=== PATIENT | male | born 1955 | race Caucasian/White ===

== ENCOUNTER 2016-09-22 14:53 | Inpatient (IN) ==
[2016-09-22] MEDS ORDERED: methylPREDNISolone 125 MG/2 ML VIAL IVP ONE (14:58)
[2016-09-22] MEDS ORDERED: Ipratropium/Albuterol Neb 3 ML IH ONE ×2 (14:58→15:26)
--- NOTE | 2016-09-22 15:16 | Emergency Department Note ---
START Narrative - START START: Patient seen upon arrival from the ambulance. He has had one month progressive dyspnea is worse today. He is on home oxygen but was able to drive the oxygen was not on them and INR saturation of 80%. He was given DuoNeb and to hospital with some partial improvement. He has had nonproductive cough. No pain. He has a history of COPD and quit smoking within the last 4 days. Moderate dyspnea. Breath sounds are symmetrically diminished throughout. No focal rhonchi or consolidation.
[2016-09-22 15:20] LABS: Basophils % 0.2 %; Eosinophils % 0.1 %; Hemoglobin 14.6 g/dL (12.9-16.9); Immature Granulocytes % 0.5 % (0-4); Immature Platelets 3.4 % (1.1-6.1); Lymphocytes # 0.9 K/mcL (0.6-4.6); Lymphocytes % 5.7 %; Mean Corpuscular HGB Conc 33.2 g/dL (31.6-35.5); Mean Corpuscular Hemoglobin 31.5 pg (28.0-33.3); Mean Corpuscular Volume 94.8 fL (83.0-100.0); Mean Platelet Volume 9.9 fL (9.4-12.4); Monocytes # 1.4 K/mcL (0.0-1.3); Monocytes % 8.9 %; Neutrophils # 13.1 K/mcL (1.6-8.9); Platelet Count 180 K/mcL (140-400); Red Blood Count 4.64 M/mcL (4.19-5.50); Red Cell Distribution Width 12.2 % (11.5-14.5); Segmented Neutrophils % 84.6 %
[2016-09-22] MEDS ORDERED: Ipratropium/Albuterol Neb 3 ML ONE (15:26)
[2016-09-22 15:33] LABS: BUN/Creatinine Ratio 25 (6-26); Blood Urea Nitrogen 21 mg/dL (8-26); Calcium 9.2 mg/dL (8.6-10.8); Carbon Dioxide 36 mEq/L (19-29); Chloride 91 mEq/L (98-109); Glucose 139 mg/dL (70-99); Osmolality,Calculated 297 (280-300); Potassium 4.1 mEq/L (3.5-4.5); Sodium 141 mEq/L (136-145); eGFR For African Americans > 60 (> 60); eGFR For Non-African Americans > 60 (> 60)
--- NOTE | 2016-09-22 15:44 | Emergency Department Note ---
Disposition Clinical Impression: Community acquired pneumonia, Elevated troponin Disposition: Admitted As Inpatient [facility]Primary Care Provider[facility] - Forms: ED Satisfaction Letter SOB HPI - General Chief Complaint: ED Shortness of Breath/Dyspnea Stated Complaint: GER Time Seen by Provider: 09/22/16 14:57 Source: patient Limitations: no limitations Nursing Notes Reviewed: Yes Vital Signs Reviewed: Yes - History of Present Illness Pt present complaint of shortness of breath this been going on for several days. Patient denies fevers and chills denies cough is productive. Patient states she feels this tightness in his chest associated with this. Patient is similar episode a few weeks ago and was seen by myself and was able to be discharged home after therapy. Patient's symptoms worsen over the past few days and is been having use his inhaler more often. Patient denies any sick contact - Related Data Home Medications Medication Instructions Recorded Confirmed Acetaminophen [Tylenol] 650 mg PO Q6HR 07/06/16 07/06/16 Albuterol Neb [Proventil Neb] 2.5 mg IH QID PRN 07/06/16 07/06/16 Aripiprazole [Abilify] 15 mg PO DAILY 07/06/16 07/06/16 Aspirin [Lo-Dose Aspirin EC] 81 mg PO DAILY 07/06/16 07/06/16 Baclofen [Lioresal] 10 mg PO TID 07/06/16 07/06/16 Budesonide/Formoterol 160/4.5 2 puff IH BID 07/06/16 07/06/16 [Symbicort 160/4.5] Dicyclomine [Bentyl] 10 mg PO TID 07/06/16 07/06/16 Docusate [Colace] 200 mg PO HS 07/06/16 07/06/16 Etodolac 400 mg PO BID 07/06/16 07/06/16 Fluticasone Propionate Nasal 100 mcg NS DAILY 07/06/16 07/06/16 [Flonase] Hydroxyzine HCl 50 mg PO BID 07/06/16 07/06/16 Lactobacillus Acidophilus 1 cap PO DAILY 07/06/16 07/06/16 [Acidophilus] Melatonin [Melatin] 9 mg PO HS 07/06/16 07/06/16 Oxybutynin Chloride [Ditropan Xl] 5 mg PO HS 07/06/16 07/06/16 Paroxetine [Paxil] 30 mg PO DAILY 07/06/16 07/06/16 Propranolol [Inderal] 10 mg PO BID 07/06/16 07/06/16 Ranitidine HCl [Acid Drill Press Hand] 150 mg PO BID 07/06/16 07/06/16 Tiotropium [Spiriva] 18 mcg IH DAILY 07/06/16 07/06/16 TraZODone 300 mg PO HS 07/06/16 07/06/16 Previous Rx's Medication Instructions Recorded Albuterol Sulfate [Proair Hfa] 2 puff IH Q4H PRN #1 hfa.aer.ad 07/07/16 Levofloxacin [Levaquin] 500 mg PO DAILY #5 tablet 07/07/16 Nicotine Patch [Nicoderm] 21 mg TD DAILY #30 patch.td24 07/07/16 PredniSONE 10 mg PO DAILY #30 tablet 07/07/16 PredniSONE [Prednisone] 50 mg PO DAILY #5 tablet 09/01/16 Albuterol Sulfate [Albuterol 2 puff IH Q4HR #1 hfa.aer.ad 09/03/16 Inhaler] Allergies Allergy/AdvReac Type Severity Reaction Status Date / Time haloperidol [From Haldol] AdvReac Muscle Pain Verified 09/01/16 04:17 [place] AdvReac Weakness Verified 09/01/16 04:17 All systems ED: reviewed and negative except as stated. Past Medical History - Past Medical History Source: patient Medical history: Reports: COPD Surgical history: Reports: cholecystectomy Psychiatric history: Reports: no psych history - Social History Smoking Status: Current every day smoker Smokeless Tobacco Status: No Alcohol use: Reports: none Drug use: Reports: cocaine, other Physical Exam - General Limitations: no limitations General appearance: alert - Head Head exam: atraumatic, normocephalic, normal inspection - Eye Eye exam: Present: normal appearance, PERRL, EOMI - ENT ENT exam: normal exam, normal oropharynx, mucous membranes moist - Neck Neck exam: Present: normal inspection, full ROM, trachea midline - Chest Chest inspection: Present: normal inspection, symmetric chest wall rise - Respiratory Respiratory exam: Present: respiratory distress, wheezes, other (fiar air movement) - Cardiovascular Cardiovascular exam: Present: normal rhythm, tachycardia, normal heart sounds - Abdominal Exam Abdominal exam: Present: soft, Non-Tender. Absent: tenderness, distention, guarding, rebound, rigidity - Extremities Exam Extremities exam: Present: normal inspection, full ROM. Absent: tenderness, pedal edema - Back Exam Back exam: Present: normal inspection, full ROM. Absent: tenderness - Neurological Exam Neurological exam: Present: alert, oriented X3 - Psychiatric Psychiatric exam: Present: normal affect, normal mood - Skin Skin exam: Present: warm, dry, intact, normal color Course Vital Signs Temperature 99.1 F 09/22/16 14:57 Pulse Rate 135 09/22/16 14:57 Respiratory Rate 24 09/22/16 14:57 Blood Pressure 109/66 09/22/16 14:57 O2 Sat by Pulse Oximetry 93 L 09/22/16 14:57 Temperature 99.1 F 09/22/16 14:57 Pulse Rate 124 09/22/16 17:11 Respiratory Rate 20 09/22/16 17:11 Blood Pressure 118/84 09/22/16 17:11 O2 Sat by Pulse Oximetry 94 L 09/22/16 17:11 Oxygen Delivery Oxygen Delivery Nasal Cannula Shortness of Breath/Dyspnea - Differential Diagnosis Likely: acute exacerbation of chronic obstructive airways disease, congestive heart failure, pneumonia, pulmonary embolism - Lab Data Result diagrams: 09/22/16 15:11 09/22/16 15:11 Lab Results 09/22/16 09/22/16 09/22/16 Range/Units 15:11 15:11 15:11 WBC 15.5 H (4.3-11.1) K/mcL RBC 4.64 (4.19-5.50) M/mcL Hgb 14.6 (12.9-16.9) g/dL Hct 44.0 (37.5-50.1) % MCV 94.8 (83.0-100.0) fL MCH 31.5 (28.0-33.3) pg MCHC 33.2 (31.6-35.5) g/dL RDW 12.2 (11.5-14.5) % Plt Count 180 (140-400) K/mcL MPV 9.9 (9.4-12.4) fL Immature Gran % 0.5 (0-4) % Seg Neutrophils % 84.6 % Lymphocytes % 5.7 % Monocytes % 8.9 % Eosinophils % 0.1 % Basophils % 0.2 % Neutrophils # 13.1 H (1.6-8.9) K/mcL Lymphocytes # 0.9 (0.6-4.6) K/mcL Monocytes # 1.4 H (0.0-1.3) K/mcL Eosinophils # 0.0 (0.0-0.6) K/mcL Basophils # 0.0 (0.0-0.2) K/mcL Immature Plt Fraction 3.4 (1.1-6.1) % Sodium 141 (136-145) mEq/L Potassium 4.1 (3.5-4.5) mEq/L Chloride 91 L (98-109) mEq/L Carbon Dioxide 36 H (19-29) mEq/L BUN 21 (8-26) mg/dL Creatinine 0.83 (0.72-1.25) mg/dL Est GFR ( Amer) > 60 (> 60) Est GFR (Non-Af Amer) > 60 (> 60) BUN/Creatinine Ratio 25 (6-26) Glucose 139 H (70-99) mg/dL Calculated Osmolality 297 (280-300) Lactic Acid (0.5-2.2) mmol/L Calcium 9.2 (8.6-10.8) mg/dL Troponin I 0.08 H* (0-0.03) ng/mL 09/22/16 Range/Units 16:54 WBC (4.3-11.1) K/mcL RBC (4.19-5.50) M/mcL Hgb (12.9-16.9) g/dL Hct (37.5-50.1) % MCV (83.0-100.0) fL MCH (28.0-33.3) pg MCHC (31.6-35.5) g/dL RDW (11.5-14.5) % Plt Count (140-400) K/mcL MPV (9.4-12.4) fL Immature Gran % (0-4) % Seg Neutrophils % % Lymphocytes % % Monocytes % % Eosinophils % % Basophils % % Neutrophils # (1.6-8.9) K/mcL Lymphocytes # (0.6-4.6) K/mcL Monocytes # (0.0-1.3) K/mcL Eosinophils # (0.0-0.6) K/mcL Basophils # (0.0-0.2) K/mcL Immature Plt Fraction (1.1-6.1) % Sodium (136-145) mEq/L Potassium (3.5-4.5) mEq/L Chloride (98-109) mEq/L Carbon Dioxide (19-29) mEq/L BUN (8-26) mg/dL Creatinine (0.72-1.25) mg/dL Est GFR ( Amer) (> 60) Est GFR (Non-Af Amer) (> 60) BUN/Creatinine Ratio (6-26) Glucose (70-99) mg/dL Calculated Osmolality (280-300) Lactic Acid 1.3 (0.5-2.2) mmol/L Calcium (8.6-10.8) mg/dL Troponin I (0-0.03) ng/mL - Radiology Data Radiology results reviewed: Yes I reviewed the patient's radiology results. Chest X-Ray 09/22/16 14:58 IMPRESSION: Left lower lobe pneumonia. D/ / Isai Crandall MD / Isai Crandall MD Interpreting Provider: Isai Crandall MD - EKG Data EKG attestation: Yes I reviewed and interpreted this EKG. EKG shows normal: Reports: sinus rhythm Rate: Reports: tachycardia Rhythm: Reports: NSR Critical Care Time Total Critical Care Time: 30 Attestation: Chest X-Ray 09/22/16 14:58
[2016-09-22] MEDS ORDERED: Levofloxacin 750 MG/150 ML 750 MG/150 ML BAG IVPB ONE (16:25)
[2016-09-22] MEDS ORDERED: Acetaminophen 325 MG TABLET PO PRN (19:28)
[2016-09-22] MEDS ORDERED: Naloxone 0.4 MG/ML INJ IVP PRN (19:28)
--- NOTE | 2016-09-22 19:28 | Internal Med History&Physical ---
Date of Encounter: 09/22/16 Time of Encounter: 19:40 Assessment and Plan (1) Acute on chronic respiratory failure with hypoxemia Current visit: Yes Status: Acute Admit inpatient. High risk for complications. Continue to supplementation. Due to pneumonia and acute COPD exacerbation. Patient will stay in the hospital for at least 2 midnights. (2) Elevated troponin Current visit: Yes Status: Acute Troponin at 0.08. Patient did describe chest pain prior to presentation that resolved spontaneously. Patient not having any chest pain at this time. EKG shows normal sinus rhythm with sinus tachycardia without any acute ST segment changes. We will trend troponins. 2-D echocardiogram in the morning. (3) Pneumonia Current visit: Yes Status: Suspected Community-acquired pneumonia. Likely due to strep pneumococcus. We will send blood and sputum for culture and sensitivity. IV antibiotics. We will also send respiratory infection. Qualifiers: Pneumonia type: due to Pneumococcus Laterality: left Lung location: lower lobe of lung Qualified Code(s): J13 - Pneumonia due to Streptococcus pneumoniae (4) Acute exacerbation of chronic obstructive airways disease Current visit: Yes Status: Acute Treat with IV steroids, O2 supplementation and scheduled bronchodilators. Internal Medicine - H&P: HPI Chief complaint: Shortness of breath, fever, cough and sputum production Admitted From: Emergency Dept History of present illness: Mr. Sosa is a 60 year old male patient with history of COPD, chronic respiratory failure on home oxygen 2 L/m presented to the ER complaining of shortness of breath, fever and chills. Symptoms have been going on for about 2 days. Also has been having cough with productive sputum. He had some mild chest pain prior to presentation. It resolved spontaneously. He also has been having palpitations. Past Med Surg Social Fam HX - Past Medical History Medical history: COPD Psychiatric history: anxiety, bipolar, depression - Past Surgical History Surgical History: cholecystectomy - Social History Smoking Status: Former smoker Smokeless Tobacco Status: No Alcohol use: none Drug use: other - Family History Mother Adopted: No Family Member Ethnicity: Non- Living Status: Hx Family Cardiac Disorders: Yes (sister) Hx Family Respiratory Disorders: Yes (dad emphezema) Hx Family Cancer: Yes (lung CA) Hx Family GI Disorders: No Hx Family Endocrine Disorder: Yes (Diabetes) Hx Family Neuromuscular Disorders: No Hx Family Neurologic Disorders: No Hx Family HEENT Disorders: No Hx Family Autoimmune Disorders: No Father Living Status: Hx Family Cancer: Yes (Lung cancer) Internal Medicine - H&P: Meds Acetaminophen [Tylenol] 650 mg PO Q6HR 07/06/16 [History] Albuterol Neb [Proventil Neb] 2.5 mg IH QID PRN 07/06/16 [History] Aripiprazole [Abilify] 15 mg PO DAILY 07/06/16 [History] Aspirin [Lo-Dose Aspirin EC] 81 mg PO DAILY 07/06/16 [History] Baclofen [Lioresal] 10 mg PO TID 07/06/16 [History] Budesonide/Formoterol 160/4.5 [Symbicort 160/4.5] 2 puff IH BID 07/06/16 [ History] Dicyclomine [Bentyl] 10 mg PO TID 07/06/16 [History] Docusate [Colace] 200 mg PO HS 07/06/16 [History] Etodolac 400 mg PO BID 07/06/16 [History] Hydroxyzine HCl 50 mg PO BID 07/06/16 [History] Lactobacillus Acidophilus [Acidophilus] 1 cap PO DAILY 07/06/16 [History] Melatonin [Melatin] 9 mg PO HS 07/06/16 [History] Oxybutynin Chloride [Ditropan Xl] 5 mg PO HS 07/06/16 [History] Paroxetine [Paxil] 30 mg PO DAILY 07/06/16 [History] Propranolol [Inderal] 10 mg PO BID 07/06/16 [History] Ranitidine HCl [Acid Aquatic Instructor] 150 mg PO BID 07/06/16 [History] Tiotropium [Spiriva] 18 mcg IH DAILY 07/06/16 [History] TraZODone 300 mg PO HS 07/06/16 [History] Albuterol Sulfate [Proair Hfa] 2 puff IH Q4H PRN #1 hfa.aer.ad 07/07/16 [Rx] Benzonatate [Tessalon] 100 mg PO TID 09/22/16 [History] Loratadine [Allergy Relief] 10 mg PO DAILY 09/22/16 [History] Nicotine Polacrilex [Nicotine Lozenge] 4 mg BC Q2H PRN 09/22/16 [History] Sildenafil Citrate [Viagra] 50 mg PO AD PRN 09/22/16 [History] Allergies haloperidol [From Haldol] Adverse Reaction (Verified 09/01/16 04:17) Muscle Pain [place] Adverse Reaction (Verified 09/01/16 04:17) Weakness All Systems PM: A 10-system review of systems was performed and is negative for pertinent findings except as documented above in the HPI. - Constitutional Constitutional: chills, fever(s), no night sweats - EENT Eyes: no change in vision, no discharge, no pain, no photophobia Nose, mouth and throat: no dysphagia, no nasal discharge, no neck pain, no sore throat - Cardiovascular Cardiovascular ROS IM: no chest pain, no diaphoresis, no dyspnea, no lightheadedness, no palpitations, no syncope - Respiratory Respiratory: cough, dyspnea, excessive phlegm production, no wheezing - Gastrointestinal Gastrointestinal: no abdominal pain, no diarrhea, no hematemesis, no hematochezia, no melena, no nausea, no vomiting - Musculoskeletal Musculoskeletal ROS IM: no numbness, no tingling - Integumentary Integumentary IM: no rash, no unusual bruising - Neurological Neurological ROS: no confusion, no convulsions, no focal weakness, no numbness, no tingling, no tremor(s) - Hematologic/Lymphatic Hematologic/Lymphatic: no easy bruising - Constitutional Vitals: Temp Pulse Resp BP Pulse Ox 98.5 F 112 18 98/69 95 09/22/16 18:46 09/22/16 18:46 09/22/16 18:46 09/22/16 18:46 09/22/16 18:46 General appearance: Present: cooperative, mild distress, A&O X 3, answers questions appropriately - Eye Eye exam: Present: EOMI, PERRL, conjuntiva pink, sclera anicteric - Neck Neck exam general surgery: Present: supple, trachea midline. Absent: lymphadenopathy - Respiratory Respiratory exam: Present: decreased breath sounds, prolonged expiratory phase, rhonchi, wheezes. Absent: accessory muscle use, rales Additional comments: Coarse breath sounds in left lower lobe - Cardiovascular Cardiovascular exam: Present: RRR, +S1, +S2, tachycardia. Absent: diastolic murmur, gallop, rubs, systolic murmur - GI/Abdominal GI/Abdominal exam: Present: normal bowel sounds, soft, no peritoneal signs. Absent: distended, tenderness - Extremities Exam Extremities exam: Present: warm, radial pulses palpable and symetrical. Absent : calf tenderness, cyanotic, pedal edema - Neurological Exam Neurological exam: Present: CN II-XII intact, oriented X3, no focal deficits. Absent: pronater drift, facial droop, speech deficit - Skin Skin exam: Present: dry, intact Internal Med - H&P Results - Labs CBC & Chem 7: 09/22/16 15:11 09/22/16 15:11 - EKG Data -: EKG Interpreted by Myself EKG shows normal: sinus rhythm Rate: tachycardia - Impressions Chest x-ray shows left lower lobe pneumonia - Attending Attestation This document has been at least partially created by [employer] voice recognition technology by Dr. Hobson. Errors in grammar, wording or other phrases may exist. If errors are found after the documentation is signed, they will be addressed individually in the addendum section of this document when appropriate.
[2016-09-22] MEDS: Budesonide/Formoterol 160/4.5 MDI IH SCH (20:31)
[2016-09-22] MEDS: Ipratropium/Albuterol Neb 3 ML IH SCH ×2 (20:31→23:07)
[2016-09-22] MEDS: traZODone 50 MG TABLET PO SCH (20:35)
[2016-09-22] MEDS: Melatonin 3 MG TABLET PO SCH (20:36)
[2016-09-22] MEDS: Benzonatate 100 MG CAPSULE PO SCH (20:36)
[2016-09-22] MEDS: 0.9 % Sodium Chloride 1,000 ML IVC SCH (20:36)
[2016-09-22] MEDS: Baclofen 10 MG TABLET PO SCH (20:36)
[2016-09-22 22:13] LABS: Adenovirus Not Detected (Not Detect); Bordetella Pertussis Not Detected (Not Detect); Coronavirus 229E Not Detected (Not Detect); Coronavirus HKU1 Not Detected (Not Detect); Coronavirus NL63 Not Detected (Not Detect); Coronavirus OC43 Not Detected (Not Detect); Human Metapneumovirus Not Detected (Not Detect); Human Rhinovirus/Enterovirus Not Detected (Not Detect); Influenza A Subtype 2009 H1 Not Detected (Not Detect); Influenza A Untypeable Not Detected (Not Detect); Influenza B Not Detected (Not Detect); Parainfluenza Virus 1 Not Detected (Not Detect); Parainfluenza Virus 2 Not Detected (Not Detect); Parainfluenza Virus 3 Not Detected (Not Detect); Parainfluenza Virus 4 Not Detected (Not Detect); Respiratory Syncytial Virus Not Detected (Not Detect)
[2016-09-22 22:14] LABS: Chlamydophila pneumoniae Not Detected (Not Detect); Mycoplasma pneumoniae Not Detected (Not Detect)
[2016-09-23] MEDS: methylPREDNISolone 125 MG/2 ML VIAL IVP SCH ×4 (00:07→23:57)
[2016-09-23] MEDS: Ipratropium/Albuterol Neb 3 ML IH SCH ×5 (04:02→19:42)
[2016-09-23] MEDS: 0.9 % Sodium Chloride 1,000 ML IVC SCH ×2 (05:49→18:22)
[2016-09-23] MEDS: *HR* Heparin 5,000 UNIT/ML VIAL SQ SCH ×2 (05:50→18:16)
[2016-09-23 06:37] LABS: Basophils % 0.1 %; Hematocrit 36.2 % (37.5-50.1); Immature Granulocytes % 0.7 % (0-4); Lymphocytes # 0.7 K/mcL (0.6-4.6); Lymphocytes % 6.8 %; Mean Corpuscular Hemoglobin 31.7 pg (28.0-33.3); Mean Corpuscular Volume 93.3 fL (83.0-100.0); Mean Platelet Volume 10.5 fL (9.4-12.4); Monocytes # 0.2 K/mcL (0.0-1.3); Monocytes % 1.7 %; Neutrophils # 9.3 K/mcL (1.6-8.9); Platelet Count 164 K/mcL (140-400); Red Blood Count 3.88 M/mcL (4.19-5.50); Red Cell Distribution Width 12.3 % (11.5-14.5); Segmented Neutrophils % 90.7 %
[2016-09-23 06:39] LABS: Hemoglobin 12.3 g/dL (12.9-16.9)
[2016-09-23 07:05] LABS: BUN/Creatinine Ratio 35 (6-26); Blood Urea Nitrogen 26 mg/dL (8-26); Calcium 8.8 mg/dL (8.6-10.8); Carbon Dioxide 34 mEq/L (19-29); Chloride 96 mEq/L (98-109); Glucose 159 mg/dL (70-99); Osmolality,Calculated 296 (280-300); Potassium 4.4 mEq/L (3.5-4.5); Sodium 139 mEq/L (136-145); eGFR For African Americans > 60 (> 60); eGFR For Non-African Americans > 60 (> 60)
[2016-09-23] MEDS: Budesonide/Formoterol 160/4.5 MDI IH SCH ×2 (08:19→19:42)
--- NOTE | 2016-09-23 08:51 | Internal Med Progress Note ---
Date of Encounter: 09/23/16 Time of Encounter: 08:49 - Assessment and plan (1) Community acquired pneumonia Current Visit: Yes Status: Acute Assessment and plan: The patient presented with respiratory symptoms, leukocytosis and tachycardia. Chest x-ray reviewed independently, shows left basilar infiltrates. Continue IV Levaquin and IV hydration. Follow blood and sputum cultures. Respiratory viral panel negative. Urine Legionella antigen negative. Supplemental oxygen and supportive care. (2) Severe sepsis Current Visit: Yes Status: Acute Assessment and plan: Secondary to pneumonia. Lactic acid noted to be within normal limits. Patient had a mild elevation in troponin, likely related to severe sepsis and is currently normal. Follow-up echocardiogram. Continue IV antibiotics. (3) Acute exacerbation of chronic obstructive airways disease Current Visit: Yes Status: Acute Assessment and plan: Improving. Tapered on IV steroids as tolerated. Continue bronchodilators and inhaled corticosteroids. Patient is noted to be on home oxygen, continue to wean down FiO2 to baseline as tolerated. (4) Acute on chronic respiratory failure with hypoxemia Current Visit: Yes Status: Acute (5) Depression Current Visit: Yes Status: Chronic Assessment and plan: Resume home medications. Qualifiers: Depression Type: unspecified Qualified Code(s): F32.9 - Major depressive disorder, single episode, unspecified (6) Bipolar disease, chronic Current Visit: Yes Status: Chronic (7) Anxiety Current Visit: Yes Status: Chronic - Subjective Interval history: Feels better but drowsy, as he did not have good sleep last night. Continues to have productive cough but improved shortness of breath. - Constitutional Vitals: Temp Pulse Resp BP Pulse Ox 98.4 F 94 16 108/77 90 L 09/23/16 07:45 09/23/16 07:45 09/23/16 07:45 09/23/16 07:45 09/23/16 07:45 General appearance: Present: A&O X 3, answers questions appropriately - Respiratory Respiratory exam: Present: CTAB. Absent: accessory muscle use, rales, rhonchi, wheezes - Cardiovascular Cardiovascular exam: Present: RRR, +S1, +S2. Absent: diastolic murmur, gallop, rubs, systolic murmur - GI/Abdominal GI/Abdominal exam: Present: normal bowel sounds, soft, no peritoneal signs. Absent: distended, tenderness - Extremities Exam Extremities exam: Present: full ROM, warm, radial pulses palpable and symetrical. Absent: calf tenderness, cyanotic, pedal edema - Neurological Exam Neurological exam: Present: CN II-XII intact, oriented X3, no focal deficits. Absent: pronater drift, facial droop, speech deficit Internal Medicine: Result - Labs CBC & Chem 7: 09/23/16 06:06 09/23/16 06:06 Labs: Short CBC 09/23/16 Range/Units 06:06 WBC 10.3 (4.3-11.1) K/mcL Hgb 12.3 L D (12.9-16.9) g/dL Hct 36.2 L (37.5-50.1) % Plt Count 164 (140-400) K/mcL Neutrophils # 9.3 H (1.6-8.9) K/mcL BMP 09/23/16 06:06 Sodium 139 Potassium 4.4 Chloride 96 L Carbon Dioxide 34 H BUN 26 Creatinine 0.74 Glucose 159 H Calcium 8.8 Cardiac Enzymes 09/22/16 09/23/16 Range/Units 21:13 06:06 Troponin I 0.05 H* 0.03 (0-0.03) ng/mL Consult Discharge Plan - Plan [facility]errals: [facility] [Primary Care Provider] -
[2016-09-23] MEDS: Baclofen 10 MG TABLET PO SCH ×3 (09:57→21:20)
[2016-09-23] MEDS: Loratadine 10 MG TABLET PO SCH (09:58)
[2016-09-23] MEDS: ARIPiprazole 5 MG TABLET PO SCH (09:58)
[2016-09-23] MEDS: Lactobacillus 1 EACH CAP.SPRINK PO SCH (09:58)
[2016-09-23] MEDS: Benzonatate 100 MG CAPSULE PO SCH ×3 (09:58→21:19)
[2016-09-23] MEDS: Aspirin Enteric Coated 81 MG Tablet PO SCH (09:58)
[2016-09-23] MEDS: Famotidine 20 MG TABLET PO SCH (09:58)
[2016-09-23] MEDS: Levofloxacin 750 MG/150 ML 750 MG/150 ML BAG IVPB SCH (09:59)
--- NOTE | 2016-09-23 10:31 | ECHO - Doppler Report ---
Echocardiogram Name: Pa Sosa Date of Study: 09/23/2016 Date: 1955 Ht: 70.0 in Medical Record#: [id number] Age: 60 Wt: 150.0 lb Gender: Male BSA: 1.85 Order #: [id number] Location: [facility] Room #: 2NE23 Reading Physician: Mone Sharma DO Boat Puller: Phillip Moreland RN Ordering Physician: Polina Hobson MD Primary Physician: [facility] Indications: Elevated Troponin Impressions: LVEF 65%. Normal left ventricular size and systolic function. Normal diastolic function of the left ventricle. Normal right ventricular size and function. No significant valvular dysfunction. No pulmonary hypertension. Left Ventricular Wall Motion: Rest Echo Findings All wall segments showed normal motion. Findings: Study Quality * Technically adequate exam. ECG Findings * Normal sinus rhythm. Left Ventricle * Normal LV chamber size, wall thickness and function. * Normal left ventricular diastolic function. * LVEF 65%. Left Atrium * Normal left atrial size. Mitral Valve * Normal mitral valve structure. * No mitral stenosis. * Trace mitral regurgitation. Tricuspid Valve * Trace tricuspid regurgitation. * Normal tricuspid valve structure. * Estimated RA pressure is 3 mmHg. * Estimated RVSP is 34 mmHg. * No pulmonary hypertension. Pulmonic Valve * Pulmonic valve is not well visualized. * No pulmonic stenosis. * No pulmonic regurgitation. Pulmonary Artery * Pulmonary artery not well visualized. Right Ventricle * Normal right ventricular structure and function. Right Atrium * Normal right atrial size. Aortic Valve * No aortic stenosis. * Trace aortic regurgitation. Interatrial Septum * No evidence of PFO by color Doppler. IVC * Normal IVC dimensions and inspiratory collapse. Pericardium * There is no pericardial effusion present. Aorta * Not well visualized. History Hypertension Hypercholesteremia Years 35 Packs 2 Family History of CAD Measurements: BP: 108/ 77 2D Normal Values RVIDd: 2.70 cm <2.7 cm IVSd: .70 cm 0.6 - 1.0 cm LVIDd: 5.00 cm 3.7 - 5.6 cm LVPWd: .70 cm 0.6 - 1.1 cm LVIDs: 3.00 cm 1.5 - 3.6 cm LA: 2.60 cm 2.0 - 4.0cm %FS: 40.00 cm >25 % LVOT Diam: 2.00 cm LA volume: 39 Mitral Valve Peak E:.95 m/sec Peak A:.87 m/sec E/A Ratio:1.1 Peak E' Lat [place]:9.36 cm/s Peak E' Med [place]:13 cm/s E/E' Lat Ratio:10.1 E/E' Med Ratio:7.3 Aortic Valve AI pressure Half-time: 373.00 msec Tricuspid Valve TV Regurg Peak Grad: 31.00mmHg TV Regurg Peak [place]: 2.80m/sec Updated by Mone Sharma on 09/23/2016 10:24:31 AM electronically signed on 09/23/2016 10:25:24 AM with status of Final Wall Motion [place]: 1=Normal, 2=Hypokinesis, 3=Akinesis, 4=Dyskinesis, 5=Aneurysmal, 6=Hyperkinetic, X=Not Visualized (Blank)=Missing
--- NOTE | 2016-09-23 16:57 | Electrocardiograph Report ---
[place] [id number] Test Date: 2016-09-22 Pat Name: Pa Sosa Department: 103 Room: 2NE23 Gender: M Personal Care Aide: : 1955 Requested By: Rebekah Goldsmith Order Number: [id number] Reading MD: Ivan Daniels Measurements Intervals [place] Rate: 124 P: 85 AK: 166 QRS: 82 QRSD: 79 T: 74 QT: 284 QTc: 358 Interpretive Statements SINUS TACHYCARDIA ANTEROSEPTAL MYOCARDIAL INFARCTION, OF INDETERMINATE AGE Electronically Signed On 09-23-2016 16:55:07 EST by Ivan Daniels
[2016-09-23] MEDS: Melatonin 3 MG TABLET PO SCH (21:20)
[2016-09-23] MEDS: traZODone 50 MG TABLET PO SCH (21:22)
[2016-09-24] MEDS: Ipratropium/Albuterol Neb 3 ML IH SCH ×7 (00:12→23:53)
[2016-09-24] MEDS: 0.9 % Sodium Chloride 1,000 ML IVC SCH ×3 (04:58→23:39)
[2016-09-24] MEDS: *HR* Heparin 5,000 UNIT/ML VIAL SQ SCH ×2 (05:00→18:56)
[2016-09-24] MEDS: Budesonide/Formoterol 160/4.5 MDI IH SCH ×2 (07:56→20:32)
[2016-09-24] MEDS: methylPREDNISolone 125 MG/2 ML VIAL IVP SCH ×3 (11:15→23:39)
[2016-09-24] MEDS: ARIPiprazole 5 MG TABLET PO SCH (11:16)
[2016-09-24] MEDS: Lactobacillus 1 EACH CAP.SPRINK PO SCH (11:16)
[2016-09-24] MEDS: Benzonatate 100 MG CAPSULE PO SCH ×3 (11:16→20:44)
[2016-09-24] MEDS: Aspirin Enteric Coated 81 MG Tablet PO SCH (11:17)
[2016-09-24] MEDS: Levofloxacin 750 MG/150 ML 750 MG/150 ML BAG IVPB SCH (11:17)
[2016-09-24] MEDS: Famotidine 20 MG TABLET PO SCH (11:17)
[2016-09-24] MEDS: Loratadine 10 MG TABLET PO SCH (11:17)
[2016-09-24] MEDS: Baclofen 10 MG TABLET PO SCH ×3 (11:17→20:44)
--- NOTE | 2016-09-24 16:42 | Internal Med Progress Note ---
Date of Encounter: 09/24/16 Time of Encounter: 10:00 - Assessment and plan (1) Acute exacerbation of chronic obstructive airways disease Current Visit: Yes Status: Acute Assessment and plan: Improving. Tapered on IV steroids as tolerated. Continue bronchodilators and inhaled corticosteroids. Patient is noted to be on home oxygen, continue to wean down FiO2 to baseline as tolerated. (2) Community acquired pneumonia Current Visit: Yes Status: Acute Assessment and plan: The patient presented with respiratory symptoms, leukocytosis and tachycardia. Chest x-ray reviewed independently, shows left basilar infiltrates. Continue IV Levaquin and IV hydration. Follow blood and sputum cultures. Respiratory viral panel negative. Urine Legionella antigen negative. Supplemental oxygen and supportive care. (3) Severe sepsis Current Visit: Yes Status: Acute Assessment and plan: Secondary to pneumonia. Lactic acid noted to be within normal limits. Patient had a mild elevation in troponin, likely related to severe sepsis and is currently normal. Echocardiogram unremarkable. Continue IV antibiotics. (4) Anxiety Current Visit: Yes Status: Chronic Assessment and plan: Continue home medications (5) Bipolar disease, chronic Current Visit: Yes Status: Chronic Assessment and plan: Continue home medication (6) Depression Current Visit: Yes Status: Chronic Assessment and plan: Resume home medications. Qualifiers: Depression Type: unspecified Qualified Code(s): F32.9 - Major depressive disorder, single episode, unspecified (7) DVT prophylaxis Current Visit: No Status: Acute Assessment and plan: Heparin subcutaneously. - Time Spent With Patient 25 - 35 minutes - Subjective Interval history: Patient is a 60-year-old male admitted for pneumonia. His past medical history is significant for COPD, anxiety, and depression. Patient was seen and examined. No fever, patient complaining of severe cough, nonproductive. Shortness of breath has improved after treatment. Vitals are stable. We will continue antibiotic, steroid, and bronchodilator. - Constitutional Vitals: Temp Pulse Resp BP Pulse Ox 98.2 F 81 18 114/70 95 09/24/16 15:20 09/24/16 15:20 09/24/16 15:20 09/24/16 15:20 09/24/16 15:20 General appearance: Present: A&O X 3, answers questions appropriately - Head Head exam: Present: atraumatic, normocephalic - Eye Eye exam: Present: PERRL, conjuntiva pink, sclera anicteric Pupils: Present: PERRL - Neck Neck exam general surgery: Present: supple, trachea midline. Absent: lymphadenopathy - Respiratory Respiratory exam: Present: CTAB, wheezes (Scattered wheezes bilaterally). Absent: accessory muscle use, rales, rhonchi - Cardiovascular Cardiovascular exam: Present: RRR, +S1, +S2. Absent: diastolic murmur, gallop, rubs, systolic murmur - GI/Abdominal GI/Abdominal exam: Present: normal bowel sounds, soft, no peritoneal signs. Absent: distended, tenderness - Extremities Exam Extremities exam: Present: warm, radial pulses palpable and symetrical. Absent : calf tenderness, cyanotic, pedal edema - Neurological Exam Neurological exam: Present: CN II-XII intact, oriented X3, no focal deficits. Absent: pronater drift, facial droop, speech deficit - Skin Skin exam: Present: dry, intact Internal Medicine: Result - Labs CBC & Chem 7: 09/23/16 06:06 09/23/16 06:06 Consult Discharge Plan - Plan [facility]: [facility] [Primary Care Provider[facility] -
[2016-09-24] MEDS: traZODone 50 MG TABLET PO SCH (20:43)
[2016-09-24] MEDS: Melatonin 3 MG TABLET PO SCH (20:44)
[2016-09-25] MEDS: Ipratropium/Albuterol Neb 3 ML IH SCH ×6 (03:34→23:42)
[2016-09-25 05:22] LABS: Basophils % 0.1 %; Hematocrit 36.1 % (37.5-50.1); Hemoglobin 11.8 g/dL (12.9-16.9); Immature Granulocytes % 0.3 % (0-4); Lymphocytes # 0.6 K/mcL (0.6-4.6); Lymphocytes % 7.5 %; Mean Corpuscular HGB Conc 32.7 g/dL (31.6-35.5); Mean Corpuscular Hemoglobin 31.4 pg (28.0-33.3); Mean Platelet Volume 10.2 fL (9.4-12.4); Monocytes # 0.2 K/mcL (0.0-1.3); Monocytes % 2.2 %; Neutrophils # 7.7 K/mcL (1.6-8.9); Platelet Count 164 K/mcL (140-400); Red Blood Count 3.76 M/mcL (4.19-5.50); Red Cell Distribution Width 12.2 % (11.5-14.5); Segmented Neutrophils % 89.9 %
[2016-09-25 05:41] LABS: BUN/Creatinine Ratio 40 (6-26); Blood Urea Nitrogen 28 mg/dL (8-26); Calcium 8.2 mg/dL (8.6-10.8); Carbon Dioxide 34 mEq/L (19-29); Chloride 102 mEq/L (98-109); Glucose 188 mg/dL (70-99); Osmolality,Calculated 302 (280-300); Potassium 4.5 mEq/L (3.5-4.5); Sodium 141 mEq/L (136-145); eGFR For African Americans > 60 (> 60); eGFR For Non-African Americans > 60 (> 60)
[2016-09-25] MEDS: *HR* Heparin 5,000 UNIT/ML VIAL SQ SCH ×2 (05:46→18:05)
[2016-09-25] MEDS: Budesonide/Formoterol 160/4.5 MDI IH SCH ×2 (07:30→20:38)
[2016-09-25] MEDS: Loratadine 10 MG TABLET PO SCH (08:32)
[2016-09-25] MEDS: Baclofen 10 MG TABLET PO SCH ×3 (08:34→21:33)
[2016-09-25] MEDS: Famotidine 20 MG TABLET PO SCH (08:34)
[2016-09-25] MEDS: ARIPiprazole 5 MG TABLET PO SCH (08:34)
[2016-09-25] MEDS: Benzonatate 100 MG CAPSULE PO SCH ×3 (08:34→21:34)
[2016-09-25] MEDS: Lactobacillus 1 EACH CAP.SPRINK PO SCH (08:34)
[2016-09-25] MEDS: methylPREDNISolone 125 MG/2 ML VIAL IVP SCH ×3 (08:35→23:38)
[2016-09-25] MEDS: Levofloxacin 750 MG/150 ML 750 MG/150 ML BAG IVPB SCH (08:36)
[2016-09-25] MEDS: Aspirin Enteric Coated 81 MG Tablet PO SCH (08:45)
[2016-09-25] MEDS ORDERED: Magnesium Sulfate 1 GM in D5% in Water 100 ML IVPB ONE (15:11)
--- NOTE | 2016-09-25 17:14 | Internal Med Progress Note ---
Date of Encounter: 09/25/16 Time of Encounter: 11:00 - Assessment and plan (1) Acute exacerbation of chronic obstructive airways disease Current Visit: Yes Status: Acute Assessment and plan: Improving. Tapered on IV steroids as tolerated. Continue bronchodilators and inhaled corticosteroids. Patient is noted to be on home oxygen, continue to wean down FiO2 to baseline as tolerated. Give 1 g magnesium IV today. Changes propranolol to metoprolol (2) Community acquired pneumonia Current Visit: Yes Status: Acute Assessment and plan: The patient presented with respiratory symptoms, leukocytosis and tachycardia. Chest x-ray reviewed independently, shows left basilar infiltrates. Continue Levaquin. Follow blood and sputum cultures. Respiratory viral panel negative. Urine Legionella antigen negative. Supplemental oxygen and supportive care. (3) Severe sepsis Current Visit: Yes Status: Acute Assessment and plan: Secondary to pneumonia. Lactic acid noted to be within normal limits. Patient had a mild elevation in troponin, likely related to severe sepsis and is currently normal. Echocardiogram unremarkable. Continue antibiotics. (4) Anxiety Current Visit: Yes Status: Chronic Assessment and plan: Continue home medications (5) Bipolar disease, chronic Current Visit: Yes Status: Chronic Assessment and plan: Continue home medication (6) Depression Current Visit: Yes Status: Chronic Assessment and plan: Resume home medications. Qualifiers: Depression Type: unspecified Qualified Code(s): F32.9 - Major depressive disorder, single episode, unspecified (7) DVT prophylaxis Current Visit: No Status: Acute Assessment and plan: Heparin subcutaneously. - Time Spent With Patient 25 - 35 minutes - Subjective Interval history: Patient is a 60-year-old male admitted for pneumonia. His past medical history is significant for COPD, anxiety, and depression. Patient was seen and examined. Still shortness of breath and desaturation on exertion. Improved cough after cough syrup to use. Vitals are stable. We will continue antibiotic, steroid, and bronchodilator. Given patient magnesium iv 1 g. Changes his propranolol to metoprolol to avoid bronchial side effect. - Constitutional Vitals: Temp Pulse Resp BP Pulse Ox 97.8 F 87 18 126/81 95 09/25/16 15:19 09/25/16 15:19 09/25/16 15:19 09/25/16 15:19 09/25/16 15:19 General appearance: Present: A&O X 3, answers questions appropriately - Head Head exam: Present: atraumatic, normocephalic - Eye Eye exam: Present: PERRL, conjuntiva pink, sclera anicteric Pupils: Present: PERRL - Neck Neck exam general surgery: Present: supple, trachea midline. Absent: lymphadenopathy - Respiratory Respiratory exam: Present: CTAB, wheezes (Scattered wheezes bilaterally). Absent: accessory muscle use, rales, rhonchi - Cardiovascular Cardiovascular exam: Present: RRR, +S1, +S2. Absent: diastolic murmur, gallop, rubs, systolic murmur - GI/Abdominal GI/Abdominal exam: Present: normal bowel sounds, soft, no peritoneal signs. Absent: distended, tenderness - Extremities Exam Extremities exam: Present: warm, radial pulses palpable and symetrical. Absent : calf tenderness, cyanotic, pedal edema - Neurological Exam Neurological exam: Present: CN II-XII intact, oriented X3, no focal deficits. Absent: pronater drift, facial droop, speech deficit - Skin Skin exam: Present: dry, intact Internal Medicine: Result - Labs CBC & Chem 7: 09/25/16 04:30 09/25/16 04:30 Labs: Short CBC 09/25/16 Range/Units 04:30 WBC 8.6 (4.3-11.1) K/mcL Hgb 11.8 L (12.9-16.9) g/dL Hct 36.1 L (37.5-50.1) % Plt Count 164 (140-400) K/mcL Neutrophils # 7.7 (1.6-8.9) K/mcL BMP 09/25/16 04:30 Sodium 141 Potassium 4.5 Chloride 102 Carbon Dioxide 34 H BUN 28 H Creatinine 0.70 L Glucose 188 H Calcium 8.2 L Consult Discharge Plan - Plan [facility]errals: [facility] [Primary Care Provider[facility] - 10/03/16 8:15 am
[2016-09-25] MEDS ORDERED: Furosemide 20 MG/2 ML VIAL IVP ONE (18:13)
[2016-09-25 18:35] LABS: ABG Base Excess 9.3 mEq/L (-2.0 to 3.0); ABG Oxygen Saturation 84 % (95-98); ABG PH 7.27 pH Units (7.32-7.45); ABG PO2 56 mmHg (85-104); ABG TCO2 42.7 mEq/L (20-26); Blood Gas FiO2 40 %
[2016-09-25 18:37] LABS: ABG PCO2 87 mmHg (35-45)
[2016-09-25] MEDS: traZODone 50 MG TABLET PO SCH (21:32)
[2016-09-25] MEDS: Melatonin 3 MG TABLET PO SCH (21:34)
[2016-09-26 01:19] LABS: ABG Base Excess 23.8 mEq/L (-2.0 to 3.0); ABG HCO3 52.1 mEQ/L (21-27); ABG Oxygen Saturation 99 % (95-98); ABG PH 7.45 pH Units (7.32-7.45); ABG PO2 120 mmHg (85-104); ABG TCO2 54.4 mEq/L (20-26); Blood Gas FiO2 40 %
[2016-09-26 01:20] LABS: ABG PCO2 75 mmHg (35-45)
[2016-09-26] MEDS: Ipratropium/Albuterol Neb 3 ML IH SCH ×5 (04:06→20:48)
[2016-09-26] MEDS: *HR* Heparin 5,000 UNIT/ML VIAL SQ SCH ×2 (05:03→17:17)
[2016-09-26 06:50] LABS: Hematocrit 36.4 % (37.5-50.1); Immature Granulocytes % 0.6 % (0-4); Lymphocytes # 0.7 K/mcL (0.6-4.6); Lymphocytes % 9.2 %; Mean Corpuscular Hemoglobin 31.6 pg (28.0-33.3); Mean Corpuscular Volume 95.8 fL (83.0-100.0); Mean Platelet Volume 10.3 fL (9.4-12.4); Monocytes # 0.3 K/mcL (0.0-1.3); Monocytes % 3.2 %; Platelet Count 164 K/mcL (140-400); Red Cell Distribution Width 11.9 % (11.5-14.5)
[2016-09-26 06:58] LABS: BUN/Creatinine Ratio 37 (6-26); Blood Urea Nitrogen 26 mg/dL (8-26); Calcium 8.2 mg/dL (8.6-10.8); Chloride 94 mEq/L (98-109); Glucose 189 mg/dL (70-99); Osmolality,Calculated 302 (280-300); Potassium 4.4 mEq/L (3.5-4.5); Sodium 141 mEq/L (136-145); eGFR For African Americans > 60 (> 60); eGFR For Non-African Americans > 60 (> 60)
[2016-09-26 07:04] LABS: Carbon Dioxide 40 mEq/L (19-29)
[2016-09-26] MEDS: Famotidine 20 MG TABLET PO SCH (07:45)
[2016-09-26] MEDS: Loratadine 10 MG TABLET PO SCH (07:45)
[2016-09-26] MEDS: Lactobacillus 1 EACH CAP.SPRINK PO SCH (07:45)
[2016-09-26] MEDS: Benzonatate 100 MG CAPSULE PO SCH ×3 (07:46→21:46)
[2016-09-26] MEDS: ARIPiprazole 5 MG TABLET PO SCH (07:46)
[2016-09-26] MEDS: Baclofen 10 MG TABLET PO SCH ×3 (07:46→21:48)
[2016-09-26] MEDS: levoFLOXacin 750 MG TABLET PO SCH (07:46)
[2016-09-26] MEDS: Aspirin Enteric Coated 81 MG Tablet PO SCH (07:46)
[2016-09-26] MEDS: methylPREDNISolone 125 MG/2 ML VIAL IVP SCH ×2 (07:47→17:17)
[2016-09-26] MEDS: Budesonide/Formoterol 160/4.5 MDI IH SCH ×2 (08:00→20:49)
[2016-09-26] MEDS ORDERED: Tiotropium 18 MCG inhalation IH SCH (09:00)
--- NOTE | 2016-09-26 15:36 | Internal Med Progress Note ---
Date of Encounter: 09/26/16 Time of Encounter: 10:00 - Assessment and plan (1) Acute exacerbation of chronic obstructive airways disease Current Visit: Yes Status: Acute Assessment and plan: Improving. Tapered on IV steroids as tolerated. Continue bronchodilators and inhaled corticosteroids. Patient is noted to be on home oxygen, continue to wean down FiO2 to baseline as tolerated. Give 1 g magnesium IV today. Changes propranolol to metoprolol. Add mucomyst IH. (2) Community acquired pneumonia Current Visit: Yes Status: Acute Assessment and plan: The patient presented with respiratory symptoms, leukocytosis and tachycardia. Chest x-ray reviewed independently, shows left basilar infiltrates. Continue Levaquin. Follow blood and sputum cultures. Respiratory viral panel negative. Urine Legionella antigen negative. Supplemental oxygen and supportive care. (3) Severe sepsis Current Visit: Yes Status: Acute Assessment and plan: Secondary to pneumonia. Lactic acid noted to be within normal limits. Patient had a mild elevation in troponin, likely related to severe sepsis and is currently normal. Echocardiogram unremarkable. Continue antibiotics. (4) Anxiety Current Visit: Yes Status: Chronic Assessment and plan: Continue home medications (5) Bipolar disease, chronic Current Visit: Yes Status: Chronic Assessment and plan: Continue home medication (6) Depression Current Visit: Yes Status: Chronic Assessment and plan: Resume home medications. Qualifiers: Depression Type: unspecified Qualified Code(s): F32.9 - Major depressive disorder, single episode, unspecified (7) DVT prophylaxis Current Visit: No Status: Acute Assessment and plan: Heparin subcutaneously. - Time Spent With Patient 25 - 35 minutes - Subjective Interval history: Patient is a 60-year-old male admitted for pneumonia. His past medical history is significant for COPD, anxiety, and depression. Patient was seen and examined. Still shortness of breath and desaturation on exertion. Improved cough after cough syrup to use. Vitals are stable. We will continue antibiotic, steroid, and bronchodilator. Given patient magnesium iv 1 g. Changes his propranolol to metoprolol to avoid bronchial side effect. - Constitutional Vitals: Temp Pulse Resp BP Pulse Ox 98.2 F 78 15 131/76 93 L 09/26/16 07:00 09/26/16 11:00 09/26/16 11:00 09/26/16 11:00 09/26/16 11:00 General appearance: Present: A&O X 3, answers questions appropriately - Head Head exam: Present: atraumatic, normocephalic - Eye Eye exam: Present: PERRL, conjuntiva pink, sclera anicteric Pupils: Present: PERRL - Neck Neck exam general surgery: Present: supple, trachea midline. Absent: lymphadenopathy - Respiratory Respiratory exam: Present: CTAB, wheezes (Scattered wheezes bilaterally). Absent: accessory muscle use, rales, rhonchi - Cardiovascular Cardiovascular exam: Present: RRR, +S1, +S2. Absent: diastolic murmur, gallop, rubs, systolic murmur - GI/Abdominal GI/Abdominal exam: Present: normal bowel sounds, soft, no peritoneal signs. Absent: distended, tenderness - Extremities Exam Extremities exam: Present: warm, radial pulses palpable and symetrical. Absent : calf tenderness, cyanotic, pedal edema - Neurological Exam Neurological exam: Present: CN II-XII intact, oriented X3, no focal deficits. Absent: pronater drift, facial droop, speech deficit - Skin Skin exam: Present: dry, intact Internal Medicine: Result - Labs CBC & Chem 7: 09/26/16 05:44 09/26/16 05:44 Labs: Short CBC 09/26/16 Range/Units 05:44 WBC 8.0 (4.3-11.1) K/mcL Hgb 12.0 L (12.9-16.9) g/dL Hct 36.4 L (37.5-50.1) % Plt Count 164 (140-400) K/mcL Neutrophils # 7.0 (1.6-8.9) K/mcL BMP 09/26/16 05:44 Sodium 141 Potassium 4.4 Chloride 94 L Carbon Dioxide 40 H* BUN 26 Creatinine 0.71 L Glucose 189 H Calcium 8.2 L - ABG Interpretation ABG results: ABG ABG pH 7.45 pH Units (7.32-7.45) 09/26/16 01:08 ABG pCO2 75 mmHg (35-45) H* 09/26/16 01:08 ABG pO2 120 mmHg (85-104) H 09/26/16 01:08 ABG O2 Saturation 99 % (95-98) H 09/26/16 01:08 Consult Discharge Plan - Plan [facility]errals: [facility] [Primary Care Provider[facility] - 10/03/16 8:15 am
[2016-09-26] MEDS: Acetylcysteine 10% 2 ML INHSOL IH SCH ×2 (16:00→20:48)
[2016-09-26] MEDS: traZODone 50 MG TABLET PO SCH (21:46)
[2016-09-26] MEDS: Melatonin 3 MG TABLET PO SCH (21:47)
[2016-09-27] MEDS: Ipratropium/Albuterol Neb 3 ML IH SCH ×7 (00:22→23:25)
[2016-09-27] MEDS: Acetylcysteine 10% 2 ML INHSOL IH SCH ×7 (00:23→23:25)
[2016-09-27 05:52] LABS: Basophils % 0.1 %; Hematocrit 36.6 % (37.5-50.1); Hemoglobin 12.3 g/dL (12.9-16.9); Immature Granulocytes % 0.7 % (0-4); Lymphocytes # 0.6 K/mcL (0.6-4.6); Lymphocytes % 6.8 %; Mean Corpuscular HGB Conc 33.6 g/dL (31.6-35.5); Mean Corpuscular Hemoglobin 31.1 pg (28.0-33.3); Mean Corpuscular Volume 92.7 fL (83.0-100.0); Mean Platelet Volume 10.1 fL (9.4-12.4); Monocytes # 0.2 K/mcL (0.0-1.3); Monocytes % 2.4 %; Neutrophils # 7.5 K/mcL (1.6-8.9); Platelet Count 182 K/mcL (140-400); Red Blood Count 3.95 M/mcL (4.19-5.50); Red Cell Distribution Width 11.6 % (11.5-14.5)
[2016-09-27 06:01] LABS: BUN/Creatinine Ratio 38 (6-26); Blood Urea Nitrogen 29 mg/dL (8-26); Carbon Dioxide 36 mEq/L (19-29); Chloride 93 mEq/L (98-109); Glucose 272 mg/dL (70-99); Osmolality,Calculated 301 (280-300); Potassium 4.3 mEq/L (3.5-4.5); Sodium 138 mEq/L (136-145); eGFR For African Americans > 60 (> 60); eGFR For Non-African Americans > 60 (> 60)
[2016-09-27] MEDS: *HR* Heparin 5,000 UNIT/ML VIAL SQ SCH ×2 (06:09→17:26)
[2016-09-27] MEDS: Budesonide/Formoterol 160/4.5 MDI IH SCH ×2 (07:41→20:30)
[2016-09-27] MEDS: Aspirin Enteric Coated 81 MG Tablet PO SCH (10:45)
[2016-09-27] MEDS: methylPREDNISolone 125 MG/2 ML VIAL IVP SCH ×4 (10:45→23:37)
[2016-09-27] MEDS: Loratadine 10 MG TABLET PO SCH (10:46)
[2016-09-27] MEDS: Baclofen 10 MG TABLET PO SCH ×3 (10:46→19:55)
[2016-09-27] MEDS: Lactobacillus 1 EACH CAP.SPRINK PO SCH (10:46)
[2016-09-27] MEDS: ARIPiprazole 5 MG TABLET PO SCH (10:46)
[2016-09-27] MEDS: Benzonatate 100 MG CAPSULE PO SCH ×3 (10:46→19:55)
[2016-09-27] MEDS: Famotidine 20 MG TABLET PO SCH (10:46)
[2016-09-27] MEDS: levoFLOXacin 750 MG TABLET PO SCH (10:46)
--- NOTE | 2016-09-27 16:26 | Internal Med Progress Note ---
Date of Encounter: 09/27/16 Time of Encounter: 11:00 - Assessment and plan (1) Acute exacerbation of chronic obstructive airways disease Current Visit: Yes Status: Acute Assessment and plan: Improving. Tapered on IV steroids as tolerated. Continue bronchodilators and inhaled corticosteroids. Patient is noted to be on home oxygen, continue to wean down FiO2 to baseline as tolerated. Start to taper down steroids from today. (2) Community acquired pneumonia Current Visit: Yes Status: Acute Assessment and plan: The patient presented with respiratory symptoms, leukocytosis and tachycardia. Chest x-ray reviewed independently, shows left basilar infiltrates. Continue Levaquin. Follow blood and sputum cultures. Respiratory viral panel negative. Urine Legionella antigen negative. Supplemental oxygen and supportive care. (3) Severe sepsis Current Visit: Yes Status: Acute Assessment and plan: Secondary to pneumonia. Lactic acid noted to be within normal limits. Patient had a mild elevation in troponin, likely related to severe sepsis and is currently normal. Echocardiogram unremarkable. Continue antibiotics. (4) Anxiety Current Visit: Yes Status: Chronic Assessment and plan: Continue home medications (5) Bipolar disease, chronic Current Visit: Yes Status: Chronic Assessment and plan: Continue home medication (6) Depression Current Visit: Yes Status: Chronic Assessment and plan: Resume home medications. Qualifiers: Depression Type: unspecified Qualified Code(s): F32.9 - Major depressive disorder, single episode, unspecified (7) DVT prophylaxis Current Visit: No Status: Acute Assessment and plan: Heparin subcutaneously. - Time Spent With Patient 25 - 35 minutes - Subjective Interval history: Patient is a 60-year-old male admitted for pneumonia. His past medical history is significant for COPD, anxiety, and depression. Patient was seen and examined. Still shortness of breath and desaturation on exertion, significantly improved compared with yesterday. Improved cough after cough syrup to use. Vitals are stable. We will continue antibiotic, steroid, and bronchodilator. Taper down steroids. - Constitutional Vitals: Temp Pulse Resp BP Pulse Ox 97.4 F L 78 18 126/74 93 L 09/27/16 07:54 09/27/16 07:54 09/27/16 16:06 09/27/16 07:54 09/27/16 16:06 General appearance: Present: A&O X 3, answers questions appropriately - Head Head exam: Present: atraumatic, normocephalic - Eye Eye exam: Present: PERRL, conjuntiva pink, sclera anicteric Pupils: Present: PERRL - Neck Neck exam general surgery: Present: supple, trachea midline. Absent: lymphadenopathy - Respiratory Respiratory exam: Present: CTAB, wheezes (Scattered wheezes on left side). Absent: accessory muscle use, rales, rhonchi - Cardiovascular Cardiovascular exam: Present: RRR, +S1, +S2. Absent: diastolic murmur, gallop, rubs, systolic murmur - GI/Abdominal GI/Abdominal exam: Present: normal bowel sounds, soft, no peritoneal signs. Absent: distended, tenderness - Extremities Exam Extremities exam: Present: warm, radial pulses palpable and symetrical. Absent : calf tenderness, cyanotic, pedal edema - Neurological Exam Neurological exam: Present: CN II-XII intact, oriented X3, no focal deficits. Absent: pronater drift, facial droop, speech deficit - Skin Skin exam: Present: dry, intact Internal Medicine: Result - Labs CBC & Chem 7: 09/27/16 05:15 09/27/16 05:15 Labs: Short CBC 09/27/16 Range/Units 05:15 WBC 8.3 (4.3-11.1) K/mcL Hgb 12.3 L (12.9-16.9) g/dL Hct 36.6 L (37.5-50.1) % Plt Count 182 (140-400) K/mcL Neutrophils # 7.5 (1.6-8.9) K/mcL BMP 09/27/16 05:15 Sodium 138 Potassium 4.3 Chloride 93 L Carbon Dioxide 36 H BUN 29 H Creatinine 0.77 Glucose 272 H Calcium 8.0 L - ABG Interpretation ABG results: ABG ABG pH 7.45 pH Units (7.32-7.45) 09/26/16 01:08 ABG pCO2 75 mmHg (35-45) H* 09/26/16 01:08 ABG pO2 120 mmHg (85-104) H 09/26/16 01:08 ABG O2 Saturation 99 % (95-98) H 09/26/16 01:08 Consult Discharge Plan - Plan [facility]errals: [facility] [Primary Care Provider[facility] - 10/03/16 8:15 am
[2016-09-27] MEDS: traZODone 50 MG TABLET PO SCH (19:55)
[2016-09-27] MEDS: Melatonin 3 MG TABLET PO SCH (19:55)
[2016-09-28] MEDS: Ipratropium/Albuterol Neb 3 ML IH SCH ×5 (04:34→19:58)
[2016-09-28] MEDS: Acetylcysteine 10% 2 ML INHSOL IH SCH ×5 (04:34→19:58)
[2016-09-28] MEDS: *HR* Heparin 5,000 UNIT/ML VIAL SQ SCH ×2 (05:45→17:40)
[2016-09-28 06:58] LABS: BUN/Creatinine Ratio 44 (6-26); Blood Urea Nitrogen 33 mg/dL (8-26); Calcium 7.7 mg/dL (8.6-10.8); Carbon Dioxide 36 mEq/L (19-29); Chloride 97 mEq/L (98-109); Glucose 156 mg/dL (70-99); Osmolality,Calculated 300 (280-300); Potassium 4.1 mEq/L (3.5-4.5); Sodium 140 mEq/L (136-145); eGFR For African Americans > 60 (> 60); eGFR For Non-African Americans > 60 (> 60)
[2016-09-28 07:10] LABS: Basophils % 0.1 %; Hematocrit 36.5 % (37.5-50.1); Hemoglobin 12.3 g/dL (12.9-16.9); Lymphocytes # 1.3 K/mcL (0.6-4.6); Lymphocytes % 14.8 %; Mean Corpuscular HGB Conc 33.7 g/dL (31.6-35.5); Mean Corpuscular Hemoglobin 31.5 pg (28.0-33.3); Mean Corpuscular Volume 93.4 fL (83.0-100.0); Mean Platelet Volume 9.7 fL (9.4-12.4); Monocytes # 0.6 K/mcL (0.0-1.3); Monocytes % 6.5 %; Neutrophils # 6.8 K/mcL (1.6-8.9); Platelet Count 165 K/mcL (140-400); Red Blood Count 3.91 M/mcL (4.19-5.50); Red Cell Distribution Width 11.8 % (11.5-14.5); Segmented Neutrophils % 77.6 %
[2016-09-28] MEDS: Budesonide/Formoterol 160/4.5 MDI IH SCH ×2 (08:03→19:58)
[2016-09-28] MEDS: Baclofen 10 MG TABLET PO SCH ×3 (10:08→20:20)
[2016-09-28] MEDS: Loratadine 10 MG TABLET PO SCH (10:08)
[2016-09-28] MEDS: ARIPiprazole 5 MG TABLET PO SCH (10:08)
[2016-09-28] MEDS: Famotidine 20 MG TABLET PO SCH (10:08)
[2016-09-28] MEDS: Benzonatate 100 MG CAPSULE PO SCH ×3 (10:09→20:21)
[2016-09-28] MEDS: levoFLOXacin 750 MG TABLET PO SCH (10:09)
[2016-09-28] MEDS: methylPREDNISolone 125 MG/2 ML VIAL IVP SCH (10:09)
[2016-09-28] MEDS: Lactobacillus 1 EACH CAP.SPRINK PO SCH (10:09)
[2016-09-28] MEDS: Aspirin Enteric Coated 81 MG Tablet PO SCH (10:09)
--- NOTE | 2016-09-28 15:20 | Internal Med Progress Note ---
Date of Encounter: 09/28/16 Time of Encounter: 12:00 - Assessment and plan (1) Acute exacerbation of chronic obstructive airways disease Current Visit: Yes Status: Acute Assessment and plan: Improving. Tapered on IV steroids as tolerated. Continue bronchodilators and inhaled corticosteroids. Patient is noted to be on home oxygen, continue to wean down FiO2 to baseline as tolerated. Continue to taper down steroids. (2) Community acquired pneumonia Current Visit: Yes Status: Acute Assessment and plan: The patient presented with respiratory symptoms, leukocytosis and tachycardia. Chest x-ray reviewed independently, shows left basilar infiltrates. Continue Levaquin. Follow blood and sputum cultures. Respiratory viral panel negative. Urine Legionella antigen negative. Supplemental oxygen and supportive care. (3) Severe sepsis Current Visit: Yes Status: Acute Assessment and plan: Secondary to pneumonia. Lactic acid noted to be within normal limits. Patient had a mild elevation in troponin, likely related to severe sepsis and is currently normal. Echocardiogram unremarkable. Continue antibiotics. (4) Anxiety Current Visit: Yes Status: Chronic Assessment and plan: Continue home medications (5) Bipolar disease, chronic Current Visit: Yes Status: Chronic Assessment and plan: Continue home medication (6) Depression Current Visit: Yes Status: Chronic Assessment and plan: Resume home medications. Qualifiers: Depression Type: unspecified Qualified Code(s): F32.9 - Major depressive disorder, single episode, unspecified (7) DVT prophylaxis Current Visit: No Status: Acute Assessment and plan: Heparin subcutaneously. - Time Spent With Patient 25 - 35 minutes - Subjective Interval history: Patient is a 60-year-old male admitted for pneumonia. His past medical history is significant for COPD, anxiety, and depression. Patient was seen and examined. SOB has significantly improved. Also significantly improved cough after cough syrup to use. Vitals are stable. We will continue antibiotic, steroid, and bronchodilator. Continue taper down steroids. Most likely discharge home tomorrow. - Constitutional Vitals: Temp Pulse Resp BP Pulse Ox 98.0 F 69 20 124/58 96 09/28/16 07:35 09/28/16 07:35 09/28/16 11:23 09/28/16 07:35 09/28/16 11:23 General appearance: Present: A&O X 3, answers questions appropriately - Head Head exam: Present: atraumatic, normocephalic - Eye Eye exam: Present: PERRL, conjuntiva pink, sclera anicteric Pupils: Present: PERRL - Neck Neck exam general surgery: Present: supple, trachea midline. Absent: lymphadenopathy - Respiratory Respiratory exam: Present: CTAB. Absent: accessory muscle use, rales, rhonchi, wheezes - Cardiovascular Cardiovascular exam: Present: RRR, +S1, +S2. Absent: diastolic murmur, gallop, rubs, systolic murmur - GI/Abdominal GI/Abdominal exam: Present: normal bowel sounds, soft, no peritoneal signs. Absent: distended, tenderness - Extremities Exam Extremities exam: Present: warm, radial pulses palpable and symetrical. Absent : calf tenderness, cyanotic, pedal edema - Neurological Exam Neurological exam: Present: CN II-XII intact, oriented X3, no focal deficits. Absent: pronater drift, facial droop, speech deficit - Skin Skin exam: Present: dry, intact Internal Medicine: Result - Labs CBC & Chem 7: 09/28/16 06:12 09/28/16 06:12 Labs: Short CBC 09/28/16 Range/Units 06:12 WBC 8.7 (4.3-11.1) K/mcL Hgb 12.3 L (12.9-16.9) g/dL Hct 36.5 L (37.5-50.1) % Plt Count 165 (140-400) K/mcL Neutrophils # 6.8 (1.6-8.9) K/mcL BMP 09/28/16 06:12 Sodium 140 Potassium 4.1 Chloride 97 L Carbon Dioxide 36 H BUN 33 H Creatinine 0.75 Glucose 156 H Calcium 7.7 L - ABG Interpretation ABG results: ABG ABG pH 7.45 pH Units (7.32-7.45) 09/26/16 01:08 ABG pCO2 75 mmHg (35-45) H* 09/26/16 01:08 ABG pO2 120 mmHg (85-104) H 09/26/16 01:08 ABG O2 Saturation 99 % (95-98) H 09/26/16 01:08 Consult Discharge Plan - Plan [facility]errals: [facility] [Primary Care Provider[facility] - 10/03/16 8:15 am
[2016-09-28] MEDS: traZODone 50 MG TABLET PO SCH (20:20)
[2016-09-28] MEDS: Melatonin 3 MG TABLET PO SCH (20:21)
[2016-09-29] MEDS: Ipratropium/Albuterol Neb 3 ML IH SCH ×4 (00:16→09:51)
[2016-09-29] MEDS: Acetylcysteine 10% 2 ML INHSOL IH SCH ×4 (00:16→09:52)
[2016-09-29] MEDS: *HR* Heparin 5,000 UNIT/ML VIAL SQ SCH (06:11)
[2016-09-29 07:39] VITALS: BP 124/76
[2016-09-29] MEDS ORDERED: predniSONE 20 MG TABLET PO SCH (09:00)
[2016-09-29] MEDS: Budesonide/Formoterol 160/4.5 MDI IH SCH (09:51)
[2016-09-29] MEDS: levoFLOXacin 750 MG TABLET PO SCH (09:58)
[2016-09-29] MEDS: ARIPiprazole 5 MG TABLET PO SCH (09:58)
[2016-09-29] MEDS: Lactobacillus 1 EACH CAP.SPRINK PO SCH (09:58)
[2016-09-29] MEDS: Baclofen 10 MG TABLET PO SCH (09:58)
[2016-09-29] MEDS: Famotidine 20 MG TABLET PO SCH (09:58)
[2016-09-29] MEDS: Benzonatate 100 MG CAPSULE PO SCH (09:58)
[2016-09-29] MEDS: Aspirin Enteric Coated 81 MG Tablet PO SCH (09:58)
[2016-09-29] MEDS: Loratadine 10 MG TABLET PO SCH (09:59)
--- NOTE | 2016-09-29 10:06 | Discharge Summary ---
Date of Encounter: 09/29/16 Time of Encounter: 09:00 - Discharge Diagnosis (1) Acute exacerbation of chronic obstructive airways disease Priority: Primary Status: Acute (2) Community acquired pneumonia Priority: Primary Status: Acute (3) Severe sepsis Priority: Secondary Status: Acute (4) Anxiety Priority: Secondary Status: Chronic (5) Bipolar disease, chronic Priority: Secondary Status: Chronic (6) Depression Priority: Secondary Status: Chronic Qualifiers: Depression Type: unspecified Qualified Code(s): F32.9 - Major depressive disorder, single episode, unspecified (7) DVT prophylaxis Priority: Secondary Status: Acute - Discharge Medications Prescriptions: GuaiFENesin/Dextromethorphan [Robitussin/Dm] 10 ml PO Q6HR PRN 14 Days PRN Reason: Cough Levofloxacin 750 mg PO DAILY #5 tablet Metoprolol [Lopressor] 25 mg PO BID #60 tablet PredniSONE 40 mg PO DAILY #14 tablet Home Medications: Acetaminophen [Tylenol] 650 mg PO Q6HR 07/06/16 [History] Albuterol Neb [Proventil Neb] 2.5 mg IH QID PRN 07/06/16 [History] Aripiprazole [Abilify] 15 mg PO DAILY 07/06/16 [History] Aspirin [Lo-Dose Aspirin EC] 81 mg PO DAILY 07/06/16 [History] Baclofen [Lioresal] 10 mg PO TID 07/06/16 [History] Budesonide/Formoterol 160/4.5 [Symbicort 160/4.5] 2 puff IH BID 07/06/16 [ History] Dicyclomine [Bentyl] 10 mg PO TID 07/06/16 [History] Docusate [Colace] 200 mg PO HS 07/06/16 [History] Etodolac 400 mg PO BID 07/06/16 [History] Hydroxyzine HCl 50 mg PO BID 07/06/16 [History] Lactobacillus Acidophilus [Acidophilus] 1 cap PO DAILY 07/06/16 [History] Melatonin [Melatin] 9 mg PO HS 07/06/16 [History] Oxybutynin Chloride [Ditropan Xl] 5 mg PO HS 07/06/16 [History] Paroxetine [Paxil] 30 mg PO DAILY 07/06/16 [History] Ranitidine HCl [Acid [employer]] 150 mg PO BID 07/06/16 [History] Tiotropium [Spiriva] 18 mcg IH DAILY 07/06/16 [History] TraZODone 300 mg PO HS 07/06/16 [History] Albuterol Sulfate [Proair Hfa] 2 puff IH Q4H PRN #1 hfa.aer.ad 07/07/16 [Rx] Benzonatate [Tessalon] 100 mg PO TID 09/22/16 [History] Loratadine [Allergy Relief] 10 mg PO DAILY 09/22/16 [History] Nicotine Polacrilex [Nicotine Lozenge] 4 mg BC Q2H PRN 09/22/16 [History] Sildenafil Citrate [Viagra] 50 mg PO AD PRN 09/22/16 [History] GuaiFENesin/Dextromethorphan [Robitussin/Dm] 10 ml PO Q6HR PRN 14 Days 09/29/16 [Rx] Levofloxacin 750 mg PO DAILY #5 tablet 09/29/16 [Rx] Metoprolol [Lopressor] 25 mg PO BID #60 tablet 09/29/16 [Rx] PredniSONE 40 mg PO DAILY #14 tablet 09/29/16 [Rx] Allergies/Adverse Reactions: Allergies haloperidol [From Haldol] Adverse Reaction (Verified 09/01/16 04:17) Muscle Pain [place] Adverse Reaction (Verified 09/01/16 04:17) Weakness - Notes to Outpatient Provider 1. Patient's propranolol was stopped and changed to metoprolol, because of his COPD. Date of admission: 09/22/16 19:28 Primary care physician: PCP [facility] Consults: 09/23/16 19:42 Consult to Behavioral Assistant [CONS] Routine Reason for Consult: drug abuse resources Discharging clinician: Dustin Davies Anticipated date of discharge: 09/29/16 - Patient Status Disposition: Home, Self-Care Condition: Good Functional capacity at discharge: independent ambulation Overall status at discharge: patient is back to baseline - Discharge Instructions Follow Up With: [facility],PCP [Primary Care Provider] - 10/03/16 8:15 am - Diet and Activity Activity: increase activity as tolerated Diet: low fat, low cholesterol, low salt diet Interval History: Mr. Sosa is a 60 year old male patient with history of COPD, chronic respiratory failure on home oxygen 2 L/m presented to the ER complaining of shortness of breath, fever and chills. Symptoms have been going on for about 2 days. Also has been having cough with productive sputum. He had some mild chest pain prior to presentation. It resolved spontaneously. He also has been having palpitations. Hospital course: Mr. Sosa is a 60 year old male admitted for COPD exacerbation and community- acquired pneumonia. He was treated with antibiotics, steroid, and bronchodilator. After treatment, his condition has improved. All medications have changed to by mouth. Will discharge patient home with by mouth medication. Patient had oxygen at home already. I saw and examined the patient today. He is awake alert, oriented 3. In no respiratory distress. Has mild cough. No fever. Vitals are stable. Oxygen saturation 95% on 2 L [place] oxygen, which is about his baseline. Patient is stable to discharge home. Smoking cessation education done. Time spent discussing smoking cessation with patient: 3 to 10 minutes - Time Spent with Patient Total time spent providing and/or coordinating discharge services: 40 minutes Greater than 30 minutes - Constitutional Vitals: Temp Pulse Resp BP Pulse Ox 97.7 F 73 16 124/76 95 09/29/16 07:37 09/29/16 07:37 09/29/16 09:52 09/29/16 07:37 09/29/16 09:52 General appearance: Present: A&O X 3, answers questions appropriately - Head Head exam: Present: atraumatic, normocephalic - Eye Eye exam: Present: PERRL, conjuntiva pink, sclera anicteric Pupils: Present: PERRL - Neck Neck exam general surgery: Present: supple, trachea midline. Absent: lymphadenopathy - Respiratory Respiratory exam: Present: CTAB. Absent: accessory muscle use, rales, rhonchi, wheezes - Cardiovascular Cardiovascular exam: Present: RRR, +S1, +S2. Absent: diastolic murmur, gallop, rubs, systolic murmur - GI/Abdominal GI/Abdominal exam: Present: normal bowel sounds, soft, no peritoneal signs. Absent: distended, tenderness - Extremities Exam Extremities exam: Present: warm, radial pulses palpable and symetrical. Absent : calf tenderness, cyanotic, pedal edema - Neurological Exam Neurological exam: Present: CN II-XII intact, oriented X3, no focal deficits. Absent: pronater drift, facial droop, speech deficit - Skin Skin exam: Present: dry, intact
== END 2016-09-29 13:15 | disposition home or self-care (01) | DRG 720 ==
LOC: 2NENU 14:53 → EMEROO 14:53 → 2NENU 18:05 → SUATTDRO 19:28
PROVIDERS: ADMIT Internal Medicine; ATTEND Internal Medicine

== ENCOUNTER 2016-11-22 16:45 | Observation (INO) ==
[2016-11-22] MEDS ORDERED: Ipratropium/Albuterol Neb 3 ML IH ONE (16:48)
[2016-11-22] MEDS ORDERED: predniSONE 20 MG TABLET PO ONE (16:49)
--- NOTE | 2016-11-22 16:55 | Emergency Department Note ---
Disposition Clinical Impression: Acute exacerbation of chronic obstructive airways disease Disposition: Still a Patient [facility]errals: [facility] [Primary Care Provider[facility] - Forms: ED Satisfaction Letter General Adult HPI - General Chief complaint: ED Shortness of Breath/Dyspnea Stated complaint: SOB Time Seen by Provider: 11/22/16 16:47 Nursing Notes Reviewed: Yes Vital Signs Reviewed: Yes - Related Data Home Medications Medication Instructions Recorded Confirmed Acetaminophen [Tylenol] 650 mg PO Q6HR 07/06/16 09/22/16 Albuterol Neb [Proventil Neb] 2.5 mg IH QID PRN 07/06/16 09/22/16 Aripiprazole [Abilify] 15 mg PO DAILY 07/06/16 09/22/16 Aspirin [Lo-Dose Aspirin EC] 81 mg PO DAILY 07/06/16 09/22/16 Baclofen [Lioresal] 10 mg PO TID 07/06/16 09/22/16 Budesonide/Formoterol 160/4.5 2 puff IH BID 07/06/16 09/22/16 [Symbicort 160/4.5] Dicyclomine [Bentyl] 10 mg PO TID 07/06/16 09/22/16 Docusate [Colace] 200 mg PO HS 07/06/16 09/22/16 Etodolac 400 mg PO BID 07/06/16 09/22/16 Hydroxyzine HCl 50 mg PO BID 07/06/16 09/22/16 Lactobacillus Acidophilus 1 cap PO DAILY 07/06/16 09/22/16 [Acidophilus] Melatonin [Melatin] 9 mg PO HS 07/06/16 09/22/16 Oxybutynin Chloride [Ditropan Xl] 5 mg PO HS 07/06/16 09/22/16 Paroxetine [Paxil] 30 mg PO DAILY 07/06/16 09/22/16 Ranitidine HCl [Acid Division Controller] 150 mg PO BID 07/06/16 09/22/16 Tiotropium [Spiriva] 18 mcg IH DAILY 07/06/16 09/22/16 TraZODone 300 mg PO HS 07/06/16 09/22/16 Benzonatate [Tessalon] 100 mg PO TID 09/22/16 09/22/16 Loratadine [Allergy Relief] 10 mg PO DAILY 09/22/16 09/22/16 Nicotine Polacrilex [Nicotine 4 mg BC Q2H PRN 09/22/16 09/22/16 Lozenge] Sildenafil Citrate [Viagra] 50 mg PO AD PRN 09/22/16 09/22/16 Previous Rx's Medication Instructions Recorded Albuterol Sulfate [Proair Hfa] 2 puff IH Q4H PRN #1 hfa.aer.ad 07/07/16 GuaiFENesin/Dextromethorphan 10 ml PO Q6HR PRN 14 Days 09/29/16 [Robitussin/Dm] Levofloxacin 750 mg PO DAILY #5 tablet 09/29/16 Metoprolol [Lopressor] 25 mg PO BID #60 tablet 09/29/16 PredniSONE 40 mg PO DAILY #14 tablet 09/29/16 Azithromycin [Azithromycin 6-Tab 250 mg PO PER PKG DI #6 tab 11/02/16 Pack] PredniSONE 60 mg PO DAILY #21 tablet 11/02/16 Allergies Allergy/AdvReac Type Severity Reaction Status Date / Time haloperidol [From Haldol] AdvReac Muscle Pain Verified 09/01/16 04:17 [place] AdvReac Weakness Verified 09/01/16 04:17 Past Medical History - Past Medical History Medical history: Reports: COPD Surgical history: Reports: cholecystectomy Psychiatric history: Reports: anxiety, bipolar, depression - Social History Smoking Status: Former smoker Smokeless Tobacco Status: No Alcohol use: Reports: none Drug use: Reports: other Course Vital Signs Temperature 98.9 F 11/22/16 17:05 Pulse Rate 96 11/22/16 17:05 Respiratory Rate 18 11/22/16 17:05 Blood Pressure 122/78 11/22/16 17:05 O2 Sat by Pulse Oximetry 100 11/22/16 17:05 Temperature 98.9 F 11/22/16 17:05 Pulse Rate 96 11/22/16 17:05 Respiratory Rate 16 11/22/16 17:18 Blood Pressure 122/78 11/22/16 17:05 O2 Sat by Pulse Oximetry 98 11/22/16 17:18 Oxygen Delivery Oxygen Delivery Nasal Cannula Medical Decision Making - MDM Narrative Medical decision making narrative: I examined this patient and my medical decision-making was reviewed with the [employer]/PA/Advanced Practice Nurse/Resident Physician. I agree with the documented findings, disposition and treatment plan as described except to the extent set forth below. Patient was seen on arrival with Dr. Velarde in EMS. I agree with his evaluation and management plan, surprise given the patient's stay. Patient comes in today as he is having dyspnea COPD exacerbation. He apparently injects crack cocaine which seems unusual. He not on steroids at home he is on oxygen at 2 L does not have a breathing treatment at this time to treatment by squad said he felt better but he still having wheezing. He has been admitted before. When a chest x-ray EKG and will reassess. He is in agreement this plan. 1700 hrs.: Patient's getting breathing treatments and chest x-ray and doing better. But he says that he feels like he could be suicidal he has had a history of psychiatric illness. He is most likely homeless. He has very poor hygiene. He smells like urine. Return to move him over to the B pod so that he can have a sitter. Order psychiatric labs and then once those are back and he is reassessed can determine if he needs abided by 1-A. 1930 hrs.: Patient's labs are back. We will sign him out to the evening your doctor Dr. Vivar for further management and disposition will need evaluation by 1A. impression #1 is COPD exacerbation. #2 is medical noncompliance. #3. His cocaine abuse. #4 is suicidal ideations. - Lab Data Result diagrams: 11/22/16 17:44 11/22/16 17:44 Lab Results 11/22/16 11/22/16 Range/Units 17:44 17:44 WBC 5.9 (4.3-11.1) K/mcL RBC 4.21 (4.19-5.50) M/mcL Hgb 12.9 (12.9-16.9) g/dL Hct 37.1 L (37.5-50.1) % MCV 88.1 (83.0-100.0) fL MCH 30.6 (28.0-33.3) pg MCHC 34.8 (31.6-35.5) g/dL RDW 13.2 (11.5-14.5) % Plt Count 134 L (140-400) K/mcL MPV 9.7 (9.4-12.4) fL Immature Gran % 0.3 (0-4) % Seg Neutrophils % 60.9 % Lymphocytes % 25.0 % Monocytes % 11.1 % Eosinophils % 2.5 % Basophils % 0.2 % Neutrophils # 3.6 (1.6-8.9) K/mcL Lymphocytes # 1.5 (0.6-4.6) K/mcL Monocytes # 0.7 (0.0-1.3) K/mcL Eosinophils # 0.2 (0.0-0.6) K/mcL Basophils # 0.0 (0.0-0.2) K/mcL Reactive Lymphocytes Present A (Not Present) Platelet Estimate Slight Decrease L (Normal) Sodium 139 (136-145) mEq/L Potassium 2.7 L (3.5-4.5) mEq/L Chloride 94 L (98-109) mEq/L Carbon Dioxide 36 H (19-29) mEq/L BUN 7 L (8-26) mg/dL Creatinine 0.66 L (0.72-1.25) mg/dL Est GFR ( Amer) > 60 (> 60) Est GFR (Non-Af Amer) > 60 (> 60) BUN/Creatinine Ratio 11 (6-26) Glucose 109 H (70-99) mg/dL Calculated Osmolality 287 (280-300) Calcium 8.8 (8.6-10.8) mg/dL Total Bilirubin 1.3 H (0.2-1.2) mg/dL Direct Bilirubin 0.6 H (0.0-0.5) mg/dL Indirect Bilirubin 0.7 (0.0-1.2) mg/dL AST 38 H (5-34) Units/L ALT 40 (0-55) Units/L Alkaline Phosphatase 152 H (38-126) Units/L Serum Total Protein 6.5 (6.0-8.3) g/dL Albumin 3.1 L (3.5-5.0) g/dL Globulin 3.4 (2.4-3.5) g/dL Albumin/Globulin Ratio 0.9 L (1.1-2.2) Salicylates < 5.0 L (15-30) mg/dL Acetaminophen < 1.0 L (10-30) mcg/mL Ethyl Alcohol < 10 (0-10) mg/dL
--- NOTE | 2016-11-22 17:01 | Emergency Department Note ---
Disposition Clinical Impression: Acute exacerbation of chronic obstructive airways disease Disposition: Still a Patient [facility]errals: [facility] [Primary Care Provider[facility] - Forms: ED Satisfaction Letter Time of Disposition: 19:21 SOB HPI - General Chief Complaint: ED Shortness of Breath/Dyspnea Stated Complaint: SOB Time Seen by Provider: 11/22/16 16:47 Source: patient, EMS Mode of arrival: EMS Limitations: no limitations Nursing Notes Reviewed: Yes Vital Signs Reviewed: Yes - History of Present Illness Patient presents to the ED the chief complaint of shortness breath. Patient has a history of oxygen-dependent COPD and is on 2.5 L at all times at home. States that he has been sick over the last few weeks. States that it feels like his COPD is flaring up. He is not on steroids daily. He does readily volunteer that he is an IV drug user and index "crack cocaine" states his last use was yesterday. States that he has some chest discomfort from having trouble breathing, but denies chest pain. No fever or chills. No abdominal pain, nausea or vomiting. No other changes. He received one breathing treatment in route via EMS and states that that was helping him breathe a little easier. No history DVT or PE. No history of malignancy. - Related Data Home Medications Medication Instructions Recorded Confirmed Acetaminophen [Tylenol] 650 mg PO Q6HR 07/06/16 09/22/16 Albuterol Neb [Proventil Neb] 2.5 mg IH QID PRN 07/06/16 09/22/16 Aripiprazole [Abilify] 15 mg PO DAILY 07/06/16 09/22/16 Aspirin [Lo-Dose Aspirin EC] 81 mg PO DAILY 07/06/16 09/22/16 Baclofen [Lioresal] 10 mg PO TID 07/06/16 09/22/16 Budesonide/Formoterol 160/4.5 2 puff IH BID 07/06/16 09/22/16 [Symbicort 160/4.5] Dicyclomine [Bentyl] 10 mg PO TID 07/06/16 09/22/16 Docusate [Colace] 200 mg PO HS 07/06/16 09/22/16 Etodolac 400 mg PO BID 07/06/16 09/22/16 Hydroxyzine HCl 50 mg PO BID 07/06/16 09/22/16 Lactobacillus Acidophilus 1 cap PO DAILY 07/06/16 09/22/16 [Acidophilus] Melatonin [Melatin] 9 mg PO HS 07/06/16 09/22/16 Oxybutynin Chloride [Ditropan Xl] 5 mg PO HS 07/06/16 09/22/16 Paroxetine [Paxil] 30 mg PO DAILY 07/06/16 09/22/16 Ranitidine HCl [Acid [employer] Counselor] 150 mg PO BID 07/06/16 09/22/16 Tiotropium [Spiriva] 18 mcg IH DAILY 07/06/16 09/22/16 TraZODone 300 mg PO HS 07/06/16 09/22/16 Benzonatate [Tessalon] 100 mg PO TID 09/22/16 09/22/16 Loratadine [Allergy Relief] 10 mg PO DAILY 09/22/16 09/22/16 Nicotine Polacrilex [Nicotine 4 mg BC Q2H PRN 09/22/16 09/22/16 Lozenge] Sildenafil Citrate [Viagra] 50 mg PO AD PRN 09/22/16 09/22/16 Previous Rx's Medication Instructions Recorded Albuterol Sulfate [Proair Hfa] 2 puff IH Q4H PRN #1 hfa.aer.ad 07/07/16 GuaiFENesin/Dextromethorphan 10 ml PO Q6HR PRN 14 Days 09/29/16 [Robitussin/Dm] Levofloxacin 750 mg PO DAILY #5 tablet 09/29/16 Metoprolol [Lopressor] 25 mg PO BID #60 tablet 09/29/16 PredniSONE 40 mg PO DAILY #14 tablet 09/29/16 Azithromycin [Azithromycin 6-Tab 250 mg PO PER PKG DI #6 tab 11/02/16 Pack] PredniSONE 60 mg PO DAILY #21 tablet 11/02/16 Allergies Allergy/AdvReac Type Severity Reaction Status Date / Time haloperidol [From Haldol] AdvReac Muscle Pain Verified 09/01/16 04:17 [place] AdvReac Weakness Verified 09/01/16 04:17 All systems ED: reviewed and negative except as stated. Cardiovascular: Reports: chest pain, dyspnea on exertion Respiratory: Reports: cough, dyspnea, wheezes, sputum production Past Medical History - Past Medical History Attestation: Yes The following information was validated with the patient. Source: patient Medical history: Reports: COPD Surgical history: Reports: cholecystectomy Psychiatric history: Reports: anxiety, bipolar, depression - Social History Smoking Status: Former smoker Smokeless Tobacco Status: No Alcohol use: Reports: none Drug use: Reports: other Physical Exam - General Limitations: no limitations General appearance: alert, in distress (Respiratory) - Head Head exam: atraumatic, normocephalic, normal inspection - Eye Eye exam: Present: normal appearance, PERRL, EOMI - ENT ENT exam: normal exam, normal oropharynx, mucous membranes moist - Neck Neck exam: Present: normal inspection, full ROM, trachea midline - Chest Chest inspection: Present: normal inspection, symmetric chest wall rise - Respiratory Respiratory exam: Present: respiratory distress (Mild with dyspnea), wheezes ( Upper lung temple, very poor air entry inferiorly), accessory muscle use. Absent: normal lung sounds bilaterally - Cardiovascular Cardiovascular exam: Present: tachycardia, normal heart sounds - Abdominal Exam Abdominal exam: Present: soft, Non-Tender. Absent: tenderness, distention, guarding, rebound, rigidity - Extremities Exam Extremities exam: Present: normal inspection, full ROM. Absent: tenderness, pedal edema - Neurological Exam Neurological exam: Present: alert, oriented X3 - Psychiatric Psychiatric exam: Present: normal affect, normal mood - Skin Skin exam: Present: warm, dry, intact, normal color Course Course Narrative: 60-year-old male presenting with a COPD exacerbation. steroids reevaluate. Disposition pending. - Reevaluation(s) Reevaluation #1: Recent potassium is 2.7. We will replace. Vision also shortly after arriving stated that he felt like killing himself. We transferred him over to an observed bed for further treatment. Once his exacerbation is under control. We will call [facility] Time: 18:20 Reevaluation #2: Patient responded well to DuoNeb treatments. He has been cleared for 1 and a evaluation after his urinalysis. He will be signed out to the nighttime team for further management and follow-up. Vital Signs Temperature 98.9 F 11/22/16 17:05 Pulse Rate 96 11/22/16 17:05 Respiratory Rate 18 11/22/16 17:05 Blood Pressure 122/78 11/22/16 17:05 O2 Sat by Pulse Oximetry 100 11/22/16 17:05 Temperature 98.9 F 11/22/16 17:05 Pulse Rate 96 11/22/16 17:05 Respiratory Rate 16 11/22/16 17:18 Blood Pressure 122/78 11/22/16 17:05 O2 Sat by Pulse Oximetry 98 11/22/16 17:18 Oxygen Delivery Oxygen Delivery Nasal Cannula Shortness of Breath/Dyspnea - Lab Data Result diagrams: 11/22/16 17:44 11/22/16 17:44 Lab Results 11/22/16 11/22/16 Range/Units 17:44 17:44 WBC 5.9 (4.3-11.1) K/mcL RBC 4.21 (4.19-5.50) M/mcL Hgb 12.9 (12.9-16.9) g/dL Hct 37.1 L (37.5-50.1) % MCV 88.1 (83.0-100.0) fL MCH 30.6 (28.0-33.3) pg MCHC 34.8 (31.6-35.5) g/dL RDW 13.2 (11.5-14.5) % Plt Count 134 L (140-400) K/mcL MPV 9.7 (9.4-12.4) fL Immature Gran % 0.3 (0-4) % Seg Neutrophils % 60.9 % Lymphocytes % 25.0 % Monocytes % 11.1 % Eosinophils % 2.5 % Basophils % 0.2 % Neutrophils # 3.6 (1.6-8.9) K/mcL Lymphocytes # 1.5 (0.6-4.6) K/mcL Monocytes # 0.7 (0.0-1.3) K/mcL Eosinophils # 0.2 (0.0-0.6) K/mcL Basophils # 0.0 (0.0-0.2) K/mcL Reactive Lymphocytes Present A (Not Present) Platelet Estimate Slight Decrease L (Normal) Sodium 139 (136-145) mEq/L Potassium 2.7 L (3.5-4.5) mEq/L Chloride 94 L (98-109) mEq/L Carbon Dioxide 36 H (19-29) mEq/L BUN 7 L (8-26) mg/dL Creatinine 0.66 L (0.72-1.25) mg/dL Est GFR ( Amer) > 60 (> 60) Est GFR (Non-Af Amer) > 60 (> 60) BUN/Creatinine Ratio 11 (6-26) Glucose 109 H (70-99) mg/dL Calculated Osmolality 287 (280-300) Calcium 8.8 (8.6-10.8) mg/dL Total Bilirubin 1.3 H (0.2-1.2) mg/dL Direct Bilirubin 0.6 H (0.0-0.5) mg/dL Indirect Bilirubin 0.7 (0.0-1.2) mg/dL AST 38 H (5-34) Units/L ALT 40 (0-55) Units/L Alkaline Phosphatase 152 H (38-126) Units/L Serum Total Protein 6.5 (6.0-8.3) g/dL Albumin 3.1 L (3.5-5.0) g/dL Globulin 3.4 (2.4-3.5) g/dL Albumin/Globulin Ratio 0.9 L (1.1-2.2) Salicylates < 5.0 L (15-30) mg/dL Acetaminophen < 1.0 L (10-30) mcg/mL Ethyl Alcohol < 10 (0-10) mg/dL S.B.A.R. - S.B.A.R. Situation: Demographics, MOA Background: Presenting Complaint, Relevant PMH, Meds, & Allergies Assessment: Vital Signs, Course and respsone to treatment, Exam Concerns, Patient/Family Expectation, Pertinant Lab Results, Outstanding Labs Recommendation: Recommendation based on pending studies, treatments, or consults S.B.A.R. Report Given to: Dr. Vivar SDesmondBDesmondADonnell Repor Time: 19:21
[2016-11-22 17:51] LABS: Basophils % 0.2 %; Eosinophils # 0.2 K/mcL (0.0-0.6); Eosinophils % 2.5 %; Hematocrit 37.1 % (37.5-50.1); Hemoglobin 12.9 g/dL (12.9-16.9); Immature Granulocytes % 0.3 % (0-4); Lymphocytes # 1.5 K/mcL (0.6-4.6); Mean Corpuscular HGB Conc 34.8 g/dL (31.6-35.5); Mean Corpuscular Hemoglobin 30.6 pg (28.0-33.3); Mean Corpuscular Volume 88.1 fL (83.0-100.0); Mean Platelet Volume 9.7 fL (9.4-12.4); Monocytes # 0.7 K/mcL (0.0-1.3); Monocytes % 11.1 %; Neutrophils # 3.6 K/mcL (1.6-8.9); Platelet Count 134 K/mcL (140-400); Red Blood Count 4.21 M/mcL (4.19-5.50); Red Cell Distribution Width 13.2 % (11.5-14.5); Segmented Neutrophils % 60.9 %
[2016-11-22 18:07] LABS: Alanine Aminotransferase 40 Units/L (0-55); Albumin 3.1 g/dL (3.5-5.0); Albumin/Globulin Ratio 0.9 (1.1-2.2); Alkaline Phosphatase 152 Units/L (38-126); Aspartate Amino Transferase 38 Units/L (5-34); BUN/Creatinine Ratio 11 (6-26); Bilirubin,Direct 0.6 mg/dL (0.0-0.5); Bilirubin,Indirect 0.7 mg/dL (0.0-1.2); Bilirubin,Total 1.3 mg/dL (0.2-1.2); Blood Urea Nitrogen 7 mg/dL (8-26); Calcium 8.8 mg/dL (8.6-10.8); Carbon Dioxide 36 mEq/L (19-29); Chloride 94 mEq/L (98-109); Globulin 3.4 g/dL (2.4-3.5); Glucose 109 mg/dL (70-99); Osmolality,Calculated 287 (280-300); Potassium 2.7 mEq/L (3.5-4.5); Sodium 139 mEq/L (136-145); Total Protein 6.5 g/dL (6.0-8.3); eGFR For African Americans > 60 (> 60); eGFR For Non-African Americans > 60 (> 60)
[2016-11-22 18:09] LABS: Salicylate < 5.0 mg/dL (15-30)
[2016-11-22 18:10] LABS: Acetaminophen < 1.0 mcg/mL (10-30); Ethanol < 10 mg/dL (0-10)
[2016-11-22 18:12] LABS: Platelet Estimate Slight Decrease (Normal); Reactive Lymphocytes Present (Not Present)
[2016-11-22 19:38] LABS: Amphetamine Screen,Urine Negative ng/mL (Cutoff=1000); Barbiturate Screen,Urine Negative ng/mL (Cutoff=200); Benzodiazepines Screen,Urine Negative ng/mL (Cutoff=200); Cannabinoid Screen,Urine Negative ng/mL (Cutoff = 50); Cocaine Screen,Urine Positive ng/mL (Cutoff= 300); Opiate Screen,Urine Negative ng/mL (Cutoff=300); Phencyclidine Screen,Urine Negative ng/mL (Cutoff=25)
--- NOTE | 2016-11-22 22:30 | Emergency Department Note ---
Disposition Clinical Impression: Acute exacerbation of chronic obstructive airways disease Disposition: Home, Self-Care Condition: Good Instructions: Chronic Obstructive Pulmonary Disease (ED) Reasons to Return/Additional Instructions: Fever, chest pain, worsening symptoms. Follow up with her primary care physician in one to 2 days for reevaluation Prescriptions: Levofloxacin [Levaquin] 750 mg PO DAILY #10 tablet Potassium Chloride [K-Tab ER] 20 meq PO DAILY #5 tablet.er PredniSONE 60 mg PO DAILY #21 tablet [facility] Care Provider[facility] - Forms: ED Satisfaction Letter SOB HPI - General Chief Complaint: ED Shortness of Breath/Dyspnea Stated Complaint: SOB/SI Time Seen by Provider: 11/22/16 16:47 Source: patient, EMS Mode of arrival: EMS Limitations: no limitations - Related Data Home Medications Medication Instructions Recorded Confirmed Acetaminophen [Tylenol] 650 mg PO Q6HR PRN 07/06/16 11/22/16 Albuterol Neb [Proventil Neb] 2.5 mg IH QID PRN 07/06/16 11/22/16 Aripiprazole [Abilify] 15 mg PO DAILY 07/06/16 11/22/16 Aspirin [Lo-Dose Aspirin EC] 81 mg PO DAILY 07/06/16 11/22/16 Baclofen [Lioresal] 10 mg PO TID PRN 07/06/16 11/22/16 Budesonide/Formoterol 160/4.5 2 puff IH BID 07/06/16 11/22/16 [Symbicort 160/4.5] Dicyclomine [Bentyl] 10 mg PO TID 07/06/16 11/22/16 Docusate [Colace] 200 mg PO HS 07/06/16 11/22/16 Etodolac 400 mg PO BID PRN 07/06/16 11/22/16 Hydroxyzine HCl 50 mg PO BID 07/06/16 11/22/16 Lactobacillus Acidophilus 1 cap PO DAILY 07/06/16 11/22/16 [Acidophilus] Melatonin [Melatin] 9 mg PO HS 07/06/16 11/22/16 Oxybutynin Chloride [Ditropan Xl] 5 mg PO HS 07/06/16 11/22/16 Paroxetine [Paxil] 30 mg PO DAILY 07/06/16 11/22/16 Ranitidine HCl [Acid Vamp Maker] 150 mg PO BID 07/06/16 11/22/16 Tiotropium [Spiriva] 18 mcg IH DAILY 07/06/16 11/22/16 TraZODone 300 mg PO HS 07/06/16 11/22/16 Loratadine [Allergy Relief] 10 mg PO DAILY 09/22/16 11/22/16 Nicotine Polacrilex [Nicotine 4 mg BC Q2H PRN 09/22/16 11/22/16 Lozenge] Sildenafil Citrate [Viagra] 50 mg PO AD PRN 09/22/16 11/22/16 Propranolol [Inderal] 10 mg PO BID 11/22/16 11/22/16 Previous Rx's Medication Instructions Recorded Albuterol Sulfate [Proair Hfa] 2 puff IH Q4H PRN #1 hfa.aer.ad 07/07/16 Levofloxacin [Levaquin] 750 mg PO DAILY #10 tablet 11/22/16 Potassium Chloride [K-Tab ER] 20 meq PO DAILY #5 tablet.er 11/22/16 PredniSONE 60 mg PO DAILY #21 tablet 11/22/16 Allergies Allergy/AdvReac Type Severity Reaction Status Date / Time haloperidol [From Haldol] AdvReac Muscle Pain Verified 09/01/16 04:17 [place] AdvReac Weakness Verified 09/01/16 04:17 Cardiovascular: Reports: chest pain, dyspnea on exertion Respiratory: Reports: cough, dyspnea, wheezes, sputum production Past Medical History - Past Medical History Medical history: Reports: COPD Surgical history: Reports: cholecystectomy Psychiatric history: Reports: anxiety, bipolar, depression - Social History Smoking Status: Former smoker Smokeless Tobacco Status: No Alcohol use: Reports: none Drug use: Reports: other Physical Exam - General Limitations: no limitations General appearance: alert, in distress (Respiratory) Course Vital Signs Temperature 98.9 F 11/22/16 17:05 Pulse Rate 96 11/22/16 17:05 Respiratory Rate 18 11/22/16 17:05 Blood Pressure 122/78 11/22/16 17:05 O2 Sat by Pulse Oximetry 100 11/22/16 17:05 Temperature 98.9 F 11/22/16 17:05 Pulse Rate 96 11/22/16 17:05 Respiratory Rate 16 11/22/16 17:18 Blood Pressure 122/78 11/22/16 17:05 O2 Sat by Pulse Oximetry 98 11/22/16 17:18 Oxygen Delivery Oxygen Delivery Nasal Cannula Shortness of Breath/Dyspnea - MDM Narrative Medical decision making narrative: Patient is under the care of the [facility]. See follow-up on [facility] evaluation if he needs to be transferred. - Lab Data Result diagrams: 11/22/16 17:44 11/22/16 17:44 Lab Results 11/22/16 11/22/16 11/22/16 Range/Units 17:44 17:44 18:58 WBC 5.9 (4.3-11.1) K/mcL RBC 4.21 (4.19-5.50) M/mcL Hgb 12.9 (12.9-16.9) g/dL Hct 37.1 L (37.5-50.1) % MCV 88.1 (83.0-100.0) fL MCH 30.6 (28.0-33.3) pg MCHC 34.8 (31.6-35.5) g/dL RDW 13.2 (11.5-14.5) % Plt Count 134 L (140-400) K/mcL MPV 9.7 (9.4-12.4) fL Immature Gran % 0.3 (0-4) % Seg Neutrophils % 60.9 % Lymphocytes % 25.0 % Monocytes % 11.1 % Eosinophils % 2.5 % Basophils % 0.2 % Neutrophils # 3.6 (1.6-8.9) K/mcL Lymphocytes # 1.5 (0.6-4.6) K/mcL Monocytes # 0.7 (0.0-1.3) K/mcL Eosinophils # 0.2 (0.0-0.6) K/mcL Basophils # 0.0 (0.0-0.2) K/mcL Reactive Lymphocytes Present A (Not Present) Platelet Estimate Slight Decrease L (Normal) Sodium 139 (136-145) mEq/L Potassium 2.7 L (3.5-4.5) mEq/L Chloride 94 L (98-109) mEq/L Carbon Dioxide 36 H (19-29) mEq/L BUN 7 L (8-26) mg/dL Creatinine 0.66 L (0.72-1.25) mg/dL Est GFR ( Amer) > 60 (> 60) Est GFR (Non-Af Amer) > 60 (> 60) BUN/Creatinine Ratio 11 (6-26) Glucose 109 H (70-99) mg/dL Calculated Osmolality 287 (280-300) Calcium 8.8 (8.6-10.8) mg/dL Total Bilirubin 1.3 H (0.2-1.2) mg/dL Direct Bilirubin 0.6 H (0.0-0.5) mg/dL Indirect Bilirubin 0.7 (0.0-1.2) mg/dL AST 38 H (5-34) Units/L ALT 40 (0-55) Units/L Alkaline Phosphatase 152 H (38-126) Units/L Serum Total Protein 6.5 (6.0-8.3) g/dL Albumin 3.1 L (3.5-5.0) g/dL Globulin 3.4 (2.4-3.5) g/dL Albumin/Globulin Ratio 0.9 L (1.1-2.2) Salicylates < 5.0 L (15-30) mg/dL Urine Opiates Screen Negative (Dexied=595) ng/mL Acetaminophen < 1.0 L (10-30) mcg/mL Ur Barbiturates Screen Negative (Ajmsag=180) ng/mL Ur Phencyclidine Scrn Negative (Cutoff=25) ng/mL Ur Amphetamines Screen Negative (Yqavfs=3766) ng/mL U Benzodiazepines Scrn Negative (Ixabyu=995) ng/mL Urine Cocaine Screen Positive H (Cutoff= 300) ng/mL U Marijuana (THC) Screen Negative (Cutoff = 50) ng/mL Ethyl Alcohol < 10 (0-10) mg/dL
--- NOTE | 2016-11-23 00:29 | Emergency Department Note ---
Disposition Clinical Impression: Acute exacerbation of chronic obstructive airways disease Disposition: Home, Self-Care Condition: Good Instructions: Chronic Obstructive Pulmonary Disease (ED) Reasons to Return/Additional Instructions: Fever, chest pain, worsening symptoms. Follow up with her primary care physician in one to 2 days for reevaluation Prescriptions: Levofloxacin [Levaquin] 750 mg PO DAILY #10 tablet Potassium Chloride [K-Tab ER] 20 meq PO DAILY #5 tablet.er PredniSONE 60 mg PO DAILY #21 tablet [facility] [Primary Care Provider] - Forms: ED Satisfaction Letter General Adult HPI - General Chief complaint: ED Shortness of Breath/Dyspnea Stated complaint: SOB/SI Time Seen by Provider: 11/22/16 16:47 Source: patient, EMS Mode of arrival: EMS Limitations: no limitations - History of Present Illness Pain Scale: 1 - Related Data Home Medications Medication Instructions Recorded Confirmed Acetaminophen [Tylenol] 650 mg PO Q6HR PRN 07/06/16 11/22/16 Albuterol Neb [Proventil Neb] 2.5 mg IH QID PRN 07/06/16 11/22/16 Aripiprazole [Abilify] 15 mg PO DAILY 07/06/16 11/22/16 Aspirin [Lo-Dose Aspirin EC] 81 mg PO DAILY 07/06/16 11/22/16 Baclofen [Lioresal] 10 mg PO TID PRN 07/06/16 11/22/16 Budesonide/Formoterol 160/4.5 2 puff IH BID 07/06/16 11/22/16 [Symbicort 160/4.5] Dicyclomine [Bentyl] 10 mg PO TID 07/06/16 11/22/16 Docusate [Colace] 200 mg PO HS 07/06/16 11/22/16 Etodolac 400 mg PO BID PRN 07/06/16 11/22/16 Hydroxyzine HCl 50 mg PO BID 07/06/16 11/22/16 Lactobacillus Acidophilus 1 cap PO DAILY 07/06/16 11/22/16 [Acidophilus] Melatonin [Melatin] 9 mg PO HS 07/06/16 11/22/16 Oxybutynin Chloride [Ditropan Xl] 5 mg PO HS 07/06/16 11/22/16 Paroxetine [Paxil] 30 mg PO DAILY 07/06/16 11/22/16 Ranitidine HCl [Acid Elevated Work Platform Operator] 150 mg PO BID 07/06/16 11/22/16 Tiotropium [Spiriva] 18 mcg IH DAILY 07/06/16 11/22/16 TraZODone 300 mg PO HS 07/06/16 11/22/16 Loratadine [Allergy Relief] 10 mg PO DAILY 09/22/16 11/22/16 Nicotine Polacrilex [Nicotine 4 mg BC Q2H PRN 09/22/16 11/22/16 Lozenge] Sildenafil Citrate [Viagra] 50 mg PO AD PRN 09/22/16 11/22/16 Propranolol [Inderal] 10 mg PO BID 11/22/16 11/22/16 Previous Rx's Medication Instructions Recorded Albuterol Sulfate [Proair Hfa] 2 puff IH Q4H PRN #1 hfa.aer.ad 07/07/16 Levofloxacin [Levaquin] 750 mg PO DAILY #10 tablet 11/22/16 Potassium Chloride [K-Tab ER] 20 meq PO DAILY #5 tablet.er 11/22/16 PredniSONE 60 mg PO DAILY #21 tablet 11/22/16 Allergies Allergy/AdvReac Type Severity Reaction Status Date / Time haloperidol [From Haldol] AdvReac Muscle Pain Verified 09/01/16 04:17 [place] AdvReac Weakness Verified 09/01/16 04:17 Cardiovascular: Reports: chest pain, dyspnea on exertion Respiratory: Reports: cough, dyspnea, wheezes, sputum production Past Medical History - Past Medical History Medical history: Reports: COPD Surgical history: Reports: cholecystectomy Psychiatric history: Reports: anxiety, bipolar, depression - Social History Smoking Status: Former smoker Smokeless Tobacco Status: No Alcohol use: Reports: none Drug use: Reports: other Physical Exam - General Limitations: no limitations General appearance: alert, in distress (Respiratory) Course - Reevaluation(s) Reevaluation #1: Patient signed out pending transfer to [place]. Paperwork has been sent. [facility] Patient sleeping and cooperative. States he plans to commit suicide by overdosing on heroin and Percocet. He states he is on the same in the past. History of schizoaffective and bipolar. Not currently taking his medications because he has not gone to his appointments. Awaiting call back. Time: 00:28 Reevaluation #2: PA refuses transfer. States that he would need a medical bed for COPD that they do not have any sitters available. Contacting [facility] for assistance. Time: 01:56 Reevaluation #3: [facility] department says psychiatrist will evaluate in the am, but needs a medical admission. Dr mendez accepts. 40meq potassium given - second dose. Time: 02:26 Vital Signs Temperature 98.9 F 11/22/16 17:05 Pulse Rate 96 11/22/16 17:05 Respiratory Rate 18 11/22/16 17:05 Blood Pressure 122/78 11/22/16 17:05 O2 Sat by Pulse Oximetry 100 11/22/16 17:05 Temperature 98.9 F 11/22/16 17:05 Pulse Rate 104 11/22/16 22:48 Respiratory Rate 20 11/22/16 22:48 Blood Pressure 113/67 11/22/16 22:48 O2 Sat by Pulse Oximetry 98 11/22/16 22:48 Oxygen Delivery Oxygen Delivery Nasal Cannula Medical Decision Making - Lab Data Result diagrams: 11/22/16 17:44 11/22/16 17:44 Lab Results 11/22/16 11/22/16 11/22/16 Range/Units 17:44 17:44 18:58 WBC 5.9 (4.3-11.1) K/mcL RBC 4.21 (4.19-5.50) M/mcL Hgb 12.9 (12.9-16.9) g/dL Hct 37.1 L (37.5-50.1) % MCV 88.1 (83.0-100.0) fL MCH 30.6 (28.0-33.3) pg MCHC 34.8 (31.6-35.5) g/dL RDW 13.2 (11.5-14.5) % Plt Count 134 L (140-400) K/mcL MPV 9.7 (9.4-12.4) fL Immature Gran % 0.3 (0-4) % Seg Neutrophils % 60.9 % Lymphocytes % 25.0 % Monocytes % 11.1 % Eosinophils % 2.5 % Basophils % 0.2 % Neutrophils # 3.6 (1.6-8.9) K/mcL Lymphocytes # 1.5 (0.6-4.6) K/mcL Monocytes # 0.7 (0.0-1.3) K/mcL Eosinophils # 0.2 (0.0-0.6) K/mcL Basophils # 0.0 (0.0-0.2) K/mcL Reactive Lymphocytes Present A (Not Present) Platelet Estimate Slight Decrease L (Normal) Sodium 139 (136-145) mEq/L Potassium 2.7 L (3.5-4.5) mEq/L Chloride 94 L (98-109) mEq/L Carbon Dioxide 36 H (19-29) mEq/L BUN 7 L (8-26) mg/dL Creatinine 0.66 L (0.72-1.25) mg/dL Est GFR ( Amer) > 60 (> 60) Est GFR (Non-Af Amer) > 60 (> 60) BUN/Creatinine Ratio 11 (6-26) Glucose 109 H (70-99) mg/dL Calculated Osmolality 287 (280-300) Calcium 8.8 (8.6-10.8) mg/dL Total Bilirubin 1.3 H (0.2-1.2) mg/dL Direct Bilirubin 0.6 H (0.0-0.5) mg/dL Indirect Bilirubin 0.7 (0.0-1.2) mg/dL AST 38 H (5-34) Units/L ALT 40 (0-55) Units/L Alkaline Phosphatase 152 H (38-126) Units/L Serum Total Protein 6.5 (6.0-8.3) g/dL Albumin 3.1 L (3.5-5.0) g/dL Globulin 3.4 (2.4-3.5) g/dL Albumin/Globulin Ratio 0.9 L (1.1-2.2) Salicylates < 5.0 L (15-30) mg/dL Urine Opiates Screen Negative (Aeebtb=941) ng/mL Acetaminophen < 1.0 L (10-30) mcg/mL Ur Barbiturates Screen Negative (Mubmyu=857) ng/mL Ur Phencyclidine Scrn Negative (Cutoff=25) ng/mL Ur Amphetamines Screen Negative (Owajvs=9818) ng/mL U Benzodiazepines Scrn Negative (Szdgqx=630) ng/mL Urine Cocaine Screen Positive H (Cutoff= 300) ng/mL U Marijuana (THC) Screen Negative (Cutoff = 50) ng/mL Ethyl Alcohol < 10 (0-10) mg/dL
[2016-11-23] MEDS ORDERED: Acetaminophen 325 MG TABLET PO PRN (03:25)
[2016-11-23] MEDS ORDERED: Naloxone 0.4 MG/ML INJ IVP PRN (03:25)
[2016-11-23] MEDS ORDERED: Ipratropium/Albuterol Neb 3 ML IH PRN (03:31)
--- NOTE | 2016-11-23 03:41 | Internal Med History&Physical ---
Date of Encounter: 11/23/16 Time of Encounter: 03:00 Assessment and Plan (1) Acute exacerbation of chronic obstructive airways disease Current visit: Yes Status: Acute Patient had increased SOB with a mild nonproductive cough. Chest x-ray shows COPD. Patient has history of COPD, physical exam shows a wheezing bilaterally. consider COPD exacerbation - Continue steroid and bronchodilator - Oxygen supportive treatment. - Continue home medications (2) Cocaine abuse Current visit: Yes Status: Acute (3) Anxiety Current visit: No Status: Chronic continue home medication (4) Depression Current visit: No Status: Chronic Continue home medications Qualifiers: Depression Type: unspecified Qualified Code(s): F32.9 - Major depressive disorder, single episode, unspecified (5) Suicidal ideation Current visit: Yes Status: Acute Pt also said to me that he has idea to kill himself. Psychiatry consult was called by ER doctor. Will see patient in a.m. - Keep suicidal precaution. - Keep a sitter for patient (6) DVT prophylaxis Current visit: No Status: Acute Heparin subcutaneously. Internal Medicine - H&P: HPI Chief complaint: shortness of breath Admitted From: Home Plans for Post Hospital Care: Home History of present illness: Mr. Sosa is a 60 year old male with history of COPD, schizophrenia present to ER for shortness of breath. Patient said he started to have shortness of breath from 3 days ago, symptoms is getting worse. he denies chest pain, nausea , vomiting, diaphoresis. In ER he was treated with by mouth steroids and nebulizer bronchodilator. After treatment, his symptoms has improved. Patient also mentioned a suicide idea to ER doctor. He was admitted for COPD exacerbation and suicidal idea. I discussed the CODE STATUS with patient. he is full code. Past Med Surg Social Fam HX - Past Medical History Medical history: COPD Psychiatric history: anxiety, bipolar, depression - Past Surgical History Surgical History: cholecystectomy - Social History Smoking Status: Former smoker Smokeless Tobacco Status: No Alcohol use: none Drug use: other - Family History Mother Adopted: No Family Member Ethnicity: Non- Living Status: Hx Family Cardiac Disorders: Yes (sister) Hx Family Respiratory Disorders: Yes (dad emphezema) Hx Family Cancer: Yes (lung CA) Hx Family GI Disorders: No Hx Family Endocrine Disorder: Yes (Diabetes) Hx Family Neuromuscular Disorders: No Hx Family Neurologic Disorders: No Hx Family HEENT Disorders: No Hx Family Autoimmune Disorders: No Father Living Status: Hx Family Cancer: Yes (Lung cancer) Internal Medicine - H&P: Meds Acetaminophen [Tylenol] 650 mg PO Q6HR PRN 07/06/16 [History] Albuterol Neb [Proventil Neb] 2.5 mg IH QID PRN 07/06/16 [History] Aripiprazole [Abilify] 15 mg PO DAILY 07/06/16 [History] Aspirin [Lo-Dose Aspirin EC] 81 mg PO DAILY 07/06/16 [History] Baclofen [Lioresal] 10 mg PO TID PRN 07/06/16 [History] Budesonide/Formoterol 160/4.5 [Symbicort 160/4.5] 2 puff IH BID 07/06/16 [ History] Dicyclomine [Bentyl] 10 mg PO TID 07/06/16 [History] Docusate [Colace] 200 mg PO HS 07/06/16 [History] Etodolac 400 mg PO BID PRN 07/06/16 [History] Hydroxyzine HCl 50 mg PO BID 07/06/16 [History] Lactobacillus Acidophilus [Acidophilus] 1 cap PO DAILY 07/06/16 [History] Melatonin [Melatin] 9 mg PO HS 07/06/16 [History] Oxybutynin Chloride [Ditropan Xl] 5 mg PO HS 07/06/16 [History] Paroxetine [Paxil] 30 mg PO DAILY 07/06/16 [History] Ranitidine HCl [Acid Elevator Constructor Supervisor] 150 mg PO BID 07/06/16 [History] Tiotropium [Spiriva] 18 mcg IH DAILY 07/06/16 [History] TraZODone 300 mg PO HS 07/06/16 [History] Albuterol Sulfate [Proair Hfa] 2 puff IH Q4H PRN #1 hfa.aer.ad 07/07/16 [Rx] Loratadine [Allergy Relief] 10 mg PO DAILY 09/22/16 [History] Nicotine Polacrilex [Nicotine Lozenge] 4 mg BC Q2H PRN 09/22/16 [History] Sildenafil Citrate [Viagra] 50 mg PO AD PRN 09/22/16 [History] Levofloxacin [Levaquin] 750 mg PO DAILY #10 tablet 11/22/16 [Rx] Potassium Chloride [K-Tab ER] 20 meq PO DAILY #5 tablet.er 11/22/16 [Rx] PredniSONE 60 mg PO DAILY #21 tablet 11/22/16 [Rx] Propranolol [Inderal] 10 mg PO BID 11/22/16 [History] Allergies haloperidol [From Haldol] Adverse Reaction (Verified 09/01/16 04:17) Muscle Pain [place] Adverse Reaction (Verified 09/01/16 04:17) Weakness All Systems PM: A 10-system review of systems was performed and is negative for pertinent findings except as documented above in the HPI. - Constitutional Vitals: Temp Pulse Resp BP Pulse Ox 98.9 F 104 20 0/0 98 11/22/16 17:05 11/22/16 22:48 11/23/16 02:56 11/23/16 02:56 11/22/16 22:48 General appearance: Present: A&O X 3, pleasant, no acute distress, answers questions appropriately - Head Head exam: Present: atraumatic, normocephalic - Eye Eye exam: Present: PERRL, conjuntiva pink, sclera anicteric Pupils: Present: PERRL - Neck Neck exam general surgery: Present: supple, trachea midline. Absent: lymphadenopathy - Respiratory Respiratory exam: Present: CTAB, wheezes (Diffused wheezes bilaterally). Absent : accessory muscle use, rales, rhonchi - Cardiovascular Cardiovascular exam: Present: RRR, +S1, +S2. Absent: diastolic murmur, gallop, rubs, systolic murmur - GI/Abdominal GI/Abdominal exam: Present: normal bowel sounds, soft, no peritoneal signs. Absent: distended, tenderness - Extremities Exam Extremities exam: Present: warm, radial pulses palpable and symetrical. Absent : calf tenderness, cyanotic, pedal edema - Neurological Exam Neurological exam: Present: CN II-XII intact, oriented X3, no focal deficits. Absent: pronater drift, facial droop, speech deficit - Skin Skin exam: Present: dry, intact Internal Med - H&P Results - Labs CBC & Chem 7: 11/22/16 17:44 11/22/16 17:44
[2016-11-23] MEDS: Ipratropium/Albuterol Neb 3 ML IH SCH ×6 (04:11→23:56)
[2016-11-23] MEDS: *HR* Heparin 5,000 UNIT/ML VIAL SQ SCH ×2 (05:18→18:28)
[2016-11-23 06:06] LABS: Hemoglobin 12.5 g/dL (12.9-16.9); Immature Granulocytes % 0.2 % (0-4); Lymphocytes # 1.1 K/mcL (0.6-4.6); Mean Corpuscular HGB Conc 34.7 g/dL (31.6-35.5); Mean Corpuscular Hemoglobin 30.6 pg (28.0-33.3); Mean Corpuscular Volume 88.2 fL (83.0-100.0); Mean Platelet Volume 10.3 fL (9.4-12.4); Monocytes # 0.4 K/mcL (0.0-1.3); Monocytes % 8.1 %; Platelet Count 154 K/mcL (140-400); Red Blood Count 4.08 M/mcL (4.19-5.50); Red Cell Distribution Width 13.2 % (11.5-14.5); Segmented Neutrophils % 67.7 %
[2016-11-23 06:23] LABS: BUN/Creatinine Ratio 9 (6-26); Blood Urea Nitrogen 7 mg/dL (8-26); Calcium 8.8 mg/dL (8.6-10.8); Carbon Dioxide 33 mEq/L (19-29); Chloride 97 mEq/L (98-109); Glucose 236 mg/dL (70-99); Magnesium 1.8 mg/dL (1.6-2.6); Osmolality,Calculated 290 (280-300); Potassium 3.4 mEq/L (3.5-4.5); Sodium 137 mEq/L (136-145); eGFR For African Americans > 60 (> 60); eGFR For Non-African Americans > 60 (> 60)
[2016-11-23] MEDS: Nicotine 14 MG PATCH.TD24 TD SCH (07:31)
[2016-11-23] MEDS: hydrOXYzine pamoate 25 MG CAPSULE PO SCH ×2 (07:32→21:49)
[2016-11-23] MEDS: ARIPiprazole 10 MG TABLET PO SCH (07:33)
[2016-11-23] MEDS ORDERED: Potassium Chloride Elixir 20 MEQ/15 ML UDC PO ONE (07:34)
[2016-11-23] MEDS: Aspirin Enteric Coated 81 MG Tablet PO SCH (07:34)
[2016-11-23] MEDS: Lactobacillus 1 EACH CAP.SPRINK PO SCH (07:34)
[2016-11-23] MEDS: Loratadine 10 MG TABLET PO SCH (07:35)
[2016-11-23] MEDS: Baclofen 10 MG TABLET PO PRN ×2 (07:52→14:43)
[2016-11-23] MEDS: Budesonide/Formoterol 160/4.5 MDI IH SCH ×2 (08:44→19:52)
[2016-11-23] MEDS ORDERED: predniSONE 20 MG TABLET PO SCH (09:00)
--- NOTE | 2016-11-23 11:18 | Event Note ---
Date of Encounter: 11/23/16 Time of Encounter: 10:45 60 year old male with h/o- bipolar disorder, schizoaffective disorder, depression, COPD, admitted with acute COPD and suicidal ideation. Patient reports he quit using his Psychiatric meds and began using IV Cocaine about 2 months ago, and also ran out of COPD meds recently, did not fill his prescriptions. Admits to suicidal thoughts for the last 3 days; reports he lives alone, has no family anywhere, has been having difficulty caring for himself; Patient seen and examined. Has coarse breath sounds bilaterally with diffuse end -expiratory wheezing, Heart sounds are regular, rate-controlled. Acute exacerbation of COPD- likely due to noncompliance; CXR shows no e/o- PNA. change steroids to IV Solumedrol; continue bronchodilators and supplemental O2; send Influenza Ag and respiratory viral panel; supportive care; Suicidal ideation, depression- likely due to drug use and noncompliance to meds ; continue 1:1 sitter for safety; f/up Psychiatry consult;
--- NOTE | 2016-11-23 13:34 | Consult Note ---
Date of Encounter: 11/23/16 Time of Encounter: 13:00 Assessment & Recommendation (1) Schizoaffective disorder, bipolar type Current visit: Yes Status: Acute Assessment & Recommendation: Currently patient mental status is stable he is not suicidal or psychotic. he would benefit from referral to the [facility] to a dual diagnosis program and substance abuse treatment and to continue with his psychiatric outpatient services. Patient will not need a sitter at this time and he can be discharged from the hospital when medically stable. (2) Cocaine abuse Current visit: Yes Status: Acute History of Present Illness Patient: new to practice Requesting Physician: Fifi Goldsmith MD Reason for consult: Suicidal ideation History of present illness: Mr. Sosa is a 60 year old male admitted to the medical service for evaluation and treatment of COPD excacerbation and noncompliance with medication in addition he also presented suicidal ideation. Patient has a history of psychiatric treatment for schizoaffective disorder and bipolar at the [facility] and in the last 2 months he stopped taking his medication and started using cocaine and did not take his COPD medication and his condition deteriorated and came to the emergency room. Patient stated that he has been sober from using drugs for the past 16 months until he relapsed in the last couple months patient has a previous history of rehabilitation at the [facility] and like to go back the program to get help. Patient is currently on Abilify and Paxil and trazodone. On interview with the patient was cooperative and honest and denied any intent to kill himself or to do any self-harm and he believes his change in mental status was related to using drugs. CC: Fifi Goldsmith MD Past Med Surg Social Fam HX - Past Medical History Medical history: COPD - Past Psychiatric History Psychiatric history: Reports: bipolar, depression, schizophrenia Family psychiatric history: Unknown Family History of Suicide: Unknown - Past Surgical History Surgical History: cholecystectomy - Social History Smoking Status: Former smoker Smokeless Tobacco Status: No Alcohol use: none Drug use: other - Family History Mother Adopted: No Family Member Ethnicity: Non- Living Status: Hx Family Cardiac Disorders: Yes (sister) Hx Family Respiratory Disorders: Yes (dad emphezema) Hx Family Cancer: Yes (lung CA) Hx Family GI Disorders: No Hx Family Endocrine Disorder: Yes (Diabetes) Hx Family Neuromuscular Disorders: No Hx Family Neurologic Disorders: No Hx Family HEENT Disorders: No Hx Family Autoimmune Disorders: No Father Living Status: Hx Family Cancer: Yes (Lung cancer) Medications & Allergies Acetaminophen [Tylenol] 650 mg PO Q6HR PRN 07/06/16 [History] Albuterol Neb [Proventil Neb] 2.5 mg IH QID PRN 07/06/16 [History] Aripiprazole [Abilify] 15 mg PO DAILY 07/06/16 [History] Aspirin [Lo-Dose Aspirin EC] 81 mg PO DAILY 07/06/16 [History] Baclofen [Lioresal] 10 mg PO TID PRN 07/06/16 [History] Budesonide/Formoterol 160/4.5 [Symbicort 160/4.5] 2 puff IH BID 07/06/16 [ History] Dicyclomine [Bentyl] 10 mg PO TID 07/06/16 [History] Docusate [Colace] 200 mg PO HS 07/06/16 [History] Etodolac 400 mg PO BID PRN 07/06/16 [History] Hydroxyzine HCl 50 mg PO BID 07/06/16 [History] Lactobacillus Acidophilus [Acidophilus] 1 cap PO DAILY 07/06/16 [History] Melatonin [Melatin] 9 mg PO HS 07/06/16 [History] Oxybutynin Chloride [Ditropan Xl] 5 mg PO HS 07/06/16 [History] Paroxetine [Paxil] 30 mg PO DAILY 07/06/16 [History] Ranitidine HCl [Acid Digital Associate Media Director] 150 mg PO BID 07/06/16 [History] Tiotropium [Spiriva] 18 mcg IH DAILY 07/06/16 [History] TraZODone 300 mg PO HS 07/06/16 [History] Albuterol Sulfate [Proair Hfa] 2 puff IH Q4H PRN #1 hfa.aer.ad 07/07/16 [Rx] Loratadine [Allergy Relief] 10 mg PO DAILY 09/22/16 [History] Nicotine Polacrilex [Nicotine Lozenge] 4 mg BC Q2H PRN 09/22/16 [History] Sildenafil Citrate [Viagra] 50 mg PO AD PRN 09/22/16 [History] Levofloxacin [Levaquin] 750 mg PO DAILY #10 tablet 11/22/16 [Rx] Potassium Chloride [K-Tab ER] 20 meq PO DAILY #5 tablet.er 11/22/16 [Rx] PredniSONE 60 mg PO DAILY #21 tablet 11/22/16 [Rx] Propranolol [Inderal] 10 mg PO BID 11/22/16 [History] Allergies haloperidol [From Haldol] Adverse Reaction (Verified 09/01/16 04:17) Muscle Pain [place] Adverse Reaction (Verified 09/01/16 04:17) Weakness Mental Status Exam Patient orientation: Yes Person, Yes Time, Yes Place Level of alertness: Alert Patient appearance: Appropriate, Well Groomed, Average Behavior: calm, cooperative Psychomotor activity: Normal Eye contact: Maintains Eye Contact Mood description: Euthymic/stable Affect description: congruent with mood, full range Speech pattern: Normal rate, Normal rhythm, Normal tone Speech volume: Normal Thought process: Linear, Goal Oriented Thought content: No Suicidal ideation, No Homicidal ideation, No Overt delusions Perceptual disturbances: No Auditory hallucinations, No Visual hallucinations Attention span: Capable of Focused Attention Memory description: Grossly Intact Patient reliability: Reliable Historian Intelligence estimate: Average Judgment: Limited Insight: Partial Results - Vital Signs Vital signs: Temp Pulse Resp BP Pulse Ox 98.3 F 105 16 125/77 96 11/23/16 10:48 11/23/16 10:48 11/23/16 11:37 11/23/16 10:48 11/23/16 11:37 - Labs Labs: Laboratory Last Values WBC 4.5 K/mcL (4.3-11.1) 11/23/16 05:47 RBC 4.08 M/mcL (4.19-5.50) L 11/23/16 05:47 Hgb 12.5 g/dL (12.9-16.9) L 11/23/16 05:47 Hct 36.0 % (37.5-50.1) L 11/23/16 05:47 MCV 88.2 fL (83.0-100.0) 11/23/16 05:47 MCH 30.6 pg (28.0-33.3) 11/23/16 05:47 MCHC 34.7 g/dL (31.6-35.5) 11/23/16 05:47 RDW 13.2 % (11.5-14.5) 11/23/16 05:47 Plt Count 154 K/mcL (140-400) 11/23/16 05:47 MPV 10.3 fL (9.4-12.4) 11/23/16 05:47 Immature Gran % 0.2 % (0-4) 11/23/16 05:47 Seg Neutrophils % 67.7 % 11/23/16 05:47 Lymphocytes % 24.0 % 11/23/16 05:47 Monocytes % 8.1 % 11/23/16 05:47 Eosinophils % 0.0 % 11/23/16 05:47 Basophils % 0.0 % 11/23/16 05:47 Neutrophils # 3.0 K/mcL (1.6-8.9) 11/23/16 05:47 Lymphocytes # 1.1 K/mcL (0.6-4.6) 11/23/16 05:47 Monocytes # 0.4 K/mcL (0.0-1.3) 11/23/16 05:47 Eosinophils # 0.0 K/mcL (0.0-0.6) 11/23/16 05:47 Basophils # 0.0 K/mcL (0.0-0.2) 11/23/16 05:47 Reactive Lymphocytes Present (Not Present) A 11/22/16 17:44 Platelet Estimate Slight Decrease (Normal) L 11/22/16 17:44 Sodium 137 mEq/L (136-145) 11/23/16 05:47 Potassium 3.4 mEq/L (3.5-4.5) L 11/23/16 05:47 Chloride 97 mEq/L (98-109) L 11/23/16 05:47 Carbon Dioxide 33 mEq/L (19-29) H 11/23/16 05:47 BUN 7 mg/dL (8-26) L 11/23/16 05:47 Creatinine 0.75 mg/dL (0.72-1.25) 11/23/16 05:47 Est GFR ( Amer) > 60 (> 60) 11/23/16 05:47 Est GFR (Non-Af Amer) > 60 (> 60) 11/23/16 05:47 BUN/Creatinine Ratio 9 (6-26) 11/23/16 05:47 Glucose 236 mg/dL (70-99) H 11/23/16 05:47 Calculated Osmolality 290 (280-300) 11/23/16 05:47 Calcium 8.8 mg/dL (8.6-10.8) 11/23/16 05:47 Magnesium 1.8 mg/dL (1.6-2.6) 11/23/16 05:47 Total Bilirubin 1.3 mg/dL (0.2-1.2) H 11/22/16 17:44 Direct Bilirubin 0.6 mg/dL (0.0-0.5) H 11/22/16 17:44 Indirect Bilirubin 0.7 mg/dL (0.0-1.2) 11/22/16 17:44 AST 38 Units/L (5-34) H 11/22/16 17:44 ALT 40 Units/L (0-55) 11/22/16 17:44 Alkaline Phosphatase 152 Units/L (38-126) H 11/22/16 17:44 Serum Total Protein 6.5 g/dL (6.0-8.3) 11/22/16 17:44 Albumin 3.1 g/dL (3.5-5.0) L 11/22/16 17:44 Globulin 3.4 g/dL (2.4-3.5) 11/22/16 17:44 Albumin/Globulin Ratio 0.9 (1.1-2.2) L 11/22/16 17:44 Salicylates < 5.0 mg/dL (15-30) L 11/22/16 17:44 Urine Opiates Screen Negative ng/mL (Pyltik=007) 11/22/16 18:58 Acetaminophen < 1.0 mcg/mL (10-30) L 11/22/16 17:44 Ur Barbiturates Screen Negative ng/mL (Zglkbi=212) 11/22/16 18:58 Ur Phencyclidine Scrn Negative ng/mL (Cutoff=25) 11/22/16 18:58 Ur Amphetamines Screen Negative ng/mL (Jqbarm=5360) 11/22/16 18:58 U Benzodiazepines Scrn Negative ng/mL (Mbedkg=477) 11/22/16 18:58 Urine Cocaine Screen Positive ng/mL (Cutoff= 300) H 11/22/16 18:58 U Marijuana (THC) Screen Negative ng/mL (Cutoff = 50) 11/22/16 18:58 Ethyl Alcohol < 10 mg/dL (0-10) 11/22/16 17:44 Consult Discharge Plan - Plan [facility]errals: [facility] [Primary Care Provider] -
[2016-11-23] MEDS: MethylPREDNISolone 40 MG/ML VIAL IVP SCH ×2 (14:43→23:54)
--- NOTE | 2016-11-23 19:39 | Orthopedic Consult Note ---
Date of Encounter: 11/23/16 Time of Encounter: 19:37 Assessment and Plan (1) Finger laceration Current Visit: Yes Status: Acute I did discuss the diagnosis with the patient in detail. He has a right small finger laceration which did elevate a small proximally based flap which is gone on to heal in an elevated position causing a lesion with the appearance of a skin tag. Treatment options were discussed including observation versus lesion resection. The patient does desire to be removed and I did indicate that we would schedule this on an outpatient basis once he recovers from his COPD exacerbation. When he is medically stable for discharge I will see him in the office where we would likely perform the procedure under a local anesthetic. He is stable for discharge from the orthopedic standpoint and he will follow up with me upon discharge. No orthopedic restrictions. Qualifiers: Qualified Code(s): S61.219A - Laceration without foreign body of unspecified finger without damage to nail, initial encounter History of Present Illness HPI: Mr. Sosa is a 60 year old male who is currently admitted to the hospitalist due to his COPD exacerbation. In an unrelated note he sustained a laceration to the right small finger on a piece of glass about a month ago. This was noticed today by the hospitalist and I was asked to assist in the evaluation and management of this patient. The patient indicates that about a month ago he did sustain a laceration on the dorsal and ulnar aspect of the right small finger on a piece of broken glass. He did not seek any medical attention and indicates that the laceration resulted in a small proximally based skin flap localized over the dorsal and ulnar aspect of the right small finger proximal interphalangeal joint. This has gone on to form a lesion similar to a skin tag. He denies any drainage, redness, or any feelings of illness. This does not bother him and there is minimal pain. He denies any numbness, tingling, or any other associated signs or symptoms. He denies any modifying factors and indicates that he has not lost any function of the small finger. Past Med Surg Social Fam HX - Past Medical History Medical history: COPD Psychiatric history: bipolar, depression, schizophrenia - Past Surgical History Surgical History: cholecystectomy - Social History Smoking Status: Former smoker Packs per day: 0.25 Smokeless Tobacco Status: No Alcohol use: none Drug use: other - Family History Mother Adopted: No Family Member Ethnicity: Non- Living Status: Hx Family Cardiac Disorders: Yes (sister) Hx Family Respiratory Disorders: Yes (dad emphezema) Hx Family Cancer: Yes (lung CA) Hx Family GI Disorders: No Hx Family Endocrine Disorder: Yes (Diabetes) Hx Family Neuromuscular Disorders: No Hx Family Neurologic Disorders: No Hx Family HEENT Disorders: No Hx Family Autoimmune Disorders: No Father Living Status: Hx Family Cancer: Yes (Lung cancer) Medications and Allergies Acetaminophen [Tylenol] 650 mg PO Q6HR PRN 07/06/16 [History] Albuterol Neb [Proventil Neb] 2.5 mg IH QID PRN 07/06/16 [History] Aripiprazole [Abilify] 15 mg PO DAILY 07/06/16 [History] Aspirin [Lo-Dose Aspirin EC] 81 mg PO DAILY 07/06/16 [History] Baclofen [Lioresal] 10 mg PO TID PRN 07/06/16 [History] Budesonide/Formoterol 160/4.5 [Symbicort 160/4.5] 2 puff IH BID 07/06/16 [ History] Dicyclomine [Bentyl] 10 mg PO TID 07/06/16 [History] Docusate [Colace] 200 mg PO HS 07/06/16 [History] Etodolac 400 mg PO BID PRN 07/06/16 [History] Hydroxyzine HCl 50 mg PO BID 07/06/16 [History] Lactobacillus Acidophilus [Acidophilus] 1 cap PO DAILY 07/06/16 [History] Melatonin [Melatin] 9 mg PO HS 07/06/16 [History] Oxybutynin Chloride [Ditropan Xl] 5 mg PO HS 07/06/16 [History] Paroxetine [Paxil] 30 mg PO DAILY 07/06/16 [History] Ranitidine HCl [Acid Liquefaction And Regasification Helper] 150 mg PO BID 07/06/16 [History] Tiotropium [Spiriva] 18 mcg IH DAILY 07/06/16 [History] TraZODone 300 mg PO HS 07/06/16 [History] Albuterol Sulfate [Proair Hfa] 2 puff IH Q4H PRN #1 hfa.aer.ad 07/07/16 [Rx] Loratadine [Allergy Relief] 10 mg PO DAILY 09/22/16 [History] Nicotine Polacrilex [Nicotine Lozenge] 4 mg BC Q2H PRN 09/22/16 [History] Sildenafil Citrate [Viagra] 50 mg PO AD PRN 09/22/16 [History] Levofloxacin [Levaquin] 750 mg PO DAILY #10 tablet 11/22/16 [Rx] Potassium Chloride [K-Tab ER] 20 meq PO DAILY #5 tablet.er 11/22/16 [Rx] PredniSONE 60 mg PO DAILY #21 tablet 11/22/16 [Rx] Propranolol [Inderal] 10 mg PO BID 11/22/16 [History] Allergies haloperidol [From Haldol] Adverse Reaction (Verified 09/01/16 04:17) Muscle Pain [place] Adverse Reaction (Verified 09/01/16 04:17) Weakness All Systems Reviewed: Constitutional and musculoskeletal systems were reviewed and are negative unless otherwise stated in history of present illness. Physical Exam - Constitutional Vitals: Temp Pulse Resp BP Pulse Ox 98.3 F 112 17 112/62 97 11/23/16 18:27 11/23/16 18:27 11/23/16 18:27 11/23/16 18:27 11/23/16 18:27 CONSTITUTIONAL -Vitals reviewed -The patient is well developed, well nourished, well groomed PSYCHIATRIC -Fully alert and oriented x 3 -Pleasant mood RIGHT UPPER EXTREMITY Inspection shows that there is a small lesion which appears to be a skin tag localized to the dorsal and ulnar aspect of the right small finger which is likely the result of a small proximally based skin flap that was elevated and healed in an elevated fashion. It measures about 2-3 mm in diameter. There is no surrounding redness, drainage, or concern for infection. It is minimally tender. The base from which the flap was elevated is granulating in nicely without concern for infection. He has full active and passive motion of the interphalangeal joints and the fingertip is sensate and well-perfused. The remaining portion of the hand does not show any lesions or tenderness and is neurovascularly intact. Results - Labs Result Diagrams: 11/23/16 05:47 11/23/16 05:47 Labs: Abnormal lab results RBC 4.08 M/mcL (4.19-5.50) L 11/23/16 05:47 Hgb 12.5 g/dL (12.9-16.9) L 11/23/16 05:47 Hct 36.0 % (37.5-50.1) L 11/23/16 05:47 Reactive Lymphocytes Present (Not Present) A 11/22/16 17:44 Platelet Estimate Slight Decrease (Normal) L 11/22/16 17:44 Potassium 3.4 mEq/L (3.5-4.5) L 11/23/16 05:47 Chloride 97 mEq/L (98-109) L 11/23/16 05:47 Carbon Dioxide 33 mEq/L (19-29) H 11/23/16 05:47 BUN 7 mg/dL (8-26) L 11/23/16 05:47 Glucose 236 mg/dL (70-99) H 11/23/16 05:47 Total Bilirubin 1.3 mg/dL (0.2-1.2) H 11/22/16 17:44 Direct Bilirubin 0.6 mg/dL (0.0-0.5) H 11/22/16 17:44 AST 38 Units/L (5-34) H 11/22/16 17:44 Alkaline Phosphatase 152 Units/L (38-126) H 11/22/16 17:44 Albumin 3.1 g/dL (3.5-5.0) L 11/22/16 17:44 Albumin/Globulin Ratio 0.9 (1.1-2.2) L 11/22/16 17:44 Salicylates < 5.0 mg/dL (15-30) L 11/22/16 17:44 Acetaminophen < 1.0 mcg/mL (10-30) L 11/22/16 17:44 Urine Cocaine Screen Positive ng/mL (Cutoff= 300) H 11/22/16 18:58 H & H 11/23/16 Range/Units 05:47 Hgb 12.5 L (12.9-16.9) g/dL Hct 36.0 L (37.5-50.1) % All other labs normal. Consult Discharge Plan - Plan [facility]errals: [facility] [Primary Care Provider] -
[2016-11-23] MEDS: traZODone 50 MG TABLET PO SCH (21:49)
[2016-11-23] MEDS: Melatonin 3 MG TABLET PO SCH (21:49)
[2016-11-23 22:24] LABS: Adenovirus Not Detected (Not Detect); Bordetella Pertussis Not Detected (Not Detect); Chlamydophila pneumoniae Not Detected (Not Detect); Coronavirus 229E Not Detected (Not Detect); Coronavirus HKU1 Not Detected (Not Detect); Coronavirus NL63 Not Detected (Not Detect); Coronavirus OC43 Not Detected (Not Detect); Human Metapneumovirus Not Detected (Not Detect); Human Rhinovirus/Enterovirus Not Detected (Not Detect); Influenza A Subtype 2009 H1 Not Detected (Not Detect); Influenza A Untypeable Not Detected (Not Detect); Influenza B Not Detected (Not Detect); Mycoplasma pneumoniae Not Detected (Not Detect); Parainfluenza Virus 1 Not Detected (Not Detect); Parainfluenza Virus 2 Not Detected (Not Detect); Parainfluenza Virus 3 Not Detected (Not Detect); Parainfluenza Virus 4 Not Detected (Not Detect); Respiratory Syncytial Virus Not Detected (Not Detect)
[2016-11-24] MEDS: Ipratropium/Albuterol Neb 3 ML IH SCH ×6 (04:04→23:29)
[2016-11-24 05:17] LABS: BUN/Creatinine Ratio 17 (6-26); Blood Urea Nitrogen 12 mg/dL (8-26); Calcium 8.7 mg/dL (8.6-10.8); Carbon Dioxide 33 mEq/L (19-29); Chloride 100 mEq/L (98-109); Glucose 190 mg/dL (70-99); Magnesium 1.9 mg/dL (1.6-2.6); Osmolality,Calculated 291 (280-300); Potassium 3.5 mEq/L (3.5-4.5); Sodium 138 mEq/L (136-145); eGFR For African Americans > 60 (> 60); eGFR For Non-African Americans > 60 (> 60)
[2016-11-24] MEDS: *HR* Heparin 5,000 UNIT/ML VIAL SQ SCH ×2 (05:58→17:14)
[2016-11-24] MEDS: hydrOXYzine pamoate 25 MG CAPSULE PO SCH ×2 (09:31→21:08)
[2016-11-24] MEDS: MethylPREDNISolone 40 MG/ML VIAL IVP SCH ×2 (09:31→14:05)
[2016-11-24] MEDS: Nicotine 14 MG PATCH.TD24 TD SCH (09:31)
[2016-11-24] MEDS: ARIPiprazole 10 MG TABLET PO SCH (09:32)
[2016-11-24] MEDS: Loratadine 10 MG TABLET PO SCH (09:32)
[2016-11-24] MEDS: Aspirin Enteric Coated 81 MG Tablet PO SCH (09:32)
[2016-11-24] MEDS: Baclofen 10 MG TABLET PO PRN ×2 (09:32→14:04)
[2016-11-24] MEDS: Lactobacillus 1 EACH CAP.SPRINK PO SCH (09:32)
[2016-11-24] MEDS: Budesonide/Formoterol 160/4.5 MDI IH SCH ×2 (11:02→19:57)
--- NOTE | 2016-11-24 12:29 | Internal Med Progress Note ---
Date of Encounter: 11/24/16 Time of Encounter: 11:55 - Assessment and plan (1) Suicidal ideation Current Visit: Yes Status: Acute Assessment and plan: Patient has been evaluated by psychiatric. No current suicidal or homicidal ideation, one-on-one sitter has been discontinued. Patient is cleared for discharge home when medically stable. [facility]. (2) Finger laceration Current Visit: Yes Status: Chronic Assessment and plan: patient sustained a laceration while dishwashing about 2-3 weeks back and currently has a thick skin flap that has grown into a skin tag, which is slightly tender. Orthopedics evaluation appreciated, patient may need excision of the skin tag as an outpatient when his acute medical issues resolve. Qualifiers: Encounter type: initial encounter Qualified Code(s): S61.219A - Laceration without foreign body of unspecified finger without damage to nail, initial encounter (3) Acute exacerbation of chronic obstructive airways disease Current Visit: Yes Status: Acute Assessment and plan: improving. Taper down IV steroids as tolerated. Continue bronchodilators, inhaled corticosteroids, supplemental oxygen as needed. Wean down FiO2 as tolerated. Supportive care. technical services representative consult for medical noncompliance and cocaine abuse. (4) Tobacco abuse Current Visit: Yes Status: Chronic Assessment and plan: Continue nicotine transdermal patch. (5) Depression Current Visit: Yes Status: Chronic Assessment and plan: Resume home medications. technical services representative consult for medical noncompliance. Qualifiers: Depression Type: unspecified Qualified Code(s): F32.9 - Major depressive disorder, single episode, unspecified (6) Bipolar disease, chronic Current Visit: Yes Status: Chronic (7) Schizoaffective disorder, bipolar type Current Visit: Yes Status: Chronic (8) Cocaine abuse Current Visit: Yes Status: Chronic - Subjective Interval history: Feels better today, breathing better; did not have a good night's sleep as he stayed awake mostly per him; Psychiatry evaluation done and patient is off 1:1 sitter; - Constitutional Vitals: Temp Pulse Resp BP Pulse Ox 98.4 F 76 16 105/61 96 11/24/16 11:21 11/24/16 11:21 11/24/16 11:21 11/24/16 11:21 11/24/16 11:21 General appearance: Present: A&O X 3, answers questions appropriately - Respiratory Respiratory exam: Present: decreased breath sounds (B/L decreased air entry, no wheezing or rhonchi), CTAB. Absent: accessory muscle use, rales, rhonchi, wheezes - Cardiovascular Cardiovascular exam: Present: RRR, +S1, +S2. Absent: diastolic murmur, gallop, rubs, systolic murmur - GI/Abdominal GI/Abdominal exam: Present: normal bowel sounds, soft, no peritoneal signs. Absent: distended, tenderness - Extremities Exam Extremities exam: Present: full ROM, warm, radial pulses palpable and symetrical. Absent: calf tenderness, cyanotic, pedal edema Internal Medicine: Result - Labs CBC & Chem 7: 11/23/16 05:47 11/24/16 04:30 Labs: BMP 11/24/16 04:30 Sodium 138 Potassium 3.5 Chloride 100 Carbon Dioxide 33 H BUN 12 Creatinine 0.71 L Glucose 190 H Calcium 8.7 Consult Discharge Plan - Plan [facility]errals: [facility] [Primary Care Provider] -
[2016-11-24] MEDS: Melatonin 3 MG TABLET PO SCH (21:07)
[2016-11-24] MEDS: traZODone 50 MG TABLET PO SCH (21:08)
[2016-11-25] MEDS: MethylPREDNISolone 40 MG/ML VIAL IVP SCH ×3 (00:13→19:24)
[2016-11-25] MEDS: Ipratropium/Albuterol Neb 3 ML IH SCH ×6 (03:58→23:25)
[2016-11-25] MEDS: *HR* Heparin 5,000 UNIT/ML VIAL SQ SCH ×2 (06:06→17:57)
[2016-11-25] MEDS: Nicotine 14 MG PATCH.TD24 TD SCH (08:25)
[2016-11-25] MEDS: Baclofen 10 MG TABLET PO PRN ×3 (08:26→21:34)
[2016-11-25] MEDS: Loratadine 10 MG TABLET PO SCH (08:26)
[2016-11-25] MEDS: Aspirin Enteric Coated 81 MG Tablet PO SCH (08:26)
[2016-11-25] MEDS: ARIPiprazole 10 MG TABLET PO SCH (08:26)
[2016-11-25] MEDS: hydrOXYzine pamoate 25 MG CAPSULE PO SCH ×2 (08:26→21:33)
[2016-11-25] MEDS: Lactobacillus 1 EACH CAP.SPRINK PO SCH (08:26)
[2016-11-25] MEDS: Budesonide/Formoterol 160/4.5 MDI IH SCH ×2 (11:04→19:17)
--- NOTE | 2016-11-25 11:46 | Internal Med Progress Note ---
Date of Encounter: 11/25/16 Time of Encounter: 11:45 - Assessment and plan (1) Suicidal ideation Current Visit: Yes Status: Resolved Assessment and plan: Patient has been evaluated by psychiatric. No current suicidal or homicidal ideation, one-on-one sitter has been discontinued. Patient is cleared for discharge home when medically stable. He needs [facility]. rn support services consult. (2) Finger laceration Current Visit: Yes Status: Chronic Assessment and plan: patient sustained a laceration on right fifth finger, while dishwashing about 2- 3 weeks back and currently has a thick skin flap that has grown into a skin tag , which is slightly tender. Orthopedics evaluation appreciated, patient may need excision of the skin tag as an outpatient when his acute medical issues resolve. Qualifiers: Encounter type: initial encounter Qualified Code(s): S61.219A - Laceration without foreign body of unspecified finger without damage to nail, initial encounter (3) Acute exacerbation of chronic obstructive airways disease Current Visit: Yes Status: Acute Assessment and plan: Improved initially but noted to be more short of breath today, worse on exertion. We will increase the dose of IV steroids and continue scheduled bronchodilators and supplemental oxygen. Oxygen requirements noted to be at baseline, 2.5 L/m via nasal cannula. Supportive care. (4) Tobacco abuse Current Visit: Yes Status: Chronic (5) Depression Current Visit: Yes Status: Chronic Assessment and plan: Resume home medications. rn support services consult for medical noncompliance. Qualifiers: Depression Type: unspecified Qualified Code(s): F32.9 - Major depressive disorder, single episode, unspecified (6) Bipolar disease, chronic Current Visit: Yes Status: Chronic (7) Schizoaffective disorder, bipolar type Current Visit: Yes Status: Chronic (8) Cocaine abuse Current Visit: Yes Status: Chronic - Subjective Interval history: Reports not feeling good today; has increased dyspnea, worse on speaking or movement; O2 requirements at baseline; no cough, fever; has hand tremors and reports they are at his baseline; no nausea, vomiting; - Constitutional Vitals: Temp Pulse Resp BP Pulse Ox 98.5 F 104 20 124/73 97 11/25/16 11:32 11/25/16 11:32 11/25/16 11:32 11/25/16 11:32 11/25/16 11:32 General appearance: Present: mild distress, A&O X 3, answers questions appropriately - Respiratory Respiratory exam: Present: decreased breath sounds (Bilateral decreased air entry. No wheezing or rhonchi.), CTAB. Absent: accessory muscle use, rales, rhonchi, wheezes - Cardiovascular Cardiovascular exam: Present: RRR, +S1, +S2. Absent: diastolic murmur, gallop, rubs, systolic murmur - GI/Abdominal GI/Abdominal exam: Present: normal bowel sounds, soft, no peritoneal signs. Absent: distended, tenderness - Extremities Exam Extremities exam: Present: full ROM, warm, radial pulses palpable and symetrical. Absent: calf tenderness, cyanotic, pedal edema Internal Medicine: Result - Labs CBC & Chem 7: 11/23/16 05:47 11/24/16 04:30 Consult Discharge Plan - Plan [facility]errals: [facility] [Primary Care Provider] -
--- NOTE | 2016-11-25 17:03 | Electrocardiograph Report ---
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
[2016-11-25] MEDS: traZODone 50 MG TABLET PO SCH (21:32)
[2016-11-25] MEDS: Melatonin 3 MG TABLET PO SCH (21:33)
[2016-11-26] MEDS: Ipratropium/Albuterol Neb 3 ML IH SCH ×6 (03:10→23:28)
[2016-11-26] MEDS: MethylPREDNISolone 40 MG/ML VIAL IVP SCH ×3 (03:20→18:14)
[2016-11-26] MEDS: *HR* Heparin 5,000 UNIT/ML VIAL SQ SCH ×2 (06:14→18:16)
[2016-11-26] MEDS: Budesonide/Formoterol 160/4.5 MDI IH SCH ×2 (07:25→20:06)
[2016-11-26] MEDS: ARIPiprazole 10 MG TABLET PO SCH (08:40)
[2016-11-26] MEDS: Nicotine 14 MG PATCH.TD24 TD SCH (08:41)
[2016-11-26] MEDS: Lactobacillus 1 EACH CAP.SPRINK PO SCH (08:41)
[2016-11-26] MEDS: Loratadine 10 MG TABLET PO SCH (08:41)
[2016-11-26] MEDS: hydrOXYzine pamoate 25 MG CAPSULE PO SCH ×2 (08:41→21:27)
[2016-11-26] MEDS: Aspirin Enteric Coated 81 MG Tablet PO SCH (08:41)
[2016-11-26] MEDS: Baclofen 10 MG TABLET PO PRN (08:44)
--- NOTE | 2016-11-26 14:53 | Internal Med Progress Note ---
Date of Encounter: 11/26/16 Time of Encounter: 14:50 - Assessment and plan (1) Acute exacerbation of chronic obstructive airways disease Current Visit: Yes Status: Acute Assessment and plan: worse on exertion. will slowly taper the dose of IV steroids , continue scheduled bronchodilators and supplemental oxygen. Oxygen requirements noted to be at baseline, 2.5 L/m via nasal cannula. Supportive care. (2) Depression Current Visit: Yes Status: Chronic Assessment and plan: Resume home medications. visitor services specialist consult for medical noncompliance. Qualifiers: Depression Type: unspecified Qualified Code(s): F32.9 - Major depressive disorder, single episode, unspecified (3) Bipolar disease, chronic Current Visit: Yes Status: Chronic (4) Suicidal ideation Current Visit: Yes Status: Resolved Assessment and plan: Patient has been evaluated by psychiatric. No current suicidal or homicidal ideation, one-on-one sitter has been discontinued. Patient is cleared for discharge . He needs outpatient psychiatric follow-up with [facility] for counseling and substance abuse rehabilitation. visitor services specialist consult. (5) Schizoaffective disorder, bipolar type Current Visit: Yes Status: Chronic (6) Finger laceration Current Visit: Yes Status: Chronic Assessment and plan: patient sustained a laceration on right fifth finger, while dishwashing about 2- 3 weeks back and currently has a thick skin flap that has grown into a skin tag , which is slightly tender. Orthopedics evaluation appreciated, patient may need excision of the skin tag as an outpatient when his acute medical issues resolve. Qualifiers: Encounter type: initial encounter Qualified Code(s): S61.219A - Laceration without foreign body of unspecified finger without damage to nail, initial encounter - Subjective Interval history: roger seen at the bedside and says that he is still sob when he walks to the bathroom. steroids was increased yesterday to 60 q8. he denies chest pain, he c/o dry cough, no n/v. saturating 97% on 2 l. - Constitutional Vitals: Temp Pulse Resp BP Pulse Ox 98.2 F 65 16 119/74 97 11/26/16 11:44 11/26/16 11:44 11/26/16 11:44 11/26/16 11:44 11/26/16 11:44 General appearance: Present: A&O X 3, answers questions appropriately Exam: neck- supple chest- b/l decreased breath sounds, no wheezing, no creptns cvs-s1 and, s2, no m/r/g abd- soft , non tender, bs are present ext- no edema Internal Medicine: Result - Labs CBC & Chem 7: 11/23/16 05:47 11/24/16 04:30 Consult Discharge Plan - Plan [facility]errals[facility] [Other] - 12/02/16 2:00 pm [facility] [Primary Care Provider] - 12/03/16 9:15 am (This appointment is with the Blue Team.)
[2016-11-26] MEDS: traZODone 50 MG TABLET PO SCH (21:27)
[2016-11-26] MEDS: Melatonin 3 MG TABLET PO SCH (21:27)
[2016-11-27] MEDS: Ipratropium/Albuterol Neb 3 ML IH SCH ×3 (03:45→11:28)
[2016-11-27] MEDS: *HR* Heparin 5,000 UNIT/ML VIAL SQ SCH (06:23)
[2016-11-27] MEDS: MethylPREDNISolone 40 MG/ML VIAL IVP SCH (06:23)
[2016-11-27 07:42] VITALS: BP 127/81
[2016-11-27] MEDS: Budesonide/Formoterol 160/4.5 MDI IH SCH (07:49)
[2016-11-27] MEDS: ARIPiprazole 10 MG TABLET PO SCH (09:05)
[2016-11-27] MEDS: hydrOXYzine pamoate 25 MG CAPSULE PO SCH (09:06)
[2016-11-27] MEDS: Lactobacillus 1 EACH CAP.SPRINK PO SCH (09:06)
[2016-11-27] MEDS: Aspirin Enteric Coated 81 MG Tablet PO SCH (09:06)
[2016-11-27] MEDS: Loratadine 10 MG TABLET PO SCH (09:06)
[2016-11-27] MEDS: Nicotine 14 MG PATCH.TD24 TD SCH (09:06)
[2016-11-27] MEDS: Baclofen 10 MG TABLET PO PRN (09:14)
--- NOTE | 2016-11-27 09:39 | Discharge Summary ---
Date of Encounter: 11/27/16 Time of Encounter: 09:35 - Discharge Diagnosis (1) Acute exacerbation of chronic obstructive airways disease Priority: Primary Status: Acute (2) Depression Priority: Secondary Status: Chronic Qualifiers: Depression Type: unspecified Qualified Code(s): F32.9 - Major depressive disorder, single episode, unspecified (3) Bipolar disease, chronic Priority: Secondary Status: Chronic (4) Suicidal ideation Priority: Primary Status: Resolved (5) Schizoaffective disorder, bipolar type Priority: Secondary Status: Chronic (6) Finger laceration Priority: Secondary Status: Chronic Qualifiers: Encounter type: initial encounter Qualified Code(s): S61.219A - Laceration without foreign body of unspecified finger without damage to nail, initial encounter - Discharge Medications Prescriptions: predniSONE [PredniSONE] See Taper PO DAILY #21 tablet Home Medications: Acetaminophen [Tylenol] 650 mg PO Q6HR PRN 07/06/16 [History] Albuterol Neb [Proventil Neb] 2.5 mg IH QID PRN 07/06/16 [History] Aripiprazole [Abilify] 15 mg PO DAILY 07/06/16 [History] Aspirin [Lo-Dose Aspirin EC] 81 mg PO DAILY 07/06/16 [History] Baclofen [Lioresal] 10 mg PO TID PRN 07/06/16 [History] Budesonide/Formoterol 160/4.5 [Symbicort 160/4.5] 2 puff IH BID 07/06/16 [ History] Dicyclomine [Bentyl] 10 mg PO TID 07/06/16 [History] Docusate [Colace] 200 mg PO HS 07/06/16 [History] Etodolac 400 mg PO BID PRN 07/06/16 [History] Lactobacillus Acidophilus [Acidophilus] 1 cap PO DAILY 07/06/16 [History] Melatonin [Melatin] 9 mg PO HS 07/06/16 [History] Oxybutynin Chloride [Ditropan Xl] 5 mg PO HS 07/06/16 [History] Paroxetine [Paxil] 30 mg PO DAILY 07/06/16 [History] Ranitidine HCl [Acid Utility Assembler] 150 mg PO BID 07/06/16 [History] Tiotropium [Spiriva] 18 mcg IH DAILY 07/06/16 [History] TraZODone 300 mg PO HS 07/06/16 [History] hydrOXYzine HCl [Hydroxyzine HCl] 50 mg PO BID 07/06/16 [History] Albuterol Sulfate [Proair Hfa] 2 puff IH Q4H PRN #1 hfa.aer.ad 07/07/16 [Rx] Loratadine [Allergy Relief] 10 mg PO DAILY 09/22/16 [History] Nicotine Polacrilex [Nicotine Lozenge] 4 mg BC Q2H PRN 09/22/16 [History] Sildenafil Citrate [Viagra] 50 mg PO AD PRN 09/22/16 [History] Potassium Chloride [K-Tab ER] 20 meq PO DAILY #5 tablet.er 11/22/16 [Rx] Propranolol [Inderal] 10 mg PO BID 11/22/16 [History] predniSONE [PredniSONE] See Taper PO DAILY #21 tablet 11/27/16 [Rx] Allergies/Adverse Reactions: Allergies haloperidol [From Haldol] Adverse Reaction (Verified 09/01/16 04:17) Muscle Pain [place] Adverse Reaction (Verified 09/01/16 04:17) Weakness Date of admission: 11/23/16 02:49 [facility] care physician: [facility] Consults: 11/23/16 03:36 Consult to Psychiatry [CONS] Routine Consulting Provider: [facility] [place] Reason for Consult: Schizophrenia, suisidal idea Call Completed: Yes 11/23/16 11:18 Consult to Orthopedic Surgery [CONS] Routine Consulting Provider: [facility]oped[facility] Reason for Consult: Right hand painful swelling/appendage Call Completed: Yes 11/23/16 11:19 Consult to Occupational Therapy [CONS] Routine Comment: Evaluate, develop and implement POC Reason for Consult: Difficulty in ADLs, weakness Consult to Physical Therapy [CONS] Routine Comment: Evaluate, develop and implement POC Reason for Consult: Difficulty in ADLs, weakness Consult to Closing Supervisor [CONS] Routine Reason for SW Consult: Safe discharge, drug abuse, noncompliance Discharging clinician: Magdalena Boucher Anticipated date of discharge: 11/27/16 - Patient Status Disposition: Home, Self-Care Condition: Fair Functional capacity at discharge: independent ambulation Overall status at discharge: patient is back to baseline - Discharge Instructions Instructions: Prednisone (By mouth) Follow Up With: [facility] [Other] - 12/02/16 2:00 pm [facility] [Primary Care Provider] - 12/03/16 9:15 am (This appointment is with the Blue Team.) - Diet and Activity Activity: resume usual activities as tolerated Diet: advance to your usual diet Interval History: 60 year old male with h/o- bipolar disorder, schizoaffective disorder, depression, COPD, admitted with acute COPD and suicidal ideation. Patient reports he quit using his Psychiatric meds and began using IV Cocaine about 2 months ago, and also ran out of COPD meds recently, did not fill his prescriptions. Admits to suicidal thoughts for the last 3 days; reports he lives alone, has no family anywhere, has been having difficulty caring for himself; In ER he was treated with by mouth steroids and nebulizer bronchodilator. After treatment, his symptoms has improved. Patient also mentioned suicideal ideation to ER doctor. He was admitted for COPD exacerbation and suicidal ideation. Acute exacerbation of COPD- likely due to noncompliance; CXR shows no e/o- PNA. he was treated with IV steroids, bronchodilators and o2 supplement. consulted psych, had a sitter, as per psych ---Currently patient mental status is stable he is not suicidal or psychotic. he would benefit from referral [facility] to a dual diagnosis program and substance abuse treatment and to continue with his psychiatric outpatient services. Patient will not need a sitter at this time and he can be discharged from the hospital when medically stable. patient sustained a laceration while dishwashing about 2-3 weeks back and currently has a thick skin flap that has grown into a skin tag, which is slightly tender, ortho was consulted and recommended OP follow up. he is being dc today in oral steroid taper, he has no SI or HI at [facility] time of dc. Hospital course: Mr. Sosa is a 61 year old male - Time Spent with Patient Total time spent providing and/or coordinating discharge services: - Constitutional Vitals: Temp Pulse Resp BP Pulse Ox 98.3 F 91 18 127/81 97 11/27/16 07:42 11/27/16 07:42 11/27/16 07:49 11/27/16 07:42 11/27/16 07:49 General appearance: Present: A&O X 3, answers questions appropriately Exam: General appearance: Present: A&O X 3, answers questions appropriately - Respiratory Respiratory exam: Present: b/l decreased breath sounds Absent: accessory muscle use, rales, rhonchi, wheezes - Cardiovascular Cardiovascular exam: Present: RRR, +S1, +S2. Absent: diastolic murmur, gallop, rubs, systolic murmur - GI/Abdominal GI/Abdominal exam: Present: normal bowel sounds, soft, no peritoneal signs. Absent: distended, tenderness - Extremities Exam Extremities exam: Present: full ROM, warm, radial pulses palpable and symetrical. Absent: calf tenderness, cyanotic, pedal edema
== END 2016-11-27 12:31 | disposition home or self-care (01) ==
LOC: EMEROO 16:45 → SUATTDRO 11-23 02:49 → 3BNU 11-23 02:49 → INTOOBSV 11-23 02:49 → 3BNU 11-23 02:57
PROVIDERS: ADMIT Internal Medicine; ATTEND Internal Medicine

== ENCOUNTER 2016-12-23 20:00 | Inpatient (IN) ==
--- NOTE | 2016-12-23 20:07 | Emergency Department Note ---
Disposition Clinical Impression: Chest pain Qualifiers: Chest pain type: other chest pain Qualified Code(s): R07.89 - Other chest pain Disposition: Admitted As Inpatient Condition: Fair Referrals: NO,PCP [Non-Partnered Physician] - Forms: ED Satisfaction Letter Time of Disposition: 21:02 Chest Pain HPI - General Chief Complaint: ED Chest Pain Stated Complaint: chest pain Time Seen by Provider: 12/23/16 20:04 Source: patient Mode of arrival: EMS Limitations: no limitations Vital Signs Reviewed: Yes Nursing Notes Reviewed: Yes - History of Present Illness HPI Narrative: 61-year-old male with history of emphysema/COPD arrives [facility] emergency Department as a transfer from the [facility] for chest pain. The patient states he is having associated dyspnea as well. Patient states that his chest pain has been ongoing for the past couple weeks. The patient denies any previous history of [place], hypertension, hyperlipidemia, diabetes. The patient is a former smoker. The patient denies any other complaints at this time. He is resting comfortably in bed. Workup at the [facility] demonstrates no acute findings on EKG, troponin within normal limits, no acute findings on BMP as well as CBC. We will obtain a repeat troponin and d-dimer and likely admit the patient to the hospital for further workup. Pt complaint: chest pain Onset (ago): week(s) (2-3) Duration: intermittent Onset: during rest Pain Location: substernal Severity: mild Severity scale (1-10): 2 Quality: tightness Improves with: nothing Worsens with: nothing Associated symptoms: Reports: dyspnea Treatments prior to arrival chest pain: none - Related Data On Oral Contraceptives: No Home Medications Medication Instructions Recorded Confirmed Acetaminophen [Tylenol] 650 mg PO Q6HR PRN 07/06/16 11/22/16 Albuterol Neb [Proventil Neb] 2.5 mg IH QID PRN 07/06/16 11/22/16 Aripiprazole [Abilify] 15 mg PO DAILY 07/06/16 11/22/16 Aspirin [Lo-Dose Aspirin EC] 81 mg PO DAILY 07/06/16 11/22/16 Baclofen [Lioresal] 10 mg PO TID PRN 07/06/16 11/22/16 Budesonide/Formoterol 160/4.5 2 puff IH BID 07/06/16 11/22/16 [Symbicort 160/4.5] Dicyclomine [Bentyl] 10 mg PO TID 07/06/16 11/22/16 Docusate [Colace] 200 mg PO HS 07/06/16 11/22/16 Etodolac 400 mg PO BID PRN 07/06/16 11/22/16 Lactobacillus Acidophilus 1 cap PO DAILY 07/06/16 11/22/16 [Acidophilus] Melatonin [Melatin] 9 mg PO HS 07/06/16 11/22/16 Oxybutynin Chloride [Ditropan Xl] 5 mg PO HS 07/06/16 11/22/16 Paroxetine [Paxil] 30 mg PO DAILY 07/06/16 11/22/16 Ranitidine HCl [Acid Industrial Education Teacher] 150 mg PO BID 07/06/16 11/22/16 Tiotropium [Spiriva] 18 mcg IH DAILY 07/06/16 11/22/16 TraZODone 300 mg PO HS 07/06/16 11/22/16 hydrOXYzine HCl [Hydroxyzine HCl] 50 mg PO BID 07/06/16 11/22/16 Loratadine [Allergy Relief] 10 mg PO DAILY 09/22/16 11/22/16 Nicotine Polacrilex [Nicotine 4 mg BC Q2H PRN 09/22/16 11/22/16 Lozenge] Sildenafil Citrate [Viagra] 50 mg PO AD PRN 09/22/16 11/22/16 Propranolol [Inderal] 10 mg PO BID 11/22/16 11/22/16 Previous Rx's Medication Instructions Recorded Albuterol Sulfate [Proair Hfa] 2 puff IH Q4H PRN #1 hfa.aer.ad 07/07/16 Potassium Chloride [K-Tab ER] 20 meq PO DAILY #5 tablet.er 11/22/16 predniSONE [PredniSONE] See Taper PO DAILY #21 tablet 11/27/16 Allergies Allergy/AdvReac Type Severity Reaction Status Date / Time haloperidol [From Haldol] AdvReac Muscle Pain Verified 09/01/16 04:17 [place] AdvReac Weakness Verified 09/01/16 04:17 All systems ED: reviewed and negative except as stated. Constitutional: Denies: fever, chills, weakness, weight change Eyes: Denies: eye pain, eye discharge, vision change Cardiovascular: Reports: chest pain, dyspnea on exertion. Denies: palpitations Respiratory: Reports: dyspnea. Denies: wheezes, hemoptysis Gastrointestinal: Denies: abdominal pain, nausea, vomiting, diarrhea, constipation, hematemesis, melena, hematochezia Musculoskeletal: Denies: back pain, neck pain, arthralgia, myalgia Integumentary: Denies: rash, abrasion, lesions Neurological: Denies: headache, weakness, numbness, paresthesias, confusion, abnormal gait, vertigo Chest Pain PMH - Past Medical History Medical history: Reports: COPD Surgical history: Reports: cholecystectomy Psychiatric history: Reports: bipolar, depression, schizophrenia - Social History Smoking Status: Current some day smoker Alcohol use: Reports: none Drug use: Reports: other Physical Exam Physical Exam: General: Patient alert, no acute distress, not lethargic HEENT: Head normal inspection, atraumatic, PERRLA, oropharynx grossly intact and normal, trachea midline, no JVD Chest: Nontraumatic, nontender, normal chest rise CV: RRR with no murmurs, rubs, gallops Respiratory: Lungs clear to auscultation bilaterally, mild expiratory wheeze Abdomen: Normal inspection, Normal bowel sounds 4 quadrants, nontender to palpation : Patient deferred Extremities: Normal inspection, full range of motion, appropriate pulses, capillary refill under 2 seconds Neurological: Patient alert and oriented 3, cranial nerves II through XII grossly intact, GCS 15 Skin: Warm, intact, no rashes noted Course Vital Signs Temperature 97.8 F 12/23/16 20:03 Pulse Rate 107 12/23/16 20:03 Respiratory Rate 18 12/23/16 20:03 Blood Pressure 120/81 12/23/16 20:03 O2 Sat by Pulse Oximetry 97 12/23/16 20:03 Temperature 97.8 F 12/23/16 20:03 Pulse Rate 107 12/23/16 20:03 Respiratory Rate 18 12/23/16 20:03 Blood Pressure 120/81 12/23/16 20:03 O2 Sat by Pulse Oximetry 97 12/23/16 20:03 Oxygen Delivery Oxygen Delivery Room Air Chest Pain - Lab Data Lab results reviewed: Yes I reviewed the patient's lab results. Lab Results 12/23/16 12/23/16 12/23/16 Range/Units 20:34 20:34 20:34 PT 11.9 (9.4-12.1) Seconds INR 1.1 APTT 29.9 (26.0-36.0) Seconds D-Dimer 496 (0-500) ng/mLFEU Troponin I 0.00 (0-0.03) ng/mL B-Natriuretic Peptide < 10 (0-100) pg/mL - Radiology Data Radiology results reviewed: Yes I reviewed the patient's radiology results. - EKG Data EKG attestation: Yes I reviewed and interpreted this EKG. EKG results narrative: Heart rate 10 7 bpm. IN interval 164 ms. QTC 365 ms. Normal axis. Sinus tachycardia. No ST elevation or ST depression noted. Similar to EKG on 2016. No acute changes noted. Attestation Statement - Attestation Attestation: Patient was seen with resident physician. I reviewed the history, physical, assessment and plan, and agree with the findings. I also personally evaluated this patient and had [id number] time with this patient. 61-year-old male who was transferred here from the [facility] with a chief complaint of chest pain. 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 Within the middle to left side of his chest lasts approximately 3-7 minutes per episode and comes randomly through the course of the day. It is associated with exertion. He has not had shortness of breath or diaphoresis with this. He denies other complaints at this time. I personally spoke to the [facility] doctor who states that they did not have telemetry room so he is admitted here for rule out [place]. On examination vital signs are stable except for mild tachycardia. Heart is normal with again mild tachycardia but no murmurs. Lungs are clear. Abdomen is soft and nontender. Extremities unremarkable no swelling. Neurologically patient is intact. Skin is unremarkable. ED course initial EKG shows sinus tachycardia with no acute ischemic changes. Results of labs from the [facility] showed a negative troponin. We will repeat these tests in the emergency department and then contact the hospitalist for admission and final disposition the patient. She remained hemodynamically stable while in the emergency department here. Patient remained chest pain-free he did receive aspirin while at the [facility] which is why this was not repeated will use in our emergency department. I personally spoke with the hospitalist at approximately 9:05 PM arranged for admission to the hospital. Agree with the resident physician assessment and plan.
[2016-12-23 20:48] LABS: INR 1.1; Prothrombin Time 11.9 Seconds (9.4-12.1)
[2016-12-23 20:50] LABS: Activated Partial Thrombo Time 29.9 Seconds (26.0-36.0)
[2016-12-23] MEDS ORDERED: Naloxone 0.4 MG/ML INJ IVP PRN (22:52)
[2016-12-23] MEDS ORDERED: Acetaminophen 325 MG TABLET PO PRN (22:52)
--- NOTE | 2016-12-23 23:07 | Internal Med History&Physical ---
Date of Encounter: 12/24/16 Time of Encounter: 22:30 Assessment and Plan (1) Chest pain Current visit: Yes Status: Acute Assess: Mr. Sosa presents with chief complaint of chest pain that he states has been occurring for the past two weeks. Patient describes pain as pressure in chest that is relieved with rest or laying down and exacerbated with exertion. He also reports he has chills and night sweats but denies fever or recent illness. Mr. Sosa denies history of IL or cardiac disease, hypertension, hyperlipidemia , or diabetes. He was seen at the [facility] for this [facility] and referred to Kristin today (). Patient had an Echocardiogram done on 09/22/14 which shows an LVEF of 65%, normal left ventricular size and systolic function, normal diastolic function of the left ventricle, normal right ventricular size and function, no significant valvular dysfunction, no pulmonary hypertension, and all wall segments showed normal motion. Plan: Continuous cardiac telemetry ordered Trend troponins x2 Supplemental O2 ordered SpO2 monitoring ordered D-dimer ordered Lactic acid ordered CBC ordered stat Nitroglycerin 0.4 SL Q5MIN PRN ordered Monitor patient and vital signs Bed rest with bathroom privileges Cardiac diet ordered Qualifiers: Chest pain type: other chest pain Qualified Code(s): R07.89 - Other chest pain; R07.8 - Other chest pain (2) Acute exacerbation of chronic obstructive airways disease Current visit: No Status: Acute Assess: Patient presents with acute exacerbation of chronic obstr airways disease. Patient reports history of COPD and emphysema along with use of home oxygen at 2.5 L. Plan: Supplemental O2 ordered with titration if SpO2 <92% Continuous SPO2 monitoring Continue patient's medications for COPD and emphysema Monitor patient vital signs Bedrest with bathroom privileges and falls precautions ordered due to SOB (3) IV drug abuse Current visit: Yes Status: Acute Assess: Patient reports history of IV drug abuse. Patient also reports most current injection was yesterday with cocaine. Patient currently has 2 erythematous and edematous lesions from injection on left lower leg. Patient also has injection sites on left and right antecubital fossa as well as 7 pinpoint injection sites on the right lower foot near ankle. Patient reports he is currently working on getting into rehabilitation. Patient also reports he is currently hepatitis C positive and would like to hepatitis B and HIV status. Plan: consult to assess patient's home needs and rehabilitation status Hep B panel ordered HIV testing ordered Will assess injection sites for possible cellulitis/infection and order broad- spectrum antibiotics if needed Urine tox screen ordered CBC ordered stat to assess WBC and possible infection status (4) Falls Current visit: Yes Status: Acute Assess: Patient reports history of dizziness when standing as well as history of falls at home. Patient currently resides by himself and relies on [facility] for assistance when possible. Mr. Sosa denies use of any assistive devices for walking. Plan: SW consult to assess patient's home needs for assistive devices PT consult ordered to assess patient's needs for PT Orthostatic BPs ordered daily Falls precautions and bed rest with bathroom privileges ordered Qualifiers: Encounter type: initial encounter Qualified Code(s): W19.XXXA - Unspecified fall, initial encounter (5) DVT prophylaxis Current visit: No Status: Acute Assess: Patient received DVT prophylaxis to inpatient status as well as bedrest due to SOB and dizziness. Plan: Heparin 5,000 units SQ Q8 ordered Internal Medicine - H&P: HPI Chief complaint: Chest pain Admitted From: Emergency Dept Plans for Post Hospital Care: Home History of present illness: Mr. Sosa is a 61 year old male who presents with chief complaint of chest pain that he states has been occurring for the past two weeks. Patient describes pain as pressure in chest that is relieved with rest or laying down and exacerbated with exertion. He also reports he has chills and night sweats but denies fever or recent illness. Mr. Sosa denies history of IL or cardiac disease, hypertension, hyperlipidemia, or diabetes. He was seen at the [facility] for this CP and referred to Kristin today (12/23/16). Patient reports history of COPD , emphysema, and irritable bowel syndrome. He reports he becomes dizzy when standing and uses 2.5L of O2 at home currently. Mr. Sosa states he has not taken his medications for approximately 2 weeks due to being in rehabilitation. Patient states he is an IV drug user of cocaine and heroin, reporting that he injected cocaine yesterday. Patient has several red and edematous lesions present on left lower leg from injections. Mr. Sosa also has injection blood on the antecubital fossa of the left and right arms, as well as 7 pinpoint injection blood near his right ankle. Patient reports he is hepatitis C positive but is unsure of his hepatitis A and B status. He is also unsure of his HIV status and requests testing. He reports a weight loss of 40 pounds over the past 4 months which he attributes to drug use and reduced appetite. Patient had an Echocardiogram done on 09/22/14 which shows an LVEF of 65%, normal left ventricular size and systolic function, normal diastolic function of the left ventricle, normal right ventricular size and function, no significant valvular dysfunction, no pulmonary hypertension, and all wall segments showed normal motion. Mr. Sosa is to be admitted as inpatient status with continuous cardiac monitoring, trended troponins x2, repeat D-dimer, supplemental O2, and falls precautions. Patient requests to find out Hep B and HIV status. Patient to be monitored closely. Patient also has history of suicidal ideations but denies any current ideations, so will consider sitter and possible psych consult if current mental status changes. Past Med Surg Social Fam HX - Past Medical History Source: patient Medical history: COPD, hepatitis (Hepatitis C), other (Emphysema, IBS) Psychiatric history: anxiety, bipolar, depression, schizophrenia - Past Surgical History Surgical History: cholecystectomy - Social History Smoking Status: Current some day smoker Packs per day: 1/2 PPD Smokeless Tobacco Status: No Alcohol use: none Drug use: cocaine, IVDU, other (Heroin) Occupational status: disabled Current living situation: Home - Independent Activity Level: Independent ambulation Recent Out of Country Travel Within the Last 8 Weeks: No Exposure or Possible Exposure to Illness During Travel: No - Family History Mother Adopted: No Race: Family Member Ethnicity: Non- Living Status: Age at : 83 Cause of : Old age Hx Family Endocrine Disorder: Yes (DM) Hx Family Neuromuscular Disorders: No Hx Family Neurologic Disorders: No Hx Family HEENT Disorders: No Hx Family Autoimmune Disorders: No Hx Family Psychosocial Disorders: Yes (Bipolar disorder) Father History Unknown: Yes Race: Family Member Ethnicity: Non- Living Status: Age at : 62 Cause of : Lung cancer Hx Family Cancer: Yes (Lung cancer) Brother Race: Family Member Ethnicity: Non- Living Status: Still Living Hx Family Respiratory Disorders: Yes (Emphysema) Sister Race: Family Member Ethnicity: Non- Living Status: Still Living Hx Family Psychosocial Disorders: Yes (Unknown) Internal Medicine - H&P: Meds Aspirin [Lo-Dose Aspirin EC] 81 mg PO DAILY 07/06/16 [History] Baclofen [Lioresal] 10 mg PO TID PRN 07/06/16 [History] Dicyclomine [Bentyl] 10 mg PO TID PRN 07/06/16 [History] Docusate [Colace] 200 mg PO HS 07/06/16 [History] Lactobacillus Acidophilus [Acidophilus] 1 cap PO DAILY 07/06/16 [History] Melatonin [Melatin] 9 mg PO HS 07/06/16 [History] Oxybutynin Chloride [Ditropan Xl] 5 mg PO HS 07/06/16 [History] Ranitidine HCl [Acid Records Management Technician] 150 mg PO BID 07/06/16 [History] hydrOXYzine HCl [Hydroxyzine HCl] 50 mg PO BID PRN 07/06/16 [History] Loratadine [Allergy Relief] 10 mg PO DAILY 09/22/16 [History] Propranolol [Inderal] 10 mg PO BID 11/22/16 [History] Aripiprazole [Abilify] 5 mg PO DAILY 12/23/16 [History] Aripiprazole [Abilify] 10 mg PO AD 12/23/16 [History] MethylPREDNISolone [MethylPREDNISolone Dose Pack] 4 mg PO PER PKG DI 12/23/16 [ History] Sulfamethoxazole/Trimeth DS [Bactrim DS] 1 each PO BID 12/23/16 [History] Allergies haloperidol [From Haldol] Adverse Reaction (Verified 09/01/16 04:17) Muscle Pain Proctor Adverse Reaction (Verified 09/01/16 04:17) Weakness All Systems PM: A 10-system review of systems was performed and is negative for pertinent findings except as documented above in the HPI. - Constitutional Constitutional: as per HPI, chills, night sweats, weakness, weight loss ( Reports 40 pound weight loss in 4 months), no fever(s) - EENT Eyes: no change in vision, no discharge, no pain, no photophobia Ears: no ear discharge, no ear pain, no tinnitus Nose, mouth and throat: no dysphagia, no nasal discharge, no neck pain, no sore throat - Breasts Breasts: as per HPI - Cardiovascular Cardiovascular ROS IM: as per HPI, chest pain, dyspnea, dyspnea on exertion, other (Dizziness) - Respiratory Respiratory: as per HPI, dyspnea, dyspnea on exertion, wheezing (On expiration) - Gastrointestinal Gastrointestinal: as per HPI, constipation, diarrhea, no abdominal pain, no hematemesis, no hematochezia, no melena, no nausea, no vomiting Additional comments: Patient reports bowel movements alternate between constipation and diarrhea. Patient denies presence of fecal occult blood. - Genitourinary Genitourinary ROS male: as per HPI, urinary frequency - Musculoskeletal Musculoskeletal ROS IM: as per HPI, muscle weakness, no numbness, no tingling - Integumentary Integumentary IM: as per HPI, other (Track blood on left and right antecubital fossas, red and edematous lesions on left lower leg, and 7 pinpoint needle blood on right foot near ankle) - Neurological Neurological ROS: as per HPI, tremor(s), weakness - Psychiatric Psychiatric: as per HPI, anxiety, change in appetite - Endocrine Endocrine IM: as per HPI, excessive sweating (Patient reports night sweats) - Hematologic/Lymphatic Hematologic/Lymphatic: no easy bruising - Allergic/Immunologic Allergic/Immunologic: as per HPI - Constitutional Vitals: Temp Pulse Resp BP Pulse Ox 98 F 107 20 122/81 97 12/23/16 21:56 12/23/16 20:03 12/23/16 21:56 12/23/16 21:56 12/23/16 20:03 General appearance: Present: cooperative, A&O X 3, no acute distress, loss of weight (Reports weight loss of 40 pounds in 4 months), answers questions appropriately - Head Head exam: Present: atraumatic, normocephalic - Eye Eye exam: Present: PERRL, conjuntiva pink, sclera anicteric Pupils: Present: PERRL - ENT ENT exam: Present: normal exam, normal external ear exam - Neck Neck exam general surgery: Present: supple, trachea midline. Absent: lymphadenopathy - Respiratory Respiratory exam: Present: respiratory distress (Mild respiratory distress noted on examination), wheezes. Absent: accessory muscle use, rales, rhonchi Additional comments: Expiratory wheezes noted in all lobes with auscultation. - Cardiovascular Cardiovascular exam: Present: RRR, +S1, +S2. Absent: diastolic murmur, gallop, rubs, systolic murmur - GI/Abdominal GI/Abdominal exam: Present: normal bowel sounds, soft, no peritoneal signs. Absent: distended, tenderness - Rectal Rectal exam: Present: deferred - Additional comments: exam deferred. - Extremities Exam Extremities exam: Present: warm, radial pulses palpable and symetrical. Absent : calf tenderness, cyanotic, pedal edema - Back Exam Back exam: Present: normal inspection - Neurological Exam Neurological exam: Present: CN II-XII intact, oriented X3, no focal deficits. Absent: pronater drift, facial droop, speech deficit - Psychiatric Psychiatric exam: Present: normal affect, normal mood - Skin Skin exam: Present: dry, intact Internal Med - H&P Results - Labs CBC & Chem 7: 12/23/16 20:34 - Diagnostic Studies Chest x-ray Additional comments: Impressions Chest X-Ray 12/23/16 20:01 IMPRESSION: Stable chest x-ray. No acute disease. D/ / Manjinder Thakkar MD / Manjinder Thakkar MD Interpreting Provider: Manjinder Thakkar MD
[2016-12-23] MEDS ORDERED: Nitroglycerin 0.4 MG TAB.SUBL SL PRN (23:32)
[2016-12-23] MEDS: *HR* Heparin 5,000 UNIT/ML VIAL SQ SCH (23:50)
[2016-12-24 00:08] LABS: Basophils % 0.2 %; Eosinophils # 0.1 K/mcL (0.0-0.6); Eosinophils % 1.1 %; Hemoglobin 12.7 g/dL (12.9-16.9); Immature Granulocytes % 0.3 % (0-4); Lymphocytes # 0.6 K/mcL (0.6-4.6); Lymphocytes % 9.3 %; Mean Corpuscular HGB Conc 33.4 g/dL (31.6-35.5); Mean Corpuscular Hemoglobin 30.6 pg (28.0-33.3); Mean Corpuscular Volume 91.6 fL (83.0-100.0); Mean Platelet Volume 11.3 fL (9.4-12.4); Monocytes # 0.2 K/mcL (0.0-1.3); Monocytes % 2.5 %; Neutrophils # 5.6 K/mcL (1.6-8.9); Platelet Count 142 K/mcL (140-400); Red Blood Count 4.15 M/mcL (4.19-5.50); Red Cell Distribution Width 13.2 % (11.5-14.5); Segmented Neutrophils % 86.6 %
[2016-12-24] MEDS ORDERED: hydrOXYzine pamoate 25 MG CAPSULE PO PRN (00:15)
[2016-12-24] MEDS ORDERED: Baclofen 10 MG TABLET PO PRN (00:15)
[2016-12-24 00:29] LABS: Amphetamine Screen,Urine Negative ng/mL (Cutoff=1000); Barbiturate Screen,Urine Negative ng/mL (Cutoff=200); Benzodiazepines Screen,Urine Negative ng/mL (Cutoff=200); Cannabinoid Screen,Urine Negative ng/mL (Cutoff = 50); Cocaine Screen,Urine Positive ng/mL (Cutoff= 300); Opiate Screen,Urine Negative ng/mL (Cutoff=300); Phencyclidine Screen,Urine Negative ng/mL (Cutoff=25)
[2016-12-24 03:37] LABS: BUN/Creatinine Ratio 25 (6-26); Blood Urea Nitrogen 22 mg/dL (8-26); Carbon Dioxide 32 mEq/L (19-29); Chloride 97 mEq/L (98-109); Potassium 4.4 mEq/L (3.5-4.5); Sodium 136 mEq/L (136-145); eGFR For African Americans > 60 (> 60)
[2016-12-24 03:38] LABS: Alanine Aminotransferase 34 Units/L (0-55); Albumin 3.2 g/dL (3.5-5.0); Alkaline Phosphatase 128 Units/L (38-126); Aspartate Amino Transferase 42 Units/L (5-34); Bilirubin,Total 0.5 mg/dL (0.2-1.2); Calcium 9.4 mg/dL (8.6-10.8); Chol/HDL Ratio 2.4 (0-4.9); Cholesterol 166 mg/dL (< 200); Globulin 3.2 g/dL (2.4-3.5); Glucose 201 mg/dL (70-99); HDL Cholesterol 70 mg/dL (40-59); LDL Cholesterol,Calculated 88 mg/dL (0-99); Magnesium 2.1 mg/dL (1.6-2.6); Osmolality,Calculated 291 (280-300); Phosphorous 2.2 mg/dL (2.3-4.7); Total Protein 6.4 g/dL (6.0-8.3); Triglycerides 39 mg/dL (< 150); eGFR For Non-African Americans > 60 (> 60)
[2016-12-24] MEDS ORDERED: 0.9 % Sodium Chloride 1,000 ML IVC ONE (05:12)
[2016-12-24] MEDS: Famotidine 20 MG TABLET PO SCH ×2 (05:34→16:04)
[2016-12-24] MEDS ORDERED: Regadenoson 0.4 MG/5 ML SYRINGE IVP ONE (06:53)
[2016-12-24] MEDS ORDERED: methylPREDNISolone 4 MG TABLET PO SCH ×2 (08:00→21:00)
[2016-12-24] MEDS: *HR* Heparin 5,000 UNIT/ML VIAL SQ SCH ×2 (10:07→16:04)
[2016-12-24] MEDS: Aspirin Enteric Coated 81 MG Tablet PO SCH (10:09)
[2016-12-24] MEDS: ARIPiprazole 5 MG TABLET PO SCH (10:09)
[2016-12-24] MEDS: methylPREDNISolone 4 MG TABLET PO SCH ×3 (10:09→16:04)
[2016-12-24] MEDS: Sulfamethoxazole/Trimeth DS 1 EACH TABLET PO SCH ×2 (10:10→21:07)
[2016-12-24] MEDS: Loratadine 10 MG TABLET PO SCH (10:10)
[2016-12-24] MEDS: Lactobacillus 1 EACH CAP.SPRINK PO SCH (10:10)
[2016-12-24 11:19] LABS: Bilirubin,Urine Negative (Negative); Blood,Urine Negative (Negative); Clarity,Urine Clear (Clear); Color,Urine Yellow (Yellow); Glucose,Urine (UA) 100 mg/dL (Normal); Ketones,Urine Negative (Negative); Leukocyte Esterase,Urine Negative (Negative); Nitrite,Urine Negative (Negative); Protein,Urine Negative (Neg-Trace); Specific Gravity,Urine 1.025 (1.010-1.025); Urobilinogen,Urine Normal (Normal)
--- NOTE | 2016-12-24 11:46 | Nuclear Medicine Stress Report ---
Regadenoson Nuclear Stress Name: Pa Sosa Date of Study: 12/24/2016 Date: 1955 Ht: 70.0 in Medical Record#: [id number] Age: 61 Wt: 146.0 lb Gender: Male Order #: [id number] Location: [facility] Room: [facility] Supervising Provider: Christina Bunch CNP Reading Physician: Jose Antonio Parkinson DO, ALEX GARCIA FASNC Ordering Physician: Berenice Cuenca CNP Primary Care Physician: [facility] Stress Technologist: Trina Valera SIDE DOOR MAN, CCT Dental Equipment Installer And Servicer: Aleksey Hagan Indications: Chest Pain Impression: Pharmacologic stress ECG is negative for ischemia at level of heart rate achieved. Gated EF = 73%. Small sized, moderate intensity, fixed apical inferior defect c/w artifact. Perfusion imaging was negative for ischemia or infarct. History: History of Smoking Stress Test Summary: Stress Test Type: Pharmacologic Regadenoson 0.4mg/5ml given IV Baseline Information: Initial Heart Rate: 108 Blood Pressure: 104/70 Stress Information: Test Terminated Due to (primary): As per protocol Maximum Blood Pressure: 120/68 Maximum Heart Rate: 127 Percent Maximum Heart Rate Achieved: 80 Double Product: 27182 METS Reached: 10 Symptoms: Shortness of breath, No chest symptoms Nuclear Summary: SPECT myocardial perfusion imaging using Tc99m Sestamibi given intravenously was performed at rest and following cardiac stress testing. The resting images were obtained following initial dose of 9.2 mCi. Following stress an additional dose of 35.5 mCi was given at peak exercise or 30 seconds post regadenoson infusion. Medication Given: Time Medication Dose Units Route Findings: Stress Note * Sinus tachycardia * No baseline arrhythmias were noted. * Pharmacologic stress ECG is negative for ischemia at level of heart rate achieved. * No arrhythmias were noted during stress. * Patient had no chest pain during stress. Hemodynamic responses * Normal hemodynamic responses to pharmacologic stress. Study Quality * Study quality is average. Gated EF % * Gated EF = 73%. Left Ventricle * The left ventricle is not dilated. * LVEDV = 98 mL. NORMALS * Normal wall motion. Inferior Perfusion Rest * The apical inferior segment shows a moderate reduction in perfusion. Inferior Perfusion Stress * The apical inferior segment shows a moderate reduction in perfusion. TID * No evidence of transient ischemic dilatation. TID ratio * TID ratio = 1.16. Lung Uptake * There is no evidence of increase lung uptake. Updated by Jose Antonio Parkinson DO, JOSE, ALEX, RAFY on 12/24/2016 11:34:26 AM electronically signed on 12/24/2016 11:40:18 AM with status of Final
--- NOTE | 2016-12-24 15:16 | Internal Med Progress Note ---
Date of Encounter: 12/24/16 Time of Encounter: 12:00 - Assessment and plan (1) Acute exacerbation of chronic obstructive airways disease Current Visit: No Status: Acute Assessment and plan: Continue Duonebs, Steroids, Symbicort (2) Tobacco abuse Current Visit: No Status: Chronic Assessment and plan: NRT, couselled about cessation (3) Chronic bronchitis with acute exacerbation Current Visit: No Status: Acute Assessment and plan: IV Rocephin, Duonebs (4) Schizoaffective disorder, bipolar type Current Visit: No Status: Chronic Assessment and plan: continue home meds (5) Cocaine abuse Current Visit: No Status: Chronic Assessment and plan: counselled about cessation (6) Chest pain Current Visit: Yes Status: Acute Assessment and plan: Stress test negative, LVEF 65%, Troponin negative Qualifiers: Chest pain type: other chest pain Qualified Code(s): R07.89 - Other chest pain; R07.8 - Other chest pain - Time Spent With Patient less than 15 minutes - Subjective Interval history: Awake and alert. Not in any distress. Denies chest pain. Complains of mild shortness of breath. Stress test is negative. No fever. No other acute events or complaints. - Constitutional Vitals: Temp Pulse Resp BP Pulse Ox 98.0 F 78 16 122/52 93 12/24/16 14:52 12/24/16 14:52 12/24/16 14:52 12/24/16 14:52 12/24/16 14:52 General appearance: Present: cooperative, A&O X 3, no acute distress, loss of weight (Reports weight loss of 40 pounds in 4 months), answers questions appropriately - Head Head exam: Present: atraumatic - Neck Neck exam general surgery: Present: supple - Respiratory Respiratory exam: Present: wheezes (mild b/l). Absent: rhonchi Additional comments: good air entry b/l - Cardiovascular Cardiovascular exam: Present: RRR, +S1, +S2 - GI/Abdominal GI/Abdominal exam: Present: soft. Absent: guarding, tenderness - Extremities Exam Extremities exam: Present: radial pulses palpable and symetrical. Absent: cyanotic, pedal edema - Neurological Exam Neurological exam: Present: alert, oriented X3, no focal deficits Internal Medicine: Result - Labs CBC & Chem 7: 12/23/16 20:34 12/24/16 03:15 Labs: BMP 12/24/16 03:15 Sodium 136 Potassium 4.4 Chloride 97 L Carbon Dioxide 32 H BUN 22 Creatinine 0.87 Glucose 201 H Calcium 9.4 Cardiac Enzymes 12/24/16 Range/Units 03:15 Troponin I 0.00 (0-0.03) ng/mL Liver Function 12/24/16 Range/Units 03:15 Total Bilirubin 0.5 (0.2-1.2) mg/dL AST 42 H (5-34) Units/L ALT 34 (0-55) Units/L Alkaline Phosphatase 128 H (38-126) Units/L Albumin 3.2 L (3.5-5.0) g/dL Urine 12/24/16 Range/Units 11:02 Urine Color Yellow (Yellow) Urine Clarity Clear (Clear) Urine pH 6.0 (5.0-8.0) pH Units Ur Specific [place] 1.025 (1.010-1.025) Urine Protein Negative (Neg-Trace) mg/dL Urine Glucose (UA) 100 H (Normal) mg/dL - ABG Interpretation ABG results: PT/INR, D-dimer PT 11.9 Seconds (9.4-12.1) 12/23/16 20:34 D-Dimer 499 ng/mLFEU (0-500) 12/24/16 03:15 Consult Discharge Plan - Plan [facility]errals: [facility] Care Provider[facility] -
[2016-12-24] MEDS: Nicotine 21 MG PATCH.TD24 TD SCH (15:57)
[2016-12-24] MEDS: Ipratropium/Albuterol Neb 3 ML IH SCH ×3 (16:17→23:31)
[2016-12-24] MEDS: Budesonide/Formoterol 160/4.5 MDI IH SCH (20:01)
[2016-12-24] MEDS ORDERED: Melatonin 3 MG TABLET PO SCH (21:00)
--- NOTE | 2016-12-25 | Electrocardiograph Report ---
[place] [address] Test Date: 2016-12-23 Pat Name: Pa Sosa Department: 105 Room: 3B11 Gender: M Soil Analyst: : 1955 Requested By: Kemal Del Valle Order Number: [id number] Reading MD: Chari Daniels Measurements Intervals [place] Rate: 107 P: 85 TN: 164 QRS: 106 QRSD: 101 T: 64 QT: 303 QTc: 365 Interpretive Statements SINUS TACHYCARDIA POSSIBLE RIGHT ATRIAL ENLARGEMENT [0.25mV P WAVE] Indeterminate QRS axis Electronically Signed On 12-24-2016 23:59:10 EDT by Chari Daniels
[2016-12-25] MEDS: *HR* Heparin 5,000 UNIT/ML VIAL SQ SCH ×2 (00:39→08:47)
[2016-12-25] MEDS: Ipratropium/Albuterol Neb 3 ML IH SCH ×3 (03:55→11:13)
[2016-12-25] MEDS ORDERED: methylPREDNISolone 4 MG TABLET PO SCH (08:00)
[2016-12-25] MEDS: Budesonide/Formoterol 160/4.5 MDI IH SCH (08:14)
[2016-12-25] MEDS: Nicotine 21 MG PATCH.TD24 TD SCH (08:47)
[2016-12-25] MEDS: ARIPiprazole 5 MG TABLET PO SCH (08:47)
[2016-12-25] MEDS: Sulfamethoxazole/Trimeth DS 1 EACH TABLET PO SCH (08:47)
[2016-12-25] MEDS: Lactobacillus 1 EACH CAP.SPRINK PO SCH (08:47)
[2016-12-25] MEDS: Loratadine 10 MG TABLET PO SCH (08:47)
[2016-12-25] MEDS: Famotidine 20 MG TABLET PO SCH (08:47)
[2016-12-25] MEDS: Aspirin Enteric Coated 81 MG Tablet PO SCH (08:48)
--- NOTE | 2016-12-25 10:43 | Discharge Summary ---
Date of Encounter: 12/25/16 Time of Encounter: 09:30 - Discharge Diagnosis (1) Acute exacerbation of chronic obstructive airways disease Priority: Primary Status: Resolved Comments: Acute exacerbation of on COPD, now improved with Duonebs and Steroids (2) Tobacco abuse Priority: Secondary Status: Chronic Comments: counselled about cessation, Nicotine patch (3) Chronic bronchitis with acute exacerbation Priority: Secondary Status: Resolved Comments: Improved, d/c home with PO antibiotics (4) Schizoaffective disorder, bipolar type Priority: Secondary Status: Chronic Comments: continue home meds (5) Cocaine abuse Priority: Secondary Status: Chronic Comments: counselled about cessation (6) Chest pain Priority: Secondary Status: Resolved Comments: stress test negative, normal LVEF, normal cardiac workup Qualifiers: Chest pain type: other chest pain Qualified Code(s): R07.89 - Other chest pain; R07.8 - Other chest pain - Discharge Medications Prescriptions: Amoxicillin/Clavulanate [Augmentin] 875 mg PO BIDWM 7 Days Budesonide/Formoterol 160/4.5 [Symbicort 160/4.5] 1 puff IH BIDR #1 inhaler Nicotine Patch [Nicoderm] 21 mg TD DAILY 30 Days predniSONE [Prednisone] 10 mg PO DAILY 7 Days Home Medications: Aspirin [Lo-Dose Aspirin EC] 81 mg PO DAILY 07/06/16 [History] Baclofen [Lioresal] 10 mg PO TID PRN 07/06/16 [History] Dicyclomine [Bentyl] 10 mg PO TID PRN 07/06/16 [History] Docusate [Colace] 200 mg PO HS 07/06/16 [History] Lactobacillus Acidophilus [Acidophilus] 1 cap PO DAILY 07/06/16 [History] Melatonin [Melatin] 9 mg PO HS 07/06/16 [History] Oxybutynin Chloride [Ditropan Xl] 5 mg PO HS 07/06/16 [History] Ranitidine HCl [Acid Electrical Line Worker] 150 mg PO BID 07/06/16 [History] hydrOXYzine HCl [Hydroxyzine HCl] 50 mg PO BID PRN 07/06/16 [History] Loratadine [Allergy Relief] 10 mg PO DAILY 09/22/16 [History] Propranolol [Inderal] 10 mg PO BID 11/22/16 [History] Aripiprazole [Abilify] 5 mg PO DAILY 12/23/16 [History] Aripiprazole [Abilify] 10 mg PO AD 12/23/16 [History] Amoxicillin/Clavulanate [Augmentin] 875 mg PO BIDWM 7 Days 12/25/16 [Rx] Budesonide/Formoterol 160/4.5 [Symbicort 160/4.5] 1 puff IH BIDR 12/25/16 [ History] Budesonide/Formoterol 160/4.5 [Symbicort 160/4.5] 1 puff IH BIDR #1 inhaler 02/03 [Rx] Ipratropium/Albuterol Neb [Duoneb] 2.5 mg IH Q3-6H PRN 12/25/16 [History] Nicotine Patch [Nicoderm] 21 mg TD DAILY 30 Days 12/25/16 [Rx] predniSONE [Prednisone] 10 mg PO DAILY 7 Days 12/25/16 [Rx] Allergies/Adverse Reactions: Allergies haloperidol [From Haldol] Adverse Reaction (Verified 09/01/16 04:17) Muscle Pain [place] Adverse Reaction (Verified 09/01/16 04:17) Weakness Procedures/tests Complete & Pending: Procedures Performed prior 72 hours Category Date Time Status NM gaudencio perf SPECT multi [NM] Routine Exams 12/24/16 00:24 Taken EV echocardiogram Routine Y 12/24/16 05:14 Completed SP pharm nuclear stress Routine Y 12/24/16 08:15 Completed Date of admission: 12/23/16 21:39 [facility] care [facility] Consults: 12/23/16 22:40 Consult to Skiver Operator [CONS] Routine Reason for SW Consult: Patient is IV drug user, uses oxygen at home as well. Patient reports hx of dizziness/falls so assess for assistive walking device as well. Confirm rehabilitation status and information. 12/23/16 23:00 Consult to Physical Therapy [CONS] Routine Comment: Evaluate, develop and implement POC Reason for Consult: Patient reports history of dizziness/falls and has history of COPD/emphysema. Assess for PT needs. Discharging clinician: Jadiel Teixeira Anticipated date of discharge: 12/25/16 - Patient Status Disposition: Home, Self-Care Condition: Fair Functional capacity at discharge: independent ambulation Overall status at discharge: patient is back to baseline - Discharge Instructions Instructions: Mood Disorders (DC), Chronic Obstructive Pulmonary Disease (DC) Follow Up With: [facility] [Primary Care Provider] - - Diet and Activity Activity: resume usual activities as tolerated, wear oxygen at all times Diet: advance to your usual diet Interval History: Patient presented with chest pain. Stress test was done by cardiology and was negative. LVEF 65%. Troponin negative. Treated for COPD exacerbation and acute bronchitis. Tolerated Duonebs and Soleumedrol well. Continued on 2L NC. Feels better now and wants to return to the SNF at [place]. Counselled extensively about smoking cessation and also about illicit drug use. Patient understood and agreed. No unanswered questions. Will need to continue Symbicort, Duonebs, O2 and steroids at home. Hospital course: Mr. Sosa is a 61 year old male. Patient presented with chest pain. Stress test was done by cardiology and was negative. LVEF 65%. Troponin negative. Treated for COPD exacerbation and acute bronchitis. Tolerated Duonebs and Soleumedrol well. Continued on 2L NC. Feels better now and wants to return to the SNF at [place]. Counselled extensively about smoking cessation and also about illicit drug use. Patient understood and agreed. No complications. Explained about condition and plan of care. No unanswered questions. Will need to continue Symbicort, Duonebs, O2 and steroids at home. Time spent discussing smoking cessation with patient: 3 to 10 minutes - Time Spent with Patient Total time spent providing and/or coordinating discharge services: Less than 30 minutes - Constitutional Vitals: Temp Pulse Resp BP Pulse Ox 97.9 F 88 17 107/69 97 12/25/16 07:20 12/25/16 07:20 12/25/16 08:16 12/25/16 07:20 12/25/16 08:16 General appearance: Present: cooperative, A&O X 3, no acute distress, loss of weight (Reports weight loss of 40 pounds in 4 months), answers questions appropriately - ENT ENT exam: Present: mucous membranes moist - Neck Neck exam general surgery: Present: supple - Respiratory Respiratory exam: Present: CTAB. Absent: rhonchi, wheezes - Cardiovascular Cardiovascular exam: Present: RRR, +S1, +S2 - GI/Abdominal GI/Abdominal exam: Present: soft. Absent: guarding, tenderness - Extremities Exam Extremities exam: Present: radial pulses palpable and symetrical. Absent: cyanotic, pedal edema - Neurological Exam Neurological exam: Present: alert, oriented X3, no focal deficits - VTE Deep Vein Thrombosis/Pulmonary Embolism Present on Admission: Yes
[2016-12-25 11:03] VITALS: BP 109/68
[2016-12-26] MEDS ORDERED: methylPREDNISolone 4 MG TABLET PO SCH (08:00)
[2016-12-27] MEDS ORDERED: methylPREDNISolone 4 MG TABLET PO SCH (08:00)
[2016-12-28] MEDS ORDERED: methylPREDNISolone 4 MG TABLET PO SCH (08:00)
[2016-12-29] MEDS ORDERED: ARIPiprazole 10 MG TABLET PO SCH (09:00)
== END 2016-12-25 14:05 | disposition home or self-care (01) | DRG 192 ==
LOC: EMEROO 20:00 → 3BNU 20:00 → OBSVTOIN 21:39 → 3BNU 22:14
PROVIDERS: ADMIT Internal Medicine; ATTEND Nurse Practitioner Family

== ENCOUNTER 2017-01-21 03:09 | Inpatient (IN) ==
[2017-01-21] MEDS ORDERED: methylPREDNISolone 125 MG/2 ML VIAL IVP ONE (03:12)
[2017-01-21] MEDS ORDERED: Ipratropium/Albuterol Neb 3 ML IH ONE (03:12)
[2017-01-21] MEDS ORDERED: Ipratropium/Albuterol Neb 3 ML ONE (03:15)
--- NOTE | 2017-01-21 03:20 | Emergency Department Note ---
Disposition Clinical Impression: Acute exacerbation of chronic obstructive airways disease, Cocaine abuse, Respiratory insufficiency Fever Qualifiers: Fever type: unspecified Qualified Code(s): R50.9 - Fever, unspecified Disposition: Admitted As Inpatient Condition: Fair [facility]errals: [facility] [Primary Care Provider] - Forms: ED Satisfaction Letter Time of Disposition: 04:40 SOB HPI - General Chief Complaint: ED Shortness of Breath/Dyspnea Stated Complaint: SOB Time Seen by Provider: 01/21/17 03:12 Source: patient, EMS Mode of arrival: EMS Limitations: no limitations Nursing Notes Reviewed: Yes Vital Signs Reviewed: Yes - History of Present Illness Patient presents to the ED the chief complaint of shortness of breath. Patient has a history of home oxygen dependent COPD at 2 L. Called EMS tonight for increasing shortness of breath. When EMS arrived his oxygen saturations were 91%. They administered 1 albuterol nebulized treatment and sats improved to 98%. Patient reports that over the past few days he has had an increase in his cough and has become productive with thick yellow sputum. Denies any known fever. States that he feels very tired, like his COPD is acting up. He has been admitted previously and placed on BiPAP for his COPD but no intubations. He denies any chest pain, abdominal pain, diarrhea or rash. He has had nausea and vomiting which she attributes to the amount of phlegm that he has had. He states his last admission was a few months ago. He also finished a steroid taper last week for a COPD flareup. Patient does report that he has used cocaine several times over the last several days with the most recent about 24 hours ago. He does inject into his right upper extremity. Denies any heroine use or other drug use. - Related Data Home Medications Medication Instructions Recorded Confirmed Aspirin [Lo-Dose Aspirin EC] 81 mg PO DAILY 07/06/16 01/21/17 Baclofen [Lioresal] 10 mg PO TID PRN 07/06/16 01/21/17 Dicyclomine [Bentyl] 10 mg PO TID PRN 07/06/16 01/21/17 Docusate [Colace] 200 mg PO HS 07/06/16 01/21/17 Lactobacillus Acidophilus 1 cap PO DAILY 07/06/16 01/21/17 [Acidophilus] Melatonin [Melatin] 9 mg PO HS 07/06/16 01/21/17 Oxybutynin Chloride [Ditropan Xl] 5 mg PO HS 07/06/16 01/21/17 Ranitidine HCl [Acid Mate Ship] 150 mg PO BID 07/06/16 01/21/17 hydrOXYzine HCl [Hydroxyzine HCl] 50 mg PO BID PRN 07/06/16 01/21/17 Loratadine [Allergy Relief] 10 mg PO DAILY 09/22/16 01/21/17 Propranolol [Inderal] 10 mg PO BID 11/22/16 01/21/17 Aripiprazole [Abilify] 5 mg PO DAILY 12/23/16 01/21/17 Ipratropium/Albuterol Neb [Duoneb] 2.5 mg IH Q3-6H PRN 12/25/16 01/21/17 Previous Rx's Medication Instructions Recorded Budesonide/Formoterol 160/4.5 1 puff IH BIDR #1 inhaler 12/25/16 [Symbicort 160/4.5] Nicotine Patch [Nicoderm] 21 mg TD DAILY 30 Days 12/25/16 Allergies Allergy/AdvReac Type Severity Reaction Status Date / Time haloperidol [From Haldol] AdvReac Muscle Pain Verified 01/21/17 03:41 [place] AdvReac Weakness Verified 01/21/17 03:41 Constitutional: Denies: fever Cardiovascular: Denies: chest pain Respiratory: Reports: cough, dyspnea, wheezes, sputum production Gastrointestinal: Reports: nausea, vomiting. Denies: abdominal pain Musculoskeletal: Denies: back pain Past Medical History - Past Medical History Attestation: Yes The following information was validated with the patient. Source: patient Medical history: Reports: COPD, hepatitis (Hepatitis C), other (Emphysema, IBS) Surgical history: Reports: cholecystectomy Psychiatric history: Reports: anxiety, bipolar, depression, schizophrenia - Social History Smoking Status: Current some day smoker Smokeless Tobacco Status: No Alcohol use: Reports: none Drug use: Reports: cocaine, IV Drug Use, other (Heroin) Physical Exam - General Limitations: no limitations General appearance: alert, cachectic - Head Head exam: atraumatic, normocephalic, normal inspection - Eye Eye exam: Present: normal appearance, PERRL, EOMI - Chest Chest inspection: Present: normal inspection, symmetric chest wall rise - Respiratory Respiratory exam: Present: respiratory distress (Moderate with subcostal retractions), wheezes (Diffuse inspiratory and expiratory wheezing with coarse breath sounds. No obvious rhonchi). Absent: normal lung sounds bilaterally - Cardiovascular Cardiovascular exam: Present: tachycardia. Absent: systolic murmur - Abdominal Exam Abdominal exam: Present: soft, Non-Tender - Neurological Exam Neurological exam: Present: alert, oriented X3 - Skin Skin exam: Present: intact, normal color, diaphoresis Course - Reevaluation(s) Reevaluation #1: Chest x-ray negative for pneumonia. Did show emphysematous change. Patient tolerating BiPAP well. He is sleepy, but he arouses easily and answers questions. States that he is just tired and wants to go to sleep. Work of breathing is significantly decreased, although not normal. We will admit him to the hospitalist service for respiratory insufficiency and COPD exacerbation. Vital Signs Temperature 101 F H 01/21/17 03:10 Pulse Rate 130 01/21/17 03:10 Respiratory Rate 28 01/21/17 03:10 Blood Pressure 115/70 01/21/17 03:10 O2 Sat by Pulse Oximetry 99 01/21/17 03:10 Temperature 101 F H 01/21/17 03:10 Pulse Rate 122 01/21/17 04:22 Respiratory Rate 22 01/21/17 04:22 Blood Pressure 102/68 01/21/17 04:22 O2 Sat by Pulse Oximetry 95 01/21/17 04:22 Oxygen Delivery Oxygen Delivery Bipap Shortness of Breath/Dyspnea - Medical Records Medical records reviewed: Yes I reviewed the patient's medical records. - Lab Data Lab results reviewed: Yes I reviewed the patient's lab results. Result diagrams: 01/21/17 03:20 01/21/17 03:20 Lab Results 01/21/17 01/21/17 01/21/17 Range/Units 03:20 03:20 03:20 WBC 11.6 H (4.3-11.1) K/mcL RBC 4.16 L (4.19-5.50) M/mcL Hgb 12.4 L (12.9-16.9) g/dL Hct 37.0 L (37.5-50.1) % MCV 88.9 (83.0-100.0) fL MCH 29.8 (28.0-33.3) pg MCHC 33.5 (31.6-35.5) g/dL RDW 12.5 (11.5-14.5) % Plt Count 105 L (140-400) K/mcL MPV 10.0 (9.4-12.4) fL Immature Gran % 0.5 (0-4) % Seg Neutrophils % 76.5 % Lymphocytes % 14.2 % Monocytes % 8.3 % Eosinophils % 0.4 % Basophils % 0.1 % Neutrophils # 8.9 (1.6-8.9) K/mcL Lymphocytes # 1.7 (0.6-4.6) K/mcL Monocytes # 1.0 (0.0-1.3) K/mcL Eosinophils # 0.1 (0.0-0.6) K/mcL Basophils # 0.0 (0.0-0.2) K/mcL Reactive Lymphocytes Present A (Not Present) Toxic Granulation Present A (Not Present) Platelet Estimate Decreased L (Normal) Sodium 132 L (136-145) mEq/L Potassium 3.7 (3.5-4.5) mEq/L Chloride 92 L (98-109) mEq/L Carbon Dioxide 35 H (19-29) mEq/L BUN 21 (8-26) mg/dL Creatinine 0.69 L (0.72-1.25) mg/dL Est GFR ( Amer) > 60 (> 60) Est GFR (Non-Af Amer) > 60 (> 60) BUN/Creatinine Ratio 30 H (6-26) Glucose 124 H (70-99) mg/dL Calculated Osmolality 278 L (280-300) Lactic Acid 1.2 (0.5-2.2) mmol/L Calcium 8.7 (8.6-10.8) mg/dL Troponin I (0-0.03) ng/mL 01/21/17 Range/Units 03:20 WBC (4.3-11.1) K/mcL RBC (4.19-5.50) M/mcL Hgb (12.9-16.9) g/dL Hct (37.5-50.1) % MCV (83.0-100.0) fL MCH (28.0-33.3) pg MCHC (31.6-35.5) g/dL RDW (11.5-14.5) % Plt Count (140-400) K/mcL MPV (9.4-12.4) fL Immature Gran % (0-4) % Seg Neutrophils % % Lymphocytes % % Monocytes % % Eosinophils % % Basophils % % Neutrophils # (1.6-8.9) K/mcL Lymphocytes # (0.6-4.6) K/mcL Monocytes # (0.0-1.3) K/mcL Eosinophils # (0.0-0.6) K/mcL Basophils # (0.0-0.2) K/mcL Reactive Lymphocytes (Not Present) Toxic Granulation (Not Present) Platelet Estimate (Normal) Sodium (136-145) mEq/L Potassium (3.5-4.5) mEq/L Chloride (98-109) mEq/L Carbon Dioxide (19-29) mEq/L BUN (8-26) mg/dL Creatinine (0.72-1.25) mg/dL Est GFR ( Amer) (> 60) Est GFR (Non-Af Amer) (> 60) BUN/Creatinine Ratio (6-26) Glucose (70-99) mg/dL Calculated Osmolality (280-300) Lactic Acid (0.5-2.2) mmol/L Calcium (8.6-10.8) mg/dL Troponin I 0.01 (0-0.03) ng/mL - Radiology Data Radiology results reviewed: Yes I reviewed the patient's radiology results. - EKG Data EKG attestation: Yes I reviewed and interpreted this EKG. EKG results narrative: Sinus tach, rate 133, SC interval 140, QRS 90, QTC 356, right axis deviation, similar morphology to previous S.B.A.R. - S.B.A.R. Situation: Demographics, MOA Background: Presenting Complaint, Relevant PMH, Meds, & Allergies Assessment: Vital Signs, Course and respsone to treatment, Exam Concerns, Patient/Family Expectation, Pertinant Lab Results, Outstanding Labs Recommendation: Barrier(s) to disposition, Recommendation based on pending studies, treatments, or consults S.B.A.R. Report Given to: Dr. Riddhi ReneBBell Repor Time: 04:55
--- NOTE | 2017-01-21 03:24 | Emergency Department Note ---
START Narrative - START START: I examined this patient and my medical decision-making was reviewed with the IRON PLASTIC BULLET MAKER/PA/Advanced Practice Nurse/Resident Physician. I agree with the documented findings, disposition and treatment plan as described except to the extent set forth below. ED attending note: Patient seen with emergency medicine resident . Please see a copy of his note for details of the H&P, evaluation, management and disposition of this patient. We independently had [id number] contact with the patient Briefly: [id number] male with history of COPD brought in with hypoxia and shortness breath. Patient has a history of active IV drug abuse using cocaine. Comes in short of breath and hypoxic and tachypnea. With expiratory wheezes prolonged expirations and intercostal retractions. Sats in the low 80s. Improved with supplemental oxygen. We will get BiPAP and given duonebs here. Provided 45 minutes critical care service on this patient. Chest x-ray screening labs are otherwise pending disposition pending
[2017-01-21 03:36] LABS: Basophils % 0.1 %; Eosinophils # 0.1 K/mcL (0.0-0.6); Eosinophils % 0.4 %; Hemoglobin 12.4 g/dL (12.9-16.9); Immature Granulocytes % 0.5 % (0-4); Lymphocytes # 1.7 K/mcL (0.6-4.6); Lymphocytes % 14.2 %; Mean Corpuscular HGB Conc 33.5 g/dL (31.6-35.5); Mean Corpuscular Hemoglobin 29.8 pg (28.0-33.3); Mean Corpuscular Volume 88.9 fL (83.0-100.0); Monocytes % 8.3 %; Neutrophils # 8.9 K/mcL (1.6-8.9); Platelet Count 105 K/mcL (140-400); Red Blood Count 4.16 M/mcL (4.19-5.50); Red Cell Distribution Width 12.5 % (11.5-14.5); Segmented Neutrophils % 76.5 %
[2017-01-21 03:49] LABS: BUN/Creatinine Ratio 30 (6-26); Blood Urea Nitrogen 21 mg/dL (8-26); Calcium 8.7 mg/dL (8.6-10.8); Carbon Dioxide 35 mEq/L (19-29); Chloride 92 mEq/L (98-109); Glucose 124 mg/dL (70-99); Osmolality,Calculated 278 (280-300); Potassium 3.7 mEq/L (3.5-4.5); eGFR For African Americans > 60 (> 60); eGFR For Non-African Americans > 60 (> 60)
[2017-01-21 03:50] LABS: Sodium 132 mEq/L (136-145)
[2017-01-21 04:11] LABS: Platelet Estimate Decreased (Normal); Reactive Lymphocytes Present (Not Present); Toxic Granulation Present (Not Present)
[2017-01-21] MEDS ORDERED: 0.9 % Sodium Chloride 1,000 ML IVC ONE (04:29)
[2017-01-21] MEDS ORDERED: Levofloxacin 750 MG/150 ML 750 MG/150 ML BAG IVPB ONE (04:54)
[2017-01-21] MEDS ORDERED: Naloxone 0.4 MG/ML INJ IVP PRN (07:24)
[2017-01-21] MEDS ORDERED: Ondansetron 4 MG/2 ML VIAL IVP PRN (07:24)
[2017-01-21] MEDS ORDERED: *HR* Morphine 2 MG/ML SYRINGE IVP PRN (07:24)
[2017-01-21] MEDS ORDERED: Acetaminophen 325 MG TABLET PO PRN (07:24)
[2017-01-21] MEDS ORDERED: Baclofen 10 MG TABLET PO PRN (07:26)
[2017-01-21] MEDS: Budesonide/Formoterol 160/4.5 MDI IH SCH ×2 (08:05→21:28)
[2017-01-21 08:06] LABS: INR 1.5; Prothrombin Time 15.8 Seconds (9.4-12.1)
[2017-01-21] MEDS: Ipratropium/Albuterol Neb 3 ML IH SCH ×5 (08:06→23:36)
--- NOTE | 2017-01-21 08:36 | Internal Med History&Physical ---
Date of Encounter: 01/21/17 Time of Encounter: 07:35 Assessment and Plan (1) Acute exacerbation of chronic obstructive airways disease Current visit: No Status: Acute Acute exacerbation of COPD Continue DuoNeb breathing treatment, Solu-Medrol, Symbicort Empiric IV Rocephin Continue 2 L nasal cannula, BiPAP as needed Continuous pulse ox, telemetry (2) Chronic bronchitis with acute exacerbation Current visit: No Status: Acute Acute on chronic bronchitis DuoNeb's breathing treatment, empiric IV Rocephin Sputum culturessputum cultures pending (3) Tobacco abuse Current visit: No Status: Chronic Counseling for cessation, nicotine patch (4) Schizoaffective disorder, bipolar type Current visit: No Status: Chronic Continue home meds - Abilify (5) Cocaine abuse Current visit: No Status: Chronic IV drug use, counseled about cessation (6) Chronic hepatitis C Current visit: Yes Status: Chronic Qualifiers: Hepatic coma status: without hepatic coma Qualified Code(s): B18.2 - Chronic viral hepatitis C (7) DVT prophylaxis Current visit: No Status: Acute Continue heparin subcutaneous Internal Medicine - H&P: HPI Chief complaint: Shortness of breath Admitted From: Emergency Dept History of present illness: Mr. Sosa is a 61 year old male with past medical history of COPD, chronic bronchitis, schizoaffective disorder bipolar type, history of cocaine use and chronic hepatitis C. He presents to the ED with complaints of shortness of breath. On examination patient is awake and alert. Not in any distress. Able to provide HISTORY. Patient was brought to the ED via EMS. Patient states his shortness of breath for about 2 days ago and has gradually been worsening. He complains of fatigue and says he feels tired. States this feels when his COPD is flaring up. Patient also complains of a productive thick yellow colored sputum. Denies fever. Patient states he has tried his breathing treatments at home but has not helped. Symptoms are worse with exertion. No alleviating factors. No other associated symptoms. Patient denies chest pain, denies palpitations denies lightheadedness denies abdominal pain and denies diarrhea or any other problems. Initial oxygen saturation was 91%. He has been given 1 breathing treatment with albuterol, oxygen saturation improved. Patient also does have a history of cocaine use most recently being about 24 hours ago and he does inject and right upper extremity. He has been placed on BiPAP in the past. He continues to smoke. Chest x-ray done in the ED is negative for pneumonia shows emphysematous change. EKG shows sinus tachycardia, with no change compared to previous EKG. Patient is being admitted for COPD exacerbation. Patient has been explained about his condition and plan of care. He understood and agreed. He has been counseled about smoking cessation and has also been advised to abstain from illicit drug use. He understood and agreed. No unanswered questions. CODE STATUS full code. Past Med Surg Social Fam HX - Past Medical History Medical history: COPD, hepatitis, other Psychiatric history: anxiety, bipolar, depression, schizophrenia - Past Surgical History Surgical History: cholecystectomy - Social History Smoking Status: Current some day smoker Smokeless Tobacco Status: No Alcohol use: none Drug use: cocaine, IV Drug Use, other - Family History Mother Adopted: No Family Member Ethnicity: Non- Living Status: Hx Family Cardiac Disorders: Yes Hx Family Respiratory Disorders: Yes (dad emphezema) Hx Family Cancer: Yes (lung [place]) Hx Family GI Disorders: No Hx Family Endocrine Disorder: Yes (DM) Hx Family Neuromuscular Disorders: No Hx Family Neurologic Disorders: No Hx Family HEENT Disorders: No Hx Family Autoimmune Disorders: No Father Family Member Ethnicity: Non- Living Status: Hx Family Cancer: Yes (Lung cancer) Brother Family Member Ethnicity: Non- Living Status: Still Living Hx Family Respiratory Disorders: Yes (Emphysema) Sister Family Member Ethnicity: Non- Living Status: Still Living Internal Medicine - H&P: Meds Aspirin [Lo-Dose Aspirin EC] 81 mg PO DAILY 07/06/16 [History] Baclofen [Lioresal] 10 mg PO TID PRN 07/06/16 [History] Dicyclomine [Bentyl] 10 mg PO TID PRN 07/06/16 [History] Docusate [Colace] 200 mg PO HS 07/06/16 [History] Lactobacillus Acidophilus [Acidophilus] 1 cap PO DAILY 07/06/16 [History] Melatonin [Melatin] 9 mg PO HS 07/06/16 [History] Oxybutynin Chloride [Ditropan Xl] 5 mg PO HS 07/06/16 [History] Ranitidine HCl [Acid Centrifugal Extractor Operator] 150 mg PO BID 07/06/16 [History] hydrOXYzine HCl [Hydroxyzine HCl] 50 mg PO BID PRN 07/06/16 [History] Loratadine [Allergy Relief] 10 mg PO DAILY 09/22/16 [History] Propranolol [Inderal] 10 mg PO BID 11/22/16 [History] Aripiprazole [Abilify] 5 mg PO DAILY 12/23/16 [History] Budesonide/Formoterol 160/4.5 [Symbicort 160/4.5] 1 puff IH BIDR #1 inhaler 02/03 [Rx] Ipratropium/Albuterol Neb [Duoneb] 2.5 mg IH Q3-6H PRN 12/25/16 [History] Nicotine Patch [Nicoderm] 21 mg TD DAILY 30 Days 12/25/16 [Rx] Allergies haloperidol [From Haldol] Adverse Reaction (Verified 01/21/17 03:41) Muscle Pain [place] Adverse Reaction (Verified 01/21/17 03:41) Weakness All Systems PM: A 10-system review of systems was performed and is negative for pertinent findings except as documented above in the HPI. - Constitutional Constitutional: fatigue, weakness - EENT Eyes: no blurry vision - Cardiovascular Cardiovascular ROS IM: dyspnea, dyspnea on exertion, orthopnea, no chest pain, no diaphoresis, no lightheadedness, no palpitations, no syncope - Respiratory Respiratory: cough, dyspnea, dyspnea on exertion, wheezing, chest congestion, excessive phlegm production, no hemoptysis - Gastrointestinal Gastrointestinal: no abdominal pain, no cramping, no diarrhea, no melena, no vomiting - Genitourinary Genitourinary ROS male: no dysuria - Musculoskeletal Musculoskeletal ROS IM: no arthralgias - Neurological Neurological ROS: no abnormal gait, no abnormal speech, no dizziness, no focal weakness, no loss of vision - Constitutional Vitals: Temp Pulse Resp BP Pulse Ox 98.4 F 103 20 111/72 98 01/21/17 07:06 01/21/17 07:06 01/21/17 07:06 01/21/17 07:06 01/21/17 07:06 General appearance: Present: mild distress, A&O X 3, underweight, answers questions appropriately - Head Head exam: Present: atraumatic - Eye Eye exam: Present: EOMI - Neck Neck exam general surgery: Present: supple - Respiratory Respiratory exam: Present: accessory muscle use, wheezes (Mild bilateral). Absent: chest wall tenderness, rales, tachypnea - Cardiovascular Cardiovascular exam: Present: +S1, +S2, tachycardia - GI/Abdominal GI/Abdominal exam: Present: soft. Absent: distended, guarding, tenderness - Extremities Exam Extremities exam: Present: warm, radial pulses palpable and symetrical. Absent : cyanotic, pedal edema - Neurological Exam Neurological exam: Present: alert, oriented X3, no focal deficits Internal Med - H&P Results - Labs CBC & Chem 7: 01/21/17 03:20 01/21/17 03:20
[2017-01-21] MEDS: Loratadine 10 MG TABLET PO SCH (08:56)
[2017-01-21] MEDS: Aspirin Enteric Coated 81 MG Tablet PO SCH (08:56)
[2017-01-21] MEDS: Nicotine 21 MG PATCH.TD24 TD SCH (08:57)
[2017-01-21] MEDS: Famotidine 20 MG TABLET PO SCH ×2 (08:57→22:04)
[2017-01-21] MEDS: Lactobacillus 1 EACH CAP.SPRINK PO SCH (08:57)
[2017-01-21] MEDS: ARIPiprazole 5 MG TABLET PO SCH (08:57)
[2017-01-21] MEDS: methylPREDNISolone 125 MG/2 ML VIAL IVP SCH ×2 (08:57→15:23)
[2017-01-21] MEDS: *HR* Heparin 5,000 UNIT/ML VIAL SQ SCH (16:58)
[2017-01-21] MEDS: Melatonin 3 MG TABLET PO SCH (22:04)
[2017-01-22] MEDS: methylPREDNISolone 125 MG/2 ML VIAL IVP SCH ×3 (01:03→16:24)
[2017-01-22] MEDS: Ipratropium/Albuterol Neb 3 ML IH SCH ×6 (04:08→23:30)
[2017-01-22 05:47] LABS: Basophils % 0.1 %; Hematocrit 32.8 % (37.5-50.1); Hemoglobin 10.9 g/dL (12.9-16.9); Immature Granulocytes % 0.4 % (0-4); Lymphocytes # 0.6 K/mcL (0.6-4.6); Lymphocytes % 5.6 %; Mean Corpuscular HGB Conc 33.2 g/dL (31.6-35.5); Mean Corpuscular Hemoglobin 30.2 pg (28.0-33.3); Mean Corpuscular Volume 90.9 fL (83.0-100.0); Mean Platelet Volume 10.4 fL (9.4-12.4); Monocytes # 0.4 K/mcL (0.0-1.3); Monocytes % 3.4 %; Neutrophils # 9.5 K/mcL (1.6-8.9); Platelet Count 112 K/mcL (140-400); Red Blood Count 3.61 M/mcL (4.19-5.50); Red Cell Distribution Width 12.2 % (11.5-14.5); Segmented Neutrophils % 90.5 %
[2017-01-22] MEDS: *HR* Heparin 5,000 UNIT/ML VIAL SQ SCH ×2 (05:48→16:25)
[2017-01-22 06:00] LABS: BUN/Creatinine Ratio 29 (6-26); Blood Urea Nitrogen 20 mg/dL (8-26); Calcium 8.5 mg/dL (8.6-10.8); Carbon Dioxide 32 mEq/L (19-29); Chloride 96 mEq/L (98-109); Glucose 229 mg/dL (70-99); Osmolality,Calculated 288 (280-300); Potassium 4.2 mEq/L (3.5-4.5); Sodium 134 mEq/L (136-145); eGFR For African Americans > 60 (> 60); eGFR For Non-African Americans > 60 (> 60)
[2017-01-22] MEDS: Budesonide/Formoterol 160/4.5 MDI IH SCH ×2 (07:43→19:44)
[2017-01-22] MEDS: Lactobacillus 1 EACH CAP.SPRINK PO SCH (07:56)
[2017-01-22] MEDS: Famotidine 20 MG TABLET PO SCH ×2 (07:56→16:24)
[2017-01-22] MEDS: Aspirin Enteric Coated 81 MG Tablet PO SCH (07:56)
[2017-01-22] MEDS: Loratadine 10 MG TABLET PO SCH (07:56)
[2017-01-22] MEDS: ARIPiprazole 5 MG TABLET PO SCH (07:56)
[2017-01-22] MEDS: Nicotine 21 MG PATCH.TD24 TD SCH (07:57)
[2017-01-22] MEDS ORDERED: Baclofen 10 MG TABLET PO PRN (08:34)
--- NOTE | 2017-01-22 09:00 | Internal Med Progress Note ---
<Crystal Knox - Last Filed: 01/22/17 11:19> Date of Encounter: 01/22/17 Time of Encounter: 08:30 - Assessment and plan (1) Acute exacerbation of chronic obstructive airways disease Current Visit: No Status: Acute Assessment and plan: - Likely precipitated by bronchitis as patient reports being compliant to COPD medications and last smoking 6 weeks ago. - Clinically stable on BiPAP - Continue steroid, Symbicort and bronchodilators. - Continue supplemental oxygen and BiPAP. - Continue to monitor with pulse oximetry. (2) Tobacco abuse Current Visit: No Status: Chronic (3) Chronic bronchitis with acute exacerbation Current Visit: No Status: Acute Assessment and plan: - Acute on chronic bronchitlis with CXR suggests emphysema but no evidence of pneumonia. - Will obtain sputum culture. - Will switch from IV Rocephin to azithromycin. - Continue bronchodilator. (4) Cocaine abuse Current Visit: No Status: Chronic Assessment and plan: - Patient admits IV cocaine us one day prior to admission. (5) Schizoaffective disorder, bipolar type Current Visit: No Status: Chronic Assessment and plan: - Continue home-dose Abilify. (6) Chronic hepatitis C Current Visit: Yes Status: Chronic Qualifiers: Hepatic coma status: without hepatic coma Qualified Code(s): B18.2 - Chronic viral hepatitis C (7) DVT prophylaxis Current Visit: No Status: Acute Assessment and plan: - SQ heparin. - Subjective Interval history: Patient was seen and examined this morning. Patient is only BiPAP and reports breathing about the same as yesterday. Patient also has productive cough with dark sputum but no blood. Patient recalls having fever yesterday but not today. Patient reports being compliant to his COPD medications and 2L home oxygen. Patient states his last smoking was 6 weeks ago. Patient admits IV cocaine use with last use two days ago. - Constitutional Vitals: Temp Pulse Resp BP Pulse Ox 97.5 F L 97 21 138/82 99 01/22/17 07:18 01/22/17 07:18 01/22/17 07:44 01/22/17 07:18 01/22/17 07:44 General appearance: Present: mild distress, A&O X 3, underweight, answers questions appropriately - Head Head exam: Present: atraumatic, normocephalic - Eye Eye exam: Present: EOMI, PERRL, conjuntiva pink, sclera anicteric - Neck Neck exam general surgery: Present: supple, trachea midline. Absent: lymphadenopathy - Respiratory Respiratory exam: Present: wheezes (with coarse breath sounds). Absent: accessory muscle use, rales, rhonchi - Cardiovascular Cardiovascular exam: Present: +S1, +S2, tachycardia. Absent: diastolic murmur, gallop, rubs, systolic murmur - GI/Abdominal GI/Abdominal exam: Present: normal bowel sounds, soft, no peritoneal signs. Absent: distended, tenderness - Extremities Exam Extremities exam: Present: warm, radial pulses palpable and symetrical. Absent : calf tenderness, cyanotic, pedal edema - Neurological Exam Neurological exam: Present: CN II-XII intact, oriented X3, no focal deficits. Absent: pronater drift, facial droop, speech deficit Additional comments: track blood at bilateral cubital fossa noted. Per patient, those are places he injected cocaine. - Skin Skin exam: Present: dry, intact, warm Internal Medicine: Result - Labs CBC & Chem 7: 01/22/17 04:57 01/22/17 04:57 Labs: Short CBC 01/22/17 Range/Units 04:57 WBC 10.5 (4.3-11.1) K/mcL Hgb 10.9 L D (12.9-16.9) g/dL Hct 32.8 L (37.5-50.1) % Plt Count 112 L (140-400) K/mcL Neutrophils # 9.5 H (1.6-8.9) K/mcL BMP 01/22/17 04:57 Sodium 134 L Potassium 4.2 Chloride 96 L Carbon Dioxide 32 H BUN 20 Creatinine 0.68 L Glucose 229 H Calcium 8.5 L - ABG Interpretation ABG results: PT/INR, D-dimer PT 15.8 Seconds (9.4-12.1) H 01/21/17 07:42 Consult Discharge Plan - Plan [facility] Care Provider[facility] - <Charles Blanco - Last Filed: 01/22/17 17:19> Date of Encounter: 01/22/17 - Assessment and plan (1) Acute on chronic respiratory failure with hypoxemia Current Visit: Yes Status: Acute (2) Acute exacerbation of chronic obstructive airways disease Current Visit: Yes Status: Acute (3) Schizoaffective disorder, bipolar type Current Visit: No Status: Chronic (4) Tobacco abuse Current Visit: No Status: Chronic (5) Cocaine abuse Current Visit: No Status: Chronic (6) Chronic hepatitis C Current Visit: Yes Status: Chronic Qualifiers: Hepatic coma status: without hepatic coma Qualified Code(s): B18.2 - Chronic viral hepatitis C - Constitutional Vitals: Temp Pulse Resp BP Pulse Ox 97.7 F 94 30 108/63 99 01/22/17 11:20 01/22/17 11:20 01/22/17 12:35 01/22/17 11:20 01/22/17 12:35 Internal Medicine: Result - Labs CBC & Chem 7: 01/22/17 04:57 01/22/17 04:57 Labs: Short CBC 01/22/17 Range/Units 04:57 WBC 10.5 (4.3-11.1) K/mcL Hgb 10.9 L D (12.9-16.9) g/dL Hct 32.8 L (37.5-50.1) % Plt Count 112 L (140-400) K/mcL Neutrophils # 9.5 H (1.6-8.9) K/mcL BMP 01/22/17 04:57 Sodium 134 L Potassium 4.2 Chloride 96 L Carbon Dioxide 32 H BUN 20 Creatinine 0.68 L Glucose 229 H Calcium 8.5 L - ABG Interpretation ABG results: PT/INR, D-dimer PT 15.8 Seconds (9.4-12.1) H 01/21/17 07:42 - Attending Attestation I examined this patient and my medical decision-making was reviewed with the Resident Physician on 01/22/17. I agree with the documented findings, disposition and treatment plan as described except to the extent set forth below. Mr. Sosa is currently admitted for acute exac COPD/hypoxic resp failure. He remains high risk due to potential for worsening respiratory status. Mr. Sosa is doing a little better at this time. He is off bipap. No fever or chills. No GI symptoms. Hungry. Exam Mucus membranes moist Heart reg Lungs with scattered rhonchi and some wheeze No edema I/P 1. Hypoxic resp failure 2. COPD exac Further diagnoses and plan as above.
[2017-01-22] MEDS ORDERED: *HR* HYDROcodone/Acet 5/325 mg TABLET PO PRN (10:52)
[2017-01-22] MEDS ORDERED: Nicotine 2 MG GUM BC PRN (10:52)
[2017-01-22] MEDS ORDERED: Azithromycin 500 MG in D5% in Water 250 ML IVPB ONE (11:24)
[2017-01-22] MEDS: hydrOXYzine pamoate 25 MG CAPSULE PO PRN (12:07)
--- NOTE | 2017-01-22 13:19 | Electrocardiograph Report ---
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
[2017-01-22] MEDS ORDERED: *HR* LORazepam 2 MG/ML VIAL IVP PRN ×3 (13:30)
[2017-01-22] MEDS: Melatonin 3 MG TABLET PO SCH (20:47)
[2017-01-23] MEDS: methylPREDNISolone 125 MG/2 ML VIAL IVP SCH ×3 (00:08→16:12)
[2017-01-23] MEDS: Ipratropium/Albuterol Neb 3 ML IH SCH ×6 (03:40→22:48)
[2017-01-23] MEDS: *HR* Heparin 5,000 UNIT/ML VIAL SQ SCH ×2 (05:27→16:59)
[2017-01-23 07:00] LABS: Hematocrit 29.4 % (37.5-50.1); Lymphocytes # 0.5 K/mcL (0.6-4.6); Lymphocytes % 5.5 %; Mean Corpuscular Hemoglobin 30.5 pg (28.0-33.3); Mean Corpuscular Volume 89.6 fL (83.0-100.0); Mean Platelet Volume 10.5 fL (9.4-12.4); Monocytes # 0.3 K/mcL (0.0-1.3); Monocytes % 3.2 %; Platelet Count 123 K/mcL (140-400); Red Blood Count 3.28 M/mcL (4.19-5.50); Red Cell Distribution Width 12.3 % (11.5-14.5); Segmented Neutrophils % 90.3 %
[2017-01-23 07:10] LABS: BUN/Creatinine Ratio 23 (6-26); Blood Urea Nitrogen 16 mg/dL (8-26); Calcium 8.3 mg/dL (8.6-10.8); Carbon Dioxide 34 mEq/L (19-29); Chloride 96 mEq/L (98-109); Glucose 309 mg/dL (70-99); Osmolality,Calculated 291 (280-300); Potassium 3.8 mEq/L (3.5-4.5); Sodium 134 mEq/L (136-145); eGFR For African Americans > 60 (> 60); eGFR For Non-African Americans > 60 (> 60)
[2017-01-23] MEDS: Budesonide/Formoterol 160/4.5 MDI IH SCH ×2 (07:30→20:08)
[2017-01-23] MEDS: ARIPiprazole 10 MG TABLET PO SCH (07:47)
[2017-01-23] MEDS: Lactobacillus 1 EACH CAP.SPRINK PO SCH (07:47)
[2017-01-23] MEDS: Famotidine 20 MG TABLET PO SCH ×2 (07:47→16:12)
[2017-01-23] MEDS: Aspirin Enteric Coated 81 MG Tablet PO SCH (07:47)
[2017-01-23] MEDS: Nicotine 21 MG PATCH.TD24 TD SCH (07:48)
[2017-01-23] MEDS: Loratadine 10 MG TABLET PO SCH (07:48)
--- NOTE | 2017-01-23 09:33 | Internal Med Progress Note ---
<Crystal Knox - Last Filed: 01/23/17 10:54> Date of Encounter: 01/23/17 Time of Encounter: 08:15 - Assessment and plan (1) Acute respiratory failure with hypoxia Current Visit: No Status: Resolved Assessment and plan: - Shortness of breath requiring more than home-dose oxygen on admission. - Likely secondary to AE COPD and/or bronchitis. - Continue steroid, Symbicort and bronchodilator for COPD. - Continue azithromycin for bronchitis. - Continue supplemental oxygen while attempting to wean off from BiPAP. (2) Acute exacerbation of chronic obstructive airways disease Current Visit: Yes Status: Acute Assessment and plan: - Likely precipitated by bronchitis as patient reports being compliant to COPD medications and last smoking 6 weeks ago. - Clinically stable on BiPAP - Continue steroid, Symbicort and bronchodilators. - Continue supplemental oxygen while weaning off from BiPAP. - Continue to monitor with pulse oximetry. (3) Chronic bronchitis with acute exacerbation Current Visit: No Status: Acute Assessment and plan: - Acute on chronic bronchitlis with CXR suggests emphysema but no evidence of pneumonia. - Will obtain sputum culture. - Continue azithromycin. - Continue bronchodilator. (4) Tobacco abuse Current Visit: No Status: Chronic Assessment and plan: - Smoking cessation counseling. - Continue nicotine gum and patch. (5) Cocaine abuse Current Visit: No Status: Chronic Assessment and plan: - Patient admits IV cocaine us one day prior to admission. (6) Schizoaffective disorder, bipolar type Current Visit: No Status: Chronic Assessment and plan: - Continue home-dose Abilify. (7) Chronic hepatitis C Current Visit: Yes Status: Chronic Qualifiers: Hepatic coma status: without hepatic coma Qualified Code(s): B18.2 - Chronic viral hepatitis C (8) DVT prophylaxis Current Visit: No Status: Acute Assessment and plan: - SQ heparin. - Subjective Interval history: No significant event noted overnight. Per nurse, patient was doing well on nasal cannula overnight and requests to be on BiPAP this morning. Patient was seen and examined this morning. Patient reports breathing much better compared to yesterday but still has some congestion. Patient also has some pain when coughing. Patient denies fever, chills, nausea, vomiting. - Constitutional Vitals: Temp Pulse Resp BP Pulse Ox 98.1 F 91 16 120/71 99 01/23/17 08:26 01/23/17 08:26 01/23/17 08:26 01/23/17 08:26 01/23/17 08:26 General appearance: Present: mild distress, A&O X 3, underweight, answers questions appropriately - Head Head exam: Present: atraumatic, normocephalic - Eye Eye exam: Present: EOMI, PERRL, conjuntiva pink, sclera anicteric - Neck Neck exam general surgery: Present: supple, trachea midline. Absent: lymphadenopathy - Respiratory Respiratory exam: Present: wheezes (Diffuse). Absent: accessory muscle use, rales, rhonchi - Cardiovascular Cardiovascular exam: Present: RRR, +S1, +S2. Absent: diastolic murmur, gallop, rubs, systolic murmur - GI/Abdominal GI/Abdominal exam: Present: normal bowel sounds, soft, no peritoneal signs. Absent: distended, tenderness - Extremities Exam Extremities exam: Present: warm, radial pulses palpable and symetrical. Absent : calf tenderness, cyanotic, pedal edema - Neurological Exam Neurological exam: Present: CN II-XII intact, oriented X3, no focal deficits. Absent: pronater drift, facial droop, speech deficit - Skin Skin exam: Present: dry, intact, warm Internal Medicine: Result - Labs CBC & Chem 7: 01/23/17 06:01 01/23/17 06:01 Labs: Short CBC 01/23/17 Range/Units 06:01 WBC 8.8 (4.3-11.1) K/mcL Hgb 10.0 L (12.9-16.9) g/dL Hct 29.4 L (37.5-50.1) % Plt Count 123 L (140-400) K/mcL Neutrophils # 8.0 (1.6-8.9) K/mcL BMP 01/23/17 06:01 Sodium 134 L Potassium 3.8 Chloride 96 L Carbon Dioxide 34 H BUN 16 Creatinine 0.70 L Glucose 309 H Calcium 8.3 L - ABG Interpretation ABG results: PT/INR, D-dimer PT 15.8 Seconds (9.4-12.1) H 01/21/17 07:42 Consult Discharge Plan - Plan [facility]errals: [facility] [Primary Care Provider[facility] - <Charles Blanco - Last Filed: 01/23/17 17:41> Date of Encounter: 01/23/17 - Assessment and plan (1) Acute on chronic respiratory failure with hypoxemia Current Visit: Yes Status: Acute (2) Acute exacerbation of chronic obstructive airways disease Current Visit: Yes Status: Acute (3) Schizoaffective disorder, bipolar type Current Visit: No Status: Chronic (4) Tobacco abuse Current Visit: No Status: Chronic (5) Cocaine abuse Current Visit: No Status: Chronic (6) Chronic hepatitis C Current Visit: Yes Status: Chronic Qualifiers: Hepatic coma status: without hepatic coma Qualified Code(s): B18.2 - Chronic viral hepatitis C - Constitutional Vitals: Temp Pulse Resp BP Pulse Ox 98.0 F 95 26 119/68 98 01/23/17 16:22 01/23/17 16:22 01/23/17 16:22 01/23/17 16:22 01/23/17 16:22 Internal Medicine: Result - Labs CBC & Chem 7: 01/23/17 06:01 01/23/17 06:01 Labs: Short CBC 01/23/17 Range/Units 06:01 WBC 8.8 (4.3-11.1) K/mcL Hgb 10.0 L (12.9-16.9) g/dL Hct 29.4 L (37.5-50.1) % Plt Count 123 L (140-400) K/mcL Neutrophils # 8.0 (1.6-8.9) K/mcL BMP 01/23/17 06:01 Sodium 134 L Potassium 3.8 Chloride 96 L Carbon Dioxide 34 H BUN 16 Creatinine 0.70 L Glucose 309 H Calcium 8.3 L - ABG Interpretation ABG results: PT/INR, D-dimer PT 15.8 Seconds (9.4-12.1) H 01/21/17 07:42 - Attending Attestation I examined this patient and my medical decision-making was reviewed with the Resident Physician on 01/23/17. I agree with the documented findings, disposition and treatment plan as described except to the extent set forth below. Mr. Weston is currently admitted for acute on chronic hypoxic resp failure and COPD. He remains moderate to high risk due to potential for worsening respiratory status. Mr. Sosa is doing OK. Breathing better overall. Wants mucomyst. No cough. No fever or chills. Exam Alert. Comfortable Heart reg End exp wheeze heard I/P 1. Hypoxia 2. COPD Further diagnoses and plan as above.
[2017-01-23] MEDS: hydrOXYzine pamoate 25 MG CAPSULE PO PRN (10:24)
[2017-01-23] MEDS: Azithromycin 250 MG TABLET PO SCH (11:09)
[2017-01-23] MEDS: Acetylcysteine 10% 2 ML INHSOL IH SCH ×2 (15:34→20:09)
[2017-01-23] MEDS: Melatonin 3 MG TABLET PO SCH (20:35)
[2017-01-24] MEDS: Acetylcysteine 10% 2 ML INHSOL IH SCH ×4 (04:55→19:51)
[2017-01-24] MEDS: Ipratropium/Albuterol Neb 3 ML IH SCH ×5 (04:55→19:51)
[2017-01-24 05:10] LABS: Hematocrit 29.4 % (37.5-50.1); Hemoglobin 10.1 g/dL (12.9-16.9); Immature Granulocytes % 0.8 % (0-4); Lymphocytes # 0.8 K/mcL (0.6-4.6); Lymphocytes % 11.8 %; Mean Corpuscular HGB Conc 34.4 g/dL (31.6-35.5); Mean Corpuscular Hemoglobin 30.7 pg (28.0-33.3); Mean Corpuscular Volume 89.4 fL (83.0-100.0); Mean Platelet Volume 10.2 fL (9.4-12.4); Monocytes # 0.4 K/mcL (0.0-1.3); Monocytes % 5.6 %; Neutrophils # 5.4 K/mcL (1.6-8.9); Platelet Count 138 K/mcL (140-400); Red Blood Count 3.29 M/mcL (4.19-5.50); Red Cell Distribution Width 12.3 % (11.5-14.5); Segmented Neutrophils % 81.8 %
[2017-01-24 05:24] LABS: BUN/Creatinine Ratio 21 (6-26); Blood Urea Nitrogen 17 mg/dL (8-26); Calcium 8.5 mg/dL (8.6-10.8); Chloride 95 mEq/L (98-109); Glucose 402 mg/dL (70-99); Osmolality,Calculated 298 (280-300); Potassium 3.8 mEq/L (3.5-4.5); Sodium 135 mEq/L (136-145); eGFR For African Americans > 60 (> 60); eGFR For Non-African Americans > 60 (> 60)
[2017-01-24 05:50] LABS: Carbon Dioxide 37 mEq/L (19-29)
[2017-01-24] MEDS: *HR* Heparin 5,000 UNIT/ML VIAL SQ SCH ×2 (06:13→16:52)
[2017-01-24] MEDS: Budesonide/Formoterol 160/4.5 MDI IH SCH ×2 (07:41→19:51)
[2017-01-24] MEDS: Lactobacillus 1 EACH CAP.SPRINK PO SCH (09:18)
[2017-01-24] MEDS: Loratadine 10 MG TABLET PO SCH (09:18)
[2017-01-24] MEDS: Aspirin Enteric Coated 81 MG Tablet PO SCH (09:18)
[2017-01-24] MEDS: Nicotine 21 MG PATCH.TD24 TD SCH (09:19)
[2017-01-24] MEDS: Famotidine 20 MG TABLET PO SCH ×2 (09:19→16:52)
[2017-01-24] MEDS: predniSONE 20 MG TABLET PO SCH (09:19)
[2017-01-24] MEDS: ARIPiprazole 10 MG TABLET PO SCH (09:19)
--- NOTE | 2017-01-24 10:53 | Internal Med Progress Note ---
<Crystal Knox - Last Filed: 01/24/17 14:53> Date of Encounter: 01/24/17 Time of Encounter: 09:00 - Assessment and plan (1) Acute respiratory failure with hypoxia Current Visit: No Status: Resolved Assessment and plan: - Shortness of breath requiring more than home-dose oxygen on admission. - Likely secondary to AE COPD and/or bronchitis. - Continue steroid, Symbicort and bronchodilator for COPD. - Continue azithromycin for bronchitis. - Continue supplemental oxygen/BiPAP. - Will order BiPAP qualification test. - Possible discharge tomorrow. (2) Acute exacerbation of chronic obstructive airways disease Current Visit: Yes Status: Acute Assessment and plan: - Likely precipitated by bronchitis as patient reports being compliant to COPD medications and last smoking 6 weeks ago. - Clinically stable on BiPAP - Continue steroid, Symbicort and bronchodilators. - Continue supplemental oxygen while weaning off from BiPAP. - Continue to monitor with pulse oximetry. (3) Chronic bronchitis with acute exacerbation Current Visit: No Status: Acute Assessment and plan: - Acute on chronic bronchitlis with CXR suggests emphysema but no evidence of pneumonia. - Will obtain sputum culture. - Continue azithromycin (since 01/22) and plan to finish 5-day course. . - Continue bronchodilator. (4) Tobacco abuse Current Visit: No Status: Chronic Assessment and plan: - Smoking cessation counseling. - Continue nicotine gum and patch. (5) Cocaine abuse Current Visit: No Status: Chronic Assessment and plan: - Patient admits IV cocaine us one day prior to admission. (6) Schizoaffective disorder, bipolar type Current Visit: No Status: Chronic Assessment and plan: - Continue home-dose Abilify. (7) Chronic hepatitis C Current Visit: Yes Status: Chronic Qualifiers: Hepatic coma status: without hepatic coma Qualified Code(s): B18.2 - Chronic viral hepatitis C (8) DVT prophylaxis Current Visit: No Status: Acute Assessment and plan: - SQ heparin. - Subjective Interval history: No significant event noted and patient is able to tolerate nasal cannula most of time overnight. Patient was seen and examined this morning. Patient reports breathing continues to improve compared to yesterday but still has some congestion. Patient also has some pleuritic chest pain. Patient denies fever, chills, nausea, vomiting. - Constitutional Vitals: Temp Pulse Resp BP Pulse Ox 98.5 F 88 22 130/80 95 01/24/17 07:31 01/24/17 07:31 01/24/17 07:41 01/24/17 07:31 01/24/17 07:41 General appearance: Present: mild distress, A&O X 3, underweight, answers questions appropriately - Head Head exam: Present: atraumatic, normocephalic - Eye Eye exam: Present: EOMI, PERRL, conjuntiva pink, sclera anicteric - Neck Neck exam general surgery: Present: supple, trachea midline. Absent: lymphadenopathy - Respiratory Respiratory exam: Present: wheezes (Diffuse). Absent: accessory muscle use, rales, rhonchi - Cardiovascular Cardiovascular exam: Present: RRR, +S1, +S2. Absent: diastolic murmur, gallop, rubs, systolic murmur - GI/Abdominal GI/Abdominal exam: Present: normal bowel sounds, soft, no peritoneal signs. Absent: distended, tenderness - Extremities Exam Extremities exam: Present: warm, radial pulses palpable and symetrical. Absent : calf tenderness, cyanotic, pedal edema - Neurological Exam Neurological exam: Present: CN II-XII intact, oriented X3, no focal deficits. Absent: pronater drift, facial droop, speech deficit - Skin Skin exam: Present: dry, intact, warm Internal Medicine: Result - Labs CBC & Chem 7: 01/24/17 04:27 01/24/17 04:27 Labs: Short CBC 01/24/17 Range/Units 04:27 WBC 6.6 (4.3-11.1) K/mcL Hgb 10.1 L (12.9-16.9) g/dL Hct 29.4 L (37.5-50.1) % Plt Count 138 L (140-400) K/mcL Neutrophils # 5.4 (1.6-8.9) K/mcL BMP 01/24/17 04:27 Sodium 135 L Potassium 3.8 Chloride 95 L Carbon Dioxide 37 H BUN 17 Creatinine 0.82 Glucose 402 H Calcium 8.5 L - ABG Interpretation ABG results: PT/INR, D-dimer PT 15.8 Seconds (9.4-12.1) H 01/21/17 07:42 Consult Discharge Plan - Plan Referrals: [facility] [Primary Care Provider] - <Charles Blanco - Last Filed: 01/24/17 15:18> Date of Encounter: 01/24/17 - Assessment and plan (1) Acute on chronic respiratory failure with hypoxemia Current Visit: Yes Status: Acute (2) Acute exacerbation of chronic obstructive airways disease Current Visit: Yes Status: Acute (3) Schizoaffective disorder, bipolar type Current Visit: No Status: Chronic (4) Tobacco abuse Current Visit: No Status: Chronic (5) Cocaine abuse Current Visit: No Status: Chronic (6) Chronic hepatitis C Current Visit: Yes Status: Chronic Qualifiers: Hepatic coma status: without hepatic coma Qualified Code(s): B18.2 - Chronic viral hepatitis C - Constitutional Vitals: Temp Pulse Resp BP Pulse Ox 98.4 F 79 24 129/81 95 01/24/17 11:48 01/24/17 11:48 01/24/17 11:48 01/24/17 11:48 01/24/17 11:48 Internal Medicine: Result - Labs CBC & Chem 7: 01/24/17 04:27 01/24/17 04:27 Labs: Short CBC 01/24/17 Range/Units 04:27 WBC 6.6 (4.3-11.1) K/mcL Hgb 10.1 L (12.9-16.9) g/dL Hct 29.4 L (37.5-50.1) % Plt Count 138 L (140-400) K/mcL Neutrophils # 5.4 (1.6-8.9) K/mcL BMP 01/24/17 04:27 Sodium 135 L Potassium 3.8 Chloride 95 L Carbon Dioxide 37 H BUN 17 Creatinine 0.82 Glucose 402 H Calcium 8.5 L - ABG Interpretation ABG results: PT/INR, D-dimer PT 15.8 Seconds (9.4-12.1) H 01/21/17 07:42 - Attending Attestation I examined this patient and my medical decision-making was reviewed with the Resident Physician on 01/24/17. I agree with the documented findings, disposition and treatment plan as described except to the extent set forth below. Mr. Sosa is currently admitted for acute hypoxic resp failure and COPD. He remains moderate to high risk due to potential for worsening respiratory status. Mr. Sosa is doing somewhat better but still dyspneic with movement. Mobilizing some sputum but not much. No fever or chills. No GI symptoms. Exam Alert. Comfortable Heart reg Diffuse faint end exp wheeze I/P 1. Hypoxia 2. COPD Increase activity Anticipate d/c tomorrow.
[2017-01-24] MEDS: Azithromycin 250 MG TABLET PO SCH (11:14)
[2017-01-24] MEDS: Melatonin 3 MG TABLET PO SCH (21:58)
[2017-01-25] MEDS: Ipratropium/Albuterol Neb 3 ML IH SCH ×7 (00:10→23:44)
[2017-01-25] MEDS: Acetylcysteine 10% 2 ML INHSOL IH SCH ×4 (04:34→19:39)
[2017-01-25] MEDS: *HR* Heparin 5,000 UNIT/ML VIAL SQ SCH ×2 (06:05→16:28)
[2017-01-25] MEDS: predniSONE 20 MG TABLET PO SCH (06:05)
[2017-01-25] MEDS: Famotidine 20 MG TABLET PO SCH ×2 (06:05→16:28)
[2017-01-25] MEDS: Budesonide/Formoterol 160/4.5 MDI IH SCH ×2 (08:15→19:39)
[2017-01-25] MEDS: Loratadine 10 MG TABLET PO SCH (10:02)
[2017-01-25] MEDS: hydrOXYzine pamoate 25 MG CAPSULE PO SCH ×3 (10:02→22:18)
[2017-01-25] MEDS: Aspirin Enteric Coated 81 MG Tablet PO SCH (10:02)
[2017-01-25] MEDS: ARIPiprazole 10 MG TABLET PO SCH (10:02)
[2017-01-25] MEDS: Lactobacillus 1 EACH CAP.SPRINK PO SCH (10:02)
[2017-01-25] MEDS: Azithromycin 250 MG TABLET PO SCH (10:03)
[2017-01-25] MEDS: Nicotine 21 MG PATCH.TD24 TD SCH (10:03)
--- NOTE | 2017-01-25 10:12 | Internal Med Progress Note ---
<Crystal Knox - Last Filed: 01/25/17 12:25> Date of Encounter: 01/25/17 Time of Encounter: 08:00 - Assessment and plan (1) Acute respiratory failure with hypoxia Current Visit: No Status: Resolved Assessment and plan: - Shortness of breath requiring more than home-dose oxygen on admission. - Likely secondary to AE COPD and/or bronchitis. - Continue steroid, Symbicort and bronchodilator for COPD. - Continue azithromycin for bronchitis. - Continue supplemental oxygen/BiPAP. - Will order BiPAP qualification test again. - Possible discharge tomorrow. (2) Acute exacerbation of chronic obstructive airways disease Current Visit: Yes Status: Acute Assessment and plan: - Likely precipitated by bronchitis as patient reports being compliant to COPD medications and last smoking 6 weeks ago. - Clinically stable on BiPAP - Continue steroid, Symbicort and bronchodilators. - Continue supplemental oxygen/BiPAP. - Continue to monitor with pulse oximetry. (3) Chronic bronchitis with acute exacerbation Current Visit: No Status: Acute Assessment and plan: - Acute on chronic bronchitlis with CXR suggests emphysema but no evidence of pneumonia. - Will obtain sputum culture. - Continue azithromycin (since 01/22) and plan to finish 5-day course. . - Continue bronchodilator. (4) Tobacco abuse Current Visit: No Status: Chronic Assessment and plan: - Smoking cessation counseling. - Continue nicotine gum and patch. (5) Schizoaffective disorder, bipolar type Current Visit: No Status: Chronic Assessment and plan: - Continue home-dose Abilify. - Will resume his home-dose hydroxyzine for his anxiety. (6) Cocaine abuse Current Visit: No Status: Chronic Assessment and plan: - Patient admits IV cocaine us one day prior to admission. (7) Chronic hepatitis C Current Visit: Yes Status: Chronic Qualifiers: Hepatic coma status: without hepatic coma Qualified Code(s): B18.2 - Chronic viral hepatitis C (8) DVT prophylaxis Current Visit: No Status: Acute Assessment and plan: - SQ heparin. - Subjective Interval history: BiPAP qualification test was not completed given patient refused to take off BiPAP. Patient was seen and examined this morning. Patient reports breathing worse compared to yesterday but also states cough improved. Patient also has some pleuritic chest pain. Patient denies fever, chills, nausea, vomiting. - Constitutional Vitals: Temp Pulse Resp BP Pulse Ox 97.9 F 82 16 125/72 99 01/25/17 07:39 01/25/17 07:39 01/25/17 08:15 01/25/17 07:39 01/25/17 08:15 General appearance: Present: mild distress (anxious), A&O X 3, underweight, answers questions appropriately - Head Head exam: Present: atraumatic, normocephalic - Eye Eye exam: Present: EOMI, PERRL, conjuntiva pink, sclera anicteric - Neck Neck exam general surgery: Present: supple, trachea midline. Absent: lymphadenopathy - Respiratory Respiratory exam: Present: wheezes. Absent: accessory muscle use, rales, rhonchi - Cardiovascular Cardiovascular exam: Present: +S1, +S2, tachycardia. Absent: diastolic murmur, gallop, rubs, systolic murmur - GI/Abdominal GI/Abdominal exam: Present: normal bowel sounds, soft, no peritoneal signs. Absent: distended, tenderness - Extremities Exam Extremities exam: Present: warm, radial pulses palpable and symetrical. Absent : calf tenderness, cyanotic, pedal edema - Neurological Exam Neurological exam: Present: CN II-XII intact, oriented X3, no focal deficits. Absent: pronater drift, facial droop, speech deficit - Skin Skin exam: Present: dry, intact, warm Internal Medicine: Result - Labs CBC & Chem 7: 01/24/17 04:27 01/24/17 04:27 - ABG Interpretation ABG results: PT/INR, D-dimer PT 15.8 Seconds (9.4-12.1) H 01/21/17 07:42 Consult Discharge Plan - Plan Referrals: [facility] [Primary Care Provider] - <Charles Blanco - Last Filed: 01/25/17 14:39> Date of Encounter: 01/25/17 - Assessment and plan (1) Acute on chronic respiratory failure with hypoxemia Current Visit: Yes Status: Acute (2) Acute exacerbation of chronic obstructive airways disease Current Visit: Yes Status: Acute (3) Anxiety Current Visit: Yes Status: Chronic Assessment and plan: Increase to home dose of Vistaril. (4) Schizoaffective disorder, bipolar type Current Visit: No Status: Chronic (5) Tobacco abuse Current Visit: No Status: Chronic (6) Cocaine abuse Current Visit: No Status: Chronic (7) Chronic hepatitis C Current Visit: Yes Status: Chronic Qualifiers: Hepatic coma status: without hepatic coma Qualified Code(s): B18.2 - Chronic viral hepatitis C - Constitutional Vitals: Temp Pulse Resp BP Pulse Ox 98.3 F 93 16 119/76 93 01/25/17 11:56 01/25/17 11:56 01/25/17 11:56 01/25/17 11:56 01/25/17 11:56 Internal Medicine: Result - Labs CBC & Chem 7: 01/24/17 04:27 01/24/17 04:27 - ABG Interpretation ABG results: PT/INR, D-dimer PT 15.8 Seconds (9.4-12.1) H 01/21/17 07:42 - Attending Attestation I examined this patient and my medical decision-making was reviewed with the Resident Physician on 01/25/17. I agree with the documented findings, disposition and treatment plan as described except to the extent set forth below. Mr. Sosa is currently admitted for acute exac COPD and hypoxia. He is having a lot of dyspnea and anxiety. He remains high risk due to potential for worsening respiratory status. Mr. Sosa had a bad night. He was very dyspneic and needed bipap put back on. Currently still feels somewhat short of breath. No fever or chills. No GI symptoms. Is not on his usual dose of Vistaril at this time. Exam Alert. Mild resp distress Mucus membranes moist Heart reg Lungs with scant end exp wheeze Abd soft No edema I/P 1. Acute hypoxic resp failure 2. Acute exac COPD 3. Anxiety Further diagnoses and plan as above.
[2017-01-25] MEDS: Melatonin 3 MG TABLET PO SCH (22:18)
[2017-01-26] MEDS: Acetylcysteine 10% 2 ML INHSOL IH SCH ×2 (03:22→07:48)
[2017-01-26] MEDS: Ipratropium/Albuterol Neb 3 ML IH SCH ×6 (03:22→23:28)
[2017-01-26] MEDS: *HR* Heparin 5,000 UNIT/ML VIAL SQ SCH ×2 (05:13→17:59)
[2017-01-26] MEDS: Lactobacillus 1 EACH CAP.SPRINK PO SCH (07:16)
[2017-01-26] MEDS: hydrOXYzine pamoate 25 MG CAPSULE PO SCH ×3 (07:17→21:56)
[2017-01-26] MEDS: Aspirin Enteric Coated 81 MG Tablet PO SCH (07:17)
[2017-01-26] MEDS: ARIPiprazole 10 MG TABLET PO SCH (07:17)
[2017-01-26] MEDS: Famotidine 20 MG TABLET PO SCH ×2 (07:17→17:59)
[2017-01-26] MEDS: Loratadine 10 MG TABLET PO SCH (07:17)
[2017-01-26] MEDS: predniSONE 20 MG TABLET PO SCH (07:17)
[2017-01-26] MEDS: Nicotine 21 MG PATCH.TD24 TD SCH (07:19)
[2017-01-26] MEDS: Budesonide/Formoterol 160/4.5 MDI IH SCH ×2 (07:48→19:38)
--- NOTE | 2017-01-26 08:56 | Discharge Summary ---
<Crystal Knox - Last Filed: 01/26/17 15:46> Date of Encounter: 01/26/17 Time of Encounter: 08:00 - Discharge Diagnosis (1) Acute respiratory failure with hypoxia Priority: Primary Status: Resolved (2) Acute exacerbation of chronic obstructive airways disease Priority: Primary Status: Acute (3) Chronic bronchitis with acute exacerbation Priority: Primary Status: Acute (4) Tobacco abuse Priority: Secondary Status: Chronic (5) Schizoaffective disorder, bipolar type Priority: Secondary Status: Chronic (6) Cocaine abuse Priority: Secondary Status: Chronic (7) Chronic hepatitis C Priority: Secondary Status: Chronic Qualifiers: Hepatic coma status: without hepatic coma Qualified Code(s): B18.2 - Chronic viral hepatitis C (8) DVT prophylaxis Priority: Secondary Status: Acute - Discharge Medications Prescriptions: Azithromycin [Zithromax] 250 mg PO Q24H #2 tablet predniSONE [PredniSONE] See Taper PO DAILY #30 tablet Home Medications: Aspirin [Lo-Dose Aspirin EC] 81 mg PO DAILY 07/06/16 [History] Baclofen [Lioresal] 10 mg PO TID 07/06/16 [History] Dicyclomine [Bentyl] 20 mg PO QID PRN 07/06/16 [History] Docusate [Colace] 200 mg PO BID PRN 07/06/16 [History] Lactobacillus Acidophilus [Acidophilus] 1 cap PO DAILY 07/06/16 [History] Melatonin [Melatin] 9 mg PO HS 07/06/16 [History] Ranitidine HCl [Acid Analysis Analyst] 150 mg PO BID 07/06/16 [History] hydrOXYzine HCl [Hydroxyzine HCl] 100 mg PO TID 07/06/16 [History] Loratadine [Allergy Relief] 10 mg PO DAILY 09/22/16 [History] Propranolol [Inderal] 10 mg PO BID 11/22/16 [History] ARIPiprazole [Abilify] 10 mg PO DAILY 01/21/17 [History] Acetaminophen [Tylenol] 650 mg PO Q6HR PRN 01/21/17 [History] Albuterol Neb [Proventil Neb] 2.5 mg IH QID PRN 01/21/17 [History] Albuterol Sulfate [Albuterol Inhaler] 2 puff IH Q4H PRN 01/21/17 [History] Budesonide/Formoterol 160/4.5 [Symbicort 160/4.5] 2 puff IH BIDR 01/21/17 [ History] Etodolac [Lodine] 400 mg PO BIDWM 01/21/17 [History] Naloxone HCl [Narcan] 4 mg NS AD PRN 01/21/17 [History] Naltrexone HCl [Revia] 50 mg PO HS 01/21/17 [History] Nicotine Patch [Nicoderm] 14 mg TD DAILY 01/21/17 [History] Nicotine Polacrilex [Nicotine Lozenge] 2 mg BC Q4H PRN 01/21/17 [History] Oxybutynin [Ditropan] 5 mg PO TID 01/21/17 [History] Sildenafil Citrate [Viagra] 50 mg PO AD PRN 01/21/17 [History] Tiotropium [Spiriva] 18 mcg IH 0700 01/21/17 [History] Azithromycin [Zithromax] 250 mg PO Q24H #2 tablet 01/26/17 [Rx] predniSONE [PredniSONE] See Taper PO DAILY #30 tablet 01/26/17 [Rx] Allergies/Adverse Reactions: Allergies haloperidol [From Haldol] Adverse Reaction (Verified 01/21/17 03:41) Muscle Pain [place] Adverse Reaction (Verified 01/21/17 03:41) Weakness Date of admission: 01/21/17 07:24 Primary care physician: [facility] Discharging clinician: Crystal Knox Anticipated date of discharge: 01/26/17 - Patient Status Disposition: Home, Self-Care Condition: Fair Functional capacity at discharge: independent ambulation Overall status at discharge: patient is progressing back to baseline - Discharge Instructions Instructions: Chronic Obstructive Pulmonary Disease (DC), Pneumonia (DC) [facility] - (PLEASE FOLLOW UP WITH YOUR PHYSICIAN ) Additional Instructions: Please continue azithromycin 250 mg PO daily for 2 more days to complete our antibiotic course for bronchitis. Please take prednisone taper: 40 mg daily x 3 days, then 30 mg daily x3 days, followed by 20 mg daily x3 days, and finally 10 mg daily x3 days. Please follow up with your primary care provider at [facility] within a week. - Diet and Activity Activity: increase activity as tolerated Diet: low fat, low cholesterol, low salt diet Hospital course: Mr. Sosa is a 61 year old male with PMH of COPD, chronic bronchitis, schizoaffective disorder bipolar type, history of cocaine use and chronic hepatitis C. Patient presented with complaint of worsening dyspnea for 2 days. Patient was noted to have fever 101 and required BiPAP in ED. CXR found extensive emphysematous change without evidence of acute airspace disease or pleural effusion. Patient was admitted for acute on chronic hypoxic respiratory failure likely secondary to AE COPD and bronchitis. Patient was started on antibiotic, steroid, Symbicort, bronchodilators along with supplemental oxygen/ BiPAP. Patient's respiratory status slowly improves throughout his hospital stay as he is able to maintain good O2 sat on 2.5L nasal cannula on 01/26/17. Overnight BiPAP qualification test does not indicate BiPAP need. Repeated CXR on 01/26/17 appeared to be better compared to the one on admission. Will discharge patient home with 2 more days of azithromycin (250 mg PO daily) complete our antibiotic therapy course for bronchitis. Patient will also take prednisone taper: 40 mg daily x 3 days, then 30 mg daily x3 days, followed by 20 mg daily x3 days, and finally 10 mg daily x3 days. Patient is instructed to follow up with his primary care provider at [facility] within a week. Patient verbalized his understanding and agreed with the discharge plan except that he requires help on transportation home, which we will have social work to assist. All questions answered. - Time Spent with Patient Total time spent providing and/or coordinating discharge services: Greater than 30 minutes - Constitutional Vitals: Temp Pulse Resp BP Pulse Ox 98.5 F 111 18 137/86 97 01/26/17 03:57 01/26/17 07:13 01/26/17 07:51 01/26/17 07:13 01/26/17 07:51 General appearance: Present: mild distress (anxious), A&O X 3, underweight, answers questions appropriately - Head Head exam: Present: atraumatic, normocephalic - Eye Eye exam: Present: EOMI, PERRL, conjuntiva pink, sclera anicteric - Neck Neck exam general surgery: Present: supple, trachea midline. Absent: lymphadenopathy - Respiratory Respiratory exam: Present: wheezes (Slightly better compared to the day before.) . Absent: accessory muscle use, rales, rhonchi - Cardiovascular Cardiovascular exam: Present: RRR, +S1, +S2. Absent: diastolic murmur, gallop, rubs, systolic murmur - GI/Abdominal GI/Abdominal exam: Present: normal bowel sounds, soft, no peritoneal signs. Absent: distended, tenderness - Extremities Exam Extremities exam: Present: warm, radial pulses palpable and symetrical. Absent : calf tenderness, cyanotic, pedal edema - Neurological Exam Neurological exam: Present: CN II-XII intact, oriented X3, no focal deficits. Absent: pronater drift, facial droop, speech deficit - Skin Skin exam: Present: dry, intact, warm <FrancisCharles A - Last Filed: 01/26/17 17:30> Date of Encounter: 01/26/17 - Discharge Diagnosis (1) Acute on chronic respiratory failure with hypoxemia Priority: Primary Status: Acute (2) Acute exacerbation of chronic obstructive airways disease Priority: Primary Status: Acute (3) Anxiety Priority: Secondary Status: Chronic (4) Schizoaffective disorder, bipolar type Status: Chronic (5) Tobacco abuse Status: Chronic (6) Cocaine abuse Status: Chronic (7) Chronic hepatitis C Status: Chronic Qualifiers: Hepatic coma status: without hepatic coma Qualified Code(s): B18.2 - Chronic viral hepatitis C Date of admission: 01/21/17 07:24 Primary care physician: [facility] Hospital course: Mr. Sosa is a 61 year old male - Time Spent with Patient Total time spent providing and/or coordinating discharge services: - Constitutional Vitals: Temp Pulse Resp BP Pulse Ox 98.5 F 111 18 137/86 97 01/26/17 03:57 01/26/17 07:13 01/26/17 07:51 01/26/17 07:13 01/26/17 07:51 - Attending Attestation I examined this patient and my medical decision-making was reviewed with the Resident Physician on 01/26/17. I agree with the documented findings, disposition and treatment plan as described except to the extent set forth below. Mr. Sosa is doing somewhat better. He is not as dyspneic. He is afebrile and vitals stable. Exam Alert. Comfortable Mucus membranes dry Heart reg Diffuse wheeze on R Plan D/C today Follow up with PCP Addend: Unable to get oxygen brought to him and case manager specialist not in today. D/C to be held till tomorrow.
[2017-01-26] MEDS: Azithromycin 250 MG TABLET PO SCH (11:16)
[2017-01-26] MEDS: Melatonin 3 MG TABLET PO SCH (21:56)
[2017-01-27] MEDS: Ipratropium/Albuterol Neb 3 ML IH SCH ×4 (03:58→16:01)
[2017-01-27] MEDS: *HR* Heparin 5,000 UNIT/ML VIAL SQ SCH (05:34)
[2017-01-27] MEDS: predniSONE 20 MG TABLET PO SCH (07:40)
[2017-01-27] MEDS: hydrOXYzine pamoate 25 MG CAPSULE PO SCH ×2 (07:40→13:57)
[2017-01-27] MEDS: Loratadine 10 MG TABLET PO SCH (07:40)
[2017-01-27] MEDS: Famotidine 20 MG TABLET PO SCH (07:41)
[2017-01-27] MEDS: Aspirin Enteric Coated 81 MG Tablet PO SCH (07:41)
[2017-01-27] MEDS: Lactobacillus 1 EACH CAP.SPRINK PO SCH (07:41)
[2017-01-27] MEDS: ARIPiprazole 10 MG TABLET PO SCH (07:41)
[2017-01-27] MEDS: Nicotine 21 MG PATCH.TD24 TD SCH (07:41)
[2017-01-27 08:25] VITALS: BP 101/65
[2017-01-27] MEDS: Budesonide/Formoterol 160/4.5 MDI IH SCH (08:34)
--- NOTE | 2017-01-27 15:14 | Internal Med Progress Note ---
Date of Encounter: 01/27/17 Time of Encounter: 10:00 - Assessment and plan (1) Acute on chronic respiratory failure with hypoxemia Current Visit: Yes Status: Acute Assessment and plan: Improved with treatment. Pt ready for discharge today. Arrangements made. (2) Acute exacerbation of chronic obstructive airways disease Current Visit: Yes Status: Acute Assessment and plan: Appears to be improved with treatment. Complete course of steroids and other meds as ordered. (3) Anxiety Current Visit: Yes Status: Chronic Assessment and plan: On Vistaril. (4) Schizoaffective disorder, bipolar type Current Visit: No Status: Chronic Assessment and plan: Continue home meds. (5) Tobacco abuse Current Visit: No Status: Chronic Assessment and plan: - Smoking cessation counseling. - Continue nicotine gum and patch. (6) Cocaine abuse Current Visit: No Status: Chronic Assessment and plan: Cessation counselling (7) Chronic hepatitis C Current Visit: Yes Status: Chronic Assessment and plan: Chronic issues. Qualifiers: Hepatic coma status: without hepatic coma Qualified Code(s): B18.2 - Chronic viral hepatitis C - Subjective Interval history: Mr. Sosa has been admitted for acute exac COPD. He was originally discharged yesterday but he had issues with transportation and getting his oxygen. He is doing better today. - Constitutional Vitals: Temp Pulse Resp BP Pulse Ox 98.5 F 90 18 101/65 98 01/27/17 08:22 01/27/17 08:22 01/27/17 11:46 01/27/17 08:22 01/27/17 11:46 General appearance: Present: mild distress (anxious), A&O X 3, underweight, answers questions appropriately - Head Head exam: Present: normocephalic - Eye Eye exam: Present: EOMI, conjuntiva pink - ENT ENT exam: Present: mucous membranes dry - Respiratory Respiratory exam: Present: decreased breath sounds. Absent: rhonchi, wheezes - Cardiovascular Cardiovascular exam: Present: RRR. Absent: tachycardia - GI/Abdominal GI/Abdominal exam: Present: soft. Absent: tenderness - Extremities Exam Extremities exam: Present: warm. Absent: tenderness - Neurological Exam Neurological exam: Present: alert, oriented X3 - Skin Skin exam: Present: dry, warm. Absent: rash Internal Medicine: Result - Labs CBC & Chem 7: 01/24/17 04:27 01/24/17 04:27 - ABG Interpretation ABG results: PT/INR, D-dimer PT 15.8 Seconds (9.4-12.1) H 01/21/17 07:42 - Impressions Impressions Chest X-Ray 01/26/17 10:43 IMPRESSION: Stable study. D/ / Socorro Rodriguez Cha, MD / Socorro Rodriguez Cha, MD Interpreting Provider: Socorro Rodriguez Cha, MD Consult Discharge Plan - Plan Instructions: Chronic Obstructive Pulmonary Disease (DC), Pneumonia (DC) Additional Instructions: Please continue azithromycin 250 mg PO daily for 2 more days to complete our antibiotic course for bronchitis. Please take prednisone taper: 40 mg daily x 3 days, then 30 mg daily x3 days, followed by 20 mg daily x3 days, and finally 10 mg daily x3 days. Please follow up with your primary care provider at [facility] within a week. [facility]errals: [facility] Care Provider[facility] - (PLEASE FOLLOW UP WITH YOUR PHYSICIAN ) Prescriptions: Azithromycin [Zithromax] 250 mg PO Q24H #2 tablet predniSONE [PredniSONE] See Taper PO DAILY #30 tablet
== END 2017-01-27 16:30 | disposition home or self-care (01) | DRG 140 ==
LOC: EMEROO 03:09 → 2ANU 03:09
PROVIDERS: ADMIT Internal Medicine; ATTEND Internal Medicine

== ENCOUNTER 2017-02-04 21:24 | Inpatient (IN) ==
[2017-02-04] MEDS ORDERED: Ipratropium/Albuterol Neb 3 ML IH ONE (21:33)
[2017-02-04] MEDS ORDERED: methylPREDNISolone 125 MG/2 ML VIAL IVP ONE (21:34)
--- NOTE | 2017-02-04 21:35 | Emergency Department Note ---
Disposition Clinical Impression: Acute exacerbation of chronic obstructive airways disease Disposition: Admitted As Inpatient Condition: Good General Adult HPI - General Chief complaint: ED Shortness of Breath/Dyspnea Stated complaint: GER Time Seen by Provider: 02/04/17 21:25 Source: patient, EMS Limitations: no limitations - History of Present Illness Pain Scale: 0 - Related Data Home Medications Medication Instructions Recorded Confirmed Aspirin [Lo-Dose Aspirin EC] 81 mg PO DAILY 07/06/16 02/04/17 Baclofen [Lioresal] 10 mg PO TID 07/06/16 02/04/17 Dicyclomine [Bentyl] 20 mg PO QID PRN 07/06/16 02/04/17 Docusate [Colace] 200 mg PO BID PRN 07/06/16 02/04/17 Lactobacillus Acidophilus 1 cap PO DAILY 07/06/16 02/04/17 [Acidophilus] Melatonin [Melatin] 9 mg PO HS 07/06/16 02/04/17 Ranitidine HCl [Acid Able Bodied Seaman] 150 mg PO BID 07/06/16 02/04/17 hydrOXYzine HCl [Hydroxyzine HCl] 100 mg PO TID 07/06/16 02/04/17 Loratadine [Allergy Relief] 10 mg PO DAILY 09/22/16 02/04/17 Propranolol [Inderal] 10 mg PO BID 11/22/16 02/04/17 ARIPiprazole [Abilify] 10 mg PO DAILY 01/21/17 02/04/17 Acetaminophen [Tylenol] 650 mg PO Q6HR PRN 01/21/17 02/04/17 Albuterol Neb [Proventil Neb] 2.5 mg IH QID PRN 01/21/17 02/04/17 Albuterol Sulfate [Albuterol 2 puff IH Q4H PRN 01/21/17 02/04/17 Inhaler] Budesonide/Formoterol 160/4.5 2 puff IH BIDR 01/21/17 02/04/17 [Symbicort 160/4.5] Etodolac [Lodine] 400 mg PO BIDWM 01/21/17 02/04/17 Naloxone HCl [Narcan] 4 mg NS AD PRN 01/21/17 02/04/17 Naltrexone HCl [Revia] 50 mg PO HS 01/21/17 02/04/17 Oxybutynin [Ditropan] 5 mg PO TID 01/21/17 02/04/17 Sildenafil Citrate [Viagra] 50 mg PO AD PRN 01/21/17 02/04/17 Tiotropium [Spiriva] 18 mcg IH 0700 01/21/17 02/04/17 Previous Rx's Medication Instructions Recorded Nicotine Patch [Nicoderm] 14 mg TD DAILY #28 patch 02/07/17 levoFLOXacin [Levaquin] 750 mg PO DAILY #5 tab 02/07/17 predniSONE [PredniSONE] See Taper PO DAILY #30 tablet 02/07/17 Allergies Allergy/AdvReac Type Severity Reaction Status Date / Time haloperidol [From Haldol] AdvReac Muscle Pain Verified 01/21/17 03:41 [place] AdvReac Weakness Verified 01/21/17 03:41 Past Medical History - Past Medical History Medical history: Reports: COPD, hepatitis, other Surgical history: Reports: cholecystectomy Psychiatric history: Reports: anxiety, bipolar, depression, schizophrenia - Social History Smoking Status: Current some day smoker Smokeless Tobacco Status: No Alcohol use: Reports: none Drug use: Reports: cocaine, IV Drug Use, other Physical Exam - General Limitations: no limitations General appearance: alert, in no apparent distress Course Vital Signs Temperature 97.7 F 02/04/17 21:24 Pulse Rate 120 02/04/17 21:24 Respiratory Rate 22 02/04/17 21:24 Blood Pressure 106/72 02/04/17 21:24 O2 Sat by Pulse Oximetry 98 02/04/17 21:24 Temperature 97.8 F 02/07/17 11:02 Pulse Rate 90 02/07/17 11:02 Respiratory Rate 18 02/07/17 15:30 Blood Pressure 113/74 02/07/17 15:30 O2 Sat by Pulse Oximetry 97 02/07/17 15:30 Oxygen Delivery Oxygen Delivery Nasal Cannula Medical Decision Making - Lab Data Result diagrams: 02/07/17 04:39 02/07/17 04:39 Lab Results 02/04/17 02/04/17 02/04/17 Range/Units 21:44 21:44 21:44 WBC 7.1 (4.3-11.1) K/mcL RBC 4.01 L (4.19-5.50) M/mcL Hgb 12.2 L (12.9-16.9) g/dL Hct 36.8 L (37.5-50.1) % MCV 91.8 (83.0-100.0) fL MCH 30.4 (28.0-33.3) pg MCHC 33.2 (31.6-35.5) g/dL RDW 13.1 (11.5-14.5) % Plt Count 173 (140-400) K/mcL MPV 9.1 L (9.4-12.4) fL Immature Gran % 0.3 (0-4) % Seg Neutrophils % 52.6 % Lymphocytes % 34.3 % Monocytes % 11.5 % Eosinophils % 1.0 % Basophils % 0.3 % Neutrophils # 3.8 (1.6-8.9) K/mcL Lymphocytes # 2.5 (0.6-4.6) K/mcL Monocytes # 0.8 (0.0-1.3) K/mcL Eosinophils # 0.1 (0.0-0.6) K/mcL Basophils # 0.0 (0.0-0.2) K/mcL Sodium 138 (136-145) mEq/L Potassium 4.2 (3.5-4.5) mEq/L Chloride 99 (98-109) mEq/L Carbon Dioxide 33 H (19-29) mEq/L BUN 15 (8-26) mg/dL Creatinine 0.74 (0.72-1.25) mg/dL Est GFR ( Amer) > 60 (> 60) Est GFR (Non-Af Amer) > 60 (> 60) BUN/Creatinine Ratio 20 (6-26) Glucose 82 (70-99) mg/dL Calculated Osmolality 286 (280-300) Calcium 9.6 (8.6-10.8) mg/dL Total Bilirubin 0.6 (0.2-1.2) mg/dL AST 58 H (5-34) Units/L ALT 151 H (0-55) Units/L Alkaline Phosphatase 159 H (38-126) Units/L Troponin I 0.00 (0-0.03) ng/mL B-Natriuretic Peptide (0-100) pg/mL Serum Total Protein 6.5 (6.0-8.3) g/dL Albumin 3.4 L (3.5-5.0) g/dL Globulin 3.1 (2.4-3.5) g/dL Albumin/Globulin Ratio 1.1 (1.1-2.2) 02/04/17 Range/Units 21:44 WBC (4.3-11.1) K/mcL RBC (4.19-5.50) M/mcL Hgb (12.9-16.9) g/dL Hct (37.5-50.1) % MCV (83.0-100.0) fL MCH (28.0-33.3) pg MCHC (31.6-35.5) g/dL RDW (11.5-14.5) % Plt Count (140-400) K/mcL MPV (9.4-12.4) fL Immature Gran % (0-4) % Seg Neutrophils % % Lymphocytes % % Monocytes % % Eosinophils % % Basophils % % Neutrophils # (1.6-8.9) K/mcL Lymphocytes # (0.6-4.6) K/mcL Monocytes # (0.0-1.3) K/mcL Eosinophils # (0.0-0.6) K/mcL Basophils # (0.0-0.2) K/mcL Sodium (136-145) mEq/L Potassium (3.5-4.5) mEq/L Chloride (98-109) mEq/L Carbon Dioxide (19-29) mEq/L BUN (8-26) mg/dL Creatinine (0.72-1.25) mg/dL Est GFR ( Amer) (> 60) Est GFR (Non-Af Amer) (> 60) BUN/Creatinine Ratio (6-26) Glucose (70-99) mg/dL Calculated Osmolality (280-300) Calcium (8.6-10.8) mg/dL Total Bilirubin (0.2-1.2) mg/dL AST (5-34) Units/L ALT (0-55) Units/L Alkaline Phosphatase (38-126) Units/L Troponin I (0-0.03) ng/mL B-Natriuretic Peptide 49 (0-100) pg/mL Serum Total Protein (6.0-8.3) g/dL Albumin (3.5-5.0) g/dL Globulin (2.4-3.5) g/dL Albumin/Globulin Ratio (1.1-2.2) Attestation Statement - Attestation Attestation: I examined this patient and my medical decision-making was reviewed with the Resident Physician. I agree with the documented findings, disposition and treatment plan as described except to the extent set forth below. [id number] time provided Patient presents by EMS for dyspnea. He has a known history of COPD. Appears mildly dyspneic on exam. Patient seen and evaluated in conjunction with the resident physician Dr. Appiah
--- NOTE | 2017-02-04 21:43 | Emergency Department Note ---
Disposition Clinical Impression: Acute exacerbation of chronic obstructive airways disease Disposition: Admitted As Inpatient Condition: Fair Forms: ED Satisfaction Letter SOB HPI - General Chief Complaint: ED Shortness of Breath/Dyspnea Stated Complaint: GER Time Seen by Provider: 02/04/17 21:25 Source: patient, EMS Limitations: no limitations Nursing Notes Reviewed: Yes Vital Signs Reviewed: Yes - History of Present Illness 61-year-old male presents to the ED complaining of shortness of breath. He has a history of emphysema. He states that earlier tonight he was having hard time breathing. He says this feels like his normal COPD exacerbation and his had in the past. He has been unable to fill his steroids for past exacerbations. He has been admitted many times before for this problem. He states this is exactly like every other time he has a hard time breathing and is a admitted for COPD exacerbation. He has never been intubated for this problem. He has no hemoptysis, history of PE, history of DVT, family history of clotting, recent long car rides. He states only chest tightness but no chest pain. With no radiation. He states no nausea vomiting. No abdominal pain, headache, blurry vision, dysuria, urinary frequency, pain to go down the arms or legs. He states he did have diarrhea for the past 2 days. Is currently taking medications for that at this time. He has no cardiac history. He is on home oxygen at all times via nasal cannula at 4 L. Still smokes. He was given one albuterol treatment by EMS during transport. - Related Data Home Medications Medication Instructions Recorded Confirmed Aspirin [Lo-Dose Aspirin EC] 81 mg PO DAILY 07/06/16 01/21/17 Baclofen [Lioresal] 10 mg PO TID 07/06/16 01/21/17 Dicyclomine [Bentyl] 20 mg PO QID PRN 07/06/16 01/21/17 Docusate [Colace] 200 mg PO BID PRN 07/06/16 01/21/17 Lactobacillus Acidophilus 1 cap PO DAILY 07/06/16 01/21/17 [Acidophilus] Melatonin [Melatin] 9 mg PO HS 07/06/16 01/21/17 Ranitidine HCl [Acid Warehouse Delivery Manager] 150 mg PO BID 07/06/16 01/21/17 hydrOXYzine HCl [Hydroxyzine HCl] 100 mg PO TID 07/06/16 01/21/17 Loratadine [Allergy Relief] 10 mg PO DAILY 09/22/16 01/21/17 Propranolol [Inderal] 10 mg PO BID 11/22/16 01/21/17 ARIPiprazole [Abilify] 10 mg PO DAILY 01/21/17 01/22/17 Acetaminophen [Tylenol] 650 mg PO Q6HR PRN 01/21/17 01/21/17 Albuterol Neb [Proventil Neb] 2.5 mg IH QID PRN 01/21/17 01/21/17 Albuterol Sulfate [Albuterol 2 puff IH Q4H PRN 01/21/17 01/21/17 Inhaler] Budesonide/Formoterol 160/4.5 2 puff IH BIDR 01/21/17 01/21/17 [Symbicort 160/4.5] Etodolac [Lodine] 400 mg PO BIDWM 01/21/17 01/21/17 Naloxone HCl [Narcan] 4 mg NS AD PRN 01/21/17 01/21/17 Naltrexone HCl [Revia] 50 mg PO HS 01/21/17 01/21/17 Nicotine Patch [Nicoderm] 14 mg TD DAILY 01/21/17 01/21/17 Nicotine Polacrilex [Nicotine 2 mg BC Q4H PRN 01/21/17 01/21/17 Lozenge] Oxybutynin [Ditropan] 5 mg PO TID 01/21/17 01/21/17 Sildenafil Citrate [Viagra] 50 mg PO AD PRN 01/21/17 01/21/17 Tiotropium [Spiriva] 18 mcg IH 0700 01/21/17 01/21/17 Previous Rx's Medication Instructions Recorded Azithromycin [Zithromax] 250 mg PO Q24H #2 tablet 01/26/17 predniSONE [PredniSONE] See Taper PO DAILY #30 tablet 01/26/17 Allergies Allergy/AdvReac Type Severity Reaction Status Date / Time haloperidol [From Haldol] AdvReac Muscle Pain Verified 01/21/17 03:41 [place] AdvReac Weakness Verified 01/21/17 03:41 Constitutional: Denies: fever, chills, weakness, weight change Eyes: Reports: as per HPI ENT ED: Denies: ear pain, throat pain, dental pain, hearing loss, epistaxis, congestion, dysphagia Cardiovascular: Reports: chest pain (Chest tightness not a pain.), dyspnea on exertion, orthopnea. Denies: palpitations, edema, syncope Respiratory: Reports: dyspnea, wheezes. Denies: cough, hemoptysis, stridor, sputum production Gastrointestinal: Reports: diarrhea (Being treated at home with medication). Denies: abdominal pain, nausea, vomiting, constipation, hematemesis, melena, hematochezia Genitourinary: Denies: urgency, dysuria, frequency, hematuria Musculoskeletal: Reports: as per HPI Integumentary: Denies: rash, abrasion, lesions Neurological: Denies: headache, weakness, numbness, paresthesias, confusion, abnormal gait, vertigo Psychiatric: Reports: other (History of bipolar.). Denies: anxiety, depression , suicidal thoughts, homicidal thoughts, auditory hallucinations, visual hallucinations Endocrine: Reports: as per HPI Hematological/Lymphatic: Denies: easy bleeding, easy bruising Past Medical History - Past Medical History Medical history: Reports: COPD, hepatitis, other Surgical history: Reports: cholecystectomy Psychiatric history: Reports: anxiety, bipolar, depression, schizophrenia - Social History Smoking Status: Current some day smoker Smokeless Tobacco Status: No Alcohol use: Reports: none Drug use: Reports: cocaine, IV Drug Use, other Physical Exam - General Limitations: no limitations General appearance: alert, in distress (Patient is sitting up in bed with nasal cannula actually working at breathing. He seems to be in distress and unable to breathe.) - Head Head exam: atraumatic, normocephalic, normal inspection - Eye Eye exam: Present: normal appearance, PERRL, EOMI - ENT ENT exam: normal exam, normal oropharynx, mucous membranes moist - Chest Chest inspection: Present: normal inspection, symmetric chest wall rise - Respiratory Respiratory exam: Present: respiratory distress (Patient is having a hard time breathing.), wheezes, accessory muscle use. Absent: stridor - Cardiovascular Cardiovascular exam: Present: regular rate, normal rhythm, normal heart sounds - Abdominal Exam Abdominal exam: Present: soft, Non-Tender, normal bowel sounds. Absent: tenderness, distention, guarding, rebound, rigidity - Skin Skin exam: Present: warm, dry, intact, normal color Course Course Narrative: 61-year-old male presents to the ED with a COPD exacerbation. We will do normal dyspnea workup including chest x-ray, repeat DuoNeb's, Solu-Medrol, BMP, BNP, CBC. There is no signs of PE. Due to patient's smoking history we will do cardiac workup ordering an EKG and troponins. Patient is agreeable to this plan. Plan as of now is to admit the patient. - Reevaluation(s) Reevaluation #1: Reevaluated patient after chest x-ray was done and do another done patient states that he can breathe a lot better at this time and he feels much better. He does not think he is going to need a BiPAP machine at this time. His pressure at this time is 88/74 we will give him a bag of normal saline to help increase his blood pressure. Vital Signs Temperature 97.7 F 02/04/17 21:24 Pulse Rate 120 02/04/17 21:24 Respiratory Rate 22 02/04/17 21:24 Blood Pressure 106/72 02/04/17 21:24 O2 Sat by Pulse Oximetry 98 02/04/17 21:24 Temperature 97.7 F 02/04/17 21:24 Pulse Rate 120 02/04/17 21:24 Respiratory Rate 22 02/04/17 21:46 Blood Pressure 106/72 02/04/17 21:24 O2 Sat by Pulse Oximetry 98 02/04/17 21:53 Oxygen Delivery Oxygen Delivery Nasal Cannula Shortness of Breath/Dyspnea - MDM Narrative Medical decision making narrative: 62-year-old male presents the ED complaining of shortness of breath from COPD exacerbation. Patient states that this is exactly like every other COPD exacerbation. We are going to treat it that way by giving him repeat DuoNeb's and steroids. Solu-Medrol. We will order a chest x-ray and labs to find causes of exacerbation. But this is most likely due to patient not taking his medications as [facility] He is also still a smoker. Patient has no history of PE there are no signs of hemoptysis, long car ride, history of clots or PEs will not do a PE workup at this time. Due to patient smoking will add cardiac workup and this by doing an EKG, BNP, troponins. Patient is agreeable to this plan. Due to patient's work of breathing he most likely will need to be admitted. If DuoNeb do not help his work of breathing will consider putting patient on BiPAP as he states that has worked in past [id number] came back negative for showing any cause of the acute exacerbation. Chest x-ray only showed chronic issues and no pneumonia. After his 2 DuoNeb's he states that he could breathe a little bit better but is not back to baseline. There were no signs that this could be a cardiac issue. Contacted Dr. Armas who agreed to admit the patient. Patient is okay with being admitted at this time. - Differential Diagnosis Likely: acute exacerbation of chronic obstructive airways disease - Medical Records Medical records reviewed: Yes I reviewed the patient's medical records. - Lab Data Lab results reviewed: Yes I reviewed the patient's lab results. Result diagrams: 02/04/17 21:44 Lab Results 02/04/17 Range/Units 21:44 WBC 7.1 (4.3-11.1) K/mcL RBC 4.01 L (4.19-5.50) M/mcL Hgb 12.2 L (12.9-16.9) g/dL Hct 36.8 L (37.5-50.1) % MCV 91.8 (83.0-100.0) fL MCH 30.4 (28.0-33.3) pg MCHC 33.2 (31.6-35.5) g/dL RDW 13.1 (11.5-14.5) % Plt Count 173 (140-400) K/mcL MPV 9.1 L (9.4-12.4) fL Immature Gran % 0.3 (0-4) % Seg Neutrophils % 52.6 % Lymphocytes % 34.3 % Monocytes % 11.5 % Eosinophils % 1.0 % Basophils % 0.3 % Neutrophils # 3.8 (1.6-8.9) K/mcL Lymphocytes # 2.5 (0.6-4.6) K/mcL Monocytes # 0.8 (0.0-1.3) K/mcL Eosinophils # 0.1 (0.0-0.6) K/mcL Basophils # 0.0 (0.0-0.2) K/mcL - Radiology Data Radiology results reviewed: Yes I reviewed the patient's radiology results. - EKG Data EKG attestation: Yes I reviewed and interpreted this EKG. EKG results narrative: EKG done 2219 shows sinus tachycardia. Rate 112, DE interval 145, QRS 85, QTC 371, normal axes. No acute ST changes. No acute T-wave changes. No signs of WPW or Brugada syndrome. Compared with old EKG done 01/21/17 shows no acute changes or any difference. EKG shows normal: Reports: sinus rhythm Rate: Reports: tachycardia Rhythm: Reports: NSR [place]/QRS: Reports: normal When compared to previous EKG there are: no significant changes Interpretation: Reports: no acute changes
[2017-02-04 21:50] LABS: Basophils % 0.3 %; Eosinophils # 0.1 K/mcL (0.0-0.6); Hematocrit 36.8 % (37.5-50.1); Hemoglobin 12.2 g/dL (12.9-16.9); Immature Granulocytes % 0.3 % (0-4); Lymphocytes # 2.5 K/mcL (0.6-4.6); Lymphocytes % 34.3 %; Mean Corpuscular HGB Conc 33.2 g/dL (31.6-35.5); Mean Corpuscular Hemoglobin 30.4 pg (28.0-33.3); Mean Corpuscular Volume 91.8 fL (83.0-100.0); Mean Platelet Volume 9.1 fL (9.4-12.4); Monocytes # 0.8 K/mcL (0.0-1.3); Monocytes % 11.5 %; Neutrophils # 3.8 K/mcL (1.6-8.9); Platelet Count 173 K/mcL (140-400); Red Blood Count 4.01 M/mcL (4.19-5.50); Red Cell Distribution Width 13.1 % (11.5-14.5); Segmented Neutrophils % 52.6 %
[2017-02-04 22:05] LABS: Alanine Aminotransferase 151 Units/L (0-55); Albumin 3.4 g/dL (3.5-5.0); Albumin/Globulin Ratio 1.1 (1.1-2.2); Alkaline Phosphatase 159 Units/L (38-126); Aspartate Amino Transferase 58 Units/L (5-34); BUN/Creatinine Ratio 20 (6-26); Bilirubin,Total 0.6 mg/dL (0.2-1.2); Blood Urea Nitrogen 15 mg/dL (8-26); Calcium 9.6 mg/dL (8.6-10.8); Carbon Dioxide 33 mEq/L (19-29); Chloride 99 mEq/L (98-109); Globulin 3.1 g/dL (2.4-3.5); Glucose 82 mg/dL (70-99); Osmolality,Calculated 286 (280-300); Potassium 4.2 mEq/L (3.5-4.5); Sodium 138 mEq/L (136-145); Total Protein 6.5 g/dL (6.0-8.3); eGFR For African Americans > 60 (> 60); eGFR For Non-African Americans > 60 (> 60)
[2017-02-04] MEDS ORDERED: 0.9 % Sodium Chloride 1,000 ML IVC ONE (22:12)
--- NOTE | 2017-02-04 22:55 | Internal Med History&Physical ---
<LizJosiah - Last Filed: 02/04/17 23:13> Date of Encounter: 02/04/17 Time of Encounter: 22:49 Assessment and Plan (1) Acute respiratory failure with hypoxia Current visit: No Status: Resolved 61-year-old male with known COPD with 2.5 L oxygen baseline. Admitted with tachypnea, dyspnea, requiring increased oxygen demand to 4 L nasal cannula oxygen. Hypoxia likely secondary to COPD exacerbation. (2) Acute exacerbation of chronic obstructive airways disease Current visit: No Status: Acute Patient presents with acute COPD exacerbation, tachypnea, dyspnea, increased oxygen demand, diffuse inspiratory and expiratory wheezes with diminished bronchial vesicular breath sounds. - Chest x-ray does not demonstrate any acute cardiopulmonary process. - Concerning factors include daily tobacco abuse and medical noncompliance. - Review of patient's records demonstrate recurrent COPD exacerbations monthly. Plan: Maintain oxygens nasal cannula as tolerated to maintain oxygen saturations between 89 and 92%. - By mouth Levaquin 750 mg daily - Solu-Medrol 80 mg every 8 hours - Scheduled DuoNeb and Proventil nebulizers - Continue Symbicort inhaler (3) Tobacco abuse Current visit: No Status: Chronic Patient has a chronic history of tobacco abuse with current COPD exacerbation. - Currently smokes 10 cigarettes per day with a history of smoking up to a pack and a half daily. - Smoking cessation discussed. (4) Resting tremor Current visit: No Status: Chronic Patient has a resting tremor, at baseline. Plan: -Continue home dose of propranolol. (5) Bipolar disease, chronic Current visit: No Status: Chronic Known history of bipolar disorder, currently without manic or depressive episode. Plan: - Continue home medications. (6) Cocaine abuse Current visit: No Status: Chronic Patient admits to a history of cocaine abuse at the last dose roughly 4-5 days ago. (7) DVT prophylaxis Current visit: No Status: Acute Subcutaneous Lovenox 40 mg daily. Internal Medicine - H&P: HPI Chief complaint: short of breath Admitted From: Emergency Dept Plans for Post Hospital Care: Home History of present illness: Mr. Sosa is a 61 year old male past medical history of COPD, bipolar, drug abuse, tobacco abuse admitted to the general medical floor with increased shortness of breath and wheezing. Mr. Sosa says over the past 3-4 days he has been very short of breath increased use of his nebulizer machine at home up to 5 times per day, increased albuterol inhaler regularly use of his long- acting inhaler. He has had a diaphoresis, cough with his wheezing and shortness of breath but denies any chest pain, chest pressure or productive sputum. He describes his shortness of breath episode very similar to his previous COPD exacerbations. He continues to smoke 10 cigarettes per day but says he is down from a pack and a half a day. 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 He notes that he is on 2.5 L oxygen at baseline. He denies any alcohol use but said that he last used cocaine 4 or 5 days ago and that it should be out of her system by now. He denies any other substance use or any other concerning symptoms at this time. Past Med Surg Social Fam HX - Past Medical History Medical history: COPD, hepatitis, other Psychiatric history: anxiety, bipolar, depression, schizophrenia - Past Surgical History Surgical History: cholecystectomy - Social History Smoking Status: Current some day smoker Smokeless Tobacco Status: No Alcohol use: none Drug use: cocaine, IV Drug Use, other - Family History Mother Adopted: No Family Member Ethnicity: Non- Living Status: Hx Family Cardiac Disorders: Yes Hx Family Respiratory Disorders: Yes (dad emphezema) Hx Family Cancer: Yes (lung CA) Hx Family GI Disorders: No Hx Family Endocrine Disorder: Yes (DM) Hx Family Neuromuscular Disorders: No Hx Family Neurologic Disorders: No Hx Family HEENT Disorders: No Hx Family Autoimmune Disorders: No Father Family Member Ethnicity: Non- Living Status: Hx Family Cancer: Yes (Lung cancer) Brother Family Member Ethnicity: Non- Living Status: Still Living Hx Family Respiratory Disorders: Yes (Emphysema) Sister Family Member Ethnicity: Non- Living Status: Still Living Internal Medicine - H&P: Meds Aspirin [Lo-Dose Aspirin EC] 81 mg PO DAILY 07/06/16 [History] Baclofen [Lioresal] 10 mg PO TID 07/06/16 [History] Dicyclomine [Bentyl] 20 mg PO QID PRN 07/06/16 [History] Docusate [Colace] 200 mg PO BID PRN 07/06/16 [History] Lactobacillus Acidophilus [Acidophilus] 1 cap PO DAILY 12/17/16 [History] Melatonin [Melatin] 9 mg PO HS 07/06/16 [History] Ranitidine HCl [Acid Military Lawyer] 150 mg PO BID 07/06/16 [History] hydrOXYzine HCl [Hydroxyzine HCl] 100 mg PO TID 07/06/16 [History] Loratadine [Allergy Relief] 10 mg PO DAILY 09/22/16 [History] Propranolol [Inderal] 10 mg PO BID 11/22/16 [History] ARIPiprazole [Abilify] 10 mg PO DAILY 01/21/17 [History] Acetaminophen [Tylenol] 650 mg PO Q6HR PRN 01/21/17 [History] Albuterol Neb [Proventil Neb] 2.5 mg IH QID PRN 01/21/17 [History] Albuterol Sulfate [Albuterol Inhaler] 2 puff IH Q4H PRN 01/21/17 [History] Budesonide/Formoterol 160/4.5 [Symbicort 160/4.5] 2 puff IH BIDR 01/21/17 [ History] Etodolac [Lodine] 400 mg PO BIDWM 01/21/17 [History] Naloxone HCl [Narcan] 4 mg NS AD PRN 01/21/17 [History] Naltrexone HCl [Revia] 50 mg PO HS 01/21/17 [History] Nicotine Patch [Nicoderm] 14 mg TD DAILY 01/21/17 [History] Nicotine Polacrilex [Nicotine Lozenge] 2 mg BC Q4H PRN 01/21/17 [History] Oxybutynin [Ditropan] 5 mg PO TID 01/21/17 [History] Sildenafil Citrate [Viagra] 50 mg PO AD PRN 01/21/17 [History] Tiotropium [Spiriva] 18 mcg IH 0700 01/21/17 [History] predniSONE [PredniSONE] See Taper PO DAILY #30 tablet 01/26/17 [Rx] Allergies haloperidol [From Haldol] Adverse Reaction (Verified 01/21/17 03:41) Muscle Pain [place] Adverse Reaction (Verified 01/21/17 03:41) Weakness All Systems PM: A 10-system review of systems was performed and is negative for pertinent findings except as documented above in the HPI. - Constitutional Constitutional: excessive sweating, no chills, no fever(s), no night sweats - EENT Eyes: no change in vision, no discharge, no pain, no photophobia Ears: no ear discharge, no ear pain, no tinnitus Nose, mouth and throat: no dysphagia, no nasal discharge, no neck pain, no sore throat - Cardiovascular Cardiovascular ROS IM: dyspnea, dyspnea on exertion, no chest pain, no diaphoresis, no lightheadedness, no palpitations, no syncope - Respiratory Respiratory: cough, dyspnea, dyspnea on exertion, wheezing, no excessive phlegm production - Gastrointestinal Gastrointestinal: constipation, no abdominal pain, no diarrhea, no hematemesis, no hematochezia, no melena, no nausea, no vomiting - Musculoskeletal Musculoskeletal ROS IM: no numbness, no tingling - Integumentary Integumentary IM: no rash, no unusual bruising - Neurological Neurological ROS: no confusion, no convulsions, no focal weakness, no numbness, no tingling, no tremor(s) - Hematologic/Lymphatic Hematologic/Lymphatic: no easy bruising - Constitutional Vitals: Temp Pulse Resp BP Pulse Ox 97.7 F 120 20 104/77 98 02/04/17 21:24 02/04/17 21:24 02/04/17 22:45 02/04/17 22:45 02/04/17 21:53 Exam: General: Patient alert, awake, oriented 3, interactive, in no acute distress HEENT: Normocephalic, atraumatic, pupils equal reactive to light, nasal cavity patent and open septum median position, neck supple trachea midline no palpable lymphadenopathy, no thyromegaly. Chest: Symmetric bilateral correlating with respiratory effort, effort nonlabored. Cardiac: Tachycardic, positive S1 and S2. no bruits appreciated bilateral carotids, Radial pulses 2+ bilateral, posterior tibial and dorsal pedal pulses 2 + bilateral. Respiratory: Reduced bronchial vesicular breath sounds with diffuse inspiratory and expiratory wheeze. No rhonchi appreciated. Abdomen: Soft, nontender, positive bowel sounds, no palpable masses appreciated on examination Extremities: Symmetric bilateral, bilateral lower extremities without erythema or edema patient moving all 4 extremities spontaneously. Neurologic: No focal deficits appreciated on examination. Face symmetric, muscle strength symmetric bilateral upper and lower extremities. Internal Med - H&P Results - Labs CBC & Chem 7: 02/04/17 21:44 02/04/17 21:44 <Jadiel Teixeira - Last Filed: 02/05/17 01:21> Date of Encounter: 02/05/17 Internal Medicine - H&P: HPI History of present illness: Mr. Sosa is a 61 year old male All Systems PM: A 10-system review of systems was performed and is negative for pertinent findings except as documented above in the HPI. - Constitutional Vitals: Temp Pulse Resp BP Pulse Ox 97.7 F 117 16 113/57 99 02/04/17 23:20 02/04/17 23:20 02/04/17 23:20 02/04/17 23:20 02/05/17 00:02 Internal Med - H&P Results - Labs CBC & Chem 7: 02/04/17 21:44 02/04/17 21:44 - Attending Attestation I have seen and examined the patient. I have discussed about the patient with Dr Hill. I have reviewed the orders and the note. Patient is a 61 year old male with PMH of advanced COPD, chronic Hep C, schizophrenia, anxiety and depression. He presents to the ED with complaints of shortness of breath. Patient states symptoms started about 2-4 days ago but got worse about 24 hours ago. He states shortness of breath is worse with exertion. It is also present at rest. He also complains of a cough but no sputum production. Patient has been admitted multiple times for similar complaints. He is being admitted this time for COPD exacerbation. He will be on IV steroids and DuoNeb breathing treatment. Patient has been explained about his condition and planned care. He understood and agreed. No unanswered questions. CODE STATUS full code.
[2017-02-04] MEDS ORDERED: Naloxone 0.4 MG/ML INJ IVP PRN (23:05)
[2017-02-04] MEDS ORDERED: Ondansetron ODT 4 MG TAB.RAPDIS SL PRN (23:05)
[2017-02-04] MEDS ORDERED: Acetaminophen 325 MG TABLET PO PRN (23:05)
[2017-02-04] MEDS ORDERED: Albuterol 2.5 MG/3 ML NEBULIZER IH PRN (23:09)
[2017-02-05] MEDS: methylPREDNISolone 125 MG/2 ML VIAL IVP SCH ×3 (00:14→16:00)
[2017-02-05] MEDS ORDERED: NALOXONE HCL 4 MG NS PRN (01:02)
[2017-02-05] MEDS: Ipratropium/Albuterol Neb 3 ML IH SCH ×4 (03:54→21:57)
[2017-02-05] MEDS: *HR* Enoxaparin 40 MG/0.4 ML SYRINGE SQ SCH (05:31)
[2017-02-05] MEDS: Tiotropium 18 MCG inhalation IH SCH (05:33)
[2017-02-05 06:56] LABS: Hematocrit 33.9 % (37.5-50.1); Hemoglobin 10.7 g/dL (12.9-16.9); Mean Corpuscular HGB Conc 31.6 g/dL (31.6-35.5); Mean Corpuscular Hemoglobin 29.6 pg (28.0-33.3); Mean Corpuscular Volume 93.6 fL (83.0-100.0); Mean Platelet Volume 9.2 fL (9.4-12.4); Platelet Count 164 K/mcL (140-400); Red Blood Count 3.62 M/mcL (4.19-5.50)
[2017-02-05 06:59] LABS: Alanine Aminotransferase 126 Units/L (0-55); Albumin 2.8 g/dL (3.5-5.0); Alkaline Phosphatase 153 Units/L (38-126); Aspartate Amino Transferase 43 Units/L (5-34); BUN/Creatinine Ratio 19 (6-26); Bilirubin,Total 0.5 mg/dL (0.2-1.2); Blood Urea Nitrogen 16 mg/dL (8-26); Calcium 8.8 mg/dL (8.6-10.8); Carbon Dioxide 32 mEq/L (19-29); Chloride 99 mEq/L (98-109); Globulin 2.9 g/dL (2.4-3.5); Glucose 255 mg/dL (70-99); Osmolality,Calculated 292 (280-300); Potassium 4.5 mEq/L (3.5-4.5); Sodium 136 mEq/L (136-145); Total Protein 5.7 g/dL (6.0-8.3); eGFR For African Americans > 60 (> 60); eGFR For Non-African Americans > 60 (> 60)
[2017-02-05 08:14] LABS: Lymphocytes # 0.2 K/mcL (0.6-4.6); Monocytes # 0.1 K/mcL (0.0-1.3); Neutrophils # 4.2 K/mcL (1.6-8.9); Platelet Estimate Normal (Normal)
[2017-02-05] MEDS: Aspirin Enteric Coated 81 MG Tablet PO SCH (09:40)
[2017-02-05] MEDS: levoFLOXacin 750 MG TABLET PO SCH (09:40)
[2017-02-05] MEDS: ARIPiprazole 10 MG TABLET PO SCH (09:40)
[2017-02-05] MEDS: Loratadine 10 MG TABLET PO SCH (09:40)
[2017-02-05] MEDS: Lactobacillus 1 EACH CAP.SPRINK PO SCH (09:40)
[2017-02-05] MEDS: Nicotine 14 MG PATCH.TD24 TD SCH (09:40)
[2017-02-05] MEDS: Budesonide/Formoterol 160/4.5 MDI IH SCH ×2 (10:52→21:57)
[2017-02-05] MEDS: hydrOXYzine pamoate 25 MG CAPSULE PO PRN ×2 (11:47→21:46)
--- NOTE | 2017-02-05 18:20 | Internal Med Progress Note ---
Date of Encounter: 02/05/17 Time of Encounter: 10:30 - Assessment and plan (1) Acute respiratory failure with hypoxia Current Visit: Yes Status: Acute Assessment and plan: Patient with increased oxygen demand. Increase supplemental oxygen at home to 4 L at times. Normally wears 2-1/2 L, is currently wearing 3 here. We will attempt to wean and monitor. Continuous pulse ox and telemetry. (2) Acute exacerbation of chronic obstructive airways disease Current Visit: No Status: Acute Assessment and plan: Current exacerbation COPD, emphysema. Normally wears 2-1/2 L of oxygen at home. He is wearing 3 L here. He is admitted with tachypnea, dyspnea, increased oxygen demand for the last week. Treat with antibiotics, steroids, breathing treatments, and subliminal oxygen. Continue telemetry. Continue to monitor patient's condition. (3) Tobacco abuse Current Visit: No Status: Chronic Assessment and plan: We will discuss smoking cessation prior to discharge. (4) Anxiety Current Visit: Yes Status: Chronic Assessment and plan: Chronic. Continue home medications. (5) Resting tremor Current Visit: No Status: Chronic Assessment and plan: Chronic. Patient denies any changes, states is at baseline. Continue home dose of beta adrian. (6) Chronic hepatitis C Current Visit: No Status: Chronic Assessment and plan: Patient states that he is not being treated at this time. ALT and AST are elevated, decreased from admission. Patient has follow-up appointment with KATHARINE with his primary care, Lulú, on February 10. Qualifiers: Hepatic coma status: without hepatic coma Qualified Code(s): B18.2 - Chronic viral hepatitis C (7) Cocaine abuse Current Visit: No Status: Chronic Assessment and plan: Per drug screen. Patient admits that he last used approximate 4-5 days ago. (8) Schizoaffective disorder, bipolar type Current Visit: No Status: Chronic Assessment and plan: Chronic. Continue home medications. (9) DVT prophylaxis Current Visit: No Status: Acute Assessment and plan: Lovenox subcutaneous daily. - Time Spent With Patient less than 15 minutes - Subjective Interval history: Patient was seen and assessed at 10:30 today. He is resting quietly in bed. He is alert and oriented, answers all questions appropriately. He is wheezing in all lung temple both anteriorly and posteriorly. Patient states he knows he is not ready to go home. He has home O2 liters, he is wearing 3 L here. He states that he is not being seen anywhere for his hepatitis. He states that he has an appointment with his primary care physician whose name is Lulú, at the [facility] on February 10. Patient is ambulatory in his room, denies chest pain, does become short of breath with exertion. - Constitutional Vitals: Temp Pulse Resp BP Pulse Ox 98.6 F 66 15 104/63 98 02/05/17 15:42 02/05/17 15:42 02/05/17 15:42 02/05/17 15:42 02/05/17 15:42 General appearance: Present: cooperative, mild distress, A&O X 3, pleasant, answers questions appropriately - Head Head exam: Present: normal inspection - Eye Eye exam: Present: EOMI, normal appearance, conjuntiva pink - ENT ENT exam: Present: mucous membranes moist, normal exam - Respiratory Respiratory exam: Present: wheezes. Absent: chest wall tenderness, decreased breath sounds, CTAB, rales, respiratory distress, rhonchi, stridor, tachypnea - Cardiovascular Cardiovascular exam: Present: RRR, +S1, +S2. Absent: diastolic murmur, systolic murmur - GI/Abdominal GI/Abdominal exam: Present: normal bowel sounds, soft. Absent: distended, hepatomegaly, tenderness - Extremities Exam Extremities exam: Present: normal inspection, warm, radial pulses palpable and symetrical. Absent: pedal edema, tenderness - Neurological Exam Neurological exam: Present: alert, oriented X3, no focal deficits, strengths equal and symetr throughout. Absent: facial droop, speech deficit - Skin Skin exam: Present: dry, intact, warm Internal Medicine: Result - Labs CBC & Chem 7: 02/05/17 05:39 02/05/17 05:39 Labs: Short CBC 02/05/17 Range/Units 05:39 WBC 4.5 (4.3-11.1) K/mcL Hgb 10.7 L D (12.9-16.9) g/dL Hct 33.9 L (37.5-50.1) % Plt Count 164 (140-400) K/mcL Neutrophils # 4.2 (1.6-8.9) K/mcL BMP 02/05/17 05:39 Sodium 136 Potassium 4.5 Chloride 99 Carbon Dioxide 32 H BUN 16 Creatinine 0.83 Glucose 255 H Calcium 8.8 Liver Function 02/05/17 Range/Units 05:39 Total Bilirubin 0.5 (0.2-1.2) mg/dL AST 43 H (5-34) Units/L ALT 126 H (0-55) Units/L Alkaline Phosphatase 153 H (38-126) Units/L Albumin 2.8 L (3.5-5.0) g/dL Consult Discharge Plan - Plan [facility]errals: [facility] [Primary Care Provider] -
[2017-02-05] MEDS: Melatonin 3 MG TABLET PO SCH (21:46)
[2017-02-05] MEDS: Naltrexone Hcl [Revia] 50 MG PO SCH (21:49)
[2017-02-06] MEDS: methylPREDNISolone 125 MG/2 ML VIAL IVP SCH ×2 (00:20→08:35)
[2017-02-06] MEDS: Ipratropium/Albuterol Neb 3 ML IH SCH ×4 (04:16→22:28)
[2017-02-06 06:02] LABS: Hematocrit 28.6 % (37.5-50.1); Hemoglobin 9.8 g/dL (12.9-16.9); Immature Granulocytes % 0.2 % (0-4); Lymphocytes # 0.4 K/mcL (0.6-4.6); Lymphocytes % 7.2 %; Mean Corpuscular HGB Conc 34.3 g/dL (31.6-35.5); Mean Corpuscular Volume 90.5 fL (83.0-100.0); Mean Platelet Volume 9.7 fL (9.4-12.4); Monocytes # 0.2 K/mcL (0.0-1.3); Monocytes % 2.8 %; Neutrophils # 5.5 K/mcL (1.6-8.9); Platelet Count 138 K/mcL (140-400); Red Blood Count 3.16 M/mcL (4.19-5.50); Red Cell Distribution Width 12.7 % (11.5-14.5); Segmented Neutrophils % 89.8 %
[2017-02-06 06:13] LABS: BUN/Creatinine Ratio 26 (6-26); Blood Urea Nitrogen 19 mg/dL (8-26); Calcium 8.7 mg/dL (8.6-10.8); Chloride 95 mEq/L (98-109); Glucose 321 mg/dL (70-99); Osmolality,Calculated 295 (280-300); Sodium 135 mEq/L (136-145); eGFR For African Americans > 60 (> 60); eGFR For Non-African Americans > 60 (> 60)
[2017-02-06 06:16] LABS: Carbon Dioxide 40 mEq/L (19-29)
[2017-02-06] MEDS: *HR* Enoxaparin 40 MG/0.4 ML SYRINGE SQ SCH (06:27)
[2017-02-06] MEDS: Tiotropium 18 MCG inhalation IH SCH (08:09)
[2017-02-06] MEDS: Lactobacillus 1 EACH CAP.SPRINK PO SCH (08:35)
[2017-02-06] MEDS: Nicotine 14 MG PATCH.TD24 TD SCH (08:35)
[2017-02-06] MEDS: ARIPiprazole 10 MG TABLET PO SCH (08:35)
[2017-02-06] MEDS: levoFLOXacin 750 MG TABLET PO SCH (08:35)
[2017-02-06] MEDS: Aspirin Enteric Coated 81 MG Tablet PO SCH (08:35)
[2017-02-06] MEDS: Loratadine 10 MG TABLET PO SCH (08:35)
[2017-02-06] MEDS: hydrOXYzine pamoate 25 MG CAPSULE PO PRN ×2 (08:43→15:24)
[2017-02-06 10:01] LABS: Bilirubin,Urine Negative (Negative); Blood,Urine Negative (Negative); Clarity,Urine Clear (Clear); Color,Urine Yellow (Yellow); Glucose,Urine (UA) >=1000 mg/dL (Normal); Ketones,Urine Negative (Negative); Leukocyte Esterase,Urine Negative (Negative); Nitrite,Urine Negative (Negative); Protein,Urine Negative (Neg-Trace); Specific Gravity,Urine 1.028 (1.010-1.025); Urobilinogen,Urine Normal (Normal)
[2017-02-06] MEDS: Budesonide/Formoterol 160/4.5 MDI IH SCH ×2 (10:58→22:28)
--- NOTE | 2017-02-06 11:52 | Electrocardiograph Report ---
[address] [address] Test Date: 2017-02-04 Pat Name: Pa Sosa Department: 103 Room: 3B46 Gender: M Puller Over: [facility] : 1955 Requested By: Cyril Jenkins Order Number: [id number] Reading MD: Cristo Gabriel MD Measurements Intervals [place] Rate: 112 P: 84 SC: 145 QRS: 61 QRSD: 85 T: 67 QT: 305 QTc: 371 Interpretive Statements SINUS TACHYCARDIA RIGHT ATRIAL ENLARGEMENT INDETERMINATE AXIS Electronically Signed On 02-06-2017 11:51:07 EDT by Cristo Gabriel MD
--- NOTE | 2017-02-06 13:53 | Internal Med Progress Note ---
Date of Encounter: 02/06/17 Time of Encounter: 10:35 - Assessment and plan (1) Acute respiratory failure with hypoxia Current Visit: Yes Status: Acute Assessment and plan: Patient with increased oxygen demand. Increase supplemental oxygen at home to 4 L at times. Normally wears 2-1/2 L, is currently wearing 2 here. We will continue to monitor. Continuous pulse ox and telemetry. (2) Acute exacerbation of chronic obstructive airways disease Current Visit: No Status: Acute Assessment and plan: Current exacerbation COPD, emphysema. Normally wears 2-1/2 L of oxygen at home. He is wearing 3 L here. He is admitted with tachypnea, dyspnea, increased oxygen demand for the last week. Treat with antibiotics, steroids, breathing treatments, and subliminal oxygen. I am going to convert him to by mouth steroids today and begin his taper for home. Continue telemetry. Continue to monitor patient's condition. (3) Tobacco abuse Current Visit: No Status: Chronic Assessment and plan: We will discuss smoking cessation prior to discharge. (4) Anxiety Current Visit: Yes Status: Chronic Assessment and plan: Chronic. Continue home medications. (5) Resting tremor Current Visit: No Status: Chronic Assessment and plan: Chronic. Patient denies any changes, states is at baseline. Continue home dose of beta adrian. (6) Chronic hepatitis C Current Visit: No Status: Chronic Assessment and plan: Patient states that he is not being treated at this time. ALT and AST are elevated, decreased from admission. Patient has follow-up appointment with KATHARINE with his primary care, Lulú, on February 10. Qualifiers: Hepatic coma status: without hepatic coma Qualified Code(s): B18.2 - Chronic viral hepatitis C (7) Cocaine abuse Current Visit: No Status: Chronic Assessment and plan: Per drug screen. Patient admits that he last used approximate 4-5 days ago. (8) Schizoaffective disorder, bipolar type Current Visit: No Status: Chronic Assessment and plan: Chronic. Continue home medications. (9) DVT prophylaxis Current Visit: No Status: Acute Assessment and plan: Lovenox and aspirin have been stopped due to positive occult blood in stool and anemia. Calf pumps have been ordered. Patient is also ambulatory. (10) Anemia Current Visit: Yes Status: Acute Assessment and plan: Patient reports that he has had rectal bleeding and dark tarry stools for months. He has not sought any treatment. Hemoglobin has dropped from 12.2-9.8 in 2 days. Patient is not receiving IV fluids at this time, but did receive 1 L fluid bolus in the emergency department 2 nights ago. His abdomen is soft and nontender without cramping or pain. I did not palpate internal hemorrhoids in order to visualize external hemorrhoids. Patient states that he notices bright red blood mixed with stool and when he wipes. His urine is negative for blood. I have stopped Lovenox and aspirin. Monitor labs in the a.m. Consider surgical consult if further drop in hemoglobin. Qualifiers: Anemia type: unspecified type Qualified Code(s): D64.9 - Anemia, unspecified - Subjective Interval history: Patient was seen and assessed at 10:35 AM. Patient for the most part is ready to go home. He states he does not want to go home and is requesting another day in the hospital. He does have wheezing posteriorly in bilateral bases, but also forces wheezing in his upper airway by exhaling hard. Patient reports dark tarry stools and dark urine for once, he has never been seen for in the past. His stool was positive for blood, urine was negative for blood. His hemoglobin has dropped from 12.2-9.8 on arrival. I did a rectal exam and not find any external or internal hemorrhoids. She denies abdominal pain, nausea, incontinence, vomiting, diarrhea. He says that he does notice bright red blood when he wipes, blood is also mixed in with stool. Will make surgical consult. - Constitutional Vitals: Temp Pulse Resp BP Pulse Ox 98.0 F 86 15 111/68 100 02/06/17 11:06 02/06/17 11:06 02/06/17 11:06 02/06/17 11:06 02/06/17 11:06 General appearance: Present: cooperative, mild distress, A&O X 3, pleasant, no acute distress, answers questions appropriately - Head Head exam: Present: normal inspection - Eye Eye exam: Present: EOMI, normal appearance, conjuntiva pink - ENT ENT exam: Present: mucous membranes moist, normal exam, normal external ear exam - Neck Neck exam general surgery: Absent: lymphadenopathy, tenderness - Respiratory Respiratory exam: Present: wheezes. Absent: chest wall tenderness, decreased breath sounds, prolonged expiratory phase, rales, respiratory distress, rhonchi , stridor, tachypnea - Cardiovascular Cardiovascular exam: Present: RRR, +S1, +S2. Absent: clicks, diastolic murmur, gallop, systolic murmur - GI/Abdominal GI/Abdominal exam: Present: normal bowel sounds. Absent: hepatomegaly, soft, tenderness - Rectal Rectal exam: Present: heme (+) stool, normal inspection, normal rectal tone. Absent: fecal impaction, hemorrhoids, mass - Extremities Exam Extremities exam: Present: warm, radial pulses palpable and symetrical. Absent : pedal edema, tenderness - Neurological Exam Neurological exam: Present: alert, oriented X3, no focal deficits. Absent: facial droop, speech deficit - Skin Skin exam: Present: dry, intact, normal color, warm. Absent: rash Internal Medicine: Result - Labs CBC & Chem 7: 02/06/17 05:25 02/06/17 05:25 Labs: Short CBC 02/06/17 Range/Units 05:25 WBC 6.1 (4.3-11.1) K/mcL Hgb 9.8 L (12.9-16.9) g/dL Hct 28.6 L (37.5-50.1) % Plt Count 138 L (140-400) K/mcL Neutrophils # 5.5 (1.6-8.9) K/mcL BMP 02/06/17 05:25 Sodium 135 L Potassium 4.0 Chloride 95 L Carbon Dioxide 40 H* BUN 19 Creatinine 0.74 Glucose 321 H Calcium 8.7 Urine 02/06/17 Range/Units 09:45 Urine Color Yellow (Yellow) Urine Clarity Clear (Clear) Urine pH 6.0 (5.0-8.0) pH Units Ur Specific [place] 1.028 H (1.010-1.025) Urine Protein Negative (Neg-Trace) mg/dL Urine Glucose (UA) >=1000 H (Normal) mg/dL Consult Discharge Plan - Plan [facility]errals: [facility] [Primary Care Provider] -
[2017-02-06] MEDS: Melatonin 3 MG TABLET PO SCH (20:30)
[2017-02-06] MEDS: Naltrexone Hcl [Revia] 50 MG PO SCH (20:31)
[2017-02-07] MEDS: Ipratropium/Albuterol Neb 3 ML IH SCH ×3 (03:26→15:30)
[2017-02-07 05:03] LABS: Hematocrit 30.8 % (37.5-50.1); Hemoglobin 10.2 g/dL (12.9-16.9); Immature Granulocytes % 0.3 % (0-4); Lymphocytes # 0.8 K/mcL (0.6-4.6); Lymphocytes % 12.5 %; Mean Corpuscular HGB Conc 33.1 g/dL (31.6-35.5); Mean Corpuscular Hemoglobin 30.3 pg (28.0-33.3); Mean Corpuscular Volume 91.4 fL (83.0-100.0); Mean Platelet Volume 9.5 fL (9.4-12.4); Monocytes # 0.5 K/mcL (0.0-1.3); Monocytes % 6.7 %; Neutrophils # 5.4 K/mcL (1.6-8.9); Platelet Count 131 K/mcL (140-400); Red Blood Count 3.37 M/mcL (4.19-5.50); Segmented Neutrophils % 80.5 %
[2017-02-07] MEDS: Tiotropium 18 MCG inhalation IH SCH (05:09)
[2017-02-07 05:16] LABS: BUN/Creatinine Ratio 23 (6-26); Blood Urea Nitrogen 19 mg/dL (8-26); Calcium 8.8 mg/dL (8.6-10.8); Carbon Dioxide 35 mEq/L (19-29); Chloride 97 mEq/L (98-109); Glucose 356 mg/dL (70-99); Osmolality,Calculated 301 (280-300); Potassium 3.8 mEq/L (3.5-4.5); Sodium 137 mEq/L (136-145); eGFR For African Americans > 60 (> 60); eGFR For Non-African Americans > 60 (> 60)
[2017-02-07] MEDS: Lactobacillus 1 EACH CAP.SPRINK PO SCH (08:46)
[2017-02-07] MEDS: levoFLOXacin 750 MG TABLET PO SCH (08:46)
[2017-02-07] MEDS: Nicotine 14 MG PATCH.TD24 TD SCH (08:46)
[2017-02-07] MEDS: ARIPiprazole 10 MG TABLET PO SCH (08:47)
[2017-02-07] MEDS: Loratadine 10 MG TABLET PO SCH (08:47)
[2017-02-07] MEDS: hydrOXYzine pamoate 25 MG CAPSULE PO PRN ×2 (08:51→15:28)
[2017-02-07] MEDS ORDERED: predniSONE 20 MG TABLET PO SCH (09:00)
[2017-02-07] MEDS: Budesonide/Formoterol 160/4.5 MDI IH SCH (09:49)
[2017-02-07 11:03] VITALS: BP 113/74
--- NOTE | 2017-02-07 14:48 | Discharge Summary ---
Date of Encounter: 02/07/17 Time of Encounter: 10:50 - Discharge Diagnosis (1) Acute exacerbation of chronic obstructive airways disease Priority: Primary Status: Acute Comments: Patient was to half liters of oxygen at home. He has been weaned to 2-1/2 L here. He speaks easily in full sentences today. He states that he is feeling better. He does have a productive cough with clear sputum today. His We will continue to treat him with antibiotics, steroids, breathing treatments, supplemental oxygen, and I will give him guaifenesin for home. Patient has a follow-up appoint with primary care on Friday. (2) Acute respiratory failure with hypoxia Priority: Primary Status: Acute Comments: Patient requires supplemental oxygen to maintain sats greater than 92%. He was treated half liters at home. He will go home on same amount. (3) Tobacco abuse Priority: Secondary Status: Chronic Comments: Patient denies need for desire for smoking cessation materials or tools. (4) Anxiety Priority: Secondary Status: Chronic Comments: Chronic. Continue home medications. (5) Resting tremor Priority: Secondary Status: Chronic Comments: Chronic. Continue beta adrian. (6) Chronic hepatitis C Priority: Secondary Status: Chronic Comments: Chronic. Patient does not follow any one for treatment. He is still using recreational drugs. ALT and AST are most likely chronically elevated will need to be reassessed by primary care. He has an appointment in 3 days with primary care. Qualifiers: Hepatic coma status: without hepatic coma Qualified Code(s): B18.2 - Chronic viral hepatitis C (7) Cocaine abuse Priority: Secondary Status: Chronic Comments: Patient admits to cocaine use. States that his roommate uses drugs and he is unable to control himself and refrain. (8) Schizoaffective disorder, bipolar type Priority: Secondary Status: Chronic Comments: Chronic. Continue home medications. (9) DVT prophylaxis Priority: Secondary Status: Acute Comments: Patient was using calf pumps, he is also ambulatory. His pharmacologic prophylaxis was stopped due to anemia. (10) Anemia Priority: Secondary Status: Chronic Comments: Patient has chronic anemia. He reports blood in his stool for months. His hemoglobin has remained steady throughout his visit. He denies any bright red bleeding or dark tarry stool since arrival here. He will follow up with primary care physician/provider on Friday and can be reevaluated at that time. Qualifiers: Anemia type: unspecified type Qualified Code(s): D64.9 - Anemia, unspecified - Discharge Medications Prescriptions: levoFLOXacin [Levaquin] 750 mg PO DAILY #5 tab Nicotine Patch [Nicoderm] 14 mg TD DAILY #28 patch predniSONE [PredniSONE] See Taper PO DAILY #30 tablet Home Medications: Aspirin [Lo-Dose Aspirin EC] 81 mg PO DAILY 07/06/16 [History] Baclofen [Lioresal] 10 mg PO TID 07/06/16 [History] Dicyclomine [Bentyl] 20 mg PO QID PRN 07/06/16 [History] Docusate [Colace] 200 mg PO BID PRN 07/06/16 [History] Lactobacillus Acidophilus [Acidophilus] 1 cap PO DAILY 07/06/16 [History] Melatonin [Melatin] 9 mg PO HS 07/06/16 [History] Ranitidine HCl [Acid Transformer Repairer] 150 mg PO BID 07/06/16 [History] hydrOXYzine HCl [Hydroxyzine HCl] 100 mg PO TID 07/06/16 [History] Loratadine [Allergy Relief] 10 mg PO DAILY 09/22/16 [History] Propranolol [Inderal] 10 mg PO BID 11/22/16 [History] ARIPiprazole [Abilify] 10 mg PO DAILY 01/21/17 [History] Acetaminophen [Tylenol] 650 mg PO Q6HR PRN 01/21/17 [History] Albuterol Neb [Proventil Neb] 2.5 mg IH QID PRN 01/21/17 [History] Albuterol Sulfate [Albuterol Inhaler] 2 puff IH Q4H PRN 01/21/17 [History] Budesonide/Formoterol 160/4.5 [Symbicort 160/4.5] 2 puff IH BIDR 01/21/17 [ History] Etodolac [Lodine] 400 mg PO BIDWM 01/21/17 [History] Naloxone HCl [Narcan] 4 mg NS AD PRN 01/21/17 [History] Naltrexone HCl [Revia] 50 mg PO HS 01/21/17 [History] Oxybutynin [Ditropan] 5 mg PO TID 01/21/17 [History] Sildenafil Citrate [Viagra] 50 mg PO AD PRN 01/21/17 [History] Tiotropium [Spiriva] 18 mcg IH 0700 01/21/17 [History] Nicotine Patch [Nicoderm] 14 mg TD DAILY #28 patch 02/07/17 [Rx] levoFLOXacin [Levaquin] 750 mg PO DAILY #5 tab 02/07/17 [Rx] predniSONE [PredniSONE] See Taper PO DAILY #30 tablet 02/07/17 [Rx] Allergies/Adverse Reactions: Allergies haloperidol [From Haldol] Adverse Reaction (Verified 01/21/17 03:41) Muscle Pain Oso Adverse Reaction (Verified 01/21/17 03:41) Weakness Date of admission: 02/05/17 02:07 [facility] Consults: 02/05/17 11:19 Consult to Employment Consultant [CONS] Routine Reason for Consult: Medication compliance Discharging clinician: Tegan Moore Anticipated date of discharge: 02/07/17 - Patient Status Disposition: Home, Self-Care Condition: Good Functional capacity at discharge: independent ambulation Overall status at discharge: patient is back to baseline - Discharge Instructions Follow Up With: [facility] [Primary Care Provider] - Additional Instructions: Take your new medications as prescribed. It is important that you finish your antibiotic, take it every single day at the same time until it is gone. Steroids must be taken to completion do not stop taking them abruptly. Resume your normal home medications. Avoid recreational drugs. Usual nicotine patches to stop smoking. Do not smoke with a patch on. Only wear one patch per day. Do your breathing treatments as needed. It is important that you make it to your appointment with your primary care physician on Friday, February 10. Return to the emergency department immediately if your condition changes or becomes worse, or if you have any other symptoms or concerns. - Diet and Activity Activity: resume usual activities as tolerated Diet: advance to your usual diet Hospital course: Mr. Sosa is a 61 year old male with prior medical history of hypoxia, COPD, resting tremor, cocaine abuse, chronic hepatitis C. Patient presented to the emergency room with increased shortness of breath and increased oxygen demand as well as increase use of inhalers and nebulizer treatments. He also reports shortness of breath and wheezing. Onset 3-4 days prior to arrival. Patient reports a productive cough with clear sputum. He denies chest pain chest pressure. He does smoke 1/2-1 pack of cigarettes a day. He is not interested in smoking cessation at this time, however I did prescribe him another box of nicotine patches that was a continuation of the home medication. He was treated with antibiotics, IV steroids, supplemental oxygen at 3 L, and breathing treatments. He has improved and states he is ready to go home. His oxygen use is down to 2-1/2 L day which is what he normally wears at home. I will continue a steroid taper and his antibiotics on discharge. Patient admits to using cocaine frequently and is positive for cocaine on his drug screen. He says that his roommate uses cocaine and he cannot help himself. He has chronic hepatitis C that he does not follow for due to continued drug use. He does have an appointment with his primary care provider [facility] on February 10. His AST and ALT are elevated, chronically. He will continue his normal home medications for resting tremor bipolar disease and hypertension at home. He is also chronically anemic and reports that he has had rectal bleeding for months. He says that there is blood in his stool and also when he wipes. He denies abdominal pain, cramping, diarrhea, or abbe melena or bright red bleeding from his rectum. Stool occult blood was positive, I did not appreciate any palpable hemorrhoids. His hemoglobin has remained steady and at his baseline. Hemoglobin actually increased from yesterday. He can follow up outpatient for further workup and for colonoscopy or scope if needed. Patient's vital signs and labs have been stable. Patient will be sent home by ambulance due to need for oxygen and he does not have a way to get home, nor does he have a portable tank. Patient is stable and ready for discharge. Time spent discussing smoking cessation with patient: 3 to 10 minutes - Time Spent with Patient Total time spent providing and/or coordinating discharge services: Less than 30 minutes - Constitutional Vitals: Temp Pulse Resp BP Pulse Ox 97.8 F 90 22 113/74 97 02/07/17 11:02 02/07/17 11:02 02/07/17 11:02 02/07/17 11:02 02/07/17 11:02 General appearance: Present: cooperative, mild distress, A&O X 3, pleasant, no acute distress, answers questions appropriately - Head Head exam: Present: normal inspection - ENT ENT exam: Present: mucous membranes moist, normal exam, normal external ear exam - Neck Neck exam general surgery: Present: normal inspection. Absent: lymphadenopathy - Respiratory Respiratory exam: Present: decreased breath sounds, wheezes. Absent: chest wall tenderness, prolonged expiratory phase, rales, respiratory distress, rhonchi, stridor - Cardiovascular Cardiovascular exam: Present: RRR, +S1, +S2. Absent: diastolic murmur, systolic murmur - GI/Abdominal GI/Abdominal exam: Present: normal bowel sounds, soft. Absent: hepatomegaly, tenderness - Extremities Exam Extremities exam: Present: normal inspection, warm, radial pulses palpable and symetrical. Absent: pedal edema, tenderness - Neurological Exam Neurological exam: Present: alert, oriented X3, no focal deficits, strengths equal and symetr throughout. Absent: facial droop, speech deficit
== END 2017-02-07 16:23 | disposition home or self-care (01) | DRG 189 ==
LOC: 3BNU 21:24 → EMEROO 21:24 → 3BNU 22:47
PROVIDERS: ADMIT Registered Nurse; ATTEND Registered Nurse

== ENCOUNTER 2017-02-21 23:14 | Inpatient (IN) ==
[2017-02-21] MEDS ORDERED: Ipratropium/Albuterol Neb 3 ML IH ONE (23:18)
[2017-02-21] MEDS ORDERED: methylPREDNISolone 125 MG/2 ML VIAL IVP ONE (23:18)
--- NOTE | 2017-02-21 23:19 | Emergency Department Note ---
Disposition Clinical Impression: COPD exacerbation, Abscess Chest pain Qualifiers: Chest pain type: unspecified Qualified Code(s): R07.9 - Chest pain, unspecified Disposition: Admitted As Inpatient Condition: Fair General Adult HPI - General Chief complaint: ED Shortness of Breath/Dyspnea Stated complaint: GER Time Seen by Provider: 02/21/17 23:17 Source: patient Mode of arrival: ambulatory Limitations: no limitations Nursing Notes Reviewed: Yes Vital Signs Reviewed: Yes - History of Present Illness HPI Narrative: Patient here for evaluation shortness of breath is worsened over the last 2 days. Patient has a history of COPD and uses medications at home as prescribed. Worsening dyspnea on exertion. Nonproductive cough. No fever. Patient describes left chest pain that is described as sharp in nature. Patient has abscesses that are consistent with possible IV drug use. Patient states that they are from cocaine as he injects due to the increased euphoria. - Related Data Home Medications Medication Instructions Recorded Confirmed Aspirin [Lo-Dose Aspirin EC] 81 mg PO DAILY 07/06/16 02/22/17 Baclofen [Lioresal] 10 mg PO TID 07/06/16 02/22/17 Dicyclomine [Bentyl] 20 mg PO QID PRN 07/06/16 02/22/17 Docusate [Colace] 200 mg PO BID PRN 07/06/16 02/22/17 Lactobacillus Acidophilus 1 cap PO DAILY 07/06/16 02/22/17 [Acidophilus] Melatonin [Melatin] 9 mg PO HS 07/06/16 02/22/17 Ranitidine HCl [Acid Business Team Leader] 150 mg PO BID 07/06/16 02/22/17 hydrOXYzine HCl [Hydroxyzine HCl] 100 mg PO TID 07/06/16 02/22/17 Loratadine [Allergy Relief] 10 mg PO DAILY 09/22/16 02/22/17 Propranolol [Inderal] 10 mg PO BID 11/22/16 02/22/17 ARIPiprazole [Abilify] 10 mg PO DAILY 01/21/17 02/22/17 Acetaminophen [Tylenol] 650 mg PO Q6HR PRN 01/21/17 02/22/17 Albuterol Neb [Proventil Neb] 2.5 mg IH QID PRN 01/21/17 02/22/17 Albuterol Sulfate [Albuterol 2 puff IH Q4H PRN 01/21/17 02/22/17 Inhaler] Budesonide/Formoterol 160/4.5 2 puff IH BIDR 01/21/17 02/22/17 [Symbicort 160/4.5] Etodolac [Lodine] 400 mg PO BIDWM 01/21/17 02/22/17 Naloxone HCl [Narcan] 4 mg NS AD PRN 01/21/17 02/22/17 Naltrexone HCl [Revia] 50 mg PO HS 01/21/17 02/22/17 Oxybutynin [Ditropan] 5 mg PO TID 01/21/17 02/22/17 Sildenafil Citrate [Viagra] 50 mg PO AD PRN 01/21/17 02/22/17 Tiotropium [Spiriva] 18 mcg IH 0700 01/21/17 02/22/17 Previous Rx's Medication Instructions Recorded Nicotine Patch [Nicoderm] 14 mg TD DAILY #28 patch 02/07/17 predniSONE [PredniSONE] See Taper PO DAILY #30 tablet 02/07/17 Allergies Allergy/AdvReac Type Severity Reaction Status Date / Time haloperidol [From Haldol] AdvReac Muscle Pain Verified 01/21/17 03:41 [place] AdvReac Weakness Verified 01/21/17 03:41 Review of Systems: CONSTITUTIONAL: No weight loss, fever, chills, weakness or fatigue. HEENT: Eyes: No visual changes. Ears, Nose, Throat: No hearing loss, difficulty talking or unable to swallow. SKIN: No rash or itching. CARDIOVASCULAR: No chest pain, chest pressure or chest discomfort. No palpitations or edema. RESPIRATORY: Shortness of breath GASTROINTESTINAL: No anorexia, nausea, vomiting or diarrhea. No abdominal pain or blood. GENITOURINARY: No burning on urination or hematuria. NEUROLOGICAL: No headache, dizziness, syncope, paralysis, ataxia, numbness or tingling in the extremities. No change in bowel or bladder control. MUSCULOSKELETAL: No muscle pain, back pain, joint pain or stiffness. Past Medical History - Past Medical History Medical history: Reports: COPD, hepatitis, other Surgical history: Reports: cholecystectomy Psychiatric history: Reports: anxiety, bipolar, depression, schizophrenia - Social History Smoking Status: Current some day smoker Smokeless Tobacco Status: No Alcohol use: Reports: none Drug use: Reports: cocaine, IV Drug Use, other Physical Exam General appearance: NAD, conversant Eyes: anicteric sclerae, moist conjunctivae; PERRL HENT: Atraumatic; oropharynx clear with moist mucous membranes and no mucosal ulcerations Neck: Normal inspection; Trachea midline; FROM, supple Lungs: Significant wheezing throughout CV: RRR, no MRGs Abdomen: Soft, non-tender; no rebound or gaurding Extremities: Multiple abscesses Skin: Multiple abscesses to the left extremity Psych: Appropriate mood and affect Neuro: alert and oriented to person, place and time Course - Reevaluation(s) Reevaluation #1: Patient breathing improved with breathing treatments however he does continue to have chest pain. Patient will be admitted for further evaluation and management - Consultations Consultation #1: Discussed Dr. Chan. Patient accepted for admission. Vital Signs Temperature 98.5 F 02/21/17 23:16 Pulse Rate 115 02/21/17 23:16 Respiratory Rate 20 02/21/17 23:16 Blood Pressure 133/120 02/21/17 23:16 O2 Sat by Pulse Oximetry 95 02/21/17 23:16 Temperature 97.7 F 02/22/17 02:25 Pulse Rate 121 02/22/17 02:25 Respiratory Rate 23 02/22/17 02:25 Blood Pressure 123/72 02/22/17 02:25 O2 Sat by Pulse Oximetry 96 02/22/17 02:25 Oxygen Delivery Oxygen Delivery Nasal Cannula Medical Decision Making - Lab Data Result diagrams: 02/21/17 23:31 02/21/17 23:31 Lab Results 02/21/17 02/21/17 02/21/17 Range/Units 23:31 23:31 23:31 WBC 6.8 (4.3-11.1) K/mcL RBC 3.88 L (4.19-5.50) M/mcL Hgb 11.9 L (12.9-16.9) g/dL Hct 36.0 L (37.5-50.1) % MCV 92.8 (83.0-100.0) fL MCH 30.7 (28.0-33.3) pg MCHC 33.1 (31.6-35.5) g/dL RDW 13.2 (11.5-14.5) % Plt Count 151 (140-400) K/mcL MPV 9.6 (9.4-12.4) fL Immature Gran % 0.3 (0-4) % Seg Neutrophils % 63.0 % Lymphocytes % 24.8 % Monocytes % 9.1 % Eosinophils % 2.5 % Basophils % 0.3 % Neutrophils # 4.3 (1.6-8.9) K/mcL Lymphocytes # 1.7 (0.6-4.6) K/mcL Monocytes # 0.6 (0.0-1.3) K/mcL Eosinophils # 0.2 (0.0-0.6) K/mcL Basophils # 0.0 (0.0-0.2) K/mcL Sodium 141 (136-145) mEq/L Potassium 3.8 (3.5-4.5) mEq/L Chloride 95 L (98-109) mEq/L Carbon Dioxide 38 H (19-29) mEq/L BUN 23 (8-26) mg/dL Creatinine 0.70 L (0.72-1.25) mg/dL Est GFR ( Amer) > 60 (> 60) Est GFR (Non-Af Amer) > 60 (> 60) BUN/Creatinine Ratio 33 H (6-26) Glucose 107 H (70-99) mg/dL Calculated Osmolality 296 (280-300) Calcium 9.3 (8.6-10.8) mg/dL Troponin I 0.00 (0-0.03) ng/mL B-Natriuretic Peptide (0-100) pg/mL 02/21/17 Range/Units 23:31 WBC (4.3-11.1) K/mcL RBC (4.19-5.50) M/mcL Hgb (12.9-16.9) g/dL Hct (37.5-50.1) % MCV (83.0-100.0) fL MCH (28.0-33.3) pg MCHC (31.6-35.5) g/dL RDW (11.5-14.5) % Plt Count (140-400) K/mcL MPV (9.4-12.4) fL Immature Gran % (0-4) % Seg Neutrophils % % Lymphocytes % % Monocytes % % Eosinophils % % Basophils % % Neutrophils # (1.6-8.9) K/mcL Lymphocytes # (0.6-4.6) K/mcL Monocytes # (0.0-1.3) K/mcL Eosinophils # (0.0-0.6) K/mcL Basophils # (0.0-0.2) K/mcL Sodium (136-145) mEq/L Potassium (3.5-4.5) mEq/L Chloride (98-109) mEq/L Carbon Dioxide (19-29) mEq/L BUN (8-26) mg/dL Creatinine (0.72-1.25) mg/dL Est GFR ( Amer) (> 60) Est GFR (Non-Af Amer) (> 60) BUN/Creatinine Ratio (6-26) Glucose (70-99) mg/dL Calculated Osmolality (280-300) Calcium (8.6-10.8) mg/dL Troponin I (0-0.03) ng/mL B-Natriuretic Peptide 23 (0-100) pg/mL Attestation Statement - Attestation Attestation: I, Abhishek Kendrick MD, personally evaluated this patient and discussed their management with the resident physician. I reviewed the resident's note and agree with the documented findings, medical decision making, and plan of care. 61-year-old male with history of COPD and is on oxygen continuously at home presents to the emergency department with a complaint of increased shortness of breath for the past 2 days. Patient states he is fine at rest but if he gets up and moves around any and all he gets very short of breath despite his oxygen. He also complains of some chest pains for the past 2 days. There has been some increased cough but no sputum production. No fever. On examination patient is a well-developed well-nourished well-appearing male in no acute distress. He is alert and oriented 3. There is no cyanosis or diaphoresis. Chest is nontender to palpation. Breath sounds are decreased bilaterally with bilateral expiratory wheezes. Heart regular with a moderate tachycardia. Abdomen is soft and nontender with normal bowel sounds. Patient has 2 areas of cellulitis with possible abscess to the left arm secondary to IV drug abuse. Patient admits to injecting cocaine on a regular basis. Chest x-ray negative. EKG shows a sinus tachycardia with a heart rate of 111 but otherwise no acute changes. Labs reviewed. The hospitalist, Dr. Chan, was consulted and accepted admission of the patient.
[2017-02-21 23:37] LABS: Basophils % 0.3 %; Eosinophils # 0.2 K/mcL (0.0-0.6); Eosinophils % 2.5 %; Hemoglobin 11.9 g/dL (12.9-16.9); Immature Granulocytes % 0.3 % (0-4); Lymphocytes # 1.7 K/mcL (0.6-4.6); Lymphocytes % 24.8 %; Mean Corpuscular HGB Conc 33.1 g/dL (31.6-35.5); Mean Corpuscular Hemoglobin 30.7 pg (28.0-33.3); Mean Corpuscular Volume 92.8 fL (83.0-100.0); Mean Platelet Volume 9.6 fL (9.4-12.4); Monocytes # 0.6 K/mcL (0.0-1.3); Monocytes % 9.1 %; Neutrophils # 4.3 K/mcL (1.6-8.9); Platelet Count 151 K/mcL (140-400); Red Blood Count 3.88 M/mcL (4.19-5.50); Red Cell Distribution Width 13.2 % (11.5-14.5)
[2017-02-21 23:50] LABS: BUN/Creatinine Ratio 33 (6-26); Blood Urea Nitrogen 23 mg/dL (8-26); Calcium 9.3 mg/dL (8.6-10.8); Carbon Dioxide 38 mEq/L (19-29); Chloride 95 mEq/L (98-109); Glucose 107 mg/dL (70-99); Osmolality,Calculated 296 (280-300); Potassium 3.8 mEq/L (3.5-4.5); Sodium 141 mEq/L (136-145); eGFR For African Americans > 60 (> 60); eGFR For Non-African Americans > 60 (> 60)
--- NOTE | 2017-02-22 02:43 | Internal Med History&Physical ---
Date of Encounter: 02/22/17 Time of Encounter: 02:43 Assessment and Plan (1) Acute exacerbation of chronic obstructive airways disease Current visit: Yes Status: Acute patient with hx of COPD on home oxygen comes in with signs and symptoms concerning for an acute decompensation, we will admit him for IV steroids, scheduled and PRN duonebs as well as supportive oxygen and azithromycin, will continue to insurance counsel on smoking cessation (2) Bipolar disease, chronic Current visit: Yes Status: Chronic will continue his home medications (3) IV drug abuse Current visit: Yes Status: Chronic he admits to using IV cocaine but denies any other drugs, we have counseled him on cessation Internal Medicine - H&P: HPI Chief complaint: Shortness of breath Admitted From: Emergency Dept Plans for Post Hospital Care: Home History of present illness: Mr. Sosa is a 61 year old male with a hx of chronic respiratory failure secondary to COPD on home oxygen who was brought in to the ER of [facility] for worsening shortness of breath. He reports being in his usual state of health until about 2 days prior to presentation when he began to experience dyspnea that was increasingly worsening. This was associated with non productive cough, wheezing, dyspnea on exertion. He denies any production of sputum but admits to feeling congested. He has been using his inhalers and nebulizers several times daily for symptom relief since the onset of his symptoms but unfortunately the symptoms progressively worsened so he showed up in the ER for further management. He also noticed that his oxygen requirement increased and he was unable to move around without it. No fever, chills, nausea or vomiting, no sick contacts. He uses IV cocaine but denies sniffing it or sniffing heroin. He still actively smokes cigarettes. Past Med Surg Social Fam HX - Past Medical History Source: patient, old records reviewed Medical history: COPD, hepatitis, other Psychiatric history: anxiety, bipolar, depression, schizophrenia - Past Surgical History Surgical History: cholecystectomy - Social History Smoking Status: Current some day smoker Smokeless Tobacco Status: No Alcohol use: none Drug use: cocaine, IV Drug Use, other Current living situation: Home - Independent Activity Level: Independent ambulation - Family History Mother Adopted: No Family Member Ethnicity: Non- Living Status: Hx Family Cardiac Disorders: Yes Hx Family Respiratory Disorders: Yes (dad emphezema) Hx Family Cancer: Yes (lung CA) Hx Family GI Disorders: No Hx Family Endocrine Disorder: Yes (DM) Hx Family Neuromuscular Disorders: No Hx Family Neurologic Disorders: No Hx Family HEENT Disorders: No Hx Family Autoimmune Disorders: No Father Family Member Ethnicity: Non- Living Status: Hx Family Cancer: Yes (Lung cancer) Brother Family Member Ethnicity: Non- Living Status: Still Living Hx Family Respiratory Disorders: Yes (Emphysema) Sister Family Member Ethnicity: Non- Living Status: Still Living Internal Medicine - H&P: Meds Aspirin [Lo-Dose Aspirin EC] 81 mg PO DAILY 07/06/16 [History] Baclofen [Lioresal] 10 mg PO TID 07/06/16 [History] Dicyclomine [Bentyl] 20 mg PO QID PRN 07/06/16 [History] Docusate [Colace] 200 mg PO BID PRN 07/06/16 [History] Lactobacillus Acidophilus [Acidophilus] 1 cap PO DAILY 07/06/16 [History] Melatonin [Melatin] 9 mg PO HS 07/06/16 [History] Ranitidine HCl [Acid Substation Operator Chief] 150 mg PO BID 07/06/16 [History] hydrOXYzine HCl [Hydroxyzine HCl] 100 mg PO TID 07/06/16 [History] Loratadine [Allergy Relief] 10 mg PO DAILY 09/22/16 [History] Propranolol [Inderal] 10 mg PO BID 11/22/16 [History] ARIPiprazole [Abilify] 10 mg PO DAILY 01/21/17 [History] Acetaminophen [Tylenol] 650 mg PO Q6HR PRN 01/21/17 [History] Albuterol Neb [Proventil Neb] 2.5 mg IH QID PRN 01/21/17 [History] Albuterol Sulfate [Albuterol Inhaler] 2 puff IH Q4H PRN 01/21/17 [History] Budesonide/Formoterol 160/4.5 [Symbicort 160/4.5] 2 puff IH BIDR 01/21/17 [ History] Etodolac [Lodine] 400 mg PO BIDWM 01/21/17 [History] Naloxone HCl [Narcan] 4 mg NS AD PRN 01/21/17 [History] Naltrexone HCl [Revia] 50 mg PO HS 01/21/17 [History] Oxybutynin [Ditropan] 5 mg PO TID 01/21/17 [History] Sildenafil Citrate [Viagra] 50 mg PO AD PRN 01/21/17 [History] Tiotropium [Spiriva] 18 mcg IH 0700 01/21/17 [History] Nicotine Patch [Nicoderm] 14 mg TD DAILY #28 patch 02/07/17 [Rx] predniSONE [PredniSONE] See Taper PO DAILY #30 tablet 02/07/17 [Rx] Allergies haloperidol [From Haldol] Adverse Reaction (Verified 01/21/17 03:41) Muscle Pain [place] Adverse Reaction (Verified 01/21/17 03:41) Weakness All Systems PM: A 10-system review of systems was performed and is negative for pertinent findings except as documented above in the HPI. - Constitutional Vitals: Temp Pulse Resp BP Pulse Ox 97.7 F 121 23 123/72 96 02/22/17 02:25 02/22/17 02:25 02/22/17 02:25 02/22/17 02:25 02/22/17 02:25 GENERAL: Adult male lying in bed, bearded, Alert, in mild respiratory distress with visible tremors, HEENT: NC/AT, EOMI, PERRLA, anicteric sclera, normal conjunctiva, supple, clear nares, moist mucous membranes, RESP: [place] wheezing with prolonged expiratory phase, no crackles heard, reduced AE CARDIO: Tachycardic heart sounds with no murmurs, no JVD, no ankle edema GI: Soft, full, no tenderness, no organomegaly felt, normal bowel sounds heard MUSCULOSKELETAL: grossly normal movements bilaterally, no deformities noted, NEUROLOGIC: CN 2-12 intact grossly. No gross motor/sensory deficit appreciated, PSYCHIATRY: AAO x 3. SKIN: reddened area on the left antecubital region? track blood Internal Med - H&P Results - Labs CBC & Chem 7: 02/21/17 23:31 02/21/17 23:31 - Diagnostic Studies Chest x-ray Status: image reviewed by me
[2017-02-22] MEDS ORDERED: Naloxone 0.4 MG/ML INJ IVP PRN (02:56)
[2017-02-22] MEDS ORDERED: Acetaminophen 325 MG TABLET PO PRN (02:57)
[2017-02-22] MEDS ORDERED: Albuterol 2.5 MG/3 ML NEBULIZER IH PRN (02:59)
[2017-02-22] MEDS: Melatonin 3 MG TABLET PO SCH ×2 (03:22→20:37)
[2017-02-22] MEDS: Albuterol 2.5 MG/3 ML NEBULIZER IH SCH ×6 (04:11→23:11)
[2017-02-22] MEDS: Ipratropium Neb 0.5 MG NEBULIZER IH SCH ×6 (04:11→23:11)
[2017-02-22] MEDS: Nicotine 14 MG PATCH.TD24 TD SCH (08:50)
[2017-02-22] MEDS: MethylPREDNISolone 40 MG/ML VIAL IVP SCH ×3 (08:50→23:34)
[2017-02-22] MEDS: Loratadine 10 MG TABLET PO SCH (08:51)
[2017-02-22] MEDS: Baclofen 10 MG TABLET PO SCH ×3 (08:51→20:37)
[2017-02-22] MEDS: Azithromycin 250 MG TABLET PO SCH (08:51)
[2017-02-22] MEDS: Aspirin Enteric Coated 81 MG Tablet PO SCH (08:51)
[2017-02-22] MEDS: ARIPiprazole 10 MG TABLET PO SCH (08:51)
[2017-02-22] MEDS: hydrOXYzine pamoate 25 MG CAPSULE PO SCH ×3 (08:51→20:37)
[2017-02-22] MEDS: Lactobacillus 1 EACH CAP.SPRINK PO SCH (08:51)
[2017-02-22] MEDS: Famotidine 20 MG TABLET PO SCH ×2 (08:52→20:37)
[2017-02-22] MEDS ORDERED: *HR* LORazepam 2 MG/ML VIAL IVP ONE (10:52)
--- NOTE | 2017-02-22 11:47 | Event Note ---
Date of Encounter: 02/22/17 Time of Encounter: 10:50 Patient was seen and assessed at 10:50 AM. When I entered the room, the patient was then obvious respiratory distress, grunting, tachypneic, audible wheezing. Respiratory was called and patient was given a breathing treatment which seemed to help. He got a small dose of IV Ativan, as well. He has a long history of COPD and wears home oxygen. We will continue IV steroids, scheduled and when necessary DuoNeb's, oxygen as needed to maintain sats greater than 92%, and Zithromax 500 mg by mouth daily. We will discuss smoking cessation again closer to time of discharge. Pt has a hardened, red area to left AC where he injects cocaine. Onset about 5- 6 days ago. Doppler ordered and pending. Pt has no white count or fever. I assessed pt about an hour after the breathing treatment and Ativan and he was significantly better, was able to walk to bathroom, but was dyspneic on exertion. He denies sore throat, rhinorrhea, or ear pain, reports dry, hacking cough. He denies chest pain or diaphoresis. No n/v/d or abd pain, no headache, no urinary symptoms,and denies pain. Physical exam was unremarkable other than wheezing and left AC. Pt has no anterior or posterior cervical lymphadenopathy, S1S2, RRR, no gallops, clicks, murmurs. Lungs are diminished with wheezing heard in all lung temple. Abd is soft and non-tender, bs present. No peripheral edema, palpable peripheral pulses +2 in nadia upper and lower extremities. Continue current treatment and monitor labs and vital signs.
[2017-02-22] MEDS: *HR* Heparin 5,000 UNIT/ML VIAL SQ SCH (16:25)
[2017-02-23] MEDS: Albuterol 2.5 MG/3 ML NEBULIZER IH SCH ×6 (03:47→23:02)
[2017-02-23] MEDS: Ipratropium Neb 0.5 MG NEBULIZER IH SCH ×6 (03:47→23:02)
[2017-02-23] MEDS ORDERED: *HR* LORazepam 0.5 MG TABLET PO ONE (04:19)
[2017-02-23] MEDS: *HR* Heparin 5,000 UNIT/ML VIAL SQ SCH ×2 (05:36→16:48)
[2017-02-23] MEDS: hydrOXYzine pamoate 25 MG CAPSULE PO SCH ×3 (08:59→22:34)
[2017-02-23] MEDS: MethylPREDNISolone 40 MG/ML VIAL IVP SCH ×3 (08:59→22:34)
[2017-02-23] MEDS: ARIPiprazole 10 MG TABLET PO SCH (08:59)
[2017-02-23] MEDS: Baclofen 10 MG TABLET PO SCH ×3 (09:00→22:35)
[2017-02-23] MEDS: Lactobacillus 1 EACH CAP.SPRINK PO SCH (09:00)
[2017-02-23] MEDS: Azithromycin 250 MG TABLET PO SCH (09:00)
[2017-02-23] MEDS: Famotidine 20 MG TABLET PO SCH ×2 (09:00→22:35)
[2017-02-23] MEDS: Aspirin Enteric Coated 81 MG Tablet PO SCH (09:00)
[2017-02-23] MEDS: Nicotine 14 MG PATCH.TD24 TD SCH (09:01)
[2017-02-23] MEDS: Loratadine 10 MG TABLET PO SCH (09:01)
--- NOTE | 2017-02-23 09:37 | Internal Med Progress Note ---
Date of Encounter: 02/23/17 Time of Encounter: 08:30 - Assessment and plan (1) Acute exacerbation of chronic obstructive airways disease Current Visit: Yes Status: Acute Assessment and plan: Wheezing heard throughout, pt requriring 02 to maintain sats >92%. Pt currently 96% on 3L. Continue scheduled and prn nebulizer treatments Continue IV steroids Maintain 02, titrate as needed to maintain sats >92% Continue Zithromax (2) Tobacco abuse Current Visit: No Status: Chronic Assessment and plan: Chronic. Will discuss smoking cessation prior to discharge. (3) Acute respiratory failure with hypoxia Current Visit: No Status: Acute Assessment and plan: Plan as above. (4) Bipolar disease, chronic Current Visit: Yes Status: Chronic Assessment and plan: Chronic. Pt is on Abilify. (5) IV drug abuse Current Visit: Yes Status: Chronic Assessment and plan: Pt admits to IV drug use. States that he traditionally injects into left AC. He said that about a month ago he had a "real bad abscess" that he "stuck a needle in and drained it myself." He feels that it is a possiblity, when asked, that he may have broken off a needle in his arm. (6) DVT prophylaxis Current Visit: No Status: Acute Assessment and plan: Heparin SQ (7) Superficial venous thrombosis of left arm Current Visit: Yes Status: Acute Assessment and plan: Pt has hardened, red area to L AC. Pt states that it comes and goes for the last 2 weeks. Doppler revealed superficial thrombus to left basilic vein at mid arm. Pt admits to injecting IV drugs into that area. CT shows multiple foci of gas in the AC with adjacent inflammatory stranding. No drainable abscess, punctate radiodense foreign body in distal forearm. Surgical consult in. Upper Extremity CT 02/23/17 09:28 IMPRESSION: 1. Multiple foci of gas in the antecubital fossa with adjacent inflammatory stranding. No drainable abscess. 2. Unable to evaluate for venous thrombosis without IV contrast. 3. Punctate radiodense foreign body along the radial aspect of the distal forearm of unclear etiology. 4. Emphysema. D/ / 02/23/2017 10:45:26 Celine Kelly MD / herbert Interpreting Provider: Celine Kelly MD - Time Spent With Patient less than 15 minutes - Subjective Interval history: Pt was seen and assessed at 0830. He was sleeping and aroused easily. He states that he is feeling some better, but wheezing persists in all lung temple. He denies chest pain, n/v/d, or headache. - Constitutional Vitals: Temp Pulse Resp BP Pulse Ox 98.1 F 90 20 158/74 98 02/23/17 07:26 02/23/17 07:26 02/23/17 07:33 02/23/17 07:26 02/23/17 07:55 General appearance: Present: cooperative, disheveled, mild distress, A&O X 3, pleasant, answers questions appropriately - Head Head exam: Present: normal inspection - Eye Eye exam: Present: normal appearance, conjuntiva pink - ENT ENT exam: Present: mucous membranes moist, normal exam, normal external ear exam - Respiratory Respiratory exam: Present: decreased breath sounds, wheezes. Absent: chest wall tenderness, CTAB, rales, respiratory distress, rhonchi, stridor - Cardiovascular Cardiovascular exam: Present: RRR, +S1, +S2. Absent: diastolic murmur, systolic murmur - GI/Abdominal GI/Abdominal exam: Present: normal bowel sounds, soft. Absent: distended, hepatomegaly, tenderness - Extremities Exam Extremities exam: Present: normal inspection, warm, radial pulses palpable and symetrical. Absent: joint swelling, pedal edema, tenderness - Neurological Exam Neurological exam: Present: alert, oriented X3, no focal deficits. Absent: facial droop, speech deficit - Skin Skin exam: Present: dry, normal color, warm. Absent: diaphoretic, rash Internal Medicine: Result - Labs CBC & Chem 7: 02/23/17 10:33 02/23/17 10:33 Consult Discharge Plan - Plan [facility]errals: [facility]Primary Care Provider[facility] -
[2017-02-23 10:45] LABS: Hematocrit 28.7 % (37.5-50.1); Immature Granulocytes % 0.4 % (0-4); Immature Platelets 3.2 % (1.1-6.1); Lymphocytes # 0.5 K/mcL (0.6-4.6); Lymphocytes % 6.1 %; Mean Corpuscular HGB Conc 33.8 g/dL (31.6-35.5); Mean Corpuscular Hemoglobin 30.5 pg (28.0-33.3); Mean Corpuscular Volume 90.3 fL (83.0-100.0); Mean Platelet Volume 9.7 fL (9.4-12.4); Monocytes # 0.3 K/mcL (0.0-1.3); Monocytes % 3.2 %; Neutrophils # 7.1 K/mcL (1.6-8.9); Platelet Count 144 K/mcL (140-400); Red Blood Count 3.18 M/mcL (4.19-5.50); Segmented Neutrophils % 90.3 %
[2017-02-23 10:47] LABS: Hemoglobin 9.7 g/dL (12.9-16.9)
[2017-02-23 10:57] LABS: BUN/Creatinine Ratio 25 (6-26); Blood Urea Nitrogen 18 mg/dL (8-26); Calcium 8.9 mg/dL (8.6-10.8); Carbon Dioxide 37 mEq/L (19-29); Chloride 94 mEq/L (98-109); Glucose 221 mg/dL (70-99); Osmolality,Calculated 289 (280-300); Potassium 4.2 mEq/L (3.5-4.5); Sodium 135 mEq/L (136-145); eGFR For African Americans > 60 (> 60); eGFR For Non-African Americans > 60 (> 60)
[2017-02-23] MEDS ORDERED: *HR* LORazepam 2 MG/ML VIAL IVP ONE (14:13)
[2017-02-23] MEDS: 0.9 % Sodium Chloride 1,000 ML IVC SCH (15:02)
--- NOTE | 2017-02-23 17:54 | General Surgery Consult Note ---
Date of Encounter: 02/23/17 Time of Encounter: 16:20 History of Present Illness Consult date: 02/23/17 Requesting physician: Tegan Moore History of present illness: 61-year-old male referred to surgical services with complaints of left arm pain , swelling, and radiologic evidence of subcutaneous air antecubital fossa. The patient is extremely poor historian. He describes waxing and waning swelling/mass left arm over the past month. The patient has been admitted, 2016, for exacerbation of his COPD, however the arm complaints, prompted a CT, completed 02/23/2017, of the extremity with the following findings: possible Venous thrombosis left basilic vein, possible abscess due to known IV drug use; no osseous abnormalities; multiple foci subcutaneous gas/air in the left antecubital fossa with adjacent inflammatory stranding. A drainable fluid collection was not described. The patient admits to injecting cocaine into the left antecubital region. The patient 's history of waxing and waning swelling of the arm suggests chronicity of the recently identified abnormality antecubital fossa and possible persistent /chronic venous occlusion/thrombosis of the basilic vein. Past medical history: Chronic respiratory failure/COPD/hypoxia; hepatitis, chronic anxiety, bipolar disorder, depression, schizophrenia, IV drug abuse. Surgical history: Cholecystectomy Allergies: Haldol and lithium Medications: aspirin 81 mg by mouth daily Baclofen 10 mg by mouth 3 times a day Dicyclomine 20 mg by mouth 4 times a day as needed Lactobacillus 1 cap by mouth daily Docusate 200 mg by mouth twice a day as needed for constipation Melatonin 9 mg by mouth daily at bedtime Ranitidine 150 mg by mouth twice a day Hydroxyzine 100 mg by mouth 3 times a day Loratadine 10 mg by mouth daily Propranolol 10 mg by mouth twice a day Aripiprazole 10 10 mg by mouth daily Acetaminophen 650 mg by mouth every 6 hours when necessary Albuterol nebulizer 2.5 mg inhaled 4 times a day as needed or shortness of breath or difficulty breathing Albuterol sulfate 2 puffs inhaled every 4 hours as needed for shortness of breath or difficulty breathing Budesonide/formoterol 160/4.5 2 puffs inhaled twice a day Etodolac 4 mg by mouth twice a day with meals Naloxone HCl 4 mg nasally as directed as needed for overdose Naltrexone 50 mg by mouth daily at bedtime Oxybutynin 5 mg by mouth 3 times a day Sildenafil if the milligrams by mouth as directed as needed Tiotropium 18 g inhaled daily Nicotine patch 14 mg applied topically daily Prednisone - taper pack prescribed 02/07/17 Social history: Patient denies any alcohol use but admits to cocaine and other IV drugs; he continues to use tobacco On physical examination: Thin male who appears much older than his stated age. Afebrile, vital signs stable with pulse 93, respirations 20-24, blood pressure 113/69. SPO2 97% on 3 L/m nasal cannula Lungs: Diffuse wheezing with poor air movement bilaterally Cardiac: Regular rate, no appreciable murmurs Abdomen: Soft, nontender Extremities: Left arm notable for nontender swelling most pronounced proximal to the antecubital fossa but there is swelling on both sides of the antecubital fossa. No obvious subcutaneous air or fluctuance. Laboratories: White count 7.8, hemoglobin 9.7, hematocrit 28.7 Sodium 135, potassium 4.2, chloride 94, bicarbonate 37, BUN 18, creatinine 0.72 Chest x-ray: Bilaterally hyperexpanded lungs without obvious infiltrates, effusions, or atelectasis. Cardiomediastinal silhouette within normal limits CT of the upper extremity - described in the history of present illness Impression: Abscess with subcutaneous air left antecubital fossa. Possible venous thrombosis of the basilic vein Incision and drainage of the left antecubital fossa is to be completed today. Cultures will be obtained at the time of the incision and drainage. Risks of surgery include respiratory failure requiring intubation and prolonged mechanical ventilation; persistent infection, failure to heal, injury to surrounding structures. Past Med Surg Social Fam HX - Past Medical History Medical history: COPD, hepatitis, other Psychiatric history: anxiety, bipolar, depression, schizophrenia - Past Surgical History Surgical History: cholecystectomy - Social History Smoking Status: Current some day smoker Packs per day: 0.5 Smokeless Tobacco Status: No Alcohol use: none Drug use: cocaine, IV Drug Use, other - Family History Mother Adopted: No Family Member Ethnicity: Non- Living Status: Hx Family Cardiac Disorders: Yes Hx Family Respiratory Disorders: Yes (dad emphezema) Hx Family Cancer: Yes (lung CA) Hx Family GI Disorders: No Hx Family Endocrine Disorder: Yes (DM) Hx Family Neuromuscular Disorders: No Hx Family Neurologic Disorders: No Hx Family HEENT Disorders: No Hx Family Autoimmune Disorders: No Father Adopted: [place]: LINDA Family Member Ethnicity: Non- Living Status: Age at : 62 Cause of : LUNG CANCER Hx Family Cardiac Disorders: No Hx Family Respiratory Disorders: Yes Hx Family Cancer: Yes (Lung cancer) Hx Family GI Disorders: No Hx Family Genitourinary Disorders: No Hx Family Endocrine Disorder: No Hx Family Musculoskeletal Disorders: No Hx Family Neuromuscular Disorders: No Hx Family Neurologic Disorders: No Hx Family HEENT Disorders: No Hx Family Autoimmune Disorders: No Hx Family Reproductive Disorders: No Hx Family Psychosocial Disorders: No Hx Family Medical Disorders: No Brother Family Member Ethnicity: Non- Living Status: Still Living Hx Family Respiratory Disorders: Yes (Emphysema) Sister Family Member Ethnicity: Non- Living Status: Still Living Medications and Allergies Aspirin [Lo-Dose Aspirin EC] 81 mg PO DAILY 07/06/16 [History] Baclofen [Lioresal] 10 mg PO TID 07/06/16 [History] Dicyclomine [Bentyl] 20 mg PO QID PRN 07/06/16 [History] Docusate [Colace] 200 mg PO BID PRN 07/06/16 [History] Lactobacillus Acidophilus [Acidophilus] 1 cap PO DAILY 07/06/16 [History] Melatonin [Melatin] 9 mg PO HS 07/06/16 [History] Ranitidine HCl [Acid Scout Executive] 150 mg PO BID 07/06/16 [History] hydrOXYzine HCl [Hydroxyzine HCl] 100 mg PO TID 07/06/16 [History] Loratadine [Allergy Relief] 10 mg PO DAILY 09/22/16 [History] Propranolol [Inderal] 10 mg PO BID 11/22/16 [History] ARIPiprazole [Abilify] 10 mg PO DAILY 01/21/17 [History] Acetaminophen [Tylenol] 650 mg PO Q6HR PRN 01/21/17 [History] Albuterol Neb [Proventil Neb] 2.5 mg IH QID PRN 01/21/17 [History] Albuterol Sulfate [Albuterol Inhaler] 2 puff IH Q4H PRN 01/21/17 [History] Budesonide/Formoterol 160/4.5 [Symbicort 160/4.5] 2 puff IH BIDR 01/21/17 [ History] Etodolac [Lodine] 400 mg PO BIDWM 01/21/17 [History] Naloxone HCl [Narcan] 4 mg NS AD PRN 01/21/17 [History] Naltrexone HCl [Revia] 50 mg PO HS 01/21/17 [History] Oxybutynin [Ditropan] 5 mg PO TID 01/21/17 [History] Sildenafil Citrate [Viagra] 50 mg PO AD PRN 01/21/17 [History] Tiotropium [Spiriva] 18 mcg IH DAILY 01/21/17 [History] Nicotine Patch [Nicoderm] 14 mg TD DAILY #28 patch 02/07/17 [Rx] predniSONE [PredniSONE] See Taper PO DAILY #30 tablet 02/07/17 [Rx] Allergies haloperidol [From Haldol] Adverse Reaction (Verified 01/21/17 03:41) Muscle Pain [place] Adverse Reaction (Verified 01/21/17 03:41) Weakness Review of Systems All systems PM: A 10-system review of systems was performed and is negative for pertinent findings except as documented above in the HPI. General Surgery Exam Initial Vital Signs Temp Pulse Resp BP Pulse Ox 98.5 F 115 20 133/120 95 02/21/17 23:16 02/21/17 23:16 02/21/17 23:16 02/21/17 23:16 02/21/17 23:16 Exam Initial Vital Signs Temp Pulse Resp BP Pulse Ox 98.5 F 115 20 133/120 95 02/21/17 23:16 02/21/17 23:16 02/21/17 23:16 02/21/17 23:16 02/21/17 23:16 Results - Labs 02/23/17 10:33 02/23/17 10:33 Abnormal lab results RBC 3.18 M/mcL (4.19-5.50) L 02/23/17 10:33 Hgb 9.7 g/dL (12.9-16.9) L D 02/23/17 10:33 Hct 28.7 % (37.5-50.1) L 02/23/17 10:33 Lymphocytes # 0.5 K/mcL (0.6-4.6) L 02/23/17 10:33 Sodium 135 mEq/L (136-145) L 02/23/17 10:33 Chloride 94 mEq/L (98-109) L 02/23/17 10:33 Carbon Dioxide 37 mEq/L (19-29) H 02/23/17 10:33 Glucose 221 mg/dL (70-99) H 02/23/17 10:33 Diabetes panel 02/23/17 Range/Units 10:33 Sodium 135 L (136-145) mEq/L Potassium 4.2 (3.5-4.5) mEq/L Chloride 94 L (98-109) mEq/L Carbon Dioxide 37 H (19-29) mEq/L BUN 18 (8-26) mg/dL Creatinine 0.72 (0.72-1.25) mg/dL Glucose 221 H (70-99) mg/dL Calcium 8.9 (8.6-10.8) mg/dL Calcium panel 02/23/17 Range/Units 10:33 Calcium 8.9 (8.6-10.8) mg/dL Pituitary panel 02/23/17 Range/Units 10:33 Sodium 135 L (136-145) mEq/L Potassium 4.2 (3.5-4.5) mEq/L Chloride 94 L (98-109) mEq/L Carbon Dioxide 37 H (19-29) mEq/L BUN 18 (8-26) mg/dL Creatinine 0.72 (0.72-1.25) mg/dL Glucose 221 H (70-99) mg/dL Calcium 8.9 (8.6-10.8) mg/dL Adrenal panel 02/23/17 Range/Units 10:33 Sodium 135 L (136-145) mEq/L Potassium 4.2 (3.5-4.5) mEq/L Chloride 94 L (98-109) mEq/L Carbon Dioxide 37 H (19-29) mEq/L BUN 18 (8-26) mg/dL Creatinine 0.72 (0.72-1.25) mg/dL Glucose 221 H (70-99) mg/dL Calcium 8.9 (8.6-10.8) mg/dL All other labs normal. Consult Discharge Plan - Plan [facility]errals: [facility] [Primary Care Provider] -
[2017-02-23] MEDS ORDERED: Famotidine 20 MG/2 ML VIAL ONE (20:47)
--- NOTE | 2017-02-23 20:55 | Anesthesia Evaluation PreOp ---
Date of Encounter: 02/23/17 Time of Encounter: 20:50 - Past History Planned Operation: Incision and Drainage Antecubital Fossa Cardiac History: HTN, Hyperlipidemia Pulmonary History: Smoker, COPD (on home oxygen) ADJUSTER ARBITRATOR History: Denies Any Significant HX Other Medical History: Other (Bipolar) Alcohol Use: none Drug use: cocaine, IV Drug Use, other Medications and Allergies Aspirin [Lo-Dose Aspirin EC] 81 mg PO DAILY 07/06/16 [History] Baclofen [Lioresal] 10 mg PO TID 07/06/16 [History] Dicyclomine [Bentyl] 20 mg PO QID PRN 07/06/16 [History] Docusate [Colace] 200 mg PO BID PRN 07/06/16 [History] Lactobacillus Acidophilus [Acidophilus] 1 cap PO DAILY 07/06/16 [History] Melatonin [Melatin] 9 mg PO HS 07/06/16 [History] Ranitidine HCl [Acid Turbogenerator Operator] 150 mg PO BID 07/06/16 [History] hydrOXYzine HCl [Hydroxyzine HCl] 100 mg PO TID 07/06/16 [History] Loratadine [Allergy Relief] 10 mg PO DAILY 09/22/16 [History] Propranolol [Inderal] 10 mg PO BID 11/22/16 [History] ARIPiprazole [Abilify] 10 mg PO DAILY 01/21/17 [History] Acetaminophen [Tylenol] 650 mg PO Q6HR PRN 01/21/17 [History] Albuterol Neb [Proventil Neb] 2.5 mg IH QID PRN 01/21/17 [History] Albuterol Sulfate [Albuterol Inhaler] 2 puff IH Q4H PRN 01/21/17 [History] Budesonide/Formoterol 160/4.5 [Symbicort 160/4.5] 2 puff IH BIDR 01/21/17 [ History] Etodolac [Lodine] 400 mg PO BIDWM 01/21/17 [History] Naloxone HCl [Narcan] 4 mg NS AD PRN 01/21/17 [History] Naltrexone HCl [Revia] 50 mg PO HS 01/21/17 [History] Oxybutynin [Ditropan] 5 mg PO TID 01/21/17 [History] Sildenafil Citrate [Viagra] 50 mg PO AD PRN 01/21/17 [History] Tiotropium [Spiriva] 18 mcg IH DAILY 01/21/17 [History] Nicotine Patch [Nicoderm] 14 mg TD DAILY #28 patch 02/07/17 [Rx] predniSONE [PredniSONE] See Taper PO DAILY #30 tablet 02/07/17 [Rx] Allergies haloperidol [From Haldol] Adverse Reaction (Verified 01/21/17 03:41) Muscle Pain [place] Adverse Reaction (Verified 01/21/17 03:41) Weakness - Meds/Allergy Pre-op Review Medications Reviewed: Yes Allergies Reviewed: Yes Beta Blockers on Current Med List: No Anesthesia Results - Labs 02/23/17 10:33 02/23/17 10:33 - Imaging EKG: report reviewed (ST) Additional studies: ECHO EF 60% Anesthesia Exam O2 Sat Weight 69.626 kg O2 Sat by Pulse Oximetry 97 O2 Sat by Pulse Oximetry 97 O2 Sat by Pulse Oximetry 100 O2 Sat by Pulse Oximetry 98 O2 Sat by Pulse Oximetry 94 O2 Sat by Pulse Oximetry 98 O2 Sat by Pulse Oximetry 98 O2 Sat by Pulse Oximetry 99 O2 Sat by Pulse Oximetry 98 O2 Sat by Pulse Oximetry 95 O2 Sat by Pulse Oximetry 96 O2 Sat by Pulse Oximetry 94 Vital Signs Temp Pulse Resp BP Pulse Ox 98.5 F 115 20 133/120 95 02/21/17 23:16 02/21/17 23:16 02/21/17 23:16 02/21/17 23:16 02/21/17 23:16 Height: 5'8 Weight: 153 lbs NPO (# of Hours): MN Pain Scale: 0 - HEENT Pupil (Motor): Pupils equal, EOMI Mallampati: III Teeth: Missing Oral Opening: Greater than 3 - ADJUSTER ARBITRATOR LOC: Oriented ADJUSTER ARBITRATOR Motor: Normal RUE, Normal LUE, Normal RLE, Normal LLE, Normal Face ADJUSTER ARBITRATOR Sensory: Normal: RUE, LUE, RLE, LLE, Face - Cardiac Rhythm: Regular Murmur: None JVD: No Carotid Bruit: No - Pulmonary Breath Sounds: bilateral Clear Respiratory Effort: Symmetrical Anesthesia Assess/Plan ASA Score: 4 (Severe COPD on home oxygen) Modified Soraya Scale for Level of Consciousness: Cooperative, oriented, and tranquil Anesthetic Plan: General Monitoring Plan: Standard Monitors Recovery Plan: PACU (Discussed GA, agrees to proceed)
[2017-02-23] MEDS ORDERED: Dexamethasone 4 MG/ML VIAL ONE (21:01)
[2017-02-23] MEDS ORDERED: *HR* Propofol 200 MG/20 ML VIAL IVP ONE (21:01)
[2017-02-23] MEDS ORDERED: Ondansetron 4 MG/2 ML VIAL ONE (21:01)
[2017-02-23] MEDS ORDERED: *HR* FentaNYL (PF) 100 MCG/2 ML VIAL ONE (21:01)
[2017-02-23] MEDS ORDERED: Lidocaine -MPF 2% 2 ML VIAL ONE (21:01)
[2017-02-23] MEDS ORDERED: Bupivacaine/EPI 1:200k 0.25%PF 30 ML VIAL ONE (21:20)
--- NOTE | 2017-02-23 21:50 | Operative Note ---
Date of procedure: 02/23/17 Pre-op diagnosis: abscess left antecubital fossa Post-op diagnosis: same Procedure: Inicision and drainage abscess left antecubital fossa Anesthesia: other (laryngomask airway) Local Anesthetics: 0.25% Sensorcaine HCL with Epinephrine 1:200,000 SubQ (cc) ( 5 mL) Surgeon: Antonio López Estimated blood loss (cc): 2 IV fluids (cc): 500 Specimen: aerobic and anaerobic cultures Condition: stable Disposition: PACU Procedure in Detail: She was brought to the operating room where he was placed supine upon the operating room table. The patient was appropriately identified as to person, procedure, and laterality. Accuracy of this information was confirmed by the proceeded team. The patient was then anesthetized using laryngomask airway by Dr Ivan Nj. The left arm was prepped and draped in usual sterile fashion. At Dr. Nj's request, 5 mL of 0.25% bupivacaine with 1 200,000 epinephrine was infiltrated locally. Over the point of maximal induration and swelling, a transverse incision was made. As the incision was carried through the skin. Material was encountered. Aerobic and anaerobic cultures were obtained. In the surrounding area some black necrotic tissue was also encountered. It is quite likely that the basilic vein is him but this is likely a chronic situation. As the patient was under light general anesthesia was now possible to complete an arm exploration and excision of this vein. The necrotic tissue was debrided followed by copious irrigation of the wound. This was accomplished with approximately 1 mm of sterile saline using a pulsatile irrigation system (PulsaVac). Half-inch to 4 gauze was applied followed by 4 x 4 gauze followed by Kerlix gauze wrap. The patient was taken to recovery in stable condition. Needle, sponge, and instrument counts were correct at the close of the case.
--- NOTE | 2017-02-23 22:06 | Anesthesia Evaluation Post Op ---
Date of Encounter: 02/23/17 Time of Encounter: 22:10 - Vital Signs Vital Signs: Vital Signs/O2 Sat/Glucose, Most Current Temp Pulse Resp BP Pulse Ox 02/23/17 21:57 84 16 114/78 95 02/23/17 21:47 98.2 F 82 16 117/70 100 02/23/17 19:00 98.7 F 98 18 132/81 97 - Lungs Lungs: Clear Ascult./Percussion - Airway Airway: Non-obstructed - Cardiovascular Regular Rate - Mental Status Mental Status: Alert & Oriented, Answers Appropriately - Pain Pain Scale: 0 - Nausea Vomiting Nausea Vomiting: Not Present - Hydration Hydration: Ice chips - Discharge PostOp Status: Transfer Patient to floor
[2017-02-23] MEDS: Melatonin 3 MG TABLET PO SCH (22:35)
[2017-02-24] MEDS ORDERED: Ipratropium/Albuterol Neb 3 ML IH ONE ×3 (01:33→01:55)
[2017-02-24] MEDS ORDERED: Ipratropium/Albuterol Neb 3 ML ONE (01:54)
[2017-02-24] MEDS ORDERED: methylPREDNISolone 125 MG/2 ML VIAL IVP ONE (01:57)
[2017-02-24 02:09] LABS: ABG Base Excess 8.6 mEq/L (-2.0 to 3.0); ABG HCO3 38.6 mEQ/L (21-27); ABG Oxygen Saturation 89 % (95-98); ABG PH 7.25 pH Units (7.32-7.45); ABG PO2 65 mmHg (85-104); ABG TCO2 41.3 mEq/L (20-26)
[2017-02-24 02:12] LABS: ABG PCO2 88 mmHg (35-45); Blood Gas FiO2 60 %; Blood Gas Liter Flow 10 L/MIN
[2017-02-24] MEDS: 0.9 % Sodium Chloride 1,000 ML IVC SCH ×2 (03:11→15:45)
[2017-02-24] MEDS: Albuterol 2.5 MG/3 ML NEBULIZER IH SCH ×6 (03:55→23:01)
[2017-02-24] MEDS: Ipratropium Neb 0.5 MG NEBULIZER IH SCH ×6 (03:55→23:01)
[2017-02-24 04:10] LABS: Hematocrit 28.7 % (37.5-50.1); Hemoglobin 9.2 g/dL (12.9-16.9); Immature Granulocytes % 0.6 % (0-4); Lymphocytes # 0.4 K/mcL (0.6-4.6); Mean Corpuscular HGB Conc 32.1 g/dL (31.6-35.5); Mean Corpuscular Volume 93.5 fL (83.0-100.0); Mean Platelet Volume 9.8 fL (9.4-12.4); Monocytes # 0.2 K/mcL (0.0-1.3); Monocytes % 2.7 %; Neutrophils # 5.8 K/mcL (1.6-8.9); Platelet Count 127 K/mcL (140-400); Red Blood Count 3.07 M/mcL (4.19-5.50); Red Cell Distribution Width 13.2 % (11.5-14.5); Segmented Neutrophils % 90.7 %
[2017-02-24 04:38] LABS: BUN/Creatinine Ratio 27 (6-26); Blood Urea Nitrogen 22 mg/dL (8-26); Calcium 8.7 mg/dL (8.6-10.8); Carbon Dioxide 34 mEq/L (19-29); Chloride 95 mEq/L (98-109); Glucose 374 mg/dL (70-99); Osmolality,Calculated 297 (280-300); Potassium 4.1 mEq/L (3.5-4.5); Sodium 134 mEq/L (136-145); eGFR For African Americans > 60 (> 60); eGFR For Non-African Americans > 60 (> 60)
[2017-02-24] MEDS: *HR* Heparin 5,000 UNIT/ML VIAL SQ SCH ×2 (05:26→18:09)
[2017-02-24] MEDS ORDERED: Naloxone 0.4 MG/ML INJ IVP PRN (07:17)
[2017-02-24] MEDS ORDERED: Vancomycin 1,000 MG in D5% in Water 250 ML IVPB SCH (07:17)
[2017-02-24] MEDS ORDERED: *HR* LORazepam 2 MG/ML VIAL IVP ONE (07:17)
[2017-02-24] MEDS ORDERED: Acetaminophen 325 MG TABLET PO PRN (07:17)
[2017-02-24] MEDS: MethylPREDNISolone 40 MG/ML VIAL IVP SCH ×2 (09:42→15:43)
[2017-02-24] MEDS: hydrOXYzine pamoate 25 MG CAPSULE PO SCH ×3 (09:44→19:47)
[2017-02-24] MEDS: Nicotine 14 MG PATCH.TD24 TD SCH (09:44)
[2017-02-24] MEDS: ARIPiprazole 10 MG TABLET PO SCH (09:45)
[2017-02-24] MEDS: Azithromycin 250 MG TABLET PO SCH (09:45)
[2017-02-24] MEDS: Lactobacillus 1 EACH CAP.SPRINK PO SCH (09:45)
[2017-02-24] MEDS: Aspirin Enteric Coated 81 MG Tablet PO SCH (09:46)
[2017-02-24] MEDS: Baclofen 10 MG TABLET PO SCH ×3 (09:46→19:46)
[2017-02-24] MEDS: (Naltrexone Hcl [Revia] 50 MG) PO SCH ×2 (09:46→19:47)
[2017-02-24] MEDS: Famotidine 20 MG TABLET PO SCH ×2 (09:46→19:47)
[2017-02-24] MEDS: Loratadine 10 MG TABLET PO SCH (09:46)
--- NOTE | 2017-02-24 14:22 | Internal Med Progress Note ---
Date of Encounter: 02/24/17 Time of Encounter: 13:10 - Assessment and plan (1) Acute exacerbation of chronic obstructive airways disease Current Visit: Yes Status: Acute Assessment and plan: Wheezing heard throughout, pt requriring 02 to maintain sats >92%. Pt currently 96% on 3L. Wheezing worse with forced exhalation. Continue scheduled and prn nebulizer treatments Continue IV steroids Maintain 02, titrate as needed to maintain sats >92% Continue Zithromax (2) Tobacco abuse Current Visit: No Status: Chronic Assessment and plan: Patient states that he would like to quit smoking, continue discussing prior to discharge. (3) Acute respiratory failure with hypoxia Current Visit: No Status: Acute Assessment and plan: Plan as above. (4) Bipolar disease, chronic Current Visit: Yes Status: Chronic Assessment and plan: Chronic. Pt is on Abilify. (5) IV drug abuse Current Visit: Yes Status: Chronic Assessment and plan: Pt admits to IV drug use. States that he traditionally injects into left AC. He said that about a month ago he had a "real bad abscess" that he "stuck a needle in and drained it myself." He feels that it is a possiblity, when asked, that he may have broken off a needle in his arm. (6) Superficial venous thrombosis of left arm Current Visit: Yes Status: Acute Assessment and plan: Pt was taken to surgery last night for CT findings, vein excision per Dr. López. Surgery is following. Dressing changes Cultures obtained during surgery and pending. Vancomycin 1000mg IV q12 hours (7) DVT prophylaxis Current Visit: No Status: Acute Assessment and plan: Heparin SQ (8) Foreign body (FB) in soft tissue Current Visit: Yes Status: Acute Assessment and plan: Plan as above. Continue IV antibiotics. Surgery following. Pt has no leukocytosis or fever. - Time Spent With Patient less than 15 minutes - Subjective Interval history: Pt was seen and assessed at 1310. Pt is alert and awake and states that he feels better. Pt still has wheezing with forced expirations. Pt is in no respiratory distress and speaks in long phrases without becoming dyspneic. He states that he still becomes SOB when he walks to the bathroom. He is still wearing 02 at 3L and maintaining sats. Pt has Kerlix dressing to left forearm surgical site that has some serosanguinous drainage. He rates left arm pain 5 out of 10. He is aware that he will need to stay for further evaluation for the arm. Overnight, patient was a rapid response. He had another episode like he has had since admission where he becomes short of breath, anxious. Continue current treatment - Constitutional Vitals: Temp Pulse Resp BP Pulse Ox 98.2 F 93 17 146/81 97 02/24/17 11:00 02/24/17 11:00 02/24/17 11:00 02/24/17 11:00 02/24/17 11:00 General appearance: Present: cooperative, disheveled, mild distress, A&O X 3, pleasant, answers questions appropriately - Head Head exam: Present: normal inspection - Eye Eye exam: Present: normal appearance, conjuntiva pink - ENT ENT exam: Present: mucous membranes moist, normal exam - Respiratory Respiratory exam: Present: prolonged expiratory phase, wheezes. Absent: chest wall tenderness, decreased breath sounds, CTAB, rales, respiratory distress, rhonchi, stridor, tachypnea - Cardiovascular Cardiovascular exam: Present: RRR, +S1, +S2. Absent: clicks, diastolic murmur, distant heart sounds, gallop, systolic murmur - GI/Abdominal GI/Abdominal exam: Present: normal bowel sounds, soft. Absent: distended, hepatomegaly, tenderness - Extremities Exam Extremities exam: Present: normal capillary refill, warm, radial pulses palpable and symetrical. Absent: pedal edema, tenderness - Neurological Exam Neurological exam: Present: alert, oriented X3, no focal deficits. Absent: facial droop, speech deficit - Skin Skin exam: Present: dry, intact, normal color, warm. Absent: rash, urticaria Internal Medicine: Result - Labs CBC & Chem 7: 02/24/17 03:53 02/24/17 03:53 Labs: Short CBC 02/24/17 Range/Units 03:53 WBC 6.4 (4.3-11.1) K/mcL Hgb 9.2 L (12.9-16.9) g/dL Hct 28.7 L (37.5-50.1) % Plt Count 127 L (140-400) K/mcL Neutrophils # 5.8 (1.6-8.9) K/mcL BMP 02/24/17 03:53 Sodium 134 L Potassium 4.1 Chloride 95 L Carbon Dioxide 34 H BUN 22 Creatinine 0.83 Glucose 374 H Calcium 8.7 - ABG Interpretation ABG results: ABG ABG pH 7.25 pH Units (7.32-7.45) L 02/24/17 02:00 ABG pCO2 88 mmHg (35-45) H* 02/24/17 02:00 ABG pO2 65 mmHg (85-104) L 02/24/17 02:00 ABG O2 Saturation 89 % (95-98) L 02/24/17 02:00 - Impressions Impressions Chest X-Ray 02/24/17 01:58 IMPRESSION: Negative portable chest. D/ / Patrick Martin MD / Patrick Martin MD Interpreting Provider: Patrick Martin MD - VTE Documentation of Mechanical Device: Intermittent pneumatic compression device Consult Discharge Plan - Plan [facility]errals: [facility] [Primary Care Provider] -
--- NOTE | 2017-02-24 15:07 | Venous Imaging Report ---
UE Venous Duplex Patient Name:Pa Sosa Order Number:[id number] Procedure Date:02/22/2017 Date:1955ge:61 yrs Gender:Male Location:[facility] Room #: 3B37 Train Master:Yoana Asher RVT, RDCS Referring MD:Tegan Moore CNP pilot plant supervisor:None Reading MD:Scott Gonzáles MD , FACS Primary Indications:swelling Secondary Indications: Risk Factors Yes/No IV Drug Use Yes Impressions: Recommendations: Test completed on 02/22/2017 at 4:45:47 pm. Critical findings reported to Tegan Moore by phone at 4:45:56 pm on 02/22/2017 by Yoana Asher RVT, RDCS. Findings Venous Duplex Results: Left: There is an acute occlusive thrombus seen in the left basilic anticubital. Upper Extremity Venous Duplex Side Vein Compress Spontaneous Flow Augment Right Jugular Normal Yes Phasic Yes Right Subclavian Normal Yes Phasic Yes Right Axillary Normal Yes Phasic Yes Right Brachial Normal Yes Phasic Yes Right Cephalic Normal Yes Phasic Yes Right Basilic Normal Yes Phasic Yes Right Radial Normal Yes Phasic Yes Right Ulnar Normal Yes Phasic Yes Left Jugular Normal Yes Phasic Yes Left Subclavian Normal Yes Phasic Yes Left Axillary Normal Yes Phasic Yes Left Brachial Normal Yes Phasic Yes Left Cephalic Normal Yes Phasic Yes Left Basilic Anticubital None no Absent no Left Radial Normal Yes Phasic Yes Left Ulnar Normal Yes Phasic Yes Updated by [email or web address] on 02/22/2017 4:48:16 PM Scott Gonzáles MD electronically signed on 02/23/2017 10:15:21 AM with status of Final
--- NOTE | 2017-02-24 15:10 | Electrocardiograph Report ---
[place] [id number] Test Date: 2017-02-21 Pat Name: Pa Sosa Department: 104 Room: 3B37 Gender: M Bat Person: : 1955 Requested By: Sesar Hopson Order Number: [id number] Reading MD: Mone Sharma Measurements Intervals [place] Rate: 111 P: 81 FL: 128 QRS: 71 QRSD: 84 T: 60 QT: 294 QTc: 360 Interpretive Statements SINUS TACHYCARDIA ABNORMAL RHYTHM ECG Electronically Signed On 02-23-2017 12:02:14 EDT by Mone Sharma
[2017-02-24] MEDS: Vancomycin 1,000 MG in D5% in Water 250 ML IVPB SCH (15:44)
--- NOTE | 2017-02-24 19:32 | General Surgery Progress Note ---
Date of Encounter: 02/24/17 Time of Encounter: 19:23 Subjective Narrative: General Surgery - POD #1 on my arrival at bedside - patient was in acute distress, disconnected from both his nasal oxygen and BiPAP. The patient indicates that he was trying to go to the bathroom. With orthodoxy of nasal oxygen and BiPap and subsequent respiratory treatment per Respiratory Therapy, the respiratory distress subsided and the anxiety diminished. The arm wound appeared clean. The dressing had been recently changed and was intact. The dressing was removed, the packing was removed. The wound appeared clean. No purulence detected. A gauze dressing was applied after cleansing with Betadine followed by Kerlix wrap. Coban was applied to the dressing to secure it in place/ Aerobic and anaerobic cultures obtained during I&D obtained. Objective Vital Signs - Last 8 Hours Temp Pulse Resp BP Pulse Ox 02/24/17 18:57 99.2 F 120 24 150/87 94 02/24/17 16:55 24 95 Intake and Output 02/24/17 02/24/17 02/24/17 07:59 15:59 23:59 Intake Total 240 / 240 Output Total 450 / 450 Balance -210 / -210 Intake: Oral 240 / 240 Output: Urine 450 / 450 Other: Meal Dinner Percent of Meal Consumed 100% # Bowel Movements 1 Blood Glucose* 304 - Labs 02/24/17 03:53 02/24/17 03:53 - VTE Documentation of Mechanical Device: Intermittent pneumatic compression device Consult Discharge Plan - Plan Referrals: [facility] [Primary Care Provider] -
[2017-02-24] MEDS: Melatonin 3 MG TABLET PO SCH (19:46)
[2017-02-24] MEDS: *HR* LORazepam 2 MG/ML VIAL IVP PRN (21:51)
[2017-02-25] MEDS: MethylPREDNISolone 40 MG/ML VIAL IVP SCH ×4 (01:00→23:46)
[2017-02-25] MEDS ORDERED: D5% in Water 1,000 ML IVC PRN (01:20)
[2017-02-25] MEDS ORDERED: Dextrose Gel 15 GM PO PRN ×2 (01:20)
[2017-02-25] MEDS ORDERED: *HR* Dextrose 50 % in Water (Syg) 50 ML SYRINGE IVP PRN (01:20)
[2017-02-25] MEDS: Vancomycin 1,000 MG in D5% in Water 250 ML IVPB SCH ×3 (01:30→16:08)
[2017-02-25] MEDS: *HR* LORazepam 2 MG/ML VIAL IVP PRN ×3 (01:36→18:11)
[2017-02-25] MEDS: Insulin LISPRO 300 UNITS/3 ML VIAL SQ SCH ×5 (01:56→23:18)
[2017-02-25] MEDS: Ipratropium Neb 0.5 MG NEBULIZER IH SCH ×5 (03:23→20:33)
[2017-02-25] MEDS: Albuterol 2.5 MG/3 ML NEBULIZER IH SCH ×5 (03:23→20:33)
[2017-02-25 04:20] LABS: Hematocrit 27.6 % (37.5-50.1); Hemoglobin 9.1 g/dL (12.9-16.9); Immature Granulocytes % 1.3 % (0-4); Lymphocytes # 0.3 K/mcL (0.6-4.6); Lymphocytes % 5.1 %; Mean Corpuscular Hemoglobin 30.3 pg (28.0-33.3); Mean Platelet Volume 9.5 fL (9.4-12.4); Monocytes # 0.3 K/mcL (0.0-1.3); Platelet Count 130 K/mcL (140-400); Red Cell Distribution Width 13.2 % (11.5-14.5); Segmented Neutrophils % 89.6 %
[2017-02-25 04:34] LABS: BUN/Creatinine Ratio 29 (6-26); Blood Urea Nitrogen 22 mg/dL (8-26); Calcium 8.7 mg/dL (8.6-10.8); Carbon Dioxide 36 mEq/L (19-29); Chloride 98 mEq/L (98-109); Glucose 299 mg/dL (70-99); Osmolality,Calculated 300 (280-300); Potassium 4.1 mEq/L (3.5-4.5); Sodium 138 mEq/L (136-145); eGFR For African Americans > 60 (> 60); eGFR For Non-African Americans > 60 (> 60)
[2017-02-25] MEDS: *HR* Heparin 5,000 UNIT/ML VIAL SQ SCH ×2 (04:35→18:01)
[2017-02-25] MEDS: 0.9 % Sodium Chloride 1,000 ML IVC SCH ×2 (05:31→20:29)
[2017-02-25] MEDS: Azithromycin 250 MG TABLET PO SCH (08:26)
[2017-02-25] MEDS: hydrOXYzine pamoate 25 MG CAPSULE PO SCH ×3 (08:26→20:24)
[2017-02-25] MEDS: Nicotine 14 MG PATCH.TD24 TD SCH (08:26)
[2017-02-25] MEDS: Famotidine 20 MG TABLET PO SCH ×2 (08:27→20:26)
[2017-02-25] MEDS: Loratadine 10 MG TABLET PO SCH (08:27)
[2017-02-25] MEDS: Aspirin Enteric Coated 81 MG Tablet PO SCH (08:27)
[2017-02-25] MEDS: Baclofen 10 MG TABLET PO SCH ×3 (08:27→20:25)
[2017-02-25] MEDS: Lactobacillus 1 EACH CAP.SPRINK PO SCH (08:27)
[2017-02-25] MEDS: ARIPiprazole 10 MG TABLET PO SCH (08:27)
--- NOTE | 2017-02-25 09:35 | Internal Med Progress Note ---
Addendum entered and electronically signed by Rudy Champagne DO 02/25/17 10:54 : Heriberto Sats 88-92% not >92% Original Note: <Rudy Champagne - Last Filed: 02/25/17 10:09> Date of Encounter: 02/25/17 Time of Encounter: 09:20 - Assessment and plan (1) Acute exacerbation of chronic obstructive airways disease Current Visit: Yes Status: Acute Assessment and plan: Wheezing heard throughout, pt requiring 02 to maintain sats >92%. Pt currently 95% on 3L. Wheezing worse with forced exhalation. Continue scheduled and prn nebulizer treatments Continue IV steroids Maintain 02, titrate as needed to maintain sats >92% Continue Zithromax Respiratory status clearly worsened by anxiety. continue prn ativan to decrease agitation. (2) Acute respiratory failure with hypoxia Current Visit: No Status: Acute Assessment and plan: Continue current regimen. (3) Anxiety Current Visit: Yes Status: Chronic Assessment and plan: Patient's respiratory issues are largely affected by his anxiety. His breathing and oxygenation improve with ativan. consider psych consult to better address his psychiatric issues which are making it difficult to manage his respiratory issues. continue PRN ativan. (4) Bipolar disease, chronic Current Visit: Yes Status: Chronic Assessment and plan: Chronic. continue home Abilify. (5) IV drug abuse Current Visit: Yes Status: Chronic Assessment and plan: Pt admits to IV cocaine use which he routinely injects into left AC. He said that about a month ago he had a "real bad abscess" that he "stuck a needle in and drained it myself." He feels that it is a possibility, when asked, that he may have broken off a needle in his arm. (6) Superficial venous thrombosis of left arm Current Visit: Yes Status: Acute Assessment and plan: POD 2: Pt was taken to surgery 02/[address] findings, vein excision per Dr. López. Surgery is following. Dressing changes Cultures obtained during surgery and pending. Vancomycin 1000mg IV q12 hours (7) Foreign body (FB) in soft tissue Current Visit: Yes Status: Acute Assessment and plan: Continue IV antibiotics. Surgery following. Pt has no leukocytosis or fever. - Subjective Interval history: Patient reports being short of breath upon entering the room. Patient having increased work of breathing. Respiratory distress appears to be anxiety related. Positive wheezes through out on lung exam. Patient's breathing improved s/p 0.5 ativan. Patient reports pain in his L arm s/p surgery. Patient' s bandage has some serrosanguinous drainage on it. - Constitutional Vitals: Temp Pulse Resp BP Pulse Ox 98.1 F 85 18 131/80 95 02/25/17 07:26 02/25/17 07:26 02/25/17 07:26 02/25/17 07:26 02/25/17 07:26 General appearance: Present: cooperative, disheveled, mild distress, A&O X 3, pleasant, answers questions appropriately - Eye Eye exam: Present: PERRL - ENT ENT exam: Present: mucous membranes moist - Respiratory Respiratory exam: Present: accessory muscle use, respiratory distress, wheezes - Cardiovascular Cardiovascular exam: Present: RRR, +S1, +S2. Absent: gallop, rubs, systolic murmur - GI/Abdominal GI/Abdominal exam: Present: normal bowel sounds, soft. Absent: tenderness - Extremities Exam Additional comments: poor hygeine of fingers and toes - Incison Incision: Present: serosanguinous (on bandages on LUE. ) - Neurological Exam Neurological exam: Present: alert, oriented X3. Absent: speech deficit - Psychiatric Psychiatric exam: Present: anxious Internal Medicine: Result - Labs CBC & Chem 7: 02/25/17 04:08 02/25/17 04:08 Labs: Short CBC 02/25/17 Range/Units 04:08 WBC 6.7 (4.3-11.1) K/mcL Hgb 9.1 L (12.9-16.9) g/dL Hct 27.6 L (37.5-50.1) % Plt Count 130 L (140-400) K/mcL Neutrophils # 6.0 (1.6-8.9) K/mcL BMP 02/25/17 04:08 Sodium 138 Potassium 4.1 Chloride 98 Carbon Dioxide 36 H BUN 22 Creatinine 0.76 Glucose 299 H Calcium 8.7 - ABG Interpretation ABG results: ABG ABG pH 7.25 pH Units (7.32-7.45) L 02/24/17 02:00 ABG pCO2 88 mmHg (35-45) H* 02/24/17 02:00 ABG pO2 65 mmHg (85-104) L 02/24/17 02:00 ABG O2 Saturation 89 % (95-98) L 02/24/17 02:00 - VTE Documentation of Mechanical Device: Intermittent pneumatic compression device Consult Discharge Plan - Plan [facility]errals: [facility]Primary Care Provider[facility] - <Charles Blanco - Last Filed: 02/25/17 19:07> Date of Encounter: 02/25/17 - Assessment and plan (1) Acute on chronic respiratory failure with hypoxemia Current Visit: No Status: Acute (2) Acute exacerbation of chronic obstructive airways disease Current Visit: Yes Status: Acute (3) Superficial foreign body of left axilla without major open wound and without infection Current Visit: Yes Status: Acute Qualifiers: Encounter type: subsequent encounter Qualified Code(s): S40.852D - Superficial foreign body of left upper arm, subsequent encounter (4) IV drug abuse Current Visit: Yes Status: Chronic (5) Chronic hepatitis C Current Visit: No Status: Chronic Qualifiers: Hepatic coma status: without hepatic coma Qualified Code(s): B18.2 - Chronic viral hepatitis C (6) Tobacco abuse Current Visit: No Status: Chronic (7) Schizoaffective disorder, bipolar type Current Visit: No Status: Chronic - Constitutional Vitals: Temp Pulse Resp BP Pulse Ox 98.5 F 100 24 161/83 99 02/25/17 14:49 02/25/17 17:24 02/25/17 18:22 02/25/17 14:49 02/25/17 18:22 Internal Medicine: Result - Labs CBC & Chem 7: 02/25/17 04:08 02/25/17 04:08 Labs: Short CBC 02/25/17 Range/Units 04:08 WBC 6.7 (4.3-11.1) K/mcL Hgb 9.1 L (12.9-16.9) g/dL Hct 27.6 L (37.5-50.1) % Plt Count 130 L (140-400) K/mcL Neutrophils # 6.0 (1.6-8.9) K/mcL BMP 02/25/17 04:08 Sodium 138 Potassium 4.1 Chloride 98 Carbon Dioxide 36 H BUN 22 Creatinine 0.76 Glucose 299 H Calcium 8.7 - ABG Interpretation ABG results: ABG ABG pH 7.25 pH Units (7.32-7.45) L 02/24/17 02:00 ABG pCO2 88 mmHg (35-45) H* 02/24/17 02:00 ABG pO2 65 mmHg (85-104) L 02/24/17 02:00 ABG O2 Saturation 89 % (95-98) L 02/24/17 02:00 - Attending Attestation I examined this patient and my medical decision-making was reviewed with the Resident Physician on 02/25/17. I agree with the documented findings, disposition and treatment plan as described except to the extent set forth below. Mr. Sosa is currently admitted for acute exac COPD and arm infection. He remains high risk due to potential for worsening respiratory status. Mr Sosa is taking off oxygen to go to bathroom and desaturates. No fever or chills. Arm is doing OK. Pain tolerable. Exam Alert. Comfortable Mucus membranes dry Heart reg Decreased breath sounds Abd soft I/P 1. Hypoxia 2. COPD exac 3. Arm infection Further diagnoses and plan as above.
--- NOTE | 2017-02-25 16:48 | General Surgery Progress Note ---
Date of Encounter: 02/25/17 Time of Encounter: 16:45 Subjective Narrative: General Surgery: POD #2 Patient continues to complain of pain left arm dressing changed. Wound clean; no purulent drainage on the dressing , no pus in the wound. The surrounding induration and swelling diminished. Gauze dressing re applied. Operative cultures - normal skin floyd, no apparent pathogens isolated. This is consistent with the likelihood that this was an infected needle track from IV drug abuse. Objective Vital Signs - Last 8 Hours Temp Pulse Resp BP Pulse Ox 02/25/17 14:49 98.5 F 100 18 161/83 96 02/25/17 11:36 20 98 02/25/17 11:04 98.3 F 104 20 142/87 98 Intake and Output 02/25/17 02/25/17 02/25/17 07:59 15:59 23:59 Intake Total 1250 / 1250 600 / 600 Output Total 400 / 400 Balance 850 / 850 600 / 600 Intake: IV Fluids 1250 / 1250 0.9 % Sodium Chloride 1, 1000 / 1000 000 ML @ 80 mls/hr IVC . [id number] [facility] Rx#: [id number] Vancocin 1,000 MG In 250 / 250 Dextrose 5% 250 ML @ 167 mls/hr IVPB Q12H [facility] Rx#: [id number] Oral 600 / 600 Output: Urine 400 / 400 Other: Meal Breakfast Percent of Meal Consumed 100% # Voids 3 Weight 73.936 kg Blood Glucose* 233 170 Patient Weight 02/25/17 23:59 Weight 73.936 kg - Labs 02/25/17 04:08 02/25/17 04:08 Diabetes panel 02/25/17 Range/Units 04:08 Sodium 138 (136-145) mEq/L Potassium 4.1 (3.5-4.5) mEq/L Chloride 98 (98-109) mEq/L Carbon Dioxide 36 H (19-29) mEq/L BUN 22 (8-26) mg/dL Creatinine 0.76 (0.72-1.25) mg/dL Glucose 299 H (70-99) mg/dL Calcium 8.7 (8.6-10.8) mg/dL Calcium panel 02/25/17 Range/Units 04:08 Calcium 8.7 (8.6-10.8) mg/dL Pituitary panel 02/25/17 Range/Units 04:08 Sodium 138 (136-145) mEq/L Potassium 4.1 (3.5-4.5) mEq/L Chloride 98 (98-109) mEq/L Carbon Dioxide 36 H (19-29) mEq/L BUN 22 (8-26) mg/dL Creatinine 0.76 (0.72-1.25) mg/dL Glucose 299 H (70-99) mg/dL Calcium 8.7 (8.6-10.8) mg/dL Adrenal panel 02/25/17 Range/Units 04:08 Sodium 138 (136-145) mEq/L Potassium 4.1 (3.5-4.5) mEq/L Chloride 98 (98-109) mEq/L Carbon Dioxide 36 H (19-29) mEq/L BUN 22 (8-26) mg/dL Creatinine 0.76 (0.72-1.25) mg/dL Glucose 299 H (70-99) mg/dL Calcium 8.7 (8.6-10.8) mg/dL - VTE Documentation of Mechanical Device: Intermittent pneumatic compression device Consult Discharge Plan - Plan [facility]errals: [facility] [Primary Care Provider] -
[2017-02-25] MEDS: Melatonin 3 MG TABLET PO SCH (20:25)
[2017-02-25] MEDS: (Naltrexone Hcl [Revia] 50 MG) PO SCH (23:19)
[2017-02-26] MEDS: Albuterol 2.5 MG/3 ML NEBULIZER IH SCH ×7 (00:11→23:58)
[2017-02-26] MEDS: Ipratropium Neb 0.5 MG NEBULIZER IH SCH ×7 (00:12→23:58)
[2017-02-26] MEDS: *HR* LORazepam 2 MG/ML VIAL IVP PRN ×3 (02:10→21:05)
[2017-02-26 05:16] LABS: BUN/Creatinine Ratio 37 (6-26); Blood Urea Nitrogen 29 mg/dL (8-26); Calcium 8.9 mg/dL (8.6-10.8); Carbon Dioxide 38 mEq/L (19-29); Chloride 97 mEq/L (98-109); Glucose 210 mg/dL (70-99); Osmolality,Calculated 300 (280-300); Potassium 4.3 mEq/L (3.5-4.5); Sodium 139 mEq/L (136-145); eGFR For African Americans > 60 (> 60); eGFR For Non-African Americans > 60 (> 60)
[2017-02-26 05:19] LABS: Hematocrit 31.3 % (37.5-50.1); Hemoglobin 10.3 g/dL (12.9-16.9); Mean Corpuscular HGB Conc 32.9 g/dL (31.6-35.5); Mean Corpuscular Hemoglobin 30.6 pg (28.0-33.3); Mean Corpuscular Volume 92.9 fL (83.0-100.0); Mean Platelet Volume 9.8 fL (9.4-12.4); Platelet Count 154 K/mcL (140-400); Red Blood Count 3.37 M/mcL (4.19-5.50); Red Cell Distribution Width 13.1 % (11.5-14.5)
[2017-02-26] MEDS ORDERED: Vancomycin 1,250 MG in D5% in Water 250 ML IVPB SCH (06:00)
[2017-02-26] MEDS: *HR* Heparin 5,000 UNIT/ML VIAL SQ SCH ×2 (06:01→18:11)
--- NOTE | 2017-02-26 09:49 | Internal Med Progress Note ---
<Rudy Champagne - Last Filed: 02/26/17 13:23> Date of Encounter: 02/26/17 Time of Encounter: 09:40 - Assessment and plan (1) Acute exacerbation of chronic obstructive airways disease Current Visit: Yes Status: Acute Assessment and plan: -Wheezing heard throughout, -Pt currently 99% on 4L. - Maintain 02, titrate as needed to maintain sats between 88 and 92% -instructed nursing he does not need to be in the high 90s and that it is detrimental for him to be so high. -Continue scheduled and prn nebulizer treatments -Continue IV steroids -Continue Zithromax -Respiratory status clearly worsened by anxiety. continue prn ativan to decrease agitation. (2) Acute respiratory failure with hypoxia Current Visit: No Status: Acute Assessment and plan: -Continue current regimen. (3) Anxiety Current Visit: Yes Status: Chronic Assessment and plan: -Patient's respiratory issues are largely affected by his anxiety. -His breathing and oxygenation improve with ativan. -consider psych consult to better address his psychiatric issues which are making it difficult to manage his respiratory issues. -continue PRN ativan. (4) Bipolar disease, chronic Current Visit: Yes Status: Chronic Assessment and plan: Chronic. -continue home Abilify. (5) IV drug abuse Current Visit: Yes Status: Chronic Assessment and plan: -Pt admits to IV cocaine use which he routinely injects into left AC. -He said that about a month ago he had a "real bad abscess" that he "stuck a needle in and drained it myself." -He feels that it is a possibility, when asked, that he may have broken off a needle in his arm. -encouraged abstinence, detox/rehab (6) Superficial venous thrombosis of left arm Current Visit: Yes Status: Acute Assessment and plan: POD 3: -Pt was taken to surgery 02/[address] findings, vein excision per Dr. López. -Surgery is following. -continue Dressing changes daily -Cultures obtained during surgery final results are negative. -continue Vancomycin 1000mg IV q12 hours - will d/c on doxycyline (7) Foreign body (FB) in soft tissue Current Visit: Yes Status: Acute Assessment and plan: -Continue IV antibiotics. -Surgery following. -Pt has no leukocytosis or fever. - Subjective Interval history: Patient reports continued SOB. He reports coughing a lot yesterday and feeling lightheaded. He also reports some loose stools but denies melena or blood in stool. Patient is on 3L of O2 at home. Nursing has been keeping his O2 levels in the mid to upper 90s. Instructed them that he should be in the low 90s. Patient has been desatting because he takes off his oxygen to go to the bathroom or when he gets up. There is also a large anxiety portion to his SOB as he is satting fien but still feels SOB, also his SOB complaints improve with ativan. - Constitutional Vitals: Temp Pulse Resp BP Pulse Ox 97.5 F L 94 16 145/95 99 02/26/17 08:19 02/26/17 08:19 02/26/17 08:19 02/26/17 08:19 02/26/17 08:19 General appearance: Present: cooperative, disheveled, mild distress, A&O X 3, pleasant, answers questions appropriately - Eye Eye exam: Present: PERRL - ENT ENT exam: Present: mucous membranes moist - Respiratory Respiratory exam: Present: wheezes (diffuse expiratory wheezes.) - Cardiovascular Cardiovascular exam: Present: RRR, +S1, +S2. Absent: gallop, rubs, systolic murmur - GI/Abdominal GI/Abdominal exam: Present: normal bowel sounds, soft. Absent: tenderness - Extremities Exam Extremities exam: Absent: pedal edema - Incison Incision: Present: clean and dry Comments: Dressing is C/D/I - Neurological Exam Neurological exam: Present: alert, oriented X3. Absent: speech deficit - Psychiatric Psychiatric exam: Present: anxious, normal affect Internal Medicine: Result - Labs CBC & Chem 7: 02/26/17 04:05 02/26/17 04:05 Labs: Short CBC 02/26/17 Range/Units 04:05 WBC 8.3 (4.3-11.1) K/mcL Hgb 10.3 L (12.9-16.9) g/dL Hct 31.3 L (37.5-50.1) % Plt Count 154 (140-400) K/mcL BMP 02/26/17 04:05 Sodium 139 Potassium 4.3 Chloride 97 L Carbon Dioxide 38 H BUN 29 H Creatinine 0.78 Glucose 210 H Calcium 8.9 - ABG Interpretation ABG results: ABG ABG pH 7.25 pH Units (7.32-7.45) L 02/24/17 02:00 ABG pCO2 88 mmHg (35-45) H* 02/24/17 02:00 ABG pO2 65 mmHg (85-104) L 02/24/17 02:00 ABG O2 Saturation 89 % (95-98) L 02/24/17 02:00 - VTE Documentation of Mechanical Device: Intermittent pneumatic compression device Consult Discharge Plan - Plan Referrals: [facility] [Primary Care Provider] - <Charles Blanco - Last Filed: 02/26/17 18:27> Date of Encounter: 02/26/17 - Assessment and plan (1) Acute on chronic respiratory failure with hypoxemia Current Visit: No Status: Acute (2) Acute exacerbation of chronic obstructive airways disease Current Visit: Yes Status: Acute (3) Superficial foreign body of left axilla without major open wound and without infection Current Visit: Yes Status: Acute Qualifiers: Encounter type: subsequent encounter Qualified Code(s): S40.852D - Superficial foreign body of left upper arm, subsequent encounter (4) IV drug abuse Current Visit: Yes Status: Chronic (5) Chronic hepatitis C Current Visit: No Status: Chronic Qualifiers: Hepatic coma status: without hepatic coma Qualified Code(s): B18.2 - Chronic viral hepatitis C (6) Tobacco abuse Current Visit: No Status: Chronic (7) Schizoaffective disorder, bipolar type Current Visit: No Status: Chronic - Constitutional Vitals: Temp Pulse Resp BP Pulse Ox 98.2 F 94 18 133/77 99 02/26/17 16:19 02/26/17 16:19 02/26/17 16:19 02/26/17 16:19 02/26/17 16:19 Internal Medicine: Result - Labs CBC & Chem 7: 02/26/17 04:05 02/26/17 04:05 Labs: Short CBC 02/26/17 Range/Units 04:05 WBC 8.3 (4.3-11.1) K/mcL Hgb 10.3 L (12.9-16.9) g/dL Hct 31.3 L (37.5-50.1) % Plt Count 154 (140-400) K/mcL BMP 02/26/17 04:05 Sodium 139 Potassium 4.3 Chloride 97 L Carbon Dioxide 38 H BUN 29 H Creatinine 0.78 Glucose 210 H Calcium 8.9 - ABG Interpretation ABG results: ABG ABG pH 7.25 pH Units (7.32-7.45) L 02/24/17 02:00 ABG pCO2 88 mmHg (35-45) H* 02/24/17 02:00 ABG pO2 65 mmHg (85-104) L 02/24/17 02:00 ABG O2 Saturation 89 % (95-98) L 02/24/17 02:00 - Attending Attestation I examined this patient and my medical decision-making was reviewed with the Resident Physician on 02/26/17. I agree with the documented findings, disposition and treatment plan as described except to the extent set forth below. Mr. Sosa is currently admitted for acute exac COPD and hypoxia. He remains moderate to high risk due to potential for worsening respiratory status. Mr Sosa is resting comfortably at this time. No fever or chills. Desaturates off oxygen. Abx stopped today. Culture negative. No fever or chills. Exam Alert. Mild resp distress at rest. Mucus membranes moist Heart reg Diffuse end exp wheeze Abd soft No edema I/P 1. Hypoxia 2. COPD Further diagnoses and plan as above.
[2017-02-26] MEDS: Insulin LISPRO 300 UNITS/3 ML VIAL SQ SCH ×4 (10:18→22:17)
[2017-02-26] MEDS: MethylPREDNISolone 40 MG/ML VIAL IVP SCH ×2 (10:19→18:11)
[2017-02-26] MEDS: hydrOXYzine pamoate 25 MG CAPSULE PO SCH ×3 (10:19→21:00)
[2017-02-26] MEDS: Famotidine 20 MG TABLET PO SCH ×2 (10:19→21:10)
[2017-02-26] MEDS: Baclofen 10 MG TABLET PO SCH ×3 (10:19→21:09)
[2017-02-26] MEDS: Aspirin Enteric Coated 81 MG Tablet PO SCH (10:20)
[2017-02-26] MEDS: Azithromycin 250 MG TABLET PO SCH (10:20)
[2017-02-26] MEDS: Lactobacillus 1 EACH CAP.SPRINK PO SCH (10:20)
[2017-02-26] MEDS: ARIPiprazole 10 MG TABLET PO SCH (10:20)
[2017-02-26] MEDS: Loratadine 10 MG TABLET PO SCH (10:21)
[2017-02-26] MEDS: Nicotine 14 MG PATCH.TD24 TD SCH (10:21)
[2017-02-26] MEDS: 0.9 % Sodium Chloride 1,000 ML IVC SCH ×2 (10:25)
--- NOTE | 2017-02-26 15:54 | General Surgery Progress Note ---
Date of Encounter: 02/26/17 Time of Encounter: 15:30 Subjective Narrative: General Surgery - POD # 3 Patient still with respiratory complaints. Becomes anxious and agitated when disconnected from his BiPAP Dressing left arm - soiled and dirty at the edges but the wound is clean and healing well. Dressing removed and replaced wih dry dterile gauze. Prior dressing was wrapped too tightly around the arm - discussed with Nursing Impression: antecubital infection / abscess due to IVDU Cultures demonstrated normal skin floyd - no apparent patholgens isolated. RECOMMENDATION - Consider discontinuation ATB Objective Vital Signs - Last 8 Hours Temp Pulse Resp BP Pulse Ox 02/26/17 13:38 98 02/26/17 11:17 18 99 02/26/17 10:51 98.0 F 97 18 142/87 97 02/26/17 08:19 97.5 F L 94 16 145/95 99 02/26/17 07:54 22 98 Intake and Output 02/25/17 02/26/17 02/26/17 23:59 07:59 15:59 Intake Total 1000 / 1000 1610 / 1610 Output Total 450 / 450 700 / 700 Balance 550 / 550 910 / 910 Intake: IV Fluids 1000 / 1000 1250 / 1250 0.9 % Sodium Chloride 1, 1000 / 1000 1000 / 1000 000 ML @ 80 mls/hr IVC . [id number] [facility] Rx#: [id number] Vancocin 1,250 MG In 250 / 250 Dextrose 5% 250 ML @ 166. 67 mls/hr IVPB Q12H [facility] Rx#:[id number] Oral 360 / 360 Output: Urine 450 / 450 700 / 700 Other: Meal Dinner Lunch Percent of Meal Consumed 50% 100% Stool Size Moderate Stool Consistency soft Stool Color Brown # Bowel Movements 1 Weight 75.07 kg Blood Glucose* 195 264 Patient Weight 02/26/17 23:59 Weight 75.07 kg - Labs 02/26/17 04:05 02/26/17 04:05 Diabetes panel 02/26/17 Range/Units 04:05 Sodium 139 (136-145) mEq/L Potassium 4.3 (3.5-4.5) mEq/L Chloride 97 L (98-109) mEq/L Carbon Dioxide 38 H (19-29) mEq/L BUN 29 H (8-26) mg/dL Creatinine 0.78 (0.72-1.25) mg/dL Glucose 210 H (70-99) mg/dL Calcium 8.9 (8.6-10.8) mg/dL Calcium panel 02/26/17 Range/Units 04:05 Calcium 8.9 (8.6-10.8) mg/dL Pituitary panel 02/26/17 Range/Units 04:05 Sodium 139 (136-145) mEq/L Potassium 4.3 (3.5-4.5) mEq/L Chloride 97 L (98-109) mEq/L Carbon Dioxide 38 H (19-29) mEq/L BUN 29 H (8-26) mg/dL Creatinine 0.78 (0.72-1.25) mg/dL Glucose 210 H (70-99) mg/dL Calcium 8.9 (8.6-10.8) mg/dL Adrenal panel 02/26/17 Range/Units 04:05 Sodium 139 (136-145) mEq/L Potassium 4.3 (3.5-4.5) mEq/L Chloride 97 L (98-109) mEq/L Carbon Dioxide 38 H (19-29) mEq/L BUN 29 H (8-26) mg/dL Creatinine 0.78 (0.72-1.25) mg/dL Glucose 210 H (70-99) mg/dL Calcium 8.9 (8.6-10.8) mg/dL - VTE Documentation of Mechanical Device: Intermittent pneumatic compression device Consult Discharge Plan - Plan Referrals: [facility] [Primary Care Provider] -
[2017-02-26] MEDS ORDERED: Vancomycin 1,750 MG in D5% in Water 500 ML IVPB SCH (18:00)
[2017-02-26] MEDS: Melatonin 3 MG TABLET PO SCH (21:00)
[2017-02-26] MEDS: (Naltrexone Hcl [Revia] 50 MG) PO SCH (21:10)
[2017-02-27] MEDS: 0.9 % Sodium Chloride 1,000 ML IVC SCH ×2 (00:30→13:41)
[2017-02-27] MEDS: MethylPREDNISolone 40 MG/ML VIAL IVP SCH ×3 (00:31→17:59)
[2017-02-27] MEDS: Albuterol 2.5 MG/3 ML NEBULIZER IH SCH ×2 (04:27→08:09)
[2017-02-27] MEDS: Ipratropium Neb 0.5 MG NEBULIZER IH SCH ×2 (04:27→08:09)
[2017-02-27] MEDS: *HR* Heparin 5,000 UNIT/ML VIAL SQ SCH ×2 (05:52→18:14)
[2017-02-27 07:51] LABS: BUN/Creatinine Ratio 32 (6-26); Blood Urea Nitrogen 24 mg/dL (8-26); Calcium 8.4 mg/dL (8.6-10.8); Carbon Dioxide 38 mEq/L (19-29); Chloride 92 mEq/L (98-109); Glucose 236 mg/dL (70-99); Osmolality,Calculated 294 (280-300); Potassium 4.2 mEq/L (3.5-4.5); Sodium 136 mEq/L (136-145); eGFR For African Americans > 60 (> 60); eGFR For Non-African Americans > 60 (> 60)
[2017-02-27] MEDS: Loratadine 10 MG TABLET PO SCH (08:56)
[2017-02-27] MEDS: Baclofen 10 MG TABLET PO SCH ×3 (08:56→20:18)
[2017-02-27] MEDS: Lactobacillus 1 EACH CAP.SPRINK PO SCH (08:56)
[2017-02-27] MEDS: Aspirin Enteric Coated 81 MG Tablet PO SCH (08:57)
[2017-02-27] MEDS: Famotidine 20 MG TABLET PO SCH ×2 (08:58→20:18)
[2017-02-27] MEDS: Nicotine 14 MG PATCH.TD24 TD SCH (08:58)
--- NOTE | 2017-02-27 08:58 | Internal Med Progress Note ---
<HomerjillindaRudy ledezma - Last Filed: 02/27/17 12:32> Date of Encounter: 02/27/17 Time of Encounter: 08:45 - Assessment and plan (1) Acute exacerbation of chronic obstructive airways disease Current Visit: Yes Status: Acute Assessment and plan: -Wheezing heard throughout, but improved today -Pt currently 97% on 4L. - Maintain 02, titrate as needed to maintain sats between 88 and 92% -instructed nursing he does not need to be in the high 90s and that it is detrimental for him to be so high. Nursing reported understanding and stated she will titrate patient down. -Continue scheduled and prn nebulizer treatments -Continue IV steroids -Continue IV Zithromax -Respiratory status clearly worsened by anxiety. continue prn ativan to decrease agitation. (2) Acute respiratory failure with hypoxia Current Visit: No Status: Acute Assessment and plan: -Continue current regimen described above (3) Anxiety Current Visit: Yes Status: Chronic Assessment and plan: -Patient's respiratory issues are largely affected by his anxiety. -His breathing and oxygenation improve with ativan. -continue PRN ativan. (4) Bipolar disease, chronic Current Visit: Yes Status: Chronic Assessment and plan: Chronic. -continue home Abilify. (5) IV drug abuse Current Visit: Yes Status: Chronic Assessment and plan: -Pt admits to IV cocaine use which he routinely injects into left AC. (6) Superficial venous thrombosis of left arm Current Visit: Yes Status: Acute Assessment and plan: POD 4: -Pt was taken to surgery / for CT findings, vein excision per Dr. López. -Surgery is following. -continue Dressing changes daily -Cultures obtained during surgery final results are negative. _ Anaerobic cultures prelim are also negative. -Abx have been d/c'd (7) Foreign body (FB) in soft tissue Current Visit: Yes Status: Acute Assessment and plan: -Surgery following. -Pt has no leukocytosis or fever. - Subjective Interval history: Patient reports some improvement in SOB. Discussed again with nursing about keeping patient on their home O2 dose of 3L as higher O2 sats are actually detrimental. Patient reports being eager for placement to be found for an ECF to allow him to leave the hospital. - Constitutional Vitals: Temp Pulse Resp BP Pulse Ox 98.0 F 77 16 145/88 100 02/27/17 08:37 08/10/17 08:37 02/27/17 08:09 02/27/17 08:37 02/27/17 08:37 General appearance: Present: cooperative, disheveled, mild distress, A&O X 3, pleasant, answers questions appropriately - Eye Eye exam: Present: PERRL - ENT ENT exam: Present: mucous membranes moist - Respiratory Respiratory exam: Present: wheezes - Cardiovascular Cardiovascular exam: Present: RRR, +S1, +S2. Absent: gallop, rubs, systolic murmur - GI/Abdominal GI/Abdominal exam: Present: normal bowel sounds, soft. Absent: tenderness - Extremities Exam Extremities exam: Absent: pedal edema Additional comments: Dressing on arm dry and intact, with some dried serrous drainage - Neurological Exam Neurological exam: Present: alert, oriented X3. Absent: speech deficit - Psychiatric Psychiatric exam: Present: anxious - Skin Skin exam: Present: dry, warm Internal Medicine: Result - Labs CBC & Chem 7: 02/26/17 04:05 02/27/17 06:53 Labs: BMP 02/27/17 06:53 Sodium 136 Potassium 4.2 Chloride 92 L Carbon Dioxide 38 H BUN 24 Creatinine 0.74 Glucose 236 H Calcium 8.4 L - ABG Interpretation ABG results: ABG ABG pH 7.25 pH Units (7.32-7.45) L 02/24/17 02:00 ABG pCO2 88 mmHg (35-45) H* 02/24/17 02:00 ABG pO2 65 mmHg (85-104) L 02/24/17 02:00 ABG O2 Saturation 89 % (95-98) L 02/24/17 02:00 - VTE Documentation of Mechanical Device: Intermittent pneumatic compression device Consult Discharge Plan - Plan [facility]errals: [facility] Care Provider[facility] - <Charles Blanco - Last Filed: 02/27/17 18:04> Date of Encounter: 02/27/17 - Assessment and plan (1) Acute on chronic respiratory failure with hypoxemia Current Visit: No Status: Acute (2) Acute exacerbation of chronic obstructive airways disease Current Visit: Yes Status: Acute (3) Superficial foreign body of left axilla without major open wound and without infection Current Visit: Yes Status: Acute Qualifiers: Encounter type: subsequent encounter Qualified Code(s): S40.852D - Superficial foreign body of left upper arm, subsequent encounter (4) IV drug abuse Current Visit: Yes Status: Chronic (5) Chronic hepatitis C Current Visit: No Status: Chronic Qualifiers: Hepatic coma status: without hepatic coma Qualified Code(s): B18.2 - Chronic viral hepatitis C (6) Tobacco abuse Current Visit: No Status: Chronic (7) Schizoaffective disorder, bipolar type Current Visit: No Status: Chronic - Constitutional Vitals: Temp Pulse Resp BP Pulse Ox 98.2 F 104 16 168/85 97 02/27/17 15:30 02/27/17 15:30 02/27/17 16:12 02/27/17 15:30 02/27/17 16:12 Internal Medicine: Result - Labs CBC & Chem 7: 02/26/17 04:05 02/27/17 06:53 Labs: BMP 02/27/17 06:53 Sodium 136 Potassium 4.2 Chloride 92 L Carbon Dioxide 38 H BUN 24 Creatinine 0.74 Glucose 236 H Calcium 8.4 L - ABG Interpretation ABG results: ABG ABG pH 7.25 pH Units (7.32-7.45) L 02/24/17 02:00 ABG pCO2 88 mmHg (35-45) H* 02/24/17 02:00 ABG pO2 65 mmHg (85-104) L 02/24/17 02:00 ABG O2 Saturation 89 % (95-98) L 02/24/17 02:00 - Attending Attestation I examined this patient and my medical decision-making was reviewed with the Resident Physician on 02/27/17. I agree with the documented findings, disposition and treatment plan as described except to the extent set forth below. Mr. Sosa is currently admitted for acute exac COPD and hypoxia. He remains moderate to high risk due to potential for worsening respiratory symptoms Mr. Sosa overall is a little better. He is still quite dyspneic at baseline and worse with oxygen off. Has been recommended for SNF and trying to place him. No fever or chills. No GI issues. Exam Alert. Mild distress at rest. Mucus membranes dry Heart reg Lungs with end exp wheeze Abd soft No edema I/P 1. Hypoxia 2. Exac COPD D/C planning Further diagnoses and plan as above.
[2017-02-27] MEDS: ARIPiprazole 10 MG TABLET PO SCH (08:59)
[2017-02-27] MEDS: hydrOXYzine pamoate 25 MG CAPSULE PO SCH ×3 (08:59→20:19)
[2017-02-27] MEDS: Azithromycin 250 MG TABLET PO SCH (08:59)
[2017-02-27] MEDS: *HR* LORazepam 2 MG/ML VIAL IVP PRN ×3 (09:00→18:32)
[2017-02-27] MEDS: Insulin LISPRO 300 UNITS/3 ML VIAL SQ SCH ×4 (09:02→20:22)
[2017-02-27] MEDS: Ipratropium/Albuterol Neb 3 ML IH SCH ×4 (11:06→23:32)
[2017-02-27] MEDS: Melatonin 3 MG TABLET PO SCH (20:19)
[2017-02-27] MEDS: (Naltrexone Hcl [Revia] 50 MG) PO SCH (20:22)
[2017-02-28] MEDS: MethylPREDNISolone 40 MG/ML VIAL IVP SCH ×3 (00:21→18:24)
[2017-02-28] MEDS: *HR* LORazepam 2 MG/ML VIAL IVP PRN ×2 (01:22→08:38)
[2017-02-28] MEDS: 0.9 % Sodium Chloride 1,000 ML IVC SCH (03:58)
[2017-02-28] MEDS: Ipratropium/Albuterol Neb 3 ML IH SCH ×6 (04:33→23:26)
[2017-02-28] MEDS: *HR* Heparin 5,000 UNIT/ML VIAL SQ SCH ×2 (05:32→18:25)
[2017-02-28 07:58] LABS: Hematocrit 30.8 % (37.5-50.1); Hemoglobin 10.2 g/dL (12.9-16.9); Immature Platelets 2.4 % (1.1-6.1); Mean Corpuscular HGB Conc 33.1 g/dL (31.6-35.5); Mean Corpuscular Hemoglobin 30.3 pg (28.0-33.3); Mean Corpuscular Volume 91.4 fL (83.0-100.0); Mean Platelet Volume 9.6 fL (9.4-12.4); Red Blood Count 3.37 M/mcL (4.19-5.50); Red Cell Distribution Width 13.2 % (11.5-14.5)
[2017-02-28 08:12] LABS: BUN/Creatinine Ratio 39 (6-26); Calcium 8.4 mg/dL (8.6-10.8); Carbon Dioxide 39 mEq/L (19-29); Chloride 93 mEq/L (98-109); Glucose 277 mg/dL (70-99); Osmolality,Calculated 300 (280-300); Potassium 4.4 mEq/L (3.5-4.5); Sodium 137 mEq/L (136-145); eGFR For African Americans > 60 (> 60); eGFR For Non-African Americans > 60 (> 60)
[2017-02-28 08:19] LABS: Blood Urea Nitrogen 30 mg/dL (8-26)
[2017-02-28] MEDS: Famotidine 20 MG TABLET PO SCH ×2 (08:28→21:31)
[2017-02-28] MEDS: Nicotine 14 MG PATCH.TD24 TD SCH (08:28)
[2017-02-28] MEDS: ARIPiprazole 10 MG TABLET PO SCH (08:28)
[2017-02-28] MEDS: Lactobacillus 1 EACH CAP.SPRINK PO SCH (08:29)
[2017-02-28] MEDS: hydrOXYzine pamoate 25 MG CAPSULE PO SCH ×3 (08:29→21:31)
[2017-02-28] MEDS: Insulin LISPRO 300 UNITS/3 ML VIAL SQ SCH ×4 (08:29→21:32)
[2017-02-28] MEDS: Loratadine 10 MG TABLET PO SCH (08:29)
[2017-02-28] MEDS: Aspirin Enteric Coated 81 MG Tablet PO SCH (08:29)
[2017-02-28] MEDS: Baclofen 10 MG TABLET PO SCH ×3 (08:29→21:31)
--- NOTE | 2017-02-28 09:14 | Internal Med Progress Note ---
<Rudy Champagne - Last Filed: 02/28/17 11:44> Date of Encounter: 02/28/17 Time of Encounter: 08:40 - Assessment and plan (1) Acute exacerbation of chronic obstructive airways disease Current Visit: Yes Status: Acute Assessment and plan: End expiratory heezing heard throughout, but improved today -Pt currently 98% on 2L. - Maintain 02, titrate as needed to maintain sats between 88 and 92% -instructed nursing he does not need to be in the high 90s and that it is detrimental for him to be so high. Jesus has titrated him down to 2L which is lower than his reported home dose of 3L yet patient still satting in the high 90s. -Continue scheduled and prn nebulizer treatments -Continue IV steroids -Continue IV Zithromax -Consider d/c abx switch to PO steroids -Respiratory status clearly worsened by anxiety. continue prn ativan to decrease agitation. (2) Acute respiratory failure with hypoxia Current Visit: No Status: Acute Assessment and plan: Continue current regimen described above (3) Anxiety Current Visit: Yes Status: Chronic Assessment and plan: Patient's respiratory issues are largely affected by his anxiety. His breathing and oxygenation improve with ativan. continue PRN ativan. (4) Bipolar disease, chronic Current Visit: Yes Status: Chronic Assessment and plan: Chronic. continue home Abilify. (5) IV drug abuse Current Visit: Yes Status: Chronic Assessment and plan: -Pt admits to IV cocaine use which he routinely injects into left AC. -causing patient to be difficult to place. (6) Superficial venous thrombosis of left arm Current Visit: Yes Status: Acute Assessment and plan: POD 5: -Pt was taken to surgery 02/[address] findings, vein excision per Dr. López. -Surgery is following. -continue Dressing changes daily -Cultures obtained during surgery final results are negative. _ Anaerobic cultures prelim are also negative. -Abx have been d/c'd (7) Foreign body (FB) in soft tissue Current Visit: Yes Status: Acute Assessment and plan: -Surgery following. -Pt has no leukocytosis or fever. - not complaining of pain. - Subjective Interval history: Patient was out of breath today on exam as the patient was using the bathroom then walked to open the door. Patient has been titrated down to 2 L NC and is still satting at 98-100% despite his continued complaints of SOB and wheezing. Social work is having a hard time placing the patient due to his IVDA and past legal troubles. Patient states he cannot take care of himself at home. - Constitutional Vitals: Temp Pulse Resp BP Pulse Ox 98.0 F 77 16 129/63 99 02/28/17 08:08 02/28/17 08:08 02/28/17 08:36 02/28/17 08:08 02/28/17 08:36 General appearance: Present: cooperative, disheveled, mild distress, A&O X 3, pleasant, answers questions appropriately - Eye Eye exam: Present: PERRL - ENT ENT exam: Present: mucous membranes dry - Respiratory Respiratory exam: Present: wheezes - Cardiovascular Cardiovascular exam: Present: RRR, +S1, +S2. Absent: gallop, rubs, systolic murmur - GI/Abdominal GI/Abdominal exam: Present: normal bowel sounds, soft. Absent: tenderness - Extremities Exam Extremities exam: Absent: pedal edema - Neurological Exam Neurological exam: Present: alert, oriented X3. Absent: speech deficit - Psychiatric Psychiatric exam: Present: anxious Internal Medicine: Result - Labs CBC & Chem 7: 02/28/17 06:40 02/28/17 06:40 Labs: Short CBC 02/28/17 Range/Units 06:40 WBC 7.9 (4.3-11.1) K/mcL Hgb 10.2 L (12.9-16.9) g/dL Hct 30.8 L (37.5-50.1) % Plt Count 153 (140-400) K/mcL BMP 02/28/17 06:40 Sodium 137 Potassium 4.4 Chloride 93 L Carbon Dioxide 39 H BUN 30 H Creatinine 0.77 Glucose 277 H Calcium 8.4 L - ABG Interpretation ABG results: ABG ABG pH 7.25 pH Units (7.32-7.45) L 02/24/17 02:00 ABG pCO2 88 mmHg (35-45) H* 02/24/17 02:00 ABG pO2 65 mmHg (85-104) L 02/24/17 02:00 ABG O2 Saturation 89 % (95-98) L 02/24/17 02:00 - VTE Documentation of Mechanical Device: Intermittent pneumatic compression device Consult Discharge Plan - Plan [facility]errals: [facility] [Primary Care Provider] - <Charles Blanco Nina - Last Filed: 02/28/17 18:44> Date of Encounter: 02/28/17 - Assessment and plan (1) Acute on chronic respiratory failure with hypoxemia Current Visit: No Status: Acute (2) Acute exacerbation of chronic obstructive airways disease Current Visit: Yes Status: Acute (3) Superficial foreign body of left axilla without major open wound and without infection Current Visit: Yes Status: Acute Qualifiers: Encounter type: subsequent encounter Qualified Code(s): S40.852D - Superficial foreign body of left upper arm, subsequent encounter (4) IV drug abuse Current Visit: Yes Status: Chronic (5) Chronic hepatitis C Current Visit: No Status: Chronic Qualifiers: Hepatic coma status: without hepatic coma Qualified Code(s): B18.2 - Chronic viral hepatitis C (6) Tobacco abuse Current Visit: No Status: Chronic (7) Schizoaffective disorder, bipolar type Current Visit: No Status: Chronic - Constitutional Vitals: Temp Pulse Resp BP Pulse Ox 98.0 F 103 16 168/87 99 02/28/17 16:31 02/28/17 16:31 02/28/17 16:54 02/28/17 16:31 02/28/17 16:54 Internal Medicine: Result - Labs CBC & Chem 7: 02/28/17 06:40 02/28/17 06:40 Labs: Short CBC 02/28/17 Range/Units 06:40 WBC 7.9 (4.3-11.1) K/mcL Hgb 10.2 L (12.9-16.9) g/dL Hct 30.8 L (37.5-50.1) % Plt Count 153 (140-400) K/mcL BMP 02/28/17 06:40 Sodium 137 Potassium 4.4 Chloride 93 L Carbon Dioxide 39 H BUN 30 H Creatinine 0.77 Glucose 277 H Calcium 8.4 L - ABG Interpretation ABG results: ABG ABG pH 7.25 pH Units (7.32-7.45) L 02/24/17 02:00 ABG pCO2 88 mmHg (35-45) H* 02/24/17 02:00 ABG pO2 65 mmHg (85-104) L 02/24/17 02:00 ABG O2 Saturation 89 % (95-98) L 02/24/17 02:00 - Attending Attestation I examined this patient and my medical decision-making was reviewed with the Resident Physician on 02/28/17. I agree with the documented findings, disposition and treatment plan as described except to the extent set forth below. Mr. Sosa is currently admitted for acute exac COPD. He remains high risk due to potential for worsening respiratory issues. Mr. Sosa is still quite dyspneic when oxygen off but slightly better overall. No fever or chills. No GI issues. Working on d/c planning. Exam Alert. Comfortable at rest Mucus membranes dry Heart reg Diffuse wheeze noted Abd soft No edema I/P 1. COPD exac 2. Hypoxia Further diagnoses and plan as above.
[2017-02-28] MEDS: Melatonin 3 MG TABLET PO SCH (21:31)
[2017-02-28] MEDS: (Naltrexone Hcl [Revia] 50 MG) PO SCH (21:32)
[2017-03-01] MEDS: Ipratropium/Albuterol Neb 3 ML IH SCH ×5 (03:58→20:21)
[2017-03-01 05:59] LABS: Hematocrit 31.7 % (37.5-50.1); Hemoglobin 10.3 g/dL (12.9-16.9); Mean Corpuscular HGB Conc 32.5 g/dL (31.6-35.5); Mean Corpuscular Volume 92.4 fL (83.0-100.0); Mean Platelet Volume 9.5 fL (9.4-12.4); Platelet Count 141 K/mcL (140-400); Red Blood Count 3.43 M/mcL (4.19-5.50); Red Cell Distribution Width 13.4 % (11.5-14.5)
[2017-03-01] MEDS: *HR* Heparin 5,000 UNIT/ML VIAL SQ SCH ×2 (06:16→17:07)
[2017-03-01 06:17] LABS: BUN/Creatinine Ratio 36 (6-26); Blood Urea Nitrogen 29 mg/dL (8-26); Calcium 8.4 mg/dL (8.6-10.8); Chloride 93 mEq/L (98-109); Glucose 266 mg/dL (70-99); Osmolality,Calculated 305 (280-300); Potassium 4.4 mEq/L (3.5-4.5); Sodium 140 mEq/L (136-145); eGFR For African Americans > 60 (> 60); eGFR For Non-African Americans > 60 (> 60)
[2017-03-01 06:20] LABS: Carbon Dioxide 41 mEq/L (19-29)
[2017-03-01] MEDS: Lactobacillus 1 EACH CAP.SPRINK PO SCH (08:19)
[2017-03-01] MEDS: Famotidine 20 MG TABLET PO SCH ×2 (08:19→21:48)
[2017-03-01] MEDS: ARIPiprazole 10 MG TABLET PO SCH (08:19)
[2017-03-01] MEDS: Loratadine 10 MG TABLET PO SCH (08:19)
[2017-03-01] MEDS: Aspirin Enteric Coated 81 MG Tablet PO SCH (08:20)
[2017-03-01] MEDS: predniSONE 20 MG TABLET PO SCH ×2 (08:20→17:06)
[2017-03-01] MEDS: hydrOXYzine pamoate 25 MG CAPSULE PO SCH ×3 (08:20→21:47)
[2017-03-01] MEDS: Nicotine 14 MG PATCH.TD24 TD SCH (08:21)
[2017-03-01] MEDS: Baclofen 10 MG TABLET PO SCH ×3 (08:21→21:48)
[2017-03-01] MEDS: Insulin LISPRO 300 UNITS/3 ML VIAL SQ SCH ×4 (08:22→21:47)
[2017-03-01] MEDS: *HR* LORazepam 2 MG/ML VIAL IM PRN ×3 (08:52→21:58)
--- NOTE | 2017-03-01 11:52 | General Surgery Progress Note ---
Date of Encounter: 03/01/17 Time of Encounter: 12:10 Subjective Narrative: General Surgery - POD #5 THIS NOTE WAS PLACED ON THE WRONG PATIENT YESTERDAY Narrative: General Surgery - POD #5 patient resting comfortably in bed. C/o that dressing was wet, "so I removed it" The wound is clean; it had been redressed by Nursing, after patient removed the dressing. The current dressing was removed and replaced with dry gauze dressing followed by Kerlix wrap. The patient's behavior and non compliance with efforts to care for him is problematic and poses significant risk of infection as well as other complications. Objective Vital Signs - Last 8 Hours Temp Pulse Resp BP Pulse Ox 03/01/17 08:11 98.7 F 85 18 134/80 99 03/01/17 07:47 16 99 03/01/17 04:18 97.9 F 93 19 152/88 96 03/01/17 03:58 18 96 Intake and Output 02/28/17 03/01/17 03/01/17 23:59 07:59 15:59 Intake Total 360 / 360 Output Total 300 / 300 Balance 60 / 60 Intake: Oral 360 / 360 Output: Urine 300 / 300 Other: Meal Dinner Percent of Meal Consumed 100% Blood Glucose* 276 239 - Labs 03/01/17 04:47 03/01/17 04:47 Diabetes panel 03/01/17 Range/Units 04:47 Sodium 140 (136-145) mEq/L Potassium 4.4 (3.5-4.5) mEq/L Chloride 93 L (98-109) mEq/L Carbon Dioxide 41 H* (19-29) mEq/L BUN 29 H (8-26) mg/dL Creatinine 0.80 (0.72-1.25) mg/dL Glucose 266 H (70-99) mg/dL Calcium 8.4 L (8.6-10.8) mg/dL Calcium panel 03/01/17 Range/Units 04:47 Calcium 8.4 L (8.6-10.8) mg/dL Pituitary panel 03/01/17 Range/Units 04:47 Sodium 140 (136-145) mEq/L Potassium 4.4 (3.5-4.5) mEq/L Chloride 93 L (98-109) mEq/L Carbon Dioxide 41 H* (19-29) mEq/L BUN 29 H (8-26) mg/dL Creatinine 0.80 (0.72-1.25) mg/dL Glucose 266 H (70-99) mg/dL Calcium 8.4 L (8.6-10.8) mg/dL Adrenal panel 03/01/17 Range/Units 04:47 Sodium 140 (136-145) mEq/L Potassium 4.4 (3.5-4.5) mEq/L Chloride 93 L (98-109) mEq/L Carbon Dioxide 41 H* (19-29) mEq/L BUN 29 H (8-26) mg/dL Creatinine 0.80 (0.72-1.25) mg/dL Glucose 266 H (70-99) mg/dL Calcium 8.4 L (8.6-10.8) mg/dL - VTE Documentation of Mechanical Device: Intermittent pneumatic compression device Consult Discharge Plan - Plan [facility]errals: [facility] [Primary Care Provider] -
--- NOTE | 2017-03-01 13:00 | Internal Med Progress Note ---
<Hakeem Dow - Last Filed: 03/01/17 16:14> Date of Encounter: 03/01/17 Time of Encounter: 12:57 - Assessment and plan (1) Acute exacerbation of chronic obstructive airways disease Current Visit: Yes Status: Acute Assessment and plan: End expiratory wheezing heard throughout Pt currently 95% on 2L. Maintain 02, titrate as needed to maintain sats between 88 and 92% Discussed with nursing he does not need to be in the high 90s and that it is detrimental for him to be so high. His CO2 continues to rise on BMP (41). Continue scheduled and prn nebulizer treatments Continue PO prednisone. No longer on antibiotics. Respiratory status clearly worsened by anxiety. Continue prn ativan to decrease agitation. (2) Acute respiratory failure with hypoxia Current Visit: No Status: Acute Assessment and plan: Continue current regimen described above (3) Anxiety Current Visit: Yes Status: Chronic Assessment and plan: Patient's respiratory issues are largely affected by his anxiety. His breathing and oxygenation improve with ativan. continue PRN ativan. (4) Bipolar disease, chronic Current Visit: Yes Status: Chronic Assessment and plan: Chronic. continue home Abilify. (5) IV drug abuse Current Visit: Yes Status: Chronic Assessment and plan: Pt admits to IV cocaine use which he routinely injects into left AC. Causing difficulty for placement upon d/c (6) Superficial venous thrombosis of left arm Current Visit: Yes Status: Acute Assessment and plan: POD 6: Pt was taken to surgery / for CT findings, vein excision per Dr. López. Surgery is following. Continue Dressing changes daily Cultures obtained during surgery final results are negative. Final anaerobic cultures negative (7) Foreign body (FB) in soft tissue Current Visit: Yes Status: Acute Assessment and plan: Surgery following. Pt has no leukocytosis or fever. Not complaining of pain. - Subjective Interval history: Patient seen and examined. Reports continued dyspnea on exertion, some intermittent nausea, and feeling tired, but he states this is nothing new for him. Denies chest pain, abdominal pain, diarrhea, dysuria, or leg pain/edema. - Constitutional Vitals: Temp Pulse Resp BP Pulse Ox 98.2 F 73 16 133/85 95 03/01/17 12:11 03/01/17 12:11 03/01/17 12:11 03/01/17 12:11 03/01/17 12:11 General appearance: Present: cooperative, disheveled, mild distress, A&O X 3, pleasant, answers questions appropriately - Head Head exam: Present: atraumatic, normocephalic - Eye Eye exam: Present: sclera anicteric - ENT ENT exam: Present: mucous membranes moist - Respiratory Respiratory exam: Present: CTAB, wheezes. Absent: rales, respiratory distress, rhonchi - Cardiovascular Cardiovascular exam: Present: RRR, +S1, +S2. Absent: diastolic murmur, systolic murmur - GI/Abdominal GI/Abdominal exam: Present: normal bowel sounds, soft. Absent: distended, rigid , tenderness - Extremities Exam Extremities exam: Present: pedal edema, warm. Absent: tenderness - Neurological Exam Neurological exam: Present: alert, CN II-XII intact, no focal deficits Internal Medicine: Result - Labs CBC & Chem 7: 03/01/17 04:47 03/01/17 04:47 Labs: Short CBC 03/01/17 Range/Units 04:47 WBC 9.0 (4.3-11.1) K/mcL Hgb 10.3 L (12.9-16.9) g/dL Hct 31.7 L (37.5-50.1) % Plt Count 141 (140-400) K/mcL BMP 03/01/17 04:47 Sodium 140 Potassium 4.4 Chloride 93 L Carbon Dioxide 41 H* BUN 29 H Creatinine 0.80 Glucose 266 H Calcium 8.4 L - ABG Interpretation ABG results: ABG ABG pH 7.25 pH Units (7.32-7.45) L 02/24/17 02:00 ABG pCO2 88 mmHg (35-45) H* 02/24/17 02:00 ABG pO2 65 mmHg (85-104) L 02/24/17 02:00 ABG O2 Saturation 89 % (95-98) L 02/24/17 02:00 - VTE Documentation of Mechanical Device: Intermittent pneumatic compression device Consult Discharge Plan - Plan Referrals: [facility] [Primary Care Provider] - <Charles Blanco - Last Filed: 03/01/17 20:54> Date of Encounter: 03/01/17 - Assessment and plan (1) Acute on chronic respiratory failure with hypoxemia Current Visit: No Status: Acute (2) Acute exacerbation of chronic obstructive airways disease Current Visit: Yes Status: Acute (3) Superficial foreign body of left axilla without major open wound and without infection Current Visit: Yes Status: Acute Qualifiers: Encounter type: subsequent encounter Qualified Code(s): S40.852D - Superficial foreign body of left upper arm, subsequent encounter (4) IV drug abuse Current Visit: Yes Status: Chronic (5) Chronic hepatitis C Current Visit: No Status: Chronic Qualifiers: Hepatic coma status: without hepatic coma Qualified Code(s): B18.2 - Chronic viral hepatitis C (6) Tobacco abuse Current Visit: No Status: Chronic (7) Schizoaffective disorder, bipolar type Current Visit: No Status: Chronic - Constitutional Vitals: Temp Pulse Resp BP Pulse Ox 98.5 F 96 18 149/79 99 03/01/17 18:43 03/01/17 18:43 03/01/17 20:21 03/01/17 18:43 03/01/17 20:21 Internal Medicine: Result - Labs CBC & Chem 7: 03/01/17 04:47 03/01/17 04:47 Labs: Short CBC 03/01/17 Range/Units 04:47 WBC 9.0 (4.3-11.1) K/mcL Hgb 10.3 L (12.9-16.9) g/dL Hct 31.7 L (37.5-50.1) % Plt Count 141 (140-400) K/mcL BMP 03/01/17 04:47 Sodium 140 Potassium 4.4 Chloride 93 L Carbon Dioxide 41 H* BUN 29 H Creatinine 0.80 Glucose 266 H Calcium 8.4 L - ABG Interpretation ABG results: ABG ABG pH 7.25 pH Units (7.32-7.45) L 02/24/17 02:00 ABG pCO2 88 mmHg (35-45) H* 02/24/17 02:00 ABG pO2 65 mmHg (85-104) L 02/24/17 02:00 ABG O2 Saturation 89 % (95-98) L 02/24/17 02:00 - Attending Attestation I examined this patient and my medical decision-making was reviewed with the Resident Physician on 03/01/17. I agree with the documented findings, disposition and treatment plan as described except to the extent set forth below. Mr. Sosa is currently admitted for acute exac COPD. He remains moderate risk due to potential for worsening respiratory status. Mr. Sosa is currently resting comfortably. He still gets hypoxic at times with movement. No fever or chills. No pain at this time. Waiting for SNF placement. Exam alert. Comfortable Mucus membranes moist Heart reg Lungs diminished. Abd soft I/P 1. Hypoxia 2. Exac COPD Further diagnoses and plan as above.
[2017-03-01] MEDS: Melatonin 3 MG TABLET PO SCH (21:48)
[2017-03-01] MEDS: (Naltrexone Hcl [Revia] 50 MG) PO SCH (21:48)
[2017-03-02] MEDS: Ipratropium/Albuterol Neb 3 ML IH SCH ×7 (00:53→23:17)
[2017-03-02] MEDS: *HR* Heparin 5,000 UNIT/ML VIAL SQ SCH ×2 (05:59→19:33)
[2017-03-02] MEDS: *HR* LORazepam 2 MG/ML VIAL IM PRN (06:05)
[2017-03-02] MEDS: Insulin LISPRO 300 UNITS/3 ML VIAL SQ SCH ×4 (09:21→20:49)
[2017-03-02] MEDS: Famotidine 20 MG TABLET PO SCH ×2 (09:21→20:49)
[2017-03-02] MEDS: hydrOXYzine pamoate 25 MG CAPSULE PO SCH ×3 (09:21→20:48)
[2017-03-02] MEDS: Lactobacillus 1 EACH CAP.SPRINK PO SCH (09:21)
[2017-03-02] MEDS: Baclofen 10 MG TABLET PO SCH ×3 (09:22→20:48)
[2017-03-02] MEDS: Aspirin Enteric Coated 81 MG Tablet PO SCH (09:22)
[2017-03-02] MEDS: Nicotine 14 MG PATCH.TD24 TD SCH (09:22)
[2017-03-02] MEDS: predniSONE 20 MG TABLET PO SCH (09:22)
[2017-03-02] MEDS: ARIPiprazole 10 MG TABLET PO SCH (09:22)
[2017-03-02] MEDS: Loratadine 10 MG TABLET PO SCH (09:22)
--- NOTE | 2017-03-02 11:34 | General Surgery Progress Note ---
Date of Encounter: 03/02/17 Time of Encounter: 11:31 Subjective Narrative: General Surgery - Patient resting comfortably in his hospital bed; he is on oxygen and BiPAP. The dressing on the left arm was removed - the dressing is wet; Nursing reports copious drainage. The wound is otherwise, clean. No purulence. The dressing was replaced - sterile 4 x 4 gauze covered with ABD, wrapped with Kerlix. Coban used to hold the dressing in place. Objective Vital Signs - Last 8 Hours Temp Pulse Resp BP Pulse Ox 03/02/17 08:14 20 100 03/02/17 08:04 98 F 78 16 141/89 100 03/02/17 06:05 19 136/76 96 03/02/17 04:15 14 96 Intake and Output 03/01/17 03/02/17 03/02/17 23:59 07:59 15:59 Other: Weight 77.383 kg Blood Glucose* 192 177 Patient Weight 03/02/17 23:59 Weight 77.383 kg - Labs 03/01/17 04:47 03/01/17 04:47 - VTE Documentation of Mechanical Device: Intermittent pneumatic compression device Consult Discharge Plan - Plan Referrals: [facility] [Primary Care Provider] -
--- NOTE | 2017-03-02 13:33 | Internal Med Progress Note ---
Date of Encounter: 03/02/17 Time of Encounter: 11:20 - Assessment and plan (1) Acute on chronic respiratory failure with hypoxemia Current Visit: Yes Status: Acute Assessment and plan: Overall seems to be desaturating less. Continues oxygen and bipap. (2) Acute exacerbation of chronic obstructive airways disease Current Visit: Yes Status: Acute Assessment and plan: Maintain oxygen saturation 88-92%. Taper steroids as able. (3) Superficial foreign body of left axilla without major open wound and without infection Current Visit: Yes Status: Acute Assessment and plan: Per surgery. Local wound care. Qualifiers: Encounter type: subsequent encounter Qualified Code(s): S40.852D - Superficial foreign body of left upper arm, subsequent encounter (4) IV drug abuse Current Visit: Yes Status: Chronic Assessment and plan: Pt admits to IV cocaine use which he routinely injects into left AC. Causing difficulty for placement upon d/c (5) Chronic hepatitis C Current Visit: No Status: Chronic Assessment and plan: Chronic issue Qualifiers: Hepatic coma status: without hepatic coma Qualified Code(s): B18.2 - Chronic viral hepatitis C (6) Tobacco abuse Current Visit: No Status: Chronic Assessment and plan: Patient states that he would like to quit smoking, continue discussing prior to discharge. (7) Schizoaffective disorder, bipolar type Current Visit: No Status: Chronic Assessment and plan: Chronic issue. - Subjective Interval history: Mr. Stewart is currently admitted for acute exac COPD and upper extremity wound s /p I&D. He remains moderate to high risk due to potential for worsening respiratory status. Mr Stewart is resting in bed. He has bipap on at this time. No fever or chills. Appears to desaturate less when moves. Some drainage from arm - managed by surgery. No new issues at this time. - Constitutional Vitals: Temp Pulse Resp BP Pulse Ox 97.9 F 88 16 155/82 100 03/02/17 11:32 03/02/17 11:32 03/02/17 11:33 03/02/17 11:32 03/02/17 11:33 General appearance: Present: cooperative, A&O X 3, pleasant, answers questions appropriately - Head Head exam: Present: normocephalic - Eye Eye exam: Present: conjuntiva pink - ENT ENT exam: Present: mucous membranes dry - Respiratory Respiratory exam: Present: decreased breath sounds, wheezes. Absent: rales, rhonchi - Cardiovascular Cardiovascular exam: Present: RRR. Absent: tachycardia - GI/Abdominal GI/Abdominal exam: Present: soft. Absent: tenderness - Extremities Exam Extremities exam: Present: pedal edema, warm. Absent: tenderness - Neurological Exam Neurological exam: Present: alert, oriented X3 - Skin Additional comments: Many ecchymoses. Dressing on L forearm Internal Medicine: Result - Labs CBC & Chem 7: 03/01/17 04:47 03/01/17 04:47 - ABG Interpretation ABG results: ABG ABG pH 7.25 pH Units (7.32-7.45) L 02/24/17 02:00 ABG pCO2 88 mmHg (35-45) H* 02/24/17 02:00 ABG pO2 65 mmHg (85-104) L 02/24/17 02:00 ABG O2 Saturation 89 % (95-98) L 02/24/17 02:00 - VTE Documentation of Mechanical Device: Intermittent pneumatic compression device Consult Discharge Plan - Plan [facility]errals: [facility] [Primary Care Provider] -
[2017-03-02] MEDS ORDERED: *HR* LORazepam 2 MG/ML VIAL IM PRN (14:54)
[2017-03-02] MEDS: Melatonin 3 MG TABLET PO SCH (20:48)
[2017-03-02] MEDS: Insulin DETEMIR 100 UNIT/ML X5UNITS SQ SCH (20:49)
[2017-03-02] MEDS: (Naltrexone Hcl [Revia] 50 MG) PO SCH (20:50)
[2017-03-03] MEDS: *HR* LORazepam 1 MG TABLET PO PRN ×4 (02:55→22:11)
[2017-03-03] MEDS: Ipratropium/Albuterol Neb 3 ML IH SCH ×5 (04:10→20:19)
[2017-03-03] MEDS: *HR* Heparin 5,000 UNIT/ML VIAL SQ SCH ×2 (05:15→17:22)
[2017-03-03] MEDS: Insulin LISPRO 300 UNITS/3 ML VIAL SQ SCH ×4 (08:58→21:59)
[2017-03-03] MEDS: predniSONE 20 MG TABLET PO SCH ×2 (09:06→15:45)
[2017-03-03] MEDS: hydrOXYzine pamoate 25 MG CAPSULE PO SCH ×3 (09:07→21:58)
[2017-03-03] MEDS: Lactobacillus 1 EACH CAP.SPRINK PO SCH (09:08)
[2017-03-03] MEDS: Loratadine 10 MG TABLET PO SCH (09:08)
[2017-03-03] MEDS: Famotidine 20 MG TABLET PO SCH ×2 (09:08→21:59)
[2017-03-03] MEDS: Aspirin Enteric Coated 81 MG Tablet PO SCH (09:08)
[2017-03-03] MEDS: ARIPiprazole 10 MG TABLET PO SCH (09:08)
[2017-03-03] MEDS: Baclofen 10 MG TABLET PO SCH ×3 (09:09→22:00)
[2017-03-03] MEDS: Nicotine 14 MG PATCH.TD24 TD SCH (09:09)
--- NOTE | 2017-03-03 10:05 | Discharge Summary ---
Date of Encounter: 03/03/17 Time of Encounter: 09:00 - Discharge Diagnosis (1) Acute exacerbation of chronic obstructive airways disease Priority: Primary Status: Acute (2) Acute respiratory failure with hypoxia Priority: Primary Status: Acute (3) Anxiety Priority: Secondary Status: Chronic (4) Bipolar disease, chronic Priority: Secondary Status: Chronic (5) IV drug abuse Priority: Secondary Status: Chronic (6) Superficial venous thrombosis of left arm Priority: Secondary Status: Acute (7) Foreign body (FB) in soft tissue Priority: Secondary Status: Acute - Discharge Medications Home Medications: Aspirin [Lo-Dose Aspirin EC] 81 mg PO DAILY 07/06/16 [History] Baclofen [Lioresal] 10 mg PO TID 07/06/16 [History] Dicyclomine [Bentyl] 20 mg PO QID PRN 07/06/16 [History] Docusate [Colace] 200 mg PO BID PRN 07/06/16 [History] Lactobacillus Acidophilus [Acidophilus] 1 cap PO DAILY 07/06/16 [History] Melatonin [Melatin] 9 mg PO HS 07/06/16 [History] Ranitidine HCl [Acid Computer Customer Support Specialist] 150 mg PO BID 07/06/16 [History] hydrOXYzine HCl [Hydroxyzine HCl] 100 mg PO TID 07/06/16 [History] Loratadine [Allergy Relief] 10 mg PO DAILY 09/22/16 [History] Propranolol [Inderal] 10 mg PO BID 11/22/16 [History] ARIPiprazole [Abilify] 10 mg PO DAILY 01/21/17 [History] Acetaminophen [Tylenol] 650 mg PO Q6HR PRN 01/21/17 [History] Albuterol Neb [Proventil Neb] 2.5 mg IH QID PRN 01/21/17 [History] Albuterol Sulfate [Albuterol Inhaler] 2 puff IH Q4H PRN 01/21/17 [History] Budesonide/Formoterol 160/4.5 [Symbicort 160/4.5] 2 puff IH BIDR 01/21/17 [ History] Etodolac [Lodine] 400 mg PO BIDWM 01/21/17 [History] Naloxone HCl [Narcan] 4 mg NS AD PRN 01/21/17 [History] Naltrexone HCl [Revia] 50 mg PO HS 01/21/17 [History] Oxybutynin [Ditropan] 5 mg PO TID 01/21/17 [History] Sildenafil Citrate [Viagra] 50 mg PO AD PRN 01/21/17 [History] Tiotropium [Spiriva] 18 mcg IH DAILY 01/21/17 [History] Nicotine Patch [Nicoderm] 14 mg TD DAILY #28 patch 02/07/17 [Rx] predniSONE [PredniSONE] See Taper PO DAILY #30 tablet 02/07/17 [Rx] Allergies/Adverse Reactions: Allergies haloperidol [From Haldol] Adverse Reaction (Verified 01/21/17 03:41) Muscle Pain [place] Adverse Reaction (Verified 01/21/17 03:41) Weakness Procedures/tests Complete & Pending: CXR: "FINDINGS: The lungs are clear. The costophrenic angles are sharp. The cardiomediastinal silhouette is within normal limits. There is no discernible pneumothorax. XR/XR chest 1V IMPRESSION: Negative portable chest." CT LUE: "FINDINGS: Bones: No acute osseous abnormality of the left upper extremity and other visualized osseous structures of the left hemithorax. No suspicious osseous lesion to suggest osteomyelitis. Soft Tissue: In the left antecubital fossa, multiple foci of gas are identified (series 9, images 139 through 154) with adjacent inflammatory stranding. A drainable fluid collection is not appreciated. Evaluation for venous thrombosis is limited given the lack of IV contrast. A punctate radiodense foreign body is seen along the radial aspect of the distal forearm, measuring 2 mm (series 5, image 236). Mild subcutaneous edema of the left upper extremity is seen. Joint: No significant degenerative changes of the left shoulder or left elbow. Other: Emphysematous changes are identified in the left hemithorax. No focal consolidations. CT/CT UE LT wo con IMPRESSION: 1. Multiple foci of gas in the antecubital fossa with adjacent inflammatory stranding. No drainable abscess. 2. Unable to evaluate for venous thrombosis without IV contrast. 3. Punctate radiodense foreign body along the radial aspect of the distal forearm of unclear etiology. 4. Emphysema." Date of admission: 02/24/17 15:27 [facility]: [facility] Consults: 02/24/17 19:29 Consult to Vascular Surgery [CONS] Routine Consulting Provider: Vascular Surgery Krist[facility] Reason for Consult: Basilic vein SVT Time Notified: 19:30 Call Completed: Yes 02/24/17 19:30 Consult to Pulmonology [CONS] Routine Consulting Provider: Pulm [facility] [place] Reason for Consult: COPD, bronchitis, respiratory failure/hypoxia. Call Completed: No 02/25/17 12:09 Consult to Apprentice Stylist [CONS] Routine Reason for SW Consult: discharge planning 02/25/17 15:06 Consult to Occupational Therapy [CONS] Routine Comment: Evaluate, develop and implement POC Reason for Consult: Evaluation Consult to Physical Therapy [CONS] Routine Comment: Evaluate, develop and implement POC Reason for Consult: Evaluation Discharging clinician: Rudy Champagne Anticipated date of discharge: 03/03/17 - Patient Status Condition: Fair - Discharge Instructions Follow Up With: [facility] [Primary Care Provider] - Interval History: Patient reports improvement in his breathing. Patient reports some soreness of LUE. Patient denies N,V, F, chills, pain. Hospital course: Mr. Sosa is a 61 year old male - Time Spent with Patient Total time spent providing and/or coordinating discharge services: - Constitutional Vitals: Temp Pulse Resp BP Pulse Ox 98.1 F 87 16 124/82 100 03/03/17 07:52 03/03/17 07:52 03/03/17 07:52 03/03/17 07:52 03/03/17 07:52 General appearance: Present: cooperative, A&O X 3, pleasant, answers questions appropriately - Eye Eye exam: Present: PERRL - ENT ENT exam: Present: mucous membranes moist - Respiratory Respiratory exam: Present: decreased breath sounds, CTAB. Absent: rales, rhonchi, wheezes - Cardiovascular Cardiovascular exam: Present: RRR, +S1, +S2 - GI/Abdominal GI/Abdominal exam: Present: normal bowel sounds, soft. Absent: tenderness - Extremities Exam Additional comments: LUE antecubital area wrapped. - Neurological Exam Neurological exam: Present: alert, oriented X3 - Psychiatric Psychiatric exam: Present: normal affect, normal mood - Skin Skin exam: Present: dry, warm - VTE Documentation of Mechanical Device: Intermittent pneumatic compression device
[2017-03-03] MEDS ORDERED: Aminoglycoside Consult 1 EACH MC ONE (13:15)
--- NOTE | 2017-03-03 15:31 | Internal Med Progress Note ---
<Rudy Champagne - Last Filed: 03/03/17 15:28> Date of Encounter: 03/03/17 Time of Encounter: 09:00 - Assessment and plan (1) Acute exacerbation of chronic obstructive airways disease Current Visit: Yes Status: Acute Assessment and plan: -Maintain oxygen saturation 88-92%. Taper steroids as able. (2) Acute respiratory failure with hypoxia Current Visit: No Status: Acute Assessment and plan: -Continue current regimen described above (3) Anxiety Current Visit: Yes Status: Chronic Assessment and plan: -Patient's respiratory issues are largely affected by his anxiety. -His breathing and oxygenation improve with ativan. -continue PRN ativan. (4) Bipolar disease, chronic Current Visit: Yes Status: Chronic Assessment and plan: Stable -continue home Abilify. (5) IV drug abuse Current Visit: Yes Status: Chronic Assessment and plan: -Pt admits to IV cocaine use which he routinely injects into left AC. -Causing difficulty for placement upon d/c (6) Superficial venous thrombosis of left arm Current Visit: Yes Status: Acute Assessment and plan: POD 8: Pt was taken to surgery 02/[address] findings, vein excision per Dr. López. Surgery is following. Continue Dressing changes daily Cultures obtained during surgery final results are negative. Final anaerobic cultures negative (7) Foreign body (FB) in soft tissue Current Visit: Yes Status: Acute Assessment and plan: -Surgery following. -Pt has no leukocytosis or fever. -Not complaining of pain. - Subjective Interval history: Patient reports feeling better today. He is eager to move on to ECF. Patient still awaiting placement. - Constitutional Vitals: Temp Pulse Resp BP Pulse Ox 98.2 F 96 16 119/77 98 03/03/17 12:17 03/03/17 12:17 03/03/17 12:17 03/03/17 12:17 03/03/17 12:17 General appearance: Present: cooperative, A&O X 3, pleasant, answers questions appropriately - Eye Eye exam: Present: PERRL - ENT ENT exam: Present: mucous membranes moist - Respiratory Respiratory exam: Present: decreased breath sounds, CTAB. Absent: rales, rhonchi, wheezes - Cardiovascular Cardiovascular exam: Present: RRR, +S1, +S2. Absent: gallop, rubs, systolic murmur - GI/Abdominal GI/Abdominal exam: Present: normal bowel sounds, soft. Absent: tenderness - Extremities Exam Additional comments: LUE antecubital area wrapped. Dressings C/D/I - Neurological Exam Neurological exam: Present: alert, oriented X3. Absent: speech deficit - Psychiatric Psychiatric exam: Present: normal affect, normal mood Internal Medicine: Result - Labs CBC & Chem 7: 03/01/17 04:47 03/01/17 04:47 - ABG Interpretation ABG results: ABG ABG pH 7.25 pH Units (7.32-7.45) L 02/24/17 02:00 ABG pCO2 88 mmHg (35-45) H* 02/24/17 02:00 ABG pO2 65 mmHg (85-104) L 02/24/17 02:00 ABG O2 Saturation 89 % (95-98) L 02/24/17 02:00 - VTE Documentation of Mechanical Device: Intermittent pneumatic compression device Consult Discharge Plan - Plan Referrals: [facility] [Primary Care Provider] - <Charles Blanco - Last Filed: 03/03/17 19:29> Date of Encounter: 03/03/17 - Assessment and plan (1) Acute on chronic respiratory failure with hypoxemia Current Visit: Yes Status: Acute (2) Acute exacerbation of chronic obstructive airways disease Current Visit: Yes Status: Acute (3) Superficial foreign body of left axilla without major open wound and without infection Current Visit: Yes Status: Acute Qualifiers: Encounter type: subsequent encounter Qualified Code(s): S40.852D - Superficial foreign body of left upper arm, subsequent encounter (4) IV drug abuse Current Visit: Yes Status: Chronic (5) Chronic hepatitis C Current Visit: No Status: Chronic Qualifiers: Hepatic coma status: without hepatic coma Qualified Code(s): B18.2 - Chronic viral hepatitis C (6) Tobacco abuse Current Visit: No Status: Chronic (7) Schizoaffective disorder, bipolar type Current Visit: No Status: Chronic - Constitutional Vitals: Temp Pulse Resp BP Pulse Ox 97.7 F 105 20 155/75 95 03/03/17 19:11 03/03/17 19:11 03/03/17 19:11 03/03/17 19:11 03/03/17 19:11 Internal Medicine: Result - Labs CBC & Chem 7: 03/01/17 04:47 03/01/17 04:47 - ABG Interpretation ABG results: ABG ABG pH 7.25 pH Units (7.32-7.45) L 02/24/17 02:00 ABG pCO2 88 mmHg (35-45) H* 02/24/17 02:00 ABG pO2 65 mmHg (85-104) L 02/24/17 02:00 ABG O2 Saturation 89 % (95-98) L 02/24/17 02:00 - Attending Attestation I examined this patient and my medical decision-making was reviewed with the Resident Physician on 03/03/17. I agree with the documented findings, disposition and treatment plan as described except to the extent set forth below. Mr. Sosa is currently admitted for acute exac COPD. He remains moderate risk due to potential for worsening respiratory status. Mr. Sosa is resting comfortablly. No new issues. Still awaiting discharge placement. No fever or chills. Exam Alert. Comfortable Heart reg Some wheeze noted No edema I/P 1. Resp failure 2. COPD Further diagnoses and plan as above.
[2017-03-03] MEDS: Melatonin 3 MG TABLET PO SCH (21:59)
[2017-03-03] MEDS: Insulin DETEMIR 100 UNIT/ML X5UNITS SQ SCH (22:00)
[2017-03-03] MEDS: (Naltrexone Hcl [Revia] 50 MG) PO SCH (22:00)
[2017-03-04] MEDS: Ipratropium/Albuterol Neb 3 ML IH SCH ×7 (00:13→22:50)
[2017-03-04] MEDS: *HR* Heparin 5,000 UNIT/ML VIAL SQ SCH ×2 (05:05→18:38)
--- NOTE | 2017-03-04 08:48 | Discharge Summary ---
<Rudy Champagne - Last Filed: 03/04/17 09:11> Date of Encounter: 03/04/17 Time of Encounter: 08:46 - Discharge Diagnosis (1) Acute exacerbation of chronic obstructive airways disease Priority: Primary Status: Acute Comments: Acute on chronic hypoxic, hypercapnic respiratory failure secondary to acute COPD exacerbation due to acute viral bronchitis. (2) Acute respiratory failure with hypoxia Priority: Primary Status: Acute (3) Anxiety Priority: Secondary Status: Chronic (4) Bipolar disease, chronic Priority: Secondary Status: Chronic (5) IV drug abuse Priority: Secondary Status: Chronic (6) Superficial venous thrombosis of left arm Priority: Secondary Status: Acute (7) Foreign body (FB) in soft tissue Priority: Secondary Status: Acute - Discharge Medications Prescriptions: predniSONE [PredniSONE] 10 mg PO DAILY 18 Days Home Medications: Aspirin [Lo-Dose Aspirin EC] 81 mg PO DAILY 07/06/16 [History] Baclofen [Lioresal] 10 mg PO TID 07/06/16 [History] Dicyclomine [Bentyl] 20 mg PO QID PRN 07/06/16 [History] Docusate [Colace] 200 mg PO BID PRN 07/06/16 [History] Lactobacillus Acidophilus [Acidophilus] 1 cap PO DAILY 07/06/16 [History] Melatonin [Melatin] 9 mg PO HS 07/06/16 [History] hydrOXYzine HCl [Hydroxyzine HCl] 100 mg PO TID 07/06/16 [History] Loratadine [Allergy Relief] 10 mg PO DAILY 09/22/16 [History] Propranolol [Inderal] 10 mg PO BID 11/22/16 [History] ARIPiprazole [Abilify] 10 mg PO DAILY 01/21/17 [History] Acetaminophen [Tylenol] 650 mg PO Q6HR PRN 01/21/17 [History] Naltrexone HCl [Revia] 50 mg PO HS 01/21/17 [History] Oxybutynin [Ditropan] 5 mg PO TID 01/21/17 [History] Nicotine Patch [Nicoderm] 14 mg TD DAILY #28 patch 02/07/17 [Rx] Dextrose 50 % in Water (Syg) [Dextrose 50% (Syg)] 25 ml IVP AD PRN 03/04/17 [Rx] Dextrose Gel [Gluctose] 15 gm PO ONCE PRN 03/04/17 [Rx] Dextrose Gel [Gluctose] 30 gm PO ONCE PRN 03/04/17 [Rx] Famotidine [Pepcid] 20 mg PO BID tab 03/04/17 [Rx] Glucagon, Human Recombinant [Glucagen] 1 mg IM ONCE PRN vial 03/04/17 [Rx] GuaiFENesin/Dextromethorphan [Robitussin/Dm] 5 ml PO Q6HR PRN 03/04/17 [Rx] Heparin 5,000 unit SQ Q12HCO vial 03/04/17 [Rx] Insulin DETEMIR [Levemir] 5 unit SQ HS 03/04/17 [Rx] Insulin LISPRO [HumaLOG] 0 units SQ HS vial 03/04/17 [Rx] Insulin LISPRO [HumaLOG] 0 units SQ TIDAC vial 03/04/17 [Rx] Ipratropium/Albuterol Neb [Duoneb] 3 ml IH [id number] inh 03/04/17 [Rx] LORazepam [Ativan] 1 mg PO Q4HR PRN tab 03/04/17 [Rx] Naloxone [Narcan] 0.4 mg IVP Q2MIN PRN 03/04/17 [Rx] predniSONE [PredniSONE] 10 mg PO DAILY 18 Days 03/04/17 [Rx] Allergies/Adverse Reactions: Allergies haloperidol [From Haldol] Adverse Reaction (Verified 01/21/17 03:41) Muscle Pain [place] Adverse Reaction (Verified 01/21/17 03:41) Weakness Procedures/tests Complete & Pending: CXR: "FINDINGS: The lungs are clear. The costophrenic angles are sharp. The cardiomediastinal silhouette is within normal limits. There is no discernible pneumothorax. XR/XR chest 1V IMPRESSION: Negative portable chest." CT LUE: "FINDINGS: Bones: No acute osseous abnormality of the left upper extremity and other visualized osseous structures of the left hemithorax. No suspicious osseous lesion to suggest osteomyelitis. Soft Tissue: In the left antecubital fossa, multiple foci of gas are identified (series 9, images 139 through 154) with adjacent inflammatory stranding. A drainable fluid collection is not appreciated. Evaluation for venous thrombosis is limited given the lack of IV contrast. A punctate radiodense foreign body is seen along the radial aspect of the distal forearm, measuring 2 mm (series 5, image 236). Mild subcutaneous edema of the left upper extremity is seen. Joint: No significant degenerative changes of the left shoulder or left elbow. Other: Emphysematous changes are identified in the left hemithorax. No focal consolidations. CT/CT UE LT wo con IMPRESSION: 1. Multiple foci of gas in the antecubital fossa with adjacent inflammatory stranding. No drainable abscess. 2. Unable to evaluate for venous thrombosis without IV contrast. 3. Punctate radiodense foreign body along the radial aspect of the distal forearm of unclear etiology. 4. Emphysema." Date of admission: 02/24/17 15:27 Primary care physician: PCP [facility] Consults: 02/24/17 19:29 Consult to Vascular Surgery [CONS] Routine Consulting Provider: Vascular Surgery Kristin Reason for Consult: Basilic vein SVT Time Notified: 19:30 Call Completed: Yes 02/24/17 19:30 Consult to Pulmonology [CONS] Routine Consulting Provider: Pulm [facility] [place] Reason for Consult: COPD, bronchitis, respiratory failure/hypoxia. Call Completed: No 02/25/17 12:09 Consult to Tool Marker [CONS] Routine Reason for SW Consult: discharge planning 02/25/17 15:06 Consult to Occupational Therapy [CONS] Routine Comment: Evaluate, develop and implement POC Reason for Consult: Evaluation Consult to Physical Therapy [CONS] Routine Comment: Evaluate, develop and implement POC Reason for Consult: Evaluation Discharging clinician: Rudy Champagne Anticipated date of discharge: 03/04/17 - Patient Status Disposition: Transfer SNF Condition: Fair Overall status at discharge: patient is progressing back to baseline - Discharge Instructions [facility] With: [facility] Care Provider[facility] - Additional Instructions: Please folow up with your primary care physician within 1 week of discharge. Continue oxygen therapy taper of prednisone. - Diet and Activity Activity: as per physical therapy, wear oxygen at all times Diet: regular diet Interval History: Patient is resting comfortably in bed. Patient has improved breathing. Patient eager to leave the hospital. Hospital course: Mr. Sosa is a 61 year old male c PMHx of hepatitis, anxiety, bipolar, depression, and schizophrenia, and Chronic respiratory failure secondary to COPD , on 3L home O2 presented to the hospital with worsening SOB and [place], Non productive cough. Patient also has a history of injecting cocaine. Patient was worked up for COPD exacerbation and started on duonebs, IV steroids, and IV azithromycin. Surgery was consulted for a hardened red area in the L antecubital fossa. A doppler study showed venous thrombus and CT showed piece of broken needle as well as the venous thrombus. Patient had had an abscess in the area and attempted to drain it himself and broke off a piece of the needle in his own arm. Surgery removed the needle bit and the venous thrombus. Patient was started on IV vancomcin until wound cultures came back negative and it was stopped. Patient's breathing improved through out his stay and he was able to be transitioned off Abx and to oral steroids. Patient felt he could not manage at home and social work spent a long amount of time seekign placement for patient, but due to hx of IVDA and past fellony conviction placement was difficult to find. Patient was medically clear to discaharge [facility] - Time Spent with Patient Total time spent providing and/or coordinating discharge services: Greater than 30 minutes (40minutes) - Constitutional Vitals: Temp Pulse Resp BP Pulse Ox 97.5 F L 82 20 122/78 99 03/04/17 08:15 03/04/17 08:15 03/04/17 08:15 03/04/17 08:15 03/04/17 08:15 General appearance: Present: cooperative, A&O X 3, pleasant, answers questions appropriately - Eye Eye exam: Present: PERRL - ENT ENT exam: Present: mucous membranes moist - Respiratory Respiratory exam: Present: decreased breath sounds, CTAB. Absent: rales, rhonchi, wheezes - Cardiovascular Cardiovascular exam: Present: RRR, +S1, +S2. Absent: diastolic murmur, gallop, rubs - GI/Abdominal GI/Abdominal exam: Present: normal bowel sounds, soft. Absent: tenderness - Extremities Exam Additional comments: antecubital area of LUE wrapped. Dressign C/D/I - Neurological Exam Neurological exam: Present: alert, oriented X3. Absent: speech deficit - Psychiatric Psychiatric exam: Present: normal affect, normal mood - Skin Skin exam: Present: dry, warm - VTE Documentation of Mechanical Device: Intermittent pneumatic compression device <Jay Borjas H - Last Filed: 03/04/17 09:19> Date of Encounter: 03/04/17 Date of admission: 02/24/17 15:27 Primary care physician: [facility] Consults: 02/24/17 19:29 Consult to Vascular Surgery [CONS] Routine Consulting Provider: Vascular Surgery [place] Reason for Consult: Basilic vein SVT Time Notified: 19:30 Call Completed: Yes 02/24/17 19:30 Consult to Pulmonology [CONS] Routine Consulting Provider: Pulm [facility] [place] Reason for Consult: COPD, bronchitis, respiratory failure/hypoxia. Call Completed: No 02/25/17 12:09 Consult to Tool Marker [CONS] Routine Reason for SW Consult: discharge planning 02/25/17 15:06 Consult to Occupational Therapy [CONS] Routine Comment: Evaluate, develop and implement POC Reason for Consult: Evaluation Consult to Physical Therapy [CONS] Routine Comment: Evaluate, develop and implement POC Reason for Consult: Evaluation Hospital course: Mr. Sosa is a 61 year old male - Time Spent with Patient Total time spent providing and/or coordinating discharge services: - Constitutional Vitals: Temp Pulse Resp BP Pulse Ox 97.5 F L 82 20 122/78 99 03/04/17 08:15 03/04/17 08:15 03/04/17 08:15 03/04/17 08:15 03/04/17 08:15 - Attending Attestation History of hepatitis B Continue prednisone taper. Stable to be discharged I examined this patient and my medical decision-making was reviewed with the Resident Physician. I agree with the documented findings, disposition and treatment plan as described except to the extent set forth below.
--- NOTE | 2017-03-04 09:16 | Physician Discharge Referral ---
<Rudy Champagne - Last Filed: 03/04/17 09:15> [facility] Referral Info Provider in Charge after Transfer: PCP Institutional Level of Care: Skilled - Diagnosis (1) Acute exacerbation of chronic obstructive airways disease Status: Acute (2) Acute respiratory failure with hypoxia Status: Acute (3) Anxiety Status: Chronic (4) Bipolar disease, chronic Status: Chronic (5) IV drug abuse Status: Chronic (6) Superficial venous thrombosis of left arm Status: Acute (7) Foreign body (FB) in soft tissue Status: Acute - Transfer Medications Prescriptions: predniSONE [PredniSONE] 10 mg PO DAILY 18 Days Home Medications: Aspirin [Lo-Dose Aspirin EC] 81 mg PO DAILY 07/06/16 [History] Baclofen [Lioresal] 10 mg PO TID 07/06/16 [History] Dicyclomine [Bentyl] 20 mg PO QID PRN 07/06/16 [History] Docusate [Colace] 200 mg PO BID PRN 07/06/16 [History] Lactobacillus Acidophilus [Acidophilus] 1 cap PO DAILY 07/06/16 [History] Melatonin [Melatin] 9 mg PO HS 07/06/16 [History] hydrOXYzine HCl [Hydroxyzine HCl] 100 mg PO TID 07/06/16 [History] Loratadine [Allergy Relief] 10 mg PO DAILY 09/22/16 [History] Propranolol [Inderal] 10 mg PO BID 11/22/16 [History] ARIPiprazole [Abilify] 10 mg PO DAILY 01/21/17 [History] Acetaminophen [Tylenol] 650 mg PO Q6HR PRN 01/21/17 [History] Naltrexone HCl [Revia] 50 mg PO HS 01/21/17 [History] Oxybutynin [Ditropan] 5 mg PO TID 01/21/17 [History] Nicotine Patch [Nicoderm] 14 mg TD DAILY #28 patch 02/07/17 [Rx] Dextrose 50 % in Water (Syg) [Dextrose 50% (Syg)] 25 ml IVP AD PRN 03/04/17 [Rx] Dextrose Gel [Gluctose] 15 gm PO ONCE PRN 03/04/17 [Rx] Dextrose Gel [Gluctose] 30 gm PO ONCE PRN 03/04/17 [Rx] Famotidine [Pepcid] 20 mg PO BID tab 03/04/17 [Rx] Glucagon, Human Recombinant [Glucagen] 1 mg IM ONCE PRN vial 03/04/17 [Rx] GuaiFENesin/Dextromethorphan [Robitussin/Dm] 5 ml PO Q6HR PRN 03/04/17 [Rx] Heparin 5,000 unit SQ Q12HCO vial 03/04/17 [Rx] Insulin DETEMIR [Levemir] 5 unit SQ HS 03/04/17 [Rx] Insulin LISPRO [HumaLOG] 0 units SQ HS vial 03/04/17 [Rx] Insulin LISPRO [HumaLOG] 0 units SQ TIDAC vial 03/04/17 [Rx] Ipratropium/Albuterol Neb [Duoneb] 3 ml IH [id number] inh 03/04/17 [Rx] LORazepam [Ativan] 1 mg PO Q4HR PRN tab 03/04/17 [Rx] Naloxone [Narcan] 0.4 mg IVP Q2MIN PRN 03/04/17 [Rx] predniSONE [PredniSONE] 10 mg PO DAILY 18 Days 03/04/17 [Rx] Allergies/Adverse Reactions: Allergies haloperidol [From Haldol] Adverse Reaction (Verified 01/21/17 03:41) Muscle Pain [place] Adverse Reaction (Verified 01/21/17 03:41) Weakness - Respiratory Orders Oxygen / L per min (2 1/2 Lt) Smoking Cessation: Smoking cessation has been advised. For more information, call the [employer] Quit Line at 9-713-WQST-NOW. - Advance Directives Code Status: Full Code - Treatments List/Other: Please folow up with your primary care physician within 1 week of discharge. Continue oxygen therapy taper of prednisone. - Diet Orders Regular CERTIFICATION: I certify that the transfer of the above named patient to an Extended Care Facility is necessary for the continuing treatment of the diagnosis listed. The above information is true and accurate reflection of patient's current condition. Confidential - Redisclosure prohibited without a patient's written consent. <Jay Borjas H - Last Filed: 03/04/17 09:20> - Respiratory Orders Smoking Cessation: Smoking cessation has been advised. For more information, call the [place] [employer] Quit Line at 1-967-FPAL-NOW. CERTIFICATION: I certify that the transfer of the above named patient to an Extended Care Facility is necessary for the continuing treatment of the diagnosis listed. The above information is true and accurate reflection of patient's current condition. Confidential - Redisclosure prohibited without a patient's written consent. I examined this patient and my medical decision-making was reviewed with the Resident Physician. I agree with the documented findings, disposition and treatment plan as described except to the extent set forth below.
[2017-03-04] MEDS: Nicotine 14 MG PATCH.TD24 TD SCH (09:28)
[2017-03-04] MEDS: Insulin LISPRO 300 UNITS/3 ML VIAL SQ SCH ×4 (09:28→20:56)
[2017-03-04] MEDS: Loratadine 10 MG TABLET PO SCH (09:29)
[2017-03-04] MEDS: Famotidine 20 MG TABLET PO SCH ×2 (09:29→20:36)
[2017-03-04] MEDS: hydrOXYzine pamoate 25 MG CAPSULE PO SCH ×3 (09:29→20:35)
[2017-03-04] MEDS: Baclofen 10 MG TABLET PO SCH ×3 (09:29→20:36)
[2017-03-04] MEDS: Aspirin Enteric Coated 81 MG Tablet PO SCH (09:29)
[2017-03-04] MEDS: Lactobacillus 1 EACH CAP.SPRINK PO SCH (09:29)
[2017-03-04] MEDS: predniSONE 20 MG TABLET PO SCH ×2 (09:29→15:18)
[2017-03-04] MEDS: ARIPiprazole 10 MG TABLET PO SCH (09:29)
[2017-03-04] MEDS: *HR* LORazepam 1 MG TABLET PO PRN ×2 (09:44→15:18)
--- NOTE | 2017-03-04 15:38 | General Surgery Progress Note ---
Date of Encounter: 03/04/17 Time of Encounter: 15:00 Subjective Narrative: General Surgery Afeb- HR 94, RR 18, BP 115/71 abscess / I&D left antecubital clean with minimal serous drainage. No purulence. Dressing changed - replaced with dry gauze 4 x 4 gauze and Kerlix. Status stable. Awaiting transfer to [facility] Objective Vital Signs - Last 8 Hours Temp Pulse Resp BP Pulse Ox 03/04/17 11:20 18 100 03/04/17 10:37 97.6 F 94 18 115/71 100 03/04/17 09:20 100 03/04/17 08:15 97.5 F L 82 20 122/78 99 03/04/17 07:40 18 99 Intake and Output 03/03/17 03/04/17 03/04/17 23:59 07:59 15:59 Intake Total 720 / 720 Output Total 1150 / 1150 450 / 450 Balance -1150 / -1150 270 / 270 Intake: Oral 720 / 720 Output: Urine 1150 / 1150 450 / 450 Other: Meal Lunch Percent of Meal Consumed 100% Stool Size Large Stool Consistency loose Stool Color Brown # Voids 2 Weight 73.936 kg Blood Glucose* 271 204 Patient Weight 03/04/17 23:59 Weight 73.936 kg - Labs 03/01/17 04:47 03/01/17 04:47 - VTE Documentation of Mechanical Device: Intermittent pneumatic compression device Consult Discharge Plan - Plan Additional Instructions: Please folow up with your primary care physician within 1 week of discharge. Continue oxygen therapy taper of prednisone. [facility] Provider[facility] - Prescriptions: predniSONE [PredniSONE] 10 mg PO DAILY 18 Days
[2017-03-04] MEDS: Melatonin 3 MG TABLET PO SCH (20:36)
[2017-03-04] MEDS: Insulin DETEMIR 100 UNIT/ML X5UNITS SQ SCH (20:37)
[2017-03-04] MEDS: (Naltrexone Hcl [Revia] 50 MG) PO SCH (20:57)
[2017-03-05] MEDS: Ipratropium/Albuterol Neb 3 ML IH SCH ×6 (04:11→23:28)
[2017-03-05] MEDS: *HR* Heparin 5,000 UNIT/ML VIAL SQ SCH ×2 (05:54→18:06)
--- NOTE | 2017-03-05 07:47 | Anesthesia Evaluation PreOp ---
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) Other Medical History: Denies Any Significant HX Anesthesia History: No Prior Anesthetic Complications, Past Anesthesia Alcohol Use: none Drug use: cocaine, IV Drug Use, other Medications and Allergies Aspirin [Lo-Dose Aspirin EC] 81 mg PO DAILY 07/06/16 [History] Baclofen [Lioresal] 10 mg PO TID 07/06/16 [History] Dicyclomine [Bentyl] 20 mg PO QID PRN 07/06/16 [History] Docusate [Colace] 200 mg PO BID PRN 07/06/16 [History] Lactobacillus Acidophilus [Acidophilus] 1 cap PO DAILY 07/06/16 [History] Melatonin [Melatin] 9 mg PO HS 07/06/16 [History] hydrOXYzine HCl [Hydroxyzine HCl] 100 mg PO TID 07/06/16 [History] Loratadine [Allergy Relief] 10 mg PO DAILY 09/22/16 [History] Propranolol [Inderal] 10 mg PO BID 11/22/16 [History] ARIPiprazole [Abilify] 10 mg PO DAILY 01/21/17 [History] Acetaminophen [Tylenol] 650 mg PO Q6HR PRN 01/21/17 [History] Naltrexone HCl [Revia] 50 mg PO HS 01/21/17 [History] Oxybutynin [Ditropan] 5 mg PO TID 01/21/17 [History] Nicotine Patch [Nicoderm] 14 mg TD DAILY #28 patch 02/07/17 [Rx] Dextrose 50 % in Water (Syg) [Dextrose 50% (Syg)] 25 ml IVP AD PRN 03/04/17 [Rx] Dextrose Gel [Gluctose] 15 gm PO ONCE PRN 03/04/17 [Rx] Dextrose Gel [Gluctose] 30 gm PO ONCE PRN 03/04/17 [Rx] Famotidine [Pepcid] 20 mg PO BID tab 03/04/17 [Rx] Glucagon, Human Recombinant [Glucagen] 1 mg IM ONCE PRN vial 03/04/17 [Rx] GuaiFENesin/Dextromethorphan [Robitussin/Dm] 5 ml PO Q6HR PRN 03/04/17 [Rx] Heparin 5,000 unit SQ Q12HCO vial 03/04/17 [Rx] Insulin DETEMIR [Levemir] 5 unit SQ HS 03/04/17 [Rx] Insulin LISPRO [HumaLOG] 0 units SQ HS vial 03/04/17 [Rx] Insulin LISPRO [HumaLOG] 0 units SQ TIDAC vial 03/04/17 [Rx] Ipratropium/Albuterol Neb [Duoneb] 3 ml IH [id number] inh 03/04/17 [Rx] LORazepam [Ativan] 1 mg PO Q4HR PRN tab 03/04/17 [Rx] Naloxone [Narcan] 0.4 mg IVP Q2MIN PRN 03/04/17 [Rx] predniSONE [PredniSONE] 10 mg PO DAILY 18 Days 03/04/17 [Rx] Allergies haloperidol [From Haldol] Adverse Reaction (Verified 01/21/17 03:41) Muscle Pain [place] Adverse Reaction (Verified 01/21/17 03:41) Weakness - Meds/Allergy Pre-op Review Medications Reviewed: Yes Allergies Reviewed: Yes Beta Blockers on Current Med List: Yes If Beta Blockers taken, Date/Time (Last Dose taken): 20:36 03/04/2017 Anesthesia Results - Labs 03/01/17 04:47 03/01/17 04:47 - Imaging EKG: report reviewed (ST) Anesthesia Exam O2 Sat O2 Sat by Pulse Oximetry 100 O2 Sat by Pulse Oximetry 96 O2 Sat by Pulse Oximetry 97 O2 Sat by Pulse Oximetry 98 O2 Sat by Pulse Oximetry 99 O2 Sat by Pulse Oximetry 100 O2 Sat by Pulse Oximetry 100 O2 Sat by Pulse Oximetry 100 O2 Sat by Pulse Oximetry 99 Vital Signs Temp Pulse Resp BP Pulse Ox 98.5 F 115 20 133/120 95 02/21/17 23:16 02/21/17 23:16 02/21/17 23:16 02/21/17 23:16 02/21/17 23:16 Vital Signs/O2 Sat, Most Current Temp Pulse Resp BP Pulse Ox 97.9 F 76 18 113/72 100 03/05/17 07:03 03/05/17 07:03 03/05/17 07:03 03/05/17 07:03 08/16/17 07:03 Height: 5'8'' Weight: 163# NPO (# of Hours): > 8 hrs Pain Scale: 0 Pain Scale Used: Numeric (1 - 10) - HEENT Pupil (Motor): Pupils equal, EOMI Mallampati: III Teeth: Missing Oral Opening: Greater than 3 - KILN LOADER LOC: Oriented KILN LOADER Motor: Normal RUE, Normal LUE, Normal RLE, Normal LLE, Normal Face KILN LOADER Sensory: Normal: RUE, LUE, RLE, LLE, Face - Cardiac Rhythm: Regular Murmur: None JVD: No Carotid Bruit: No - Pulmonary Breath Sounds: bilateral Clear Respiratory Effort: Symmetrical Anesthesia Assess/Plan ASA Score: 3 Modified Anselmo Scale for Level of Consciousness: Cooperative, oriented, and tranquil Anesthetic Plan: MAC Autologous Blood: Yes Monitoring Plan: Standard Monitors Recovery Plan: Other
[2017-03-05] MEDS ORDERED: Lidocaine -MPF 2% 2 ML VIAL ONE (08:50)
[2017-03-05] MEDS ORDERED: Propofol 500 MG/50 ML INFUS..BTL ONE (08:50)
[2017-03-05] MEDS ORDERED: Lidocaine/EPI 1:200k 1% PF 10 ML VIAL ONE (09:08)
--- NOTE | 2017-03-05 09:30 | Anesthesia Evaluation Post Op ---
Date of Encounter: 03/05/17 Time of Encounter: 09:27 - Vital Signs Vital Signs: vss - Lungs Lungs: Wheezes - Airway Airway: Non-obstructed - Cardiovascular Baseline Rhythm - Mental Status Mental Status: Asleep with brisk response to light stimulation - Pain Pain Scale used: Elsi (Faces) - Nausea Vomiting Nausea Vomiting: Not Present - Discharge PostOp Status: Transfer Patient to floor
--- NOTE | 2017-03-05 09:43 | Operative Note ---
Date of procedure: 03/05/17 Pre-op diagnosis: abscess left upper arm, s/p I&D Post-op diagnosis: same Procedure: delayed closure wound left upper arm Complications: none apparent Anesthesia: IV sedation Local Anesthetics: 1% Lidocaine HCL with Epinephrine 1:200,000 SubQ (cc) (3 mL) Surgeon: Antonio López Estimated blood loss (cc): 1 IV fluids (cc): 400 Condition: stable Disposition: floor Procedure in Detail: The patient was brought to the operating room where he was placed supine upon the operating room table. Left arm was placed at right angles to the long axis of the body. The patient was appropriately identified as to person, procedure and laterality. The accuracy of this information was confirmed by the procedure team. The patient was then sedated under the supervision Dr Yinka Valentin. The left arm was prepped and draped in usual sterile fashion. The wound for which the patient was presenting for treatment was an abscess related to previous IV drug use that had undergone incision and drainage. Delayed primary closure was Plans to facilitate the patient's departure from the hospital as well as healing of the abscess cavity. Several milliliters of 1% lidocaine with 1 100, 000 epinephrine was infiltrated locally. The skin edges were then approximated with interrupted 4-0 Ethilon. The central portion of the wound was left partially open to facilitate any additional drainage. Fluffy gauze followed by Kerlix was applied, secured with Coban. The patient was taken to recovery in stable condition. Needle, sponge, and instrument counts were correct at the close of the case.
[2017-03-05] MEDS ORDERED: Naloxone 0.4 MG/ML INJ IVP PRN (09:44)
[2017-03-05] MEDS ORDERED: Dextrose Gel 15 GM PO PRN ×2 (09:44)
[2017-03-05] MEDS ORDERED: *HR* Dextrose 50 % in Water (Syg) 50 ML SYRINGE IVP PRN (09:44)
[2017-03-05] MEDS ORDERED: D5% in Water 1,000 ML IVC PRN (09:44)
[2017-03-05] MEDS ORDERED: Acetaminophen 325 MG TABLET PO PRN (09:44)
--- NOTE | 2017-03-05 10:04 | Internal Med Progress Note ---
<CarterbrisaRudy - Last Filed: 03/05/17 10:02> Date of Encounter: 03/05/17 Time of Encounter: 09:50 - Assessment and plan (1) Acute exacerbation of chronic obstructive airways disease Current Visit: Yes Status: Acute Assessment and plan: likely secondary to acute viral bronchitis Maintain oxygen saturation 88-92%. Taper steroids as able. abx course completed (2) Acute respiratory failure with hypoxia Current Visit: No Status: Acute Assessment and plan: Secondary to COPD exacerbation. Continue current regimen described above (3) Anxiety Current Visit: Yes Status: Chronic Assessment and plan: Patient's respiratory issues are largely affected by his anxiety. His breathing and oxygenation improve with ativan. continue PRN ativan. (4) Bipolar disease, chronic Current Visit: Yes Status: Chronic Assessment and plan: chronic, Stable continue home Abilify. (5) IV drug abuse Current Visit: Yes Status: Chronic Assessment and plan: Pt admits to IV cocaine use which he routinely injects into left AC. Causing difficulty for placement upon d/c Pt has been counseled multiple times about cessation. (6) Superficial venous thrombosis of left arm Current Visit: Yes Status: Acute Assessment and plan: POD 9 original surgery: Pt was taken back to surgery today for delayed wound closure. Patient tolerated the procedure well. POD 0 Pt was taken to surgery 02/[address] findings, vein excision per Dr. López. Surgery is following. Continue Dressing changes daily Cultures obtained during surgery final results are negative. Final anaerobic cultures negative (7) Foreign body (FB) in soft tissue Current Visit: Yes Status: Acute Assessment and plan: -Pt had delayed closure of wound site completed today. Patient feeling well s/p surgery Surgery following. -Pt has no leukocytosis or fever. -Not complaining of pain. - Subjective Interval history: Patient back from surgery. Patient had delayed closure of his abscess performed today. Patient resting comfortably in bed. No current complaints. He is eager to move on to [facility]. Patient still awaiting placement. - Constitutional Vitals: Temp Pulse Resp BP Pulse Ox 97.6 F 73 18 104/67 100 03/05/17 09:51 03/05/17 09:51 03/05/17 09:51 03/05/17 09:51 03/05/17 09:51 General appearance: Present: cooperative, A&O X 3, pleasant, answers questions appropriately - Eye Eye exam: Present: PERRL - ENT ENT exam: Present: mucous membranes moist - Respiratory Respiratory exam: Present: decreased breath sounds, CTAB. Absent: rales, rhonchi, wheezes - Cardiovascular Cardiovascular exam: Present: RRR, +S1, +S2. Absent: diastolic murmur, gallop, rubs - GI/Abdominal GI/Abdominal exam: Present: normal bowel sounds, soft. Absent: tenderness - Extremities Exam Additional comments: L antecubital region wrapped. Dressing C/D/I - Neurological Exam Neurological exam: Present: alert, oriented X3. Absent: speech deficit - Psychiatric Psychiatric exam: Present: normal affect, normal mood - Skin Skin exam: Present: dry, warm Internal Medicine: Result - Labs CBC & Chem 7: 03/01/17 04:47 03/01/17 04:47 - ABG Interpretation ABG results: ABG ABG pH 7.25 pH Units (7.32-7.45) L 02/24/17 02:00 ABG pCO2 88 mmHg (35-45) H* 02/24/17 02:00 ABG pO2 65 mmHg (85-104) L 02/24/17 02:00 ABG O2 Saturation 89 % (95-98) L 02/24/17 02:00 - VTE Documentation of Mechanical Device: Intermittent pneumatic compression device Consult Discharge Plan - Plan Additional Instructions: Please folow up with your primary care physician within 1 week of discharge. Continue oxygen therapy taper of prednisone. [facility]: [facility] Provider[facility] - Prescriptions: predniSONE [PredniSONE] 10 mg PO DAILY 18 Days <Jay Borjas - Last Filed: 03/05/17 14:25> Date of Encounter: 03/05/17 - Constitutional Vitals: Temp Pulse Resp BP Pulse Ox 97.9 F 78 17 107/67 99 03/05/17 11:42 03/05/17 11:42 03/05/17 11:42 03/05/17 11:42 03/05/17 11:42 Internal Medicine: Result - Labs CBC & Chem 7: 03/01/17 04:47 03/01/17 04:47 - ABG Interpretation ABG results: ABG ABG pH 7.25 pH Units (7.32-7.45) L 02/24/17 02:00 ABG pCO2 88 mmHg (35-45) H* 02/24/17 02:00 ABG pO2 65 mmHg (85-104) L 02/24/17 02:00 ABG O2 Saturation 89 % (95-98) L 02/24/17 02:00 - Attending Attestation Dr. Talavera from the [facility] requested an updated physical therapy evaluation in order to accept the patient to a rehabilitation unit at the [facility]. We will try to arrange his placement as physical therapy is a still recommending ECF I examined this patient and my medical decision-making was reviewed with the Resident Physician. I agree with the documented findings, disposition and treatment plan as described except to the extent set forth below.
[2017-03-05] MEDS: Famotidine 20 MG TABLET PO SCH ×2 (12:17→20:38)
[2017-03-05] MEDS: predniSONE 20 MG TABLET PO SCH ×2 (12:18→18:07)
[2017-03-05] MEDS: Baclofen 10 MG TABLET PO SCH ×3 (12:18→20:38)
[2017-03-05] MEDS: hydrOXYzine pamoate 25 MG CAPSULE PO SCH ×3 (12:18→20:38)
[2017-03-05] MEDS: Insulin LISPRO 300 UNITS/3 ML VIAL SQ SCH ×2 (12:20→18:05)
[2017-03-05] MEDS: *HR* LORazepam 1 MG TABLET PO PRN ×2 (13:25→20:40)
[2017-03-05] MEDS ORDERED: hydrOXYzine pamoate 25 MG CAPSULE PO SCH (15:00)
[2017-03-05] MEDS ORDERED: Baclofen 10 MG TABLET PO SCH (15:00)
[2017-03-05] MEDS ORDERED: predniSONE 20 MG TABLET PO SCH (17:00)
[2017-03-05] MEDS ORDERED: Insulin DETEMIR 100 UNIT/ML X5UNITS SQ SCH (21:00)
[2017-03-05] MEDS ORDERED: Melatonin 3 MG TABLET PO SCH (21:00)
[2017-03-05] MEDS ORDERED: (Naltrexone Hcl [Revia] 50 MG) PO SCH (21:00)
[2017-03-05] MEDS ORDERED: Insulin LISPRO 300 UNITS/3 ML VIAL SQ SCH (21:00)
[2017-03-05] MEDS ORDERED: Famotidine 20 MG TABLET PO SCH (21:00)
[2017-03-06] MEDS: Ipratropium/Albuterol Neb 3 ML IH SCH ×4 (04:19→16:29)
[2017-03-06] MEDS: *HR* Heparin 5,000 UNIT/ML VIAL SQ SCH (05:53)
[2017-03-06] MEDS: hydrOXYzine pamoate 25 MG CAPSULE PO SCH ×2 (08:56→16:10)
[2017-03-06] MEDS: Famotidine 20 MG TABLET PO SCH (08:57)
[2017-03-06] MEDS: predniSONE 20 MG TABLET PO SCH (08:57)
[2017-03-06] MEDS: Baclofen 10 MG TABLET PO SCH ×2 (08:57→16:11)
[2017-03-06] MEDS: *HR* LORazepam 1 MG TABLET PO PRN (08:57)
[2017-03-06] MEDS: Insulin LISPRO 300 UNITS/3 ML VIAL SQ SCH ×2 (08:58→13:07)
[2017-03-06] MEDS ORDERED: Lactobacillus 1 EACH CAP.SPRINK PO SCH ×2 (09:00→10:56)
[2017-03-06] MEDS ORDERED: ARIPiprazole 10 MG TABLET PO SCH ×2 (09:00→10:54)
[2017-03-06] MEDS ORDERED: Aspirin Enteric Coated 81 MG Tablet PO SCH ×2 (09:00→10:54)
[2017-03-06] MEDS ORDERED: Nicotine 14 MG PATCH.TD24 TD SCH ×2 (09:00→10:48)
[2017-03-06] MEDS ORDERED: Loratadine 10 MG TABLET PO SCH ×2 (09:00→10:55)
--- NOTE | 2017-03-06 10:22 | Internal Med Progress Note ---
<CarterbrisaRudy - Last Filed: 03/06/17 10:20> Date of Encounter: 03/06/17 Time of Encounter: 09:05 - Assessment and plan (1) Acute exacerbation of chronic obstructive airways disease Current Visit: Yes Status: Acute Assessment and plan: -likely secondary to acute viral bronchitis -Maintain oxygen saturation 88-92%. -Taper steroids as able. -abx course completed - PT still recommending SNF/ECF for patient - Still attempting to transfer to [facility] (2) Acute respiratory failure with hypoxia Current Visit: No Status: Acute Assessment and plan: -Secondary to COPD exacerbation. -Continue current regimen described above (3) Anxiety Current Visit: Yes Status: Chronic Assessment and plan: -Patient's respiratory issues are largely affected by his anxiety. -His breathing and oxygenation improve with ativan. -continue PRN ativan. (4) Bipolar disease, chronic Current Visit: Yes Status: Chronic Assessment and plan: -chronic, Stable -continue home meds. (5) IV drug abuse Current Visit: Yes Status: Chronic Assessment and plan: -Pt admits to IV cocaine use which he routinely injects into left AC. -Pt has been counseled multiple times about cessation. (6) Superficial venous thrombosis of left arm Current Visit: Yes Status: Acute Assessment and plan: Pt was taken back to surgery 03/05 for delayed wound closure. Patient tolerated the procedure well. POD 1 Dressing C/D/I POD 10 original surgery: Pt was taken to surgery 02/[address] findings, vein excision per Dr. López. Surgery is following. Continue Dressing changes daily Cultures obtained during surgery final results are negative. Final anaerobic cultures negative Yesterday's surgery is not a barrier to discharge (7) Foreign body (FB) in soft tissue Current Visit: Yes Status: Acute Assessment and plan: Pt had delayed closure of wound site completed yesterday. Surgery following. - Subjective Interval history: Patientis POD 1 s/p delayed closure of his abscess. Patient resting comfortably in bed. No current complaints. He is eager to move on to ECF. Patient still awaiting placement. - Constitutional Vitals: Temp Pulse Resp BP Pulse Ox 97.9 F 84 18 111/68 99 03/06/17 07:38 03/06/17 07:38 03/06/17 08:17 03/06/17 07:38 03/06/17 08:17 General appearance: Present: cooperative, A&O X 3, pleasant, answers questions appropriately - Eye Eye exam: Present: PERRL - ENT ENT exam: Present: mucous membranes moist - Respiratory Respiratory exam: Present: decreased breath sounds, CTAB. Absent: rales, rhonchi, wheezes - Cardiovascular Cardiovascular exam: Present: RRR, +S1, +S2. Absent: diastolic murmur, gallop, rubs - GI/Abdominal GI/Abdominal exam: Present: normal bowel sounds, soft. Absent: tenderness - Extremities Exam Additional comments: L antecubital area wrapped. Dressing c/d/i. - Neurological Exam Neurological exam: Present: alert, oriented X3. Absent: speech deficit - Psychiatric Psychiatric exam: Present: normal affect, normal mood - Skin Skin exam: Present: dry, warm Internal Medicine: Result - Labs CBC & Chem 7: 03/01/17 04:47 03/01/17 04:47 - ABG Interpretation ABG results: ABG ABG pH 7.25 pH Units (7.32-7.45) L 02/24/17 02:00 ABG pCO2 88 mmHg (35-45) H* 02/24/17 02:00 ABG pO2 65 mmHg (85-104) L 02/24/17 02:00 ABG O2 Saturation 89 % (95-98) L 02/24/17 02:00 - VTE Documentation of Mechanical Device: Intermittent pneumatic compression device Consult Discharge Plan - Plan Additional Instructions: Please folow up with your primary care physician within 1 week of discharge. Continue oxygen therapy taper of prednisone. [facility]errals: [facility] [Primary Care Provider[facility] - Prescriptions: predniSONE [PredniSONE] 10 mg PO DAILY 18 Days <Jay Borjas H - Last Filed: 03/06/17 13:57> Date of Encounter: 03/06/17 - Constitutional Vitals: Temp Pulse Resp BP Pulse Ox 98.2 F 92 18 107/67 100 03/06/17 11:53 03/06/17 11:53 03/06/17 11:53 03/06/17 11:53 03/06/17 11:53 Internal Medicine: Result - Labs CBC & Chem 7: 03/01/17 04:47 03/01/17 04:47 - ABG Interpretation ABG results: ABG ABG pH 7.25 pH Units (7.32-7.45) L 02/24/17 02:00 ABG pCO2 88 mmHg (35-45) H* 02/24/17 02:00 ABG pO2 65 mmHg (85-104) L 02/24/17 02:00 ABG O2 Saturation 89 % (95-98) L 02/24/17 02:00 - Attending Attestation awaiting placement I examined this patient and my medical decision-making was reviewed with the Resident Physician. I agree with the documented findings, disposition and treatment plan as described except to the extent set forth below.
--- NOTE | 2017-03-06 12:58 | General Surgery Progress Note ---
Date of Encounter: 03/06/17 Time of Encounter: 12:40 Subjective Narrative: General Surgery - s/p delayed primary closure I&D site left arm Dressing removed. The wound is clean, no erythema or purulence. Minimal edema. Wound redressed with 4 x 4 gauze and Kerlix. Objective Vital Signs - Last 8 Hours Temp Pulse Resp BP Pulse Ox 03/06/17 11:53 98.2 F 92 18 107/67 100 03/06/17 11:30 18 97 03/06/17 08:17 18 99 03/06/17 07:55 100 03/06/17 07:38 97.9 F 84 16 111/68 100 Intake and Output 03/05/17 03/06/17 03/06/17 23:59 07:59 15:59 Intake Total 240 / 240 240 / 240 Output Total 370 / 370 Balance 240 / 240 -130 / -130 Intake: Oral 240 / 240 240 / 240 Output: Urine 370 / 370 Other: Meal Dinner Breakfast Percent of Meal Consumed 100% 100% Weight 74.162 kg Blood Glucose* 135 272 112 Patient Weight 03/06/17 23:59 Weight 74.162 kg - Labs 03/01/17 04:47 03/01/17 04:47 - VTE Documentation of Mechanical Device: Intermittent pneumatic compression device Consult Discharge Plan - Plan Additional Instructions: Please folow up with your primary care physician within 1 week of discharge. Continue oxygen therapy taper of prednisone. [facility]errals: [facility] [Primary Care Provider] - Prescriptions: predniSONE [PredniSONE] 10 mg PO DAILY 18 Days
[2017-03-06 15:54] VITALS: BP 121/88
== END 2017-03-06 16:33 | DRG 579 ==
LOC: EMEROO 23:14 → 3BNU 23:14 → SUATTDRO 02-24 15:27
PROVIDERS: ADMIT Internal Medicine; ATTEND Internal Medicine

== ENCOUNTER 2017-07-05 22:49 | Inpatient (IN) ==
[2017-07-05] MEDS ORDERED: Ipratropium/Albuterol Neb 3 ML IH ONE (22:50)
[2017-07-05] MEDS ORDERED: methylPREDNISolone 125 MG/2 ML VIAL IVP ONE (22:50)
[2017-07-05 23:37] LABS: Basophils % 0.4 %; Eosinophils # 0.2 K/mcL (0.0-0.6); Eosinophils % 2.1 %; Hematocrit 41.9 % (37.5-50.1); Hemoglobin 13.6 g/dL (12.9-16.9); Immature Granulocytes % 0.3 % (0-4); Immature Platelets 3.1 % (1.1-6.1); Lymphocytes # 1.7 K/mcL (0.6-4.6); Lymphocytes % 21.5 %; Mean Corpuscular HGB Conc 32.5 g/dL (31.6-35.5); Mean Corpuscular Hemoglobin 29.1 pg (28.0-33.3); Mean Corpuscular Volume 89.5 fL (83.0-100.0); Mean Platelet Volume 9.5 fL (9.4-12.4); Monocytes # 0.6 K/mcL (0.0-1.3); Monocytes % 8.2 %; Neutrophils # 5.2 K/mcL (1.6-8.9); Platelet Count 185 K/mcL (140-400); Red Blood Count 4.68 M/mcL (4.19-5.50); Red Cell Distribution Width 12.9 % (11.5-14.5); Segmented Neutrophils % 67.5 %
[2017-07-06 00:11] LABS: BUN/Creatinine Ratio 18 (6-26); Blood Urea Nitrogen 14 mg/dL (8-26); Calcium 10.3 mg/dL (8.6-10.8); Carbon Dioxide 31 mEq/L (19-29); Chloride 98 mEq/L (98-109); Glucose 105 mg/dL (70-99); Osmolality,Calculated 289 (280-300); Sodium 139 mEq/L (136-145); eGFR For African Americans > 60 (> 60); eGFR For Non-African Americans > 60 (> 60)
--- NOTE | 2017-07-06 00:38 | Emergency Department Note ---
Disposition Clinical Impression: COPD exacerbation Disposition: Admitted As Inpatient Condition: Good [facility] Care Provider[facility] - SOB HPI - General Chief Complaint: ED Shortness of Breath/Dyspnea Stated Complaint: GER worse x 2 days Time Seen by Provider: 07/05/17 22:50 Source: EMS Mode of arrival: ambulatory Limitations: no limitations Nursing Notes Reviewed: Yes Vital Signs Reviewed: Yes - History of Present Illness Patient with COPD on 3 L nasal cannula at home. Increasing use of albuterol shortness of breath over the last 2 days. Patient has cough and congestion but has not been able to get anything up. Patient has not had fevers. Patient tried using nebulizer prior to arrival with unsuccessful results. Patient had significant improvement with DuoNeb by squad. Patient was initially placed on BiPAP secondary to increased rate of breathing as well as pursed lipped breathing. P - Related Data Home Medications Medication Instructions Recorded Confirmed Aspirin [Lo-Dose Aspirin EC] 81 mg PO DAILY 07/06/16 02/22/17 Baclofen [Lioresal] 10 mg PO TID 07/06/16 02/22/17 Dicyclomine [Bentyl] 20 mg PO QID PRN 07/06/16 02/22/17 Docusate [Colace] 200 mg PO BID PRN 07/06/16 02/22/17 Lactobacillus Acidophilus 1 cap PO DAILY 07/06/16 02/22/17 [Acidophilus] Melatonin [Melatin] 9 mg PO HS 07/06/16 02/22/17 hydrOXYzine HCl [Hydroxyzine HCl] 100 mg PO TID 07/06/16 02/22/17 Loratadine [Allergy Relief] 10 mg PO DAILY 09/22/16 02/22/17 Propranolol [Inderal] 10 mg PO BID 11/22/16 02/22/17 ARIPiprazole [Abilify] 10 mg PO DAILY 01/21/17 02/22/17 Acetaminophen [Tylenol] 650 mg PO Q6HR PRN 01/21/17 02/22/17 Naltrexone HCl [Revia] 50 mg PO HS 01/21/17 02/22/17 Oxybutynin [Ditropan] 5 mg PO TID 01/21/17 02/22/17 Previous Rx's Medication Instructions Recorded Nicotine Patch [Nicoderm] 14 mg TD DAILY #28 patch 02/07/17 Dextrose 50 % in Water (Syg) 25 ml IVP AD PRN 03/04/17 [Dextrose 50% (Syg)] Dextrose Gel [Gluctose] 15 gm PO ONCE PRN 03/04/17 Dextrose Gel [Gluctose] 30 gm PO ONCE PRN 03/04/17 Famotidine [Pepcid] 20 mg PO BID tab 03/04/17 Glucagon, Human Recombinant 1 mg IM ONCE PRN vial 03/04/17 [Glucagen] GuaiFENesin/Dextromethorphan 5 ml PO Q6HR PRN 03/04/17 [Robitussin/Dm] Heparin 5,000 unit SQ Q12HCO vial 03/04/17 Insulin DETEMIR [Levemir] 5 unit SQ HS 03/04/17 Insulin LISPRO [HumaLOG] 0 units SQ HS vial 03/04/17 Insulin LISPRO [HumaLOG] 0 units SQ TIDAC vial 03/04/17 Ipratropium/Albuterol Neb [Duoneb] 3 ml IH [id number] inh 03/04/17 LORazepam [Ativan] 1 mg PO Q4HR PRN tab 03/04/17 Naloxone [Narcan] 0.4 mg IVP Q2MIN PRN 03/04/17 predniSONE [PredniSONE] 10 mg PO DAILY 18 Days tab 03/04/17 Allergies Allergy/AdvReac Type Severity Reaction Status Date / Time haloperidol [From Haldol] AdvReac Muscle Pain Verified 07/05/17 22:56 [place] AdvReac Weakness Verified 07/05/17 22:56 Review of Systems: Constitutional: No fever Vision: No blurred vision ENT: No rhinorrhea Respiratory: Shortness of breath and cough that is nonproductive Allergic: No allergies : No blood in urine GI: No blood in stool Hematologic: No bruising Dermatologic: No skin rash Musculoskeletal: No pain in the extremities Neuro: No numbness of the extremities Past Medical History - Past Medical History Medical history: Reports: COPD, hepatitis, other Surgical history: Reports: cholecystectomy Psychiatric history: Reports: anxiety, bipolar, depression, schizophrenia - Social History Smoking Status: Former smoker Smokeless Tobacco Status: No Alcohol use: Reports: none Drug use: Reports: cocaine, IV Drug Use, other Physical Exam General: Acute respiratory distress Head: Normocephalic Atraumatic Eyes: PERRL, EOMI ENT: Airway patent, no stridor Neck: supple, no meningismus Chest: Decreased lung sounds bilaterally with associated wheezing and no rhonchi. Persed lip breathing and increased respiratory rate Cardiac: Regular rate and rhythm, no murmurs, rubs or gallops Abdomen: soft, nontender, nondistended; no guarding, rebound, or tenderness to percussion Musculoskeletal: Calves symmetric, nontender, no palpable cord Skin: No rash, normal skin tone Neuro: Alert and Oriented to person, place, and time; No focal deficit, CN 2-12 symmetric and intact - General General appearance: alert Course - Reevaluation(s) Reevaluation #1: Patient tolerated BiPAP extremely well. Patient had significant improvement after approximately 15 minutes. Patient will undergo further observation through admission. - Consultations Consultation #1: Discussed with hospitalist, patient accepted for admission. Vital Signs Temperature 99.2 F 07/05/17 22:53 Pulse Rate 136 07/05/17 22:53 Respiratory Rate 24 07/05/17 22:53 Blood Pressure 124/96 07/05/17 22:53 O2 Sat by Pulse Oximetry 97 07/05/17 22:53 Temperature 99.2 F 07/05/17 22:53 Pulse Rate 114 07/06/17 00:32 Respiratory Rate 20 07/06/17 00:32 Blood Pressure 127/77 07/06/17 00:32 O2 Sat by Pulse Oximetry 97 07/06/17 00:32 Oxygen Delivery Oxygen Delivery Nasal Cannula Shortness of Breath/Dyspnea - Lab Data Result diagrams: 07/05/17 23:11 07/05/17 23:11 Lab Results 07/05/17 07/05/17 07/05/17 Range/Units 23:11 23:11 23:11 WBC 7.7 (4.3-11.1) K/mcL RBC 4.68 (4.19-5.50) M/mcL Hgb 13.6 (12.9-16.9) g/dL Hct 41.9 (37.5-50.1) % MCV 89.5 (83.0-100.0) fL MCH 29.1 (28.0-33.3) pg MCHC 32.5 (31.6-35.5) g/dL RDW 12.9 (11.5-14.5) % Plt Count 185 (140-400) K/mcL MPV 9.5 (9.4-12.4) fL Immature Gran % 0.3 (0-4) % Seg Neutrophils % 67.5 % Lymphocytes % 21.5 % Monocytes % 8.2 % Eosinophils % 2.1 % Basophils % 0.4 % Neutrophils # 5.2 (1.6-8.9) K/mcL Lymphocytes # 1.7 (0.6-4.6) K/mcL Monocytes # 0.6 (0.0-1.3) K/mcL Eosinophils # 0.2 (0.0-0.6) K/mcL Basophils # 0.0 (0.0-0.2) K/mcL Immature Plt Fraction 3.1 (1.1-6.1) % Sodium 139 (136-145) mEq/L Potassium 4.0 (3.5-4.5) mEq/L Chloride 98 (98-109) mEq/L Carbon Dioxide 31 H (19-29) mEq/L BUN 14 (8-26) mg/dL Creatinine 0.77 (0.72-1.25) mg/dL Est GFR ( Amer) > 60 (> 60) Est GFR (Non-Af Amer) > 60 (> 60) BUN/Creatinine Ratio 18 (6-26) Glucose 105 H (70-99) mg/dL Calculated Osmolality 289 (280-300) Calcium 10.3 (8.6-10.8) mg/dL Troponin I 0.01 (0-0.03) ng/mL B-Natriuretic Peptide (0-100) pg/mL 07/05/ Range/Units 23:11 WBC (4.3-11.1) K/mcL RBC (4.19-5.50) M/mcL Hgb (12.9-16.9) g/dL Hct (37.5-50.1) % MCV (83.0-100.0) fL MCH (28.0-33.3) pg MCHC (31.6-35.5) g/dL RDW (11.5-14.5) % Plt Count (140-400) K/mcL MPV (9.4-12.4) fL Immature Gran % (0-4) % Seg Neutrophils % % Lymphocytes % % Monocytes % % Eosinophils % % Basophils % % Neutrophils # (1.6-8.9) K/mcL Lymphocytes # (0.6-4.6) K/mcL Monocytes # (0.0-1.3) K/mcL Eosinophils # (0.0-0.6) K/mcL Basophils # (0.0-0.2) K/mcL Immature Plt Fraction (1.1-6.1) % Sodium (136-145) mEq/L Potassium (3.5-4.5) mEq/L Chloride (98-109) mEq/L Carbon Dioxide (19-29) mEq/L BUN (8-26) mg/dL Creatinine (0.72-1.25) mg/dL Est GFR ( Amer) (> 60) Est GFR (Non-Af Amer) (> 60) BUN/Creatinine Ratio (6-26) Glucose (70-99) mg/dL Calculated Osmolality (280-300) Calcium (8.6-10.8) mg/dL Troponin I (0-0.03) ng/mL B-Natriuretic Peptide < 10 (0-100) pg/mL
[2017-07-06] MEDS ORDERED: Acetaminophen 325 MG TABLET PO PRN (00:46)
[2017-07-06] MEDS ORDERED: Ipratropium/Albuterol Neb 3 ML IH PRN (00:49)
[2017-07-06] MEDS ORDERED: Naloxone 0.4 MG/ML INJ IVP PRN (00:55)
--- NOTE | 2017-07-06 01:01 | Internal Med History&Physical ---
Date of Encounter: 07/06/17 Time of Encounter: 00:58 Assessment and Plan (1) COPD exacerbation Current visit: Yes Status: Acute duonebs, IV azithro, IV steroids pulse ox close monitoring tobacco cessation (2) Chronic hepatitis C Current visit: No Status: Chronic Qualifiers: Hepatic coma status: without hepatic coma Qualified Code(s): B18.2 - Chronic viral hepatitis C (3) Tobacco abuse Current visit: No Status: Chronic patch therapy Internal Medicine - H&P: HPI Chief complaint: SOB History of present illness: Mr. Sosa is a 61 year old male who presents with COPD exacerbation. He smokes 1 PPD, uses 2 L NC at baseline. He reports worsening a couple of days hx of SOB, CALDERÓN, gets winded walking from bedroom to door. Failed home nebulizer therapy with progressive worsening. No improving factors. Denies fever/chills. Reports cough that is productive of white/clear sputum. Denies muscle aches or sore throat EKG reviewed by self with rate 133 sinus tachy XR/XR chest 1V portable IMPRESSION: Stable chest without focal airspace disease and chronic changes as described. Past Med Surg Social Fam HX - Past Medical History Medical history: COPD, hepatitis, other Psychiatric history: anxiety, bipolar, depression, schizophrenia - Past Surgical History Surgical History: cholecystectomy - Social History Smoking Status: Former smoker Smokeless Tobacco Status: No Alcohol use: none Drug use: cocaine, IV Drug Use, other - Family History Mother Adopted: No Family Member Ethnicity: Non- Living Status: Hx Family Cardiac Disorders: Yes Hx Family Respiratory Disorders: Yes (dad emphezema) Hx Family Cancer: Yes (lung CA) Hx Family GI Disorders: No Hx Family Endocrine Disorder: Yes (DM) Hx Family Neuromuscular Disorders: No Hx Family Neurologic Disorders: No Hx Family HEENT Disorders: No Hx Family Autoimmune Disorders: No Father Adopted: No Family Member Ethnicity: Non- Living Status: Hx Family Cardiac Disorders: No Hx Family Respiratory Disorders: Yes Hx Family Cancer: Yes (Lung cancer) Hx Family GI Disorders: No Hx Family Endocrine Disorder: No Hx Family Neuromuscular Disorders: No Hx Family Neurologic Disorders: No Hx Family HEENT Disorders: No Hx Family Autoimmune Disorders: No Brother Family Member Ethnicity: Non- Living Status: Still Living Hx Family Respiratory Disorders: Yes (Emphysema) Sister Family Member Ethnicity: Non- Living Status: Still Living Internal Medicine - H&P: Meds Aspirin [Lo-Dose Aspirin EC] 81 mg PO DAILY 07/06/16 [History] Baclofen [Lioresal] 10 mg PO TID 07/06/16 [History] Dicyclomine [Bentyl] 20 mg PO QID PRN 07/06/16 [History] Docusate [Colace] 200 mg PO BID PRN 07/06/16 [History] Lactobacillus Acidophilus [Acidophilus] 1 cap PO DAILY 07/06/16 [History] Melatonin [Melatin] 9 mg PO HS 07/06/16 [History] hydrOXYzine HCl [Hydroxyzine HCl] 100 mg PO TID 07/06/16 [History] Loratadine [Allergy Relief] 10 mg PO DAILY 09/22/16 [History] Propranolol [Inderal] 10 mg PO BID 11/22/16 [History] ARIPiprazole [Abilify] 10 mg PO DAILY 01/21/17 [History] Acetaminophen [Tylenol] 650 mg PO Q6HR PRN 01/21/17 [History] Naltrexone HCl [Revia] 50 mg PO HS 01/21/17 [History] Oxybutynin [Ditropan] 5 mg PO TID 01/21/17 [History] Nicotine Patch [Nicoderm] 14 mg TD DAILY #28 patch 02/07/17 [Rx] Dextrose 50 % in Water (Syg) [Dextrose 50% (Syg)] 25 ml IVP AD PRN 03/04/17 [Rx] Dextrose Gel [Gluctose] 15 gm PO ONCE PRN 03/04/17 [Rx] Dextrose Gel [Gluctose] 30 gm PO ONCE PRN 03/04/17 [Rx] Famotidine [Pepcid] 20 mg PO BID tab 03/04/17 [Rx] Glucagon, Human Recombinant [Glucagen] 1 mg IM ONCE PRN vial 03/04/17 [Rx] GuaiFENesin/Dextromethorphan [Robitussin/Dm] 5 ml PO Q6HR PRN 03/04/17 [Rx] Heparin 5,000 unit SQ Q12HCO vial 03/04/17 [Rx] Insulin DETEMIR [Levemir] 5 unit SQ HS 03/04/17 [Rx] Insulin LISPRO [HumaLOG] 0 units SQ HS vial 03/04/17 [Rx] Insulin LISPRO [HumaLOG] 0 units SQ TIDAC vial 03/04/17 [Rx] Ipratropium/Albuterol Neb [Duoneb] 3 ml IH [id number] inh 03/04/17 [Rx] LORazepam [Ativan] 1 mg PO Q4HR PRN tab 03/04/17 [Rx] Naloxone [Narcan] 0.4 mg IVP Q2MIN PRN 03/04/17 [Rx] predniSONE [PredniSONE] 10 mg PO DAILY 18 Days tab 03/04/17 [Rx] 3 Allergy/AdvReac Type Severity Reaction Status Date / Time haloperidol [From Haldol] AdvReac Muscle Pain Verified 07/05/17 22:56 [place] AdvReac Weakness Verified 07/05/17 22:56 All Systems PM: A 10-system review of systems was performed and is negative for pertinent findings except as documented above in the HPI. Review of systems: ROS 14 point review of systems reviewed as best as possible given presentation. Pertinent positive or negative as per HPI or otherwise reviewed as negative - Constitutional Vitals: Temp Pulse Resp BP Pulse Ox 99.2 F 114 20 127/77 97 07/05/17 22:53 07/06/17 00:32 07/06/17 00:44 07/06/17 00:44 07/06/17 00:32 Exam: General - AAO x 3 Psych - Appropriate affect/speech. No agitation Eyes - ADAM. Eye lids intact. No scleral icterus Heart - Sinus. RRR. S1 and S2 present. No added HS/murmurs appreciated. No elevated JVD appreciated. Lung - Decrease air entry b/l, No crackles, Scant wheezes appreciated GI - Soft, non-tender. No hepatosplenomegaly/ascites. BS+ - No CVA/suprapubic tenderness or palpable bladder distension Skin - Intact. No rash/petechiae/ecchymosis. Warm extremities MSK - Joints with normal ROM. No joint swellings Internal Med - H&P Results - Labs CBC & Chem 7: 07/05/17 23:11 07/05/17 23:11
[2017-07-06] MEDS: Azithromycin 500 MG in D5% in Water 250 ML IVPB SCH (01:55)
[2017-07-06] MEDS: MethylPREDNISolone 40 MG/ML VIAL IVP SCH ×4 (06:29→23:57)
[2017-07-06] MEDS: *HR* Enoxaparin 40 MG/0.4 ML SYRINGE SQ SCH (06:30)
[2017-07-06] MEDS: Baclofen 10 MG TABLET PO SCH ×3 (08:39→23:55)
[2017-07-06] MEDS: ARIPiprazole 10 MG TABLET PO SCH (08:39)
[2017-07-06] MEDS: Aspirin Enteric Coated 81 MG Tablet PO SCH (08:40)
[2017-07-06] MEDS: Famotidine 20 MG TABLET PO SCH ×2 (08:40→17:43)
[2017-07-06] MEDS: Nicotine 21 MG PATCH.TD24 TD SCH (08:40)
[2017-07-06] MEDS ORDERED: Ipratropium/Albuterol Neb 3 ML IH SCH (09:00)
[2017-07-06] MEDS: Ipratropium/Albuterol Neb 3 ML IH SCH ×3 (10:28→22:01)
[2017-07-06] MEDS: Ondansetron 4 MG/2 ML VIAL IVP PRN (13:54)
--- NOTE | 2017-07-06 14:35 | Event Note ---
Date of Encounter: 07/06/17 Time of Encounter: 12:55 Patient is a 61y/o male admitted for acute respiratory distress secondary to COPD exacerbation Pt seen and examined at bedside. Currently on bipap support and states he feels short of breath without the bipap support noted to be tachycardic but denies any chest pain or discomfort awaiting verification of home medications continue systemic steroids, bronchodilator support, bipap support, abx ABG as needed Labs and vitals reviewed
[2017-07-06] MEDS ORDERED: Ondansetron ODT 4 MG TAB.RAPDIS SL PRN (16:44)
[2017-07-06] MEDS: OLANZapine 10 MG TAB.RAPDIS PO SCH (20:28)
[2017-07-06] MEDS ORDERED: NON-FORMULARY MEDICATION 1 EACH EACH (Ranitidine Hcl [Acid Reducer] 150 MG) PO SCH (21:00)
[2017-07-07] MEDS: Azithromycin 500 MG in D5% in Water 250 ML IVPB SCH
[2017-07-07] MEDS: Ipratropium/Albuterol Neb 3 ML IH SCH ×4 (04:04→22:51)
[2017-07-07] MEDS: MethylPREDNISolone 40 MG/ML VIAL IVP SCH ×3 (05:37→20:44)
[2017-07-07] MEDS: *HR* Enoxaparin 40 MG/0.4 ML SYRINGE SQ SCH (05:38)
[2017-07-07 06:59] LABS: Immature Granulocytes % 0.8 % (0-4); Mean Corpuscular HGB Conc 32.5 g/dL (31.6-35.5); Mean Corpuscular Hemoglobin 28.8 pg (28.0-33.3); Mean Corpuscular Volume 88.5 fL (83.0-100.0); Mean Platelet Volume 10.2 fL (9.4-12.4); Monocytes # 0.5 K/mcL (0.0-1.3); Monocytes % 5.8 %; Neutrophils # 6.9 K/mcL (1.6-8.9); Platelet Count 162 K/mcL (140-400); Red Blood Count 4.52 M/mcL (4.19-5.50); Red Cell Distribution Width 12.5 % (11.5-14.5); Segmented Neutrophils % 81.4 %
[2017-07-07 07:05] LABS: BUN/Creatinine Ratio 40 (6-26); Blood Urea Nitrogen 28 mg/dL (8-26); Calcium 9.6 mg/dL (8.6-10.8); Carbon Dioxide 37 mEq/L (19-29); Chloride 98 mEq/L (98-109); Glucose 145 mg/dL (70-99); Magnesium 2.2 mg/dL (1.6-2.6); Osmolality,Calculated 296 (280-300); Phosphorous 2.9 mg/dL (2.3-4.7); Potassium 4.8 mEq/L (3.5-4.5); Sodium 139 mEq/L (136-145); eGFR For African Americans > 60 (> 60); eGFR For Non-African Americans > 60 (> 60)
[2017-07-07] MEDS: OLANZapine 5 MG TAB.RAPDIS PO SCH (08:07)
[2017-07-07] MEDS: Ondansetron 4 MG/2 ML VIAL IVP PRN ×2 (08:07→15:07)
[2017-07-07] MEDS: Baclofen 10 MG TABLET PO SCH ×3 (08:09→20:45)
[2017-07-07] MEDS: Aspirin Enteric Coated 81 MG Tablet PO SCH (08:09)
[2017-07-07] MEDS: Famotidine 20 MG TABLET PO SCH ×2 (08:09→15:04)
[2017-07-07] MEDS: ARIPiprazole 10 MG TABLET PO SCH (08:10)
[2017-07-07] MEDS: Nicotine 21 MG PATCH.TD24 TD SCH (08:10)
[2017-07-07] MEDS ORDERED: Nicotine 21 MG PATCH.TD24 TD PRN (10:19)
[2017-07-07] MEDS ORDERED: Benzonatate 100 MG CAPSULE PO PRN (10:22)
--- NOTE | 2017-07-07 10:25 | Internal Med Progress Note ---
Date of Encounter: 07/07/17 Time of Encounter: 10:21 - Assessment and plan (1) Acute respiratory failure with hypoxia Current Visit: No Status: Acute Assessment and plan: Secondary to COPD exacerbation continue systemic steroids (Solumedrol 40mg IV q8h) Bronchodilator support O2 supplementation monitor O2 sat, goal O2 sat: 88-92% bipap as needed during the day bipap at bedtime continue Azithromycin (2) Acute exacerbation of chronic obstructive airways disease Current Visit: No Status: Acute Assessment and plan: as listed above (3) Tobacco abuse Current Visit: No Status: Chronic Assessment and plan: smoking cessation counseling provided nicotine supplementation therapy provided (4) Anxiety Current Visit: No Status: Chronic Assessment and plan: continue home meds (5) Bipolar disease, chronic Current Visit: No Status: Chronic Assessment and plan: continue home meds (6) DVT prophylaxis Current Visit: No Status: Acute Assessment and plan: Lovenox SQ - Subjective Interval history: Patient seen and examined at bedside. Resting in bed and saturating well on 3.5L NC (on 2.5L at home), reports of improvement in his breathing compared to previous day however still noted to have significant expiratory wheezing diffusely with poor inspiratory effort. - Constitutional Vitals: Temp Pulse Resp BP Pulse Ox 98.2 F 94 18 117/89 96 07/07/17 07:31 07/07/17 07:31 07/07/17 10:19 07/07/17 07:31 07/07/17 10:19 General appearance: Present: cooperative, A&O X 3, no acute distress, answers questions appropriately - Head Head exam: Present: atraumatic, normocephalic - Eye Eye exam: Present: conjuntiva pink, sclera anicteric - Respiratory Respiratory exam: Absent: accessory muscle use, tachypnea (diffuse expiratory wheezing bilaterally with poor inspiratory effort ) - Cardiovascular Cardiovascular exam: Present: RRR, +S1, +S2 - GI/Abdominal GI/Abdominal exam: Present: normal bowel sounds, soft, no peritoneal signs. Absent: distended, tenderness - Extremities Exam Extremities exam: Present: warm, radial pulses palpable and symmetrical. Absent : calf tenderness, pedal edema - Neurological Exam Neurological exam: Present: alert, oriented X3 Internal Medicine: Result - Labs CBC & Chem 7: 07/07/17 06:07 07/07/17 06:07 Labs: Short CBC 07/07/17 Range/Units 06:07 WBC 8.5 (4.3-11.1) K/mcL Hgb 13.0 (12.9-16.9) g/dL Hct 40.0 (37.5-50.1) % Plt Count 162 (140-400) K/mcL Neutrophils # 6.9 (1.6-8.9) K/mcL BMP 07/07/17 06:07 Sodium 139 Potassium 4.8 H Chloride 98 Carbon Dioxide 37 H BUN 28 H D Creatinine 0.70 L Glucose 145 H Calcium 9.6 Consult Discharge Plan - Plan [facility]errals: [facility] [Primary Care Provider] -
--- NOTE | 2017-07-07 10:41 | Electrocardiograph Report ---
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
[2017-07-07] MEDS: hydrOXYzine pamoate 25 MG CAPSULE PO PRN ×2 (10:51→20:52)
[2017-07-07] MEDS: OLANZapine 10 MG TAB.RAPDIS PO SCH (20:45)
[2017-07-08] MEDS: Azithromycin 500 MG in D5% in Water 250 ML IVPB SCH (00:13)
[2017-07-08 03:42] LABS: Basophils % 0.1 %; Hemoglobin 13.8 g/dL (12.9-16.9); Immature Granulocytes % 0.6 % (0-4); Lymphocytes % 10.4 %; Mean Corpuscular HGB Conc 32.1 g/dL (31.6-35.5); Mean Corpuscular Hemoglobin 28.6 pg (28.0-33.3); Mean Platelet Volume 9.9 fL (9.4-12.4); Monocytes # 0.5 K/mcL (0.0-1.3); Neutrophils # 8.1 K/mcL (1.6-8.9); Platelet Count 165 K/mcL (140-400); Red Blood Count 4.83 M/mcL (4.19-5.50); Red Cell Distribution Width 12.3 % (11.5-14.5); Segmented Neutrophils % 83.9 %
[2017-07-08 04:00] LABS: BUN/Creatinine Ratio 45 (6-26); Blood Urea Nitrogen 35 mg/dL (8-26); Calcium 9.4 mg/dL (8.6-10.8); Carbon Dioxide 35 mEq/L (19-29); Chloride 97 mEq/L (98-109); Glucose 144 mg/dL (70-99); Magnesium 2.2 mg/dL (1.6-2.6); Osmolality,Calculated 299 (280-300); Phosphorous 2.8 mg/dL (2.3-4.7); Potassium 4.6 mEq/L (3.5-4.5); Sodium 139 mEq/L (136-145); eGFR For African Americans > 60 (> 60); eGFR For Non-African Americans > 60 (> 60)
[2017-07-08] MEDS: Ipratropium/Albuterol Neb 3 ML IH SCH ×4 (04:25→22:29)
[2017-07-08] MEDS: MethylPREDNISolone 40 MG/ML VIAL IVP SCH (06:16)
[2017-07-08] MEDS: *HR* Enoxaparin 40 MG/0.4 ML SYRINGE SQ SCH (06:17)
[2017-07-08] MEDS: OLANZapine 5 MG TAB.RAPDIS PO SCH (07:50)
[2017-07-08] MEDS: Baclofen 10 MG TABLET PO SCH ×3 (07:50→22:36)
[2017-07-08] MEDS: ARIPiprazole 10 MG TABLET PO SCH (07:50)
[2017-07-08] MEDS: Aspirin Enteric Coated 81 MG Tablet PO SCH (07:50)
[2017-07-08] MEDS: Famotidine 20 MG TABLET PO SCH ×2 (07:50→14:48)
[2017-07-08] MEDS: hydrOXYzine pamoate 25 MG CAPSULE PO PRN ×2 (07:52→22:36)
[2017-07-08] MEDS: Sennosides/Docusate Sodium TABLET PO SCH ×2 (10:22→22:36)
--- NOTE | 2017-07-08 10:42 | Internal Med Progress Note ---
Date of Encounter: 07/08/17 Time of Encounter: 10:15 - Assessment and plan (1) Acute respiratory failure with hypoxia Current Visit: No Status: Acute Assessment and plan: Secondary to COPD exacerbation continue systemic steroids (Solumedrol 40mg IV q12h) Bronchodilator support O2 supplementation monitor O2 sat, goal O2 sat: 88-92% bipap as needed during the day bipap at bedtime continue Azithromycin (2) Acute exacerbation of chronic obstructive airways disease Current Visit: No Status: Acute Assessment and plan: as listed above (3) Tobacco abuse Current Visit: No Status: Chronic Assessment and plan: smoking cessation counseling provided nicotine supplementation therapy provided (4) Anxiety Current Visit: No Status: Chronic Assessment and plan: continue home meds (5) Bipolar disease, chronic Current Visit: No Status: Chronic Assessment and plan: continue home meds (6) DVT prophylaxis Current Visit: No Status: Acute Assessment and plan: Lovenox SQ - Subjective Interval history: Patient seen and examined at bedside. Resting in bed and reports of feeling better compared to previous day. Noted to be noncompliant with bipap support over night. Currently saturating well on 2.5L of NC. Continues to have expiratory wheezing bilaterally however improved inspiratory effort. Will d/c IV steroids after tonight's dose and start PO Prednisone in am. - Constitutional Vitals: Temp Pulse Resp BP Pulse Ox 98.2 F 89 14 117/85 95 07/08/17 07:10 07/08/17 07:10 07/08/17 07:10 07/08/17 07:10 07/08/17 08:07 General appearance: Present: cooperative, A&O X 3, no acute distress, answers questions appropriately - Head Head exam: Present: atraumatic, normocephalic - Eye Eye exam: Present: conjuntiva pink, sclera anicteric - Respiratory Respiratory exam: Present: wheezes (bilateral expiratory wheezing, equal air entry bilaterally). Absent: accessory muscle use, rales, respiratory distress - Cardiovascular Cardiovascular exam: Present: RRR, +S1, +S2. Absent: diastolic murmur, gallop, rubs, systolic murmur - GI/Abdominal GI/Abdominal exam: Present: normal bowel sounds, soft, no peritoneal signs. Absent: distended, tenderness - Extremities Exam Extremities exam: Present: warm, radial pulses palpable and symmetrical. Absent : calf tenderness, cyanotic, pedal edema - Neurological Exam Neurological exam: Present: alert, oriented X3 Internal Medicine: Result - Labs CBC & Chem 7: 07/08/17 03:03 07/08/17 03:03 Labs: Short CBC 07/08/17 Range/Units 03:03 WBC 9.7 (4.3-11.1) K/mcL Hgb 13.8 (12.9-16.9) g/dL Hct 43.0 (37.5-50.1) % Plt Count 165 (140-400) K/mcL Neutrophils # 8.1 (1.6-8.9) K/mcL BMP 07/08/17 03:03 Sodium 139 Potassium 4.6 H Chloride 97 L Carbon Dioxide 35 H BUN 35 H Creatinine 0.77 Glucose 144 H Calcium 9.4 Consult Discharge Plan - Plan Referrals: [facility] [Primary Care Provider] -
[2017-07-08] MEDS: Nicotine 21 MG PATCH.TD24 TD SCH (15:09)
[2017-07-08] MEDS ORDERED: MethylPREDNISolone 40 MG/ML VIAL IVP SCH (18:00)
[2017-07-08] MEDS: OLANZapine 10 MG TAB.RAPDIS PO SCH (22:35)
[2017-07-08] MEDS: Azithromycin 250 MG TABLET PO SCH (22:36)
[2017-07-09 04:17] LABS: Basophils % 0.1 %; Hematocrit 39.6 % (37.5-50.1); Hemoglobin 12.9 g/dL (12.9-16.9); Immature Granulocytes % 0.5 % (0-4); Lymphocytes # 1.6 K/mcL (0.6-4.6); Lymphocytes % 18.9 %; Mean Corpuscular HGB Conc 32.6 g/dL (31.6-35.5); Mean Corpuscular Hemoglobin 28.9 pg (28.0-33.3); Mean Corpuscular Volume 88.6 fL (83.0-100.0); Mean Platelet Volume 9.3 fL (9.4-12.4); Monocytes # 0.6 K/mcL (0.0-1.3); Monocytes % 7.5 %; Platelet Count 144 K/mcL (140-400); Red Blood Count 4.47 M/mcL (4.19-5.50); Red Cell Distribution Width 12.4 % (11.5-14.5)
[2017-07-09 04:38] LABS: BUN/Creatinine Ratio 49 (6-26); Blood Urea Nitrogen 30 mg/dL (8-23); Calcium 8.8 mg/dL (8.6-10.3); Carbon Dioxide 37 mEq/L (23-29); Chloride 101 mEq/L (98-107); Glucose 126 mg/dL (70-105); Magnesium 2.1 mg/dL (1.6-2.6); Osmolality,Calculated 294 (280-300); Phosphorous 3.4 mg/dL (2.7-4.5); Potassium 4.1 mEq/L (3.5-5.1); Sodium 138 mEq/L (136-145); eGFR For African Americans > 60 (> 60); eGFR For Non-African Americans > 60 (> 60)
[2017-07-09] MEDS: Ipratropium/Albuterol Neb 3 ML IH SCH ×4 (04:56→23:40)
[2017-07-09] MEDS: *HR* Enoxaparin 40 MG/0.4 ML SYRINGE SQ SCH (06:21)
[2017-07-09] MEDS: Nicotine 21 MG PATCH.TD24 TD SCH (07:53)
[2017-07-09] MEDS: Aspirin Enteric Coated 81 MG Tablet PO SCH (07:54)
[2017-07-09] MEDS: Sennosides/Docusate Sodium TABLET PO SCH ×2 (07:54→21:22)
[2017-07-09] MEDS: Baclofen 10 MG TABLET PO SCH (07:54)
[2017-07-09] MEDS: OLANZapine 5 MG TAB.RAPDIS PO SCH (07:54)
[2017-07-09] MEDS: ARIPiprazole 10 MG TABLET PO SCH (07:54)
[2017-07-09] MEDS ORDERED: predniSONE 20 MG TABLET PO SCH (09:00)
--- NOTE | 2017-07-09 09:25 | Internal Med Progress Note ---
Date of Encounter: 07/09/17 Time of Encounter: 09:10 - Assessment and plan (1) Acute respiratory failure with hypoxia Current Visit: No Status: Acute Assessment and plan: Secondary to COPD exacerbation continue systemic steroids (Solumedrol 40mg IV q12h) Bronchodilator support O2 supplementation monitor O2 sat, goal O2 sat: 88-92% bipap at bedtime, pt continues to refuse continue Azithromycin (2) Acute exacerbation of chronic obstructive airways disease Current Visit: No Status: Acute Assessment and plan: as listed above (3) Tobacco abuse Current Visit: No Status: Chronic Assessment and plan: smoking cessation counseling provided nicotine supplementation therapy provided (4) Anxiety Current Visit: No Status: Chronic Assessment and plan: continue home meds (5) Bipolar disease, chronic Current Visit: No Status: Chronic Assessment and plan: continue home meds (6) DVT prophylaxis Current Visit: No Status: Acute Assessment and plan: Lovenox SQ - Subjective Interval history: Patient seen and examined at bedside. Sitting in bed, eating breakfast, reports of feeling better compared to previous day however continues to refuse bipap support which is reflective with his worsening hypercapnia. Continues to have b/ l expiratory wheezing. Will continue another day of IV steroids. Pt will likely need a slow steroid taper upon discharge. tentative d/c in am if continues to improve clinically - Constitutional Vitals: Temp Pulse Resp BP Pulse Ox 97.6 F 70 20 115/82 99 07/09/17 06:52 07/09/17 06:52 07/09/17 06:52 07/09/17 06:52 07/09/17 07:45 General appearance: Present: cooperative, A&O X 3, no acute distress, answers questions appropriately - Head Head exam: Present: atraumatic, normocephalic - Eye Eye exam: Present: conjuntiva pink, sclera anicteric - Respiratory Respiratory exam: Present: wheezes (b/l expiratory wheezing). Absent: accessory muscle use, respiratory distress - Cardiovascular Cardiovascular exam: Present: RRR, +S1, +S2. Absent: diastolic murmur, gallop, rubs, systolic murmur - GI/Abdominal GI/Abdominal exam: Present: normal bowel sounds, soft, no peritoneal signs. Absent: distended, tenderness - Extremities Exam Extremities exam: Present: warm, radial pulses palpable and symmetrical. Absent : calf tenderness, pedal edema - Neurological Exam Neurological exam: Present: alert, oriented X3 - Psychiatric Psychiatric exam: Present: normal affect, normal mood Internal Medicine: Result - Labs CBC & Chem 7: 07/09/17 04:03 07/09/17 04:03 Labs: Short CBC 07/09/17 Range/Units 04:03 WBC 8.2 (4.3-11.1) K/mcL Hgb 12.9 (12.9-16.9) g/dL Hct 39.6 (37.5-50.1) % Plt Count 144 (140-400) K/mcL Neutrophils # 6.0 (1.6-8.9) K/mcL BMP 07/09/17 04:03 Sodium 138 Potassium 4.1 Chloride 101 Carbon Dioxide 37 H BUN 30 H Creatinine 0.61 L Glucose 126 H Calcium 8.8 Consult Discharge Plan - Plan [facility]errals: [facility] [Primary Care Provider] -
--- NOTE | 2017-07-09 12:23 | Electrocardiograph Report ---
[place] [id number] Test Date: 2017-07-08 Pat Name: Pa Sosa Department: 111 Room: 2N0 Gender: M Area Supervisor: ANA : 1955 Requested By: Marge Harden Order Number: [id number] Reading MD: Jose Antonio Parkinson DO Measurements Intervals [place] Rate: 77 P: 83 PA: 168 QRS: 38 QRSD: 98 T: 70 QT: 330 QTc: 361 Interpretive Statements SINUS RHYTHM WITH SINUS ARRHYTHMIA INDETERMINATE AXIS Electronically Signed On 07-09-2017 12:21:20 EST by Jose Antonio Parkinson DO
[2017-07-09] MEDS ORDERED: MethylPREDNISolone 40 MG/ML VIAL IVP SCH (18:00)
[2017-07-09] MEDS: OLANZapine 10 MG TAB.RAPDIS PO SCH (21:22)
[2017-07-09] MEDS: Azithromycin 250 MG TABLET PO SCH (21:23)
[2017-07-10 03:38] LABS: Basophils % 0.1 %; Hematocrit 38.8 % (37.5-50.1); Hemoglobin 12.7 g/dL (12.9-16.9); Immature Granulocytes % 0.3 % (0-4); Lymphocytes # 1.3 K/mcL (0.6-4.6); Lymphocytes % 18.1 %; Mean Corpuscular HGB Conc 32.7 g/dL (31.6-35.5); Mean Corpuscular Hemoglobin 28.8 pg (28.0-33.3); Monocytes # 0.7 K/mcL (0.0-1.3); Neutrophils # 5.3 K/mcL (1.6-8.9); Platelet Count 152 K/mcL (140-400); Red Blood Count 4.41 M/mcL (4.19-5.50); Red Cell Distribution Width 12.3 % (11.5-14.5); Segmented Neutrophils % 72.5 %
[2017-07-10 04:10] LABS: BUN/Creatinine Ratio 42 (6-26); Blood Urea Nitrogen 23 mg/dL (8-23); Calcium 8.5 mg/dL (8.6-10.3); Carbon Dioxide 36 mEq/L (23-29); Chloride 99 mEq/L (98-107); Glucose 160 mg/dL (70-105); Magnesium 2.1 mg/dL (1.6-2.6); Osmolality,Calculated 297 (280-300); Phosphorous 3.2 mg/dL (2.7-4.5); Potassium 3.8 mEq/L (3.5-5.1); Sodium 140 mEq/L (136-145); eGFR For African Americans > 60 (> 60); eGFR For Non-African Americans > 60 (> 60)
[2017-07-10] MEDS: Ipratropium/Albuterol Neb 3 ML IH SCH ×4 (05:00→22:51)
[2017-07-10] MEDS: *HR* Enoxaparin 40 MG/0.4 ML SYRINGE SQ SCH (05:47)
[2017-07-10] MEDS ORDERED: predniSONE 20 MG TABLET PO SCH (09:00)
[2017-07-10] MEDS: OLANZapine 5 MG TAB.RAPDIS PO SCH (10:11)
[2017-07-10] MEDS: Aspirin Enteric Coated 81 MG Tablet PO SCH (10:11)
[2017-07-10] MEDS: Sennosides/Docusate Sodium TABLET PO SCH ×2 (10:12→21:06)
[2017-07-10] MEDS: Nicotine 21 MG PATCH.TD24 TD SCH (10:12)
[2017-07-10] MEDS: hydrOXYzine pamoate 25 MG CAPSULE PO PRN ×2 (10:15→22:05)
--- NOTE | 2017-07-10 10:49 | Internal Med Progress Note ---
Date of Encounter: 07/10/17 Time of Encounter: 10:46 - Assessment and plan (1) Acute respiratory failure with hypoxia Current Visit: No Status: Acute Assessment and plan: Secondary to COPD exacerbation continue systemic steroids (Solumedrol 40mg IV q12h) Bronchodilator support O2 supplementation monitor O2 sat, goal O2 sat: 88-92% bipap at bedtime and as needed continue Azithromycin (2) Acute exacerbation of chronic obstructive airways disease Current Visit: No Status: Acute Assessment and plan: as listed above (3) Tobacco abuse Current Visit: No Status: Chronic Assessment and plan: smoking cessation counseling provided nicotine supplementation therapy provided (4) Anxiety Current Visit: No Status: Chronic Assessment and plan: continue home meds (5) Bipolar disease, chronic Current Visit: No Status: Chronic Assessment and plan: continue home meds (6) DVT prophylaxis Current Visit: No Status: Acute Assessment and plan: Lovenox SQ - Subjective Interval history: Patient seen and examined at bedside. Noted to be extremely anxious and states he is having difficulty breathing. As per nursing report, pt desaturated to 70s after he returned from the bathroom while being on oxygen. Pt states he feels comfortable while resting but even with the minimal walk to the bathroom and back is making him severely short of breath. Pt noted to have worsening hypercapnia, and this time is agreeing to bipap support - Constitutional Vitals: Temp Pulse Resp BP Pulse Ox 97.8 F 92 18 130/88 98 07/10/17 07:35 07/10/17 07:35 07/10/17 07:35 07/10/17 07:35 07/10/17 10:08 General appearance: Present: cooperative, A&O X 3, no acute distress, answers questions appropriately - Head Head exam: Present: atraumatic, normocephalic - Eye Eye exam: Present: conjuntiva pink, sclera anicteric - Respiratory Respiratory exam: Present: wheezes (bilateral expiratory wheezing). Absent: respiratory distress - Cardiovascular Cardiovascular exam: Present: RRR, +S1, +S2 - GI/Abdominal GI/Abdominal exam: Present: normal bowel sounds, soft, no peritoneal signs. Absent: distended, tenderness - Extremities Exam Extremities exam: Present: warm, radial pulses palpable and symmetrical. Absent : calf tenderness, pedal edema - Neurological Exam Neurological exam: Present: alert, oriented X3 Internal Medicine: Result - Labs CBC & Chem 7: 07/10/17 02:57 07/10/17 02:57 Labs: Short CBC 07/10/17 Range/Units 02:57 WBC 7.3 (4.3-11.1) K/mcL Hgb 12.7 L (12.9-16.9) g/dL Hct 38.8 (37.5-50.1) % Plt Count 152 (140-400) K/mcL Neutrophils # 5.3 (1.6-8.9) K/mcL BMP 07/10/17 02:57 Sodium 140 Potassium 3.8 Chloride 99 Carbon Dioxide 36 H BUN 23 Creatinine 0.55 L Glucose 160 H Calcium 8.5 L Consult Discharge Plan - Plan Referrals: KVNG,PCP [Primary Care Provider] - 07/23/17 8:45 am
[2017-07-10] MEDS ORDERED: *HR* LORazepam 2 MG/ML VIAL IVP ONE (11:58)
[2017-07-10] MEDS: MethylPREDNISolone 40 MG/ML VIAL IVP SCH (18:42)
[2017-07-10] MEDS: OLANZapine 10 MG TAB.RAPDIS PO SCH (21:07)
[2017-07-10] MEDS: Azithromycin 250 MG TABLET PO SCH (21:07)
[2017-07-11] MEDS: Ipratropium/Albuterol Neb 3 ML IH SCH ×2 (03:54→10:19)
[2017-07-11 04:00] LABS: Hematocrit 37.6 % (37.5-50.1); Hemoglobin 12.6 g/dL (12.9-16.9); Immature Granulocytes % 0.9 % (0-4); Immature Platelets 3.4 % (1.1-6.1); Lymphocytes # 1.1 K/mcL (0.6-4.6); Mean Corpuscular HGB Conc 33.5 g/dL (31.6-35.5); Mean Corpuscular Hemoglobin 29.2 pg (28.0-33.3); Mean Corpuscular Volume 87.2 fL (83.0-100.0); Monocytes # 0.6 K/mcL (0.0-1.3); Monocytes % 8.4 %; Neutrophils # 4.9 K/mcL (1.6-8.9); Platelet Count 144 K/mcL (140-400); Red Blood Count 4.31 M/mcL (4.19-5.50); Red Cell Distribution Width 12.2 % (11.5-14.5); Segmented Neutrophils % 74.7 %
[2017-07-11 04:16] LABS: BUN/Creatinine Ratio 38 (6-26); Blood Urea Nitrogen 22 mg/dL (8-23); Calcium 8.5 mg/dL (8.6-10.3); Carbon Dioxide 35 mEq/L (23-29); Chloride 99 mEq/L (98-107); Glucose 203 mg/dL (70-105); Magnesium 2.1 mg/dL (1.6-2.6); Osmolality,Calculated 291 (280-300); Potassium 3.7 mEq/L (3.5-5.1); Sodium 136 mEq/L (136-145); eGFR For African Americans > 60 (> 60); eGFR For Non-African Americans > 60 (> 60)
[2017-07-11] MEDS: OLANZapine 5 MG TAB.RAPDIS PO SCH (07:38)
[2017-07-11] MEDS: Aspirin Enteric Coated 81 MG Tablet PO SCH (07:38)
[2017-07-11] MEDS: Sennosides/Docusate Sodium TABLET PO SCH (07:38)
[2017-07-11] MEDS: Nicotine 21 MG PATCH.TD24 TD SCH (07:38)
[2017-07-11] MEDS: hydrOXYzine pamoate 25 MG CAPSULE PO PRN (07:40)
[2017-07-11] MEDS: *HR* Enoxaparin 40 MG/0.4 ML SYRINGE SQ SCH (08:34)
[2017-07-11] MEDS: MethylPREDNISolone 40 MG/ML VIAL IVP SCH (08:35)
[2017-07-11 11:23] VITALS: BP 145/90
--- NOTE | 2017-07-11 12:27 | Discharge Summary ---
Date of Encounter: 07/11/17 Time of Encounter: 11:45 - Discharge Diagnosis (1) Acute respiratory failure with hypoxia Priority: Primary Status: Acute (2) Acute exacerbation of chronic obstructive airways disease Priority: Primary Status: Acute (3) Tobacco abuse Priority: Secondary Status: Chronic (4) Anxiety Priority: Secondary Status: Chronic (5) Bipolar disease, chronic Priority: Secondary Status: Chronic (6) DVT prophylaxis Priority: Secondary Status: Acute - Discharge Medications Prescriptions: predniSONE [PredniSONE] 60 mg PO DAILY #3 tablet Home Medications: Acetaminophen [Non-Aspirin] 975 mg PO BID PRN 07/07/17 [History] Albuterol Sulfate [Ventolin Hfa] 2 puff IH Q6H PRN 07/07/17 [History] Bisacodyl [Woman's Laxative] 5 - 10 mg PO DAILY PRN 07/07/17 [History] Budesonide/Formoterol 160/4.5 [Symbicort 160/4.5] 2 puff IH BID 07/07/17 [ History] Carbamide Peroxide [Ear Drops] 4 drop BOTH EARS DAILY 07/07/17 [History] Docusate [Colace] 100 mg PO BID 07/07/17 [History] Ipratropium/Albuterol Neb [Duoneb] 3 ml IH Q6H PRN 07/07/17 [History] Naloxone HCl [Narcan] 4 mg NS ONCE PRN 07/07/17 [History] Naltrexone HCl [Revia] 50 mg PO HS 07/07/17 [History] Nicotine Patch [Nicoderm] 21 mg TD DAILY 07/07/17 [History] Nicotine Polacrilex [Nicotine Lozenge] 2 mg BC Q4H 07/07/17 [History] OLANZapine [Zyprexa] 5 mg PO DAILY 07/07/17 [History] Omeprazole [PriLOSEC] 20 mg PO DAILY 07/07/17 [History] Ondansetron HCl [Zofran] 4 mg PO TID PRN 07/07/17 [History] Polyethylene Glycol 3350 [MiraLAX] 17 gm PO DAILY 07/07/17 [History] Sildenafil Citrate [Viagra] 50 mg PO ONCE PRN 07/07/17 [History] hydrOXYzine HCl [Hydroxyzine HCl] 50 mg PO TID 07/07/17 [History] OLANZapine [Zyprexa] 10 mg PO HS 07/08/17 [History] Azithromycin [Zithromax] 500 mg PO Q24H tablet 07/11/17 [Rx] predniSONE [PredniSONE] 60 mg PO DAILY #3 tablet 07/11/17 [Rx] Allergies/Adverse Reactions: 3 Allergy/AdvReac Type Severity Reaction Status Date / Time haloperidol [From Haldol] AdvReac Muscle Pain Verified 07/05/17 22:56 [place] AdvReac Weakness Verified 07/05/17 22:56 Date of admission: 07/06/17 00:51 Primary care physician: PCP MS Discharging clinician: Marge Harden Anticipated date of discharge: 07/11/17 - Patient Status Disposition: Home, Self-Care Condition: Good Functional capacity at discharge: independent ambulation Overall status at discharge: patient is back to baseline - Discharge Instructions Follow Up With: Luc Desai MD [Partnered Physician] - (office will call patient at home with appointment date and time) MS,PCP [Primary Care Provider] - 07/23/17 8:45 am Forms: ED Satisfaction Letter Additional Instructions: Please follow-up with your primary care physician within 5 days after your discharge from the hospital. Please follow-up with pulmonology within 1-2 weeks after your discharge from the hospital. Please continue oral steroid taper as prescribed. Please continue oral antibiotics as prescribed. Your prescriptions have been called into [facility], and will receive them before your discharge. Resume all other home medications as prescribed by your primary care physician - Diet and Activity Activity: increase activity as tolerated, wear oxygen at all times, wear oxygen at night Diet: low fat, low cholesterol, low salt diet Hospital course: Mr. Sosa is a 61 year old male with past medical history of COPD on long-term oxygen therapy, bipolar disorder, anxiety, depression, schizophrenia who was admitted for acute respiratory distress secondary to COPD exacerbation. Patient reported of being an every day smoker and still smoking 1 pack per day. He was started on IV steroids, bronchodilator support, antibiotics, BiPAP support to which he responded appropriately. He was slowly tapered down to oral steroids, however did not improve due to which he required longer duration of IV steroid therapy. At this time he is back to his baseline home oxygenation , ambulating well without any dyspnea. He will be discharged to home on a long steroid taper. He is to follow-up with primary care physician and pulmonology after discharge. Patient is medically stable and will be discharged home today. Extensive smoking cessation counseling was provided throughout the course of the hospitalization. - Time Spent with Patient Total time spent providing and/or coordinating discharge services: Greater than 30 minutes - Constitutional Vitals: Temp Pulse Resp BP Pulse Ox 98.2 F 95 14 145/90 94 07/11/17 11:17 07/11/17 11:17 07/11/17 11:17 07/11/17 11:07/11/17 11:17 General appearance: Present: cooperative, A&O X 3, no acute distress, answers questions appropriately - Head Head exam: Present: atraumatic, normocephalic - Eye Eye exam: Present: conjuntiva pink, sclera anicteric - Respiratory Respiratory exam: Absent: respiratory distress Additional comments: Equal air entry bilaterally - Cardiovascular Cardiovascular exam: Present: RRR, +S1, +S2. Absent: diastolic murmur, gallop, rubs, systolic murmur - GI/Abdominal GI/Abdominal exam: Present: normal bowel sounds, soft, no peritoneal signs. Absent: distended, tenderness - Extremities Exam Extremities exam: Present: warm, radial pulses palpable and symmetrical. Absent : calf tenderness, pedal edema - Neurological Exam Neurological exam: Present: alert, oriented X3
[2017-07-11] MEDS ORDERED: FLUARIX QUAD 2017-18 36MOS UP/PF 0.5 ML SYRINGE IM ONE (12:38)
== END 2017-07-11 15:17 | disposition home or self-care (01) | DRG 140 ==
LOC: 2NENU 22:49 → EMEROO 22:49 → 2NENU 07-06 00:47 → SUATTDRO 07-06 00:51
PROVIDERS: ADMIT Internal Medicine Hematology & Oncology; ATTEND Internal Medicine

== ENCOUNTER 2017-07-20 16:45 | Inpatient (IN) ==
[2017-07-20] MEDS ORDERED: Ipratropium/Albuterol Neb 3 ML IH ONE (16:47)
[2017-07-20] MEDS ORDERED: 0.9 % Sodium Chloride 1,000 ML IVC ONE (16:47)
[2017-07-20] MEDS ORDERED: methylPREDNISolone 125 MG/2 ML VIAL IVP ONE (16:47)
[2017-07-20] MEDS ORDERED: Albuterol 2.5 MG/3 ML NEBULIZER IH ONE (16:47)
--- NOTE | 2017-07-20 16:51 | Emergency Department Note ---
Disposition Clinical Impression: COPD exacerbation, Respiratory distress, acute Disposition: Admitted As Inpatient Condition: Fair General Adult HPI - General Chief complaint: ED Shortness of Breath/Dyspnea Stated complaint: hayes Time Seen by Provider: 07/20/17 16:47 - Related Data Home Medications Medication Instructions Recorded Confirmed Acetaminophen [Non-Aspirin] 975 mg PO BID PRN 07/07/17 07/08/17 Albuterol Sulfate [Ventolin Hfa] 2 puff IH Q6H PRN 07/07/17 07/07/17 Bisacodyl [Woman's Laxative] 5 - 10 mg PO DAILY PRN 07/07/17 07/07/17 Budesonide/Formoterol 160/4.5 2 puff IH BID 07/07/17 07/07/17 [Symbicort 160/4.5] Carbamide Peroxide [Ear Drops] 4 drop BOTH EARS DAILY 07/07/17 07/07/17 Docusate [Colace] 100 mg PO BID 07/07/17 07/07/17 Ipratropium/Albuterol Neb [Duoneb] 3 ml IH Q6H PRN 07/07/17 07/07/17 Naloxone HCl [Narcan] 4 mg NS ONCE PRN 07/07/17 07/07/17 Naltrexone HCl [Revia] 50 mg PO HS 07/07/17 07/07/17 Nicotine Patch [Nicoderm] 21 mg TD DAILY 07/07/17 07/07/17 Nicotine Polacrilex [Nicotine 2 mg BC Q4H 07/07/17 07/07/17 Lozenge] OLANZapine [Zyprexa] 5 mg PO DAILY 07/07/17 07/07/17 Omeprazole [PriLOSEC] 20 mg PO DAILY 07/07/17 07/07/17 Ondansetron HCl [Zofran] 4 mg PO TID PRN 07/07/17 07/07/17 Polyethylene Glycol 3350 [MiraLAX] 17 gm PO DAILY 07/07/17 07/07/17 Sildenafil Citrate [Viagra] 50 mg PO ONCE PRN 07/07/17 07/07/17 hydrOXYzine HCl [Hydroxyzine HCl] 50 mg PO TID 07/07/17 07/07/17 OLANZapine [Zyprexa] 10 mg PO HS 07/08/17 07/08/17 Previous Rx's Medication Instructions Recorded Azithromycin [Zithromax] 500 mg PO Q24H tablet 07/11/17 predniSONE [PredniSONE] 60 mg PO DAILY #3 tablet 07/11/17 Allergies Allergy/AdvReac Type Severity Reaction Status Date / Time haloperidol [From Haldol] AdvReac Muscle Pain Verified 07/05/17 22:56 Eugenio Saenz AdvReac Weakness Verified 07/05/17 22:56 Past Medical History - Past Medical History Medical history: Reports: COPD, hepatitis, other Surgical history: Reports: cholecystectomy Psychiatric history: Reports: anxiety, bipolar, depression, schizophrenia - Social History Smoking Status: Current every day smoker Smokeless Tobacco Status: No Alcohol use: Reports: none Drug use: Reports: cocaine, IV Drug Use, other Course Vital Signs Temperature 99.1 F 07/20/17 16:57 Pulse Rate 129 07/20/17 16:57 Respiratory Rate 24 07/20/17 16:57 Blood Pressure 112/87 07/20/17 16:57 O2 Sat by Pulse Oximetry 100 07/20/17 16:57 Temperature 98.5 F 07/20/17 19:51 Pulse Rate 120 07/20/17 19:51 Respiratory Rate 26 07/20/17 21:58 Blood Pressure 160/72 07/20/17 20:20 O2 Sat by Pulse Oximetry 94 07/20/17 21:58 Oxygen Delivery Oxygen Delivery Nasal Cannula Medical Decision Making - Lab Data Result diagrams: 07/20/17 17:06 07/20/17 17:06 Lab Results 07/20/17 07/20/17 07/20/17 Range/Units 17:06 17:06 17:06 WBC 12.1 H (4.3-11.1) K/mcL RBC 4.53 (4.19-5.50) M/mcL Hgb 13.1 (12.9-16.9) g/dL Hct 41.5 (37.5-50.1) % MCV 91.6 (83.0-100.0) fL MCH 28.9 (28.0-33.3) pg MCHC 31.6 (31.6-35.5) g/dL RDW 13.3 (11.5-14.5) % Plt Count 169 (140-400) K/mcL MPV 9.3 L (9.4-12.4) fL Immature Gran % 0.6 (0-4) % Seg Neutrophils % 69.5 % Lymphocytes % 20.4 % Monocytes % 8.4 % Eosinophils % 1.0 % Basophils % 0.1 % Neutrophils # 8.4 (1.6-8.9) K/mcL Lymphocytes # 2.5 (0.6-4.6) K/mcL Monocytes # 1.0 (0.0-1.3) K/mcL Eosinophils # 0.1 (0.0-0.6) K/mcL Basophils # 0.0 (0.0-0.2) K/mcL VBG pH (7.32-7.42) pH Units VBG pCO2 (41-51) mmHg VBG pO2 (25-50) mmHg VBG HCO3 (21-27) mEq/L Sodium 137 (136-145) mEq/L Potassium 4.1 (3.5-5.1) mEq/L Chloride 93 L (98-107) mEq/L Carbon Dioxide 43 H* (23-29) mEq/L BUN 28 H (8-23) mg/dL Creatinine 0.65 L (0.70-1.30) mg/dL Est GFR ( Amer) > 60 (> 60) Est GFR (Non-Af Amer) > 60 (> 60) BUN/Creatinine Ratio 43 H (6-26) Glucose 107 H (70-105) mg/dL Calculated Osmolality 290 (280-300) Lactic Acid 0.9 (0.5-2.2) mmol/L Calcium 9.2 (8.6-10.3) mg/dL Troponin I (< 0.04) ng/mL B-Natriuretic Peptide (Less than 100) pg/mL 07/20/17 07/20/17 07/20/17 Range/Units 17:06 17:06 18:22 WBC (4.3-11.1) K/mcL RBC (4.19-5.50) M/mcL Hgb (12.9-16.9) g/dL Hct (37.5-50.1) % MCV (83.0-100.0) fL MCH (28.0-33.3) pg MCHC (31.6-35.5) g/dL RDW (11.5-14.5) % Plt Count (140-400) K/mcL MPV (9.4-12.4) fL Immature Gran % (0-4) % Seg Neutrophils % % Lymphocytes % % Monocytes % % Eosinophils % % Basophils % % Neutrophils # (1.6-8.9) K/mcL Lymphocytes # (0.6-4.6) K/mcL Monocytes # (0.0-1.3) K/mcL Eosinophils # (0.0-0.6) K/mcL Basophils # (0.0-0.2) K/mcL VBG pH 7.29 L (7.32-7.42) pH Units VBG pCO2 90 H* (41-51) mmHg VBG pO2 44 (25-50) mmHg VBG HCO3 43 H (21-27) mEq/L Sodium (136-145) mEq/L Potassium (3.5-5.1) mEq/L Chloride (98-107) mEq/L Carbon Dioxide (23-29) mEq/L BUN (8-23) mg/dL Creatinine (0.70-1.30) mg/dL Est GFR ( Amer) (> 60) Est GFR (Non-Af Amer) (> 60) BUN/Creatinine Ratio (6-26) Glucose (70-105) mg/dL Calculated Osmolality (280-300) Lactic Acid (0.5-2.2) mmol/L Calcium (8.6-10.3) mg/dL Troponin I < 0.03 (< 0.04) ng/mL B-Natriuretic Peptide 31 (Less than 100) pg/mL Critical Care Time Critical Care Time: Yes Total Critical Care Time: 30 Attestation: The high probability of a clinically significant, sudden or life threatening deterioration of the [] system(s) required my full and direct attention, intervention and personal management. The aggregate critical care time was [] minutes. This time is in addition to time spent performing reported procedures but includes the following: [] Data Review and interpretation [] Patient assessment and monitoring of vital signs [] Documentation [] Medication orders and management Attestation Statement - Attestation Attestation: I examined this patient and my medical decision-making was reviewed with the Resident Physician. I agree with the documented findings, disposition and treatment plan as described except to the extent set forth below. Face to face time provided Arrives by EMS from home after he ran out of his oxygen. He is visibly tachypneic and dyspneic. He has a history of oxygen dependent COPD. Labored breathing necessitated BiPAP therapy upon arrival
[2017-07-20 17:24] LABS: Basophils % 0.1 %; Eosinophils # 0.1 K/mcL (0.0-0.6); Hematocrit 41.5 % (37.5-50.1); Hemoglobin 13.1 g/dL (12.9-16.9); Immature Granulocytes % 0.6 % (0-4); Lymphocytes # 2.5 K/mcL (0.6-4.6); Lymphocytes % 20.4 %; Mean Corpuscular HGB Conc 31.6 g/dL (31.6-35.5); Mean Corpuscular Hemoglobin 28.9 pg (28.0-33.3); Mean Corpuscular Volume 91.6 fL (83.0-100.0); Mean Platelet Volume 9.3 fL (9.4-12.4); Monocytes % 8.4 %; Neutrophils # 8.4 K/mcL (1.6-8.9); Platelet Count 169 K/mcL (140-400); Red Blood Count 4.53 M/mcL (4.19-5.50); Red Cell Distribution Width 13.3 % (11.5-14.5); Segmented Neutrophils % 69.5 %
[2017-07-20 17:43] LABS: BUN/Creatinine Ratio 43 (6-26); Blood Urea Nitrogen 28 mg/dL (8-23); Calcium 9.2 mg/dL (8.6-10.3); Carbon Dioxide 43 mEq/L (23-29); Chloride 93 mEq/L (98-107); Glucose 107 mg/dL (70-105); Osmolality,Calculated 290 (280-300); Potassium 4.1 mEq/L (3.5-5.1); Sodium 137 mEq/L (136-145); eGFR For African Americans > 60 (> 60); eGFR For Non-African Americans > 60 (> 60)
--- NOTE | 2017-07-20 17:45 | Emergency Department Note ---
Disposition Clinical Impression: COPD exacerbation, Respiratory distress, acute Disposition: Admitted As Inpatient Condition: Fair Time of Disposition: 18:11 SOB HPI - General Chief Complaint: ED Shortness of Breath/Dyspnea Stated Complaint: hayes Time Seen by Provider: 07/20/17 16:47 Source: patient, EMS Limitations: no limitations Nursing Notes Reviewed: Yes Vital Signs Reviewed: Yes - History of Present Illness 61-year-old male complains of difficulty breathing and shortness of breath the past 4 days. Patient states he has a history of COPD. He states that his breathing has been getting worse over the past 4 days but today's been on tolerable. Patient denies any fevers or chest pain. Patient denies any change in sputum - Related Data Home Medications Medication Instructions Recorded Confirmed Acetaminophen [Non-Aspirin] 975 mg PO BID PRN 07/07/17 07/08/17 Albuterol Sulfate [Ventolin Hfa] 2 puff IH Q6H PRN 07/07/17 07/07/17 Bisacodyl [Woman's Laxative] 5 - 10 mg PO DAILY PRN 07/07/17 07/07/17 Budesonide/Formoterol 160/4.5 2 puff IH BID 07/07/17 07/07/17 [Symbicort 160/4.5] Carbamide Peroxide [Ear Drops] 4 drop BOTH EARS DAILY 07/07/17 07/07/17 Docusate [Colace] 100 mg PO BID 07/07/17 07/07/17 Ipratropium/Albuterol Neb [Duoneb] 3 ml IH Q6H PRN 07/07/17 07/07/17 Naloxone HCl [Narcan] 4 mg NS ONCE PRN 07/07/17 07/07/17 Naltrexone HCl [Revia] 50 mg PO HS 07/07/17 07/07/17 Nicotine Patch [Nicoderm] 21 mg TD DAILY 07/07/17 07/07/17 Nicotine Polacrilex [Nicotine 2 mg BC Q4H 07/07/17 07/07/17 Lozenge] OLANZapine [Zyprexa] 5 mg PO DAILY 07/07/17 07/07/17 Omeprazole [PriLOSEC] 20 mg PO DAILY 07/07/17 07/07/17 Ondansetron HCl [Zofran] 4 mg PO TID PRN 07/07/17 07/07/17 Polyethylene Glycol 3350 [MiraLAX] 17 gm PO DAILY 07/07/17 07/07/17 Sildenafil Citrate [Viagra] 50 mg PO ONCE PRN 07/07/17 07/07/17 hydrOXYzine HCl [Hydroxyzine HCl] 50 mg PO TID 07/07/17 07/07/17 OLANZapine [Zyprexa] 10 mg PO HS 07/08/17 07/08/17 Previous Rx's Medication Instructions Recorded Azithromycin [Zithromax] 500 mg PO Q24H tablet 07/11/17 predniSONE [PredniSONE] 60 mg PO DAILY #3 tablet 07/11/17 Allergies Allergy/AdvReac Type Severity Reaction Status Date / Time haloperidol [From Haldol] AdvReac Muscle Pain Verified 07/05/17 22:56 [place] AdvReac Weakness Verified 07/05/17 22:56 All systems ED: reviewed and negative except as stated. Review of Systems: As Per HPI Constitutional: Denies: fever, weakness Eyes: Denies: vision change ENT ED: Reports: congestion Cardiovascular: Denies: chest pain Respiratory: Reports: cough, dyspnea. Denies: wheezes Gastrointestinal: Denies: abdominal pain, nausea, vomiting, diarrhea Past Medical History - Past Medical History Attestation: Yes The following information was validated with the patient. Source: patient, nursing notes reviewed Medical history: Reports: COPD, hepatitis, other Surgical history: Reports: cholecystectomy Psychiatric history: Reports: anxiety, bipolar, depression, schizophrenia - Social History Smoking Status: Current every day smoker Smokeless Tobacco Status: No Alcohol use: Reports: none Drug use: Reports: cocaine, IV Drug Use, other Physical Exam Vital Signs Temperature 99.1 F 07/20/17 16:57 Pulse Rate 129 07/20/17 16:57 Respiratory Rate 24 07/20/17 16:57 Blood Pressure 112/87 07/20/17 16:57 O2 Sat by Pulse Oximetry 100 07/20/17 16:57 Temperature 99.1 F 07/20/17 16:57 Pulse Rate 129 07/20/17 16:57 Respiratory Rate 21 07/20/17 17:19 Blood Pressure 112/87 07/20/17 17:19 O2 Sat by Pulse Oximetry 99 07/20/17 17:19 Oxygen Delivery Oxygen Delivery Non Rebreather Mask 61-year-old male who is alert and oriented 3 and in acute distress secondary to difficulty in breathing. Patient is moving very little air on auscultation. Bilateral lung sounds in the lower lung areas are unobtainable. Patient appears very anxious. Patient's tachycardic, afebrile, tachypneic O2 sats 15 L via nonrebreather - General Limitations: no limitations General appearance: alert, in no apparent distress - Head Head exam: atraumatic, normocephalic, normal inspection - Eye Eye exam: Present: normal appearance, PERRL, EOMI - ENT ENT exam: normal exam, normal oropharynx, mucous membranes moist - Neck Neck exam: Present: normal inspection, full ROM, trachea midline - Chest Chest inspection: Present: normal inspection, symmetric chest wall rise - Respiratory Respiratory exam: Present: respiratory distress, accessory muscle use, prolonged expiratory phase. Absent: wheezes - Cardiovascular Cardiovascular exam: Present: tachycardia - Abdominal Exam Abdominal exam: Present: soft, Non-Tender. Absent: tenderness, distention, guarding, rebound, rigidity - Extremities Exam Extremities exam: Present: normal inspection, full ROM. Absent: tenderness, pedal edema - Back Exam Back exam: Present: normal inspection, full ROM. Absent: tenderness, CVA tenderness (R), CVA tenderness (L) Course Vital Signs Temperature 99.1 F 07/20/17 16:57 Pulse Rate 129 07/20/17 16:57 Respiratory Rate 24 07/20/17 16:57 Blood Pressure 112/87 07/20/17 16:57 O2 Sat by Pulse Oximetry 100 07/20/17 16:57 Temperature 98.5 F 07/20/17 19:51 Pulse Rate 120 07/20/17 19:51 Respiratory Rate 26 07/20/17 21:58 Blood Pressure 160/72 07/20/17 20:20 O2 Sat by Pulse Oximetry 94 07/20/17 21:58 Oxygen Delivery Oxygen Delivery Nasal Cannula Shortness of Breath/Dyspnea - [facility] Narrative Medical decision making narrative: COPD exacerbation, patient is a chest pain. Appropriate labs were ordered to check for any end organ complications. Patient placed on BiPAP. Chest x-ray shows stable read per radiology. Patient has no elevation of troponin. Patient is placed on DuoNeb therapy and albuterol. Patient still required BiPAP to help with his breathing. He is currently breathing a lot better and is calm down. Patient's lung sounds are clear but still requires positive pressure ventilation to assist his breathing. Patient will be admitted for COPD exacerbation. Patient understands and agrees to decision for admission Dr. Maya the hospitalist as except the patient for admission at 1750 hrs - Lab Data Lab results reviewed: Yes I reviewed the patient's lab results. Lab results narrative: Short CBC 07/20/17 Range/Units 17:06 WBC 12.1 H (4.3-11.1) K/mcL Hgb 13.1 (12.9-16.9) g/dL Hct 41.5 (37.5-50.1) % Plt Count 169 (140-400) K/mcL Neutrophils # 8.4 (1.6-8.9) K/mcL BMP 07/20/17 Range/Units 17:06 Sodium 137 (136-145) mEq/L Potassium 4.1 (3.5-5.1) mEq/L Chloride 93 L (98-107) mEq/L Carbon Dioxide 43 H* (23-29) mEq/L BUN 28 H (8-23) mg/dL Creatinine 0.65 L (0.70-1.30) mg/dL Glucose 107 H (70-105) mg/dL Calcium 9.2 (8.6-10.3) mg/dL Cardiac Enzymes 07/20/17 Range/Units 17:06 Troponin I < 0.03 (< 0.04) ng/mL Result diagrams: 07/20/17 17:06 07/20/17 17:06 Lab Results 07/20/17 07/20/17 07/20/17 Range/Units 17:06 17:06 17:06 WBC 12.1 H (4.3-11.1) K/mcL RBC 4.53 (4.19-5.50) M/mcL Hgb 13.1 (12.9-16.9) g/dL Hct 41.5 (37.5-50.1) % MCV 91.6 (83.0-100.0) fL MCH 28.9 (28.0-33.3) pg MCHC 31.6 (31.6-35.5) g/dL RDW 13.3 (11.5-14.5) % Plt Count 169 (140-400) K/mcL MPV 9.3 L (9.4-12.4) fL Immature Gran % 0.6 (0-4) % Seg Neutrophils % 69.5 % Lymphocytes % 20.4 % Monocytes % 8.4 % Eosinophils % 1.0 % Basophils % 0.1 % Neutrophils # 8.4 (1.6-8.9) K/mcL Lymphocytes # 2.5 (0.6-4.6) K/mcL Monocytes # 1.0 (0.0-1.3) K/mcL Eosinophils # 0.1 (0.0-0.6) K/mcL Basophils # 0.0 (0.0-0.2) K/mcL VBG pH (7.32-7.42) pH Units VBG pCO2 (41-51) mmHg VBG pO2 (25-50) mmHg VBG HCO3 (21-27) mEq/L Sodium 137 (136-145) mEq/L Potassium 4.1 (3.5-5.1) mEq/L Chloride 93 L (98-107) mEq/L Carbon Dioxide 43 H* (23-29) mEq/L BUN 28 H (8-23) mg/dL Creatinine 0.65 L (0.70-1.30) mg/dL Est GFR ( Amer) > 60 (> 60) Est GFR (Non-Af Amer) > 60 (> 60) BUN/Creatinine Ratio 43 H (6-26) Glucose 107 H (70-105) mg/dL Calculated Osmolality 290 (280-300) Lactic Acid 0.9 (0.5-2.2) mmol/L Calcium 9.2 (8.6-10.3) mg/dL Troponin I (< 0.04) ng/mL B-Natriuretic Peptide (Less than 100) pg/mL 07/20/17 07/20/17 07/20/17 Range/Units 17:06 17:06 18:22 WBC (4.3-11.1) K/mcL RBC (4.19-5.50) M/mcL Hgb (12.9-16.9) g/dL Hct (37.5-50.1) % MCV (83.0-100.0) fL MCH (28.0-33.3) pg MCHC (31.6-35.5) g/dL RDW (11.5-14.5) % Plt Count (140-400) K/mcL MPV (9.4-12.4) fL Immature Gran % (0-4) % Seg Neutrophils % % Lymphocytes % % Monocytes % % Eosinophils % % Basophils % % Neutrophils # (1.6-8.9) K/mcL Lymphocytes # (0.6-4.6) K/mcL Monocytes # (0.0-1.3) K/mcL Eosinophils # (0.0-0.6) K/mcL Basophils # (0.0-0.2) K/mcL VBG pH 7.29 L (7.32-7.42) pH Units VBG pCO2 90 H* (41-51) mmHg VBG pO2 44 (25-50) mmHg VBG HCO3 43 H (21-27) mEq/L Sodium (136-145) mEq/L Potassium (3.5-5.1) mEq/L Chloride (98-107) mEq/L Carbon Dioxide (23-29) mEq/L BUN (8-23) mg/dL Creatinine (0.70-1.30) mg/dL Est GFR ( Amer) (> 60) Est GFR (Non-Af Amer) (> 60) BUN/Creatinine Ratio (6-26) Glucose (70-105) mg/dL Calculated Osmolality (280-300) Lactic Acid (0.5-2.2) mmol/L Calcium (8.6-10.3) mg/dL Troponin I < 0.03 (< 0.04) ng/mL B-Natriuretic Peptide 31 (Less than 100) pg/mL - Radiology Data Radiology results reviewed: Yes I reviewed the patient's radiology results. Chest X-Ray 07/20/17 16:48 IMPRESSION: Stable portable study. D/ / Socorro Rodriguez Cha, MD / Socorro Rodriguez Cha, MD Interpreting Provider: Socorro Rodriguez Cha, MD - EKG Data EKG attestation: Yes I reviewed and interpreted this EKG. EKG results narrative: EKG taken 07/20/2017 at 1718 shows a sinus tachycardia at a rate of 1 21 bpm with no acute ST elevations or depressions leads, no cures were not QT prolongation.
[2017-07-20 18:25] LABS: VBG HCO3 43 mEq/L (21-27); VBG PCO2 90 mmHg (41-51); VBG PH 7.29 pH Units (7.32-7.42); VBG PO2 44 mmHg (25-50)
[2017-07-20] MEDS ORDERED: Levofloxacin 750 MG/150 ML 750 MG/150 ML BAG IVPB ONE (18:28)
[2017-07-20] MEDS ORDERED: Naloxone 0.4 MG/ML INJ IVP PRN (18:40)
[2017-07-20] MEDS ORDERED: Acetaminophen 325 MG TABLET PO PRN (18:40)
[2017-07-20] MEDS ORDERED: Mag Hydrox/Al Hydrox/Simeth 30 ML UDC PO PRN (18:40)
[2017-07-20] MEDS: 0.9 % Sodium Chloride 1,000 ML IVC SCH (20:13)
[2017-07-20] MEDS: *HR* Morphine 2 MG/ML SYRINGE IVP PRN (21:43)
[2017-07-20] MEDS: Ipratropium/Albuterol Neb 3 ML IH SCH (21:54)
[2017-07-20] MEDS ORDERED: *HR* LORazepam 2 MG/ML VIAL IVP ONE (22:56)
[2017-07-20] MEDS: MethylPREDNISolone 40 MG/ML VIAL IVP SCH (23:18)
[2017-07-21] MEDS: 0.9 % Sodium Chloride 1,000 ML IVC SCH (03:06)
[2017-07-21] MEDS: Ipratropium/Albuterol Neb 3 ML IH SCH ×4 (04:00→22:42)
[2017-07-21] MEDS: MethylPREDNISolone 40 MG/ML VIAL IVP SCH ×3 (05:27→17:39)
[2017-07-21 07:39] LABS: Hematocrit 36.2 % (37.5-50.1); Immature Granulocytes % 0.5 % (0-4); Lymphocytes # 0.3 K/mcL (0.6-4.6); Lymphocytes % 5.1 %; Mean Corpuscular HGB Conc 31.8 g/dL (31.6-35.5); Mean Corpuscular Volume 91.2 fL (83.0-100.0); Mean Platelet Volume 9.7 fL (9.4-12.4); Monocytes # 0.1 K/mcL (0.0-1.3); Monocytes % 1.1 %; Neutrophils # 5.9 K/mcL (1.6-8.9); Platelet Count 125 K/mcL (140-400); Red Blood Count 3.97 M/mcL (4.19-5.50); Red Cell Distribution Width 13.2 % (11.5-14.5); Segmented Neutrophils % 93.3 %
[2017-07-21] MEDS: Nicotine 21 MG PATCH.TD24 TD SCH (07:59)
[2017-07-21 08:03] LABS: Hemoglobin 11.5 g/dL (12.9-16.9)
[2017-07-21] MEDS: *HR* Morphine 2 MG/ML SYRINGE IVP PRN ×2 (10:33→15:50)
[2017-07-21] MEDS: Budesonide/Formoterol 160/4.5 MDI IH SCH ×2 (10:53→22:42)
--- NOTE | 2017-07-21 11:30 | Internal Med History&Physical ---
Date of Encounter: 07/20/17 (The patient was seen on 07/20) Time of Encounter: 20:00 Assessment and Plan (1) COPD exacerbation Current visit: Yes Status: Acute ASSESSMENT: - SOB due to * COPD exacerbation caused by URTI, allergen exposure, medication nonocompliance * R/O Pneumonia - no infiltrate on CXR PLAN: - Aerosols q 4 hr and PRN SOB - Solu-medrol 40 mg IV q 6 hr - O2 to keep SpO2 higher than 92% (SpO higher than 95% if CAD) - CBCD, BMP in AM - Sputum Gram stain, C+S - Tylenol 650 mg PO q 4-6 hr PRN pain/fever - Heparin 5000 U SQ BID - Home meds - check the list and restart - ABs (2) DVT prophylaxis Current visit: No Status: Acute Internal Medicine - H&P: HPI Chief complaint: Shortness of breath Admitted From: Home History of present illness: Mr. Sosa is a 61 year old male complains of difficulty breathing and shortness of breath the past 4 days. Patient states he has a history of COPD. He states that his breathing has been getting worse over the past 4 days but today's been on tolerable. Patient denies any fevers or chest pain. Patient denies any change in sputum. He was admitted for further evaluation and management of COPD exacerbation. The patient initially did not respond to nasal cannula and as a result he was started on BiPAP in the ER. Past Med Surg Social Fam HX - Past Medical History Medical history: COPD, hepatitis, other Psychiatric history: anxiety, bipolar, depression, schizophrenia - Past Surgical History Surgical History: cholecystectomy - Social History Smoking Status: Current every day smoker Packs per day: 1 Smokeless Tobacco Status: No Alcohol use: none Drug use: cocaine, IV Drug Use, other - Family History Mother Adopted: No Family Member Ethnicity: Non- Living Status: Hx Family Cardiac Disorders: Yes Hx Family Respiratory Disorders: Yes (dad emphezema) Hx Family Cancer: Yes (lung CA) Hx Family GI Disorders: No Hx Family Endocrine Disorder: Yes (DM) Hx Family Neuromuscular Disorders: No Hx Family Neurologic Disorders: No Hx Family HEENT Disorders: No Hx Family Autoimmune Disorders: No Father Adopted: No Family Member Ethnicity: Non- Living Status: Hx Family Cardiac Disorders: No Hx Family Respiratory Disorders: Yes Hx Family Cancer: Yes (Lung cancer) Hx Family GI Disorders: No Hx Family Endocrine Disorder: No Hx Family Neuromuscular Disorders: No Hx Family Neurologic Disorders: No Hx Family HEENT Disorders: No Hx Family Autoimmune Disorders: No Brother Family Member Ethnicity: Non- Living Status: Still Living Hx Family Respiratory Disorders: Yes (Emphysema) Sister Family Member Ethnicity: Non- Living Status: Still Living Internal Medicine - H&P: Meds Acetaminophen [Non-Aspirin] 975 mg PO BID PRN 07/07/17 [History] Albuterol Sulfate [Ventolin Hfa] 2 puff IH Q6H PRN 07/07/17 [History] Bisacodyl [Woman's Laxative] 5 - 10 mg PO DAILY PRN 07/07/17 [History] Budesonide/Formoterol 160/4.5 [Symbicort 160/4.5] 2 puff IH BID 07/07/17 [ History] Carbamide Peroxide [Ear Drops] 4 drop BOTH EARS DAILY 07/07/17 [History] Docusate [Colace] 100 mg PO BID 07/07/17 [History] Ipratropium/Albuterol Neb [Duoneb] 3 ml IH Q6H PRN 07/07/17 [History] Naloxone HCl [Narcan] 4 mg NS ONCE PRN 07/07/17 [History] Naltrexone HCl [Revia] 50 mg PO HS 07/07/17 [History] Nicotine Patch [Nicoderm] 21 mg TD DAILY 07/07/17 [History] Nicotine Polacrilex [Nicotine Lozenge] 2 mg BC Q4H 07/07/17 [History] OLANZapine [Zyprexa] 5 mg PO DAILY 07/07/17 [History] Omeprazole [PriLOSEC] 20 mg PO DAILY 07/07/17 [History] Ondansetron HCl [Zofran] 4 mg PO TID PRN 07/07/17 [History] Polyethylene Glycol 3350 [MiraLAX] 17 gm PO DAILY 07/07/17 [History] Sildenafil Citrate [Viagra] 50 mg PO ONCE PRN 07/07/17 [History] hydrOXYzine HCl [Hydroxyzine HCl] 50 mg PO TID 07/07/17 [History] OLANZapine [Zyprexa] 10 mg PO HS 12/19/17 [History] Azithromycin [Zithromax] 500 mg PO Q24H tablet 07/11/17 [Rx] predniSONE [PredniSONE] 60 mg PO DAILY #3 tablet 07/11/17 [Rx] 3 Allergy/AdvReac Type Severity Reaction Status Date / Time haloperidol [From Haldol] AdvReac Muscle Pain Verified 07/05/17 22:56 [place] AdvReac Weakness Verified 07/05/17 22:56 All Systems PM: A 10-system review of systems was performed and is negative for pertinent findings except as documented above in the HPI. - Constitutional Constitutional: no chills, no fever(s), no night sweats - Cardiovascular Cardiovascular ROS IM: chest pain, dyspnea, no diaphoresis, no lightheadedness, no palpitations, no syncope - Respiratory Respiratory: cough, dyspnea, wheezing, no excessive phlegm production - Gastrointestinal Gastrointestinal: no abdominal pain, no diarrhea, no hematemesis, no hematochezia, no melena, no nausea, no vomiting - Neurological Neurological ROS: no confusion, no convulsions, no focal weakness, no numbness, no tingling, no tremor(s) - Constitutional Vitals: Temp Pulse Resp BP Pulse Ox 97.7 F 116 20 144/96 100 07/21/17 07:40 07/21/17 10:29 07/21/17 07:53 07/21/17 07:53 07/21/17 10:29 General appearance: Present: mild distress, A&O X 3 - Head Head exam: Present: atraumatic, normocephalic - Neck Neck exam general surgery: Present: supple, trachea midline. Absent: lymphadenopathy - Respiratory Respiratory exam: Present: decreased breath sounds, rhonchi, wheezes. Absent: accessory muscle use, rales - Cardiovascular Cardiovascular exam: Present: RRR, +S1, +S2. Absent: diastolic murmur, gallop, rubs, systolic murmur - GI/Abdominal GI/Abdominal exam: Present: normal bowel sounds, soft, no peritoneal signs. Absent: distended, tenderness - Extremities Exam Extremities exam: Present: warm, radial pulses palpable and symmetrical. Absent : calf tenderness, cyanotic, pedal edema - Neurological Exam Neurological exam: Present: CN II-XII intact, oriented X3, no focal deficits. Absent: pronater drift, facial droop, speech deficit Internal Med - H&P Results - Labs CBC & Chem 7: 07/21/17 06:32 07/20/17 17:06 Labs: Short CBC 07/21/17 Range/Units 06:32 WBC 6.3 (4.3-11.1) K/mcL Hgb 11.5 L D (12.9-16.9) g/dL Hct 36.2 L (37.5-50.1) % Plt Count 125 L (140-400) K/mcL Neutrophils # 5.9 (1.6-8.9) K/mcL
--- NOTE | 2017-07-21 12:23 | Internal Med Progress Note ---
Date of Encounter: 07/21/17 Time of Encounter: 09:00 - Assessment and plan (1) Acute exacerbation of chronic obstructive airways disease Current Visit: Yes Status: Acute Assessment and plan: Acute exacerbation of COPD with probable acute on chronic bronchitis Continue DuoNeb breathing treatment, Symbicort, IV Levaquin, IV Solu-Medrol, O2 via NC Chest x-ray - stable, no acute process Troponin < 0.03 BNP - 31 CO2 - 43 EKG - sinus tachycardia with no acute ST-T changes Cultures - pending Cardiac telemetry, pulse ox, BiPAP as needed, labs in a.m., monitor closely (2) Tobacco abuse Current Visit: Yes Status: Chronic Assessment and plan: Counseled about cessation, nicotine patch (3) Schizoaffective disorder, bipolar type Current Visit: Yes Status: Chronic Assessment and plan: Chronic, stable Continue home dose of Zyprexa (4) Cocaine abuse Current Visit: Yes Status: Chronic Assessment and plan: History of cocaine abuse, unclear when patient last used cocaine (5) Chronic hepatitis C Current Visit: Yes Status: Chronic Qualifiers: Hepatic coma status: without hepatic coma Qualified Code(s): B18.2 - Chronic viral hepatitis C (6) DVT prophylaxis Current Visit: Yes Status: Acute Assessment and plan: Heparin subcutaneous - Time Spent With Patient 25 - 35 minutes - Subjective Interval history: Patient examined this morning. Patient is awake and alert. Not in any distress. Denies chest pain. Complains of mild shortness of breath and mild cough. Feels better this morning. No fever. Hemodynamically stable. Admitted for acute exacerbation of COPD. Continues to have mild wheezing. Symptoms are slowly improving. - Constitutional Vitals: Temp Pulse Resp BP Pulse Ox 98.7 F 102 16 115/69 100 07/21/17 11:38 07/21/17 11:43 07/21/17 11:43 07/21/17 11:43 07/21/17 11:43 General appearance: Present: cooperative, A&O X 3, pleasant, no acute distress, underweight, answers questions appropriately Exam: Chronically ill-appearing. - Head Head exam: Present: atraumatic - Eye Eye exam: Present: EOMI - ENT ENT exam: Present: mucous membranes dry - Respiratory Respiratory exam: Present: wheezes (Mild bilateral). Absent: accessory muscle use, chest wall tenderness, rales, respiratory distress, rhonchi, tachypnea - Cardiovascular Cardiovascular exam: Present: RRR, +S1, +S2 - GI/Abdominal GI/Abdominal exam: Present: soft. Absent: distended, firm, guarding, tenderness - Extremities Exam Extremities exam: Present: radial pulses palpable and symmetrical. Absent: calf tenderness, cyanotic, pedal edema - Neurological Exam Neurological exam: Present: alert, oriented X3, no focal deficits. Absent: facial droop, speech deficit Internal Medicine: Result - Labs CBC & Chem 7: 07/21/17 06:32 07/20/17 17:06 Labs: Short CBC 07/21/17 Range/Units 06:32 WBC 6.3 (4.3-11.1) K/mcL Hgb 11.5 L D (12.9-16.9) g/dL Hct 36.2 L (37.5-50.1) % Plt Count 125 L (140-400) K/mcL Neutrophils # 5.9 (1.6-8.9) K/mcL Consult Discharge Plan - Plan [facility]errals: [facility] [Primary Care Provider] -
[2017-07-21] MEDS: *HR* Heparin 5,000 UNIT/ML VIAL SQ SCH (17:39)
[2017-07-21] MEDS ORDERED: Levofloxacin 500 MG/100 ML 500 MG/100 ML BAG IVPB SCH (18:00)
[2017-07-21] MEDS ORDERED: OLANZapine 10 MG TAB.RAPDIS PO SCH (21:00)
[2017-07-22] MEDS: MethylPREDNISolone 40 MG/ML VIAL IVP SCH ×3 (00:34→12:07)
[2017-07-22] MEDS: *HR* Heparin 5,000 UNIT/ML VIAL SQ SCH (04:16)
[2017-07-22] MEDS: Ipratropium/Albuterol Neb 3 ML IH SCH ×3 (04:44→15:52)
[2017-07-22 05:57] LABS: BUN/Creatinine Ratio 38 (6-26); Blood Urea Nitrogen 25 mg/dL (8-23); Calcium 8.3 mg/dL (8.6-10.3); Carbon Dioxide 39 mEq/L (23-29); Chloride 96 mEq/L (98-107); Glucose 252 mg/dL (70-105); Osmolality,Calculated 293 (280-300); Potassium 4.2 mEq/L (3.5-5.1); Sodium 135 mEq/L (136-145); eGFR For African Americans > 60 (> 60); eGFR For Non-African Americans > 60 (> 60)
[2017-07-22 06:08] LABS: Hematocrit 34.6 % (37.5-50.1); Hemoglobin 10.9 g/dL (12.9-16.9); Immature Granulocytes % 0.4 % (0-4); Lymphocytes # 0.3 K/mcL (0.6-4.6); Lymphocytes % 4.1 %; Mean Corpuscular HGB Conc 31.5 g/dL (31.6-35.5); Mean Corpuscular Hemoglobin 28.8 pg (28.0-33.3); Mean Corpuscular Volume 91.3 fL (83.0-100.0); Mean Platelet Volume 9.6 fL (9.4-12.4); Monocytes # 0.2 K/mcL (0.0-1.3); Monocytes % 2.4 %; Neutrophils # 7.7 K/mcL (1.6-8.9); Platelet Count 116 K/mcL (140-400); Red Blood Count 3.79 M/mcL (4.19-5.50); Red Cell Distribution Width 12.9 % (11.5-14.5); Segmented Neutrophils % 93.1 %
[2017-07-22] MEDS ORDERED: OLANZapine 5 MG TAB.RAPDIS PO SCH (09:00)
[2017-07-22] MEDS: Nicotine 21 MG PATCH.TD24 TD SCH (09:06)
[2017-07-22] MEDS ORDERED: hydrOXYzine pamoate 25 MG CAPSULE PO ONE (09:30)
[2017-07-22] MEDS: Budesonide/Formoterol 160/4.5 MDI IH SCH (11:06)
[2017-07-22 15:44] VITALS: BP 142/80
--- NOTE | 2017-07-22 16:18 | Discharge Summary ---
Date of Encounter: 07/22/17 Time of Encounter: 10:00 - Discharge Medications Prescriptions: Ipratropium/Albuterol Neb [Duoneb] 3 ml IH Q6H PRN #30 inhsol PRN Reason: Shortness Of Breath Home Medications: Acetaminophen [Non-Aspirin] 975 mg PO BID 07/07/17 [History] Albuterol Sulfate [Ventolin Hfa] 2 puff IH Q6H PRN 07/07/17 [History] Bisacodyl [Woman's Laxative] 10 mg PO DAILY PRN 07/07/17 [History] Budesonide/Formoterol 160/4.5 [Symbicort 160/4.5] 2 puff IH BID 07/07/17 [ History] Docusate [Colace] 100 mg PO BID 07/07/17 [History] Naloxone HCl [Narcan] 4 mg NS ONCE PRN 07/07/17 [History] Naltrexone HCl [Revia] 50 mg PO HS 07/07/17 [History] Nicotine Patch [Nicoderm] 21 mg TD DAILY 07/07/17 [History] Nicotine Polacrilex [Nicotine Lozenge] 2 mg BC Q4H PRN 07/07/17 [History] OLANZapine [Zyprexa] 5 mg PO DAILY 07/07/17 [History] Omeprazole [PriLOSEC] 20 mg PO DAILY 07/07/17 [History] Ondansetron HCl [Zofran] 4 mg PO TID PRN 07/07/17 [History] Polyethylene Glycol 3350 [MiraLAX] 17 gm PO BID PRN 07/07/17 [History] Sildenafil Citrate [Viagra] 50 mg PO AD PRN 07/07/17 [History] OLANZapine [Zyprexa] 10 mg PO HS 07/08/17 [History] Ipratropium/Albuterol Neb [Duoneb] 3 ml IH Q6H PRN #30 inhsol 07/22/17 [Rx] Allergies/Adverse Reactions: 3 Allergy/AdvReac Type Severity Reaction Status Date / Time haloperidol [From Haldol] AdvReac Muscle Pain Verified 07/05/17 22:56 [place] AdvReac Weakness Verified 07/05/17 22:56 Date of admission: 07/20/17 19:06 [facility] care physician: [facility] Consults: 07/20/17 19:12 Consult to Nurse Navigator [CONS] Routine Comment: 07/20/17 19:50 Consult to Concierge [CONS] Routine Reason for SW Consult: home health & o2 services at home - Patient Status Disposition: Home, Self-Care Condition: Fair - Discharge Instructions Follow Up With: [facility] [Primary Care Provider] - (patient is to go to [facility], no PCP appointment needed) Hospital course: Patient is a 61 year old male with past medical history significant for anxiety , bipolar, depression, schizophrenia and COPD who presented to the ER on due to shortness of breath. Patient reports his symptoms began after he ran out of oxygen. Patient came to the ER due to his symptoms of shortness of breath. During patients hospital stay, his symptoms resolved after being placed back on his baseline supplemental oxygen. community mental health social worker was consulted and [facility] contacted to ensure patient has adequate oxygen on discharge. Oxygen has been delivered and patient will be discharge to follow up with primary care provider at the [place]. - Time Spent with Patient Total time spent providing and/or coordinating discharge services: Less than 30 minutes - Constitutional Vitals: Temp Pulse Resp BP Pulse Ox 97.8 F 111 18 142/80 93 07/22/17 15:43 07/22/17 15:43 07/22/17 15:52 07/22/17 15:43 07/22/17 15:52 General appearance: Present: cooperative, A&O X 3, pleasant, no acute distress, underweight, answers questions appropriately - Respiratory Respiratory exam: Present: CTAB. Absent: accessory muscle use, rales, rhonchi, wheezes - Cardiovascular Cardiovascular exam: Present: RRR, +S1, +S2. Absent: diastolic murmur, gallop, rubs, systolic murmur
--- NOTE | 2017-07-22 16:27 | Electrocardiograph Report ---
[address] [address] Test Date: 2017-07-20 Pat Name: Pa Sosa Department: 103 Room: 2N12 Gender: M Yarn Dyer: EKP : 1955 Requested By: Eddie Gonzalez Order Number: [id number] Reading MD: Ivan Daniels Measurements Intervals [place] Rate: 121 P: 89 MD: 136 QRS: 102 QRSD: 71 T: 79 QT: 267 QTc: 339 Interpretive Statements SINUS TACHYCARDIA BASELINE ARTIFACT Electronically Signed On 07-22-2017 16:25:37 EST by Ivan Daniels
[2017-07-28 08:57] LABS: ABG Base Excess 13 mEq/L (-2 to 3); ABG HCO3 41 mEq/L (21-27); ABG Oxygen Saturation 98 % (95-98); ABG PCO2 75 mmHg (35-45); ABG PH 7.35 pH Units (7.32-7.45); ABG PO2 113 mmHg (85-104); ABG TCO2 44 mEq/L (20-26)
== END 2017-07-22 19:11 | disposition home or self-care (01) | DRG 140 ==
LOC: EMEROO 16:45 → 2NNU 16:45 → SUATTDRO 19:06 → 2NNU 19:18
PROVIDERS: ADMIT Internal Medicine Nephrology; ATTEND Hospitalist

== ENCOUNTER 2017-07-23 17:11 | Inpatient (IN) ==
[2017-07-23 17:39] LABS: Basophils % 0.1 %; Eosinophils % 0.1 %; Hematocrit 41.1 % (37.5-50.1); Immature Granulocytes % 0.6 % (0-4); Lymphocytes # 0.5 K/mcL (0.6-4.6); Mean Corpuscular HGB Conc 31.4 g/dL (31.6-35.5); Mean Corpuscular Hemoglobin 28.9 pg (28.0-33.3); Mean Corpuscular Volume 91.9 fL (83.0-100.0); Mean Platelet Volume 9.5 fL (9.4-12.4); Monocytes # 0.5 K/mcL (0.0-1.3); Monocytes % 4.1 %; Neutrophils # 11.7 K/mcL (1.6-8.9); Platelet Count 127 K/mcL (140-400); Red Blood Count 4.47 M/mcL (4.19-5.50); Red Cell Distribution Width 13.2 % (11.5-14.5); Segmented Neutrophils % 91.1 %
[2017-07-23 17:54] LABS: BUN/Creatinine Ratio 37 (6-26); Blood Urea Nitrogen 25 mg/dL (8-23); Calcium 8.8 mg/dL (8.6-10.3); Carbon Dioxide 44 mEq/L (23-29); Chloride 95 mEq/L (98-107); Glucose 133 mg/dL (70-105); Hemoglobin 12.9 g/dL (12.9-16.9); Osmolality,Calculated 296 (280-300); Sodium 140 mEq/L (136-145); eGFR For African Americans > 60 (> 60); eGFR For Non-African Americans > 60 (> 60)
[2017-07-23] MEDS ORDERED: *HR* LORazepam 2 MG/ML VIAL IVP ONE (17:56)
[2017-07-23] MEDS ORDERED: Aspirin 81 MG TAB.CHEW PO ONE (18:30)
[2017-07-23] MEDS ORDERED: Levofloxacin 750 MG/150 ML 750 MG/150 ML BAG IVPB ONE (18:43)
--- NOTE | 2017-07-23 18:45 | Emergency Department Note ---
Disposition Clinical Impression: COPD exacerbation, Elevated troponin Respiratory failure Qualifiers: Chronicity: acute Respiratory failure complication: unspecified whether with hypoxia or hypercapnia Qualified Code(s): J96.00 - Acute respiratory failure, unspecified whether with hypoxia or hypercapnia Disposition: Admitted As Inpatient Condition: Good SOB HPI - General Chief Complaint: ED Shortness of Breath/Dyspnea Stated Complaint: GER Time Seen by Provider: 07/23/17 17:14 Source: EMS Mode of arrival: EMS Limitations: physical limitation Nursing Notes Reviewed: Yes Vital Signs Reviewed: Yes - History of Present Illness 61-year-old male history of COPD on 3 L nasal cannula continuously presents to the ER due to cough and shortness of breath. Patient reports he was just discharged yesterday but left AGAINST MEDICAL ADVICE from this facility for COPD exacerbation. Reports continued shortness of breath. Was seen at the [place] urgent care where he was noted to be hypoxic. Patient was given a DuoNeb treatment as well as Solu-Medrol and placed on CPAP. Presents complaining of increased shortness of breath. Reports this will better after DuoNeb treatment. No chest pain. No cardiac history. No other complaints. Pt Subjective Complaint: shortness of breath, cough Onset (ago): day(s) Context: recent illness Severity: severe Consistency/Duration: constant Improves with: nothing Worsens with: nothing Known history of: COPD Associated symptoms: Reports: cough. Denies: fever, sputum production Treatment prior to arrival: oxygen, bronchodilator Cough present: Yes Cough Description: Involuntary Cough Frequency: Intermittent Sputum production: No Sputum Amount: None - Related Data Home oxygen amount: 3 liters Home Medications Medication Instructions Recorded Confirmed Albuterol Sulfate [Ventolin Hfa] 2 puff IH Q6H PRN 07/07/17 07/23/17 Bisacodyl [Woman's Laxative] 10 mg PO DAILY PRN 07/07/17 07/23/17 Budesonide/Formoterol 160/4.5 2 puff IH BID 07/07/17 07/23/17 [Symbicort 160/4.5] Docusate [Colace] 100 mg PO BID 07/07/17 07/23/17 Naloxone HCl [Narcan] 4 mg NS ONCE PRN 07/07/17 07/23/17 Nicotine Patch [Nicoderm] 21 mg TD DAILY 07/07/17 07/23/17 Nicotine Polacrilex [Nicotine 2 mg BC Q4H PRN 07/07/17 07/23/17 Lozenge] Omeprazole [PriLOSEC] 20 mg PO DAILY 07/07/17 07/23/17 Ondansetron HCl [Zofran] 4 mg PO TID PRN 07/07/17 07/23/17 Polyethylene Glycol 3350 [MiraLAX] 17 gm PO BID PRN 07/07/17 07/23/17 Sildenafil Citrate [Viagra] 50 mg PO AD PRN 07/07/17 07/23/17 Previous Rx's Medication Instructions Recorded Ipratropium/Albuterol Neb [Duoneb] 3 ml IH Q6H PRN #30 inhsol 07/22/17 Allergies Allergy/AdvReac Type Severity Reaction Status Date / Time haloperidol [From Haldol] AdvReac Muscle Pain Verified 07/23/17 17:12 [place] AdvReac Weakness Verified 07/23/17 17:12 All systems ED: reviewed and negative except as stated. Constitutional: Denies: fever Cardiovascular: Denies: chest pain Respiratory: Reports: cough, dyspnea Gastrointestinal: Denies: abdominal pain, nausea, vomiting, diarrhea Past Medical History - Past Medical History Attestation: Yes The following information was validated with the patient. Source: patient Medical history: Reports: COPD, hepatitis, other Surgical history: Reports: cholecystectomy Psychiatric history: Reports: anxiety, bipolar, depression, schizophrenia - Social History Smoking Status: Current every day smoker Smokeless Tobacco Status: No Alcohol use: Reports: none Drug use: Reports: cocaine, IV Drug Use, other Physical Exam - General Limitations: physical limitation General appearance: alert, anxious - Head Head exam: atraumatic, normocephalic - Eye Eye exam: Present: normal appearance - ENT ENT exam: normal exam - Neck Neck exam: Present: normal inspection, full ROM - Chest Chest inspection: Present: normal inspection, symmetric chest wall rise - Respiratory Respiratory exam: Present: respiratory distress, accessory muscle use, prolonged expiratory phase - Cardiovascular Cardiovascular exam: Present: normal rhythm, tachycardia, normal heart sounds - Abdominal Exam Abdominal exam: Present: soft, Non-Tender. Absent: tenderness - Extremities Exam Extremities exam: Present: normal inspection, full ROM - Expanded Upper Extremity Exam Shoulder exam: Present: normal inspection, full ROM Arm exam: Present: normal inspection, full ROM Elbow exam: Present: normal inspection, full ROM Forearm/Wrist exam: Present: normal inspection, full ROM Hand exam: Present: normal inspection, full ROM - Expanded Lower Extremity Exam Hip/Pelvis exam: Present: normal inspection, full ROM Upper leg exam: Present: normal inspection, full ROM Knee exam: Present: normal inspection, full ROM Lower leg exam: Present: normal inspection, full ROM Ankle exam: Present: normal inspection, full ROM Foot/toe exam: Present: normal inspection, full ROM - Neurological Exam Neurological exam: Present: alert, other - Psychiatric Psychiatric exam: Present: anxious - Skin Skin exam: Present: warm, dry, intact Course Course Narrative: Patient seen and examined. Currently on CPAP. We will obtain an EKG, chest x- ray as well as labs including troponin. He was given IV Solu-Medrol and 1 DuoNeb prior to arrival. Patient will require admission for COPD exacerbation. Vital Signs Temperature 100.3 F H 07/23/17 17:16 Pulse Rate 125 07/23/17 17:16 Respiratory Rate 22 07/23/17 17:16 Blood Pressure 124/90 07/23/17 17:16 O2 Sat by Pulse Oximetry 99 07/23/17 17:16 Temperature 98.1 F 07/25/17 11:11 Pulse Rate 97 07/25/17 11:11 Respiratory Rate 16 07/25/17 11:11 Blood Pressure 126/78 07/25/17 11:11 O2 Sat by Pulse Oximetry 97 07/25/17 11:11 Oxygen Delivery Oxygen Delivery Nasal Cannula Shortness of Breath/Dyspnea - [facility] Narrative Medical decision making narrative: 61-year-old male presents to the ER due to COPD exacerbation. Left AGAINST MEDICAL ADVICE yesterday for same. Was noted to be hypoxic upon presentation to the [place] urgent care. Placed on CPAP and sent for evaluation. Upon arrival patient has been able to be weaned to 3 L nasal cannula. He does appear anxious and was given Ativan as well as Solu-Medrol prior to arrival. His EKG demonstrates no ischemic findings. Chest x-ray with no abnormality. He does have an elevated troponin. Patient admitted to the hospital service for COPD exacerbation. - Lab Data Lab results reviewed: Yes I reviewed the patient's lab results. Result diagrams: 07/24/17 05:29 07/24/17 05:29 Lab Results 01/10/0507/23/17 07/23/17 Range/Units 17:28 17:28 17:28 WBC 12.8 H D (4.3-11.1) K/mcL RBC 4.47 (4.19-5.50) M/mcL Hgb 12.9 D (12.9-16.9) g/dL Hct 41.1 (37.5-50.1) % MCV 91.9 (83.0-100.0) fL MCH 28.9 (28.0-33.3) pg MCHC 31.4 L (31.6-35.5) g/dL RDW 13.2 (11.5-14.5) % Plt Count 127 L (140-400) K/mcL MPV 9.5 (9.4-12.4) fL Immature Gran % 0.6 (0-4) % Seg Neutrophils % 91.1 % Lymphocytes % 4.0 % Monocytes % 4.1 % Eosinophils % 0.1 % Basophils % 0.1 % Neutrophils # 11.7 H (1.6-8.9) K/mcL Lymphocytes # 0.5 L (0.6-4.6) K/mcL Monocytes # 0.5 (0.0-1.3) K/mcL Eosinophils # 0.0 (0.0-0.6) K/mcL Basophils # 0.0 (0.0-0.2) K/mcL Sodium 140 (136-145) mEq/L Potassium 4.0 (3.5-5.1) mEq/L Chloride 95 L (98-107) mEq/L Carbon Dioxide 44 H* (23-29) mEq/L BUN 25 H (8-23) mg/dL Creatinine 0.67 L (0.70-1.30) mg/dL Est GFR ( Amer) > 60 (> 60) Est GFR (Non-Af Amer) > 60 (> 60) BUN/Creatinine Ratio 37 H (6-26) Glucose 133 H (70-105) mg/dL Calculated Osmolality 296 (280-300) Calcium 8.8 (8.6-10.3) mg/dL Troponin I 0.04 H* (< 0.04) ng/mL B-Natriuretic Peptide (Less than 100) pg/mL 07/23/17 07/23/17 Range/Units 17:28 23:05 WBC (4.3-11.1) K/mcL RBC (4.19-5.50) M/mcL Hgb (12.9-16.9) g/dL Hct (37.5-50.1) % MCV (83.0-100.0) fL MCH (28.0-33.3) pg MCHC (31.6-35.5) g/dL RDW (11.5-14.5) % Plt Count (140-400) K/mcL MPV (9.4-12.4) fL Immature Gran % (0-4) % Seg Neutrophils % % Lymphocytes % % Monocytes % % Eosinophils % % Basophils % % Neutrophils # (1.6-8.9) K/mcL Lymphocytes # (0.6-4.6) K/mcL Monocytes # (0.0-1.3) K/mcL Eosinophils # (0.0-0.6) K/mcL Basophils # (0.0-0.2) K/mcL Sodium (136-145) mEq/L Potassium (3.5-5.1) mEq/L Chloride (98-107) mEq/L Carbon Dioxide (23-29) mEq/L BUN (8-23) mg/dL Creatinine (0.70-1.30) mg/dL Est GFR ( Amer) (> 60) Est GFR (Non-Af Amer) (> 60) BUN/Creatinine Ratio (6-26) Glucose (70-105) mg/dL Calculated Osmolality (280-300) Calcium (8.6-10.3) mg/dL Troponin I 0.03 (< 0.04) ng/mL B-Natriuretic Peptide 103 H (Less than 100) pg/mL - Radiology Data Radiology results reviewed: Yes I reviewed the patient's radiology results. Chest X-Ray 07/23/17 17:14 IMPRESSION: No acute process. D/ / Kelechi Dudley MD / Kelechi Dudley MD Interpreting Provider: Kelechi Dudley MD - EKG Data EKG attestation: Yes I reviewed and interpreted this EKG. EKG results narrative: EKG demonstrates sinus tachycardia with a rate of 127. Normal axis. Normal intervals. Poor R-wave progression. No gross ST elevations or depressions. No acute ischemic findings. No significant changes from previous EKG dated . Antonio - Antonio Situation: Demographics, MOA Background: Presenting Complaint, Relevant PMH, Meds, & Allergies Assessment: Vital Signs, Course and respsone to treatment, Exam Concerns, Patient/Family Expectation, Pertinant Lab Results Recommendation: Barrier(s) to disposition, Recommendation based on pending studies, treatments, or consults Antonio Report Given to: Dr. Eric Alvarez Repor Time: 19:09 Attestation Statement - Attestation Attestation: I examined this patient and my medical decision-making was reviewed with the Resident Physician, Dr. Lozano. I agree with the documented findings, disposition and treatment plan as described except to the extent set forth below. Pt is a 61 yo wm, who just left this facility AMA for AECOPD, who is sent from the [facility] for SOB with hypoxia. Pt c/o grad worsening SOB since leaving AMA. Pt denies any CP/press, no diaphoresis, no N/V, no post-tussive emesis. No other associated sxs. Pt received solumedrol and duoneb x 1 [employer]ALITY [employer]VIEW [employer], and currently on CPAP. Pt sent with DNR-CC only papers, but questioned about this on arrival and pt states he wants to be full code. I agree with the PE findings as documented. Pt given aerosols, and labs/CXR obtained. Labs show elev trop. Pt remains CP free with no acute EKG changes. CXR wnl. Pt has been weaned to 3 lpm NC O2. Will admit for AECOPD and elev trop.
[2017-07-23] MEDS ORDERED: Naloxone 0.4 MG/ML INJ IVP PRN (21:02)
[2017-07-23] MEDS ORDERED: Ondansetron ODT 4 MG TAB.RAPDIS SL PRN (21:07)
--- NOTE | 2017-07-23 21:13 | Internal Med History&Physical ---
<Jeff Ayers - Last Filed: 07/23/17 21:56> Date of Encounter: 07/23/17 Time of Encounter: 20:30 Assessment and Plan (1) COPD exacerbation Current visit: Yes Status: Acute Continue q4h duonebs, solumedrol 40mg q6, O2 titration. CXR negative for pleural effusion or pneumonia. (2) Elevated troponin Current visit: No Status: Acute Initial trop .04 in setting of COPD exacerbation, increased pCO2, hypoxia, without ischemic changes on ECG. Will trend q6. (3) Chronic hepatitis C Current visit: No Status: Chronic PT/INR am labs. CMP. Pt reports [facility]. No hepatomegaly, jaundice, or dark urine. Qualifiers: Hepatic coma status: without hepatic coma Qualified Code(s): B18.2 - Chronic viral hepatitis C (4) Schizoaffective disorder, bipolar type Current visit: No Status: Chronic Continue home med Olanzapine. (5) DVT prophylaxis Current visit: No Status: Acute Heparin 5000U SQ q12 Internal Medicine - H&P: HPI Chief complaint: Veronika Admitted From: Emergency Dept Plans for Post Hospital Care: Home History of present illness: Mr. Sosa is a 61 year old male, [place] patient, PMH chronic hep C, schizophrenia, COPD on 3L nasal cannula O2, everyday 1ppd smoker, who presents after recent admission for COPD exacerbation+leaving AMA on 07/21/17. Patient denies fever, productive cough, chest pain, n/v/d, recent travel, or leg pain. At the time of encounter, Mr. Sosa is comfortable, though breathing rate increased, saturating at 96%. Past Med Surg Social Fam HX - Past Medical History Medical history: COPD, hepatitis, other Psychiatric history: anxiety, bipolar, depression, schizophrenia - Past Surgical History Surgical History: cholecystectomy - Social History Smoking Status: Current every day smoker Smokeless Tobacco Status: No Alcohol use: none Drug use: cocaine, IV Drug Use, other - Family History Mother Adopted: No Family Member Ethnicity: Non- Living Status: Hx Family Cardiac Disorders: Yes Hx Family Respiratory Disorders: Yes (dad emphezema) Hx Family Cancer: Yes (lung CA) Hx Family GI Disorders: No Hx Family Endocrine Disorder: Yes (DM) Hx Family Neuromuscular Disorders: No Hx Family Neurologic Disorders: No Hx Family HEENT Disorders: No Hx Family Autoimmune Disorders: No Father Adopted: No Family Member Ethnicity: Non- Living Status: Hx Family Cardiac Disorders: No Hx Family Respiratory Disorders: Yes Hx Family Cancer: Yes (Lung cancer) Hx Family GI Disorders: No Hx Family Endocrine Disorder: No Hx Family Neuromuscular Disorders: No Hx Family Neurologic Disorders: No Hx Family HEENT Disorders: No Hx Family Autoimmune Disorders: No Brother Family Member Ethnicity: Non- Living Status: Still Living Hx Family Respiratory Disorders: Yes (Emphysema) Sister Family Member Ethnicity: Non- Living Status: Still Living Internal Medicine - H&P: Meds Albuterol Sulfate [Ventolin Hfa] 2 puff IH Q6H PRN 07/07/17 [History] Bisacodyl [Woman's Laxative] 10 mg PO DAILY PRN 07/07/17 [History] Budesonide/Formoterol 160/4.5 [Symbicort 160/4.5] 2 puff IH BID 07/07/17 [ History] Docusate [Colace] 100 mg PO BID 07/07/17 [History] Naloxone HCl [Narcan] 4 mg NS ONCE PRN 07/07/17 [History] Nicotine Patch [Nicoderm] 21 mg TD DAILY 07/07/17 [History] Nicotine Polacrilex [Nicotine Lozenge] 2 mg BC Q4H PRN 07/07/17 [History] Omeprazole [PriLOSEC] 20 mg PO DAILY 07/07/17 [History] Ondansetron HCl [Zofran] 4 mg PO TID PRN 07/07/17 [History] Polyethylene Glycol 3350 [MiraLAX] 17 gm PO BID PRN 07/07/17 [History] Sildenafil Citrate [Viagra] 50 mg PO AD PRN 07/07/17 [History] Ipratropium/Albuterol Neb [Duoneb] 3 ml IH Q6H PRN #30 inhsol 07/22/17 [Rx] 3 Allergy/AdvReac Type Severity Reaction Status Date / Time haloperidol [From Haldol] AdvReac Muscle Pain Verified 07/23/17 17:12 [place] AdvReac Weakness Verified 07/23/17 17:12 All Systems PM: A 10-system review of systems was performed and is negative for pertinent findings except as documented above in the HPI. - Constitutional Vitals: Temp Pulse Resp BP Pulse Ox 100.3 F H 94 22 128/82 93 07/23/17 17:16 07/23/17 18:38 07/23/17 18:38 07/23/17 18:38 07/23/17 18:38 General appearance: Present: A&O X 3, no acute distress - Head Head exam: Present: atraumatic - Respiratory Respiratory exam: Present: decreased breath sounds (bilaterally, normal chest excursion), tachypnea - Cardiovascular Cardiovascular exam: Present: RRR, +S1, +S2. Absent: JVD, systolic murmur - GI/Abdominal Additional comments: no RUQ tenderness, no hepatomegaly, no petechiae - Extremities Exam Extremities exam: Present: normal capillary refill. Absent: calf tenderness - Neurological Exam Neurological exam: Present: no focal deficits - Psychiatric Psychiatric exam: Present: normal affect. Absent: agitated, depressed - Skin Skin exam: Present: normal color. Absent: cyanosis Internal Med - H&P Results - Labs CBC & Chem 7: 07/23/17 17:28 07/23/17 17:28 - EKG Data EKG comments: 07/23/17 21:32 Sinus tachy, no ischemic changes - Diagnostic Studies Chest x-ray Status: image reviewed by me Additional comments: no effusion, no consolidations suggesting pneumonia <Dustin Davies - Last Filed: 07/24/17 07:06> Date of Encounter: 07/24/17 Internal Medicine - H&P: HPI History of present illness: Mr. Sosa is a 61 year old male [employer] PM: A 10-system review of systems was performed and is negative for pertinent findings except as documented above in the HPI. - Constitutional Vitals: Temp Pulse Resp BP Pulse Ox 98.0 F 110 18 147/73 96 07/24/17 04:15 07/24/17 04:15 07/24/17 04:15 07/24/17 04:15 07/24/17 04:15 Internal Med - H&P Results - Labs CBC & Chem 7: 07/24/17 05:29 07/24/17 05:29 Labs: Short CBC 07/24/17 Range/Units 05:29 WBC 6.9 (4.3-11.1) K/mcL Hgb 11.3 L D (12.9-16.9) g/dL Hct 35.9 L (37.5-50.1) % Plt Count 107 L (140-400) K/mcL Neutrophils # 6.5 (1.6-8.9) K/mcL BMP 07/24/17 05:29 Sodium 135 L Potassium 4.2 Chloride 92 L Carbon Dioxide 42 H* BUN 21 Creatinine 0.51 L Glucose 274 H Calcium 8.5 L Cardiac Enzymes 07/24/17 Range/Units 05:29 Troponin I < 0.03 (< 0.04) ng/mL Liver Function 07/24/17 Range/Units 05:29 Total Bilirubin 0.6 (0.3-1.0) mg/dL AST 21 (13-39) Units/L ALT 36 (7-52) Units/L Alkaline Phosphatase 101 (34-104) Units/L Albumin 3.4 L (3.5-5.7) g/dL - Attending Attestation I have seen and examined patient independently. I have discussed with resident physician Dr Ayers regarding the management plan. Agree with the documentation.
[2017-07-23] MEDS: *HR* LORazepam 2 MG/ML VIAL IVP PRN (23:01)
[2017-07-23] MEDS: Budesonide/Formoterol 160/4.5 MDI IH SCH (23:07)
[2017-07-23] MEDS: Nicotine 21 MG PATCH.TD24 TD SCH (23:33)
[2017-07-23] MEDS: *HR* Heparin 5,000 UNIT/ML VIAL SQ SCH (23:36)
[2017-07-24] MEDS: *HR* LORazepam 2 MG/ML VIAL IVP PRN ×4 (01:10→17:27)
[2017-07-24] MEDS: MethylPREDNISolone 40 MG/ML VIAL IVP SCH ×4 (01:10→20:33)
[2017-07-24 06:20] LABS: INR 1.1; Prothrombin Time 11.4 Seconds (9.4-12.1)
[2017-07-24] MEDS: *HR* Heparin 5,000 UNIT/ML VIAL SQ SCH ×2 (06:21→17:26)
[2017-07-24 06:34] LABS: Hematocrit 35.9 % (37.5-50.1); Immature Granulocytes % 0.7 % (0-4); Lymphocytes # 0.3 K/mcL (0.6-4.6); Lymphocytes % 3.9 %; Mean Corpuscular HGB Conc 31.5 g/dL (31.6-35.5); Mean Corpuscular Hemoglobin 28.9 pg (28.0-33.3); Mean Corpuscular Volume 91.8 fL (83.0-100.0); Mean Platelet Volume 9.9 fL (9.4-12.4); Monocytes # 0.1 K/mcL (0.0-1.3); Monocytes % 1.9 %; Neutrophils # 6.5 K/mcL (1.6-8.9); Platelet Count 107 K/mcL (140-400); Red Blood Count 3.91 M/mcL (4.19-5.50); Segmented Neutrophils % 93.5 %
[2017-07-24 06:35] LABS: Hemoglobin 11.3 g/dL (12.9-16.9)
[2017-07-24 06:44] LABS: Alanine Aminotransferase 36 Units/L (7-52); Albumin 3.4 g/dL (3.5-5.7); Alkaline Phosphatase 101 Units/L (34-104); Aspartate Amino Transferase 21 Units/L (13-39); BUN/Creatinine Ratio 41 (6-26); Bilirubin,Total 0.6 mg/dL (0.3-1.0); Blood Urea Nitrogen 21 mg/dL (8-23); Calcium 8.5 mg/dL (8.6-10.3); Carbon Dioxide 42 mEq/L (23-29); Chloride 92 mEq/L (98-107); Globulin 1.7 g/dL (2.4-3.5); Glucose 274 mg/dL (70-105); Osmolality,Calculated 293 (280-300); Potassium 4.2 mEq/L (3.5-5.1); Sodium 135 mEq/L (136-145); Total Protein 5.1 g/dL (6.4-8.9); eGFR For African Americans > 60 (> 60); eGFR For Non-African Americans > 60 (> 60)
[2017-07-24] MEDS: Nicotine 21 MG PATCH.TD24 TD SCH (09:28)
[2017-07-24] MEDS: Budesonide/Formoterol 160/4.5 MDI IH SCH ×2 (10:22→20:04)
[2017-07-24] MEDS: Ipratropium/Albuterol Neb 3 ML IH PRN ×2 (10:22→20:07)
--- NOTE | 2017-07-24 18:14 | Internal Med Progress Note ---
Date of Encounter: 07/24/17 Time of Encounter: 18:12 - Assessment and plan (1) Acute exacerbation of chronic obstructive airways disease Current Visit: No Status: Acute Assessment and plan: Patient is known to have a COPD. Admitted with a worsening shortness of breath/increased cough/change in color of sputum. Presently using accessory muscles of respiration. He has a polyphonic rhonchi. Maintaining his oxygen saturation above 92. Plan: Intravenous levofloxacin 750 mg every 24 hours. Because her prednisone 40 mg every 8 hours. Inhale bronchodilators every 4 hours. (2) Tobacco abuse Current Visit: No Status: Chronic Assessment and plan: I spent 50 minutes with the patient regarding cessation of the tobacco. (3) Resting tremor Current Visit: No Status: Chronic Assessment and plan: Symptoms under control (4) Elevated troponin Current Visit: No Status: Acute Assessment and plan: Likely secondary to demand ischemia (5) Chronic hepatitis C Current Visit: No Status: Chronic Qualifiers: Hepatic coma status: without hepatic coma Qualified Code(s): B18.2 - Chronic viral hepatitis C (6) DVT prophylaxis Current Visit: No Status: Acute Assessment and plan: Heparin - Subjective Interval history: Patient seen and examined. Chart reviewed. Patient is comfortably in bed. Patient does have a shortness of breath. - Constitutional Vitals: Temp Pulse Resp BP Pulse Ox 98.5 F 108 16 124/74 95 07/24/17 16:30 07/24/17 16:30 07/24/17 16:30 07/24/17 16:30 07/24/17 16:30 General appearance: Present: A&O X 3, no acute distress - Head Head exam: Present: atraumatic, normocephalic - Eye Eye exam: Present: PERRL, conjuntiva pink, sclera anicteric Pupils: Present: PERRL - Neck Neck exam general surgery: Present: supple, trachea midline. Absent: lymphadenopathy - Respiratory Respiratory exam: Present: CTAB. Absent: accessory muscle use, rales, rhonchi, wheezes - Cardiovascular Cardiovascular exam: Present: RRR, +S1, +S2. Absent: diastolic murmur, gallop, rubs, systolic murmur - GI/Abdominal GI/Abdominal exam: Present: normal bowel sounds, soft, no peritoneal signs. Absent: distended, tenderness - Extremities Exam Extremities exam: Present: warm, radial pulses palpable and symmetrical. Absent : calf tenderness, cyanotic, pedal edema - Neurological Exam Neurological exam: Present: CN II-XII intact, oriented X3, no focal deficits. Absent: pronater drift, facial droop, speech deficit - Skin Skin exam: Present: dry, intact Internal Medicine: Result - Labs CBC & Chem 7: 07/24/17 05:29 07/24/17 05:29 Labs: Short CBC 07/24/17 Range/Units 05:29 WBC 6.9 (4.3-11.1) K/mcL Hgb 11.3 L D (12.9-16.9) g/dL Hct 35.9 L (37.5-50.1) % Plt Count 107 L (140-400) K/mcL Neutrophils # 6.5 (1.6-8.9) K/mcL BMP 07/24/17 05:29 Sodium 135 L Potassium 4.2 Chloride 92 L Carbon Dioxide 42 H* BUN 21 Creatinine 0.51 L Glucose 274 H Calcium 8.5 L Cardiac Enzymes 07/24/17 Range/Units 05:29 Troponin I < 0.03 (< 0.04) ng/mL Liver Function 07/24/17 Range/Units 05:29 Total Bilirubin 0.6 (0.3-1.0) mg/dL AST 21 (13-39) Units/L ALT 36 (7-52) Units/L Alkaline Phosphatase 101 (34-104) Units/L Albumin 3.4 L (3.5-5.7) g/dL - ABG Interpretation ABG results: PT/INR, D-dimer PT 11.4 Seconds (9.4-12.1) 07/24/17 05:29 Consult Discharge Plan - Plan [facility]errals: [facility] [Primary Care Provider] -
[2017-07-24] MEDS: Levofloxacin 750 MG/150 ML 750 MG/150 ML BAG IVPB SCH (20:33)
[2017-07-25] MEDS: MethylPREDNISolone 40 MG/ML VIAL IVP SCH ×4 (04:49→23:51)
[2017-07-25] MEDS: *HR* LORazepam 2 MG/ML VIAL IVP PRN ×3 (04:55→16:45)
[2017-07-25] MEDS: *HR* Heparin 5,000 UNIT/ML VIAL SQ SCH ×2 (06:54→17:24)
[2017-07-25] MEDS: Ipratropium/Albuterol Neb 3 ML IH PRN ×2 (07:40→22:41)
[2017-07-25] MEDS: Budesonide/Formoterol 160/4.5 MDI IH SCH ×2 (07:40→22:39)
[2017-07-25] MEDS: Nicotine 21 MG PATCH.TD24 TD SCH (08:48)
[2017-07-25] MEDS: Levofloxacin 750 MG/150 ML 750 MG/150 ML BAG IVPB SCH (08:49)
[2017-07-25] MEDS ORDERED: Levofloxacin 750 MG/150 ML 750 MG/150 ML BAG IVPB SCH (09:00)
--- NOTE | 2017-07-25 18:29 | Electrocardiograph Report ---
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
--- NOTE | 2017-07-25 18:31 | Electrocardiograph Report ---
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
--- NOTE | 2017-07-25 18:42 | Internal Med Progress Note ---
Date of Encounter: 07/27/17 Time of Encounter: 18:42 - Assessment and plan (1) Acute exacerbation of chronic obstructive airways disease Current Visit: No Status: Acute Assessment and plan: Patient is known to have a COPD. Admitted with a worsening shortness of breath/increased cough/change in color of sputum. Presently using accessory muscles of respiration. He has a polyphonic rhonchi. Maintaining his oxygen saturation above 92. Plan: Intravenous levofloxacin 750 mg every 24 hours. Because her prednisone 40 mg every 8 hours. Inhale bronchodilators every 4 hours. 07/25/2017 Patient still has occasional bilateral polyphonic wheezes. Patient still using accessory muscles of respiration. Unable to get out of the bed and walk couple of steps. Plan: Continue antibiotics/steroids/bronchodilators (2) Tobacco abuse Current Visit: No Status: Chronic Assessment and plan: I spent 50 minutes with the patient regarding cessation of the tobacco. (3) Resting tremor Current Visit: No Status: Chronic Assessment and plan: Symptoms under control (4) Elevated troponin Current Visit: Yes Status: Acute Assessment and plan: Likely secondary to demand ischemia (5) Chronic hepatitis C Current Visit: No Status: Chronic Qualifiers: Hepatic coma status: without hepatic coma Qualified Code(s): B18.2 - Chronic viral hepatitis C (6) DVT prophylaxis Current Visit: No Status: Acute Assessment and plan: Heparin - Subjective Interval history: Patient seen and examined. Chart reviewed. Patient is comfortably in bed. Patient does have a shortness of breath. 07/25/2017 I examined this patient along with the patient's registered nurse. Patient is comfortably lying in bed. Patient is complaining of occasionally shortness of breath. Patient denies chest pain, nausea, vomiting, abdominal pain, dizziness and diarrhea. - Constitutional Vitals: Temp Pulse Resp BP Pulse Ox 98.1 F 112 20 134/64 94 07/25/17 15:57 07/25/17 15:57 07/25/17 15:57 07/25/17 15:57 07/25/17 15:57 General appearance: Present: A&O X 3, no acute distress - Head Head exam: Present: atraumatic, normocephalic - Eye Eye exam: Present: PERRL, conjuntiva pink, sclera anicteric Pupils: Present: PERRL - Neck Neck exam general surgery: Present: supple, trachea midline. Absent: lymphadenopathy - Respiratory Respiratory exam: Present: CTAB. Absent: accessory muscle use, rales, rhonchi, wheezes - Cardiovascular Cardiovascular exam: Present: RRR, +S1, +S2. Absent: diastolic murmur, gallop, rubs, systolic murmur - GI/Abdominal GI/Abdominal exam: Present: normal bowel sounds, soft, no peritoneal signs. Absent: distended, tenderness - Extremities Exam Extremities exam: Present: warm, radial pulses palpable and symmetrical. Absent : calf tenderness, cyanotic, pedal edema - Neurological Exam Neurological exam: Present: CN II-XII intact, oriented X3, no focal deficits. Absent: pronater drift, facial droop, speech deficit - Skin Skin exam: Present: dry, intact Internal Medicine: Result - Labs CBC & Chem 7: 07/24/17 05:29 07/24/17 05:29 - ABG Interpretation ABG results: PT/INR, D-dimer PT 11.4 Seconds (9.4-12.1) 07/24/17 05:29 Consult Discharge Plan - Plan [facility]errals: [facility] [Primary Care Provider] -
[2017-07-26] MEDS: *HR* Heparin 5,000 UNIT/ML VIAL SQ SCH ×2 (05:26→17:50)
[2017-07-26] MEDS: *HR* LORazepam 2 MG/ML VIAL IVP PRN ×3 (05:26→17:50)
[2017-07-26] MEDS: Budesonide/Formoterol 160/4.5 MDI IH SCH ×2 (11:25→21:52)
[2017-07-26] MEDS: Ipratropium/Albuterol Neb 3 ML IH PRN ×2 (11:25→21:52)
[2017-07-26] MEDS: Nicotine 21 MG PATCH.TD24 TD SCH (12:41)
[2017-07-26] MEDS: MethylPREDNISolone 40 MG/ML VIAL IVP SCH ×2 (12:42→17:50)
[2017-07-26] MEDS: levoFLOXacin 750 MG TABLET PO SCH (12:42)
--- NOTE | 2017-07-26 18:30 | Internal Med Progress Note ---
Date of Encounter: 07/27/17 Time of Encounter: 18:29 - Assessment and plan (1) Acute exacerbation of chronic obstructive airways disease Current Visit: No Status: Acute Assessment and plan: Patient is known to have a COPD. Admitted with a worsening shortness of breath/increased cough/change in color of sputum. Presently using accessory muscles of respiration. He has a polyphonic rhonchi. Maintaining his oxygen saturation above 92. Plan: Intravenous levofloxacin 750 mg every 24 hours. Because her prednisone 40 mg every 8 hours. Inhale bronchodilators every 4 hours. 07/25/2017 Patient still has occasional bilateral polyphonic wheezes. Patient still using accessory muscles of respiration. Unable to get out of the bed and walk couple of steps. Plan: Continue antibiotics/steroids/bronchodilators 07/26/2017 Patient still has bilateral polyphonic wheezes but the frequency is better as compared to yesterday. Patient is no more using accessory muscles of respiration. Patient unable to get out of the bed. Plan: Continue antibiotics ( Levofloxacin : Day3)/steroids/bronchodilators (2) Tobacco abuse Current Visit: No Status: Chronic Assessment and plan: I spent 50 minutes with the patient regarding cessation of the tobacco. (3) Resting tremor Current Visit: No Status: Chronic Assessment and plan: Symptoms under control (4) Elevated troponin Current Visit: Yes Status: Acute Assessment and plan: Likely secondary to demand ischemia (5) Chronic hepatitis C Current Visit: No Status: Chronic Qualifiers: Hepatic coma status: without hepatic coma Qualified Code(s): B18.2 - Chronic viral hepatitis C (6) DVT prophylaxis Current Visit: No Status: Acute Assessment and plan: Heparin - Subjective Interval history: Patient seen and examined. Chart reviewed. Patient is comfortably in bed. Patient does have a shortness of breath. 07/26/2017 Patient seen and examined. Chart reviewed. Patient is lying in a bed comfortably. Patient complains occasionally shortness of breath/wheezing. Patient denies chest pain, nausea, vomiting, abdominal pain, - Constitutional Vitals: Temp Pulse Resp BP Pulse Ox 98.4 F 102 16 124/79 97 07/26/17 11:57 07/26/17 11:57 07/26/17 11:57 07/26/17 11:57 07/26/17 11:57 General appearance: Present: A&O X 3, no acute distress - Head Head exam: Present: atraumatic, normocephalic - Eye Eye exam: Present: PERRL, conjuntiva pink, sclera anicteric Pupils: Present: PERRL - Neck Neck exam general surgery: Present: supple, trachea midline. Absent: lymphadenopathy - Respiratory Respiratory exam: Present: CTAB. Absent: accessory muscle use, rales, rhonchi, wheezes - Cardiovascular Cardiovascular exam: Present: RRR, +S1, +S2. Absent: diastolic murmur, gallop, rubs, systolic murmur - GI/Abdominal GI/Abdominal exam: Present: normal bowel sounds, soft, no peritoneal signs. Absent: distended, tenderness - Extremities Exam Extremities exam: Present: warm, radial pulses palpable and symmetrical. Absent : calf tenderness, cyanotic, pedal edema - Neurological Exam Neurological exam: Present: CN II-XII intact, oriented X3, no focal deficits. Absent: pronater drift, facial droop, speech deficit - Skin Skin exam: Present: dry, intact Internal Medicine: Result - Labs CBC & Chem 7: 07/24/17 05:29 07/24/17 05:29 - ABG Interpretation ABG results: PT/INR, D-dimer PT 11.4 Seconds (9.4-12.1) 07/24/17 05:29 Consult Discharge Plan - Plan Referrals: [facility] [Primary Care Provider] -
[2017-07-27] MEDS: MethylPREDNISolone 40 MG/ML VIAL IVP SCH ×5 (00:26→23:38)
[2017-07-27] MEDS: *HR* LORazepam 2 MG/ML VIAL IVP PRN ×4 (00:26→19:22)
[2017-07-27] MEDS: *HR* Heparin 5,000 UNIT/ML VIAL SQ SCH ×2 (05:46→19:00)
[2017-07-27] MEDS: Nicotine 21 MG PATCH.TD24 TD SCH (08:25)
[2017-07-27] MEDS: levoFLOXacin 750 MG TABLET PO SCH (08:25)
[2017-07-27] MEDS: Budesonide/Formoterol 160/4.5 MDI IH SCH ×2 (10:09→19:58)
--- NOTE | 2017-07-27 18:43 | Internal Med Progress Note ---
Date of Encounter: 07/27/17 Time of Encounter: 18:41 - Assessment and plan (1) Acute exacerbation of chronic obstructive airways disease Current Visit: No Status: Acute Assessment and plan: Patient is known to have a COPD. Admitted with a worsening shortness of breath/increased cough/change in color of sputum. Presently using accessory muscles of respiration. He has a polyphonic rhonchi. Maintaining his oxygen saturation above 92. Plan: Intravenous levofloxacin 750 mg every 24 hours. Because her prednisone 40 mg every 8 hours. Inhale bronchodilators every 4 hours. 07/25/2017 Patient still has occasional bilateral polyphonic wheezes. Patient still using accessory muscles of respiration. Unable to get out of the bed and walk couple of steps. Plan: Continue antibiotics/steroids/bronchodilators 07/26/2017 Patient still has bilateral polyphonic wheezes but the frequency is better as compared to yesterday. Patient is no more using accessory muscles of respiration. Patient unable to get out of the bed. Plan: Continue antibiotics ( Levofloxacin : Day3)/steroids/bronchodilators 07/27/2017. Patient's breathing much improved along with the wheezing. Patient is able to walk a few steps in the room. Patient is requesting that he would like to go home tomorrow. Plan: Continue antibiotics(Levofloxacin :Day4)/steroids/bronchodilators (2) Tobacco abuse Current Visit: No Status: Chronic Assessment and plan: I spent 50 minutes with the patient regarding cessation of the tobacco. (3) Resting tremor Current Visit: No Status: Chronic Assessment and plan: Symptoms under control (4) Elevated troponin Current Visit: Yes Status: Acute Assessment and plan: Likely secondary to demand ischemia (5) Chronic hepatitis C Current Visit: No Status: Chronic Qualifiers: Hepatic coma status: without hepatic coma Qualified Code(s): B18.2 - Chronic viral hepatitis C (6) DVT prophylaxis Current Visit: No Status: Acute Assessment and plan: Heparin - Subjective Interval history: Patient seen and examined. Chart reviewed. Patient is comfortably in bed. Patient does have a shortness of breath. 07/26/2017 Patient seen and examined. Chart reviewed. Patient is lying in a bed comfortably. Patient complains occasionally shortness of breath/wheezing. Patient denies chest pain, nausea, vomiting, abdominal pain, 07/27/2017. Today I examined this patient along with the patient's registered nurse. Patient unable to sit at the bedside. Patient still has occasional spells of shortness of breath. Patient denies any chest pain. - Constitutional Vitals: Temp Pulse Resp BP Pulse Ox 97.7 F 100 20 135/81 92 07/27/17 16:00 07/27/17 16:00 07/27/17 16:00 07/27/17 16:00 07/27/17 16:00 General appearance: Present: A&O X 3, no acute distress - Head Head exam: Present: atraumatic, normocephalic - Eye Eye exam: Present: PERRL, conjuntiva pink, sclera anicteric Pupils: Present: PERRL - Neck Neck exam general surgery: Present: supple, trachea midline. Absent: lymphadenopathy - Respiratory Respiratory exam: Present: CTAB. Absent: accessory muscle use, rales, rhonchi, wheezes - Cardiovascular Cardiovascular exam: Present: RRR, +S1, +S2. Absent: diastolic murmur, gallop, rubs, systolic murmur - GI/Abdominal GI/Abdominal exam: Present: normal bowel sounds, soft, no peritoneal signs. Absent: distended, tenderness - Extremities Exam Extremities exam: Present: warm, radial pulses palpable and symmetrical. Absent : calf tenderness, cyanotic, pedal edema - Neurological Exam Neurological exam: Present: CN II-XII intact, oriented X3, no focal deficits. Absent: pronater drift, facial droop, speech deficit - Skin Skin exam: Present: dry, intact Internal Medicine: Result - Labs CBC & Chem 7: 07/24/17 05:29 07/24/17 05:29 - ABG Interpretation ABG results: PT/INR, D-dimer PT 11.4 Seconds (9.4-12.1) 07/24/17 05:29 Consult Discharge Plan - Plan Referrals: [facility] [Primary Care Provider] -
[2017-07-27] MEDS: Ipratropium/Albuterol Neb 3 ML IH PRN (19:58)
[2017-07-28] MEDS: *HR* LORazepam 2 MG/ML VIAL IVP PRN ×3 (05:01→18:17)
[2017-07-28] MEDS: *HR* Heparin 5,000 UNIT/ML VIAL SQ SCH ×2 (05:02→18:31)
[2017-07-28 05:15] LABS: Hematocrit 34.7 % (37.5-50.1); Hemoglobin 11.3 g/dL (12.9-16.9); Immature Granulocytes % 1.1 % (0-4); Immature Platelets 2.7 % (1.1-6.1); Lymphocytes # 0.2 K/mcL (0.6-4.6); Lymphocytes % 3.2 %; Mean Corpuscular HGB Conc 32.6 g/dL (31.6-35.5); Mean Corpuscular Hemoglobin 29.1 pg (28.0-33.3); Mean Corpuscular Volume 89.4 fL (83.0-100.0); Mean Platelet Volume 10.4 fL (9.4-12.4); Monocytes # 0.2 K/mcL (0.0-1.3); Monocytes % 2.6 %; Neutrophils # 6.1 K/mcL (1.6-8.9); Red Blood Count 3.88 M/mcL (4.19-5.50); Red Cell Distribution Width 12.7 % (11.5-14.5); Segmented Neutrophils % 93.1 %
[2017-07-28 05:17] LABS: Platelet Count 90 K/mcL (140-400)
[2017-07-28 05:52] LABS: Alanine Aminotransferase 27 Units/L (7-52); Albumin 3.3 g/dL (3.5-5.7); Albumin/Globulin Ratio 2.1 (1.1-2.2); Alkaline Phosphatase 111 Units/L (34-104); Aspartate Amino Transferase 11 Units/L (13-39); BUN/Creatinine Ratio 50 (6-26); Bilirubin,Total 0.7 mg/dL (0.3-1.0); Blood Urea Nitrogen 31 mg/dL (8-23); Calcium 8.5 mg/dL (8.6-10.3); Carbon Dioxide 40 mEq/L (23-29); Chloride 93 mEq/L (98-107); Globulin 1.6 g/dL (2.4-3.5); Glucose 350 mg/dL (70-105); Osmolality,Calculated 301 (280-300); Potassium 4.1 mEq/L (3.5-5.1); Sodium 135 mEq/L (136-145); Total Protein 4.9 g/dL (6.4-8.9); eGFR For African Americans > 60 (> 60); eGFR For Non-African Americans > 60 (> 60)
--- NOTE | 2017-07-28 09:32 | Electrocardiograph Report ---
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
[2017-07-28] MEDS: MethylPREDNISolone 40 MG/ML VIAL IVP SCH ×2 (10:31→18:30)
[2017-07-28] MEDS: levoFLOXacin 750 MG TABLET PO SCH (10:31)
[2017-07-28] MEDS: Nicotine 21 MG PATCH.TD24 TD SCH (10:32)
[2017-07-28] MEDS: Budesonide/Formoterol 160/4.5 MDI IH SCH ×2 (10:50→20:38)
[2017-07-28] MEDS: Ipratropium/Albuterol Neb 3 ML IH PRN ×2 (10:52→20:38)
[2017-07-28 11:44] VITALS: BP 131/77
--- NOTE | 2017-07-28 15:55 | Discharge Summary ---
Date of Encounter: 07/28/17 Time of Encounter: 15:52 - Discharge Diagnosis (1) Acute exacerbation of chronic obstructive airways disease Priority: Primary Status: Acute (2) Tobacco abuse Priority: Secondary Status: Chronic (3) Resting tremor Priority: Secondary Status: Chronic (4) Elevated troponin Priority: Secondary Status: Acute (5) Chronic hepatitis C Priority: Secondary Status: Chronic Qualifiers: Hepatic coma status: without hepatic coma Qualified Code(s): B18.2 - Chronic viral hepatitis C (6) DVT prophylaxis Priority: Secondary Status: Acute - Discharge Medications Prescriptions: levoFLOXacin [Levaquin] 750 mg PO DAILY #3 tablet predniSONE [Prednisone] 50 mg PO DAILY #3 tablet Home Medications: Albuterol Sulfate [Ventolin Hfa] 2 puff IH Q6H PRN 07/07/17 [History] Bisacodyl [Woman's Laxative] 10 mg PO DAILY PRN 07/07/17 [History] Budesonide/Formoterol 160/4.5 [Symbicort 160/4.5] 2 puff IH BID 07/07/17 [ History] Docusate [Colace] 100 mg PO BID 07/07/17 [History] Naloxone HCl [Narcan] 4 mg NS ONCE PRN 07/07/17 [History] Nicotine Patch [Nicoderm] 21 mg TD DAILY 07/07/17 [History] Nicotine Polacrilex [Nicotine Lozenge] 2 mg BC Q4H PRN 07/07/17 [History] Omeprazole [PriLOSEC] 20 mg PO DAILY 07/07/17 [History] Ondansetron HCl [Zofran] 4 mg PO TID PRN 07/07/17 [History] Polyethylene Glycol 3350 [MiraLAX] 17 gm PO BID PRN 07/07/17 [History] Sildenafil Citrate [Viagra] 50 mg PO AD PRN 07/07/17 [History] Ipratropium/Albuterol Neb [Duoneb] 3 ml IH Q6H PRN #30 inhsol 07/22/17 [Rx] levoFLOXacin [Levaquin] 750 mg PO DAILY #3 tablet 07/28/17 [Rx] predniSONE [Prednisone] 50 mg PO DAILY #3 tablet 07/28/17 [Rx] Allergies/Adverse Reactions: 3 Allergy/AdvReac Type Severity Reaction Status Date / Time haloperidol [From Haldol] AdvReac Muscle Pain Verified 07/23/17 17:12 [place] AdvReac Weakness Verified 07/23/17 17:12 Procedures/tests Complete & Pending: Procedures Performed prior 72 hours Category Date Time Status EKG [ECG 12 lead ECG] [ECG] Stat Y 07/27/17 08:32 Completed Date of admission: 07/24/17 03:02 [facility] Discharging clinician: Daniel Dowling - Patient Status Disposition: Home, Self-Care Condition: Good Functional capacity at discharge: uses cane/walker Overall status at discharge: patient is progressing back to baseline - Discharge Instructions Follow Up With: [facility] [Primary Care Provider] - - Diet and Activity Activity: as per physical therapy Diet: low fat, low cholesterol, low salt diet Interval History: Mr. Sosa is a 61 year old male, [facility], PMH chronic hep C, schizophrenia, COPD on 3L nasal cannula O2, everyday 1ppd smoker, who presents after recent admission for COPD exacerbation+leaving [facility] on 07/21/17. Patient denies fever, productive cough, chest pain, n/v/d, recent travel, or leg pain. At the time of encounter, Mr. Sosa is comfortable, though breathing rate increased, saturating at 96%. Hospital course: Patient was hospitalized. Patient was started on antibiotics/steroids/ bronchodilators. Patient responded well to this treatment. Patient responded was not as quick as what expected. But in a delayed response patient came back to baseline. Patient is keen to go home today. I requested patient to stay overnight as the weather was pretty bad. But patient insisted to go home. Plan: Patient will go home on levofloxacin 750 mg once a day for 3 days. Patient will go home on prednisone 50 mg per day for 3 days. Patient does have inhaled bronchodilatation at home. Patient will follow up with the [facility]. All questions answered. At the time of discharge patient does not have any questions, concerns, updates or recommendation. - Time Spent with Patient Total time spent providing and/or coordinating discharge services: - Constitutional Vitals: Temp Pulse Resp BP Pulse Ox 98.8 F 107 16 131/77 97 07/28/17 11:40 07/28/17 11:40 07/28/17 11:40 07/28/17 11:40 07/28/17 11:40 General appearance: Present: A&O X 3, no acute distress - Head Head exam: Present: atraumatic, normocephalic - Eye Eye exam: Present: PERRL, conjuntiva pink, sclera anicteric Pupils: Present: PERRL - Neck Neck exam general surgery: Present: supple, trachea midline. Absent: lymphadenopathy - Respiratory Respiratory exam: Present: CTAB. Absent: accessory muscle use, rales, rhonchi, wheezes - Cardiovascular Cardiovascular exam: Present: RRR, +S1, +S2. Absent: diastolic murmur, gallop, rubs, systolic murmur - GI/Abdominal GI/Abdominal exam: Present: normal bowel sounds, soft, no peritoneal signs. Absent: distended, tenderness - Extremities Exam Extremities exam: Present: warm, radial pulses palpable and symmetrical. Absent : calf tenderness, cyanotic, pedal edema - Neurological Exam Neurological exam: Present: CN II-XII intact, oriented X3, no focal deficits. Absent: pronater drift, facial droop, speech deficit - Skin Skin exam: Present: dry, intact
== END 2017-07-28 22:15 | disposition home or self-care (01) | DRG 191 ==
LOC: 2ANU 17:11 → EMEROO 17:11 → 2ANU 21:36
PROVIDERS: ADMIT Internal Medicine; ATTEND Internal Medicine

== ENCOUNTER 2017-08-16 12:11 | Inpatient (IN) ==
[2017-08-16] MEDS ORDERED: Ipratropium/Albuterol Neb 3 ML IH ONE (12:14)
[2017-08-16] MEDS ORDERED: methylPREDNISolone 125 MG/2 ML VIAL IVP ONE (12:14)
--- NOTE | 2017-08-16 12:16 | Emergency Department Note ---
Disposition Clinical Impression: Acute exacerbation of chronic obstructive airways disease Disposition: Home, Self-Care Condition: Fair General Adult HPI - General Chief complaint: ED Shortness of Breath/Dyspnea Stated complaint: Difficulty Breathing Time Seen by Provider: 08/16/17 12:13 - Related Data Home Medications Medication Instructions Recorded Confirmed Albuterol Sulfate [Ventolin Hfa] 2 puff IH Q6H PRN 07/07/17 08/05/17 Bisacodyl [Woman's Laxative] 10 mg PO DAILY PRN 07/07/17 08/05/17 Budesonide/Formoterol 160/4.5 2 puff IH BID 07/07/17 08/05/17 [Symbicort 160/4.5] Docusate [Colace] 100 mg PO BID 07/07/17 08/05/17 Naloxone HCl [Narcan] 4 mg NS ONCE PRN 07/07/17 08/05/17 Nicotine Patch [Nicoderm] 21 mg TD DAILY 07/07/17 08/05/17 Nicotine Polacrilex [Nicotine 2 mg BC Q4H PRN 07/07/17 08/05/17 Lozenge] Omeprazole [PriLOSEC] 20 mg PO DAILY 07/07/17 08/05/17 Ondansetron HCl [Zofran] 4 mg PO TID PRN 07/07/17 08/05/17 Polyethylene Glycol 3350 [MiraLAX] 17 gm PO BID PRN 07/07/17 08/05/17 Sildenafil Citrate [Viagra] 50 mg PO AD PRN 07/07/17 08/05/17 Previous Rx's Medication Instructions Recorded Ipratropium/Albuterol Neb [Duoneb] 3 ml IH Q6H PRN #30 inhsol 07/22/17 levoFLOXacin [Levaquin] 750 mg PO DAILY #4 tablet 08/12/17 predniSONE [PredniSONE] 40 mg PO DAILY #4 tablet 08/12/17 Allergies Allergy/AdvReac Type Severity Reaction Status Date / Time haloperidol [From Haldol] AdvReac Muscle Pain Verified 08/05/17 05:57 [place] AdvReac Weakness Verified 08/05/17 05:57 Past Medical History - Past Medical History Medical history: Reports: COPD, hepatitis, other Surgical history: Reports: cholecystectomy Psychiatric history: Reports: anxiety, bipolar, depression, schizophrenia - Social History Smoking Status: Current every day smoker Smokeless Tobacco Status: No Alcohol use: Reports: none Drug use: Reports: other Course Vital Signs Temperature 97.4 F L 08/16/17 12:13 Pulse Rate 146 08/16/17 12:13 Respiratory Rate 28 08/16/17 12:13 Blood Pressure 111/82 08/16/17 12:13 O2 Sat by Pulse Oximetry 98 08/16/17 12:13 Temperature 98.4 F 08/16/17 14:46 Pulse Rate 119 08/16/17 14:46 Respiratory Rate 16 08/16/17 15:33 Blood Pressure 109/53 08/16/17 14:46 O2 Sat by Pulse Oximetry 98 08/16/17 15:33 Oxygen Delivery Oxygen Delivery Bipap Medical Decision Making - Lab Data Result diagrams: 08/16/17 12:21 08/16/17 12:21 Lab Results 08/16/17 08/16/17 08/16/17 Range/Units 12:21 12:21 12:21 WBC 11.3 H D (4.3-11.1) K/mcL RBC 4.38 (4.19-5.50) M/mcL Hgb 12.7 L D (12.9-16.9) g/dL Hct 40.5 (37.5-50.1) % MCV 92.5 (83.0-100.0) fL MCH 29.0 (28.0-33.3) pg MCHC 31.4 L (31.6-35.5) g/dL RDW 14.7 H (11.5-14.5) % Plt Count 197 D (140-400) K/mcL MPV 9.5 (9.4-12.4) fL Immature Gran % 2.9 (0-4) % Seg Neutrophils % 55.4 % Lymphocytes % 30.9 % Monocytes % 9.3 % Eosinophils % 1.0 % Basophils % 0.5 % Neutrophils # 6.3 (1.6-8.9) K/mcL Lymphocytes # 3.5 (0.6-4.6) K/mcL Monocytes # 1.1 (0.0-1.3) K/mcL Eosinophils # 0.1 (0.0-0.6) K/mcL Basophils # 0.1 (0.0-0.2) K/mcL Nucleated RBCs/100 WBC 0.2 H (0) /100 WBC VBG pH (7.32-7.42) pH Units VBG pCO2 (41-51) mmHg VBG pO2 (25-50) mmHg VBG HCO3 (21-27) mEq/L Sodium 138 (136-145) mEq/L Potassium 3.9 (3.5-5.1) mEq/L Chloride 91 L (98-107) mEq/L Carbon Dioxide 41 H* (23-29) mEq/L BUN 16 (8-23) mg/dL Creatinine 0.63 L (0.70-1.30) mg/dL Est GFR ( Amer) > 60 (> 60) Est GFR (Non-Af Amer) > 60 (> 60) BUN/Creatinine Ratio 25 (6-26) Glucose 109 H (70-105) mg/dL Calculated Osmolality 288 (280-300) Lactic Acid 2.1 (0.5-2.2) mmol/L Calcium 9.2 (8.6-10.3) mg/dL Troponin I (< 0.04) ng/mL B-Natriuretic Peptide (Less than 100) pg/mL 08/16/17 08/16/17 08/16/17 Range/Units 12:21 12:21 12:38 WBC (4.3-11.1) K/mcL RBC (4.19-5.50) M/mcL Hgb (12.9-16.9) g/dL Hct (37.5-50.1) % MCV (83.0-100.0) fL MCH (28.0-33.3) pg MCHC (31.6-35.5) g/dL RDW (11.5-14.5) % Plt Count (140-400) K/mcL MPV (9.4-12.4) fL Immature Gran % (0-4) % Seg Neutrophils % % Lymphocytes % % Monocytes % % Eosinophils % % Basophils % % Neutrophils # (1.6-8.9) K/mcL Lymphocytes # (0.6-4.6) K/mcL Monocytes # (0.0-1.3) K/mcL Eosinophils # (0.0-0.6) K/mcL Basophils # (0.0-0.2) K/mcL Nucleated RBCs/100 WBC (0) /100 WBC VBG pH 7.37 (7.32-7.42) pH Units VBG pCO2 74 H* (41-51) mmHg VBG pO2 116 H (25-50) mmHg VBG HCO3 43 H (21-27) mEq/L Sodium (136-145) mEq/L Potassium (3.5-5.1) mEq/L Chloride (98-107) mEq/L Carbon Dioxide (23-29) mEq/L BUN (8-23) mg/dL Creatinine (0.70-1.30) mg/dL Est GFR ( Amer) (> 60) Est GFR (Non-Af Amer) (> 60) BUN/Creatinine Ratio (6-26) Glucose (70-105) mg/dL Calculated Osmolality (280-300) Lactic Acid (0.5-2.2) mmol/L Calcium (8.6-10.3) mg/dL Troponin I < 0.03 (< 0.04) ng/mL B-Natriuretic Peptide 42 (Less than 100) pg/mL Critical Care Time Critical Care Time: Yes Total Critical Care Time: 30 Attestation: The high probability of a clinically significant, sudden or life threatening deterioration of the [] system(s) required my full and direct attention, intervention and personal management. The aggregate critical care time was [] minutes. This time is in addition to time spent performing reported procedures but includes the following: [] Data Review and interpretation [] Patient assessment and monitoring of vital signs [] Documentation [] Medication orders and management Attestation Statement - Attestation Attestation: I examined this patient and my medical decision-making was reviewed with the Resident Physician. I agree with the documented findings, disposition and treatment plan as described except to the extent set forth below. [id number] time provided Patient arrives by a lives complaining of dyspnea. BiPAP started prehospital. He has a known history of COPD and recent history of admission for pneumonia. The patient has increased work of breathing with accessory muscle use and tripod posture on exam
[2017-08-16 12:29] LABS: Basophils # 0.1 K/mcL (0.0-0.2); Basophils % 0.5 %; Eosinophils # 0.1 K/mcL (0.0-0.6); Hematocrit 40.5 % (37.5-50.1); Immature Granulocytes % 2.9 % (0-4); Lymphocytes # 3.5 K/mcL (0.6-4.6); Lymphocytes % 30.9 %; Mean Corpuscular HGB Conc 31.4 g/dL (31.6-35.5); Mean Corpuscular Volume 92.5 fL (83.0-100.0); Mean Platelet Volume 9.5 fL (9.4-12.4); Monocytes # 1.1 K/mcL (0.0-1.3); Monocytes % 9.3 %; Nucleated Red Blood Cells 0.2 /100 WBC (0); Platelet Count 197 K/mcL (140-400); Red Blood Count 4.38 M/mcL (4.19-5.50); Red Cell Distribution Width 14.7 % (11.5-14.5); Segmented Neutrophils % 55.4 %
[2017-08-16 12:31] LABS: Hemoglobin 12.7 g/dL (12.9-16.9); Neutrophils # 6.3 K/mcL (1.6-8.9)
[2017-08-16 12:40] LABS: VBG HCO3 43 mEq/L (21-27); VBG PCO2 74 mmHg (41-51); VBG PH 7.37 pH Units (7.32-7.42); VBG PO2 116 mmHg (25-50)
[2017-08-16 12:55] LABS: BUN/Creatinine Ratio 25 (6-26); Blood Urea Nitrogen 16 mg/dL (8-23); Calcium 9.2 mg/dL (8.6-10.3); Carbon Dioxide 41 mEq/L (23-29); Chloride 91 mEq/L (98-107); Glucose 109 mg/dL (70-105); Osmolality,Calculated 288 (280-300); Potassium 3.9 mEq/L (3.5-5.1); Sodium 138 mEq/L (136-145); eGFR For African Americans > 60 (> 60); eGFR For Non-African Americans > 60 (> 60)
--- NOTE | 2017-08-16 13:10 | Emergency Department Note ---
Disposition Clinical Impression: Acute exacerbation of chronic obstructive airways disease Disposition: Home, Self-Care Condition: Fair Time of Disposition: 14:11 SOB HPI - General Chief Complaint: ED Shortness of Breath/Dyspnea Stated Complaint: Difficulty Breathing Time Seen by Provider: 08/16/17 12:13 Source: EMS Limitations: no limitations Nursing Notes Reviewed: Yes Vital Signs Reviewed: Yes - History of Present Illness 61-year-old male presents to the emergency department with shortness of breath. Patient does have history of COPD does see used 2.5 L oxygen at all times. He is already intubated for his COPD. He says he was admitted to the hospital approximately 2 weeks ago for pneumonia as sent home and was doing well. He does have albuterol treatments at home. Patient is a past drug abuser has been clean for 7 months. Patient says that the only pain he is having is in his lungs still feels a burning sensation in his lungs. He said no fevers or chills. She has had this onset of shortness of breath. Patient otherwise is having no complaints. He is not complaining of any headaches, blurry vision, neck pain, back pain, chest pain, abdominal pain, pain with urination, changes in bowel movements, pain or tingling going down the arms or legs or generalized weakness or changes in weight. Pt Subjective Complaint: shortness of breath - Related Data Home Medications Medication Instructions Recorded Confirmed Albuterol Sulfate [Ventolin Hfa] 2 puff IH Q6H PRN 07/07/17 08/05/17 Bisacodyl [Woman's Laxative] 10 mg PO DAILY PRN 07/07/17 08/05/17 Budesonide/Formoterol 160/4.5 2 puff IH BID 07/07/17 08/05/17 [Symbicort 160/4.5] Docusate [Colace] 100 mg PO BID 07/07/17 08/05/17 Naloxone HCl [Narcan] 4 mg NS ONCE PRN 07/07/17 08/05/17 Nicotine Patch [Nicoderm] 21 mg TD DAILY 07/07/17 08/05/17 Nicotine Polacrilex [Nicotine 2 mg BC Q4H PRN 07/07/17 08/05/17 Lozenge] Omeprazole [PriLOSEC] 20 mg PO DAILY 07/07/17 08/05/17 Ondansetron HCl [Zofran] 4 mg PO TID PRN 07/07/17 08/05/17 Polyethylene Glycol 3350 [MiraLAX] 17 gm PO BID PRN 07/07/17 08/05/17 Sildenafil Citrate [Viagra] 50 mg PO AD PRN 07/07/17 08/05/17 Previous Rx's Medication Instructions Recorded Ipratropium/Albuterol Neb [Duoneb] 3 ml IH Q6H PRN #30 inhsol 07/22/17 levoFLOXacin [Levaquin] 750 mg PO DAILY #4 tablet 08/12/17 predniSONE [PredniSONE] 40 mg PO DAILY #4 tablet 08/12/17 Allergies Allergy/AdvReac Type Severity Reaction Status Date / Time haloperidol [From Haldol] AdvReac Muscle Pain Verified 08/05/17 05:57 [place] AdvReac Weakness Verified 08/05/17 05:57 Review of Systems: 10 point review of systems done and negative unless otherwise stated in history of present illness. All systems ED: reviewed and negative except as stated. Review of Systems: As Per HPI Past Medical History - Past Medical History Attestation: Yes The following information was validated with the patient. Medical history: Reports: COPD, hepatitis, other Surgical history: Reports: cholecystectomy Psychiatric history: Reports: anxiety, bipolar, depression, schizophrenia - Social History Smoking Status: Current every day smoker Smokeless Tobacco Status: No Alcohol use: Reports: none Drug use: Reports: other Physical Exam - General Limitations: no limitations General appearance: alert, anxious, in distress - Head Head exam: atraumatic, normocephalic, normal inspection - Eye Eye exam: Present: normal appearance, PERRL, EOMI - ENT ENT exam: normal exam, normal oropharynx, mucous membranes moist - Neck Neck exam: Present: normal inspection, full ROM, trachea midline - Chest Chest inspection: Present: normal inspection, symmetric chest wall rise - Respiratory Respiratory exam: Present: normal lung sounds bilaterally, respiratory distress , wheezes (Bilaterally), accessory muscle use - Cardiovascular Cardiovascular exam: Present: regular rate, normal rhythm, normal heart sounds - Abdominal Exam Abdominal exam: Present: soft, Non-Tender. Absent: tenderness, distention, guarding, rebound, rigidity - Extremities Exam Extremities exam: Present: normal inspection, full ROM. Absent: tenderness, pedal edema - Expanded Lower Extremity Exam Neurovascular/Tendon exam: Present: normal capillary refill. Absent: pulse deficit, motor deficit, sensory deficit, tendon deficit - Back Exam Back exam: Present: normal inspection, full ROM. Absent: tenderness, CVA tenderness (R), CVA tenderness (L) - Neurological Exam Neurological exam: Present: alert, oriented X3 - Skin Skin exam: Present: warm, dry, intact, normal color Course Course Narrative: C4-year-old male presented to the emergency department complaining of shortness of breath. He does have COPD history. He came in via EMS on CPAP. He had been given himself one nebulizer treatment at home. He did not get been given steroids or any other treatments upon his arrival. We will give patient Solu- Medrol as well as triple DuoNeb treatment. Will get chest x-ray and basic labs including CBC, CMP, lactic acid, VBG. Will place patient on our BiPAP. Patient most likely will be admitted for COPD exacerbation. Vital Signs Temperature 97.4 F L 08/16/17 12:13 Pulse Rate 146 08/16/17 12:13 Respiratory Rate 28 08/16/17 12:13 Blood Pressure 111/82 08/16/17 12:13 O2 Sat by Pulse Oximetry 98 08/16/17 12:13 Temperature 97.4 F L 08/16/17 12:13 Pulse Rate 114 08/16/17 13:28 Respiratory Rate 20 08/16/17 13:28 Blood Pressure 105/63 08/16/17 13:28 O2 Sat by Pulse Oximetry 100 08/16/17 13:28 Oxygen Delivery Oxygen Delivery Bipap Shortness of Breath/Dyspnea - [facility] Narrative Medical decision making narrative: 61-year-old male presented to the emergency department complaining of shortness of breath. Patient has history of COPD. He came in on CPAP from EMS. We placed immediately on BiPAP. He felt much better he is currently on FiO2 of 30% . Patient did well on BiPAP we did give Solu-Medrol as well as triple DuoNeb treatment after this he felt much better. Lung volumes are much better and he was able take a deep breath. On first exam patient was very tight in the lungs. Patient is still a smoker. He is currently always on 2-1/2 L at home is not readily intubated for COPD. Patient was hypercapnic which is normal for him. Chest x-ray had no acute findings such as pneumonia. We did not start antibiotics at this time. Patient is going to be admitted to the hospitalist floor for further evaluation and continued BiPAP. Patient is admitted in stable condition. Patient is accepted to Dr. Joseph who agreed to accept the patient to their service. Chest X-Ray 08/16/17 12:14 IMPRESSION: No significant change in left lower lung airspace disease, which again could be compatible with aspiration. D/ / Francis Perez MD / Francis Perez MD Interpreting Provider: Francis Perez MD - Medical Records Medical records reviewed: Yes I reviewed the patient's medical records. - Lab Data Lab results reviewed: Yes I reviewed the patient's lab results. Result diagrams: 08/16/17 12:21 08/16/17 12:21 Lab Results 08/16/17 08/16/17 08/16/17 Range/Units 12:21 12:21 12:21 WBC 11.3 H D (4.3-11.1) K/mcL RBC 4.38 (4.19-5.50) M/mcL Hgb 12.7 L D (12.9-16.9) g/dL Hct 40.5 (37.5-50.1) % MCV 92.5 (83.0-100.0) fL MCH 29.0 (28.0-33.3) pg MCHC 31.4 L (31.6-35.5) g/dL RDW 14.7 H (11.5-14.5) % Plt Count 197 D (140-400) K/mcL MPV 9.5 (9.4-12.4) fL Immature Gran % 2.9 (0-4) % Seg Neutrophils % 55.4 % Lymphocytes % 30.9 % Monocytes % 9.3 % Eosinophils % 1.0 % Basophils % 0.5 % Neutrophils # 6.3 (1.6-8.9) K/mcL Lymphocytes # 3.5 (0.6-4.6) K/mcL Monocytes # 1.1 (0.0-1.3) K/mcL Eosinophils # 0.1 (0.0-0.6) K/mcL Basophils # 0.1 (0.0-0.2) K/mcL Nucleated RBCs/100 WBC 0.2 H (0) /100 WBC VBG pH (7.32-7.42) pH Units VBG pCO2 (41-51) mmHg VBG pO2 (25-50) mmHg VBG HCO3 (21-27) mEq/L Sodium 138 (136-145) mEq/L Potassium 3.9 (3.5-5.1) mEq/L Chloride 91 L (98-107) mEq/L Carbon Dioxide 41 H* (23-29) mEq/L BUN 16 (8-23) mg/dL Creatinine 0.63 L (0.70-1.30) mg/dL Est GFR ( Amer) > 60 (> 60) Est GFR (Non-Af Amer) > 60 (> 60) BUN/Creatinine Ratio 25 (6-26) Glucose 109 H (70-105) mg/dL Calculated Osmolality 288 (280-300) Lactic Acid 2.1 (0.5-2.2) mmol/L Calcium 9.2 (8.6-10.3) mg/dL Troponin I (< 0.04) ng/mL B-Natriuretic Peptide (Less than 100) pg/mL 08/16/17 08/16/17 08/16/17 Range/Units 12:21 12:21 12:38 WBC (4.3-11.1) K/mcL RBC (4.19-5.50) M/mcL Hgb (12.9-16.9) g/dL Hct (37.5-50.1) % MCV (83.0-100.0) fL MCH (28.0-33.3) pg MCHC (31.6-35.5) g/dL RDW (11.5-14.5) % Plt Count (140-400) K/mcL MPV (9.4-12.4) fL Immature Gran % (0-4) % Seg Neutrophils % % Lymphocytes % % Monocytes % % Eosinophils % % Basophils % % Neutrophils # (1.6-8.9) K/mcL Lymphocytes # (0.6-4.6) K/mcL Monocytes # (0.0-1.3) K/mcL Eosinophils # (0.0-0.6) K/mcL Basophils # (0.0-0.2) K/mcL Nucleated RBCs/100 WBC (0) /100 WBC VBG pH 7.37 (7.32-7.42) pH Units VBG pCO2 74 H* (41-51) mmHg VBG pO2 116 H (25-50) mmHg VBG HCO3 43 H (21-27) mEq/L Sodium (136-145) mEq/L Potassium (3.5-5.1) mEq/L Chloride (98-107) mEq/L Carbon Dioxide (23-29) mEq/L BUN (8-23) mg/dL Creatinine (0.70-1.30) mg/dL Est GFR ( Amer) (> 60) Est GFR (Non-Af Amer) (> 60) BUN/Creatinine Ratio (6-26) Glucose (70-105) mg/dL Calculated Osmolality (280-300) Lactic Acid (0.5-2.2) mmol/L Calcium (8.6-10.3) mg/dL Troponin I < 0.03 (< 0.04) ng/mL B-Natriuretic Peptide 42 (Less than 100) pg/mL - Radiology Data Radiology results reviewed: Yes I reviewed the patient's radiology results. - EKG Data EKG attestation: Yes I reviewed and interpreted this EKG. EKG results narrative: EKG done at 1216 review myself and the attending shows sinus tachycardia at a rate of 145. On arrival 139, QRS 93, QTC 328 with a normal axis. There is no acute ST changes no acute T-wave changes no signs of any other ischemia. No signs of any heart history hypertrophy no signs of heart block. No signs of WPW /Brugada syndrome. No acute changes when compared with old EKG done 08/05/17.
[2017-08-16] MEDS ORDERED: Acetaminophen 325 MG TABLET PO PRN (14:12)
[2017-08-16] MEDS ORDERED: Dextrose Gel 15 GM/37.5 ML TUBE PO PRN ×2 (14:15)
[2017-08-16] MEDS ORDERED: D5% in Water 1,000 ML IVC PRN (14:15)
[2017-08-16] MEDS ORDERED: *HR* Dextrose 50 % in Water (Syg) 50 ML SYRINGE IVP PRN (14:15)
[2017-08-16] MEDS ORDERED: Naloxone 0.4 MG/ML INJ IVP PRN (14:15)
[2017-08-16] MEDS ORDERED: Ondansetron 4 MG/2 ML VIAL IVP PRN (14:15)
[2017-08-16] MEDS ORDERED: *HR* OxyCODONE Immed Rel 5 MG TABLET PO PRN (14:15)
--- NOTE | 2017-08-16 14:23 | Internal Med History&Physical ---
Date of Encounter: 08/16/17 Time of Encounter: 14:20 Assessment and Plan (1) Acute exacerbation of chronic obstructive airways disease Current visit: No Status: Acute Acute on chronic hypoxic respiratory failure secondary to acute COPD exacerbation due to possible aspiration pneumonia History chronic CO2 retention Continue Zosyn due to recent hospitalization for which he was treated for healthcare associated pneumonia Solu-Medrol, DuoNeb's, BiPAP, ordered ABG Oxygen therapy Omeprazole for Prophylaxis and subcutaneous heparin for DVT prophylaxis. The patient will be admitted as inpatient, expected to stay more than 2 midnights. Full code. Time spent on this admission 40 minutes (2) Tobacco abuse Current visit: No Status: Chronic Smoking cessation counseling given for 5 minutes, nicotine patch (3) Bipolar disease, chronic Current visit: No Status: Chronic (4) Schizoaffective disorder, bipolar type Current visit: No Status: Chronic (5) IV drug abuse Current visit: No Status: Chronic Remote history of IV drug abuse (6) Acute and chronic respiratory failure with hypoxia Current visit: No Status: Acute Internal Medicine - H&P: HPI Chief complaint: Shortness of breath Admitted From: Emergency Dept History of present illness: Mr. Sosa is a 61 year old male with a past medical history of chronic respiratory failure with COPD oxygen dependent using 2.5 L at home, prior history of IV drug abuse, convicted felon, diabetes type 2 insulin-dependent, bipolar disorder, schizophrenia, tobacco abuse who was discharged from the hospital on 2017 and was treated for healthcare associated pneumonia, prior note mentions chronic note rots and possible MRSA but there is no evidence of MRSA colonization or positive cultures in the past. The patient was hypoxic, saturating in the low 80s, heart rate was 146 blood pressure dropped to 98.81 white blood cell count was 11.3 venous pH was 7.32. CO2 from the basic metabolic panel was 41. Chest x-ray shows no change in chronic left lower lobe opacity, thought to be from aspiration. Patient is in respiratory distress currently on BiPAP. He was transferred by EMS on CPAP. Was given Solu -Medrol emergency room. Says that his lungs feel like burning. Denies any chest pain, no fevers, no abdominal pain. He completed his doses of Levaquin but says that she was given only 3 or 4 days of oral steroids. Past Med Surg Social Fam HX - Past Medical History Medical history: COPD (Oxygen dependent at 2.5 L continuously, chronic respiratory failure), GERD, hepatitis (B), other (Tobacco use, bipolar disorder , depression, schizophrenia, diabetes type 2 insulin-dependent/not taking insulin currently, history of IV drug abuse in the past) Psychiatric history: anxiety, bipolar, depression, schizophrenia - Past Surgical History Surgical History: cholecystectomy - Social History Smoking Status: Current every day smoker Packs per day: Half a pack per day Smokeless Tobacco Status: No Alcohol use: none Drug use: cocaine, IV Drug Use, other Additional social history: Convicted felon - Family History Mother Adopted: No Family Member Ethnicity: Non- Living Status: Hx Family Cardiac Disorders: Yes Hx Family Respiratory Disorders: Yes (dad emphezema) Hx Family Cancer: Yes (lung CA) Hx Family GI Disorders: No Hx Family Endocrine Disorder: Yes (DM) Hx Family Neuromuscular Disorders: No Hx Family Neurologic Disorders: No Hx Family HEENT Disorders: No Hx Family Autoimmune Disorders: No Father Adopted: No Family Member Ethnicity: Non- Living Status: Hx Family Cardiac Disorders: No Hx Family Respiratory Disorders: Yes Hx Family Cancer: Yes Hx Family GI Disorders: No Hx Family Endocrine Disorder: No Hx Family Neuromuscular Disorders: No Hx Family Neurologic Disorders: No Hx Family HEENT Disorders: No Hx Family Autoimmune Disorders: No Brother Family Member Ethnicity: Non- Living Status: Still Living Hx Family Respiratory Disorders: Yes (Emphysema) Sister Family Member Ethnicity: Non- Living Status: Still Living - Additional Family History Additional family history: Mother with diabetes, lung cancer and COPD. Father with lung cancer. Brother with emphysema Internal Medicine - H&P: Meds Albuterol Sulfate [Ventolin Hfa] 2 puff IH Q6H PRN 07/07/17 [History] Bisacodyl [Woman's Laxative] 10 mg PO DAILY PRN 07/07/17 [History] Budesonide/Formoterol 160/4.5 [Symbicort 160/4.5] 2 puff IH BID 07/07/17 [ History] Docusate [Colace] 100 mg PO BID 07/07/17 [History] Naloxone HCl [Narcan] 4 mg NS ONCE PRN 07/07/17 [History] Nicotine Patch [Nicoderm] 21 mg TD DAILY 07/07/17 [History] Nicotine Polacrilex [Nicotine Lozenge] 2 mg BC Q4H PRN 07/07/17 [History] Omeprazole [PriLOSEC] 20 mg PO DAILY 07/07/17 [History] Ondansetron HCl [Zofran] 4 mg PO TID PRN 07/07/17 [History] Polyethylene Glycol 3350 [MiraLAX] 17 gm PO BID PRN 07/07/17 [History] Sildenafil Citrate [Viagra] 50 mg PO AD PRN 07/07/17 [History] Ipratropium/Albuterol Neb [Duoneb] 3 ml IH Q6H PRN #30 inhsol 07/22/17 [Rx] levoFLOXacin [Levaquin] 750 mg PO DAILY #4 tablet 08/12/17 [Rx] predniSONE [PredniSONE] 40 mg PO DAILY #4 tablet 08/12/17 [Rx] 3 Allergy/AdvReac Type Severity Reaction Status Date / Time haloperidol [From Haldol] AdvReac Muscle Pain Verified 08/05/17 05:57 Mcneal AdvReac Weakness Verified 08/05/17 05:57 All Systems PM: A 10-system review of systems was performed and is negative for pertinent findings except as documented above in the HPI. Review of systems: Shortness of breath, other systems out of the 10 review were negative - Constitutional Vitals: Temp Pulse Resp BP Pulse Ox 97.4 F L 114 20 105/63 100 08/16/17 12:13 08/16/17 13:28 08/16/17 13:28 08/16/17 13:28 08/16/17 13:28 General appearance: Present: A&O X 3 (BiPAP) - Head Head exam: Present: atraumatic, normocephalic - Eye Eye exam: Present: PERRL, conjuntiva pink, sclera anicteric Pupils: Present: PERRL - Neck Neck exam general surgery: Present: supple, trachea midline. Absent: lymphadenopathy - Respiratory Respiratory exam: Present: CTAB, wheezes (Diffuse wheezing). Absent: accessory muscle use, rales, rhonchi - Cardiovascular Cardiovascular exam: Present: RRR, +S1, +S2. Absent: diastolic murmur, gallop, rubs, systolic murmur - GI/Abdominal GI/Abdominal exam: Present: normal bowel sounds, soft, no peritoneal signs. Absent: distended, tenderness - Extremities Exam Extremities exam: Present: warm, radial pulses palpable and symmetrical. Absent : calf tenderness, cyanotic, pedal edema - Neurological Exam Neurological exam: Present: CN II-XII intact, oriented X3, no focal deficits. Absent: pronater drift, facial droop, speech deficit - Skin Skin exam: Present: dry, intact Internal Med - H&P Results - Labs CBC & Chem 7: 08/16/17 12:21 08/16/17 12:21
[2017-08-16] MEDS: Ipratropium/Albuterol Neb 3 ML IH SCH ×2 (15:32→22:19)
[2017-08-16] MEDS: MethylPREDNISolone 40 MG/ML VIAL IVP SCH (17:49)
[2017-08-16] MEDS: Nicotine 21 MG PATCH.TD24 TD SCH (17:49)
[2017-08-16] MEDS: *HR* LORazepam 2 MG/ML VIAL IVP PRN (17:50)
[2017-08-16] MEDS: Insulin LISPRO 300 UNITS/3 ML VIAL SQ SCH ×2 (17:50→21:41)
[2017-08-16] MEDS: Piperacillin/Tazobactam 3.375 GM/200 ML BAG IVPB SCH (17:51)
[2017-08-16] MEDS: 0.9 % Sodium Chloride 1,000 ML IVC SCH (17:52)
[2017-08-16] MEDS: *HR* Heparin 5,000 UNIT/ML VIAL SQ SCH (21:42)
[2017-08-17] MEDS: MethylPREDNISolone 40 MG/ML VIAL IVP SCH ×3 (00:07→16:57)
[2017-08-17] MEDS: *HR* LORazepam 2 MG/ML VIAL IVP PRN ×4 (00:07→19:39)
[2017-08-17] MEDS: Piperacillin/Tazobactam 3.375 GM/200 ML BAG IVPB SCH ×3 (00:07→16:57)
[2017-08-17] MEDS: Ipratropium/Albuterol Neb 3 ML IH SCH ×4 (04:22→22:26)
[2017-08-17 04:26] LABS: Hematocrit 32.3 % (37.5-50.1); Mean Corpuscular HGB Conc 32.5 g/dL (31.6-35.5); Mean Corpuscular Hemoglobin 29.7 pg (28.0-33.3); Mean Corpuscular Volume 91.2 fL (83.0-100.0); Platelet Count 147 K/mcL (140-400); Red Blood Count 3.54 M/mcL (4.19-5.50); Red Cell Distribution Width 14.2 % (11.5-14.5)
[2017-08-17 04:28] LABS: Hemoglobin A1C 6.1 %
[2017-08-17 04:31] LABS: Hemoglobin 10.5 g/dL (12.9-16.9)
[2017-08-17 05:28] LABS: BUN/Creatinine Ratio 35 (6-26); Blood Urea Nitrogen 19 mg/dL (8-23); Calcium 8.5 mg/dL (8.6-10.3); Carbon Dioxide 37 mEq/L (23-29); Chloride 96 mEq/L (98-107); Glucose 218 mg/dL (70-105); Osmolality,Calculated 291 (280-300); Potassium 4.1 mEq/L (3.5-5.1); Sodium 136 mEq/L (136-145); eGFR For African Americans > 60 (> 60); eGFR For Non-African Americans > 60 (> 60)
[2017-08-17] MEDS: *HR* Heparin 5,000 UNIT/ML VIAL SQ SCH ×3 (06:09→19:38)
[2017-08-17] MEDS: 0.9 % Sodium Chloride 1,000 ML IVC SCH (09:12)
[2017-08-17] MEDS: Nicotine 21 MG PATCH.TD24 TD SCH (09:13)
[2017-08-17] MEDS: Insulin LISPRO 300 UNITS/3 ML VIAL SQ SCH ×4 (09:14→19:44)
--- NOTE | 2017-08-17 09:39 | Internal Med Progress Note ---
Date of Encounter: 08/17/17 Time of Encounter: 09:38 - Subjective Interval history: History of present illness: 61 year old man with a past medical history of chronic respiratory failure with COPD oxygen dependent using 2.5 L at home He was discharged from the hospital earlier this month after being treated for healthcare associated pneumonia. He was hypoxic, saturating in the low 80s, heart rate was 146 blood pressure dropped to 98.81 white blood cell count was 11.3 venous pH was 7.32. CO2 from the basic metabolic panel was 41. Chest x-ray shows no change in chronic left lower lobe opacity, thought to be from aspiration. Patient is in respiratory distress currently on BiPaP and was given Solu-Medrol emergency room. Denies any chest pain, no fevers, no abdominal pain. He had been on oral levaquin and prednisone. His other comorbid conditions include IV drug abuse, convicted felon, diabetes type 2 insulin-dependent, bipolar disorder, schizophrenia and tobacco abuse. Assessment and Plan (1) Acute exacerbation of chronic obstructive airways disease Acute on chronic hypoxic respiratory failure secondary to acute COPD exacerbation due to possible aspiration pneumonia History chronic CO2 retention Continue Zosyn due to recent hospitalization for which he was treated for healthcare associated pneumonia Also continue Solu- Medrol, DuoNeb's and BiPAP (2) Tobacco abuse Smoking cessation counseling given for 5 minutes, nicotine patch (3) Bipolar disease, chronic Continue home medications (4) Schizoaffective disorder, bipolar type Continue home medications (5) IV drug abuse Remote history of IV drug abuse esfor HIV, Hepatic B&C if not e previously - Constitutional Vitals: Temp Pulse Resp BP Pulse Ox 97.9 F 96 16 116/83 97 08/17/17 07:45 08/17/17 07:45 08/17/17 07:45 08/17/17 07:45 08/17/17 07:45 General appearance: Present: mild distress, A&O X 3 (BiPAP) - Head Head exam: Present: atraumatic, normocephalic - Eye Eye exam: Present: PERRL, conjuntiva pink, sclera anicteric Pupils: Present: PERRL - Neck Neck exam general surgery: Present: supple, trachea midline. Absent: lymphadenopathy - Respiratory Respiratory exam: Present: rales, wheezes. Absent: accessory muscle use, rhonchi - Cardiovascular Cardiovascular exam: Present: +S1, +S2, tachycardia. Absent: diastolic murmur, gallop, rubs, systolic murmur - GI/Abdominal GI/Abdominal exam: Present: normal bowel sounds, soft, no peritoneal signs. Absent: distended, tenderness - Extremities Exam Extremities exam: Present: warm, radial pulses palpable and symmetrical. Absent : calf tenderness, cyanotic, pedal edema - Neurological Exam Neurological exam: Present: CN II-XII intact, oriented X3, no focal deficits. Absent: pronater drift, facial droop, speech deficit - Skin Skin exam: Present: dry, intact Internal Medicine: Result - Labs CBC & Chem 7: 08/17/17 03:50 08/17/17 03:50 Labs: Short CBC 08/17/17 Range/Units 03:50 WBC 6.1 (4.3-11.1) K/mcL Hgb 10.5 L D (12.9-16.9) g/dL Hct 32.3 L (37.5-50.1) % Plt Count 147 (140-400) K/mcL BMP 08/17/17 03:50 Sodium 136 Potassium 4.1 Chloride 96 L Carbon Dioxide 37 H BUN 19 Creatinine 0.54 L Glucose 218 H Calcium 8.5 L Consult Discharge Plan - Plan [facility]errals: [facility] [Primary Care Provider[facility] -
[2017-08-17] MEDS: Budesonide/Formoterol 160/4.5 MDI IH SCH (22:26)
[2017-08-18] MEDS: Piperacillin/Tazobactam 3.375 GM/200 ML BAG IVPB SCH ×2 (00:31→08:01)
[2017-08-18] MEDS: MethylPREDNISolone 40 MG/ML VIAL IVP SCH ×3 (00:31→15:12)
[2017-08-18] MEDS: *HR* Heparin 5,000 UNIT/ML VIAL SQ SCH ×3 (05:17→21:29)
[2017-08-18] MEDS: Ipratropium/Albuterol Neb 3 ML IH SCH ×4 (05:36→23:32)
[2017-08-18 07:18] LABS: Basophils % 0.1 %; Hematocrit 31.4 % (37.5-50.1); Hemoglobin 10.3 g/dL (12.9-16.9); Lymphocytes # 0.4 K/mcL (0.6-4.6); Lymphocytes % 5.1 %; Mean Corpuscular HGB Conc 32.8 g/dL (31.6-35.5); Mean Corpuscular Hemoglobin 29.6 pg (28.0-33.3); Mean Corpuscular Volume 90.2 fL (83.0-100.0); Mean Platelet Volume 9.4 fL (9.4-12.4); Monocytes # 0.3 K/mcL (0.0-1.3); Platelet Count 120 K/mcL (140-400); Red Blood Count 3.48 M/mcL (4.19-5.50); Segmented Neutrophils % 89.8 %
[2017-08-18] MEDS: Nicotine 21 MG PATCH.TD24 TD SCH (07:59)
[2017-08-18] MEDS: Finasteride 5 MG TABLET PO SCH (08:00)
[2017-08-18] MEDS: Insulin LISPRO 300 UNITS/3 ML VIAL SQ SCH ×4 (08:01→21:29)
[2017-08-18] MEDS: *HR* LORazepam 2 MG/ML VIAL IVP PRN ×2 (08:23→15:12)
[2017-08-18 09:40] LABS: BUN/Creatinine Ratio 44 (6-26); Blood Urea Nitrogen 24 mg/dL (8-23); Calcium 8.4 mg/dL (8.6-10.3); Carbon Dioxide 35 mEq/L (23-29); Chloride 96 mEq/L (98-107); Glucose 248 mg/dL (70-105); Osmolality,Calculated 288 (280-300); Potassium 4.1 mEq/L (3.5-5.1); Sodium 133 mEq/L (136-145); eGFR For African Americans > 60 (> 60); eGFR For Non-African Americans > 60 (> 60)
[2017-08-18] MEDS: Budesonide/Formoterol 160/4.5 MDI IH SCH ×2 (09:41→23:32)
--- NOTE | 2017-08-18 17:45 | Internal Med Progress Note ---
Date of Encounter: 08/18/17 Time of Encounter: 17:45 - Subjective Interval history: History of present illness: 61 year old man with a past medical history of chronic respiratory failure with COPD oxygen dependent using 2.5 L at home He was discharged from the hospital earlier this month after being treated for healthcare associated pneumonia. He was hypoxic, saturating in the low 80s, heart rate was 146 blood pressure dropped to 98.81 white blood cell count was 11.3 venous pH was 7.32. CO2 from the basic metabolic panel was 41. Chest x-ray shows no change in chronic left lower lobe opacity, thought to be from aspiration. Patient is in respiratory distress currently on BiPaP and was given [facility] emergency room. Denies any chest pain, no fevers, no abdominal pain. He had been on oral levaquin and prednisone. His other comorbid conditions include IV drug abuse, convicted felon, diabetes type 2 insulin-dependent, bipolar disorder, schizophrenia and tobacco abuse. Interval history: 08/18/2017: Breathing beetter today and less wheezing. Still very sob with minimal exertion. Physical Exam: General appearance: Present: mild distress, A&O X 3 (BiPAP) - Head Head exam: Present: atraumatic, normocephalic - Eye Eye exam: Present: PERRL, conjuntiva pink, sclera anicteric Pupils: Present: PERRL - Neck Neck exam general surgery: Present: supple, trachea midline. Absent: lymphadenopathy - Respiratory Respiratory exam: Present: rales, wheezes. Absent: accessory muscle use, rhonchi - Cardiovascular Cardiovascular exam: Present: +S1, +S2, tachycardia. Absent: diastolic murmur, gallop, rubs, systolic murmur - GI/Abdominal GI/Abdominal exam: Present: normal bowel sounds, soft, no peritoneal signs. Absent: distended, tenderness - Extremities Exam Extremities exam: Present: warm, radial pulses palpable and symmetrical. Absent : calf tenderness, cyanotic, pedal edema - Neurological Exam Neurological exam: Present: CN II-XII intact, oriented X3, no focal deficits. Absent: pronater drift, facial droop, speech deficit - Skin Skin exam: Present: dry, intact Assessment and Plan (1) Acute exacerbation of chronic obstructive airways disease Acute on chronic hypoxic respiratory failure secondary to acute COPD exacerbation due to possible aspiration pneumonia History chronic CO2 retention Continue Zosyn due to recent hospitalization for which he was treated for healthcare associated pneumonia Also continue Solu- Medrol, DuoNeb's and BiPAP (2) Tobacco abuse Smoking cessation counseling given for 5 minutes, nicotine patch (3) Bipolar disease, chronic Continue home medications (4) Schizoaffective disorder, bipolar type Continue home medications (5) IV drug abuse Remote history of IV drug abuse esfor HIV, Hepatic B&C if not e previously - Constitutional Vitals: Temp Pulse Resp BP Pulse Ox 98.4 F 105 16 106/71 92 08/18/17 10:00 08/18/17 10:00 08/18/17 15:44 08/18/17 10:00 08/18/17 15:44 General appearance: Present: mild distress, A&O X 3 (BiPAP) Internal Medicine: Result - Labs CBC & Chem 7: 08/18/17 07:05 08/18/17 07:05 Labs: Short CBC 08/18/17 Range/Units 07:05 WBC 7.8 (4.3-11.1) K/mcL Hgb 10.3 L (12.9-16.9) g/dL Hct 31.4 L (37.5-50.1) % Plt Count 120 L (140-400) K/mcL Neutrophils # 7.0 (1.6-8.9) K/mcL BMP 08/18/17 07:05 Sodium 133 L Potassium 4.1 Chloride 96 L Carbon Dioxide 35 H BUN 24 H Creatinine 0.55 L Glucose 248 H Calcium 8.4 L Consult Discharge Plan - Plan [facility]errals: [facility] [Primary Care Provider] -
[2017-08-19] MEDS: *HR* LORazepam 2 MG/ML VIAL IVP PRN ×4 (00:36→19:53)
[2017-08-19] MEDS: MethylPREDNISolone 40 MG/ML VIAL IVP SCH ×4 (00:37→23:28)
[2017-08-19] MEDS: Ipratropium/Albuterol Neb 3 ML IH SCH ×4 (04:16→21:30)
[2017-08-19 05:02] LABS: Basophils % 0.2 %; Hematocrit 32.9 % (37.5-50.1); Hemoglobin 10.9 g/dL (12.9-16.9); Immature Granulocytes % 1.1 % (0-4); Lymphocytes # 0.3 K/mcL (0.6-4.6); Mean Corpuscular HGB Conc 33.1 g/dL (31.6-35.5); Mean Corpuscular Hemoglobin 29.6 pg (28.0-33.3); Mean Corpuscular Volume 89.4 fL (83.0-100.0); Mean Platelet Volume 10.5 fL (9.4-12.4); Monocytes # 0.4 K/mcL (0.0-1.3); Monocytes % 5.5 %; Neutrophils # 5.8 K/mcL (1.6-8.9); Platelet Count 128 K/mcL (140-400); Red Blood Count 3.68 M/mcL (4.19-5.50); Segmented Neutrophils % 88.2 %
[2017-08-19 05:13] LABS: BUN/Creatinine Ratio 38 (6-26); Blood Urea Nitrogen 21 mg/dL (8-23); Calcium 8.7 mg/dL (8.6-10.3); Carbon Dioxide 37 mEq/L (23-29); Chloride 94 mEq/L (98-107); Glucose 220 mg/dL (70-105); Osmolality,Calculated 288 (280-300); Sodium 134 mEq/L (136-145); eGFR For African Americans > 60 (> 60); eGFR For Non-African Americans > 60 (> 60)
[2017-08-19] MEDS: *HR* Heparin 5,000 UNIT/ML VIAL SQ SCH ×3 (05:45→23:28)
[2017-08-19] MEDS: Insulin LISPRO 300 UNITS/3 ML VIAL SQ SCH ×4 (07:57→23:29)
[2017-08-19] MEDS: Finasteride 5 MG TABLET PO SCH (09:54)
[2017-08-19] MEDS: Nicotine 21 MG PATCH.TD24 TD SCH (09:54)
--- NOTE | 2017-08-19 09:57 | Internal Med Progress Note ---
<Jarad Wolf - Last Filed: 08/19/17 09:54> Date of Encounter: 08/19/17 Time of Encounter: 09:54 - Assessment and plan (1) Acute exacerbation of chronic obstructive airways disease Current Visit: Yes Status: Acute Assessment and plan: acute on chronic hypoxic respiratory failure 2/2 acute COPD exacerbation vs aspiration PNA. Patient has a known hx of chronic CO2 retention. recently treated for HCAP. Due to IVDU, and recent hospitalizations patient is at high risk for HAP. - continue zosyn day 2 - started vancomycin day 1 - continue respiratory support - goal O2 88-92% - morning labs - IS multiple times an hour (2) Tobacco abuse Current Visit: Yes Status: Chronic Assessment and plan: Current 1/2 pack/day smoker. Patient states today that he is ready to quit. Recommended to patient to follow up with PCP as soon as he's discharged. He states he has patches and gum at home, will not need tob replacement products on D/C (3) Bipolar disease, chronic Current Visit: Yes Status: Chronic Assessment and plan: currently stable, continue home meds. (4) IV drug abuse Current Visit: Yes Status: Chronic Assessment and plan: Recent hx. recommended cessation. HIV negative 12/24/16. Hep B positive 12/24/16. - Hep panel ordered (5) DVT prophylaxis Current Visit: Yes Status: Acute Assessment and plan: heparin sq - Subjective Interval history: Mr Sosa is a 61 yo M w/ pmh of COPD 2.5 L O2 dependent, 1/2 pack day currrent smoker, IVDU, T2DM, bipolar disorder, schizophrenia presented to [place] ED for respiratory failure 2/2 COPD exacerbation Today he reports no SOB with respiratory treatment support, but SOB with minimal exertion. He continues to report felling like he's not improving. He denies CP, fevers, chills, diaphoresis, n/v. - Constitutional Vitals: Temp Pulse Resp BP Pulse Ox 98.4 F 95 14 116/79 100 08/19/17 07:31 08/19/17 07:31 08/19/17 07:31 08/19/17 07:31 08/19/17 08:10 General appearance: Present: cooperative, disheveled, mild distress, A&O X 3 ( BiPAP), pleasant, answers questions appropriately - Respiratory Respiratory exam: Present: decreased breath sounds, prolonged expiratory phase, wheezes. Absent: accessory muscle use, chest wall tenderness, respiratory distress - Cardiovascular Cardiovascular exam: Present: RRR. Absent: diastolic murmur, gallop, rubs, systolic murmur - GI/Abdominal GI/Abdominal exam: Present: normal bowel sounds, soft, no peritoneal signs. Absent: distended, tenderness - Extremities Exam Extremities exam: Present: warm, radial pulses palpable and symmetrical. Absent : calf tenderness, cyanotic, pedal edema - Psychiatric Psychiatric exam: Present: normal affect, normal mood Internal Medicine: Result - Labs CBC & Chem 7: 08/19/17 04:13 08/19/17 04:13 Labs: Short CBC 08/19/17 Range/Units 04:13 WBC 6.6 (4.3-11.1) K/mcL Hgb 10.9 L (12.9-16.9) g/dL Hct 32.9 L (37.5-50.1) % Plt Count 128 L (140-400) K/mcL Neutrophils # 5.8 (1.6-8.9) K/mcL BMP 08/19/17 04:13 Sodium 134 L Potassium 4.0 Chloride 94 L Carbon Dioxide 37 H BUN 21 Creatinine 0.56 L Glucose 220 H Calcium 8.7 Consult Discharge Plan - Plan [facility]errals: [facility] [Primary Care Provider] - <Daniel Dowling - Last Filed: 08/19/17 17:45> Date of Encounter: 08/19/17 - Constitutional Vitals: Temp Pulse Resp BP Pulse Ox 97.8 F 94 14 121/81 92 08/19/17 15:58 08/19/17 15:58 08/19/17 15:58 08/19/17 15:58 08/19/17 15:58 Internal Medicine: Result - Labs CBC & Chem 7: 08/19/17 04:13 08/19/17 04:13 Labs: Short CBC 08/19/17 Range/Units 04:13 WBC 6.6 (4.3-11.1) K/mcL Hgb 10.9 L (12.9-16.9) g/dL Hct 32.9 L (37.5-50.1) % Plt Count 128 L (140-400) K/mcL Neutrophils # 5.8 (1.6-8.9) K/mcL BMP 08/19/17 04:13 Sodium 134 L Potassium 4.0 Chloride 94 L Carbon Dioxide 37 H BUN 21 Creatinine 0.56 L Glucose 220 H Calcium 8.7 Liver Function 08/19/17 Range/Units 10:19 Total Bilirubin 0.8 (0.3-1.0) mg/dL Direct Bilirubin 0.2 (0.0-0.2) mg/dL AST 14 (13-39) Units/L ALT 27 (7-52) Units/L Alkaline Phosphatase 121 H (34-104) Units/L Albumin 3.7 (3.5-5.7) g/dL - Attending Attestation I examined this patient and my medical decision-making was reviewed with the Resident Physician. I agree with the documented findings, disposition and treatment plan as described except to the extent set forth below. 61/male Admitted with COPD exacerbation. Presently on antibiotics/steroids/bronchodilator. This patient has terminal COPD. Possible evaluation by pulmonary to see whether he needs any further treatment to optimize his symptoms
[2017-08-19] MEDS: Budesonide/Formoterol 160/4.5 MDI IH SCH ×2 (10:47→21:30)
[2017-08-19 10:49] LABS: Albumin 3.7 g/dL (3.5-5.7); Albumin/Globulin Ratio 2.1 (1.1-2.2); Bilirubin,Direct 0.2 mg/dL (0.0-0.2); Bilirubin,Indirect 0.6 mg/dL (0.0-1.2); Bilirubin,Total 0.8 mg/dL (0.3-1.0); Globulin 1.8 g/dL (2.4-3.5); Total Protein 5.5 g/dL (6.4-8.9)
[2017-08-19] MEDS ORDERED: Vancomycin 1,000 MG in D5% in Water 250 ML IVPB SCH (11:00)
[2017-08-19] MEDS: Vancomycin 1,000 MG in D5% in Water 250 ML IVPB SCH ×2 (11:32→23:28)
--- NOTE | 2017-08-19 17:05 | Electrocardiograph Report ---
[place] [id number] Test Date: 2017-08-16 Pat Name: Pa Sosa Department: [id number] Room: 2NE26 Gender: M [employer] Inspector: : [id number] Requested By: John Appiah Order Number: [id number] Reading MD: Ivan Daniels Measurements Intervals Percival Rate: 145 P: 83 CT: 139 QRS: 63 QRSD: 93 T: 66 QT: 245 QTc: 328 Interpretive Statements SINUS TACHYCARDIA WITH OCCASIONAL SUPRAVENTRICULAR PREMATURE COMPLEXES, POSSIBLE ATRIAL FLUTTER SEPTAL MYOCARDIAL INFARCTION, PROBABLY OLD BASELINE ARTIFACT LIMITS INTERPRETATION Electronically Signed On 08-19-2017 17:04:03 EST by Ivan Daniels
[2017-08-20] MEDS: *HR* LORazepam 2 MG/ML VIAL IVP PRN ×4 (03:48→22:33)
[2017-08-20] MEDS: Ipratropium/Albuterol Neb 3 ML IH SCH ×4 (05:05→21:57)
[2017-08-20 05:34] LABS: Hematocrit 28.7 % (37.5-50.1); Hemoglobin 9.6 g/dL (12.9-16.9); Mean Corpuscular HGB Conc 33.4 g/dL (31.6-35.5); Mean Corpuscular Hemoglobin 29.8 pg (28.0-33.3); Mean Corpuscular Volume 89.1 fL (83.0-100.0); Mean Platelet Volume 10.2 fL (9.4-12.4); Platelet Count 119 K/mcL (140-400); Red Blood Count 3.22 M/mcL (4.19-5.50); Red Cell Distribution Width 13.6 % (11.5-14.5)
[2017-08-20 06:09] LABS: BUN/Creatinine Ratio 32 (6-26); Blood Urea Nitrogen 19 mg/dL (8-23); Calcium 8.3 mg/dL (8.6-10.3); Carbon Dioxide 35 mEq/L (23-29); Chloride 96 mEq/L (98-107); Glucose 312 mg/dL (70-105); Osmolality,Calculated 292 (280-300); Potassium 3.7 mEq/L (3.5-5.1); Sodium 134 mEq/L (136-145); eGFR For African Americans > 60 (> 60); eGFR For Non-African Americans > 60 (> 60)
[2017-08-20] MEDS: *HR* Heparin 5,000 UNIT/ML VIAL SQ SCH ×3 (06:52→22:33)
[2017-08-20] MEDS: Finasteride 5 MG TABLET PO SCH (09:58)
[2017-08-20] MEDS: MethylPREDNISolone 40 MG/ML VIAL IVP SCH ×3 (10:00→23:07)
[2017-08-20] MEDS: Nicotine 21 MG PATCH.TD24 TD SCH (10:01)
[2017-08-20] MEDS: Insulin LISPRO 300 UNITS/3 ML VIAL SQ SCH ×4 (10:02→22:35)
[2017-08-20] MEDS: Budesonide/Formoterol 160/4.5 MDI IH SCH ×2 (10:48→21:57)
[2017-08-20] MEDS: Vancomycin 1,000 MG in D5% in Water 250 ML IVPB SCH ×2 (12:35→22:39)
--- NOTE | 2017-08-20 17:57 | Internal Med Progress Note ---
Date of Encounter: 08/20/17 Time of Encounter: 17:55 - Assessment and plan (1) Acute exacerbation of chronic obstructive airways disease Current Visit: Yes Status: Acute Assessment and plan: acute on chronic hypoxic respiratory failure 2/2 acute COPD exacerbation vs aspiration PNA. Patient has a known hx of chronic CO2 retention. recently treated for HCAP. Due to IVDU, and recent hospitalizations patient is at high risk for HAP. - continue zosyn day 2 - started vancomycin day 1 - continue respiratory support - goal O2 88-92% - morning labs - IS multiple times an hour 08/20/2017 Patient is known to have a chronic hypoxic failure with occasional hypercapnic episode. He had a multiple admissions in last 4 months. Patient has terminal COPD. Noted that compared to yesterday his polyphonic rhonchi/wheezes getting better. Patient is still using accessory muscles of respiration. Plan: Will continue present treatment for now. We will get opinion from pulmonology tomorrow. (2) Bipolar disease, chronic Current Visit: Yes Status: Chronic Assessment and plan: currently stable, continue home meds. (3) IV drug abuse Current Visit: Yes Status: Chronic Assessment and plan: Recent hx. recommended cessation. HIV negative 12/24/16. Hep B positive 12/24/16. - Hep panel ordered (4) Tobacco abuse Current Visit: Yes Status: Chronic Assessment and plan: Current 1/2 pack/day smoker. Patient states today that he is ready to quit. Recommended to patient to follow up with PCP as soon as he's discharged. He states he has patches and gum at home, will not need tob replacement products on D/C (5) DVT prophylaxis Current Visit: Yes Status: Acute Assessment and plan: heparin sq Medical decision making: This patient has a severe risk of worsening in spite of being on appropriate medication due to the underlying chronic comorbid conditions. - Subjective Interval history: Patient seen and examined. Chart reviewed. Patient is comfortably lying in the bed. Patient is using accessory muscles of respiration. Patient's oxygen demand is a little bit more than his home oxygen demand. - Constitutional Vitals: Temp Pulse Resp BP Pulse Ox 98.6 F 110 18 119/81 97 08/20/17 16:00 08/20/17 16:00 08/20/17 16:00 08/20/17 16:00 08/20/17 16:00 General appearance: Present: cooperative, disheveled, mild distress, A&O X 3 ( BiPAP), pleasant, answers questions appropriately - Head Head exam: Present: atraumatic, normocephalic - Eye Eye exam: Present: PERRL, conjuntiva pink, sclera anicteric Pupils: Present: PERRL - Neck Neck exam general surgery: Present: supple, trachea midline. Absent: lymphadenopathy - Respiratory Respiratory exam: Present: CTAB. Absent: accessory muscle use, rales, rhonchi, wheezes - Cardiovascular Cardiovascular exam: Present: RRR, +S1, +S2. Absent: diastolic murmur, gallop, rubs, systolic murmur - GI/Abdominal GI/Abdominal exam: Present: normal bowel sounds, soft, no peritoneal signs. Absent: distended, tenderness - Extremities Exam Extremities exam: Present: warm, radial pulses palpable and symmetrical. Absent : calf tenderness, cyanotic, pedal edema - Neurological Exam Neurological exam: Present: CN II-XII intact, oriented X3, no focal deficits. Absent: pronater drift, facial droop, speech deficit - Skin Skin exam: Present: dry, intact Internal Medicine: Result - Labs CBC & Chem 7: 08/20/17 04:35 08/20/17 04:35 Labs: Short CBC 08/20/17 Range/Units 04:35 WBC 5.6 (4.3-11.1) K/mcL Hgb 9.6 L (12.9-16.9) g/dL Hct 28.7 L (37.5-50.1) % Plt Count 119 L (140-400) K/mcL [facility] 08/20/17 04:35 Sodium 134 L Potassium 3.7 Chloride 96 L Carbon Dioxide 35 H BUN 19 Creatinine 0.59 L Glucose 312 H Calcium 8.3 L Consult Discharge Plan - Plan [facility]errals: [facility] [Primary Care Provider] -
[2017-08-21] MEDS: Ipratropium/Albuterol Neb 3 ML IH SCH ×4 (04:35→22:48)
[2017-08-21 04:47] LABS: Basophils % 0.2 %; Hematocrit 28.4 % (37.5-50.1); Hemoglobin 9.5 g/dL (12.9-16.9); Immature Granulocytes % 1.8 % (0-4); Lymphocytes # 0.3 K/mcL (0.6-4.6); Lymphocytes % 4.9 %; Mean Corpuscular HGB Conc 33.5 g/dL (31.6-35.5); Mean Corpuscular Hemoglobin 29.5 pg (28.0-33.3); Mean Corpuscular Volume 88.2 fL (83.0-100.0); Mean Platelet Volume 10.6 fL (9.4-12.4); Monocytes # 0.3 K/mcL (0.0-1.3); Monocytes % 4.6 %; Neutrophils # 4.9 K/mcL (1.6-8.9); Platelet Count 116 K/mcL (140-400); Red Blood Count 3.22 M/mcL (4.19-5.50); Red Cell Distribution Width 13.3 % (11.5-14.5); Segmented Neutrophils % 88.5 %
[2017-08-21 05:10] LABS: Alanine Aminotransferase 24 Units/L (7-52); Albumin/Globulin Ratio 1.9 (1.1-2.2); Alkaline Phosphatase 123 Units/L (34-104); Aspartate Amino Transferase 9 Units/L (13-39); BUN/Creatinine Ratio 27 (6-26); Bilirubin,Total 0.7 mg/dL (0.3-1.0); Blood Urea Nitrogen 15 mg/dL (8-23); Calcium 8.1 mg/dL (8.6-10.3); Carbon Dioxide 37 mEq/L (23-29); Chloride 93 mEq/L (98-107); Globulin 1.6 g/dL (2.4-3.5); Glucose 360 mg/dL (70-105); Osmolality,Calculated 291 (280-300); Potassium 3.7 mEq/L (3.5-5.1); Sodium 133 mEq/L (136-145); Total Protein 4.6 g/dL (6.4-8.9); eGFR For African Americans > 60 (> 60); eGFR For Non-African Americans > 60 (> 60)
[2017-08-21] MEDS: *HR* Heparin 5,000 UNIT/ML VIAL SQ SCH ×3 (06:47→21:50)
[2017-08-21] MEDS: *HR* LORazepam 2 MG/ML VIAL IVP PRN ×3 (06:47→20:04)
[2017-08-21] MEDS: Nicotine 21 MG PATCH.TD24 TD SCH (08:56)
[2017-08-21] MEDS: MethylPREDNISolone 40 MG/ML VIAL IVP SCH ×2 (08:56→17:09)
[2017-08-21] MEDS: Finasteride 5 MG TABLET PO SCH (08:56)
[2017-08-21] MEDS: Insulin LISPRO 300 UNITS/3 ML VIAL SQ SCH ×4 (08:57→21:54)
[2017-08-21] MEDS: Budesonide/Formoterol 160/4.5 MDI IH SCH ×2 (10:50→22:48)
[2017-08-21] MEDS ORDERED: Vancomycin 1,500 MG in D5% in Water 250 ML IVPB SCH (11:00)
--- NOTE | 2017-08-21 12:45 | Pulmonology Consult Note ---
Date of Encounter: 08/21/17 Time of Encounter: 12:40 Assessment and Plan (1) Acute exacerbation of chronic obstructive airways disease Current Visit: Yes Status: Acute Patient has recurrent COPD exacerbation doubt all these are true COPD exacerbations he has lot of anxiety issues any increase in shortness of breadth worsens the anxiety , also he has diastolic dysfunction any of the acute diastolic heart failure episodes would have been mis classified as COPD . Will need 12 days steroid taper send him him on symbiocrt BID, Duoneb nebulizer , probably MWF Azithromycin overall poor prognosis with recurrent COPD exacerbation will need outpatient follow up in 6-8 weeks (2) Tobacco abuse Current Visit: Yes Status: Chronic Counseled about the progression of his disease if he continues to smoke , patient is not contemplating in stopping smoking . (3) Anxiety Current Visit: No Status: Chronic Patient should have good psychiatry follow up for good outpatient regimen (4) Acute on chronic respiratory failure with hypoxemia Current Visit: No Status: Acute Secondary to COPD exacerbation to Keep sats above 88% to continue diuresis as tolerated History of Present Illness Consult date: 08/21/17 Requesting physician: Daniel Dowling Reason for consult: COPD Chief complaint: Shortness of Breadth History of present illness: 61 year old male with past medical history significant for Severe COPD O2 dependent comes with recurrent COPD exacerbations most of the exacerbations looks like anxiety related , patient had a ECHO last year showed HFPEF with diastolic dysfunction and dilated LA , patient says his cough and sputum production is lot better , denies any hemoptysis , denies any chest pain or tightness pulmonary was consulted for evaluation of recurrent COPD exacerbations. Past Med Surg Social Fam HX - Past Medical History Medical history: COPD, hepatitis, other Psychiatric history: anxiety, bipolar, depression, schizophrenia - Past Surgical History Surgical History: cholecystectomy - Social History Smoking Status: Current every day smoker Packs per day: Half a pack per day Smokeless Tobacco Status: No Alcohol use: none Drug use: other - Family History Mother Adopted: No Family Member Ethnicity: Non- Living Status: Hx Family Cardiac Disorders: Yes Hx Family Respiratory Disorders: Yes (dad emphezema) Hx Family Cancer: Yes (lung CA) Hx Family GI Disorders: No Hx Family Endocrine Disorder: Yes (DM) Hx Family Neuromuscular Disorders: No Hx Family Neurologic Disorders: No Hx Family HEENT Disorders: No Hx Family Autoimmune Disorders: No Father Adopted: No Family Member Ethnicity: Non- Living Status: Hx Family Cardiac Disorders: No Hx Family Respiratory Disorders: Yes Hx Family Cancer: Yes Hx Family GI Disorders: No Hx Family Endocrine Disorder: No Hx Family Neuromuscular Disorders: No Hx Family Neurologic Disorders: No Hx Family HEENT Disorders: No Hx Family Autoimmune Disorders: No Brother Family Member Ethnicity: Non- Living Status: Still Living Hx Family Respiratory Disorders: Yes (Emphysema) Sister Family Member Ethnicity: Non- Living Status: Still Living Medications and Allergies Albuterol Sulfate [Ventolin Hfa] 2 puff IH Q6H PRN 07/07/17 [History] Bisacodyl [Woman's Laxative] 10 mg PO DAILY PRN 07/07/17 [History] Budesonide/Formoterol 160/4.5 [Symbicort 160/4.5] 2 puff IH BID 07/07/17 [ History] Docusate [Colace] 100 mg PO BID 07/07/17 [History] Naloxone HCl [Narcan] 4 mg NS ONCE PRN 07/07/17 [History] Nicotine Patch [Nicoderm] 21 mg TD DAILY 07/07/17 [History] Nicotine Polacrilex [Nicotine Lozenge] 2 mg BC Q4H PRN 07/07/17 [History] Omeprazole [PriLOSEC] 20 mg PO DAILY 07/07/17 [History] Ondansetron HCl [Zofran] 4 mg PO TID PRN 07/07/17 [History] Polyethylene Glycol 3350 [MiraLAX] 17 gm PO BID PRN 07/07/17 [History] Sildenafil Citrate [Viagra] 50 mg PO AD PRN 07/07/17 [History] Ipratropium/Albuterol Neb [Duoneb] 3 ml IH Q6H PRN #30 inhsol 07/22/17 [Rx] 3 Allergy/AdvReac Type Severity Reaction Status Date / Time haloperidol [From Haldol] AdvReac Muscle Pain Verified 08/05/17 05:57 [place] AdvReac Weakness Verified 08/05/17 05:57 All Systems: All other review of systems found to be negative Physical Examination Vital Signs: Vital Signs, Last 4 Hours Resp Pulse Ox 08/21/17 10:50 20 95 Auscultation: bilateral: wheezes Results - Laboratory Findings CBC and BMP: 08/21/17 03:38 08/21/17 03:38 Abnormal lab findings: Abnormal lab results RBC 3.22 M/mcL (4.19-5.50) L 08/21/17 03:38 Hgb 9.5 g/dL (12.9-16.9) L 08/21/17 03:38 Hct 28.4 % (37.5-50.1) L 08/21/17 03:38 Plt Count 116 K/mcL (140-400) L 08/21/17 03:38 Lymphocytes # 0.3 K/mcL (0.6-4.6) L 08/21/17 03:38 Nucleated RBCs/100 WBC 0.2 /100 WBC (0) H 08/16/17 12:21 VBG pCO2 74 mmHg (41-51) H* 08/16/17 12:38 VBG pO2 116 mmHg (25-50) H 08/16/17 12:38 VBG HCO3 43 mEq/L (21-27) H 08/16/17 12:38 Sodium 133 mEq/L (136-145) L 08/21/17 03:38 Chloride 93 mEq/L (98-107) L 08/21/17 03:38 Carbon Dioxide 37 mEq/L (23-29) H 08/21/17 03:38 Creatinine 0.56 mg/dL (0.70-1.30) L 08/21/17 03:38 BUN/Creatinine Ratio 27 (6-26) H 08/21/17 03:38 Glucose 360 mg/dL (70-105) H 08/21/17 03:38 POC Glucose 397 (58-89) H 08/20/17 19:57 Hemoglobin A1c 6.1 % (-5.6) H 08/17/17 03:50 Calcium 8.1 mg/dL (8.6-10.3) L 08/21/17 03:38 AST 9 Units/L (13-39) L 08/21/17 03:38 Alkaline Phosphatase 123 Units/L (34-104) H 08/21/17 03:38 Serum Total Protein 4.6 g/dL (6.4-8.9) L 08/21/17 03:38 Albumin 3.0 g/dL (3.5-5.7) L 08/21/17 03:38 Globulin 1.6 g/dL (2.4-3.5) L 08/21/17 03:38 Vancomycin Trough 7.3 mcg/mL (10-20) L 08/20/17 22:02 - Clinical Findings Intake & Output: Intake & Output 08/20/17 08/21/17 08/21/17 23:59 07:59 15:59 Intake Total 1300 / 1300 1100 / 1100 Balance 1300 / 1300 1100 / 1100 Weight 72.9 kg Consult Discharge Plan - Plan [facility]: [facility] [Primary Care Provider] -
[2017-08-21] MEDS: Vancomycin 1,500 MG in D5% in Water 250 ML IVPB SCH (13:38)
--- NOTE | 2017-08-21 15:53 | Internal Med Progress Note ---
Date of Encounter: 08/21/17 Time of Encounter: 15:51 - Assessment and plan (1) Acute exacerbation of chronic obstructive airways disease Current Visit: Yes Status: Acute Assessment and plan: acute on chronic hypoxic respiratory failure 2/2 acute COPD exacerbation vs aspiration PNA. Patient has a known hx of chronic CO2 retention. recently treated for HCAP. Due to IVDU, and recent hospitalizations patient is at high risk for HAP. - continue zosyn day 2 - started vancomycin day 1 - continue respiratory support - goal O2 88-92% - morning labs - IS multiple times an hour 08/20/2017 Patient is known to have a chronic hypoxic failure with occasional hypercapnic episode. He had a multiple admissions in last 4 months. Patient has terminal COPD. Noted that compared to yesterday his polyphonic rhonchi/wheezes getting better. Patient is still using accessory muscles of respiration. Plan: Will continue present treatment for now. We will get opinion from pulmonology tomorrow. 08/21/2017 Patient is seen by pulmonology. Agree with the management which is ongoing now. Pulmonology prefers to have patient has outpatient follow-up. We will follow the pulmonary recommendations Home in next 1-2 days. (2) Bipolar disease, chronic Current Visit: Yes Status: Chronic Assessment and plan: currently stable, continue home meds. (3) IV drug abuse Current Visit: Yes Status: Chronic Assessment and plan: Recent hx. recommended cessation. HIV negative 12/24/16. Hep B positive 12/24/16. - Hep panel ordered (4) Tobacco abuse Current Visit: Yes Status: Chronic Assessment and plan: Current 1/2 pack/day smoker. Patient states today that he is ready to quit. Recommended to patient to follow up with PCP as soon as he's discharged. He states he has patches and gum at home, will not need tob replacement products on D/C (5) DVT prophylaxis Current Visit: Yes Status: Acute Assessment and plan: heparin sq Medical decision making: This patient has a severe risk of worsening in spite of being on appropriate medication due to the underlying chronic comorbid conditions. - Subjective Interval history: Patient seen and examined. Chart reviewed. Patient is comfortably lying in the bed. Patient is using accessory muscles of respiration. Patient's oxygen demand is a little bit more than his home oxygen demand. 08/21/2017 Patient seen and examined. Chart reviewed. Patient is comfortably lying in bed. Patient claims that he feels little better as compared to yesterday. Patient is not using any accessory muscles of respiration. - Constitutional Vitals: Temp Pulse Resp BP Pulse Ox 98.4 F 104 15 142/86 98 08/21/17 14:58 08/21/17 14:58 08/21/17 14:58 08/21/17 14:58 08/21/17 14:58 General appearance: Present: cooperative, disheveled, mild distress, A&O X 3 ( BiPAP), pleasant, answers questions appropriately - Head Head exam: Present: atraumatic, normocephalic - Eye Eye exam: Present: PERRL, conjuntiva pink, sclera anicteric Pupils: Present: PERRL - Neck Neck exam general surgery: Present: supple, trachea midline. Absent: lymphadenopathy - Respiratory Respiratory exam: Present: CTAB. Absent: accessory muscle use, rales, rhonchi, wheezes - Cardiovascular Cardiovascular exam: Present: RRR, +S1, +S2. Absent: diastolic murmur, gallop, rubs, systolic murmur - GI/Abdominal GI/Abdominal exam: Present: normal bowel sounds, soft, no peritoneal signs. Absent: distended, tenderness - Extremities Exam Extremities exam: Present: warm, radial pulses palpable and symmetrical. Absent : calf tenderness, cyanotic, pedal edema - Neurological Exam Neurological exam: Present: CN II-XII intact, oriented X3, no focal deficits. Absent: pronater drift, facial droop, speech deficit - Skin Skin exam: Present: dry, intact Internal Medicine: Result - Labs CBC & Chem 7: 08/21/17 03:38 08/21/17 03:38 Labs: Short CBC 08/21/17 Range/Units 03:38 WBC 5.5 (4.3-11.1) K/mcL Hgb 9.5 L (12.9-16.9) g/dL Hct 28.4 L (37.5-50.1) % Plt Count 116 L (140-400) K/mcL Neutrophils # 4.9 (1.6-8.9) K/mcL BMP 08/21/17 03:38 Sodium 133 L Potassium 3.7 Chloride 93 L Carbon Dioxide 37 H BUN 15 Creatinine 0.56 L Glucose 360 H Calcium 8.1 L Liver Function 08/21/17 Range/Units 03:38 Total Bilirubin 0.7 (0.3-1.0) mg/dL AST 9 L (13-39) Units/L ALT 24 (7-52) Units/L Alkaline Phosphatase 123 H (34-104) Units/L Albumin 3.0 L (3.5-5.7) g/dL Consult Discharge Plan - Plan [facility]errals: [facility] [Primary Care Provider] -
[2017-08-22] MEDS: MethylPREDNISolone 40 MG/ML VIAL IVP SCH ×2 (01:30→09:56)
[2017-08-22] MEDS: Vancomycin 1,500 MG in D5% in Water 250 ML IVPB SCH ×2 (01:35→13:23)
[2017-08-22] MEDS: Ipratropium/Albuterol Neb 3 ML IH SCH ×2 (04:11→11:07)
[2017-08-22] MEDS: *HR* LORazepam 2 MG/ML VIAL IVP PRN ×2 (04:35→10:42)
[2017-08-22] MEDS: *HR* Heparin 5,000 UNIT/ML VIAL SQ SCH (06:16)
[2017-08-22] MEDS: Insulin LISPRO 300 UNITS/3 ML VIAL SQ SCH ×2 (07:59→11:57)
[2017-08-22 09:53] LABS: Basophils % 0.3 %; Hematocrit 30.8 % (37.5-50.1); Hemoglobin 10.6 g/dL (12.9-16.9); Immature Granulocytes % 3.2 % (0-4); Lymphocytes # 0.3 K/mcL (0.6-4.6); Lymphocytes % 3.9 %; Mean Corpuscular HGB Conc 34.4 g/dL (31.6-35.5); Mean Corpuscular Hemoglobin 30.2 pg (28.0-33.3); Mean Corpuscular Volume 87.7 fL (83.0-100.0); Monocytes # 0.3 K/mcL (0.0-1.3); Monocytes % 4.6 %; Neutrophils # 6.5 K/mcL (1.6-8.9); Nucleated Red Blood Cells 0.3 /100 WBC (0); Platelet Count 147 K/mcL (140-400); Red Blood Count 3.51 M/mcL (4.19-5.50); Red Cell Distribution Width 13.8 % (11.5-14.5)
[2017-08-22] MEDS: Nicotine 21 MG PATCH.TD24 TD SCH (09:57)
[2017-08-22] MEDS: Finasteride 5 MG TABLET PO SCH (09:57)
[2017-08-22 10:49] VITALS: BP 131/91
[2017-08-22] MEDS: Budesonide/Formoterol 160/4.5 MDI IH SCH (11:07)
--- NOTE | 2017-08-22 11:15 | Discharge Summary ---
Date of Encounter: 08/22/17 Time of Encounter: 11:09 - Discharge Diagnosis (1) Acute exacerbation of chronic obstructive airways disease Priority: Primary Status: Acute (2) Bipolar disease, chronic Priority: Secondary Status: Chronic (3) IV drug abuse Priority: Secondary Status: Chronic (4) Tobacco abuse Priority: Secondary Status: Chronic (5) DVT prophylaxis Priority: Secondary Status: Acute - Discharge Medications Home Medications: Albuterol Sulfate [Ventolin Hfa] 2 puff IH Q6H PRN 07/07/17 [History] Bisacodyl [Woman's Laxative] 10 mg PO DAILY PRN 07/07/17 [History] Budesonide/Formoterol 160/4.5 [Symbicort 160/4.5] 2 puff IH BID 07/07/17 [ History] Docusate [Colace] 100 mg PO BID 07/07/17 [History] Naloxone HCl [Narcan] 4 mg NS ONCE PRN 07/07/17 [History] Nicotine Patch [Nicoderm] 21 mg TD DAILY 07/07/17 [History] Nicotine Polacrilex [Nicotine Lozenge] 2 mg BC Q4H PRN 07/07/17 [History] Omeprazole [PriLOSEC] 20 mg PO DAILY 07/07/17 [History] Ondansetron HCl [Zofran] 4 mg PO TID PRN 07/07/17 [History] Polyethylene Glycol 3350 [MiraLAX] 17 gm PO BID PRN 07/07/17 [History] Sildenafil Citrate [Viagra] 50 mg PO AD PRN 07/07/17 [History] Ipratropium/Albuterol Neb [Duoneb] 3 ml IH Q6H PRN #30 inhsol 07/22/17 [Rx] Amoxicillin/Clavulanate [Augmentin] 500 mg PO BIDWM #10 tablet 08/22/17 [Rx] LORazepam [Ativan] 1 mg PO HS 3 Days #4 tablet 08/22/17 [Rx] predniSONE [PredniSONE] 40 mg PO DAILY #5 tablet 08/22/17 [Rx] Allergies/Adverse Reactions: 3 Allergy/AdvReac Type Severity Reaction Status Date / Time haloperidol [From Haldol] AdvReac Muscle Pain Verified 08/05/17 05:57 [place] AdvReac Weakness Verified 08/05/17 05:57 Date of admission: 08/16/17 14:06 [facility] care physician: [facility] Consults: 08/16/17 14:16 Consult to Nurse Navigator [CONS] Routine Comment: 08/16/17 14:17 Consult to Metal Casket Assembler [CONS] Routine Reason for SW Consult: placement Discharging clinician: Daniel Dowling - Patient Status Disposition: Home, Self-Care Condition: Fair Functional capacity at discharge: uses cane/walker Overall status at discharge: patient is progressing back to baseline - Discharge Instructions Follow Up With: [facility] [[facility] Care Provider[facility] - Shanelle Jasso MD [Partnered Physician] - - Diet and Activity Activity: increase activity as tolerated Diet: low fat, low cholesterol, low salt diet Interval History: Mr. Sosa is a 61 year old male with a past medical history of chronic respiratory failure with COPD oxygen dependent using 2.5 L at home, prior history of IV drug abuse, convicted felon, diabetes type 2 insulin-dependent, bipolar disorder, schizophrenia, tobacco abuse who was discharged from the hospital on 2017 and was treated for healthcare associated pneumonia, prior note mentions chronic note rots and possible MRSA but there is no evidence of MRSA colonization or positive cultures in the past. The patient was hypoxic, saturating in the low 80s, heart rate was 146 blood pressure dropped to 98.81 white blood cell count was 11.3 venous pH was 7.32. CO2 from the basic metabolic panel was 41. Chest x-ray shows no change in chronic left lower lobe opacity, thought to be from aspiration. Patient is in respiratory distress currently on BiPAP. He was transferred by EMS on CPAP. Was given Solu -Medrol emergency room. Says that his lungs feel like burning. Denies any chest pain, no fevers, no abdominal pain. He completed his doses of Levaquin but says that she was given only 3 or 4 days of oral steroids. Hospital course: Mr. Sosa is a 61 year old male was hospitalized. He was started on IV antibiotics along with intravenous Solu-Medrol and inhaled bronchodilators. Patient started feeling a little better with this treatment. This is a more than 10th admission in less than 2 months with the same diagnosis of COPD exacerbation. I called pulmonology for a review. Pulmonology recommended to follow-up as an outpatient after the initial episode is resolved so that further workup can be done. Patient is keen to go home today. Plan: Patient will go home on antibiotics/steroids/bronchodilator. Patient is ran out of his Ativan and I will prescribe only 5 Ativan. Recommended patient to go to primary care for further evaluation. I will make an appointment with pulmonology so that patient can have a follow- up and plan discussion at length. All questions answered the time of discharge. - Time Spent with Patient Total time spent providing and/or coordinating discharge services: - Constitutional Vitals: Temp Pulse Resp BP Pulse Ox 98.1 F 107 20 131/91 97 08/22/17 10:45 08/22/17 10:45 08/22/17 10:45 08/22/17 10:45 08/22/17 10:45 General appearance: Present: cooperative, disheveled, mild distress, A&O X 3 ( BiPAP), pleasant, answers questions appropriately - Head Head exam: Present: atraumatic, normocephalic - Eye Eye exam: Present: PERRL, conjuntiva pink, sclera anicteric Pupils: Present: PERRL - Neck Neck exam general surgery: Present: supple, trachea midline. Absent: lymphadenopathy - Respiratory Respiratory exam: Present: CTAB. Absent: accessory muscle use, rales, rhonchi, wheezes - Cardiovascular Cardiovascular exam: Present: RRR, +S1, +S2. Absent: diastolic murmur, gallop, rubs, systolic murmur - GI/Abdominal GI/Abdominal exam: Present: normal bowel sounds, soft, no peritoneal signs. Absent: distended, tenderness - Extremities Exam Extremities exam: Present: warm, radial pulses palpable and symmetrical. Absent : calf tenderness, cyanotic, pedal edema - Neurological Exam Neurological exam: Present: CN II-XII intact, oriented X3, no focal deficits. Absent: pronater drift, facial droop, speech deficit - Skin Skin exam: Present: dry, intact
--- NOTE | 2017-08-22 11:39 | Physician Discharge Referral ---
Home Health/Hosp Referral Info Transfer to: Home Health - Diagnosis (1) Acute exacerbation of chronic obstructive airways disease Priority: Primary Status: Acute (2) Bipolar disease, chronic Priority: Secondary Status: Chronic (3) IV drug abuse Priority: Secondary Status: Chronic (4) Tobacco abuse Priority: Secondary Status: Chronic (5) DVT prophylaxis Priority: Secondary Status: Acute - Respiratory Orders Smoking Cessation: Smoking cessation has been advised. For more information, call the [place] Tobacco Quit Line at 3-493-QWTE-NOW. - Services Needed Following services are medically necessary services: Nursing, Home Health Aide - Transfer Medications Prescriptions: Amoxicillin/Clavulanate [Augmentin] 500 mg PO BIDWM #10 tablet LORazepam [Ativan] 1 mg PO HS 3 Days #4 tablet predniSONE [PredniSONE] 40 mg PO DAILY #5 tablet Home Medications: Albuterol Sulfate [Ventolin Hfa] 2 puff IH Q6H PRN 07/07/17 [History] Bisacodyl [Woman's Laxative] 10 mg PO DAILY PRN 07/07/17 [History] Budesonide/Formoterol 160/4.5 [Symbicort 160/4.5] 2 puff IH BID 07/07/17 [ History] Docusate [Colace] 100 mg PO BID 07/07/17 [History] Naloxone HCl [Narcan] 4 mg NS ONCE PRN 07/07/17 [History] Nicotine Patch [Nicoderm] 21 mg TD DAILY 07/07/17 [History] Nicotine Polacrilex [Nicotine Lozenge] 2 mg BC Q4H PRN 07/07/17 [History] Omeprazole [PriLOSEC] 20 mg PO DAILY 07/07/17 [History] Ondansetron HCl [Zofran] 4 mg PO TID PRN 07/07/17 [History] Polyethylene Glycol 3350 [MiraLAX] 17 gm PO BID PRN 07/07/17 [History] Sildenafil Citrate [Viagra] 50 mg PO AD PRN 07/07/17 [History] Ipratropium/Albuterol Neb [Duoneb] 3 ml IH Q6H PRN #30 inhsol 07/22/17 [Rx] Amoxicillin/Clavulanate [Augmentin] 500 mg PO BIDWM #10 tablet 08/22/17 [Rx] LORazepam [Ativan] 1 mg PO HS 3 Days #4 tablet 08/22/17 [Rx] predniSONE [PredniSONE] 40 mg PO DAILY #5 tablet 08/22/17 [Rx] Allergies/Adverse Reactions: 3 Allergy/AdvReac Type Severity Reaction Status Date / Time haloperidol [From Haldol] AdvReac Muscle Pain Verified 08/05/17 05:57 [place] AdvReac Weakness Verified 08/05/17 05:57 Certification: Further, I certify that my clinical findings support that this patient is homebound (i.e. absences from home require considerable and taxing effort and are for medical reasons or mandaeism services or infrequently or short duration when for other reasons) because: Homebound Reason: Patient requires assistance of a person or device to safely leave home Attestation: My signature below is to certify that this patient is under my care and that I, or nurse practitioner, or a physician's portfolio assistant working with me, has a face-to -face encounter with this patient.
[2017-08-22 11:43] LABS: Alanine Aminotransferase 28 Units/L (7-52); Albumin 3.6 g/dL (3.5-5.7); Albumin/Globulin Ratio 1.9 (1.1-2.2); Alkaline Phosphatase 133 Units/L (34-104); Aspartate Amino Transferase 12 Units/L (13-39); BUN/Creatinine Ratio 40 (6-26); Bilirubin,Total 0.8 mg/dL (0.3-1.0); Blood Urea Nitrogen 23 mg/dL (8-23); Calcium 8.8 mg/dL (8.6-10.3); Carbon Dioxide 38 mEq/L (23-29); Chloride 93 mEq/L (98-107); Globulin 1.9 g/dL (2.4-3.5); Glucose 258 mg/dL (70-105); Osmolality,Calculated 293 (280-300); Potassium 3.8 mEq/L (3.5-5.1); Sodium 135 mEq/L (136-145); Total Protein 5.5 g/dL (6.4-8.9); eGFR For African Americans > 60 (> 60); eGFR For Non-African Americans > 60 (> 60)
[2017-08-22] MEDS ORDERED: Aminoglycoside Consult 1 EACH MC ONE (15:44)
== END 2017-08-22 15:45 | disposition home or self-care (01) | DRG 190 ==
LOC: EMEROO 12:11 → 2NENU 14:06 → SUATTDRO 14:06 → 2NENU 14:27
PROVIDERS: ADMIT Internal Medicine; ATTEND Internal Medicine

== ENCOUNTER 2017-08-23 08:13 | Observation (INO) ==
[2017-08-23] MEDS ORDERED: methylPREDNISolone 125 MG/2 ML VIAL IVP ONE (08:14)
[2017-08-23] MEDS ORDERED: Ipratropium/Albuterol Neb 3 ML IH ONE (08:14)
--- NOTE | 2017-08-23 08:15 | Emergency Department Note ---
Disposition Clinical Impression: Acute exacerbation of chronic obstructive airways disease Disposition: Admitted As Inpatient Condition: Fair General Adult HPI - General Chief complaint: ED Shortness of Breath/Dyspnea Stated complaint: GER Time Seen by Provider: 08/23/17 08:14 - Related Data Home Medications Medication Instructions Recorded Confirmed Albuterol Sulfate [Ventolin Hfa] 2 puff IH Q6H PRN 07/07/17 08/23/17 Bisacodyl [Woman's Laxative] 10 mg PO DAILY PRN 07/07/17 08/23/17 Budesonide/Formoterol 160/4.5 2 puff IH BID 07/07/17 08/23/17 [Symbicort 160/4.5] Docusate [Colace] 100 mg PO BID 07/07/17 08/23/17 Omeprazole [PriLOSEC] 20 mg PO DAILY 07/07/17 08/23/17 Ondansetron HCl [Zofran] 4 mg PO TID PRN 07/07/17 08/23/17 Polyethylene Glycol 3350 [MiraLAX] 17 gm PO BID PRN 07/07/17 08/23/17 Sildenafil Citrate [Viagra] 50 mg PO AD PRN 07/07/17 08/23/17 Aspirin Enteric Coated [Aspirin EC] 81 mg PO DAILY 08/23/17 08/23/17 Oxygen 2.5 l .ROUTE AD 08/23/17 08/23/17 Previous Rx's Medication Instructions Recorded Ipratropium/Albuterol Neb [Duoneb] 3 ml IH Q6H PRN #30 inhsol 07/22/17 Amoxicillin/Clavulanate [Augmentin] 500 mg PO BIDWM #10 tablet 08/22/17 LORazepam [Ativan] 1 mg PO HS 3 Days #4 tablet 08/22/17 predniSONE [PredniSONE] 40 mg PO DAILY #5 tablet 08/22/17 Allergies Allergy/AdvReac Type Severity Reaction Status Date / Time haloperidol [From Haldol] AdvReac Muscle Pain Verified 08/05/17 05:57 [place] AdvReac Weakness Verified 08/05/17 05:57 Past Medical History - Past Medical History Medical history: Reports: COPD, hepatitis, other Surgical history: Reports: cholecystectomy Psychiatric history: Reports: anxiety, bipolar, depression, schizophrenia - Social History Smoking Status: Current every day smoker Smokeless Tobacco Status: No Alcohol use: Reports: none Drug use: Reports: other Course Vital Signs Temperature 98.7 F 08/23/17 08:15 Pulse Rate 145 08/23/17 08:15 Respiratory Rate 26 08/23/17 08:15 Blood Pressure 151/96 08/23/17 08:15 O2 Sat by Pulse Oximetry 100 08/23/17 08:15 Temperature 98.7 F 08/23/17 08:15 Pulse Rate 145 08/23/17 08:15 Respiratory Rate 18 08/23/17 09:45 Blood Pressure 122/83 08/23/17 09:45 O2 Sat by Pulse Oximetry 98 08/23/17 10:26 Oxygen Delivery Oxygen Delivery B[place] Medical Decision Making - Lab Data Result diagrams: 08/23/17 08:28 08/23/17 08:28 Lab Results 08/23/17 08/23/17 08/23/17 Range/Units 08:28 08:28 08:28 WBC 14.2 H D (4.3-11.1) K/mcL RBC 3.91 L (4.19-5.50) M/mcL Hgb 11.5 L (12.9-16.9) g/dL Hct 35.4 L (37.5-50.1) % MCV 90.5 (83.0-100.0) fL MCH 29.4 (28.0-33.3) pg MCHC 32.5 (31.6-35.5) g/dL RDW 14.3 (11.5-14.5) % Plt Count 174 (140-400) K/mcL MPV 9.2 L (9.4-12.4) fL Immature Gran % 4.2 H (0-4) % Seg Neutrophils % 87.4 % Lymphocytes % 2.3 % Monocytes % 5.9 % Eosinophils % 0.0 % Basophils % 0.2 % Neutrophils # 12.4 H (1.6-8.9) K/mcL Lymphocytes # 0.3 L (0.6-4.6) K/mcL Monocytes # 0.8 (0.0-1.3) K/mcL Eosinophils # 0.0 (0.0-0.6) K/mcL Basophils # 0.0 (0.0-0.2) K/mcL Nucleated RBCs/100 WBC 0.2 H (0) /100 WBC Immature Plt Fraction 3.3 (1.1-6.1) % ABG pH (7.32-7.45) pH Units ABG pCO2 (35-45) mmHg ABG pO2 (85-104) mmHg ABG HCO3 (21-27) mEq/L ABG Total CO2 (20-26) mEq/L ABG O2 Saturation (95-98) % ABG Base Excess (-2 to 3) mEq/L Sodium 135 L (136-145) mEq/L Potassium 3.7 (3.5-5.1) mEq/L Chloride 93 L (98-107) mEq/L Carbon Dioxide 39 H (23-29) mEq/L BUN 22 (8-23) mg/dL Creatinine 0.53 L (0.70-1.30) mg/dL Est GFR ( Amer) > 60 (> 60) Est GFR (Non-Af Amer) > 60 (> 60) BUN/Creatinine Ratio 42 H (6-26) Glucose 219 H (70-105) mg/dL Calculated Osmolality 290 (280-300) Lactic Acid 2.1 (0.5-2.2) mmol/L Calcium 9.0 (8.6-10.3) mg/dL Troponin I (< 0.04) ng/mL B-Natriuretic Peptide (Less than 100) pg/mL 08/23/17 08/23/17 08/23/17 Range/Units 08:28 08:28 08:42 WBC (4.3-11.1) K/mcL RBC (4.19-5.50) M/mcL Hgb (12.9-16.9) g/dL Hct (37.5-50.1) % MCV (83.0-100.0) fL MCH (28.0-33.3) pg MCHC (31.6-35.5) g/dL RDW (11.5-14.5) % Plt Count (140-400) K/mcL MPV (9.4-12.4) fL Immature Gran % (0-4) % Seg Neutrophils % % Lymphocytes % % Monocytes % % Eosinophils % % Basophils % % Neutrophils # (1.6-8.9) K/mcL Lymphocytes # (0.6-4.6) K/mcL Monocytes # (0.0-1.3) K/mcL Eosinophils # (0.0-0.6) K/mcL Basophils # (0.0-0.2) K/mcL Nucleated RBCs/100 WBC (0) /100 WBC Immature Plt Fraction (1.1-6.1) % ABG pH 7.38 (7.32-7.45) pH Units ABG pCO2 67 H (35-45) mmHg ABG pO2 265 H (85-104) mmHg ABG HCO3 39 H (21-27) mEq/L ABG Total CO2 41 H (20-26) mEq/L ABG O2 Saturation 100 H (95-98) % ABG Base Excess 12 H (-2 to 3) mEq/L Sodium (136-145) mEq/L Potassium (3.5-5.1) mEq/L Chloride (98-107) mEq/L Carbon Dioxide (23-29) mEq/L BUN (8-23) mg/dL Creatinine (0.70-1.30) mg/dL Est GFR ( Amer) (> 60) Est GFR (Non-Af Amer) (> 60) BUN/Creatinine Ratio (6-26) Glucose (70-105) mg/dL Calculated Osmolality (280-300) Lactic Acid (0.5-2.2) mmol/L Calcium (8.6-10.3) mg/dL Troponin I 0.03 (< 0.04) ng/mL B-Natriuretic Peptide 131 H (Less than 100) pg/mL Critical Care Time Critical Care Time: Yes Total Critical Care Time: 30 Attestation: The high probability of a clinically significant, sudden or life threatening deterioration of the [] system(s) required my full and direct attention, intervention and personal management. The aggregate critical care time was [] minutes. This time is in addition to time spent performing reported procedures but includes the following: [] Data Review and interpretation [] Patient assessment and monitoring of vital signs [] Documentation [] Medication orders and management Attestation Statement - Attestation Attestation: I examined this patient and my medical decision-making was reviewed with the Resident Physician. I agree with the documented findings, disposition and treatment plan as described except to the extent set forth below. [id number] time provided Patient arrives with increased work of breathing. EMS applied BiPAP prehospital. Patient required BiPAP therapy in the emergency department due to tachypnea, dyspnea, accessory muscle use. He has a known history of long- standing COPD.
[2017-08-23 08:40] LABS: Basophils % 0.2 %; Hematocrit 35.4 % (37.5-50.1); Hemoglobin 11.5 g/dL (12.9-16.9); Immature Granulocytes % 4.2 % (0-4); Immature Platelets 3.3 % (1.1-6.1); Lymphocytes # 0.3 K/mcL (0.6-4.6); Lymphocytes % 2.3 %; Mean Corpuscular HGB Conc 32.5 g/dL (31.6-35.5); Mean Corpuscular Hemoglobin 29.4 pg (28.0-33.3); Mean Corpuscular Volume 90.5 fL (83.0-100.0); Mean Platelet Volume 9.2 fL (9.4-12.4); Monocytes # 0.8 K/mcL (0.0-1.3); Monocytes % 5.9 %; Neutrophils # 12.4 K/mcL (1.6-8.9); Nucleated Red Blood Cells 0.2 /100 WBC (0); Platelet Count 174 K/mcL (140-400); Red Blood Count 3.91 M/mcL (4.19-5.50); Red Cell Distribution Width 14.3 % (11.5-14.5); Segmented Neutrophils % 87.4 %
[2017-08-23 08:51] LABS: ABG Base Excess 12 mEq/L (-2 to 3); ABG HCO3 39 mEq/L (21-27); ABG Oxygen Saturation 100 % (95-98); ABG PCO2 67 mmHg (35-45); ABG PH 7.38 pH Units (7.32-7.45); ABG PO2 265 mmHg (85-104); ABG TCO2 41 mEq/L (20-26)
[2017-08-23 08:59] LABS: BUN/Creatinine Ratio 42 (6-26); Blood Urea Nitrogen 22 mg/dL (8-23); Carbon Dioxide 39 mEq/L (23-29); Chloride 93 mEq/L (98-107); Glucose 219 mg/dL (70-105); Osmolality,Calculated 290 (280-300); Potassium 3.7 mEq/L (3.5-5.1); Sodium 135 mEq/L (136-145); eGFR For African Americans > 60 (> 60); eGFR For Non-African Americans > 60 (> 60)
--- NOTE | 2017-08-23 10:42 | Emergency Department Note ---
Disposition Clinical Impression: Acute exacerbation of chronic obstructive airways disease Disposition: Admitted As Inpatient Condition: Fair [facility]: [facility] [Primary Care Provider[facility] - Time of Disposition: 11:07 General Adult HPI - General Chief complaint: ED Shortness of Breath/Dyspnea Stated complaint: GER Time Seen by Provider: 08/23/17 08:14 Source: patient, EMS Limitations: no limitations Nursing Notes Reviewed: Yes Vital Signs Reviewed: Yes - History of Present Illness HPI Narrative: 61-year-old male recently discharged from hospital for COPD exacerbation presents with shortness of breath brought in by EMS patient was on home oxygen, and struggling to breathe this morning, he called EMS and received CPAP in route to the hospital. Patient's complaint of shortness breath denies chest pain, reports productive cough and wheezes, he is also recently diagnosed with pneumonia. Patient states that he has been feeling worse lately. Pt Subjective Complaint: Short of Breath Onset (ago): hour(s) Location: chest Pain Scale: 0 Improves with: nothing Worsens with: nothing Associated symptoms: Reports: shortness of breath. Denies: confusion, nausea/ vomiting - Related Data Home Medications Medication Instructions Recorded Confirmed Albuterol Sulfate [Ventolin Hfa] 2 puff IH Q6H PRN 07/07/17 08/23/17 Bisacodyl [Woman's Laxative] 10 mg PO DAILY PRN 07/07/17 08/23/17 Budesonide/Formoterol 160/4.5 2 puff IH BID 07/07/17 08/23/17 [Symbicort 160/4.5] Docusate [Colace] 100 mg PO BID 07/07/17 08/23/17 Omeprazole [PriLOSEC] 20 mg PO DAILY 07/07/17 08/23/17 Ondansetron HCl [Zofran] 4 mg PO TID PRN 07/07/17 08/23/17 Polyethylene Glycol 3350 [MiraLAX] 17 gm PO BID PRN 07/07/17 08/23/17 Sildenafil Citrate [Viagra] 50 mg PO AD PRN 07/07/17 08/23/17 Aspirin Enteric Coated [Aspirin EC] 81 mg PO DAILY 08/23/17 08/23/17 Oxygen 2.5 l .ROUTE AD 08/23/17 08/23/17 Previous Rx's Medication Instructions Recorded Ipratropium/Albuterol Neb [Duoneb] 3 ml IH Q6H PRN #30 inhsol 07/22/17 Amoxicillin/Clavulanate [Augmentin] 500 mg PO BIDWM #10 tablet 08/22/17 LORazepam [Ativan] 1 mg PO HS 3 Days #4 tablet 08/22/17 predniSONE [PredniSONE] 40 mg PO DAILY #5 tablet 08/22/17 Allergies Allergy/AdvReac Type Severity Reaction Status Date / Time haloperidol [From Haldol] AdvReac Muscle Pain Verified 08/05/17 05:57 [place] AdvReac Weakness Verified 08/05/17 05:57 All systems ED: reviewed and negative except as stated. Review of Systems: As Per HPI Constitutional: Denies: fever, chills Eyes: Denies: eye pain ENT ED: Denies: ear pain Cardiovascular: Denies: chest pain, palpitations Respiratory: Reports: as per HPI, cough, wheezes. Denies: dyspnea Gastrointestinal: Denies: abdominal pain, nausea, hematemesis Genitourinary: Denies: urgency, dysuria Musculoskeletal: Denies: back pain Integumentary: Denies: rash Neurological: Denies: headache Past Medical History - Past Medical History Attestation: Yes The following information was validated with the patient. Source: patient Medical history: Reports: COPD, hepatitis, other Surgical history: Reports: cholecystectomy Psychiatric history: Reports: anxiety, bipolar, depression, schizophrenia - Social History Smoking Status: Current every day smoker Smokeless Tobacco Status: No Alcohol use: Reports: none Drug use: Reports: other Physical Exam Constitutional: Patient with moderate respiratory distress, appears short of breath O2 95% on CPAP epicardia Neck: normal inspection, neck is supple, no JVD Resp: normal chest inspection, diffuse inspiratory wheezes, prolonged expiratory phase. CV: Tachycardic no murmurs/gallops/rubs, S1 and S2 heard Extremity: +2 bilateral radial and posterial tibial pulses, no pedal edema GI: normal inspection, Soft, NTND, no peritoneal signs, no palpable abdominal aortic aneurysm Back: normal inspection, no tenderness to palpation Skin: No rashes, skin warm, dry, intact - General Limitations: no limitations General appearance: alert, in distress Course Course Narrative: 61-year-old male appears to be in acute respiratory distress, COPD exacerbation BiPAP ordered, 2 nebs, patient did get slightly Medrol in route by squad, plan is for workup for pneumonia and COPD exacerbation and possible admission. - Reevaluation(s) Reevaluation #1: [id number] no evidence of infiltrate, he does have an elevated white blood cell count likely secondary to respiratory distress as well as steroid use, no evidence of pneumonia on the on his chest x-ray will be admitted for COPD exacerbation the hospitalist service Time: 11:07 Vital Signs Temperature 98.7 F 08/23/17 08:15 Pulse Rate 145 08/23/17 08:15 Respiratory Rate 26 08/23/17 08:15 Blood Pressure 151/96 08/23/17 08:15 O2 Sat by Pulse Oximetry 100 08/23/17 08:15 Temperature 98.7 F 08/23/17 08:15 Pulse Rate 145 08/23/17 08:15 Respiratory Rate 18 08/23/17 09:45 Blood Pressure 122/83 08/23/17 09:45 O2 Sat by Pulse Oximetry 100 08/23/17 08:36 Oxygen Delivery Oxygen Delivery Nasal Cannula Medical Decision Making - Medical Records Medical records reviewed: Yes I reviewed the patient's medical records. - Lab Data Lab results reviewed: Yes I reviewed the patient's lab results. Result diagrams: 08/23/17 08:28 08/23/17 08:28 Lab Results 08/23/17 08/23/17 08/23/17 Range/Units 08:28 08:28 08:28 WBC 14.2 H D (4.3-11.1) K/mcL RBC 3.91 L (4.19-5.50) M/mcL Hgb 11.5 L (12.9-16.9) g/dL Hct 35.4 L (37.5-50.1) % MCV 90.5 (83.0-100.0) fL MCH 29.4 (28.0-33.3) pg MCHC 32.5 (31.6-35.5) g/dL RDW 14.3 (11.5-14.5) % Plt Count 174 (140-400) K/mcL MPV 9.2 L (9.4-12.4) fL Immature Gran % 4.2 H (0-4) % Seg Neutrophils % 87.4 % Lymphocytes % 2.3 % Monocytes % 5.9 % Eosinophils % 0.0 % Basophils % 0.2 % Neutrophils # 12.4 H (1.6-8.9) K/mcL Lymphocytes # 0.3 L (0.6-4.6) K/mcL Monocytes # 0.8 (0.0-1.3) K/mcL Eosinophils # 0.0 (0.0-0.6) K/mcL Basophils # 0.0 (0.0-0.2) K/mcL Nucleated RBCs/100 WBC 0.2 H (0) /100 WBC Immature Plt Fraction 3.3 (1.1-6.1) % ABG pH (7.32-7.45) pH Units ABG pCO2 (35-45) mmHg ABG pO2 (85-104) mmHg ABG HCO3 (21-27) mEq/L ABG Total CO2 (20-26) mEq/L ABG O2 Saturation (95-98) % ABG Base Excess (-2 to 3) mEq/L Sodium 135 L (136-145) mEq/L Potassium 3.7 (3.5-5.1) mEq/L Chloride 93 L (98-107) mEq/L Carbon Dioxide 39 H (23-29) mEq/L BUN 22 (8-23) mg/dL Creatinine 0.53 L (0.70-1.30) mg/dL Est GFR ( Amer) > 60 (> 60) Est GFR (Non-Af Amer) > 60 (> 60) BUN/Creatinine Ratio 42 H (6-26) Glucose 219 H (70-105) mg/dL Calculated Osmolality 290 (280-300) Lactic Acid 2.1 (0.5-2.2) mmol/L Calcium 9.0 (8.6-10.3) mg/dL Troponin I (< 0.04) ng/mL 08/23/17 08/23/17 Range/Units 08:28 08:42 WBC (4.3-11.1) K/mcL RBC (4.19-5.50) M/mcL Hgb (12.9-16.9) g/dL Hct (37.5-50.1) % MCV (83.0-100.0) fL MCH (28.0-33.3) pg MCHC (31.6-35.5) g/dL RDW (11.5-14.5) % Plt Count (140-400) K/mcL MPV (9.4-12.4) fL Immature Gran % (0-4) % Seg Neutrophils % % Lymphocytes % % Monocytes % % Eosinophils % % Basophils % % Neutrophils # (1.6-8.9) K/mcL Lymphocytes # (0.6-4.6) K/mcL Monocytes # (0.0-1.3) K/mcL Eosinophils # (0.0-0.6) K/mcL Basophils # (0.0-0.2) K/mcL Nucleated RBCs/100 WBC (0) /100 WBC Immature Plt Fraction (1.1-6.1) % ABG pH 7.38 (7.32-7.45) pH Units ABG pCO2 67 H (35-45) mmHg ABG pO2 265 H (85-104) mmHg ABG HCO3 39 H (21-27) mEq/L ABG Total CO2 41 H (20-26) mEq/L ABG O2 Saturation 100 H (95-98) % ABG Base Excess 12 H (-2 to 3) mEq/L Sodium (136-145) mEq/L Potassium (3.5-5.1) mEq/L Chloride (98-107) mEq/L Carbon Dioxide (23-29) mEq/L BUN (8-23) mg/dL Creatinine (0.70-1.30) mg/dL Est GFR ( Amer) (> 60) Est GFR (Non-Af Amer) (> 60) BUN/Creatinine Ratio (6-26) Glucose (70-105) mg/dL Calculated Osmolality (280-300) Lactic Acid (0.5-2.2) mmol/L Calcium (8.6-10.3) mg/dL Troponin I 0.03 (< 0.04) ng/mL - Radiology Data Radiology results reviewed: Yes I reviewed the patient's radiology results. Chest X-Ray 08/23/17 08:14 IMPRESSION: No evidence of acute cardiopulmonary disease. Possible 8 mm right basilar pulmonary nodule, not markedly changed from prior. Continued follow-up may be obtained as warranted. D/ / Jon Thakkar MD / Jon Thakkar MD Interpreting Provider: Jon Thakkar MD - EKG Data EKG #1 EKG attestation: Yes I reviewed and interpreted this EKG. EKG shows normal: sinus rhythm Rate: tachycardia (1 41 bpm NM 140 QRS 80 QTc 334 no acute ischemic changes left axis, no ST segment depressions or elevations. Unchanged from previous EKG sinus tachycardia) [place]/QRS: normal
--- NOTE | 2017-08-23 14:17 | Internal Med History&Physical ---
Date of Encounter: 08/23/17 Time of Encounter: 11:00 Assessment and Plan (1) Acute exacerbation of chronic obstructive airways disease Current visit: Yes Status: Acute -Patient with no wheezing on exam and currently at baseline O2 requirements. -Will continue DuoNeb and monitor overnight. (2) Chronic respiratory failure with hypercapnia Current visit: Yes Status: Acute -Will continue supplemental oxygen (3) IV drug abuse Current visit: No Status: Chronic -We will be careful with pain narcotics and also benzodiazepines (4) Tobacco abuse Current visit: No Status: Chronic -Discussed with patient about smoking cessation Internal Medicine - H&P: HPI Chief complaint: Shortness of breath Admitted From: Home Plans for Post Hospital Care: Home History of present illness: Patient is a 61-year-old male with past medical history significant for IV drug abuse/tobacco abuse and COPD with chronic respiratory failure (O2 dependent) who presents to the ER due to shortness of breath. Patient was recently admitted to [facility] on 08/16/17 and just discharged on 08/22/17 for COPD exacerbation. Patient reports that symptoms have not improved so decided to return to the ER. In the ER, patient with slightly elevated PCO2 on blood gases but patient most likely a chronic CO2 retainer due to COPD/emphysema; pH within normal limits. Chest x-ray showed no acute findings. Patient will be admitted to medical surgical floor for COPD exacerbation. Past Med Surg Social Fam HX - Past Medical History Medical history: COPD, hepatitis, other Psychiatric history: anxiety, bipolar, depression, schizophrenia - Past Surgical History Surgical History: cholecystectomy - Social History Smoking Status: Current every day smoker Packs per day: 1 Smokeless Tobacco Status: No Alcohol use: none Drug use: other - Family History Mother Adopted: No Family Member Ethnicity: Non- Living Status: Hx Family Cardiac Disorders: Yes Hx Family Respiratory Disorders: Yes (dad emphezema) Hx Family Cancer: Yes (lung CA) Hx Family GI Disorders: No Hx Family Endocrine Disorder: Yes (DM) Hx Family Neuromuscular Disorders: No Hx Family Neurologic Disorders: No Hx Family HEENT Disorders: No Hx Family Autoimmune Disorders: No Father Adopted: No Family Member Ethnicity: Non- Living Status: Hx Family Cardiac Disorders: No Hx Family Respiratory Disorders: Yes Hx Family Cancer: Yes Hx Family GI Disorders: No Hx Family Endocrine Disorder: No Hx Family Neuromuscular Disorders: No Hx Family Neurologic Disorders: No Hx Family HEENT Disorders: No Hx Family Autoimmune Disorders: No Brother Family Member Ethnicity: Non- Living Status: Still Living Hx Family Respiratory Disorders: Yes (Emphysema) Sister Family Member Ethnicity: Non- Living Status: Still Living Internal Medicine - H&P: Meds Albuterol Sulfate [Ventolin Hfa] 2 puff IH Q6H PRN 07/07/17 [History] Bisacodyl [Woman's Laxative] 10 mg PO DAILY PRN 07/07/17 [History] Budesonide/Formoterol 160/4.5 [Symbicort 160/4.5] 2 puff IH BID 07/07/17 [ History] Docusate [Colace] 100 mg PO BID 07/07/17 [History] Omeprazole [PriLOSEC] 20 mg PO DAILY 07/07/17 [History] Ondansetron HCl [Zofran] 4 mg PO TID PRN 07/07/17 [History] Polyethylene Glycol 3350 [MiraLAX] 17 gm PO BID PRN 07/07/17 [History] Sildenafil Citrate [Viagra] 50 mg PO AD PRN 07/07/17 [History] Ipratropium/Albuterol Neb [Duoneb] 3 ml IH Q6H PRN #30 inhsol 07/22/17 [Rx] Amoxicillin/Clavulanate [Augmentin] 500 mg PO BIDWM #10 tablet 08/22/17 [Rx] LORazepam [Ativan] 1 mg PO HS 3 Days #4 tablet 08/22/17 [Rx] predniSONE [PredniSONE] 40 mg PO DAILY #5 tablet 08/22/17 [Rx] Aspirin Enteric Coated [Aspirin EC] 81 mg PO DAILY 08/23/17 [History] Oxygen 2.5 l .ROUTE AD 08/23/17 [History] 3 Allergy/AdvReac Type Severity Reaction Status Date / Time haloperidol [From Haldol] AdvReac Muscle Pain Verified 08/05/17 05:57 [place] AdvReac Weakness Verified 08/05/17 05:57 All Systems PM: A 10-system review of systems was performed and is negative for pertinent findings except as documented above in the HPI. - Constitutional Vitals: Temp Pulse Resp BP Pulse Ox 98.7 F 145 18 122/83 98 08/23/17 08:15 08/23/17 08:15 08/23/17 09:45 08/23/17 09:45 08/23/17 10:26 General appearance: Present: A&O X 3, no acute distress - Eye Eye exam: Present: normal appearance - Respiratory Respiratory exam: Present: CTAB. Absent: accessory muscle use, rales, rhonchi, wheezes - Cardiovascular Cardiovascular exam: Present: RRR, +S1, +S2. Absent: diastolic murmur, gallop, rubs, systolic murmur - GI/Abdominal GI/Abdominal exam: Present: normal bowel sounds, soft, no peritoneal signs. Absent: distended, tenderness - Extremities Exam Extremities exam: Absent: pedal edema - Neurological Exam Neurological exam: Present: oriented X3 - Psychiatric Psychiatric exam: Present: normal mood Internal Med - H&P Results - Labs CBC & Chem 7: 08/23/17 08:28 08/23/17 08:28
[2017-08-23] MEDS ORDERED: Naloxone 0.4 MG/ML INJ IVP PRN (14:33)
[2017-08-23] MEDS ORDERED: NON-FORMULARY MEDICATION 1 EACH EACH (Sildenafil Citrate [Viagra] 50 MG) PO PRN (14:39)
[2017-08-23] MEDS ORDERED: Ondansetron ODT 4 MG TAB.RAPDIS PO PRN (14:39)
[2017-08-23] MEDS: Ipratropium/Albuterol Neb 3 ML IH SCH ×3 (15:46→23:46)
[2017-08-23] MEDS: Budesonide/Formoterol 160/4.5 MDI IH SCH (20:01)
[2017-08-23] MEDS: *HR* LORazepam 1 MG TABLET PO SCH (21:17)
[2017-08-23] MEDS: *HR* Heparin 5,000 UNIT/ML VIAL SQ SCH (21:19)
[2017-08-24] MEDS: Ipratropium/Albuterol Neb 3 ML IH SCH ×6 (03:41→23:05)
[2017-08-24] MEDS: *HR* Heparin 5,000 UNIT/ML VIAL SQ SCH ×3 (05:38→21:42)
[2017-08-24 05:46] LABS: BUN/Creatinine Ratio 46 (6-26); Blood Urea Nitrogen 23 mg/dL (8-23); Calcium 8.3 mg/dL (8.6-10.3); Carbon Dioxide 40 mEq/L (23-29); Chloride 92 mEq/L (98-107); Glucose 286 mg/dL (70-105); Osmolality,Calculated 296 (280-300); Potassium 3.7 mEq/L (3.5-5.1); Sodium 136 mEq/L (136-145); eGFR For African Americans > 60 (> 60); eGFR For Non-African Americans > 60 (> 60)
[2017-08-24] MEDS: Budesonide/Formoterol 160/4.5 MDI IH SCH ×2 (07:38→19:50)
[2017-08-24] MEDS: Aspirin Enteric Coated 81 MG Tablet PO SCH (07:46)
[2017-08-24] MEDS: predniSONE 20 MG TABLET PO SCH (07:46)
[2017-08-24 07:49] LABS: Basophils % 0.1 %; Hematocrit 28.7 % (37.5-50.1); Hemoglobin 9.6 g/dL (12.9-16.9); Immature Granulocytes % 2.7 % (0-4); Immature Platelets 2.6 % (1.1-6.1); Lymphocytes # 0.7 K/mcL (0.6-4.6); Mean Corpuscular HGB Conc 33.4 g/dL (31.6-35.5); Mean Corpuscular Hemoglobin 29.9 pg (28.0-33.3); Mean Corpuscular Volume 89.4 fL (83.0-100.0); Monocytes # 0.5 K/mcL (0.0-1.3); Monocytes % 6.2 %; Neutrophils # 7.3 K/mcL (1.6-8.9); Platelet Count 130 K/mcL (140-400); Red Blood Count 3.21 M/mcL (4.19-5.50); Red Cell Distribution Width 14.4 % (11.5-14.5)
[2017-08-24 09:07] LABS: Hemoglobin A1C 6.4 %
--- NOTE | 2017-08-24 12:52 | Internal Med Progress Note ---
Date of Encounter: 08/24/17 Time of Encounter: 12:50 - Assessment and plan (1) Acute and chronic respiratory failure with hypoxia Current Visit: No Status: Acute Assessment and plan: From COPD exacerbation. Likely etiology is viral or other trigger, less likely bacterial. Continue Solu-Medrol, supplemental O2, Duo Nebs. (2) Acute exacerbation of chronic obstructive airways disease Current Visit: Yes Status: Acute (3) SIRS (systemic inflammatory response syndrome) Current Visit: Yes Status: Acute Assessment and plan: Leukocytosis and Tachycardia. Patient identifiable source of infection. Suspect these are from respiratory distress of COPD exacerbation. He does not complain of sputum production. No known sick contacts. Will monitor and if develops signs of infection will treat empiricallly. Obtain sputum culture, procalcitonin, urinary antigens. (4) IV drug abuse Current Visit: No Status: Chronic (5) Schizoaffective disorder, bipolar type Current Visit: No Status: Chronic Assessment and plan: Not on any home medications for this. (6) Pre-diabetes Current Visit: Yes Status: Acute Assessment and plan: Glucose >200s, A1C resulted in 6.4%. This may be a new diagnosis to patient as I do not see this in record. I will talk with patient later today about this diagnosis if it is new to him. Patient will need glycemic control here with levemir, ADA, and glucose checks AC and HS with sliding scale. will likely worsen with Solu medrol and close follow-up as outpatient. - Subjective Interval history: Patient stating he is still having difficult time with breathing. Admits to nausea but states this is improving. He denies chest pain, fevers/chills, diarrhea. - Constitutional Vitals: Temp Pulse Resp BP Pulse Ox 97.7 F 106 16 130/81 100 08/24/17 10:24 08/24/17 10:24 08/24/17 11:14 08/24/17 10:24 08/24/17 11:14 General appearance: Present: A&O X 3, no acute distress - Head Head exam: Present: atraumatic, normocephalic - Eye Eye exam: Present: PERRL, conjuntiva pink, sclera anicteric Pupils: Present: PERRL - Respiratory Respiratory exam: Present: decreased breath sounds, respiratory distress, wheezes - Cardiovascular Cardiovascular exam: Present: RRR, +S1, +S2. Absent: diastolic murmur, gallop, rubs, systolic murmur - Extremities Exam Extremities exam: Present: warm, radial pulses palpable and symmetrical. Absent : calf tenderness, cyanotic, pedal edema - Skin Skin exam: Present: dry, intact Internal Medicine: Result - Labs CBC & Chem 7: 08/24/17 06:24 08/24/17 04:39 Labs: Short CBC 08/24/17 Range/Units 06:24 WBC 8.8 (4.3-11.1) K/mcL Hgb 9.6 L D (12.9-16.9) g/dL Hct 28.7 L (37.5-50.1) % Plt Count 130 L (140-400) K/mcL Neutrophils # 7.3 (1.6-8.9) K/mcL BMP 08/24/17 04:39 Sodium 136 Potassium 3.7 Chloride 92 L Carbon Dioxide 40 H* BUN 23 Creatinine 0.50 L Glucose 286 H Calcium 8.3 L Cardiac Enzymes 08/23/17 Range/Units 15:33 Troponin I 0.03 (< 0.04) ng/mL - ABG Interpretation ABG results: ABG ABG pH 7.38 pH Units (7.32-7.45) 08/23/17 08:42 ABG pCO2 67 mmHg (35-45) H 08/23/17 08:42 ABG pO2 265 mmHg (85-104) H 08/23/17 08:42 ABG O2 Saturation 100 % (95-98) H 08/23/17 08:42 Consult Discharge Plan - Plan [facility]errals: [facility] [Primary Care Provider[facility] -
[2017-08-24] MEDS ORDERED: Insulin DETEMIR 100 UNIT/ML X5UNITS SQ ONE (13:02)
[2017-08-24 15:05] LABS: Adenovirus F 40/41 PCR Not detected (Not detect); Astrovirus PCR Not detected (Not detect); C.difficile Toxin A/B by PCR Not detected (Not detect); Campylobacter by PCR Not detected (Not detect); Cryptosporidium by PCR Not detected (Not detect); Cyclospora cayetanensis PCR Not detected (Not detect); E. coli O157 by PCR Not detected (Not detect); Entamoeba histolytica PCR Not detected (Not detect); Enteroaggregative E.coli(EAEC) Not detected (Not detect); Enteropathogenic E.coli(EPEC) Not detected (Not detect); Enterotoxigenic E.coli (ETEC) Not detected (Not detect); Giardia lamblia PCR Not detected (Not detect); Norovirus GI/GII PCR Not detected (Not detect); Plesiomonas shigelloides PCR Not detected (Not detect); Rotavirus A PCR Not detected (Not detect); Salmonella PCR Not detected (Not detect); Sapovirus PCR Not detected (Not detect); Shig/EnteroinvasiveE coli EIEC Not detected (Not detect); Shigalike tox-prod E coli STEC Not detected (Not detect); Vibrio PCR Not detected (Not detect); Vibrio cholerae PCR Not detected (Not detect); Yersinia enterocolitica PCR Not detected (Not detect)
[2017-08-24] MEDS: Insulin LISPRO 300 UNITS/3 ML VIAL SQ SCH (16:29)
[2017-08-24] MEDS ORDERED: Insulin LISPRO 300 UNITS/3 ML VIAL SQ SCH (21:00)
[2017-08-24] MEDS: *HR* LORazepam 1 MG TABLET PO SCH (21:42)
[2017-08-25 03:27] LABS: Basophils % 0.1 %; Hematocrit 28.8 % (37.5-50.1); Hemoglobin 9.6 g/dL (12.9-16.9); Immature Granulocytes % 2.4 % (0-4); Lymphocytes # 1.1 K/mcL (0.6-4.6); Lymphocytes % 14.9 %; Mean Corpuscular HGB Conc 33.3 g/dL (31.6-35.5); Mean Corpuscular Hemoglobin 30.3 pg (28.0-33.3); Mean Corpuscular Volume 90.9 fL (83.0-100.0); Mean Platelet Volume 10.3 fL (9.4-12.4); Monocytes # 0.4 K/mcL (0.0-1.3); Monocytes % 5.9 %; Neutrophils # 5.5 K/mcL (1.6-8.9); Platelet Count 114 K/mcL (140-400); Red Blood Count 3.17 M/mcL (4.19-5.50); Red Cell Distribution Width 14.4 % (11.5-14.5); Segmented Neutrophils % 76.7 %
[2017-08-25] MEDS: Ipratropium/Albuterol Neb 3 ML IH SCH ×2 (03:39→07:33)
[2017-08-25 03:45] LABS: BUN/Creatinine Ratio 42 (6-26); Blood Urea Nitrogen 19 mg/dL (8-23); Calcium 8.2 mg/dL (8.6-10.3); Carbon Dioxide 40 mEq/L (23-29); Chloride 90 mEq/L (98-107); Glucose 282 mg/dL (70-105); Osmolality,Calculated 290 (280-300); Potassium 3.3 mEq/L (3.5-5.1); Sodium 134 mEq/L (136-145); eGFR For African Americans > 60 (> 60); eGFR For Non-African Americans > 60 (> 60)
[2017-08-25] MEDS: *HR* Heparin 5,000 UNIT/ML VIAL SQ SCH ×3 (06:01→21:15)
[2017-08-25] MEDS: Budesonide/Formoterol 160/4.5 MDI IH SCH ×2 (07:33→21:31)
--- NOTE | 2017-08-25 07:48 | Internal Med Progress Note ---
Date of Encounter: 08/25/17 Time of Encounter: 07:45 - Assessment and plan (1) Acute and chronic respiratory failure with hypoxia Current Visit: No Status: Acute Assessment and plan: From COPD exacerbation. Likely etiology is viral or other trigger, less likely bacterial. Continue Solu-Medrol, supplemental O2, Duo Nebs. Has diminished breath sounds but based on patient's history this may be his baseline. Will monitor today and if clinically improves, possibly DC home tomorrow. (2) Acute exacerbation of chronic obstructive airways disease Current Visit: Yes Status: Acute Assessment and plan: Unknown trigger based on negative CXR and viral panel. Continue to treat with Prednisone, Duo Nebs as needed. (3) SIRS (systemic inflammatory response syndrome) Current Visit: Yes Status: Acute Assessment and plan: Leukocytosis and Tachycardia. Patient identifiable source of infection. Suspect these are from respiratory distress of COPD exacerbation. He does not complain of sputum production. No known sick contacts. Will monitor and if develops signs of infection will treat empiricallly. Obtain sputum culture, procalcitonin, urinary antigens. - WBC improved without antibiotic or antiviral therapy. [place]key leukocytosis was from respiratory distress. Hemodynamically stable. - Tachycardia persists, may be from Duo Nebs. Will switch to xopenex (4) IV drug abuse Current Visit: No Status: Chronic Assessment and plan: No signs of acute withdrawal (5) Schizoaffective disorder, bipolar type Current Visit: No Status: Chronic Assessment and plan: Not on any home medications for this. (6) Pre-diabetes Current Visit: Yes Status: Acute Assessment and plan: Glucose >200s, A1C resulted in 6.4%. Patient was unaware of this diagnosis. I had discussion with him about this new diagnosis. Patient will need glycemic control here with levemir, ADA, and glucose checks AC and HS with sliding scale. will likely worsen with Solu medrol and close follow-up as outpatient. - Subjective Interval history: Breathing and nausea improved. He denies chest pain, fevers/chills, diarrhea. - Constitutional Vitals: Temp Pulse Resp BP Pulse Ox 98.0 F 90 17 131/78 100 08/25/17 07:04 08/25/17 07:04 08/25/17 07:04 08/25/17 07:04 08/25/17 07:04 General appearance: Present: A&O X 3, no acute distress - Head Head exam: Present: atraumatic, normocephalic - Eye Eye exam: Present: PERRL, conjuntiva pink, sclera anicteric Pupils: Present: PERRL - Neck Neck exam general surgery: Present: supple, trachea midline. Absent: lymphadenopathy - Respiratory Respiratory exam: Present: decreased breath sounds (Poor air exchange at bases) , wheezes. Absent: accessory muscle use, rales, rhonchi - Cardiovascular Cardiovascular exam: Present: RRR, +S1, +S2. Absent: diastolic murmur, gallop, rubs, systolic murmur - GI/Abdominal GI/Abdominal exam: Present: normal bowel sounds, soft, no peritoneal signs. Absent: distended, tenderness - Extremities Exam Extremities exam: Present: warm, radial pulses palpable and symmetrical. Absent : calf tenderness, cyanotic, pedal edema - Neurological Exam Neurological exam: Present: CN II-XII intact, oriented X3, no focal deficits. Absent: pronater drift, facial droop, speech deficit - Skin Skin exam: Present: dry, intact Internal Medicine: Result - Labs CBC & Chem 7: 08/25/17 03:11 08/25/17 03:11 Labs: Short CBC 08/24/17 08/25/17 Range/Units 06:24 03:11 WBC 8.8 7.1 (4.3-11.1) K/mcL Hgb 9.6 L D 9.6 L (12.9-16.9) g/dL Hct 28.7 L 28.8 L (37.5-50.1) % Plt Count 130 L 114 L (140-400) K/mcL Neutrophils # 7.3 5.5 (1.6-8.9) K/mcL BMP 08/25/17 03:11 Sodium 134 L Potassium 3.3 L Chloride 90 L Carbon Dioxide 40 H* BUN 19 Creatinine 0.45 L Glucose 282 H Calcium 8.2 L - ABG Interpretation ABG results: ABG ABG pH 7.38 pH Units (7.32-7.45) 08/23/17 08:42 ABG pCO2 67 mmHg (35-45) H 08/23/17 08:42 ABG pO2 265 mmHg (85-104) H 08/23/17 08:42 ABG O2 Saturation 100 % (95-98) H 08/23/17 08:42 Consult Discharge Plan - Plan [facility]errals: [facility] Care Provider[facility] -
[2017-08-25] MEDS ORDERED: Insulin DETEMIR 100 UNIT/ML X5UNITS SQ ONE (07:54)
[2017-08-25] MEDS ORDERED: Dextrose Gel 15 GM/37.5 ML TUBE PO PRN ×2 (08:01)
[2017-08-25] MEDS ORDERED: *HR* Dextrose 50 % in Water (Syg) 50 ML SYRINGE IVP PRN (08:01)
[2017-08-25] MEDS ORDERED: D5% in Water 1,000 ML IVC PRN (08:01)
[2017-08-25] MEDS: Aspirin Enteric Coated 81 MG Tablet PO SCH (08:35)
[2017-08-25] MEDS: predniSONE 20 MG TABLET PO SCH (08:35)
[2017-08-25] MEDS: Insulin LISPRO 300 UNITS/3 ML VIAL SQ SCH ×4 (08:36→16:48)
[2017-08-25 10:05] LABS: Adenovirus Not Detected (Not Detect); Bordetella Pertussis Not Detected (Not Detect); Chlamydophila pneumoniae Not Detected (Not Detect); Coronavirus 229E Not Detected (Not Detect); Coronavirus HKU1 Not Detected (Not Detect); Coronavirus NL63 Not Detected (Not Detect); Coronavirus OC43 Not Detected (Not Detect); Human Metapneumovirus Not Detected (Not Detect); Human Rhinovirus/Enterovirus Not Detected (Not Detect); Influenza A Subtype 2009 H1 Not Detected (Not Detect); Influenza A Untypeable Not Detected (Not Detect); Influenza B Not Detected (Not Detect); Mycoplasma pneumoniae Not Detected (Not Detect); Parainfluenza Virus 1 Not Detected (Not Detect); Parainfluenza Virus 2 Not Detected (Not Detect); Parainfluenza Virus 3 Not Detected (Not Detect); Parainfluenza Virus 4 Not Detected (Not Detect); Respiratory Syncytial Virus Not Detected (Not Detect)
[2017-08-25] MEDS: Levalbuterol Neb 1.25 MG/3 ML IH SCH ×4 (10:46→21:30)
[2017-08-25] MEDS: Ipratropium Neb 0.5 MG NEBULIZER IH SCH ×2 (15:39→21:30)
[2017-08-25] MEDS ORDERED: Insulin LISPRO 300 UNITS/3 ML VIAL SQ SCH (21:00)
[2017-08-25] MEDS: *HR* LORazepam 1 MG TABLET PO SCH (21:14)
[2017-08-26] MEDS: Levalbuterol Neb 1.25 MG/3 ML IH SCH ×3 (03:37→15:45)
[2017-08-26] MEDS: Ipratropium Neb 0.5 MG NEBULIZER IH SCH ×3 (03:37→15:45)
[2017-08-26 03:58] LABS: Basophils % 0.2 %; Eosinophils % 0.2 %; Hematocrit 30.6 % (37.5-50.1); Immature Granulocytes % 3.2 % (0-4); Lymphocytes # 1.1 K/mcL (0.6-4.6); Lymphocytes % 13.1 %; Mean Corpuscular HGB Conc 32.7 g/dL (31.6-35.5); Mean Corpuscular Hemoglobin 29.8 pg (28.0-33.3); Mean Corpuscular Volume 91.1 fL (83.0-100.0); Mean Platelet Volume 10.4 fL (9.4-12.4); Monocytes # 0.5 K/mcL (0.0-1.3); Monocytes % 5.5 %; Neutrophils # 6.4 K/mcL (1.6-8.9); Platelet Count 121 K/mcL (140-400); Red Blood Count 3.36 M/mcL (4.19-5.50); Red Cell Distribution Width 14.4 % (11.5-14.5); Segmented Neutrophils % 77.8 %
[2017-08-26 04:15] LABS: BUN/Creatinine Ratio 38 (6-26); Blood Urea Nitrogen 20 mg/dL (8-23); Calcium 8.2 mg/dL (8.6-10.3); Carbon Dioxide 41 mEq/L (23-29); Chloride 91 mEq/L (98-107); Glucose 270 mg/dL (70-105); Osmolality,Calculated 290 (280-300); Sodium 134 mEq/L (136-145); eGFR For African Americans > 60 (> 60); eGFR For Non-African Americans > 60 (> 60)
[2017-08-26] MEDS: *HR* Heparin 5,000 UNIT/ML VIAL SQ SCH (05:36)
[2017-08-26] MEDS: predniSONE 20 MG TABLET PO SCH (09:32)
[2017-08-26] MEDS: Aspirin Enteric Coated 81 MG Tablet PO SCH (09:33)
[2017-08-26] MEDS: Insulin LISPRO 300 UNITS/3 ML VIAL SQ SCH ×2 (09:33→12:10)
[2017-08-26 10:53] VITALS: BP 147/75
[2017-08-26] MEDS: Budesonide/Formoterol 160/4.5 MDI IH SCH (10:57)
--- NOTE | 2017-08-26 12:59 | Discharge Summary ---
Date of Encounter: 08/26/17 Time of Encounter: 12:56 - Discharge Diagnosis (1) DVT prophylaxis Priority: Secondary Status: Acute (2) Bipolar disease, chronic Priority: Secondary Status: Chronic (3) Pre-diabetes Priority: Secondary Status: Chronic (4) SIRS (systemic inflammatory response syndrome) Priority: Secondary Status: Resolved (5) Acute and chronic respiratory failure with hypoxia Priority: Primary Status: Resolved (6) Acute exacerbation of chronic obstructive airways disease Priority: Primary Status: Acute - Discharge Medications Prescriptions: predniSONE [PredniSONE] 40 mg PO DAILY #3 tablet Home Medications: Albuterol Sulfate [Ventolin Hfa] 2 puff IH Q6H PRN 07/07/17 [History] Bisacodyl [Woman's Laxative] 10 mg PO DAILY PRN 07/07/17 [History] Budesonide/Formoterol 160/4.5 [Symbicort 160/4.5] 2 puff IH BID 07/07/17 [ History] Docusate [Colace] 100 mg PO BID 07/07/17 [History] Omeprazole [PriLOSEC] 20 mg PO DAILY 07/07/17 [History] Ondansetron HCl [Zofran] 4 mg PO TID PRN 07/07/17 [History] Polyethylene Glycol 3350 [MiraLAX] 17 gm PO BID PRN 07/07/17 [History] Sildenafil Citrate [Viagra] 50 mg PO AD PRN 07/07/17 [History] Ipratropium/Albuterol Neb [Duoneb] 3 ml IH Q6H PRN #30 inhsol 07/22/17 [Rx] LORazepam [Ativan] 1 mg PO HS 3 Days #4 tablet 08/22/17 [Rx] predniSONE [PredniSONE] 40 mg PO DAILY #5 tablet 08/22/17 [Rx] Aspirin Enteric Coated [Aspirin EC] 81 mg PO DAILY 08/23/17 [History] Oxygen 2.5 l .ROUTE AD 08/23/17 [History] predniSONE [PredniSONE] 40 mg PO DAILY #3 tablet 08/26/17 [Rx] Allergies/Adverse Reactions: 3 Allergy/AdvReac Type Severity Reaction Status Date / Time haloperidol [From Haldol] AdvReac Muscle Pain Verified 08/05/17 05:57 [place] AdvReac Weakness Verified 08/05/17 05:57 Date of admission: 08/23/17 09:16 Primary care physician: PCP DC Consults: 08/25/17 09:45 Consult to Surgical Instrument Maker [CONS] Routine Reason for Consult: needs trans to tx medical Discharging clinician: Marge Harden Anticipated date of discharge: 08/26/17 - Patient Status Disposition: Home, Self-Care Condition: Good Functional capacity at discharge: independent ambulation Overall status at discharge: patient is back to baseline - Discharge Instructions [facility] With: [facility]Primary Care Provider[facility] - Forms: ED Satisfaction Letter Additional Instructions: Please follow up with your primary care physician and pulmonology within one week after your discharge from the hospital Continue oral prednisone as prescribed. Resume home medications as prescribed by your primary care physician. - Diet and Activity Activity: resume usual activities as tolerated, wear oxygen at all times, wear oxygen at night Diet: low salt diet Hospital course: Mr. Sosa is a 61 year old male with PMH Of IV drug abuse/tobacco abuse, COPD on LTOT admitted for acute respiratory distress secondary to COPD exacerbation. Pt was started on systemic steroids and bronchodilator support. He responded appropriately to therapy and currently back to baseline respiratory status. He continued to refuse bipap support. He is medically stable and will be discharged with PO steroids. He is to follow up with PCP and pulmonology after discharge. - Time Spent with Patient Total time spent providing and/or coordinating discharge services: Less than 30 minutes - Constitutional Vitals: Temp Pulse Resp BP Pulse Ox 98.2 F 109 18 147/75 98 08/26/17 10:47 08/26/17 10:47 08/26/17 11:00 08/26/17 10:47 08/26/17 11:00 General appearance: Present: A&O X 3, no acute distress - Head Head exam: Present: atraumatic, normocephalic - Eye Eye exam: Present: conjuntiva pink, sclera anicteric - Respiratory Respiratory exam: Absent: rales (equal air entry bilaterally ), respiratory distress, wheezes - Cardiovascular Cardiovascular exam: Present: RRR, +S1, +S2. Absent: diastolic murmur, gallop, rubs, systolic murmur - GI/Abdominal GI/Abdominal exam: Present: normal bowel sounds, soft, no peritoneal signs. Absent: distended, tenderness - Extremities Exam Extremities exam: Present: warm, radial pulses palpable and symmetrical. Absent : calf tenderness, pedal edema - Neurological Exam Neurological exam: Present: alert, oriented X3 - Psychiatric Psychiatric exam: Present: normal affect, normal mood
--- NOTE | 2017-08-26 13:57 | Physician Discharge Referral ---
Home Health/Hosp Referral Info Transfer to: Home Health Provider in Charge Post Discharge: PCP - Diagnosis (1) DVT prophylaxis Priority: Secondary Status: Acute (2) Bipolar disease, chronic Priority: Secondary Status: Chronic (3) Pre-diabetes Priority: Secondary Status: Chronic (4) SIRS (systemic inflammatory response syndrome) Priority: Primary Status: Resolved (5) Acute and chronic respiratory failure with hypoxia Priority: Primary Status: Resolved (6) Acute exacerbation of chronic obstructive airways disease Priority: Primary Status: Acute - Respiratory Orders Smoking Cessation: Smoking cessation has been advised. For more information, call the [place] Tobacco Quit Line at 0-045-UJFLNOW. - Services Needed Following services are medically necessary services: Nursing, Home Health Aide, Physical Therapy, Occupational Therapy - Transfer Medications Prescriptions: predniSONE [PredniSONE] 40 mg PO DAILY #3 tablet Home Medications: Albuterol Sulfate [Ventolin Hfa] 2 puff IH Q6H PRN 07/07/17 [History] Bisacodyl [Woman's Laxative] 10 mg PO DAILY PRN 07/07/17 [History] Budesonide/Formoterol 160/4.5 [Symbicort 160/4.5] 2 puff IH BID 07/07/17 [ History] Docusate [Colace] 100 mg PO BID 07/07/17 [History] Omeprazole [PriLOSEC] 20 mg PO DAILY 07/07/17 [History] Ondansetron HCl [Zofran] 4 mg PO TID PRN 07/07/17 [History] Polyethylene Glycol 3350 [MiraLAX] 17 gm PO BID PRN 07/07/17 [History] Sildenafil Citrate [Viagra] 50 mg PO AD PRN 07/07/17 [History] Ipratropium/Albuterol Neb [Duoneb] 3 ml IH Q6H PRN #30 inhsol 07/22/17 [Rx] LORazepam [Ativan] 1 mg PO HS 3 Days #4 tablet 08/22/17 [Rx] predniSONE [PredniSONE] 40 mg PO DAILY #5 tablet 08/22/17 [Rx] Aspirin Enteric Coated [Aspirin EC] 81 mg PO DAILY 08/23/17 [History] Oxygen 2.5 l .ROUTE AD 08/23/17 [History] predniSONE [PredniSONE] 40 mg PO DAILY #3 tablet 08/26/17 [Rx] Allergies/Adverse Reactions: 3 Allergy/AdvReac Type Severity Reaction Status Date / Time haloperidol [From Haldol] AdvReac Muscle Pain Verified 08/05/17 05:57 [place] AdvReac Weakness Verified 08/05/17 05:57 Certification: Further, I certify that my clinical findings support that this patient is homebound (i.e. absences from home require considerable and taxing effort and are for medical reasons or buddhism services or infrequently or short duration when for other reasons) because: Homebound Reason: Patient requires assistance of a person or device to safely leave home Attestation: My signature below is to certify that this patient is under my care and that I, or nurse practitioner, or a physician's or assistant working with me, has a face-to -face encounter with this patient.
--- NOTE | 2017-08-26 19:22 | Electrocardiograph Report ---
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
[2017-08-27 08:12] LABS: Mycoplasma pneumoniae IgG 0.12 U/L (<=0.09)
== END 2017-08-26 17:24 | disposition home health service (06) ==
LOC: EMEROO 08:13 → 2ANU 08:13
PROVIDERS: ADMIT Internal Medicine; ATTEND Internal Medicine

== ENCOUNTER 2017-11-21 17:57 | Inpatient (IN) ==
[2017-11-21] MEDS ORDERED: Ipratropium/Albuterol Neb 3 ML IH ONE (18:01)
[2017-11-21 18:30] LABS: Basophils % 0.2 %; Eosinophils # 0.1 K/mcL (0.0-0.6); Eosinophils % 0.7 %; Hematocrit 35.7 % (37.5-50.1); Hemoglobin 11.6 g/dL (12.9-16.9); Immature Granulocytes % 0.5 % (0-4); Lymphocytes # 1.6 K/mcL (0.6-4.6); Lymphocytes % 18.8 %; Mean Corpuscular HGB Conc 32.5 g/dL (31.6-35.5); Mean Corpuscular Hemoglobin 30.1 pg (28.0-33.3); Mean Corpuscular Volume 92.7 fL (83.0-100.0); Mean Platelet Volume 10.7 fL (9.4-12.4); Monocytes # 0.8 K/mcL (0.0-1.3); Monocytes % 9.5 %; Nucleated Red Blood Cells 0.8 /100 WBC (0); Platelet Count 159 K/mcL (140-400); Red Blood Count 3.85 M/mcL (4.19-5.50); Red Cell Distribution Width 12.7 % (11.5-14.5); Segmented Neutrophils % 70.3 %
[2017-11-21 18:41] LABS: Neutrophils # 6.1 K/mcL (1.6-8.9)
[2017-11-21 18:55] LABS: BUN/Creatinine Ratio 27 (6-26); Blood Urea Nitrogen 14 mg/dL (8-23); Calcium 9.5 mg/dL (8.6-10.3); Carbon Dioxide 34 mEq/L (23-29); Chloride 97 mEq/L (98-107); Glucose 109 mg/dL (70-105); Osmolality,Calculated 287 (280-300); Potassium 3.8 mEq/L (3.5-5.1); Sodium 138 mEq/L (136-145); Troponin I < 0.03 ng/mL (< 0.04); eGFR For African Americans > 60 (> 60); eGFR For Non-African Americans > 60 (> 60)
[2017-11-21 20:14] LABS: INR 1.1; Prothrombin Time 11.8 Seconds (9.4-12.1)
[2017-11-21 20:17] LABS: Activated Partial Thrombo Time 26.4 Seconds (26.0-36.0)
[2017-11-21] MEDS ORDERED: Albuterol 2.5 MG/3 ML NEBULIZER IH ONE (20:29)
--- NOTE | 2017-11-21 21:10 | Emergency Department Note ---
Disposition Clinical Impression: Acute exacerbation of chronic obstructive airways disease, Hypoxia, Shortness of breath Disposition: Admitted As Inpatient Condition: Fair Time of Disposition: 21:29 General Adult HPI - General Chief complaint: ED Shortness of Breath/Dyspnea Stated complaint: [place] Time Seen by Provider: 11/21/17 17:58 Source: EMS Mode of arrival: ambulatory Limitations: no limitations Nursing Notes Reviewed: Yes Vital Signs Reviewed: Yes - History of Present Illness HPI Narrative: Patient presents emergency room with complaint of shortness of breath. Patient was just discharged from pulmonary rehabilitation over the [facility]. He went home and smoke today and acutely went into COPD exacerbation again. He denies any chest pain headache vision changes nausea vomiting or diarrhea. 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 Pain Scale: 0 Consistency: constant Improves with: rest Worsens with: movement Associated symptoms: Reports: cough, shortness of breath Treatments Prior to Arrival: none - Related Data Home Medications Medication Instructions Recorded Confirmed Albuterol Sulfate [Ventolin Hfa] 2 puff IH Q6H PRN 07/07/17 08/23/17 Bisacodyl [Woman's Laxative] 10 mg PO DAILY PRN 07/07/17 08/23/17 Budesonide/Formoterol 160/4.5 2 puff IH BID 07/07/17 08/23/17 [Symbicort 160/4.5] Docusate [Colace] 100 mg PO BID 07/07/17 08/23/17 Omeprazole [PriLOSEC] 20 mg PO DAILY 07/07/17 08/23/17 Ondansetron HCl [Zofran] 4 mg PO TID PRN 07/07/17 08/23/17 Polyethylene Glycol 3350 [MiraLAX] 17 gm PO BID PRN 07/07/17 08/23/17 Sildenafil Citrate [Viagra] 50 mg PO AD PRN 07/07/17 08/23/17 Aspirin Enteric Coated [Aspirin EC] 81 mg PO DAILY 08/23/17 08/23/17 Oxygen 2.5 l .ROUTE AD 08/23/17 08/23/17 Previous Rx's Medication Instructions Recorded Ipratropium/Albuterol Neb [Duoneb] 3 ml IH Q6H PRN #30 inhsol 07/22/17 LORazepam [Ativan] 1 mg PO HS 3 Days #4 tablet 08/22/17 predniSONE [PredniSONE] 40 mg PO DAILY #5 tablet 08/22/17 predniSONE [PredniSONE] 40 mg PO DAILY #3 tablet 08/26/17 Allergies Allergy/AdvReac Type Severity Reaction Status Date / Time haloperidol [From Haldol] AdvReac Muscle Pain Verified 11/21/17 18:09 [place] AdvReac Weakness Verified 11/21/17 18:09 All systems ED: reviewed and negative except as stated. Review of Systems: As Per HPI Constitutional: Denies: fever, chills Cardiovascular: Denies: chest pain, palpitations, dyspnea on exertion Respiratory: Reports: cough, dyspnea, wheezes, sputum production. Denies: hemoptysis, stridor Gastrointestinal: Denies: abdominal pain, nausea, vomiting, diarrhea Genitourinary: Denies: dysuria, frequency Musculoskeletal: Denies: back pain, neck pain Past Medical History - Past Medical History Attestation: Yes The following information was validated with the patient. Source: patient Medical history: Reports: COPD, diabetes, hepatitis, other Surgical history: Reports: cholecystectomy Psychiatric history: Reports: anxiety, bipolar, depression, schizophrenia - Social History Smoking Status: Current every day smoker Smokeless Tobacco Status: No Alcohol use: Reports: none Drug use: Reports: other Physical Exam - General Limitations: no limitations General appearance: in distress - Neck Neck exam: Present: normal inspection, full ROM, trachea midline. Absent: tenderness, meningismus, lymphadenopathy - Chest Chest inspection: Present: normal inspection, symmetric chest wall rise. Absent : tenderness - Respiratory Respiratory exam: Present: respiratory distress, wheezes, accessory muscle use. Absent: stridor - Cardiovascular Cardiovascular exam: Present: normal rhythm, tachycardia, normal heart sounds - Abdominal Exam Abdominal exam: Present: soft, Non-Tender. Absent: tenderness, distention, guarding, rebound, rigidity - Extremities Exam Extremities exam: Present: normal inspection, full ROM, normal capillary refill. Absent: tenderness - Back Exam Back exam: Present: normal inspection, full ROM. Absent: tenderness - Neurological Exam Neurological exam: Present: alert, oriented X3, CN II-XII intact, normal gait - Skin Skin exam: Present: warm, dry, intact, normal color Course Course Narrative: Patient seen and examined the time of arrival. See history of present illness. 61-year-old male presents emergency room for evaluation of increased work of breathing shortness of breath and what he describes possible COPD exacerbation. Patient denies any productive cough. He has had a persistent cough but no productive sputum at this time. He does disclose that he went home and smoke today despite not smoking for over 2 months. He feels that this exacerbated his symptoms are again. Denies any chest pain fevers chills nausea vomiting or diarrhea. Denies any headache or vision change. Patient is otherwise stable but he does have diffuse wheezing on examination. His lungs are wheezing bilaterally. Patient does have some significant increased work of breathing. Chest x-ray EKG labs including CBC chemistry troponin and BNP will be ordered at this time. Patient has what appears to be a clinical COPD exacerbation. Symptom control. Patient treatments and steroids. Patient was provided with steroids and transfer by EMS with no repeat doses required at this time. Triple DuoNeb will be given here and then reevaluation to be established. Patient is otherwise stable requiring further management and evaluation.. - Reevaluation(s) Reevaluation #1: Patient responded to breathing treatments is resting comfortable in the bed. His heart rate is elevated most likely secondary to the medications. Chest x- ray does not show any signs of pneumonia labs are unremarkable troponin is negative. Patient is still symptomatic and hypoxic intermittently. Repeat doses of albuterol will be given here and admission will be completed. Patient does not require any antibiotics. He is offered to be transferred [facility]. Cholecystitis facility this time. Patient is clinically stable. He will require further evaluation and management and close observation. We will continue monitor here until admission process is completed. Hospitalist Dr. Goldsmith and I reviewed the presentation symptoms. Patient is otherwise in no distress. No other recommendations this time. Patient will be admitted for further management of COPD exacerbation. Time: 21:27 Vital Signs Temperature 98.8 F 11/21/17 18:00 Pulse Rate 121 11/21/17 18:00 Respiratory Rate 34 11/21/17 18:00 Blood Pressure 139/97 11/21/17 18:00 O2 Sat by Pulse Oximetry 97 11/21/17 18:00 Temperature 98.8 F 11/21/17 18:00 Pulse Rate 75 11/21/17 20:00 Respiratory Rate 18 11/21/17 20:00 Blood Pressure 119/80 11/21/17 20:00 O2 Sat by Pulse Oximetry 98 11/21/17 20:00 Oxygen Delivery Oxygen Delivery Nasal Cannula Medical Decision Making - MDM Narrative Medical decision making narrative: COPD exacerbation, increased work of breathing, hypoxia - Medical Records Medical records reviewed: Yes I reviewed the patient's medical records. - Lab Data Lab results reviewed: Yes I reviewed the patient's lab results. Result diagrams: 11/21/17 18:18 11/21/17 18:18 Lab Results 11/21/17 11/21/17 11/21/17 Range/Units 18:18 18:18 18:18 WBC 8.7 (4.3-11.1) K/mcL RBC 3.85 L (4.19-5.50) M/mcL Hgb 11.6 L (12.9-16.9) g/dL Hct 35.7 L (37.5-50.1) % MCV 92.7 (83.0-100.0) fL MCH 30.1 (28.0-33.3) pg MCHC 32.5 (31.6-35.5) g/dL RDW 12.7 (11.5-14.5) % Plt Count 159 (140-400) K/mcL MPV 10.7 (9.4-12.4) fL Immature Gran % 0.5 (0-4) % Seg Neutrophils % 70.3 % Lymphocytes % 18.8 % Monocytes % 9.5 % Eosinophils % 0.7 % Basophils % 0.2 % Neutrophils # 6.1 (1.6-8.9) K/mcL Lymphocytes # 1.6 (0.6-4.6) K/mcL Monocytes # 0.8 (0.0-1.3) K/mcL Eosinophils # 0.1 (0.0-0.6) K/mcL Basophils # 0.0 (0.0-0.2) K/mcL Nucleated RBCs/100 WBC 0.8 H (0) /100 WBC PT TNP INR TNP APTT TNP Heparin Anti-Xa, Unfract TNP Sodium 138 (136-145) mEq/L Potassium 3.8 (3.5-5.1) mEq/L Chloride 97 L (98-107) mEq/L Carbon Dioxide 34 H (23-29) mEq/L BUN 14 (8-23) mg/dL Creatinine 0.52 L (0.70-1.30) mg/dL Est GFR ( Amer) > 60 (> 60) Est GFR (Non-Af Amer) > 60 (> 60) BUN/Creatinine Ratio 27 H (6-26) Glucose 109 H (70-105) mg/dL Calculated Osmolality 287 (280-300) Lactic Acid (0.5-2.2) mmol/L Calcium 9.5 (8.6-10.3) mg/dL Troponin I < 0.03 (< 0.04) ng/mL B-Natriuretic Peptide (Less than 100) pg/mL 11/21/17 11/21/17 11/21/17 Range/Units 18:18 18:18 19:59 WBC (4.3-11.1) K/mcL RBC (4.19-5.50) M/mcL Hgb (12.9-16.9) g/dL Hct (37.5-50.1) % MCV (83.0-100.0) fL MCH (28.0-33.3) pg MCHC (31.6-35.5) g/dL RDW (11.5-14.5) % Plt Count (140-400) K/mcL MPV (9.4-12.4) fL Immature Gran % (0-4) % Seg Neutrophils % % Lymphocytes % % Monocytes % % Eosinophils % % Basophils % % Neutrophils # (1.6-8.9) K/mcL Lymphocytes # (0.6-4.6) K/mcL Monocytes # (0.0-1.3) K/mcL Eosinophils # (0.0-0.6) K/mcL Basophils # (0.0-0.2) K/mcL Nucleated RBCs/100 WBC (0) /100 WBC PT INR APTT Heparin Anti-Xa, Unfract Sodium (136-145) mEq/L Potassium (3.5-5.1) mEq/L Chloride (98-107) mEq/L Carbon Dioxide (23-29) mEq/L BUN (8-23) mg/dL Creatinine (0.70-1.30) mg/dL Est GFR ( Amer) (> 60) Est GFR (Non-Af Amer) (> 60) BUN/Creatinine Ratio (6-26) Glucose (70-105) mg/dL Calculated Osmolality (280-300) Lactic Acid 0.8 0.6 (0.5-2.2) mmol/L Calcium (8.6-10.3) mg/dL Troponin I (< 0.04) ng/mL B-Natriuretic Peptide 48 (Less than 100) pg/mL 11/21/17 Range/Units 19:59 WBC (4.3-11.1) K/mcL RBC (4.19-5.50) M/mcL Hgb (12.9-16.9) g/dL Hct (37.5-50.1) % MCV (83.0-100.0) fL MCH (28.0-33.3) pg MCHC (31.6-35.5) g/dL RDW (11.5-14.5) % Plt Count (140-400) K/mcL MPV (9.4-12.4) fL Immature Gran % (0-4) % Seg Neutrophils % % Lymphocytes % % Monocytes % % Eosinophils % % Basophils % % Neutrophils # (1.6-8.9) K/mcL Lymphocytes # (0.6-4.6) K/mcL Monocytes # (0.0-1.3) K/mcL Eosinophils # (0.0-0.6) K/mcL Basophils # (0.0-0.2) K/mcL Nucleated RBCs/100 WBC (0) /100 WBC PT 11.8 INR 1.1 APTT 26.4 Heparin Anti-Xa, Unfract Sodium (136-145) mEq/L Potassium (3.5-5.1) mEq/L Chloride (98-107) mEq/L Carbon Dioxide (23-29) mEq/L BUN (8-23) mg/dL Creatinine (0.70-1.30) mg/dL Est GFR ( Amer) (> 60) Est GFR (Non-Af Amer) (> 60) BUN/Creatinine Ratio (6-26) Glucose (70-105) mg/dL Calculated Osmolality (280-300) Lactic Acid (0.5-2.2) mmol/L Calcium (8.6-10.3) mg/dL Troponin I (< 0.04) ng/mL B-Natriuretic Peptide (Less than 100) pg/mL - Radiology Data Radiology results reviewed: Yes I reviewed the patient's radiology results. Chest x-ray is unremarkable for infection at this time. No other pathology. - EKG Data EKG #1 EKG attestation: Yes I reviewed and interpreted this EKG. EKG results narrative: EKG shows sinus rhythm. Tachycardia noted. No acute signs of ST segment elevation or abnormality. Ventricular rate of 119. [place] interval 165. QRS duration of 82. QTC of 363. No signs of ST segment elevation. Previous septal wall myocardial infarction is noted. Compared to EKG from previous that shows same presentation. This EKG is reviewed from 08/23/17. The WPW or Brugada syndrome.
[2017-11-22] MEDS ORDERED: Acetaminophen 325 MG TABLET PO PRN (01:43)
[2017-11-22] MEDS ORDERED: Naloxone 0.4 MG/ML INJ IVP PRN (01:43)
[2017-11-22] MEDS ORDERED: D5% in Water 1,000 ML IVC PRN (01:45)
[2017-11-22] MEDS ORDERED: *HR* Dextrose 50 % in Water (Syg) 50 ML SYRINGE IVP PRN (01:45)
[2017-11-22] MEDS ORDERED: Dextrose Gel 15 GM/37.5 ML TUBE PO PRN ×2 (01:45)
[2017-11-22] MEDS ORDERED: Ipratropium/Albuterol Neb 3 ML ONE (02:26)
[2017-11-22] MEDS: Ipratropium/Albuterol Neb 3 ML IH PRN ×3 (02:29→13:45)
--- NOTE | 2017-11-22 03:50 | Internal Med History&Physical ---
Date of Encounter: 11/22/17 Time of Encounter: 02:45 Internal Medicine - H&P: HPI Chief complaint: Shortness of breath Admitted From: Emergency Dept Plans for Post Hospital Care: Home History of present illness: Mr. Sosa is a 61 year old male with h/o- advanced COPD, who was recently discharged from Pulmonary rehab at [place], presents with complaints of shortness of breath. Patient reports that he underwent pulmonary rehabilitation for 2-1/2 months and then he went home and smoked, subsequently developed severe shortness of breath, chest tightness and wheezing along with dry cough, similar to his previous COPD exacerbations. No fever, chills, chest pain, leg swelling. Past Med Surg Social Fam HX - Past Medical History Source: patient Medical history: COPD, diabetes, hepatitis, other Psychiatric history: anxiety, bipolar, depression, schizophrenia - Past Surgical History Surgical History: cholecystectomy - Social History Smoking Status: Current every day smoker Packs per day: 1 Smokeless Tobacco Status: No Alcohol use: none Drug use: none Occupational status: disabled Current living situation: Home - Independent Activity Level: Independent ambulation Recent Out of Country Travel Within the Last 8 Weeks: No Exposure or Possible Exposure to Illness During Travel: No - Family History Mother Adopted: No Family Member Ethnicity: Non- Living Status: Hx Family Cardiac Disorders: Yes Hx Family Respiratory Disorders: Yes (dad emphezema) Hx Family Cancer: Yes (lung CA) Hx Family GI Disorders: No Hx Family Endocrine Disorder: Yes (DM) Hx Family Neuromuscular Disorders: No Hx Family Neurologic Disorders: No Hx Family HEENT Disorders: No Hx Family Autoimmune Disorders: No Father Adopted: No Family Member Ethnicity: Non- Living Status: Hx Family Cardiac Disorders: No Hx Family Respiratory Disorders: Yes Hx Family Cancer: Yes (Lung CA) Hx Family GI Disorders: No Hx Family Endocrine Disorder: No Hx Family Neuromuscular Disorders: No Hx Family Neurologic Disorders: No Hx Family HEENT Disorders: No Hx Family Autoimmune Disorders: No Brother Family Member Ethnicity: Non- Living Status: Still Living Hx Family Respiratory Disorders: Yes (Emphysema) Sister Family Member Ethnicity: Non- Living Status: Still Living Internal Medicine - H&P: Meds Albuterol Sulfate [Ventolin Hfa] 2 puff IH Q6H PRN 07/07/17 [History] Bisacodyl [Woman's Laxative] 10 mg PO DAILY PRN 07/07/17 [History] Budesonide/Formoterol 160/4.5 [Symbicort 160/4.5] 2 puff IH BID 07/07/17 [ History] Docusate [Colace] 100 mg PO BID 07/07/17 [History] Omeprazole [PriLOSEC] 20 mg PO DAILY 07/07/17 [History] Ondansetron HCl [Zofran] 4 mg PO TID PRN 07/07/17 [History] Polyethylene Glycol 3350 [MiraLAX] 17 gm PO BID PRN 07/07/17 [History] Sildenafil Citrate [Viagra] 50 mg PO AD PRN 07/07/17 [History] Ipratropium/Albuterol Neb [Duoneb] 3 ml IH Q6H PRN #30 inhsol 07/22/17 [Rx] LORazepam [Ativan] 1 mg PO HS 3 Days #4 tablet 08/22/17 [Rx] predniSONE [PredniSONE] 40 mg PO DAILY #5 tablet 08/22/17 [Rx] Aspirin Enteric Coated [Aspirin EC] 81 mg PO DAILY 08/23/17 [History] Oxygen 2.5 l .ROUTE AD 08/23/17 [History] predniSONE [PredniSONE] 40 mg PO DAILY #3 tablet 08/26/17 [Rx] 3 Allergy/AdvReac Type Severity Reaction Status Date / Time haloperidol [From Haldol] AdvReac Muscle Pain Verified 11/21/17 18:09 [place] AdvReac Weakness Verified 11/21/17 18:09 All Systems PM: A 10-system review of systems was performed and is negative for pertinent findings except as documented above in the HPI. - Constitutional Constitutional: no chills, no fever(s), no night sweats - EENT Eyes: no change in vision, no discharge, no pain, no photophobia Ears: no ear discharge, no ear pain, no tinnitus Nose, mouth and throat: no dysphagia, no nasal discharge, no neck pain, no sore throat - Cardiovascular Cardiovascular ROS IM: no chest pain, no diaphoresis, no dyspnea, no lightheadedness, no palpitations, no syncope - Respiratory Respiratory: cough, dyspnea, dyspnea on exertion, wheezing, chest congestion - Gastrointestinal Gastrointestinal: no abdominal pain, no diarrhea, no hematemesis, no hematochezia, no melena, no nausea, no vomiting - Musculoskeletal Musculoskeletal ROS IM: no numbness, no tingling - Integumentary Integumentary IM: no rash, no unusual bruising - Neurological Neurological ROS: no confusion, no convulsions, no focal weakness, no numbness, no tingling, no tremor(s) - Hematologic/Lymphatic Hematologic/Lymphatic: no easy bruising - Constitutional Vitals: Temp Pulse Resp BP Pulse Ox 98.1 F 92 18 120/75 99 11/22/17 03:44 11/22/17 03:44 11/22/17 03:44 11/22/17 03:44 11/22/17 03:44 General appearance: Present: mild distress (tripoding and requesting for breathing treatment, but able to answer questions), A&O X 3, answers questions appropriately - Respiratory Respiratory exam: Present: decreased breath sounds (on the right), CTAB, wheezes (slight wheezing at left base). Absent: accessory muscle use, rales, rhonchi - Cardiovascular Cardiovascular exam: Present: RRR, +S1, +S2. Absent: diastolic murmur, gallop, rubs, systolic murmur - GI/Abdominal GI/Abdominal exam: Present: normal bowel sounds, soft, no peritoneal signs. Absent: distended, tenderness - Extremities Exam Extremities exam: Present: warm, radial pulses palpable and symmetrical. Absent : calf tenderness, cyanotic, pedal edema - Neurological Exam Neurological exam: Present: CN II-XII intact, oriented X3, no focal deficits. Absent: pronater drift, facial droop, speech deficit - Skin Skin exam: Present: dry, intact Internal Med - H&P Results - Labs CBC & Chem 7: 11/22/17 04:04 11/22/17 04:04 - Assessment and plan (1) Acute exacerbation of chronic obstructive airways disease Current Visit: Yes Status: Acute Assessment and plan: Due to resuming smoking. Continue breathing treatments, IV steroids, supplemental oxygen with when necessary BiPAP support. Patient reports being on 2 L/m supplemental oxygen at home; wean down FiO2 as tolerated; CODE STATUS discussed with patient, he confirmed DNR comfort care. (2) Diabetes mellitus Current Visit: Yes Status: Chronic Assessment and plan: At risk for steroid-induced hyperglycemia. Accu-Chek blood glucose monitoring with sliding scale insulin. Diabetic diet. Qualifiers: Diabetes mellitus type: type 2 Diabetes mellitus detention insulin use: without emt intermediate use Diabetes mellitus complication status: with hyperglycemia Qualified Code(s): E11.65 - Type 2 diabetes mellitus with hyperglycemia (3) Constipation Current Visit: Yes Status: Chronic Qualifiers: Constipation type: slow transit constipation Qualified Code(s): K59.01 - Slow transit constipation (4) Schizoaffective disorder, bipolar type Current Visit: Yes Status: Chronic (5) Tobacco abuse Current Visit: Yes Status: Chronic Assessment and plan: Nicotine transdermal patch. - Time Spent With Patient Total time spent is greater than 50% in coordination of care (as documented) at patient's floor/unit and/or counseling patient:
[2017-11-22] MEDS: *HR* LORazepam 1 MG TABLET PO SCH ×2 (04:05→20:22)
[2017-11-22] MEDS: Levalbuterol Neb 1.25 MG/3 ML IH SCH ×4 (04:35→21:09)
[2017-11-22] MEDS: Ipratropium Neb 0.5 MG NEBULIZER IH SCH ×4 (04:35→21:09)
[2017-11-22 04:55] LABS: Hematocrit 33.9 % (37.5-50.1); Hemoglobin 10.9 g/dL (12.9-16.9); Immature Granulocytes % 0.8 % (0-4); Immature Platelets 2.6 % (1.1-6.1); Lymphocytes # 0.7 K/mcL (0.6-4.6); Lymphocytes % 11.3 %; Mean Corpuscular HGB Conc 32.2 g/dL (31.6-35.5); Mean Corpuscular Volume 93.4 fL (83.0-100.0); Mean Platelet Volume 10.2 fL (9.4-12.4); Monocytes # 0.2 K/mcL (0.0-1.3); Platelet Count 180 K/mcL (140-400); Red Blood Count 3.63 M/mcL (4.19-5.50); Red Cell Distribution Width 12.3 % (11.5-14.5); Segmented Neutrophils % 83.9 %
[2017-11-22 05:14] LABS: BUN/Creatinine Ratio 36 (6-26); Blood Urea Nitrogen 17 mg/dL (8-23); Calcium 9.4 mg/dL (8.6-10.3); Carbon Dioxide 37 mEq/L (23-29); Chloride 97 mEq/L (98-107); Glucose 139 mg/dL (70-105); Osmolality,Calculated 290 (280-300); Potassium 4.4 mEq/L (3.5-5.1); Sodium 138 mEq/L (136-145); eGFR For African Americans > 60 (> 60); eGFR For Non-African Americans > 60 (> 60)
[2017-11-22] MEDS: *HR* Heparin 5,000 UNIT/ML VIAL SQ SCH ×3 (07:28→20:22)
[2017-11-22] MEDS: Insulin LISPRO 300 UNITS/3 ML VIAL SQ SCH ×4 (07:30→20:23)
[2017-11-22] MEDS: Nicotine 21 MG PATCH.TD24 TD SCH (07:35)
[2017-11-22] MEDS: MethylPREDNISolone 40 MG/ML VIAL IVP SCH ×2 (07:35→15:32)
[2017-11-22] MEDS: Aspirin Enteric Coated 81 MG Tablet PO SCH (07:36)
[2017-11-22] MEDS: Budesonide/Formoterol 160/4.5 MDI IH SCH ×2 (09:45→21:08)
--- NOTE | 2017-11-22 10:45 | Internal Med Progress Note ---
Date of Encounter: 11/22/17 Time of Encounter: 09:15 - Assessment and plan (1) Acute exacerbation of chronic obstructive airways disease Current Visit: Yes Status: Acute Assessment and plan: Not improving cont high dose IV steroids since he still has resp distress and wheezing Cont Duoneb IRIS started him on empirical abx Levaquin as prophylactic Discussed about code status with pt, he still insists on DNR DNI (2) Tobacco abuse Current Visit: Yes Status: Chronic Assessment and plan: Counseled to quit Nicotine transdermal patch. (3) Schizoaffective disorder, bipolar type Current Visit: Yes Status: Chronic (4) Diabetes mellitus Current Visit: Yes Status: Chronic Assessment and plan: cont ISS Qualifiers: Diabetes mellitus type: type 2 Diabetes mellitus fdc insulin use: without termination clerk use Diabetes mellitus complication status: with hyperglycemia Qualified Code(s): E11.65 - Type 2 diabetes mellitus with hyperglycemia (5) Constipation Current Visit: Yes Status: Chronic Assessment and plan: started on bowel regimen Qualifiers: Constipation type: slow transit constipation Qualified Code(s): K59.01 - Slow transit constipation - Time Spent With Patient Total time spent is greater than 50% in coordination of care (as documented) at patient's floor/unit and/or counseling patient: - Subjective Interval history: Mr. Sosa is a 61 year old male with h/o- advanced COPD, who was recently discharged from Pulmonary rehab at [place], presents with complaints of shortness of breath. Patient reports that he underwent pulmonary rehabilitation for 2-1/2 months and then he went home and smoked, subsequently developed severe shortness of breath, chest tightness and wheezing along with dry cough, similar to his previous COPD exacerbations. Pt still c.o severe SOB and CALDERÓN. Denied any CP. - Constitutional Vitals: Temp Pulse Resp BP Pulse Ox 98.5 F 100 18 117/74 99 11/22/17 06:47 11/22/17 06:47 11/22/17 09:49 11/22/17 06:47 11/22/17 09:49 General appearance: Present: mild distress (tripoding and requesting for breathing treatment, but able to answer questions), A&O X 3, answers questions appropriately - Head Head exam: Present: atraumatic, normal inspection - Neck Neck exam general surgery: Present: supple - Respiratory Respiratory exam: Present: decreased breath sounds, respiratory distress, wheezes (moderate to severe), tachypnea. Absent: rales, rhonchi - Cardiovascular Cardiovascular exam: Present: RRR, +S1, +S2. Absent: tachycardia - GI/Abdominal GI/Abdominal exam: Present: normal bowel sounds, soft. Absent: rebound, rigid, tenderness - Extremities Exam Extremities exam: Absent: calf tenderness, pedal edema, tenderness - Back Exam Back exam: Absent: CVA tenderness (L), CVA tenderness (R) - Neurological Exam Neurological exam: Present: alert, oriented X3 - Psychiatric Psychiatric exam: Present: anxious - Skin Skin exam: Absent: rash Internal Medicine: Result - Labs CBC & Chem 7: 11/22/17 04:04 11/22/17 04:04 Labs: Short CBC 11/22/17 Range/Units 04:04 WBC 6.0 (4.3-11.1) K/mcL Hgb 10.9 L (12.9-16.9) g/dL Hct 33.9 L (37.5-50.1) % Plt Count 180 (140-400) K/mcL Neutrophils # 5.0 (1.6-8.9) K/mcL BMP 11/22/17 04:04 Sodium 138 Potassium 4.4 Chloride 97 L Carbon Dioxide 37 H BUN 17 Creatinine 0.47 L Glucose 139 H Calcium 9.4 - ABG Interpretation ABG results: PT/INR, D-dimer PT 11.8 Seconds (9.4-12.1) 11/21/17 19:59 Consult Discharge Plan - Plan [facility]errals: [facility] [Primary Care Provider] -
[2017-11-22] MEDS: Levofloxacin 750 MG/150 ML 750 MG/150 ML BAG IVPB SCH (11:15)
[2017-11-22] MEDS ORDERED: (Melatonin/Pyridoxine Hcl (B6) [Melatonin 3 Mg Tablet) PO PRN (15:04)
[2017-11-22] MEDS: *HR* LORazepam 0.5 MG TABLET PO PRN (15:32)
[2017-11-22] MEDS: traZODone 50 MG TABLET PO SCH (20:22)
[2017-11-23] MEDS: Ipratropium Neb 0.5 MG NEBULIZER IH SCH ×4 (04:27→21:31)
[2017-11-23] MEDS: Levalbuterol Neb 1.25 MG/3 ML IH SCH ×4 (04:27→21:31)
[2017-11-23] MEDS: *HR* Heparin 5,000 UNIT/ML VIAL SQ SCH ×3 (05:25→21:45)
[2017-11-23] MEDS: Aspirin Enteric Coated 81 MG Tablet PO SCH (08:37)
[2017-11-23] MEDS: Levofloxacin 750 MG/150 ML 750 MG/150 ML BAG IVPB SCH (08:37)
[2017-11-23] MEDS: Nicotine 21 MG PATCH.TD24 TD SCH (08:37)
[2017-11-23] MEDS: Insulin LISPRO 300 UNITS/3 ML VIAL SQ SCH ×4 (08:38→21:49)
[2017-11-23] MEDS: MethylPREDNISolone 40 MG/ML VIAL IVP SCH ×2 (08:38→16:57)
[2017-11-23] MEDS: *HR* LORazepam 0.5 MG TABLET PO PRN ×2 (08:40→14:51)
[2017-11-23] MEDS: Budesonide/Formoterol 160/4.5 MDI IH SCH ×2 (09:36→21:30)
--- NOTE | 2017-11-23 11:06 | Internal Med Progress Note ---
Date of Encounter: 11/23/17 Time of Encounter: 09:00 - Assessment and plan (1) Acute exacerbation of chronic obstructive airways disease Current Visit: Yes Status: Acute Assessment and plan: Improving slowly Cont Roby SIMMONS started trending down on steroids Cont him on empirical abx Levaquin as prophylactic Discussed about code status with pt, he still insists on DNR DNI (2) Tobacco abuse Current Visit: Yes Status: Chronic Assessment and plan: Counseled to quit Nicotine transdermal patch. (3) Schizoaffective disorder, bipolar type Current Visit: Yes Status: Chronic (4) Diabetes mellitus Current Visit: Yes Status: Chronic Assessment and plan: cont ISS Qualifiers: Diabetes mellitus type: type 2 Diabetes mellitus usp insulin use: without keno terminal operator use Diabetes mellitus complication status: with hyperglycemia Qualified Code(s): E11.65 - Type 2 diabetes mellitus with hyperglycemia (5) Constipation Current Visit: Yes Status: Chronic Assessment and plan: started on bowel regimen Qualifiers: Constipation type: slow transit constipation Qualified Code(s): K59.01 - Slow transit constipation - Time Spent With Patient Total time spent is greater than 50% in coordination of care (as documented) at patient's floor/unit and/or counseling patient: - Subjective Interval history: Mr. Sosa is a 61 year old male with h/o- advanced COPD, who was recently discharged from Pulmonary rehab at [place], presents with complaints of shortness of breath. Patient reports that he underwent pulmonary rehabilitation for 2-1/2 months and then he went home and smoked, subsequently developed severe shortness of breath, chest tightness and wheezing along with dry cough, similar to his previous COPD exacerbations. Pt was admitted here and started him on high dose IV steroids. Today he feels little better. Still has moderate SOB and CALDERÓN. Denied any CP - Constitutional Vitals: Temp Pulse Resp BP Pulse Ox 98.2 F 97 19 111/73 100 11/23/17 07:48 11/23/17 07:48 11/23/17 10:10 11/23/17 07:48 11/23/17 10:10 General appearance: Present: cooperative, A&O X 3, answers questions appropriately - Head Head exam: Present: atraumatic, normal inspection - Neck Neck exam general surgery: Present: supple - Respiratory Respiratory exam: Present: decreased breath sounds, wheezes (improving.. Moderate wheezing now). Absent: rales, respiratory distress, rhonchi - Cardiovascular Cardiovascular exam: Present: RRR, +S1, +S2. Absent: tachycardia - GI/Abdominal GI/Abdominal exam: Present: soft. Absent: mass, rigid, tenderness - Extremities Exam Extremities exam: Absent: calf tenderness, pedal edema, tenderness - Back Exam Back exam: Absent: CVA tenderness (L), CVA tenderness (R) - Neurological Exam Neurological exam: Present: alert, oriented X3 - Psychiatric Psychiatric exam: Present: anxious Internal Medicine: Result - Labs CBC & Chem 7: 11/22/17 04:04 11/22/17 04:04 - ABG Interpretation ABG results: PT/INR, D-dimer PT 11.8 Seconds (9.4-12.1) 11/21/17 19:59 Consult Discharge Plan - Plan [facility]errals: [facility] [Primary Care Provider] -
[2017-11-23] MEDS ORDERED: Pyridoxine (B-6) 50 MG TABLET PO PRN (11:24)
[2017-11-23] MEDS ORDERED: *HR* LORazepam 0.5 MG TABLET PO ONE (11:35)
[2017-11-23] MEDS ORDERED: Melatonin 3 MG TABLET PO PRN (21:00)
[2017-11-23] MEDS: traZODone 50 MG TABLET PO SCH (21:44)
[2017-11-23] MEDS: *HR* LORazepam 1 MG TABLET PO SCH (21:45)
[2017-11-24] MEDS: Levalbuterol Neb 1.25 MG/3 ML IH SCH ×2 (04:34→10:43)
[2017-11-24] MEDS: Ipratropium Neb 0.5 MG NEBULIZER IH SCH ×2 (04:34→10:43)
[2017-11-24] MEDS: Ipratropium/Albuterol Neb 3 ML IH PRN (06:05)
[2017-11-24] MEDS: MethylPREDNISolone 40 MG/ML VIAL IVP SCH (06:28)
[2017-11-24] MEDS: *HR* Heparin 5,000 UNIT/ML VIAL SQ SCH (06:28)
[2017-11-24] MEDS: *HR* LORazepam 0.5 MG TABLET PO PRN ×2 (06:37→11:54)
[2017-11-24] MEDS: Insulin LISPRO 300 UNITS/3 ML VIAL SQ SCH ×2 (08:11→11:49)
[2017-11-24] MEDS: Aspirin Enteric Coated 81 MG Tablet PO SCH (09:02)
[2017-11-24] MEDS: Levofloxacin 750 MG/150 ML 750 MG/150 ML BAG IVPB SCH (09:02)
[2017-11-24] MEDS: Nicotine 21 MG PATCH.TD24 TD SCH (09:03)
[2017-11-24] MEDS: Budesonide/Formoterol 160/4.5 MDI IH SCH (10:43)
[2017-11-24 11:29] VITALS: BP 106/70
--- NOTE | 2017-11-24 11:39 | Discharge Summary ---
- NOTES TO OUTPATIENT PROVIDER Notes to Outpatient Provider: f/u with PCP in on week. Please quit smoking. Please take tapering dose of steroids then continue home dose Date of Encounter: 11/24/17 Time of Encounter: 11:37 - Discharge Diagnosis (1) Acute exacerbation of chronic obstructive airways disease Priority: Primary Status: Acute (2) Tobacco abuse Priority: Primary Status: Chronic (3) Schizoaffective disorder, bipolar type Priority: Secondary Status: Chronic (4) Diabetes mellitus Priority: Secondary Status: Chronic Qualifiers: Diabetes mellitus type: type 2 Diabetes mellitus railroad watchman insulin use: without railroad watchman use Diabetes mellitus complication status: with hyperglycemia Qualified Code(s): E11.65 - Type 2 diabetes mellitus with hyperglycemia (5) Constipation Priority: Secondary Status: Chronic Qualifiers: Constipation type: slow transit constipation Qualified Code(s): K59.01 - Slow transit constipation Hospital course: Mr. Sosa is a 61 year old male with h/o- advanced COPD, who was recently discharged from Pulmonary rehab at [place], presents with complaints of shortness of breath. Patient reports that he underwent pulmonary rehabilitation for 2-1/2 months and then he went home and smoked, subsequently developed severe shortness of breath, chest tightness and wheezing along with dry cough, similar to his previous COPD exacerbations. Pt was admitted here and started him on high dose IV steroids and prophylactic abx. His symptoms started improving slowly. Pt stated today he is back to baseline and wants to go home. So will d/c him home in stable condition with tapering steroids and duonebs. Counseled the pt to quit smoking and recommend continue to use nicotine patches. - Time Spent with Patient Total time spent providing and/or coordinating discharge services: - Discharge Medications Prescriptions: levoFLOXacin [Levaquin] 750 mg PO DAILY #2 tablet Metoprolol XL (24 HR) Succ [Toprol Xl] 12.5 mg PO DAILY #30 tab.er.24h predniSONE [PredniSONE] 40 mg PO DAILY #10 tablet Home Medications: Albuterol Sulfate [Ventolin Hfa] 2 puff IH Q6H PRN 07/07/17 [History] Bisacodyl [Woman's Laxative] 10 mg PO DAILY PRN 07/07/17 [History] Budesonide/Formoterol 160/4.5 [Symbicort 160/4.5] 2 puff IH BID 07/07/17 [ History] Docusate [Colace] 100 mg PO BID 07/07/17 [History] Omeprazole [PriLOSEC] 20 mg PO DAILY 07/07/17 [History] Ondansetron HCl [Zofran] 4 mg PO TID PRN 07/07/17 [History] Polyethylene Glycol 3350 [MiraLAX] 17 gm PO BID PRN 07/07/17 [History] Sildenafil Citrate [Viagra] 50 mg PO AD PRN 07/07/17 [History] Ipratropium/Albuterol Neb [Duoneb] 3 ml IH Q6H PRN #30 inhsol 07/22/17 [Rx] LORazepam [Ativan] 1 mg PO HS 3 Days #4 tablet 08/22/17 [Rx] Aspirin Enteric Coated [Aspirin EC] 81 mg PO DAILY 08/23/17 [History] Oxygen 2.5 l .ROUTE AD 08/23/17 [History] Acetaminophen [Tylenol Arthritis] 650 mg PO Q6H PRN 11/22/17 [History] LORazepam [Ativan] 0.5 mg PO BID 11/22/17 [History] Melatonin/Pyridoxine HCl (B6) [Melatonin 3 mg Tablet] 6 mg PO HS PRN 11/22/17 [ History] OLANZapine [Zyprexa] 5 mg PO QAM 11/22/17 [History] OLANZapine [Zyprexa] 10 mg PO HS 11/22/17 [History] PredniSONE [Marifer] 2.5 mg PO DAILY 11/22/17 [History] metFORMIN [Glucophage] 500 mg PO BID 11/22/17 [History] traZODone [TraZODone] 50 mg PO TID 11/22/17 [History] Metoprolol XL (24 HR) Succ [Toprol Xl] 12.5 mg PO DAILY #30 tab.er.24h 11/24/17 [Rx] Nicotine Patch [Nicoderm] 21 mg TD DAILY patch.td24 11/24/17 [Rx] levoFLOXacin [Levaquin] 750 mg PO DAILY #2 tablet 11/24/17 [Rx] predniSONE [PredniSONE] 40 mg PO DAILY #10 tablet 11/24/17 [Rx] Allergies/Adverse Reactions: 3 Allergy/AdvReac Type Severity Reaction Status Date / Time haloperidol [From Haldol] AdvReac Muscle Pain Verified 11/21/17 18:09 [facility] AdvReac Weakness Verified 11/21/17 18:09 Date of admission: 11/22/17 01:43 Primary care physician: PCP [facility] - Constitutional Vitals: Temp Pulse Resp BP Pulse Ox 98.4 F 106 16 106/70 96 11/24/17 11:24 11/24/17 11:24 11/24/17 11:24 11/24/17 11:24 11/24/17 11:24 General appearance: Present: cooperative, A&O X 3, answers questions appropriately - Head Head exam: Present: atraumatic, normal inspection - Neck Neck exam general surgery: Present: supple - Respiratory Respiratory exam: Present: decreased breath sounds, wheezes (mild). Absent: respiratory distress, rhonchi - Cardiovascular Cardiovascular exam: Present: RRR, +S1, +S2. Absent: tachycardia - Extremities Exam Extremities exam: Absent: calf tenderness, pedal edema, tenderness - Neurological Exam Neurological exam: Present: alert, oriented X3 - Patient Status Disposition: Home, Self-Care Condition: Good Overall status at discharge: patient is back to baseline - Discharge Instructions Instructions: Prednisone (By mouth), Levofloxacin (By mouth), Chronic Obstructive Pulmonary Disease ([place]) [facility]: [facility] [[facility] Care Provider[facility] - - Diet and Activity Activity: increase activity as tolerated, wear oxygen at all times Diet: low salt diet
[2017-11-24] MEDS ORDERED: predniSONE 20 MG TABLET PO SCH (18:00)
[2017-11-25] MEDS ORDERED: Metoprolol XL (24 HR) Succ 25 MG TAB.ER.24H PO SCH (09:00)
[2017-11-25] MEDS ORDERED: levoFLOXacin 750 MG TABLET PO SCH (09:00)
--- NOTE | 2017-11-25 15:31 | Electrocardiograph Report ---
[place] [id number] Test Date: 2017-11-21 Pat Name: Pa oSsa Department: 104 Room: 2A38 Gender: M Java Designer: TMBassem : 1955 Requested By: Emery Villasenor Order Number: [id number] Reading MD: Jose Antonio aPrkinson Measurements Intervals [place] Rate: 119 P: 87 CO: 165 QRS: 73 QRSD: 82 T: 72 QT: 292 QTc: 363 Interpretive Statements SINUS TACHYCARDIA SEPTAL MYOCARDIAL INFARCTION [40+ ms Q WAVE IN V1/V2], PROBABLY OLD Electronically Signed On 11-25-2017 15:29:49 EDT by Jose Antonio Parkinson
== END 2017-11-24 13:52 | disposition home or self-care (01) | DRG 192 ==
LOC: 2ANU 17:57 → EMEROO 17:57 → 2ANU 22:01
PROVIDERS: ADMIT Internal Medicine; ATTEND Internal Medicine

== ENCOUNTER 2017-11-26 13:55 | Inpatient (IN) ==
[2017-11-26] MEDS ORDERED: Ipratropium/Albuterol Neb 3 ML IH ONE (14:30)
[2017-11-26 14:57] LABS: Basophils % 0.1 %; Eosinophils # 0.1 K/mcL (0.0-0.6); Eosinophils % 0.5 %; Hematocrit 37.5 % (37.5-50.1); Immature Granulocytes % 0.6 % (0-4); Lymphocytes # 1.4 K/mcL (0.6-4.6); Lymphocytes % 13.3 %; Mean Corpuscular HGB Conc 34.1 g/dL (31.6-35.5); Mean Corpuscular Hemoglobin 31.2 pg (28.0-33.3); Mean Corpuscular Volume 91.5 fL (83.0-100.0); Mean Platelet Volume 9.5 fL (9.4-12.4); Monocytes # 0.9 K/mcL (0.0-1.3); Monocytes % 8.7 %; Neutrophils # 7.8 K/mcL (1.6-8.9); Platelet Count 203 K/mcL (140-400); Red Cell Distribution Width 12.4 % (11.5-14.5); Segmented Neutrophils % 76.8 %
[2017-11-26 15:05] LABS: Hemoglobin 12.8 g/dL (12.9-16.9)
[2017-11-26 15:23] LABS: BUN/Creatinine Ratio 63 (6-26); Blood Urea Nitrogen 34 mg/dL (8-23); Calcium 9.2 mg/dL (8.6-10.3); Carbon Dioxide 36 mEq/L (23-29); Chloride 95 mEq/L (98-107); Glucose 105 mg/dL (70-105); Osmolality,Calculated 294 (280-300); Potassium 3.7 mEq/L (3.5-5.1); Sodium 138 mEq/L (136-145); Troponin I < 0.03 ng/mL (< 0.04); eGFR For African Americans > 60 (> 60); eGFR For Non-African Americans > 60 (> 60)
--- NOTE | 2017-11-26 16:25 | Emergency Department Note ---
Disposition Clinical Impression: COPD exacerbation Disposition: Admitted As Inpatient Condition: Good [facility]: [facility]Primary Care Provider[facility] - SOB HPI - General Chief Complaint: ED Shortness of Breath/Dyspnea Stated Complaint: resp distress Time Seen by Provider: 11/26/17 14:24 Source: patient Mode of arrival: EMS Limitations: no limitations Nursing Notes Reviewed: Yes Vital Signs Reviewed: Yes - History of Present Illness 62-year-old male history of oxygen-dependent COPD 3 L continuously who presents to the ER via EMS due to shortness of breath. Patient states his foot unwell for the last few days. He has had shortness of breath at home using his DuoNeb treatments without improvement. No fever cough nausea vomiting or chest pain. EMS reports he was in the high 70s to low 80s upon arrival. He was given a DuoNeb treatment and Solu-Medrol before he arrived. Reports he feels much better upon arrival. No recent illnesses. No other complaints. Pt Subjective Complaint: shortness of breath Onset (ago): day(s) Context: recent illness Severity: moderate Consistency/Duration: constant Improves with: nothing Worsens with: nothing Known history of: COPD Associated symptoms: Reports: denies other symptoms Treatment prior to arrival: oxygen, bronchodilator Cough present: No Sputum production: No - Related Data Home oxygen amount: 3 liters Home Medications Medication Instructions Recorded Confirmed Albuterol Sulfate [Ventolin Hfa] 2 puff IH Q6H PRN 07/07/17 11/26/17 Bisacodyl [Woman's Laxative] 10 mg PO DAILY PRN 07/07/17 11/26/17 Budesonide/Formoterol 160/4.5 2 puff IH BID 07/07/17 11/26/17 [Symbicort 160/4.5] Docusate [Colace] 100 mg PO BID 07/07/17 11/26/17 Omeprazole [PriLOSEC] 20 mg PO DAILY 07/07/17 11/26/17 Ondansetron HCl [Zofran] 4 mg PO TID PRN 07/07/17 11/26/17 Polyethylene Glycol 3350 [MiraLAX] 17 gm PO BID PRN 07/07/17 11/26/17 Sildenafil Citrate [Viagra] 50 mg PO AD PRN 07/07/17 11/26/17 Aspirin Enteric Coated [Aspirin EC] 81 mg PO DAILY 08/23/17 11/26/17 Oxygen 2.5 l .ROUTE AD 08/23/17 11/26/17 Acetaminophen [Tylenol Arthritis] 650 mg PO Q6H PRN 11/22/17 11/26/17 LORazepam [Ativan] 0.5 mg PO BID 11/22/17 11/26/17 Melatonin/Pyridoxine HCl (B6) 6 mg PO HS PRN 11/22/17 11/26/17 [Melatonin 3 mg Tablet] OLANZapine [Zyprexa] 5 mg PO QAM 11/22/17 11/26/17 OLANZapine [Zyprexa] 10 mg PO HS 11/22/17 11/26/17 PredniSONE [Marifer] 2.5 mg PO DAILY 11/22/17 11/26/17 metFORMIN [Glucophage] 500 mg PO BID 11/22/17 11/26/17 traZODone [TraZODone] 50 mg PO TID 11/22/17 11/26/17 Previous Rx's Medication Instructions Recorded Ipratropium/Albuterol Neb [Duoneb] 3 ml IH Q6H PRN #30 inhsol 07/22/17 LORazepam [Ativan] 1 mg PO HS 3 Days #4 tablet 08/22/17 Metoprolol XL (24 HR) Succ [Toprol 12.5 mg PO DAILY #30 tab.er.24h 11/24/17 Xl] Nicotine Patch [Nicoderm] 21 mg TD DAILY patch.td24 11/24/17 levoFLOXacin [Levaquin] 750 mg PO DAILY #2 tablet 11/24/17 predniSONE [PredniSONE] 40 mg PO DAILY #10 tablet 11/24/17 Allergies Allergy/AdvReac Type Severity Reaction Status Date / Time haloperidol [From Haldol] AdvReac Muscle Pain Verified 11/21/17 18:09 [place] AdvReac Weakness Verified 11/21/17 18:09 All systems ED: reviewed and negative except as stated. Constitutional: Denies: fever Cardiovascular: Denies: chest pain Respiratory: Reports: dyspnea, wheezes. Denies: cough Gastrointestinal: Denies: abdominal pain, nausea, vomiting Past Medical History - Past Medical History Attestation: Yes The following information was validated with the patient. Source: patient Medical history: Reports: COPD, diabetes, hepatitis, other Surgical history: Reports: cholecystectomy Psychiatric history: Reports: anxiety, bipolar, depression, schizophrenia - Social History Smoking Status: Current every day smoker Smokeless Tobacco Status: No Alcohol use: Reports: none Drug use: Reports: none Physical Exam - General Limitations: no limitations General appearance: alert, in no apparent distress - Head Head exam: atraumatic, normocephalic - Eye Eye exam: Present: normal appearance - ENT ENT exam: normal exam - Neck Neck exam: Present: normal inspection - Chest Chest inspection: Present: normal inspection, symmetric chest wall rise - Respiratory Respiratory exam: Present: wheezes (There are diminished breath sounds bilaterally with end expiratory wheezing left greater than right.) - Cardiovascular Cardiovascular exam: Present: regular rate, normal rhythm, normal heart sounds - Abdominal Exam Abdominal exam: Present: soft, Non-Tender. Absent: tenderness - Extremities Exam Extremities exam: Present: normal inspection, full ROM - Expanded Upper Extremity Exam Shoulder exam: Present: normal inspection, full ROM Arm exam: Present: normal inspection, full ROM Elbow exam: Present: normal inspection, full ROM Forearm/Wrist exam: Present: normal inspection, full ROM Hand exam: Present: normal inspection, full ROM - Expanded Lower Extremity Exam Hip/Pelvis exam: Present: normal inspection, full ROM Upper leg exam: Present: normal inspection, full ROM Knee exam: Present: normal inspection, full ROM Lower leg exam: Present: normal inspection, full ROM Ankle exam: Present: normal inspection, full ROM Foot/toe exam: Present: normal inspection, full ROM - Skin Skin exam: Present: warm, dry Course Course Narrative: Patient seen and examined at time of arrival. Appears much better as per EMS after his DuoNeb treatment. 99% on 5 L nasal cannula. We will add additional DuoNeb treatments, EKG, chest x-ray, labs including troponin. He is agreeable with being admitted to the hospital. Vital Signs Temperature 98.2 F 11/26/17 14:05 Pulse Rate 98 11/26/17 14:05 Respiratory Rate 24 11/26/17 14:05 Blood Pressure 105/78 11/26/17 14:05 O2 Sat by Pulse Oximetry 100 11/26/17 14:05 Temperature 98.2 F 11/26/17 14:05 Pulse Rate 99 11/26/17 14:58 Respiratory Rate 20 11/26/17 14:58 Blood Pressure 106/55 11/26/17 14:58 O2 Sat by Pulse Oximetry 100 11/26/17 14:58 Oxygen Delivery Oxygen Delivery Room Air Shortness of Breath/Dyspnea - MDM Narrative Medical decision making narrative: 62-year-old male with shortness of breath for several days. Underlying history of COPD with increased oxygen requirement. Feels better here after DuoNeb treatments. EKG without ischemic findings. Troponin within normal limits. Chest x-ray without evidence of pneumonia. Given 3 DuoNeb treatments in total as well as Solu-Medrol. Admitted to the hospitalist service for exacerbation of COPD. - Lab Data Lab results reviewed: Yes I reviewed the patient's lab results. Result diagrams: 11/26/17 14:48 11/26/17 14:48 Lab Results 11/26/17 11/26/17 11/26/17 Range/Units 14:47 14:48 14:48 WBC 10.2 D (4.3-11.1) K/mcL RBC 4.10 L (4.19-5.50) M/mcL Hgb 12.8 L D (12.9-16.9) g/dL Hct 37.5 (37.5-50.1) % MCV 91.5 (83.0-100.0) fL MCH 31.2 (28.0-33.3) pg MCHC 34.1 (31.6-35.5) g/dL RDW 12.4 (11.5-14.5) % Plt Count 203 (140-400) K/mcL MPV 9.5 (9.4-12.4) fL Immature Gran % 0.6 (0-4) % Seg Neutrophils % 76.8 % Lymphocytes % 13.3 % Monocytes % 8.7 % Eosinophils % 0.5 % Basophils % 0.1 % Neutrophils # 7.8 (1.6-8.9) K/mcL Lymphocytes # 1.4 (0.6-4.6) K/mcL Monocytes # 0.9 (0.0-1.3) K/mcL Eosinophils # 0.1 (0.0-0.6) K/mcL Basophils # 0.0 (0.0-0.2) K/mcL Sodium 138 (136-145) mEq/L Potassium 3.7 (3.5-5.1) mEq/L Chloride 95 L (98-107) mEq/L Carbon Dioxide 36 H (23-29) mEq/L BUN 34 H (8-23) mg/dL Creatinine 0.54 L (0.70-1.30) mg/dL Est GFR ( Amer) > 60 (> 60) Est GFR (Non-Af Amer) > 60 (> 60) BUN/Creatinine Ratio 63 H (6-26) Glucose 105 (70-105) mg/dL Calculated Osmolality 294 (280-300) Calcium 9.2 (8.6-10.3) mg/dL Troponin I < 0.03 (< 0.04) ng/mL B-Natriuretic Peptide 43 (Less than 100) pg/mL - Radiology Data Radiology results reviewed: Yes I reviewed the patient's radiology results. Chest X-Ray 11/26/17 14:30 IMPRESSION: No acute cardiopulmonary disease. D/ / Francis Perez MD / Francis Perez MD Interpreting Provider: Francis Perez MD - EKG Data EKG attestation: Yes I reviewed and interpreted this EKG. EKG results narrative: EKG demonstrates sinus rhythm with a rate of 87 bpm. Artifact in the limb leads. Appears to be normal axis. Normal intervals. Normal R-wave progression. No gross ST elevations or depressions. No acute ischemic findings. No significant changes from previous EKG dated 11/21/17. S.B.ADonnell - Shayan.Mohamud.Terri Situation: Demographics, MOA Background: Presenting Complaint Assessment: Vital Signs, Course and respsone to treatment, Exam Concerns, Patient/Family Expectation, Pertinant Lab Results Recommendation: Barrier(s) to disposition, Recommendation based on pending studies, treatments, or consults S.BBell Report Given to: Josiah Alvarez Repor Time: 16:34
--- NOTE | 2017-11-26 17:15 | Emergency Department Note ---
Disposition Clinical Impression: COPD exacerbation Disposition: Admitted As Inpatient Condition: Good General Adult HPI - General Chief complaint: ED Shortness of Breath/Dyspnea Stated complaint: resp distress Time Seen by Provider: 11/26/17 14:24 Source: patient Mode of arrival: EMS Limitations: no limitations - History of Present Illness Pain Scale: 0 - Related Data Home Medications Medication Instructions Recorded Confirmed Albuterol Sulfate [Ventolin Hfa] 2 puff IH Q6H PRN 07/07/17 11/26/17 Bisacodyl [Woman's Laxative] 10 mg PO DAILY PRN 07/07/17 11/26/17 Budesonide/Formoterol 160/4.5 2 puff IH BID 07/07/17 11/26/17 [Symbicort 160/4.5] Docusate [Colace] 100 mg PO BID 07/07/17 11/26/17 Omeprazole [PriLOSEC] 20 mg PO DAILY 07/07/17 11/26/17 Ondansetron HCl [Zofran] 4 mg PO TID PRN 07/07/17 11/26/17 Polyethylene Glycol 3350 [MiraLAX] 17 gm PO BID PRN 07/07/17 11/26/17 Sildenafil Citrate [Viagra] 50 mg PO AD PRN 07/07/17 11/26/17 Aspirin Enteric Coated [Aspirin EC] 81 mg PO DAILY 08/23/17 11/26/17 Oxygen 2.5 l .ROUTE AD 08/23/17 11/26/17 Acetaminophen [Tylenol Arthritis] 650 mg PO Q6H PRN 11/22/17 11/26/17 LORazepam [Ativan] 0.5 mg PO BID 11/22/17 11/26/17 Melatonin/Pyridoxine HCl (B6) 6 mg PO HS PRN 11/22/17 11/26/17 [Melatonin 3 mg Tablet] OLANZapine [Zyprexa] 5 mg PO QAM 11/22/17 11/26/17 OLANZapine [Zyprexa] 10 mg PO HS 11/22/17 11/26/17 PredniSONE [Marifer] 2.5 mg PO DAILY 11/22/17 11/26/17 metFORMIN [Glucophage] 500 mg PO BID 11/22/17 11/26/17 traZODone [TraZODone] 50 mg PO TID 11/22/17 11/26/17 Previous Rx's Medication Instructions Recorded Ipratropium/Albuterol Neb [Duoneb] 3 ml IH Q6H PRN #30 inhsol 07/22/17 LORazepam [Ativan] 1 mg PO HS 3 Days #4 tablet 08/22/17 Metoprolol XL (24 HR) Succ [Toprol 12.5 mg PO DAILY #30 tab.er.24h 11/24/17 Xl] Nicotine Patch [Nicoderm] 21 mg TD DAILY patch.td24 11/24/17 levoFLOXacin [Levaquin] 750 mg PO DAILY #2 tablet 11/24/17 predniSONE [PredniSONE] 40 mg PO DAILY #10 tablet 11/24/17 Allergies Allergy/AdvReac Type Severity Reaction Status Date / Time haloperidol [From Haldol] AdvReac Muscle Pain Verified 11/21/17 18:09 [place] AdvReac Weakness Verified 11/21/17 18:09 Constitutional: Denies: fever Cardiovascular: Denies: chest pain Respiratory: Reports: dyspnea, wheezes. Denies: cough Gastrointestinal: Denies: abdominal pain, nausea, vomiting Past Medical History - Past Medical History Medical history: Reports: COPD, diabetes, hepatitis, other Surgical history: Reports: cholecystectomy Psychiatric history: Reports: anxiety, bipolar, depression, schizophrenia - Social History Smoking Status: Current every day smoker Smokeless Tobacco Status: No Alcohol use: Reports: none Drug use: Reports: none Physical Exam - General Limitations: no limitations General appearance: alert, in no apparent distress Course Vital Signs Temperature 98.2 F 11/26/17 14:05 Pulse Rate 98 11/26/17 14:05 Respiratory Rate 24 11/26/17 14:05 Blood Pressure 105/78 11/26/17 14:05 O2 Sat by Pulse Oximetry 100 11/26/17 14:05 Temperature 98 F 11/26/17 18:07 Pulse Rate 99 11/26/17 18:07 Respiratory Rate 16 11/26/17 18:07 Blood Pressure 127/94 11/26/17 18:07 O2 Sat by Pulse Oximetry 99 11/26/17 18:07 Oxygen Delivery Oxygen Delivery Nasal Cannula Medical Decision Making - Lab Data Result diagrams: 11/26/17 14:48 11/26/17 14:48 Lab Results 05/09/18 05/09/18 05/09/18 Range/Units 14:47 14:48 14:48 WBC 10.2 D (4.3-11.1) K/mcL RBC 4.10 L (4.19-5.50) M/mcL Hgb 12.8 L D (12.9-16.9) g/dL Hct 37.5 (37.5-50.1) % MCV 91.5 (83.0-100.0) fL MCH 31.2 (28.0-33.3) pg MCHC 34.1 (31.6-35.5) g/dL RDW 12.4 (11.5-14.5) % Plt Count 203 (140-400) K/mcL MPV 9.5 (9.4-12.4) fL Immature Gran % 0.6 (0-4) % Seg Neutrophils % 76.8 % Lymphocytes % 13.3 % Monocytes % 8.7 % Eosinophils % 0.5 % Basophils % 0.1 % Neutrophils # 7.8 (1.6-8.9) K/mcL Lymphocytes # 1.4 (0.6-4.6) K/mcL Monocytes # 0.9 (0.0-1.3) K/mcL Eosinophils # 0.1 (0.0-0.6) K/mcL Basophils # 0.0 (0.0-0.2) K/mcL Sodium 138 (136-145) mEq/L Potassium 3.7 (3.5-5.1) mEq/L Chloride 95 L (98-107) mEq/L Carbon Dioxide 36 H (23-29) mEq/L BUN 34 H (8-23) mg/dL Creatinine 0.54 L (0.70-1.30) mg/dL Est GFR ( Amer) > 60 (> 60) Est GFR (Non-Af Amer) > 60 (> 60) BUN/Creatinine Ratio 63 H (6-26) Glucose 105 (70-105) mg/dL Calculated Osmolality 294 (280-300) Calcium 9.2 (8.6-10.3) mg/dL Troponin I < 0.03 (< 0.04) ng/mL B-Natriuretic Peptide 43 (Less than 100) pg/mL 11/26/17 Range/Units 18:13 WBC (4.3-11.1) K/mcL RBC (4.19-5.50) M/mcL Hgb (12.9-16.9) g/dL Hct (37.5-50.1) % MCV (83.0-100.0) fL MCH (28.0-33.3) pg MCHC (31.6-35.5) g/dL RDW (11.5-14.5) % Plt Count (140-400) K/mcL MPV (9.4-12.4) fL Immature Gran % (0-4) % Seg Neutrophils % % Lymphocytes % % Monocytes % % Eosinophils % % Basophils % % Neutrophils # (1.6-8.9) K/mcL Lymphocytes # (0.6-4.6) K/mcL Monocytes # (0.0-1.3) K/mcL Eosinophils # (0.0-0.6) K/mcL Basophils # (0.0-0.2) K/mcL Sodium (136-145) mEq/L Potassium (3.5-5.1) mEq/L Chloride (98-107) mEq/L Carbon Dioxide (23-29) mEq/L BUN (8-23) mg/dL Creatinine (0.70-1.30) mg/dL Est GFR ( Amer) (> 60) Est GFR (Non-Af Amer) (> 60) BUN/Creatinine Ratio (6-26) Glucose (70-105) mg/dL Calculated Osmolality (280-300) Calcium (8.6-10.3) mg/dL Troponin I < 0.03 (< 0.04) ng/mL B-Natriuretic Peptide (Less than 100) pg/mL Attestation Statement - Attestation Attestation: I examined this patient and my medical decision-making was reviewed with the Resident Physician, Dr. Lozano. I agree with the documented findings, disposition and treatment plan as described except to the extent set forth below. is a 62-year-old white male with a history of COPD who is brought to us by EMS today for hypoxia. He is on 3 L nasal cannula oxygen at all times and on his home O2 is found to be extremely hypoxic. Patient received steroids and breathing treatments in route and on arrival here is much improved. Patient is currently on 5 L nasal cannula resting comfortably with stable vital signs. Patient just complains of gradually worsening shortness of breath. He denies any chest pain pressure or heaviness, no other associated symptoms. I agree with patient's physical exam findings as documented. Vital signs otherwise stable on arrival. Patient underwent EKG which was negative for any acute ischemia or arrhythmia. Patient had an IV arty established and continued breathing treatments here, laboratory evaluation was obtained and chest x-ray was obtained. All of patient 's workup up to this point is unremarkable patient still with diminished breath sounds throughout and end expiratory wheezing on". patient will be admitted for acute exacerbation of COPD, case discussed with hospitalist who accepted patient for admission for further evaluation and management.
[2017-11-26] MEDS ORDERED: Naloxone 0.4 MG/ML INJ IVP PRN (17:36)
[2017-11-26] MEDS ORDERED: Ondansetron ODT 4 MG TAB.RAPDIS PO PRN (17:40)
[2017-11-26] MEDS ORDERED: (Melatonin/Pyridoxine Hcl (B6) [Melatonin 3 Mg Tablet) PO PRN (17:40)
[2017-11-26] MEDS ORDERED: NON-FORMULARY MEDICATION 1 EACH EACH (Oxygen [Oxygen] 2.5 L) SCH (17:45)
[2017-11-26] MEDS ORDERED: *HR* Dextrose 50 % in Water (Syg) 50 ML SYRINGE IVP PRN (17:48)
[2017-11-26] MEDS ORDERED: D5% in Water 1,000 ML IVC PRN (17:48)
[2017-11-26] MEDS ORDERED: Dextrose Gel 15 GM/37.5 ML TUBE PO PRN ×2 (17:48)
--- NOTE | 2017-11-26 17:54 | Internal Med History&Physical ---
Date of Encounter: 11/26/17 Time of Encounter: 17:47 Internal Medicine - H&P: HPI Chief complaint: shortness of breath Admitted From: Emergency Dept Plans for Post Hospital Care: Home History of present illness: Mr. Sosa is a 62 year old male who is a background medical history of for diabetes mellitus, hypertension, dyslipidemia, coronary artery disease, advanced stage IV hold COPD. Patient started complaining of cough along with worsening shortness of breath for the past 3-4 days. In last 24 hours he is symptoms are gradually worsening. Patient claims that there is a change in the color of expectoration along with persistent cough. Patient also claims that he has a subjective fever. All these worsening symptoms brought him to the emergency department for further evaluation. Patient denies chest pain, nausea, vomiting, dizziness and diarrhea. Workup in the emergency room: Patient was evaluated in the emergency room. Chest x-ray was drawn. Basic labs were done. Reason for admission: Acute exacerbation of COPD likely infective etiology. Family history: Noncontributory Past Med Surg Social Fam HX - Past Medical History Medical history: COPD, diabetes, hepatitis, other Psychiatric history: anxiety, bipolar, depression, schizophrenia - Past Surgical History Surgical History: cholecystectomy - Social History Smoking Status: Current every day smoker Smokeless Tobacco Status: No Alcohol use: none Drug use: none - Family History Mother Adopted: No Family Member Ethnicity: Non- Living Status: Hx Family Cardiac Disorders: Yes Hx Family Respiratory Disorders: Yes (dad emphezema) Hx Family Cancer: Yes (lung CA) Hx Family GI Disorders: No Hx Family Endocrine Disorder: Yes (DM) Hx Family Neuromuscular Disorders: No Hx Family Neurologic Disorders: No Hx Family HEENT Disorders: No Hx Family Autoimmune Disorders: No Father Adopted: No Family Member Ethnicity: Non- Living Status: Hx Family Cardiac Disorders: No Hx Family Respiratory Disorders: Yes Hx Family Cancer: Yes (Lung CA) Hx Family GI Disorders: No Hx Family Endocrine Disorder: No Hx Family Neuromuscular Disorders: No Hx Family Neurologic Disorders: No Hx Family HEENT Disorders: No Hx Family Autoimmune Disorders: No Brother Family Member Ethnicity: Non- Living Status: Still Living Hx Family Respiratory Disorders: Yes (Emphysema) Sister Family Member Ethnicity: Non- Living Status: Still Living Internal Medicine - H&P: Meds Albuterol Sulfate [Ventolin Hfa] 2 puff IH Q6H PRN 07/07/17 [History] Bisacodyl [Woman's Laxative] 10 mg PO DAILY PRN 07/07/17 [History] Budesonide/Formoterol 160/4.5 [Symbicort 160/4.5] 2 puff IH BID 07/07/17 [ History] Docusate [Colace] 100 mg PO BID 07/07/17 [History] Omeprazole [PriLOSEC] 20 mg PO DAILY 07/07/17 [History] Ondansetron HCl [Zofran] 4 mg PO TID PRN 07/07/17 [History] Polyethylene Glycol 3350 [MiraLAX] 17 gm PO BID PRN 07/07/17 [History] Sildenafil Citrate [Viagra] 50 mg PO AD PRN 07/07/17 [History] Ipratropium/Albuterol Neb [Duoneb] 3 ml IH Q6H PRN #30 inhsol 07/22/17 [Rx] LORazepam [Ativan] 1 mg PO HS 3 Days #4 tablet 08/22/17 [Rx] Aspirin Enteric Coated [Aspirin EC] 81 mg PO DAILY 08/23/17 [History] Oxygen 2.5 l .ROUTE AD 08/23/17 [History] Acetaminophen [Tylenol Arthritis] 650 mg PO Q6H PRN 11/22/17 [History] LORazepam [Ativan] 0.5 mg PO BID 11/22/17 [History] Melatonin/Pyridoxine HCl (B6) [Melatonin 3 mg Tablet] 6 mg PO HS PRN 11/22/17 [ History] OLANZapine [Zyprexa] 5 mg PO QAM 11/22/17 [History] OLANZapine [Zyprexa] 10 mg PO HS 11/22/17 [History] PredniSONE [Marifer] 2.5 mg PO DAILY 11/22/17 [History] metFORMIN [Glucophage] 500 mg PO BID 11/22/17 [History] traZODone [TraZODone] 50 mg PO TID 11/22/17 [History] Metoprolol XL (24 HR) Succ [Toprol Xl] 12.5 mg PO DAILY #30 tab.er.24h 11/24/17 [Rx] Nicotine Patch [Nicoderm] 21 mg TD DAILY patch.td24 11/24/17 [Rx] levoFLOXacin [Levaquin] 750 mg PO DAILY #2 tablet 11/24/17 [Rx] predniSONE [PredniSONE] 40 mg PO DAILY #10 tablet 11/24/17 [Rx] 3 Allergy/AdvReac Type Severity Reaction Status Date / Time haloperidol [From Haldol] AdvReac Muscle Pain Verified 11/21/17 18:09 [place] AdvReac Weakness Verified 11/21/17 18:09 All Systems PM: A 10-system review of systems was performed and is negative for pertinent findings except as documented above in the HPI. - Constitutional Constitutional: no chills, no fever(s), no night sweats - EENT Eyes: no change in vision, no discharge, no pain, no photophobia Ears: no ear discharge, no ear pain, no tinnitus Nose, mouth and throat: no dysphagia, no nasal discharge, no neck pain, no sore throat - Cardiovascular Cardiovascular ROS IM: diaphoresis, dyspnea, dyspnea on exertion, no chest pain , no lightheadedness, no palpitations, no syncope - Respiratory Respiratory: excessive phlegm production, change in phlegm color, no cough, no dyspnea, no wheezing - Gastrointestinal Gastrointestinal: no abdominal pain, no diarrhea, no hematemesis, no hematochezia, no melena, no nausea, no vomiting - Musculoskeletal Musculoskeletal ROS IM: no numbness, no tingling - Integumentary Integumentary IM: no rash, no unusual bruising - Neurological Neurological ROS: no confusion, no convulsions, no focal weakness, no numbness, no tingling, no tremor(s) - Hematologic/Lymphatic Hematologic/Lymphatic: no easy bruising - Constitutional Vitals: Temp Pulse Resp BP Pulse Ox 98.2 F 99 20 106/55 100 11/26/17 14:05 11/26/17 14:58 11/26/17 14:58 11/26/17 14:58 11/26/17 14:58 General appearance: Present: A&O X 3, pleasant, no acute distress, answers questions appropriately - Head Head exam: Present: atraumatic, normocephalic - Eye Eye exam: Present: PERRL, conjuntiva pink, sclera anicteric Pupils: Present: PERRL - Neck Neck exam general surgery: Present: supple, trachea midline. Absent: lymphadenopathy - Respiratory Respiratory exam: Present: CTAB, rhonchi, wheezes, tachypnea. Absent: accessory muscle use, rales - Cardiovascular Cardiovascular exam: Present: RRR, +S1, +S2. Absent: diastolic murmur, gallop, rubs, systolic murmur - GI/Abdominal GI/Abdominal exam: Present: normal bowel sounds, soft, no peritoneal signs. Absent: distended, tenderness - Extremities Exam Extremities exam: Present: warm, radial pulses palpable and symmetrical. Absent : calf tenderness, cyanotic, pedal edema - Neurological Exam Neurological exam: Present: CN II-XII intact, oriented X3, no focal deficits. Absent: pronater drift, facial droop, speech deficit - Skin Skin exam: Present: dry, intact Internal Med - H&P Results - Labs CBC & Chem 7: 11/26/17 14:48 11/26/17 14:48 - Assessment and plan (1) Acute exacerbation of chronic obstructive airways disease Current Visit: No Status: Acute Assessment and plan: 62/male Admitted with acute exacerbation of COPD. Plan: Admit as inpatient. Basic labs. Telemetry. Diabetic diet. Antibiotics: Ceftriaxone/azithromycin. Steroids: Solu-Medrol Bronchodilators: DuoNeb. I examined this patient in the emergency department room #15. Plan of care explained to the patient at length. There is no family member at this point with the patient at bedside. Patient verbalized understanding. (2) Diabetes mellitus Current Visit: No Status: Chronic Assessment and plan: Patient does have a diabetes mellitus. We will continue home regimen of insulin. We will follow the orders from subcutaneous insulin order set. Qualifiers: Diabetes mellitus type: type 2 Diabetes mellitus exterminator insulin use: without half-way use Diabetes mellitus complication status: with hyperglycemia Qualified Code(s): E11.65 - Type 2 diabetes mellitus with hyperglycemia (3) Schizoaffective disorder, bipolar type Current Visit: No Status: Chronic Assessment and plan: Patient is a schizoaffective disorder. Patient is presently on a medication same. We will resume this medication during hospitalization. (4) Chronic hepatitis C Current Visit: No Status: Chronic Assessment and plan: Patient is a chronic otitis see. patient is not on any active treatment. patient will need a gastroenterology follow-up on discharge. Qualifiers: Hepatic coma status: without hepatic coma Qualified Code(s): B18.2 - Chronic viral hepatitis C (5) DVT prophylaxis Current Visit: No Status: Acute Assessment and plan: Heparin Medical decision making: This patient is a moderate to severe risk of worsening in spite of being on appropriate medication due to the underlying complex medical condition. - Time Spent With Patient Total time spent is greater than 50% in coordination of care (as documented) at patient's floor/unit and/or counseling patient:
[2017-11-26] MEDS: traZODone 50 MG TABLET PO SCH (20:58)
[2017-11-26] MEDS: OLANZapine 10 MG TAB.RAPDIS PO SCH (20:58)
[2017-11-26] MEDS: Nicotine 21 MG PATCH.TD24 TD SCH (20:59)
[2017-11-26] MEDS ORDERED: *HR* LORazepam 1 MG TABLET PO SCH (21:00)
[2017-11-26] MEDS: cefTRIAXone 1,000 MG in Water for inj. (sterile) 20 ML 10 ML IVP SCH (21:04)
[2017-11-26] MEDS: Azithromycin 500 MG in D5% in Water 250 ML IVPB SCH (21:20)
[2017-11-26] MEDS: Ipratropium/Albuterol Neb 3 ML IH PRN (21:20)
[2017-11-26] MEDS: Budesonide/Formoterol 160/4.5 MDI IH SCH (21:21)
[2017-11-27] MEDS: *HR* Heparin 5,000 UNIT/ML VIAL SQ SCH ×3 (00:50→18:37)
[2017-11-27] MEDS: MethylPREDNISolone 40 MG/ML VIAL IVP SCH ×3 (00:50→18:37)
[2017-11-27 01:10] LABS: Basophils % 0.2 %; Hematocrit 34.4 % (37.5-50.1); Hemoglobin 11.5 g/dL (12.9-16.9); Immature Granulocytes % 0.6 % (0-4); Lymphocytes # 0.6 K/mcL (0.6-4.6); Lymphocytes % 11.2 %; Mean Corpuscular HGB Conc 33.4 g/dL (31.6-35.5); Mean Corpuscular Hemoglobin 30.1 pg (28.0-33.3); Mean Corpuscular Volume 90.1 fL (83.0-100.0); Mean Platelet Volume 9.6 fL (9.4-12.4); Monocytes # 0.2 K/mcL (0.0-1.3); Monocytes % 3.4 %; Neutrophils # 4.5 K/mcL (1.6-8.9); Platelet Count 178 K/mcL (140-400); Red Blood Count 3.82 M/mcL (4.19-5.50); Red Cell Distribution Width 12.3 % (11.5-14.5); Segmented Neutrophils % 84.6 %
[2017-11-27 01:18] LABS: INR 1.2; Prothrombin Time 12.5 Seconds (9.4-12.1)
[2017-11-27 01:20] LABS: Activated Partial Thrombo Time 24.1 Seconds (26.0-36.0)
[2017-11-27 01:30] LABS: BUN/Creatinine Ratio 47 (6-26); Blood Urea Nitrogen 23 mg/dL (8-23); Carbon Dioxide 37 mEq/L (23-29); Chloride 92 mEq/L (98-107); Potassium 3.9 mEq/L (3.5-5.1); Sodium 136 mEq/L (136-145); eGFR For African Americans > 60 (> 60)
[2017-11-27 01:31] LABS: Alanine Aminotransferase 12 Units/L (7-52); Albumin 3.6 g/dL (3.5-5.7); Albumin/Globulin Ratio 1.5 (1.1-2.2); Alkaline Phosphatase 84 Units/L (34-104); Aspartate Amino Transferase 13 Units/L (13-39); Bilirubin,Total 0.3 mg/dL (0.3-1.0); Calcium 8.9 mg/dL (8.6-10.3); Chol/HDL Ratio 2.3 (0-4.9); Cholesterol 130 mg/dL (< 200); Globulin 2.4 g/dL (2.4-3.5); Glucose 212 mg/dL (70-105); HDL Cholesterol 57 mg/dL (40-59); LDL Cholesterol,Calculated 60 mg/dL (0-99); Magnesium 2.1 mg/dL (1.6-2.6); Osmolality,Calculated 292 (280-300); Phosphorous 3.2 mg/dL (2.7-4.5); Triglycerides 65 mg/dL (< 150); eGFR For Non-African Americans > 60 (> 60)
[2017-11-27] MEDS: Ipratropium/Albuterol Neb 3 ML IH PRN (06:40)
[2017-11-27] MEDS ORDERED: Nicotine 21 MG PATCH.TD24 TD SCH (09:00)
[2017-11-27] MEDS: Insulin LISPRO 300 UNITS/3 ML VIAL SQ SCH ×3 (09:35→18:38)
[2017-11-27] MEDS: Aspirin Enteric Coated 81 MG Tablet PO SCH (09:36)
[2017-11-27] MEDS: traZODone 50 MG TABLET PO SCH ×3 (09:36→20:45)
[2017-11-27] MEDS: Metoprolol XL (24 HR) Succ 25 MG TAB.ER.24H PO SCH (09:36)
[2017-11-27] MEDS: OLANZapine 5 MG TAB.RAPDIS PO SCH (09:36)
[2017-11-27] MEDS: Nicotine 21 MG PATCH.TD24 TD SCH (09:37)
--- NOTE | 2017-11-27 10:40 | Internal Med Progress Note ---
Date of Encounter: 11/27/17 Time of Encounter: 10:30 - Assessment and plan (1) Acute exacerbation of chronic obstructive airways disease Current Visit: No Status: Acute Assessment and plan: Continue on nebs, steroids and antibiotics. Taper IV steroids to PO as tolerated. BIPAP as needed (2) DVT prophylaxis Current Visit: No Status: Acute Assessment and plan: Heparin. (3) Schizoaffective disorder, bipolar type Current Visit: No Status: Chronic Assessment and plan: Patient is a schizoaffective disorder. Patient is presently on a medication same. We will resume this medication during hospitalization. (4) Chronic hepatitis C Current Visit: No Status: Chronic Assessment and plan: Outpatient follow up with GI Qualifiers: Hepatic coma status: without hepatic coma Qualified Code(s): B18.2 - Chronic viral hepatitis C (5) Diabetes mellitus Current Visit: No Status: Chronic Assessment and plan: Continue home insulin regimen Qualifiers: Diabetes mellitus type: type 2 Diabetes mellitus emt intermediate insulin use: without emt intermediate use Diabetes mellitus complication status: with hyperglycemia Qualified Code(s): E11.65 - Type 2 diabetes mellitus with hyperglycemia - Time Spent With Patient Total time spent is greater than 50% in coordination of care (as documented) at patient's floor/unit and/or counseling patient: - Subjective Interval history: No acute events overnight - Constitutional Vitals: Temp Pulse Resp BP Pulse Ox 97.8 F 88 15 112/68 97 11/27/17 07:08 11/27/17 07:08 11/27/17 07:08 11/27/17 07:08 11/27/17 07:08 General appearance: Present: A&O X 3, pleasant, no acute distress, answers questions appropriately - Head Head exam: Present: atraumatic, normocephalic - Eye Eye exam: Present: PERRL, conjuntiva pink, sclera anicteric Pupils: Present: PERRL - Neck Neck exam general surgery: Present: supple, trachea midline. Absent: lymphadenopathy - Respiratory Respiratory exam: Present: CTAB. Absent: accessory muscle use, rales, rhonchi, wheezes - Cardiovascular Cardiovascular exam: Present: RRR, +S1, +S2. Absent: diastolic murmur, gallop, rubs, systolic murmur - GI/Abdominal GI/Abdominal exam: Present: normal bowel sounds, soft, no peritoneal signs. Absent: distended, tenderness - Extremities Exam Extremities exam: Present: warm, radial pulses palpable and symmetrical. Absent : calf tenderness, cyanotic, pedal edema - Neurological Exam Neurological exam: Present: CN II-XII intact, oriented X3, no focal deficits. Absent: pronater drift, facial droop, speech deficit - Skin Skin exam: Present: dry, intact Internal Medicine: Result - Labs CBC & Chem 7: 11/27/17 00:41 11/27/17 00:41 Labs: Short CBC 11/27/17 Range/Units 00:41 WBC 5.4 (4.3-11.1) K/mcL Hgb 11.5 L (12.9-16.9) g/dL Hct 34.4 L (37.5-50.1) % Plt Count 178 (140-400) K/mcL Neutrophils # 4.5 (1.6-8.9) K/mcL BMP 11/27/17 00:41 Sodium 136 Potassium 3.9 Chloride 92 L Carbon Dioxide 37 H BUN 23 Creatinine 0.49 L Glucose 212 H Calcium 8.9 Cardiac Enzymes 11/27/17 11/27/17 Range/Units 00:41 06:05 Troponin I < 0.03 < 0.03 (< 0.04) ng/mL Liver Function 11/27/17 Range/Units 00:41 Total Bilirubin 0.3 (0.3-1.0) mg/dL AST 13 (13-39) Units/L ALT 12 (7-52) Units/L Alkaline Phosphatase 84 (34-104) Units/L Albumin 3.6 (3.5-5.7) g/dL - ABG Interpretation ABG results: PT/INR, D-dimer PT 12.5 Seconds (9.4-12.1) H 11/27/17 00:41 Consult Discharge Plan - Plan [facility]: [facility] [Primary Care Provider] -
[2017-11-27] MEDS ORDERED: *HR* LORazepam 1 MG TABLET PO PRN (10:55)
[2017-11-27] MEDS ORDERED: Ipratropium/Albuterol Neb 3 ML ONE (10:59)
[2017-11-27] MEDS: Ipratropium/Albuterol Neb 3 ML IH SCH ×5 (11:06→23:15)
[2017-11-27] MEDS: Budesonide/Formoterol 160/4.5 MDI IH SCH ×2 (11:06→19:52)
[2017-11-27] MEDS: *HR* LORazepam 2 MG/ML VIAL IVP PRN ×2 (11:19→19:27)
[2017-11-27 15:05] LABS: Amphetamine Screen,Urine Negative ng/mL (Cutoff=1000); Barbiturate Screen,Urine Negative ng/mL (Cutoff=200); Benzodiazepines Screen,Urine Negative ng/mL (Cutoff=200); Cannabinoid Screen,Urine Positive ng/mL (Cutoff = 50); Cocaine Screen,Urine Positive ng/mL (Cutoff= 300); Opiate Screen,Urine Negative ng/mL (Cutoff=300); Phencyclidine Screen,Urine Negative ng/mL (Cutoff=25)
--- NOTE | 2017-11-27 15:20 | Electrocardiograph Report ---
[place] [id number] Test Date: 2017-11-26 Pat Name: Pa Sosa Department: 103 Room: 2NE20 Gender: M Athletic Coordinator: KIRSTEN : 1955 Requested By: Corey Lozano Order Number: [id number] Reading MD: Mone Sharma Measurements Intervals [place] Rate: 87 P: 83 AK: 173 QRS: 56 QRSD: 91 T: 62 QT: 310 QTc: 354 Interpretive Statements SINUS RHYTHM WITH SINUS ARRHYTHMIA BASELINE ARTIFACT Electronically Signed On 11-27-2017 15:19:21 EDT by Mone Sharma
[2017-11-27] MEDS: Azithromycin 500 MG in D5% in Water 250 ML IVPB SCH (18:35)
[2017-11-27] MEDS: cefTRIAXone 1,000 MG in Water for inj. (sterile) 20 ML 10 ML IVP SCH (18:36)
[2017-11-27] MEDS: OLANZapine 10 MG TAB.RAPDIS PO SCH (20:45)
[2017-11-28] MEDS: MethylPREDNISolone 40 MG/ML VIAL IVP SCH ×2 (01:45→08:18)
[2017-11-28] MEDS: *HR* Heparin 5,000 UNIT/ML VIAL SQ SCH ×3 (01:45→14:54)
[2017-11-28] MEDS: *HR* LORazepam 2 MG/ML VIAL IVP PRN ×3 (03:46→20:21)
[2017-11-28] MEDS: Ipratropium/Albuterol Neb 3 ML IH SCH ×6 (03:53→23:50)
[2017-11-28] MEDS: Budesonide/Formoterol 160/4.5 MDI IH SCH ×2 (07:23→22:11)
[2017-11-28] MEDS: Aspirin Enteric Coated 81 MG Tablet PO SCH (08:16)
[2017-11-28] MEDS: traZODone 50 MG TABLET PO SCH ×3 (08:16→20:21)
[2017-11-28] MEDS: OLANZapine 5 MG TAB.RAPDIS PO SCH (08:17)
[2017-11-28] MEDS: Nicotine 21 MG PATCH.TD24 TD SCH (08:17)
[2017-11-28] MEDS: Metoprolol XL (24 HR) Succ 25 MG TAB.ER.24H PO SCH (08:17)
[2017-11-28] MEDS: Insulin LISPRO 300 UNITS/3 ML VIAL SQ SCH ×3 (08:18→18:05)
[2017-11-28] MEDS ORDERED: *HR* LORazepam 0.5 MG TABLET PO SCH (09:00)
--- NOTE | 2017-11-28 10:53 | Internal Med Progress Note ---
Date of Encounter: 11/28/17 Time of Encounter: 10:50 - Assessment and plan (1) Acute exacerbation of chronic obstructive airways disease Current Visit: No Status: Acute Assessment and plan: Continue on nebs, steroids and antibiotics. Continue on IV steroids. BIPAP as needed (2) DVT prophylaxis Current Visit: No Status: Acute Assessment and plan: Heparin. (3) Schizoaffective disorder, bipolar type Current Visit: No Status: Chronic Assessment and plan: Continue home meds. (4) Chronic hepatitis C Current Visit: No Status: Chronic Assessment and plan: Outpatient follow up with GI Qualifiers: Hepatic coma status: without hepatic coma Qualified Code(s): B18.2 - Chronic viral hepatitis C (5) Diabetes mellitus Current Visit: No Status: Chronic Assessment and plan: Continue home insulin regimen Qualifiers: Diabetes mellitus type: type 2 Diabetes mellitus intermediate school teacher insulin use: without intermediate school teacher use Diabetes mellitus complication status: with hyperglycemia Qualified Code(s): E11.65 - Type 2 diabetes mellitus with hyperglycemia - Time Spent With Patient Total time spent is greater than 50% in coordination of care (as documented) at patient's floor/unit and/or counseling patient: - Subjective Interval history: No acute events overnight - Constitutional Vitals: Temp Pulse Resp BP Pulse Ox 98.4 F 74 20 117/82 96 11/28/17 07:22 11/28/17 07:22 11/28/17 07:23 11/28/17 07:22 11/28/17 08:34 General appearance: Present: A&O X 3, pleasant, no acute distress, answers questions appropriately - Head Head exam: Present: atraumatic, normocephalic - Eye Eye exam: Present: PERRL, conjuntiva pink, sclera anicteric Pupils: Present: PERRL - Neck Neck exam general surgery: Present: supple, trachea midline. Absent: lymphadenopathy - Respiratory Respiratory exam: Present: wheezes. Absent: accessory muscle use, rales, rhonchi Additional comments: Diffuse wheezing with prolonged expiratory phase - Cardiovascular Cardiovascular exam: Present: RRR, +S1, +S2. Absent: diastolic murmur, gallop, rubs, systolic murmur - GI/Abdominal GI/Abdominal exam: Present: normal bowel sounds, soft, no peritoneal signs. Absent: distended, tenderness - Extremities Exam Extremities exam: Present: warm, radial pulses palpable and symmetrical. Absent : calf tenderness, cyanotic, pedal edema - Neurological Exam Neurological exam: Present: CN II-XII intact, oriented X3, no focal deficits. Absent: pronater drift, facial droop, speech deficit - Skin Skin exam: Present: dry, intact Internal Medicine: Result - Labs CBC & Chem 7: 18 00:41 11/27/17 00:41 - ABG Interpretation ABG results: PT/INR, D-dimer PT 12.5 Seconds (9.4-12.1) H 11/27/17 00:41 Consult Discharge Plan - Plan [facility]errals: [facility] [Primary Care Provider] -
[2017-11-28] MEDS: methylPREDNISolone 125 MG/2 ML VIAL IVP SCH (14:54)
[2017-11-28] MEDS: cefTRIAXone 1,000 MG in Water for inj. (sterile) 20 ML 10 ML IVP SCH (18:02)
[2017-11-28] MEDS: Azithromycin 500 MG in D5% in Water 250 ML IVPB SCH (18:03)
[2017-11-28] MEDS: OLANZapine 10 MG TAB.RAPDIS PO SCH (20:21)
[2017-11-29] MEDS: *HR* Heparin 5,000 UNIT/ML VIAL SQ SCH ×4 (00:15→23:25)
[2017-11-29] MEDS: methylPREDNISolone 125 MG/2 ML VIAL IVP SCH ×2 (00:16→08:36)
[2017-11-29] MEDS: Ipratropium/Albuterol Neb 3 ML IH SCH ×6 (03:40→23:31)
[2017-11-29 04:36] LABS: Basophils % 0.1 %; Hematocrit 31.9 % (37.5-50.1); Hemoglobin 10.6 g/dL (12.9-16.9); Immature Granulocytes % 0.7 % (0-4); Lymphocytes # 0.5 K/mcL (0.6-4.6); Lymphocytes % 6.6 %; Mean Corpuscular HGB Conc 33.2 g/dL (31.6-35.5); Mean Corpuscular Hemoglobin 29.9 pg (28.0-33.3); Mean Corpuscular Volume 90.1 fL (83.0-100.0); Mean Platelet Volume 9.7 fL (9.4-12.4); Monocytes # 0.4 K/mcL (0.0-1.3); Monocytes % 4.7 %; Neutrophils # 7.1 K/mcL (1.6-8.9); Platelet Count 156 K/mcL (140-400); Red Blood Count 3.54 M/mcL (4.19-5.50); Red Cell Distribution Width 12.1 % (11.5-14.5); Segmented Neutrophils % 87.9 %
[2017-11-29 05:02] LABS: BUN/Creatinine Ratio 50 (6-26); Blood Urea Nitrogen 22 mg/dL (8-23); Calcium 8.7 mg/dL (8.6-10.3); Carbon Dioxide 38 mEq/L (23-29); Chloride 98 mEq/L (98-107); Glucose 226 mg/dL (70-105); Osmolality,Calculated 300 (280-300); Sodium 140 mEq/L (136-145); eGFR For African Americans > 60 (> 60); eGFR For Non-African Americans > 60 (> 60)
[2017-11-29] MEDS: *HR* LORazepam 2 MG/ML VIAL IVP PRN ×3 (06:09→23:26)
[2017-11-29] MEDS: Budesonide/Formoterol 160/4.5 MDI IH SCH ×2 (07:33→19:45)
[2017-11-29] MEDS: Metoprolol XL (24 HR) Succ 25 MG TAB.ER.24H PO SCH (08:35)
[2017-11-29] MEDS: OLANZapine 5 MG TAB.RAPDIS PO SCH (08:35)
[2017-11-29] MEDS: traZODone 50 MG TABLET PO SCH ×3 (08:35→21:21)
[2017-11-29] MEDS: Insulin LISPRO 300 UNITS/3 ML VIAL SQ SCH ×3 (08:36→17:54)
[2017-11-29] MEDS: Aspirin Enteric Coated 81 MG Tablet PO SCH (08:36)
[2017-11-29] MEDS: Nicotine 21 MG PATCH.TD24 TD SCH (08:37)
--- NOTE | 2017-11-29 09:02 | Internal Med Progress Note ---
Date of Encounter: 11/29/17 Time of Encounter: 09:00 - Assessment and plan (1) Acute exacerbation of chronic obstructive airways disease Current Visit: No Status: Acute Assessment and plan: Continue on nebs, steroids and antibiotics. steroids have been tapered to po this am (2) DVT prophylaxis Current Visit: No Status: Acute Assessment and plan: Heparin. (3) Schizoaffective disorder, bipolar type Current Visit: No Status: Chronic Assessment and plan: Continue home meds. (4) Chronic hepatitis C Current Visit: No Status: Chronic Assessment and plan: Outpatient follow up with GI Qualifiers: Hepatic coma status: without hepatic coma Qualified Code(s): B18.2 - Chronic viral hepatitis C (5) Diabetes mellitus Current Visit: No Status: Chronic Assessment and plan: Continue home insulin regimen Qualifiers: Diabetes mellitus type: type 2 Diabetes mellitus rn long term care insulin use: without rn long term care use Diabetes mellitus complication status: with hyperglycemia Qualified Code(s): E11.65 - Type 2 diabetes mellitus with hyperglycemia - Time Spent With Patient Total time spent is greater than 50% in coordination of care (as documented) at patient's floor/unit and/or counseling patient: - Subjective Interval history: No acute events overnight - Constitutional Vitals: Temp Pulse Resp BP Pulse Ox 97.9 F 92 16 127/78 98 11/29/17 07:56 11/29/17 07:56 11/29/17 07:56 11/29/17 07:56 11/29/17 08:46 General appearance: Present: A&O X 3, pleasant, no acute distress, answers questions appropriately - Head Head exam: Present: atraumatic, normocephalic - Eye Eye exam: Present: PERRL, conjuntiva pink, sclera anicteric Pupils: Present: PERRL - Neck Neck exam general surgery: Present: supple, trachea midline. Absent: lymphadenopathy - Respiratory Respiratory exam: Absent: accessory muscle use, rales, rhonchi, wheezes Additional comments: Still has scattered wheezes - Cardiovascular Cardiovascular exam: Present: RRR, +S1, +S2. Absent: diastolic murmur, gallop, rubs, systolic murmur - GI/Abdominal GI/Abdominal exam: Present: normal bowel sounds, soft, no peritoneal signs. Absent: distended, tenderness - Extremities Exam Extremities exam: Present: warm, radial pulses palpable and symmetrical. Absent : calf tenderness, cyanotic, pedal edema - Neurological Exam Neurological exam: Present: CN II-XII intact, oriented X3, no focal deficits. Absent: pronater drift, facial droop, speech deficit - Skin Skin exam: Present: dry, intact Internal Medicine: Result - Labs CBC & Chem 7: 11/29/17 04:04 11/29/17 04:04 Labs: Short CBC 11/29/17 Range/Units 04:04 WBC 8.1 (4.3-11.1) K/mcL Hgb 10.6 L (12.9-16.9) g/dL Hct 31.9 L (37.5-50.1) % Plt Count 156 (140-400) K/mcL Neutrophils # 7.1 (1.6-8.9) K/mcL BMP 11/29/17 04:04 Sodium 140 Potassium 4.0 Chloride 98 Carbon Dioxide 38 H BUN 22 Creatinine 0.44 L Glucose 226 H Calcium 8.7 - ABG Interpretation ABG results: PT/INR, D-dimer PT 12.5 Seconds (9.4-12.1) H 11/27/17 00:41 Consult Discharge Plan - Plan [facility]errals: [facility] [Primary Care Provider] -
[2017-11-29] MEDS: predniSONE 20 MG TABLET PO SCH (11:57)
[2017-11-29] MEDS: cefTRIAXone 1,000 MG in Water for inj. (sterile) 20 ML 10 ML IVP SCH (17:54)
[2017-11-29] MEDS: Azithromycin 500 MG in D5% in Water 250 ML IVPB SCH (17:55)
[2017-11-29] MEDS: OLANZapine 10 MG TAB.RAPDIS PO SCH (21:21)
[2017-11-30 03:16] LABS: Basophils % 0.1 %; Hematocrit 32.2 % (37.5-50.1); Immature Granulocytes % 1.4 % (0-4); Lymphocytes # 1.3 K/mcL (0.6-4.6); Lymphocytes % 16.5 %; Mean Corpuscular HGB Conc 34.2 g/dL (31.6-35.5); Mean Corpuscular Hemoglobin 31.1 pg (28.0-33.3); Mean Platelet Volume 9.4 fL (9.4-12.4); Monocytes # 0.7 K/mcL (0.0-1.3); Neutrophils # 5.8 K/mcL (1.6-8.9); Platelet Count 144 K/mcL (140-400); Red Blood Count 3.54 M/mcL (4.19-5.50)
[2017-11-30] MEDS: Ipratropium/Albuterol Neb 3 ML IH SCH ×4 (03:34→15:37)
[2017-11-30 03:35] LABS: BUN/Creatinine Ratio 51 (6-26); Blood Urea Nitrogen 21 mg/dL (8-23); Calcium 8.7 mg/dL (8.6-10.3); Carbon Dioxide 39 mEq/L (23-29); Chloride 97 mEq/L (98-107); Glucose 153 mg/dL (70-105); Osmolality,Calculated 290 (280-300); Potassium 3.8 mEq/L (3.5-5.1); Sodium 137 mEq/L (136-145); eGFR For African Americans > 60 (> 60); eGFR For Non-African Americans > 60 (> 60)
[2017-11-30 07:15] VITALS: BP 122/87
[2017-11-30] MEDS: Budesonide/Formoterol 160/4.5 MDI IH SCH (07:26)
[2017-11-30] MEDS: Insulin LISPRO 300 UNITS/3 ML VIAL SQ SCH ×2 (07:58→11:47)
--- NOTE | 2017-11-30 08:20 | Discharge Summary ---
Orders not resulted at time of discharge: Pending orders 12/01/17 04:00 Basic Metabolic Panel AM 0400 CBC [Complete Blood Count] [HEME] AM 04012/02/17 04:00 Basic Metabolic Panel AM 0400 CBC [Complete Blood Count] [HEME] AM 04012/03/17 04:00 Basic Metabolic Panel AM 0400 CBC [Complete Blood Count] [HEME] AM 0400 12/04/17 04:00 Basic Metabolic Panel AM 0400 CBC [Complete Blood Count] [HEME] AM 0400 Date of Encounter: 11/30/17 Time of Encounter: 08:15 - Discharge Diagnosis (1) Acute exacerbation of chronic obstructive airways disease Priority: Primary Status: Acute Assessment and Plan: 62 year old male came in with shortness of breath and wheezing. He was assessed with acute COPD exacerbation and acute hypoxic respiratory failure and started on nebs, IV steroids and antibiotics. He made an improvement with resolution of his wheezing and his steroids were tapered to po. He was discharged in a stable condition (2) DVT prophylaxis Priority: Secondary Status: Acute Assessment and Plan: Heparin. (3) Schizoaffective disorder, bipolar type Priority: Secondary Status: Chronic Assessment and Plan: Continue home meds. (4) Chronic hepatitis C Priority: Secondary Status: Chronic Assessment and Plan: Outpatient follow up with GI Qualifiers: Hepatic coma status: without hepatic coma Qualified Code(s): B18.2 - Chronic viral hepatitis C (5) Diabetes mellitus Priority: Secondary Status: Chronic Assessment and Plan: Continue home insulin regimen Qualifiers: Diabetes mellitus type: type 2 Diabetes mellitus penitentiary insulin use: without penitentiary use Diabetes mellitus complication status: with hyperglycemia Qualified Code(s): E11.65 - Type 2 diabetes mellitus with hyperglycemia Hospital course: Mr. Sosa is a 62 year old male - Time Spent with Patient Total time spent providing and/or coordinating discharge services: - Discharge Medications Prescriptions: Albuterol Sulfate [Ventolin Hfa] 2 puff IH Q6H PRN #30 hfa.aer.ad PRN Reason: Shortness Of Breath Blood Sugar Diagnostic [Accu-Chek Guide Test Strip] 1 each ACHS #120 strip Budesonide/Formoterol 160/4.5 [Symbicort 160/4.5] 2 puff IH BID #30 inhaler PredniSONE [Marifer] 2.5 mg PO DAILY #30 tablet. predniSONE [PredniSONE] 40 mg PO DAILY #5 tablet Home Medications: Bisacodyl [Woman's Laxative] 10 mg PO DAILY PRN 07/07/17 [History] Docusate [Colace] 100 mg PO BID 07/07/17 [History] Omeprazole [PriLOSEC] 20 mg PO DAILY 07/07/17 [History] Ondansetron HCl [Zofran] 4 mg PO TID PRN 07/07/17 [History] Polyethylene Glycol 3350 [MiraLAX] 17 gm PO BID PRN 07/07/17 [History] Sildenafil Citrate [Viagra] 50 mg PO AD PRN 07/07/17 [History] Ipratropium/Albuterol Neb [Duoneb] 3 ml IH Q6H PRN #30 inhsol 07/22/17 [Rx] Aspirin Enteric Coated [Aspirin EC] 81 mg PO DAILY 08/23/17 [History] Oxygen 2.5 l .ROUTE AD 08/23/17 [History] Acetaminophen [Tylenol Arthritis] 650 mg PO Q6H PRN 11/22/17 [History] LORazepam [Ativan] 0.5 mg PO BID 11/22/17 [History] Melatonin/Pyridoxine HCl (B6) [Melatonin 3 mg Tablet] 6 mg PO HS PRN 11/22/17 [ History] OLANZapine [Zyprexa] 5 mg PO QAM 11/22/17 [History] OLANZapine [Zyprexa] 10 mg PO HS 11/22/17 [History] metFORMIN [Glucophage] 500 mg PO BID 11/22/17 [History] traZODone [TraZODone] 50 mg PO TID 11/22/17 [History] Metoprolol XL (24 HR) Succ [Toprol Xl] 12.5 mg PO DAILY #30 tab.er.24h 11/24/17 [Rx] Nicotine Patch [Nicoderm] 21 mg TD DAILY patch.td24 11/24/17 [Rx] predniSONE [PredniSONE] 40 mg PO DAILY #10 tablet 11/24/17 [Rx] Albuterol Sulfate [Ventolin Hfa] 2 puff IH Q6H PRN #30 hfa.aer.ad 11/30/17 [Rx] Blood Sugar Diagnostic [Accu-Chek Guide Test Strip] 1 each ACHS #120 strip [Rx] Budesonide/Formoterol 160/4.5 [Symbicort 160/4.5] 2 puff IH BID #30 inhaler [Rx] PredniSONE [Marifer] 2.5 mg PO DAILY #30 tablet. 11/30/17 [Rx] predniSONE [PredniSONE] 40 mg PO DAILY #5 tablet 11/30/17 [Rx] Allergies/Adverse Reactions: 3 Allergy/AdvReac Type Severity Reaction Status Date / Time haloperidol [From Haldol] AdvReac Muscle Pain Verified 11/21/17 18:09 [place] AdvReac Weakness Verified 11/21/17 18:09 Date of admission: 11/26/17 18:46 [facility] - Constitutional Vitals: Temp Pulse Resp BP Pulse Ox 98.4 F 90 16 122/87 100 11/30/17 07:12 11/30/17 07:12 11/30/17 07:12 11/30/17 07:12 11/30/17 07:12 General appearance: Present: A&O X 3, pleasant, no acute distress, answers questions appropriately - Head Head exam: Present: atraumatic, normocephalic - Eye Eye exam: Present: PERRL, conjuntiva pink, sclera anicteric Pupils: Present: PERRL - Neck Neck exam general surgery: Present: supple, trachea midline. Absent: lymphadenopathy - Respiratory Respiratory exam: Present: CTAB. Absent: accessory muscle use, rales, rhonchi, wheezes - Cardiovascular Cardiovascular exam: Present: RRR, +S1, +S2. Absent: diastolic murmur, gallop, rubs, systolic murmur - GI/Abdominal GI/Abdominal exam: Present: normal bowel sounds, soft, no peritoneal signs. Absent: distended, tenderness - Extremities Exam Extremities exam: Present: warm, radial pulses palpable and symmetrical. Absent : calf tenderness, cyanotic, pedal edema - Neurological Exam Neurological exam: Present: CN II-XII intact, oriented X3, no focal deficits. Absent: pronater drift, facial droop, speech deficit - Skin Skin exam: Present: dry, intact - Patient Status Disposition: Home, Self-Care - Discharge Instructions [facility] With: [facility] [Primary Care Provider] -
--- NOTE | 2017-11-30 08:25 | Physician Discharge Referral ---
Home Health/Hosp Referral Info Transfer to: Home Health - Diagnosis (1) Acute exacerbation of chronic obstructive airways disease Status: Acute (2) DVT prophylaxis Status: Acute (3) Schizoaffective disorder, bipolar type Status: Chronic (4) Chronic hepatitis C Status: Chronic (5) Diabetes mellitus Status: Chronic - Respiratory Orders Smoking Cessation: Smoking cessation has been advised. For more information, call the [place] Tobacco Quit Line at 2-775-UXWE-NOW. - Diet/Nutrition Diet/Nutrition Orders: Cardiac - Services Needed Following services are medically necessary services: Nursing, Home Health Aide, Physical Therapy - Transfer Medications Prescriptions: Albuterol Sulfate [Ventolin Hfa] 2 puff IH Q6H PRN #30 hfa.aer.ad PRN Reason: Shortness Of Breath Blood Sugar Diagnostic [Accu-Chek Guide Test Strip] 1 each ACHS #120 strip Budesonide/Formoterol 160/4.5 [Symbicort 160/4.5] 2 puff IH BID #30 inhaler PredniSONE [Marifer] 2.5 mg PO DAILY #30 tablet. predniSONE [PredniSONE] 40 mg PO DAILY #5 tablet Home Medications: Bisacodyl [Woman's Laxative] 10 mg PO DAILY PRN 07/07/17 [History] Docusate [Colace] 100 mg PO BID 07/07/17 [History] Omeprazole [PriLOSEC] 20 mg PO DAILY 07/07/17 [History] Ondansetron HCl [Zofran] 4 mg PO TID PRN 07/07/17 [History] Polyethylene Glycol 3350 [MiraLAX] 17 gm PO BID PRN 07/07/17 [History] Sildenafil Citrate [Viagra] 50 mg PO AD PRN 07/07/17 [History] Ipratropium/Albuterol Neb [Duoneb] 3 ml IH Q6H PRN #30 inhsol 07/22/17 [Rx] Aspirin Enteric Coated [Aspirin EC] 81 mg PO DAILY 08/23/17 [History] Oxygen 2.5 l .ROUTE AD 08/23/17 [History] Acetaminophen [Tylenol Arthritis] 650 mg PO Q6H PRN 11/22/17 [History] LORazepam [Ativan] 0.5 mg PO BID 11/22/17 [History] Melatonin/Pyridoxine HCl (B6) [Melatonin 3 mg Tablet] 6 mg PO HS PRN 11/22/17 [ History] OLANZapine [Zyprexa] 5 mg PO QAM 11/22/17 [History] OLANZapine [Zyprexa] 10 mg PO HS 11/22/17 [History] metFORMIN [Glucophage] 500 mg PO BID 11/22/17 [History] traZODone [TraZODone] 50 mg PO TID 11/22/17 [History] Metoprolol XL (24 HR) Succ [Toprol Xl] 12.5 mg PO DAILY #30 tab.er.24h 11/24/17 [Rx] Nicotine Patch [Nicoderm] 21 mg TD DAILY patch.td24 11/24/17 [Rx] predniSONE [PredniSONE] 40 mg PO DAILY #10 tablet 11/24/17 [Rx] Albuterol Sulfate [Ventolin Hfa] 2 puff IH Q6H PRN #30 hfa.aer.ad 11/30/17 [Rx] Blood Sugar Diagnostic [Accu-Chek Guide Test Strip] 1 each ACHS #120 strip [Rx] Budesonide/Formoterol 160/4.5 [Symbicort 160/4.5] 2 puff IH BID #30 inhaler [Rx] PredniSONE [Marifer] 2.5 mg PO DAILY #30 tablet. 11/30/17 [Rx] predniSONE [PredniSONE] 40 mg PO DAILY #5 tablet 11/30/17 [Rx] Allergies/Adverse Reactions: 3 Allergy/AdvReac Type Severity Reaction Status Date / Time haloperidol [From Haldol] AdvReac Muscle Pain Verified 11/21/17 18:09 [place] AdvReac Weakness Verified 11/21/17 18:09 Certification: Further, I certify that my clinical findings support that this patient is homebound (i.e. absences from home require considerable and taxing effort and are for medical reasons or amish services or infrequently or short duration when for other reasons) because: Homebound Reason: Patient requires assistance of a person or device to safely leave home Attestation: My signature below is to certify that this patient is under my care and that I, or nurse practitioner, or a physician's embroidery assistant working with me, has a face-to -face encounter with this patient.
[2017-11-30] MEDS: Nicotine 21 MG PATCH.TD24 TD SCH (08:36)
[2017-11-30] MEDS: *HR* Heparin 5,000 UNIT/ML VIAL SQ SCH (08:37)
[2017-11-30] MEDS: traZODone 50 MG TABLET PO SCH ×2 (08:37→16:13)
[2017-11-30] MEDS: predniSONE 20 MG TABLET PO SCH (08:37)
[2017-11-30] MEDS: *HR* LORazepam 2 MG/ML VIAL IVP PRN ×2 (08:37→16:13)
[2017-11-30] MEDS: OLANZapine 5 MG TAB.RAPDIS PO SCH (08:37)
[2017-11-30] MEDS: Metoprolol XL (24 HR) Succ 25 MG TAB.ER.24H PO SCH (08:37)
[2017-11-30] MEDS: Aspirin Enteric Coated 81 MG Tablet PO SCH (08:37)
== END 2017-11-30 17:12 | disposition home or self-care (01) | DRG 140 ==
LOC: EMEROO 13:55 → 2NENU 13:55
PROVIDERS: ADMIT Hospitalist; ATTEND Hospitalist

== ENCOUNTER 2017-12-09 00:15 | Inpatient (IN) ==
[2017-12-09] MEDS ORDERED: Ipratropium/Albuterol Neb 3 ML ONE (00:18)
[2017-12-09] MEDS ORDERED: methylPREDNISolone 125 MG/2 ML VIAL IVP ONE (00:21)
[2017-12-09] MEDS ORDERED: Ipratropium/Albuterol Neb 3 ML IH ONE (00:21)
--- NOTE | 2017-12-09 00:22 | Emergency Department Note ---
Disposition Clinical Impression: Lactic acidosis, COPD exacerbation, Elevated troponin Disposition: Admitted As Inpatient Condition: Good Time of Disposition: 03:35 SOB HPI - General Chief Complaint: ED Shortness of Breath/Dyspnea Stated Complaint: [place] Time Seen by Provider: 12/09/17 00:20 Source: patient Mode of arrival: ambulatory Limitations: no limitations Nursing Notes Reviewed: Yes Vital Signs Reviewed: Yes - History of Present Illness Patient is a 62-year-old male with past medical history of COPD, diabetes. He presents today due to shortness of breath. According to EMS, patient has frequent visits to the hospital due to shortness of breath, has BiPAP at home the patient states that he is not using it. Usually wears home O2 chronically. He was just recently admitted to the hospital within the past couple weeks. He states that over the past 2-3 hours, he slowly developed shortness of breath. Denies any chest pain, productive cough, abdominal pain, nausea, vomiting, fevers, diarrhea. He admits that he does have BiPAP at home but says that he did not use it, is not sure why he didn't but is aware how to use it. - Related Data Home Medications Medication Instructions Recorded Confirmed Bisacodyl [Woman's Laxative] 10 mg PO DAILY PRN 07/07/17 11/26/17 Docusate [Colace] 100 mg PO BID 07/07/17 11/26/17 Omeprazole [PriLOSEC] 20 mg PO DAILY 07/07/17 11/26/17 Ondansetron HCl [Zofran] 4 mg PO TID PRN 07/07/17 11/26/17 Polyethylene Glycol 3350 [MiraLAX] 17 gm PO BID PRN 07/07/17 11/26/17 Sildenafil Citrate [Viagra] 50 mg PO AD PRN 07/07/17 11/26/17 Aspirin Enteric Coated [Aspirin EC] 81 mg PO DAILY 08/23/17 11/26/17 Oxygen 2.5 l .ROUTE AD 08/23/17 11/26/17 Acetaminophen [Tylenol Arthritis] 650 mg PO Q6H PRN 11/22/17 11/26/17 LORazepam [Ativan] 0.5 mg PO BID 11/22/17 11/26/17 Melatonin/Pyridoxine HCl (B6) 6 mg PO HS PRN 11/22/17 11/26/17 [Melatonin 3 mg Tablet] OLANZapine [Zyprexa] 5 mg PO QAM 11/22/17 11/26/17 OLANZapine [Zyprexa] 10 mg PO HS 11/22/17 11/26/17 metFORMIN [Glucophage] 500 mg PO BID 11/22/17 11/26/17 traZODone [TraZODone] 50 mg PO TID 11/22/17 11/26/17 Previous Rx's Medication Instructions Recorded Ipratropium/Albuterol Neb [Duoneb] 3 ml IH Q6H PRN #30 inhsol 07/22/17 Metoprolol XL (24 HR) Succ [Toprol 12.5 mg PO DAILY #30 tab.er.24h 11/24/17 Xl] Nicotine Patch [Nicoderm] 21 mg TD DAILY patch.td24 11/24/17 predniSONE [PredniSONE] 40 mg PO DAILY #10 tablet 11/24/17 Albuterol Sulfate [Ventolin Hfa] 2 puff IH Q6H PRN #30 hfa.aer.ad 11/30/17 Blood Sugar Diagnostic [Accu-Chek 1 each ACHS #120 strip 11/30/17 Guide Test Strip] Budesonide/Formoterol 160/4.5 2 puff IH BID #30 inhaler 11/30/17 [Symbicort 160/4.5] PredniSONE [Marifer] 2.5 mg PO DAILY #30 tablet. 11/30/17 predniSONE [PredniSONE] 40 mg PO DAILY #5 tablet 11/30/17 Allergies Allergy/AdvReac Type Severity Reaction Status Date / Time haloperidol [From Haldol] AdvReac Muscle Pain Verified 12/09/17 00:19 [place] AdvReac Weakness Verified 12/09/17 00:19 All systems ED: reviewed and negative except as stated. Constitutional: Denies: fever Cardiovascular: Denies: chest pain Respiratory: Reports: dyspnea. Denies: cough Gastrointestinal: Denies: abdominal pain, nausea, vomiting, diarrhea Genitourinary: Denies: urgency, dysuria Integumentary: Denies: rash Neurological: Denies: headache, weakness, numbness, paresthesias Past Medical History - Past Medical History Attestation: Yes The following information was validated with the patient. Source: patient Medical history: Reports: COPD, diabetes, hepatitis, other Surgical history: Reports: cholecystectomy Psychiatric history: Reports: anxiety, bipolar, depression, schizophrenia - Social History Smoking Status: Current every day smoker Smokeless Tobacco Status: No Alcohol use: Reports: none Drug use: Reports: none Physical Exam - General Limitations: no limitations General appearance: alert, anxious - Head Head exam: atraumatic, normocephalic, normal inspection - Eye Eye exam: Present: normal appearance, PERRL, EOMI - ENT ENT exam: normal exam, normal oropharynx, mucous membranes moist - Neck Neck exam: Present: normal inspection, full ROM, trachea midline - Chest Chest inspection: Present: normal inspection, symmetric chest wall rise - Respiratory Respiratory exam: Present: respiratory distress (moderate), wheezes (decreased aeration and wheezing throughout) - Cardiovascular Cardiovascular exam: Present: tachycardia, irregular rhythm, normal heart sounds - Abdominal Exam Abdominal exam: Present: soft, Non-Tender. Absent: tenderness, distention, guarding, rebound, rigidity - Extremities Exam Extremities exam: Present: normal inspection, full ROM. Absent: tenderness, pedal edema - Neurological Exam Neurological exam: Present: alert, oriented X3 - Psychiatric Psychiatric exam: Present: normal affect, normal mood - Skin Skin exam: Present: warm, dry, intact, normal color Course Course Narrative: Patient is in A. fib RVR, will give Cardizem bolus and Cardizem drip. Patient was on CPAP on presentation, transitioned over to BiPAP here. Patient is given DuoNeb and Solu-Medrol. We will draw basic blood work, chest x-ray, EKG, troponin, cultures and lactate. We will give normal saline bolus and maintenance fluids. 03:25 patient had mild elevation in troponin at 0.04 this appears chronic, no acute ST changes on EKG. Pulse now on the 110s from 170s on presentation. Inital lactic 6, now in 3s. CT of the chest was negative for any PE or pneumonia. Patient remains on BiPAP at this time but does have improvement in work of breathing. We will admit to the hospitalist for further care. Vital Signs Temperature 99.4 F 12/09/17 00:20 Pulse Rate 174 12/09/17 00:20 Respiratory Rate 35 12/09/17 00:20 Blood Pressure 147/125 12/09/17 00:20 O2 Sat by Pulse Oximetry 99 12/09/17 00:20 Temperature 99.4 F 12/09/17 00:20 Pulse Rate 106 12/09/17 04:19 Respiratory Rate 28 12/09/17 04:19 Blood Pressure 74/55 12/09/17 04:19 O2 Sat by Pulse Oximetry 95 12/09/17 04:19 Oxygen Delivery Oxygen Delivery Nasal Cannula Shortness of Breath/Dyspnea - [place] Narrative Medical decision making narrative: Patient is in A. fib RVR, will give Cardizem bolus and Cardizem drip. Patient was on CPAP on presentation, transitioned over to BiPAP here. Patient is given DuoNeb and Solu-Medrol. We will draw basic blood work, chest x-ray, EKG, troponin, cultures and lactate. We will give normal saline bolus and maintenance fluids. 03:25 patient had mild elevation in troponin at 0.04 this appears chronic, no acute ST changes on EKG. Pulse now on the 110s from 170s on presentation. Inital lactic 6, now in 3s. CT of the chest was negative for any PE or pneumonia. Patient remains on BiPAP at this time but does have improvement in work of breathing. We will admit to the hospitalist for further care. - Medical Records Medical records reviewed: Yes I reviewed the patient's medical records. - Lab Data Lab results reviewed: Yes I reviewed the patient's lab results. Result diagrams: 12/09/17 00:42 12/09/17 00:42 Lab Results 12/09/17 12/09/17 12/09/17 Range/Units 00:42 00:42 00:42 WBC 8.3 (4.3-11.1) K/mcL RBC 4.48 (4.19-5.50) M/mcL Hgb 14.0 (12.9-16.9) g/dL Hct 40.2 (37.5-50.1) % MCV 89.7 (83.0-100.0) fL MCH 31.3 (28.0-33.3) pg MCHC 34.8 (31.6-35.5) g/dL RDW 12.4 (11.5-14.5) % Plt Count 107 L (140-400) K/mcL MPV 10.2 (9.4-12.4) fL Immature Gran % 1.2 (0-4) % Seg Neutrophils % 95.4 % Lymphocytes % 2.7 % Monocytes % 0.2 % Eosinophils % 0.5 % Basophils % 0.0 % Neutrophils # 7.9 (1.6-8.9) K/mcL Lymphocytes # 0.2 L (0.6-4.6) K/mcL Monocytes # 0.0 (0.0-1.3) K/mcL Eosinophils # 0.0 (0.0-0.6) K/mcL Basophils # 0.0 (0.0-0.2) K/mcL VBG pH (7.32-7.42) pH Units VBG pCO2 (41-51) mmHg VBG pO2 (25-50) mmHg VBG HCO3 (21-27) mEq/L Sodium 135 L (136-145) mEq/L Potassium 3.0 L (3.5-5.1) mEq/L Chloride 90 L (98-107) mEq/L Carbon Dioxide 32 H (23-29) mEq/L BUN 9 (8-23) mg/dL Creatinine 0.85 (0.70-1.30) mg/dL Est GFR ( Amer) > 60 (> 60) Est GFR (Non-Af Amer) > 60 (> 60) BUN/Creatinine Ratio 11 (6-26) Glucose 112 H (70-105) mg/dL Calculated Osmolality 279 L (280-300) Lactic Acid 6.7 H* (0.5-2.2) mmol/L Calcium 8.7 (8.6-10.3) mg/dL Phosphorus 2.5 L (2.7-4.5) mg/dL Magnesium 1.5 L (1.6-2.6) mg/dL Troponin I 0.04 H* (< 0.04) ng/mL B-Natriuretic Peptide (Less than 100) pg/mL TSH 0.991 (0.340-5.600) mcIU/mL 12/09/17 12/09/17 12/09/17 Range/Units 00:42 00:54 02:51 WBC (4.3-11.1) K/mcL RBC (4.19-5.50) M/mcL Hgb (12.9-16.9) g/dL Hct (37.5-50.1) % MCV (83.0-100.0) fL MCH (28.0-33.3) pg MCHC (31.6-35.5) g/dL RDW (11.5-14.5) % Plt Count (140-400) K/mcL MPV (9.4-12.4) fL Immature Gran % (0-4) % Seg Neutrophils % % Lymphocytes % % Monocytes % % Eosinophils % % Basophils % % Neutrophils # (1.6-8.9) K/mcL Lymphocytes # (0.6-4.6) K/mcL Monocytes # (0.0-1.3) K/mcL Eosinophils # (0.0-0.6) K/mcL Basophils # (0.0-0.2) K/mcL VBG pH 7.31 L (7.32-7.42) pH Units VBG pCO2 66 H (41-51) mmHg VBG pO2 39 (25-50) mmHg VBG HCO3 33 H (21-27) mEq/L Sodium (136-145) mEq/L Potassium (3.5-5.1) mEq/L Chloride (98-107) mEq/L Carbon Dioxide (23-29) mEq/L BUN (8-23) mg/dL Creatinine (0.70-1.30) mg/dL Est GFR ( Amer) (> 60) Est GFR (Non-Af Amer) (> 60) BUN/Creatinine Ratio (6-26) Glucose (70-105) mg/dL Calculated Osmolality (280-300) Lactic Acid 3.1 H (0.5-2.2) mmol/L Calcium (8.6-10.3) mg/dL Phosphorus (2.7-4.5) mg/dL Magnesium (1.6-2.6) mg/dL Troponin I (< 0.04) ng/mL B-Natriuretic Peptide 81 (Less than 100) pg/mL TSH (0.340-5.600) mcIU/mL - Radiology Data Radiology results reviewed: Yes I reviewed the patient's radiology results. Chest X-Ray 12/09/17 00:20 IMPRESSION: 1. No focal airspace disease 2. Stable lucency in the right lower lung likely reflect bullae. D/ / Neto Borrero MD / Neto Borrero MD Interpreting Provider: Neto Borrero MD Chest CTA 12/09/17 01:22 IMPRESSION: No evidence of pulmonary embolism or acute pulmonary abnormality. Moderate emphysema. 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 D/ / Neto Borrero MD / Neto Borrero MD Interpreting Provider: Neto Borrero MD - EKG Data EKG attestation: Yes I reviewed and interpreted this EKG. EKG results narrative: 12/09/2017 at 00:24. A. fib with RVR. Rate 175. QRS 86. QTc 355. Left axis deviation. No acute ST elevation or depression. EKG #2 12/09/2017 and 02:28. A. fib, rate 124. QRS 84. QTC 360. Normal axis. No acute ST elevation or depression. Possible right atrial enlargement due to enlarged P waves. S.B.A.R. - S.B.A.R. Situation: Demographics, MOA Background: Presenting Complaint, Relevant PMH, Meds, & Allergies Assessment: Vital Signs, Course and respsone to treatment, Exam Concerns, Patient/Family Expectation, Pertinant Lab Results, Outstanding Labs Recommendation: Barrier(s) to disposition, Recommendation based on pending studies, treatments, or consults S.B.A.R. Report Given to: Dr. Bermeo Attestation Statement - Attestation Attestation: I examined this patient and my medical decision-making was reviewed with the Resident Physician. I agree with the documented findings, disposition and treatment plan as described except to the extent set forth below. FIndings consistent with acute on chronic respiratory failure. Patient will be transitioned to bipap from prehospital cpap, will start steroids, bronchodilators, antibiotics, heparin for afib with rvr controlled with diltiazem. Patient will be admitted for further management. I spent greater than 35 minutes of critical care time resuscitating this acutely ill patient suffering from afib with rvr and hypoxia. This was excluding billable procedures.
[2017-12-09 00:55] LABS: Eosinophils % 0.5 %; Hematocrit 40.2 % (37.5-50.1); Immature Granulocytes % 1.2 % (0-4); Lymphocytes # 0.2 K/mcL (0.6-4.6); Lymphocytes % 2.7 %; Mean Corpuscular HGB Conc 34.8 g/dL (31.6-35.5); Mean Corpuscular Hemoglobin 31.3 pg (28.0-33.3); Mean Corpuscular Volume 89.7 fL (83.0-100.0); Mean Platelet Volume 10.2 fL (9.4-12.4); Monocytes % 0.2 %; Neutrophils # 7.9 K/mcL (1.6-8.9); Platelet Count 107 K/mcL (140-400); Red Blood Count 4.48 M/mcL (4.19-5.50); Red Cell Distribution Width 12.4 % (11.5-14.5); Segmented Neutrophils % 95.4 %
[2017-12-09 00:58] LABS: VBG HCO3 33 mEq/L (21-27); VBG PCO2 66 mmHg (41-51); VBG PH 7.31 pH Units (7.32-7.42); VBG PO2 39 mmHg (25-50)
[2017-12-09] MEDS ORDERED: 0.9 % Sodium Chloride 1,000 ML IVC ONE ×4 (01:10→06:45)
[2017-12-09 01:18] LABS: BUN/Creatinine Ratio 11 (6-26); Blood Urea Nitrogen 9 mg/dL (8-23); Calcium 8.7 mg/dL (8.6-10.3); Carbon Dioxide 32 mEq/L (23-29); Chloride 90 mEq/L (98-107); Glucose 112 mg/dL (70-105); Osmolality,Calculated 279 (280-300); Sodium 135 mEq/L (136-145); eGFR For African Americans > 60 (> 60); eGFR For Non-African Americans > 60 (> 60)
[2017-12-09 01:22] LABS: Troponin I 0.04 ng/mL (< 0.04)
[2017-12-09] MEDS ORDERED: Isovue-370 500 ML INFUS..BTL IV ONE (01:22)
[2017-12-09] MEDS: 0.9 % Sodium Chloride 1,000 ML IVC SCH ×3 (03:14→19:33)
[2017-12-09] MEDS ORDERED: *HR* Enoxaparin 80 MG/0.8 ML SYRINGE SQ STA (04:09)
[2017-12-09] MEDS ORDERED: Naloxone 0.4 MG/ML INJ IVP PRN (04:33)
[2017-12-09] MEDS ORDERED: Albuterol 2.5 MG/3 ML NEBULIZER IH PRN (04:39)
--- NOTE | 2017-12-09 04:44 | Event Note ---
Date of Encounter: 12/09/17 Time of Encounter: 04:36 Patient was seen and examined. I agree with the H&P as written by the Resident Physician. Briefly, patient with history of COPD on chronic O2, DM, HTN, CAD presents with sudden onset of shortness of breath a few hours prior to arrival. Temp around 100 per patient. Put on Bipap. Suspected to have afib/aflutter with RVR on EKG and put on cardizem drip. EKG is questionable as it is not an irregular rhythm. No history of afib. No documented hypoxia. Given multiple nebs and IV solumedrol and admitted afterwards. Imaging with nothing acute. Labs with trops of .04, K 3.0. Lactic acid initially 6.7 and is down to 3.1 after IV fluids in the ED. Patient is a/ox3 Tachycardic, S1, S2, Dimished breath sounds Abd soft, NT, ND, +BS No edema Will admit to hospitalist Treat COPD exacerbation with IV solumedrol and nebs O2 support and wean as tolerated IV azithro Replete K, check mag IV fluids Trend Lactic acid check TTE Trend cardiac enzymes No need for anti-coag as this is questionable afib and the patient is currently back to sinus. Episode is brief and is likely triggered by resp issues. DVT ppx
[2017-12-09] MEDS ORDERED: Dextrose Gel 15 GM/37.5 ML TUBE PO PRN ×2 (04:46)
[2017-12-09] MEDS ORDERED: *HR* Dextrose 50 % in Water (Syg) 50 ML SYRINGE IVP PRN (04:46)
[2017-12-09] MEDS ORDERED: D5% in Water 1,000 ML IVC PRN (04:46)
--- NOTE | 2017-12-09 04:48 | Internal Med History&Physical ---
Date of Encounter: 12/09/17 Time of Encounter: 04:46 Internal Medicine - H&P: HPI Chief complaint: Shortness of breath Admitted From: Home Plans for Post Hospital Care: Home History of present illness: Mr. Sosa is a 62 year old male history of COPD oxygen dependent on 3 L, hypertension, diabetes presents for evaluation of dyspnea. Patient states that he has been feeling short of breath over the past couple days. Notes that his dyspnea is worse with exertion. Patient does not feel as short of breath lying in bed. Patient denies any chest pain. Patient notes a nonproductive cough. Patient also had a subjective fever earlier today. Patient states that he has been using his inhaler continuously throughout the day. Patient reports that he does wear a mask at night to help with his breathing. Patient denies any abdominal pain. No nausea. No vomiting. No diaphoresis. Patient also states he has had decreased oral intake over the past couple days. Patient states that he just was not feeling hungry. Patient continues to produce urine. Patient denies any change in bowels. ED course included the patient being placed on noninvasive positive pressure ventilation receiving triple nebs as well as IV steroids. Patient was also found to be tachycardic into the 160-170s treated as A. fib RVR and given Cardizem bolus with drip. Patient's heart rate responded. Patient denied having any history of A. fib. Patient states that he is feeling better at the time of my examination as the patient was weaned from BiPAP to nasal cannula. Patient had a CTA of the chest which showed no focal infiltrates and findings consistent with COPD. patient was also noted have a lactic acidosis the lactate is 6.7. Patient was given fluid resuscitation with 2 L of crystalloid with repeat lactate trending down. Patient was also noted to have an elevated troponin of 0.[address] elevations. Past Med Surg Social Fam HX - Past Medical History Medical history: COPD, diabetes, hepatitis, other Psychiatric history: anxiety, bipolar, depression, schizophrenia - Past Surgical History Surgical History: cholecystectomy - Social History Smoking Status: Former smoker Smokeless Tobacco Status: No Alcohol use: none Drug use: none - Family History Mother Adopted: No Family Member Ethnicity: Non- Living Status: Hx Family Cardiac Disorders: Yes Hx Family Respiratory Disorders: Yes (dad emphezema) Hx Family Cancer: Yes (lung CA) Hx Family GI Disorders: No Hx Family Endocrine Disorder: Yes (DM) Hx Family Neuromuscular Disorders: No Hx Family Neurologic Disorders: No Hx Family HEENT Disorders: No Hx Family Autoimmune Disorders: No Father Adopted: No Family Member Ethnicity: Non- Living Status: Hx Family Cardiac Disorders: No Hx Family Respiratory Disorders: Yes Hx Family Cancer: Yes (Lung CA) Hx Family GI Disorders: No Hx Family Endocrine Disorder: No Hx Family Neuromuscular Disorders: No Hx Family Neurologic Disorders: No Hx Family HEENT Disorders: No Hx Family Autoimmune Disorders: No Brother Family Member Ethnicity: Non- Living Status: Still Living Hx Family Respiratory Disorders: Yes (Emphysema) Sister Family Member Ethnicity: Non- Living Status: Still Living Internal Medicine - H&P: Meds Bisacodyl [Woman's Laxative] 10 mg PO DAILY PRN 07/07/17 [History] Docusate [Colace] 100 mg PO BID 07/07/17 [History] Omeprazole [PriLOSEC] 20 mg PO DAILY 07/07/17 [History] Ondansetron HCl [Zofran] 4 mg PO TID PRN 07/07/17 [History] Polyethylene Glycol 3350 [MiraLAX] 17 gm PO BID PRN 07/07/17 [History] Sildenafil Citrate [Viagra] 50 mg PO AD PRN 07/07/17 [History] Ipratropium/Albuterol Neb [Duoneb] 3 ml IH Q6H PRN #30 inhsol 07/22/17 [Rx] Aspirin Enteric Coated [Aspirin EC] 81 mg PO DAILY 08/23/17 [History] Oxygen 2.5 l .ROUTE AD 08/23/17 [History] Acetaminophen [Tylenol Arthritis] 650 mg PO Q6H PRN 11/22/17 [History] LORazepam [Ativan] 0.5 mg PO BID 11/22/17 [History] Melatonin/Pyridoxine HCl (B6) [Melatonin 3 mg Tablet] 6 mg PO HS PRN 11/22/17 [ History] OLANZapine [Zyprexa] 5 mg PO QAM 11/22/17 [History] OLANZapine [Zyprexa] 10 mg PO HS 11/22/17 [History] metFORMIN [Glucophage] 500 mg PO BID 11/22/17 [History] traZODone [TraZODone] 50 mg PO TID 11/22/17 [History] Metoprolol XL (24 HR) Succ [Toprol Xl] 12.5 mg PO DAILY #30 tab.er.24h 11/24/17 [Rx] Nicotine Patch [Nicoderm] 21 mg TD DAILY patch.td24 11/24/17 [Rx] predniSONE [PredniSONE] 40 mg PO DAILY #10 tablet 11/24/17 [Rx] Albuterol Sulfate [Ventolin Hfa] 2 puff IH Q6H PRN #30 hfa.aer.ad 11/30/17 [Rx] Blood Sugar Diagnostic [Accu-Chek Guide Test Strip] 1 each ACHS #120 strip [Rx] Budesonide/Formoterol 160/4.5 [Symbicort 160/4.5] 2 puff IH BID #30 inhaler [Rx] PredniSONE [Marifer] 2.5 mg PO DAILY #30 tablet.dr 11/30/17 [Rx] predniSONE [PredniSONE] 40 mg PO DAILY #5 tablet 11/30/17 [Rx] 3 Allergy/AdvReac Type Severity Reaction Status Date / Time haloperidol [From Haldol] AdvReac Muscle Pain Verified 12/09/17 00:19 [place] AdvReac Weakness Verified 12/09/17 00:19 All Systems PM: A 10-system review of systems was performed and is negative for pertinent findings except as documented above in the HPI. - Constitutional Constitutional: as per HPI, fever(s) - Cardiovascular Cardiovascular ROS IM: as per HPI, dyspnea, dyspnea on exertion, no chest pain - Respiratory Respiratory: as per HPI, cough, dyspnea, dyspnea on exertion, no change in phlegm color - Gastrointestinal Gastrointestinal: as per HPI, no abdominal pain - Constitutional Vitals: Temp Pulse Resp BP Pulse Ox 99.4 F 111 21 88/60 94 12/09/17 00:20 12/09/17 03:29 12/09/17 03:29 12/09/17 03:29 12/09/17 03:29 General appearance: Present: cooperative, A&O X 3, no acute distress, obese - Head Head exam: Present: atraumatic, normal inspection, normocephalic - Eye Eye exam: Present: EOMI - ENT ENT exam: Present: mucous membranes moist - Neck Neck exam general surgery: Present: full ROM, normal inspection, supple - Respiratory Respiratory exam: Present: accessory muscle use, decreased breath sounds, prolonged expiratory phase. Absent: rhonchi, wheezes - Cardiovascular Cardiovascular exam: Present: +S1, +S2. Absent: systolic murmur - GI/Abdominal GI/Abdominal exam: Present: soft. Absent: tenderness - Extremities Exam Extremities exam: Present: normal inspection, warm. Absent: pedal edema - Neurological Exam Neurological exam: Present: alert, altered, CN II-XII intact, no focal deficits - Skin Skin exam: Present: dry, intact, normal color. Absent: rash Internal Med - H&P Results - Labs CBC & Chem 7: 12/09/17 00:42 12/09/17 00:42 - Assessment and plan (1) Acute exacerbation of chronic obstructive airways disease Current Visit: Yes Status: Acute Assessment and plan: Patient is complaining of shortness of breath and has an increased oxygen requirement. Patient was placed on noninvasive positive pressure ventilation and ultimately weaned to nasal cannula throughout the ED course. Patient was also found to be tachycardic. Leave the etiology of the tachycardia was related the patient's excessive albuterol use prehospital as well as throughout the ED stay. Patient had a CT scan of the chest which showed findings consistent with COPD. PLAN -Respiratory support- Titrate oxygen to 92-97% -Solumedrol 60mg q8h -Duonebs scheduled -Albuterol PRN -Patient states he would want to be intubated if respiratory status declined. -Azithromax for anti-inflammatory affect. (2) Elevated troponin Current Visit: Yes Status: Acute Assessment and plan: Troponin 0.04. Without ST elevation. Likely demand ischemia in the setting of the patient's tachycardia and respiratory distress. PLAN -Serial troponins -Echo pending (3) Lactic acidosis Current Visit: Yes Status: Acute Assessment and plan: Lactate 6.7. With repeat 3.1 following fluid resuscitation. Patient did state that these had decreased by mouth intake during this time. Patient does have metformin listed as a home medication over the patient's kidney function appeared to be preserved. Patient also had an excessive amount of beta stimulation which may increase the lactate. Patient lactate elevations not appear to be related to a septic source. Patient was started on antibiotics for COPD exacerbation. PLAN -IVFs -Trend lactate (4) Diabetes mellitus Current Visit: No Status: Chronic Assessment and plan: Patient has a history of diabetes. We will hold the patient's metformin as he did have a CT angios of the chest. Patient was placed on sliding scale insulin and will continue to monitor setting of steroid-induced hyperglycemia Qualifiers: Diabetes mellitus type: type 2 Diabetes mellitus peoplesoft hrms developer insulin use: without peoplesoft hrms developer use Diabetes mellitus complication status: with hyperglycemia Qualified Code(s): E11.65 - Type 2 diabetes mellitus with hyperglycemia (5) DVT prophylaxis Current Visit: No Status: Acute Assessment and plan: Subcutaneous heparin - Time Spent With Patient Total time spent is greater than 50% in coordination of care (as documented) at patient's floor/unit and/or counseling patient:
[2017-12-09] MEDS ORDERED: Acetaminophen 325 MG TABLET PO PRN (05:01)
[2017-12-09 05:14] LABS: Magnesium 1.5 mg/dL (1.6-2.6); Phosphorous 2.5 mg/dL (2.7-4.5)
[2017-12-09 05:27] LABS: Thyroid Stimulating Hormone 0.991 mcIU/mL (0.340-5.600)
[2017-12-09] MEDS ORDERED: Insulin LISPRO 300 UNITS/3 ML VIAL SQ SCH (06:00)
[2017-12-09] MEDS: *HR* Heparin 5,000 UNIT/ML VIAL SQ SCH ×2 (06:20→17:55)
[2017-12-09] MEDS: Azithromycin 500 MG in D5% in Water 250 ML IVPB SCH (06:20)
[2017-12-09] MEDS ORDERED: methylPREDNISolone 125 MG/2 ML VIAL IVP SCH (08:00)
[2017-12-09] MEDS: Aspirin Enteric Coated 81 MG Tablet PO SCH (08:20)
[2017-12-09] MEDS: Ipratropium/Albuterol Neb 3 ML IH SCH ×3 (10:13→21:54)
[2017-12-09] MEDS: *HR* LORazepam 0.5 MG TABLET PO PRN ×2 (10:35→17:55)
[2017-12-09] MEDS: Insulin LISPRO 300 UNITS/3 ML VIAL SQ SCH ×3 (12:28→21:12)
[2017-12-09] MEDS ORDERED: Perflutren Lipid Microsphere 1.3 ML in 0.9 % Sodium Chloride 8.7 ML IVP ONE (13:11)
--- NOTE | 2017-12-09 14:14 | Internal Med Progress Note ---
Date of Encounter: 12/09/17 Time of Encounter: 09:40 - Assessment and plan (1) Sepsis Current Visit: No Status: Resolved Assessment and plan: He does meet sepsis criteria with Tachycardia, elevated LA and source of inf as bronchitis cont IV hydration cont Duoneb Cont empirical abx Azithromycin Qualifiers: Sepsis type: methicillin susceptible Staphylococcus aureus Qualified Code(s ): A41.01 - Sepsis due to Methicillin susceptible Staphylococcus aureus (2) Bronchitis Current Visit: No Status: Acute Assessment and plan: mostly bacterial cont Azithromycin (3) Acute on chronic respiratory failure with hypoxemia Current Visit: No Status: Acute (4) Acute exacerbation of chronic obstructive airways disease Current Visit: Yes Status: Acute Assessment and plan: Improving start tapering steroids medically stable to transfer to tele cont Duoneb and O2 cont empirical abx Azithro (5) Tachycardia Current Visit: Yes Status: Acute Assessment and plan: Improving cont IV hdyration Started him on Metoprolol Cont him on anti anxiety medication (6) Elevated troponin Current Visit: Yes Status: Acute Assessment and plan: Demand ischemia stable trop @ 0.04 no further work up needed cont ASA and BB (7) Lactic acidosis Current Visit: Yes Status: Acute Assessment and plan: Due to sepsis with bronchitis cont IV hydration trending down (8) DVT prophylaxis Current Visit: No Status: Acute Assessment and plan: on SQ Heparin - Time Spent With Patient Total time spent is greater than 50% in coordination of care (as documented) at patient's floor/unit and/or counseling patient: - Subjective Interval history: Mr. Sosa is a 62 year old male history of COPD oxygen dependent on 3 L, hypertension, diabetes who admitted here several times with COPD exacerbation, recentlt discharge on 11/30/17 came back to ER with worsening SOB and CALDERÓN. He does have anxiety too. Patient was also found to be tachycardic into the 160- 170s and given Cardizem bolus with drip. Patient's heart rate responded in few minutes. Pt cardizem was discontinued. Patient denied having any history of A. fib. . patient was also noted have a lactic acidosis the lactate is 6.7. Patient was given fluid resuscitation with 2 L of crystalloid with repeat lactate trending down. Patient was also noted to have an elevated troponin of 0.[address] changes. Pt is alert, awake and O x 3. Looks anxious and asking for some anxiety medication. Denied any CP. Still has moderate SOB and CALDERÓN - Constitutional Vitals: Temp Pulse Resp BP Pulse Ox 98.5 F 103 20 80/53 97 12/09/17 11:23 12/09/17 11:55 12/09/17 11:23 12/09/17 11:23 12/09/17 11:23 General appearance: Present: cooperative, A&O X 3, no acute distress, obese - Head Head exam: Present: atraumatic, normal inspection - Neck Neck exam general surgery: Present: supple - Respiratory Respiratory exam: Present: decreased breath sounds, wheezes (moderate). Absent : rales, respiratory distress, rhonchi - Cardiovascular Cardiovascular exam: Present: RRR, +S1, +S2. Absent: systolic murmur, tachycardia - GI/Abdominal GI/Abdominal exam: Present: normal bowel sounds, soft. Absent: rebound, rigid, tenderness - Extremities Exam Extremities exam: Absent: calf tenderness, pedal edema, tenderness - Back Exam Back exam: Absent: CVA tenderness (L), CVA tenderness (R) - Neurological Exam Neurological exam: Present: alert, oriented X3 - Psychiatric Psychiatric exam: Present: anxious Internal Medicine: Result - Labs CBC & Chem 7: 12/09/17 00:42 12/09/17 00:42 Labs: Cardiac Enzymes 12/09/17 12/09/17 Range/Units 05:06 10:45 Troponin I 0.05 H* 0.04 H* (< 0.04) ng/mL Consult Discharge Plan - Plan [facility]errals: [facility] [Primary Care Provider] -
[2017-12-09] MEDS: MethylPREDNISolone 40 MG/ML VIAL IVP SCH (15:55)
--- NOTE | 2017-12-09 16:54 | Electrocardiograph Report ---
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
--- NOTE | 2017-12-09 16:59 | Electrocardiograph Report ---
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
--- NOTE | 2017-12-09 16:59 | Electrocardiograph Report ---
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
[2017-12-10] MEDS: MethylPREDNISolone 40 MG/ML VIAL IVP SCH ×3 (00:05→17:53)
[2017-12-10] MEDS: 0.9 % Sodium Chloride 1,000 ML IVC SCH ×2 (03:33→15:13)
[2017-12-10] MEDS: Ipratropium/Albuterol Neb 3 ML IH SCH ×4 (04:03→21:05)
[2017-12-10] MEDS: *HR* Heparin 5,000 UNIT/ML VIAL SQ SCH ×2 (04:53→17:53)
[2017-12-10] MEDS: *HR* LORazepam 0.5 MG TABLET PO PRN ×3 (04:54→23:16)
[2017-12-10] MEDS: Azithromycin 500 MG in D5% in Water 250 ML IVPB SCH (04:55)
[2017-12-10 06:19] LABS: Basophils % 0.1 %; Lymphocytes % 2.3 %
[2017-12-10 06:20] LABS: Hematocrit 28.3 % (37.5-50.1); Hemoglobin 9.4 g/dL (12.9-16.9); Immature Platelets 4.7 % (1.1-6.1); Lymphocytes # 0.4 K/mcL (0.6-4.6); Mean Corpuscular HGB Conc 33.2 g/dL (31.6-35.5); Mean Corpuscular Hemoglobin 29.8 pg (28.0-33.3); Mean Corpuscular Volume 89.8 fL (83.0-100.0); Mean Platelet Volume 11.6 fL (9.4-12.4); Monocytes # 0.6 K/mcL (0.0-1.3); Monocytes % 3.4 %; Neutrophils # 14.7 K/mcL (1.6-8.9); Red Blood Count 3.15 M/mcL (4.19-5.50); Red Cell Distribution Width 13.1 % (11.5-14.5); Segmented Neutrophils % 86.2 %
[2017-12-10 06:28] LABS: Platelet Count 50 K/mcL (140-400)
[2017-12-10 06:35] LABS: BUN/Creatinine Ratio 35 (6-26); Blood Urea Nitrogen 18 mg/dL (8-23); Calcium 7.4 mg/dL (8.6-10.3); Carbon Dioxide 29 mEq/L (23-29); Chloride 99 mEq/L (98-107); Glucose 253 mg/dL (70-105); Osmolality,Calculated 288 (280-300); Potassium 3.1 mEq/L (3.5-5.1); Sodium 134 mEq/L (136-145); eGFR For African Americans > 60 (> 60); eGFR For Non-African Americans > 60 (> 60)
[2017-12-10 06:57] LABS: Platelet Estimate Decreased (Normal); Toxic Granulation Present (Not Present)
[2017-12-10] MEDS: Insulin LISPRO 300 UNITS/3 ML VIAL SQ SCH ×4 (09:05→20:34)
[2017-12-10] MEDS: Aspirin Enteric Coated 81 MG Tablet PO SCH (09:08)
[2017-12-10] MEDS ORDERED: Nicotine 21 MG PATCH.TD24 TD SCH (12:30)
--- NOTE | 2017-12-10 15:33 | Internal Med Progress Note ---
Date of Encounter: 12/10/17 Time of Encounter: 14:00 - Assessment and plan (1) Sepsis Current Visit: No Status: Resolved Assessment and plan: He does meet sepsis criteria with Tachycardia, elevated LA and source of inf as bronchitis Improving d/c IVF cont Duoneb Cont empirical abx Azithromycin Qualifiers: Sepsis type: methicillin susceptible Staphylococcus aureus Qualified Code(s ): A41.01 - Sepsis due to Methicillin susceptible Staphylococcus aureus (2) Bronchitis Current Visit: No Status: Acute Assessment and plan: mostly bacterial cont Azithromycin (3) Acute on chronic respiratory failure with hypoxemia Current Visit: No Status: Acute (4) Acute exacerbation of chronic obstructive airways disease Current Visit: Yes Status: Acute Assessment and plan: Improving start tapering steroids cont Duoneb and O2 cont empirical abx Azithro Will use BiPAP as needed for SOB He does have chronic hypercapneic resp failure, he may get benefit with home BiPAP eval will do over night BiPAP study (5) Tachycardia Current Visit: Yes Status: Acute Assessment and plan: Improved Cont him on anti anxiety medication Held Metoprolol since his BP running slightly low (6) Elevated troponin Current Visit: Yes Status: Acute Assessment and plan: Demand ischemia stable trop @ 0.04 no further work up needed cont ASA and BB (7) Lactic acidosis Current Visit: Yes Status: Acute Assessment and plan: Due to sepsis with bronchitis trending down (8) DVT prophylaxis Current Visit: No Status: Acute Assessment and plan: on SQ Heparin - Time Spent With Patient Total time spent is greater than 50% in coordination of care (as documented) at patient's floor/unit and/or counseling patient: - Subjective Interval history: Mr. Sosa is a 62 year old male history of COPD oxygen dependent on 3 L, hypertension, diabetes who admitted here several times with COPD exacerbation, recentlt discharge on 11/30/17 came back to ER with worsening SOB and CALDERÓN. He does have anxiety too. Patient was also found to be tachycardic into the 160- 170s and given Cardizem bolus with drip. Patient's heart rate responded in few minutes. Pt cardizem was discontinued. Patient denied having any history of A. fib. . patient was also noted have a lactic acidosis the lactate is 6.7. Patient was given fluid resuscitation with 2 L of crystalloid with repeat lactate trending down. Patient was also noted to have an elevated troponin of 0.[address] changes. Pt is alert, awake and O x 3. feels better today. Still has moderate SOB and CALDERÓN. Sleeping with BiPAP on now. - Constitutional Vitals: Temp Pulse Resp BP Pulse Ox 97.5 F L 87 19 99/64 99 12/10/17 15:27 12/10/17 15:27 12/10/17 15:27 12/10/17 15:27 12/10/17 15:27 General appearance: Present: cooperative, A&O X 3, obese - Head Head exam: Present: atraumatic, normal inspection - Neck Neck exam general surgery: Present: supple - Respiratory Respiratory exam: Present: decreased breath sounds, respiratory distress (mild) , wheezes (moderate). Absent: rales, rhonchi - Cardiovascular Cardiovascular exam: Present: RRR, +S1, +S2. Absent: tachycardia - GI/Abdominal GI/Abdominal exam: Present: normal bowel sounds, soft. Absent: rebound, rigid, tenderness - Extremities Exam Extremities exam: Absent: calf tenderness, pedal edema, tenderness - Back Exam Back exam: Absent: CVA tenderness (L), CVA tenderness (R) - Neurological Exam Neurological exam: Present: alert, oriented X3 - Psychiatric Psychiatric exam: Present: anxious - Skin Skin exam: Absent: rash Internal Medicine: Result - Labs CBC & Chem 7: 12/10/17 05:36 12/10/17 05:36 Labs: Short CBC 12/10/17 Range/Units 05:36 WBC 17.1 H D (4.3-11.1) K/mcL Hgb 9.4 L D (12.9-16.9) g/dL Hct 28.3 L (37.5-50.1) % Plt Count 50 L D (140-400) K/mcL Neutrophils # 14.7 H (1.6-8.9) K/mcL BMP 12/10/17 05:36 Sodium 134 L Potassium 3.1 L Chloride 99 Carbon Dioxide 29 BUN 18 Creatinine 0.51 L Glucose 253 H Calcium 7.4 L Cardiac Enzymes 12/09/17 Range/Units 17:18 Troponin I 0.03 (< 0.04) ng/mL - Impressions Impressions Echocardiogram 12/09/17 04:43 Impressions: Technically challenging study with suboptimal windows. LV systolic function appears low normal to mildly reduced but is not well visualized in all views even with use of Definity. Mild left ventricular diastolic dysfunction. Normal right ventricular structure and function. Mild-moderate aortic regurgitation. Mild mitral regurgitation. Mild tricuspid regurgitation. Mild pulmonary hypertension. No evidence of PFO with agitated saline contrast. Left Ventricular Wall Motion: Rest Echo Findings All wall segments showed normal motion. Findings: Study Quality * Technically challenging study with suboptimal windows. ECG Findings * Normal sinus rhythm. Aorta * Normally sized aortic root. Left Ventricle * LV systolic function appears low normal to mildly reduced. * Mild left ventricular diastolic dysfunction. * Definity echo contrast was used. Right Ventricle * Normal right ventricular structure and function. Left Atrium * Normal left atrial size. Right Atrium * Normal right atrial size. Aortic Valve * No aortic stenosis. * Aortic valve not well visualized. * Mild-moderate aortic regurgitation. Mitral Valve * Normal mitral valve structure. * No mitral stenosis. * Mild mitral regurgitation. Tricuspid Valve * Tricuspid valve not well visualized. * Mild tricuspid regurgitation. * Estimated RA pressure is 8 mmHg. * Estimated RVSP is 35 mmHg. * Mild pulmonary hypertension. Pulmonic Valve * Pulmonic valve is not well visualized. Pulmonary Artery * Pulmonary artery not well visualized. Pericardium * There is no pericardial effusion present. Interatrial Septum * No evidence of PFO by color Doppler. * No evidence of PFO with agitated saline contrast. IVC * The IVC is not dilated. * < 50% respiratory change. Consult Discharge Plan - Plan [facility]errals: [facility] [Primary Care Provider] -
[2017-12-10 19:28] LABS: Adenovirus Not Detected (Not Detect); Bordetella Pertussis Not Detected (Not Detect); Chlamydophila pneumoniae Not Detected (Not Detect); Coronavirus 229E Not Detected (Not Detect); Coronavirus HKU1 Not Detected (Not Detect); Coronavirus NL63 Not Detected (Not Detect); Coronavirus OC43 Not Detected (Not Detect); Human Metapneumovirus Not Detected (Not Detect); Human Rhinovirus/Enterovirus Not Detected (Not Detect); Influenza A Subtype 2009 H1 Not Detected (Not Detect); Influenza A Untypeable Not Detected (Not Detect); Influenza B Not Detected (Not Detect); Mycoplasma pneumoniae Not Detected (Not Detect); Parainfluenza Virus 1 Not Detected (Not Detect); Parainfluenza Virus 2 Not Detected (Not Detect); Parainfluenza Virus 3 Not Detected (Not Detect); Parainfluenza Virus 4 Not Detected (Not Detect); Respiratory Syncytial Virus Not Detected (Not Detect)
[2017-12-11] MEDS: Ipratropium/Albuterol Neb 3 ML IH SCH ×6 (03:49→23:26)
[2017-12-11] MEDS: *HR* Heparin 5,000 UNIT/ML VIAL SQ SCH ×2 (05:37→16:50)
[2017-12-11] MEDS: MethylPREDNISolone 40 MG/ML VIAL IVP SCH (05:37)
[2017-12-11] MEDS: Azithromycin 500 MG in D5% in Water 250 ML IVPB SCH (05:37)
[2017-12-11 06:43] LABS: Mean Platelet Volume 11.1 fL (9.4-12.4)
[2017-12-11 06:45] LABS: Hematocrit 26.4 % (37.5-50.1); Immature Platelets 4.1 % (1.1-6.1); Mean Corpuscular HGB Conc 34.1 g/dL (31.6-35.5); Mean Corpuscular Hemoglobin 31.1 pg (28.0-33.3); Mean Corpuscular Volume 91.3 fL (83.0-100.0); Red Blood Count 2.89 M/mcL (4.19-5.50); Red Cell Distribution Width 12.8 % (11.5-14.5)
[2017-12-11 07:02] LABS: BUN/Creatinine Ratio 38 (6-26); Blood Urea Nitrogen 19 mg/dL (8-23); Calcium 7.9 mg/dL (8.6-10.3); Carbon Dioxide 30 mEq/L (23-29); Chloride 99 mEq/L (98-107); Glucose 409 mg/dL (70-105); Osmolality,Calculated 296 (280-300); Potassium 3.2 mEq/L (3.5-5.1); Sodium 133 mEq/L (136-145); eGFR For African Americans > 60 (> 60); eGFR For Non-African Americans > 60 (> 60)
[2017-12-11 07:50] LABS: Platelet Count 49 K/mcL (140-400)
--- NOTE | 2017-12-11 08:29 | Internal Med Progress Note ---
Date of Encounter: 12/11/17 Time of Encounter: 08:20 - Assessment and plan (1) Acute on chronic respiratory failure with hypoxemia Current Visit: No Status: Acute Assessment and plan: Continue BIPAP. see management for COPD (2) Acute exacerbation of chronic obstructive airways disease Current Visit: Yes Status: Acute Assessment and plan: Still has active wheezes this am. Increase dose of steroids. Increased nebs to q4. Added symbicort. Continue antibiotics (3) Elevated troponin Current Visit: Yes Status: Acute Assessment and plan: Demand ischemia stable trop @ 0.04 no further work up needed cont ASA and BB (4) DVT prophylaxis Current Visit: No Status: Acute Assessment and plan: on SQ Heparin (5) Bronchitis Current Visit: No Status: Acute Assessment and plan: mostly bacterial cont Azithromycin (6) Lactic acidosis Current Visit: Yes Status: Acute Assessment and plan: Due to sepsis with bronchitis trending down (7) Tachycardia Current Visit: Yes Status: Acute Assessment and plan: Improved Cont him on anti anxiety medication Held Metoprolol since his BP running slightly low - Time Spent With Patient Total time spent is greater than 50% in coordination of care (as documented) at patient's floor/unit and/or counseling patient: - Subjective Interval history: No acute events overnight - Constitutional Vitals: Temp Pulse Resp BP Pulse Ox 97.5 F L 97 19 110/70 99 12/11/17 07:17 12/11/17 07:17 12/11/17 07:17 12/11/17 07:17 12/11/17 07:17 General appearance: Present: cooperative, A&O X 3, obese - Head Head exam: Present: atraumatic, normocephalic - Eye Eye exam: Present: PERRL, conjuntiva pink, sclera anicteric Pupils: Present: PERRL - Neck Neck exam general surgery: Present: supple, trachea midline. Absent: lymphadenopathy - Respiratory Respiratory exam: Present: CTAB, wheezes. Absent: accessory muscle use, rales, rhonchi Additional comments: Still has active wheezes - Cardiovascular Cardiovascular exam: Present: RRR, +S1, +S2. Absent: diastolic murmur, gallop, rubs, systolic murmur - GI/Abdominal GI/Abdominal exam: Present: normal bowel sounds, soft, no peritoneal signs. Absent: distended, tenderness - Extremities Exam Extremities exam: Present: warm, radial pulses palpable and symmetrical. Absent : calf tenderness, cyanotic, pedal edema - Neurological Exam Neurological exam: Present: CN II-XII intact, oriented X3, no focal deficits. Absent: pronater drift, facial droop, speech deficit - Skin Skin exam: Present: dry, intact Internal Medicine: Result - Labs CBC & Chem 7: 12/11/17 06:28 12/11/17 06:28 Labs: Short CBC 12/11/17 Range/Units 06:28 WBC 13.1 H (4.3-11.1) K/mcL Hgb 9.0 L (12.9-16.9) g/dL Hct 26.4 L (37.5-50.1) % Plt Count 49 L (140-400) K/mcL [facility] 12/11/17 06:28 Sodium 133 L Potassium 3.2 L Chloride 99 Carbon Dioxide 30 H BUN 19 Creatinine 0.50 L Glucose 409 H Calcium 7.9 L Consult Discharge Plan - Plan Referrals: [facility] [Primary Care Provider] -
[2017-12-11] MEDS: Insulin LISPRO 300 UNITS/3 ML VIAL SQ SCH ×4 (08:38→20:02)
[2017-12-11] MEDS: Aspirin Enteric Coated 81 MG Tablet PO SCH (08:38)
[2017-12-11] MEDS: Nicotine 21 MG PATCH.TD24 TD SCH (08:39)
[2017-12-11] MEDS: *HR* LORazepam 0.5 MG TABLET PO PRN ×3 (08:45→23:55)
[2017-12-11] MEDS: Budesonide/Formoterol 160/4.5 MDI IH SCH ×2 (11:10→20:10)
[2017-12-11 11:25] LABS: Lymphocytes # 0.8 K/mcL (0.6-4.6); Neutrophils # 12.3 K/mcL (1.6-8.9)
[2017-12-11 11:26] LABS: Platelet Estimate Marked Decrease (Normal)
[2017-12-11] MEDS: methylPREDNISolone 125 MG/2 ML VIAL IVP SCH (15:10)
[2017-12-12] MEDS: methylPREDNISolone 125 MG/2 ML VIAL IVP SCH ×3 (00:56→15:12)
[2017-12-12] MEDS: Ipratropium/Albuterol Neb 3 ML IH SCH ×5 (04:10→19:24)
[2017-12-12] MEDS: Azithromycin 500 MG in D5% in Water 250 ML IVPB SCH (05:11)
[2017-12-12] MEDS: *HR* Heparin 5,000 UNIT/ML VIAL SQ SCH ×2 (05:11→17:00)
[2017-12-12] MEDS: Insulin LISPRO 300 UNITS/3 ML VIAL SQ SCH ×4 (07:27→22:42)
[2017-12-12] MEDS: *HR* LORazepam 0.5 MG TABLET PO PRN ×3 (07:27→23:42)
[2017-12-12] MEDS: Budesonide/Formoterol 160/4.5 MDI IH SCH ×2 (07:35→19:24)
--- NOTE | 2017-12-12 08:29 | Internal Med Progress Note ---
Date of Encounter: 12/12/17 Time of Encounter: 08:00 - Assessment and plan (1) Acute on chronic respiratory failure with hypoxemia Current Visit: No Status: Acute Assessment and plan: Continue BIPAP. see management for COPD (2) Acute exacerbation of chronic obstructive airways disease Current Visit: Yes Status: Acute Assessment and plan: Still has active wheezes this am. Continue nebs, IV steroids and antibiotics (3) Elevated troponin Current Visit: Yes Status: Acute Assessment and plan: Demand ischemia stable trop @ 0.04 no further work up needed cont ASA and BB (4) DVT prophylaxis Current Visit: No Status: Acute Assessment and plan: on SQ Heparin (5) Bronchitis Current Visit: No Status: Acute Assessment and plan: mostly bacterial cont Azithromycin (6) Lactic acidosis Current Visit: Yes Status: Acute Assessment and plan: Due to sepsis with bronchitis trending down (7) Tachycardia Current Visit: Yes Status: Acute Assessment and plan: Improved Cont him on anti anxiety medication Held Metoprolol since his BP running slightly low - Time Spent With Patient Total time spent is greater than 50% in coordination of care (as documented) at patient's floor/unit and/or counseling patient: - Subjective Interval history: No acute events overnight - Constitutional Vitals: Temp Pulse Resp BP Pulse Ox 97.6 F 97 18 133/84 97 12/12/17 07:28 12/12/17 07:28 12/12/17 07:28 12/12/17 07:28 12/12/17 07:28 General appearance: Present: cooperative, A&O X 3, obese - Head Head exam: Present: atraumatic, normocephalic - Eye Eye exam: Present: PERRL, conjuntiva pink, sclera anicteric Pupils: Present: PERRL - Neck Neck exam general surgery: Present: supple, trachea midline. Absent: lymphadenopathy - Respiratory Respiratory exam: Present: CTAB. Absent: accessory muscle use, rales, rhonchi, wheezes Additional comments: Positive wheezes and tightness - Cardiovascular Cardiovascular exam: Present: RRR, +S1, +S2. Absent: diastolic murmur, gallop, rubs, systolic murmur - GI/Abdominal GI/Abdominal exam: Present: normal bowel sounds, soft, no peritoneal signs. Absent: distended, tenderness - Extremities Exam Extremities exam: Present: warm, radial pulses palpable and symmetrical. Absent : calf tenderness, cyanotic, pedal edema - Neurological Exam Neurological exam: Present: CN II-XII intact, oriented X3, no focal deficits. Absent: pronater drift, facial droop, speech deficit - Skin Skin exam: Present: dry, intact Internal Medicine: Result - Labs CBC & Chem 7: 12/11/17 06:28 12/11/17 06:28 Labs: Short CBC 12/11/17 Range/Units 06:28 Neutrophils # 12.3 H (1.6-8.9) K/mcL Consult Discharge Plan - Plan Referrals: [facility] [Primary Care Provider] -
[2017-12-12] MEDS: Nicotine 21 MG PATCH.TD24 TD SCH (09:35)
[2017-12-12] MEDS: Aspirin Enteric Coated 81 MG Tablet PO SCH (09:36)
[2017-12-12 10:30] LABS: BUN/Creatinine Ratio 43 (6-26); Blood Urea Nitrogen 24 mg/dL (8-23); Calcium 8.5 mg/dL (8.6-10.3); Carbon Dioxide 31 mEq/L (23-29); Chloride 99 mEq/L (98-107); Glucose 332 mg/dL (70-105); Osmolality,Calculated 295 (280-300); Potassium 4.1 mEq/L (3.5-5.1); Sodium 134 mEq/L (136-145); eGFR For African Americans > 60 (> 60); eGFR For Non-African Americans > 60 (> 60)
[2017-12-13] MEDS: Ipratropium/Albuterol Neb 3 ML IH SCH ×7 (00:12→23:30)
[2017-12-13] MEDS: methylPREDNISolone 125 MG/2 ML VIAL IVP SCH ×3 (01:53→16:46)
[2017-12-13 05:26] LABS: Hematocrit 27.1 % (37.5-50.1); Hemoglobin 9.1 g/dL (12.9-16.9); Immature Granulocytes % 0.7 % (0-4); Immature Platelets 3.6 % (1.1-6.1); Lymphocytes # 0.3 K/mcL (0.6-4.6); Lymphocytes % 4.2 %; Mean Corpuscular HGB Conc 33.6 g/dL (31.6-35.5); Mean Corpuscular Hemoglobin 30.3 pg (28.0-33.3); Mean Corpuscular Volume 90.3 fL (83.0-100.0); Mean Platelet Volume 10.5 fL (9.4-12.4); Monocytes # 0.1 K/mcL (0.0-1.3); Monocytes % 1.5 %; Red Cell Distribution Width 12.4 % (11.5-14.5); Segmented Neutrophils % 93.6 %
[2017-12-13 05:34] LABS: Platelet Count 63 K/mcL (140-400)
[2017-12-13 05:43] LABS: BUN/Creatinine Ratio 63 (6-26); Blood Urea Nitrogen 27 mg/dL (8-23); Calcium 8.4 mg/dL (8.6-10.3); Carbon Dioxide 33 mEq/L (23-29); Chloride 100 mEq/L (98-107); Glucose 206 mg/dL (70-105); Osmolality,Calculated 297 (280-300); Potassium 4.4 mEq/L (3.5-5.1); Sodium 138 mEq/L (136-145); eGFR For African Americans > 60 (> 60); eGFR For Non-African Americans > 60 (> 60)
[2017-12-13] MEDS: *HR* LORazepam 0.5 MG TABLET PO PRN ×2 (06:12→21:25)
[2017-12-13] MEDS: *HR* Heparin 5,000 UNIT/ML VIAL SQ SCH ×2 (06:12→16:47)
--- NOTE | 2017-12-13 07:15 | Internal Med Progress Note ---
Date of Encounter: 12/13/17 Time of Encounter: 07:10 - Assessment and plan (1) Acute on chronic respiratory failure with hypoxemia Current Visit: No Status: Acute Assessment and plan: Continue BIPAP. see management for COPD (2) Acute exacerbation of chronic obstructive airways disease Current Visit: Yes Status: Acute Assessment and plan: Still has active wheezes this am. Continue nebs, IV steroids and antibiotics (3) Elevated troponin Current Visit: Yes Status: Acute Assessment and plan: Demand ischemia stable trop @ 0.04 no further work up needed cont ASA and BB (4) DVT prophylaxis Current Visit: No Status: Acute Assessment and plan: on SQ Heparin (5) Bronchitis Current Visit: No Status: Acute Assessment and plan: mostly bacterial cont Azithromycin (6) Lactic acidosis Current Visit: Yes Status: Acute Assessment and plan: Due to sepsis with bronchitis trending down - Time Spent With Patient Total time spent is greater than 50% in coordination of care (as documented) at patient's floor/unit and/or counseling patient: - Subjective Interval history: No acute events overnight - Constitutional Vitals: Temp Pulse Resp BP Pulse Ox 98.5 F 94 17 146/86 94 12/13/17 04:52 12/13/17 04:52 12/13/17 04:52 12/13/17 04:52 12/13/17 04:52 General appearance: Present: cooperative, A&O X 3, obese - Head Head exam: Present: atraumatic, normocephalic - Eye Eye exam: Present: PERRL, conjuntiva pink, sclera anicteric Pupils: Present: PERRL - Neck Neck exam general surgery: Present: supple, trachea midline. Absent: lymphadenopathy - Respiratory Respiratory exam: Present: CTAB, wheezes. Absent: accessory muscle use, rales, rhonchi Additional comments: Mild wheezes - Cardiovascular Cardiovascular exam: Present: RRR, +S1, +S2. Absent: diastolic murmur, gallop, rubs, systolic murmur - GI/Abdominal GI/Abdominal exam: Present: normal bowel sounds, soft, no peritoneal signs. Absent: distended, tenderness - Extremities Exam Extremities exam: Present: warm, radial pulses palpable and symmetrical. Absent : calf tenderness, cyanotic, pedal edema - Neurological Exam Neurological exam: Present: CN II-XII intact, oriented X3, no focal deficits. Absent: pronater drift, facial droop, speech deficit - Skin Skin exam: Present: dry, intact Internal Medicine: Result - Labs CBC & Chem 7: 12/13/17 04:58 12/13/17 04:58 Labs: Short CBC 12/13/17 Range/Units 04:58 WBC 7.5 (4.3-11.1) K/mcL Hgb 9.1 L (12.9-16.9) g/dL Hct 27.1 L (37.5-50.1) % Plt Count 63 L (140-400) K/mcL Neutrophils # 7.0 (1.6-8.9) K/mcL BMP 12/12/17 12/13/17 08:55 04:58 Sodium 134 L 138 Potassium 4.1 4.4 Chloride 99 100 Carbon Dioxide 31 H 33 H BUN 24 H 27 H Creatinine 0.56 L 0.43 L Glucose 332 H 206 H Calcium 8.5 L 8.4 L Consult Discharge Plan - Plan Referrals: [facility] [Primary Care Provider] -
[2017-12-13] MEDS: Budesonide/Formoterol 160/4.5 MDI IH SCH ×2 (07:30→20:28)
[2017-12-13] MEDS: Azithromycin 250 MG TABLET PO SCH (09:58)
[2017-12-13] MEDS: Nicotine 21 MG PATCH.TD24 TD SCH (09:59)
[2017-12-13] MEDS: Aspirin Enteric Coated 81 MG Tablet PO SCH (09:59)
[2017-12-13] MEDS: Insulin LISPRO 300 UNITS/3 ML VIAL SQ SCH ×4 (10:00→21:25)
--- NOTE | 2017-12-13 11:18 | Pulmonology Consult Note ---
Date of Encounter: 12/13/17 Time of Encounter: 09:00 Assessment and Plan (1) Acute exacerbation of chronic obstructive airways disease Current Visit: No Status: Acute Patient is started to feel better on current treatment. Recommend: Systemic steroid daily with plan to taper over 2 weeks antibiotic is acceptable Schedule DuoNeb's while inpatient every 6 hours Patient should have ongoing nebulizer with STEWART/KATERINA solution to be used q6 Hours Recommend continue Symbicort 160/4.52 puffs twice a day Walking pulse oximetry study. A discharge Advised patient to quit smoking Outpatient pulmonary follow-up 2-4 weeks at the time of discharge for further evaluation (2) Giant bullous emphysema Current Visit: Yes Status: Chronic This can be evaluated as outpatient by thoracic surgeon for possible resection that might improve dynamics of the pulmonary system. (3) PATIENCE and COPD overlap syndrome Current Visit: Yes Status: Chronic Advised patient to be compliance with his treatment of obstructive sleep apnea and COPD Advised patient to follow-up as outpatient for treatment with obstructive sleep apnea Plan of care discussed with the primary team and thank you for consultation (4) Tobacco abuse Current Visit: No Status: Chronic Advised patient to quit smoking History of Present Illness Consult date: 12/13/17 Requesting physician: Sharon De La Torre Reason for consult: COPD Chief complaint: Shortness of breath History of present illness: This is pleasant 62-year-old male with history of COPD on long-term oxygen therapy and also diagnosis of obstructive sleep apnea, however he is noncompliant with his treatment and also continue to smoke tobacco of presented to the hospital with worsening of shortness of breath. He started feeling better and he still feels he is not at his baseline. Patient denies any chest pain. Patient stated his breathing was getting worse for a few days and also has history of nonproductive cough and denies any hemoptysis. Patient denies any history of TB in the past. Patient found to be tachycardic and treated for A. fib RVR in the emergency room. He is been on BiPAP which is been helping him. Past Med Surg Social Fam HX - Past Medical History Medical history: COPD, diabetes, hepatitis, other Psychiatric history: anxiety, bipolar, depression, schizophrenia - Past Surgical History Surgical History: cholecystectomy - Social History Smoking Status: Current every day smoker Smokeless Tobacco Status: No Alcohol use: none Drug use: none - Family History Mother Adopted: No Family Member Ethnicity: Non- Living Status: Hx Family Cardiac Disorders: Yes Hx Family Respiratory Disorders: Yes (dad emphezema) Hx Family Cancer: Yes (lung CA) Hx Family GI Disorders: No Hx Family Endocrine Disorder: Yes (DM) Hx Family Neuromuscular Disorders: No Hx Family Neurologic Disorders: No Hx Family HEENT Disorders: No Hx Family Autoimmune Disorders: No Father Adopted: No Family Member Ethnicity: Non- Living Status: Hx Family Cardiac Disorders: No Hx Family Respiratory Disorders: Yes Hx Family Cancer: Yes (Lung CA) Hx Family GI Disorders: No Hx Family Endocrine Disorder: No Hx Family Neuromuscular Disorders: No Hx Family Neurologic Disorders: No Hx Family HEENT Disorders: No Hx Family Autoimmune Disorders: No Brother Family Member Ethnicity: Non- Living Status: Still Living Hx Family Respiratory Disorders: Yes (Emphysema) Sister Family Member Ethnicity: Non- Living Status: Still Living Medications and Allergies Bisacodyl [Woman's Laxative] 10 mg PO DAILY PRN 07/07/17 [History] Docusate [Colace] 100 mg PO BID 07/07/17 [History] Omeprazole [PriLOSEC] 20 mg PO DAILY 07/07/17 [History] Ondansetron HCl [Zofran] 4 mg PO TID PRN 07/07/17 [History] Polyethylene Glycol 3350 [MiraLAX] 17 gm PO BID PRN 07/07/17 [History] Sildenafil Citrate [Viagra] 50 mg PO AD PRN 07/07/17 [History] Aspirin Enteric Coated [Aspirin EC] 81 mg PO DAILY 08/23/17 [History] Oxygen 2.5 l .ROUTE AD 08/23/17 [History] Acetaminophen [Tylenol Arthritis] 650 mg PO Q6H PRN 11/22/17 [History] LORazepam [Ativan] 0.5 mg PO BID 11/22/17 [History] Melatonin/Pyridoxine HCl (B6) [Melatonin 3 mg Tablet] 6 mg PO HS PRN 11/22/17 [ History] OLANZapine [Zyprexa] 5 mg PO QAM 11/22/17 [History] OLANZapine [Zyprexa] 10 mg PO HS 11/22/17 [History] metFORMIN [Glucophage] 500 mg PO BID 11/22/17 [History] traZODone [TraZODone] 50 mg PO TID 11/22/17 [History] Metoprolol XL (24 HR) Succ [Toprol Xl] 12.5 mg PO DAILY #30 tab.er.24h 11/24/17 [Rx] Nicotine Patch [Nicoderm] 21 mg TD DAILY patch.td24 11/24/17 [Rx] Albuterol Sulfate [Ventolin Hfa] 2 puff IH Q6H PRN #30 hfa.aer.ad 11/30/17 [Rx] Budesonide/Formoterol 160/4.5 [Symbicort 160/4.5] 2 puff IH BID #30 inhaler [Rx] PredniSONE [Marifer] 2.5 mg PO DAILY #30 tablet. 11/30/17 [Rx] 3 Allergy/AdvReac Type Severity Reaction Status Date / Time haloperidol [From Haldol] AdvReac Muscle Pain Verified 12/09/17 00:19 [place] AdvReac Weakness Verified 12/09/17 00:19 All Systems: The remainder of the systems were reviewed and are negative Physical Examination Vital Signs: Vital Signs, Last 4 Hours Temp Pulse Resp BP Pulse Ox 12/13/17 09:44 97.6 F 99 16 146/86 99 12/13/17 07:33 16 95 General appearance: no acute distress Eyes: nonicteric ENT: oropharynx dry Mallampati (class): 4 Neck: supple, no lymphadenopathy Effort: mildly labored Inspection: other (Obese) Auscultation: bilateral: diminished breath sounds Percussion: bilateral: not dull Cardiovascular: regular rate and rhythm Gastrointestinal: normoactive bowel sounds, non-distended Extremities: no cyanosis, edema normal mental status, non-focal exam mood appropriate Results - Laboratory Findings CBC and BMP: 12/13/17 04:58 12/13/17 04:58 Abnormal lab findings: Abnormal lab results RBC 3.00 M/mcL (4.19-5.50) L 12/13/17 04:58 Hgb 9.1 g/dL (12.9-16.9) L 12/13/17 04:58 Hct 27.1 % (37.5-50.1) L 12/13/17 04:58 Plt Count 63 K/mcL (140-400) L 12/13/17 04:58 Band Neutrophils % 14.0 % (0-4) H 12/11/17 06:28 Lymphocytes # 0.3 K/mcL (0.6-4.6) L 12/13/17 04:58 Toxic Granulation Present (Not Present) A 12/10/17 05:36 Platelet Estimate Marked Decrease (Normal) L 12/11/17 06:28 VBG pH 7.31 pH Units (7.32-7.42) L 12/09/17 00:54 VBG pCO2 66 mmHg (41-51) H 12/09/17 00:54 VBG HCO3 33 mEq/L (21-27) H 12/09/17 00:54 Carbon Dioxide 33 mEq/L (23-29) H 12/13/17 04:58 BUN 27 mg/dL (8-23) H 12/13/17 04:58 Creatinine 0.43 mg/dL (0.70-1.30) L 12/13/17 04:58 BUN/Creatinine Ratio 63 (6-26) H 12/13/17 04:58 Glucose 206 mg/dL (70-105) H 12/13/17 04:58 POC Glucose 353 mg/dL (70-99) H 12/12/17 22:20 Calcium 8.4 mg/dL (8.6-10.3) L 12/13/17 04:58 Phosphorus 2.5 mg/dL (2.7-4.5) L 12/09/17 00:42 - Diagnostic Findings CT scan - chest: report reviewed, image reviewed - Clinical Findings Intake & Output: Intake & Output 12/12/17 12/13/17 12/13/17 23:59 07:59 15:59 Intake Total 480 / 480 0 / 0 Output Total 225 / 225 590 / 590 200 / 200 Balance 255 / 255 -590 / -590 -200 / -200 Weight 83.9 kg Consult Discharge Plan - Plan [facility]errals: [facility] [Primary Care Provider] -
[2017-12-14] MEDS: methylPREDNISolone 125 MG/2 ML VIAL IVP SCH (00:31)
[2017-12-14] MEDS: Ipratropium/Albuterol Neb 3 ML IH SCH ×6 (03:56→23:14)
[2017-12-14] MEDS: *HR* Heparin 5,000 UNIT/ML VIAL SQ SCH ×2 (05:34→16:20)
[2017-12-14] MEDS: *HR* LORazepam 0.5 MG TABLET PO PRN ×2 (05:39→16:19)
--- NOTE | 2017-12-14 07:25 | Pulmonology Progress Note ---
Date of Encounter: 12/14/17 Time of Encounter: 07:25 Assessment and Plan (1) Acute exacerbation of chronic obstructive airways disease Current Visit: No Status: Acute This is improving continue supplemental oxygen to keep saturation greater than 88% to around 92% Agree with IV steroids today likely can transition to prednisone to complete two -week taper in the next 24 hours Agree with azithromycin 5 days Continue bronchodilator coverage every 6 hours (duo nebs and (he should have this at home in nebulized form Continuation of Symbicort Outpatient pulmonary follow-up at the [facility] (2) Giant bullous emphysema Current Visit: Yes Status: Chronic Counseled the patient against flying high altitude or quick to sense such as diving He has an outpatient pulmonary follow-up with Dr. Bauer at the [facility] He may be a candidate for surgical resection He should be evaluated for alpha-1 antitrypsin disorder which I have ordered and can be followed up at the [facility] Patient continues to improve pulmonary will sign off please call with any questions Subjective Principal diagnosis: COPD exacerbation Interval history: Patient reports that his breathing is still "a little rough" his been able to come off BiPAP most of the time except when he sleeping at night for his underlying treatment of PATIENCE his back to his baseline home oxygen requirement Objective PUL Vital signs: Last Vital Signs Temp 98.3 F 12/14/17 03:44 Pulse 90 12/14/17 03:44 Resp 18 12/14/17 03:56 BP 144/85 12/14/17 03:44 Pulse Ox 98 12/14/17 03:56 General appearance: no acute distress Effort: mildly labored Auscultation: bilateral: diminished breath sounds Gastrointestinal: normoactive bowel sounds Extremities: no edema, no clubbing normal mental status, non-focal exam mood appropriate Results - Laboratory Findings CBC and BMP: 12/14/17 08:13 12/14/17 08:13 Abnormal lab findings: Abnormal lab results RBC 3.00 M/mcL (4.19-5.50) L 12/13/17 04:58 Hgb 9.1 g/dL (12.9-16.9) L 12/13/17 04:58 Hct 27.1 % (37.5-50.1) L 12/13/17 04:58 Plt Count 63 K/mcL (140-400) L 12/13/17 04:58 Band Neutrophils % 14.0 % (0-4) H 12/11/17 06:28 Lymphocytes # 0.3 K/mcL (0.6-4.6) L 12/13/17 04:58 Toxic Granulation Present (Not Present) A 12/10/17 05:36 Platelet Estimate Marked Decrease (Normal) L 12/11/17 06:28 VBG pH 7.31 pH Units (7.32-7.42) L 12/09/17 00:54 VBG pCO2 66 mmHg (41-51) H 12/09/17 00:54 VBG HCO3 33 mEq/L (21-27) H 12/09/17 00:54 Carbon Dioxide 33 mEq/L (23-29) H 12/13/17 04:58 BUN 27 mg/dL (8-23) H 12/13/17 04:58 Creatinine 0.43 mg/dL (0.70-1.30) L 12/13/17 04:58 BUN/Creatinine Ratio 63 (6-26) H 12/13/17 04:58 Glucose 206 mg/dL (70-105) H 12/13/17 04:58 POC Glucose 176 mg/dL (70-99) H 12/13/17 16:28 Calcium 8.4 mg/dL (8.6-10.3) L 12/13/17 04:58 Phosphorus 2.5 mg/dL (2.7-4.5) L 12/09/17 00:42 - Clinical Findings Intake & Output: Intake & Output 12/13/17 12/13/17 12/14/17 15:59 23:59 07:59 Intake Total 240 / 240 480 / 480 240 / 240 Output Total 500 / 500 200 / 200 550 / 550 Balance -260 / -260 280 / 280 -310 / -310 Weight 84.3 kg Consult Discharge Plan - Plan [facility]errals: [facility] [Primary Care Provider] -
--- NOTE | 2017-12-14 07:31 | Internal Med Progress Note ---
Date of Encounter: 12/14/17 Time of Encounter: 07:30 - Assessment and plan (1) Acute on chronic respiratory failure with hypoxemia Current Visit: No Status: Acute Assessment and plan: Continue BIPAP. see management for COPD (2) Acute exacerbation of chronic obstructive airways disease Current Visit: Yes Status: Acute Assessment and plan: Still has active wheezes this am. Continue nebs, IV steroids and antibiotics. Seen by pulmonary. Recommend slow steroid taper over 2 weeks on discharge. Also noted to have a giant buloous emphysema by pulmonary which will be further evaluated outpatient (3) Giant bullous emphysema Current Visit: Yes Status: Chronic Assessment and plan: Plan for outpatient evaluation per CT surgery (4) Elevated troponin Current Visit: Yes Status: Acute Assessment and plan: Demand ischemia stable trop @ 0.04 no further work up needed cont ASA and BB (5) DVT prophylaxis Current Visit: No Status: Acute Assessment and plan: on SQ Heparin (6) Bronchitis Current Visit: No Status: Acute Assessment and plan: mostly bacterial cont Azithromycin (7) Lactic acidosis Current Visit: Yes Status: Acute Assessment and plan: Due to sepsis with bronchitis trending down - Time Spent With Patient Total time spent is greater than 50% in coordination of care (as documented) at patient's floor/unit and/or counseling patient: - Subjective Interval history: No acute events overnight - Constitutional Vitals: Temp Pulse Resp BP Pulse Ox 98.3 F 90 18 144/85 98 12/14/17 03:44 12/14/17 03:44 12/14/17 03:56 12/14/17 03:44 12/14/17 03:56 General appearance: Present: cooperative, A&O X 3, obese - Head Head exam: Present: atraumatic, normocephalic - Eye Eye exam: Present: PERRL, conjuntiva pink, sclera anicteric Pupils: Present: PERRL - Neck Neck exam general surgery: Present: supple, trachea midline. Absent: lymphadenopathy - Respiratory Respiratory exam: Absent: accessory muscle use, rales, rhonchi, wheezes Additional comments: Scattered wheezes - Cardiovascular Cardiovascular exam: Present: RRR, +S1, +S2. Absent: diastolic murmur, gallop, rubs, systolic murmur - GI/Abdominal GI/Abdominal exam: Present: normal bowel sounds, soft, no peritoneal signs. Absent: distended, tenderness - Extremities Exam Extremities exam: Present: warm, radial pulses palpable and symmetrical. Absent : calf tenderness, cyanotic, pedal edema - Neurological Exam Neurological exam: Present: CN II-XII intact, oriented X3, no focal deficits. Absent: pronater drift, facial droop, speech deficit - Skin Skin exam: Present: dry, intact Internal Medicine: Result - Labs CBC & Chem 7: 12/13/17 04:58 12/13/17 04:58 Consult Discharge Plan - Plan [facility]errals: [facility] [Primary Care Provider] -
[2017-12-14] MEDS: Budesonide/Formoterol 160/4.5 MDI IH SCH ×2 (07:40→19:51)
[2017-12-14] MEDS: Nicotine 21 MG PATCH.TD24 TD SCH (08:37)
[2017-12-14] MEDS: Aspirin Enteric Coated 81 MG Tablet PO SCH (08:38)
[2017-12-14] MEDS: Azithromycin 250 MG TABLET PO SCH (08:38)
[2017-12-14] MEDS: Insulin LISPRO 300 UNITS/3 ML VIAL SQ SCH ×4 (08:38→21:17)
[2017-12-14 08:47] LABS: Hemoglobin 9.8 g/dL (12.9-16.9); Immature Granulocytes % 1.3 % (0-4); Immature Platelets 3.5 % (1.1-6.1); Lymphocytes # 0.3 K/mcL (0.6-4.6); Lymphocytes % 9.4 %; Mean Corpuscular HGB Conc 33.8 g/dL (31.6-35.5); Mean Corpuscular Hemoglobin 30.4 pg (28.0-33.3); Mean Corpuscular Volume 90.1 fL (83.0-100.0); Mean Platelet Volume 11.1 fL (9.4-12.4); Monocytes # 0.1 K/mcL (0.0-1.3); Monocytes % 2.7 %; Neutrophils # 2.6 K/mcL (1.6-8.9); Red Blood Count 3.22 M/mcL (4.19-5.50); Red Cell Distribution Width 12.5 % (11.5-14.5); Segmented Neutrophils % 86.6 %
[2017-12-14 08:49] LABS: Platelet Count 66 K/mcL (140-400)
[2017-12-14 09:06] LABS: BUN/Creatinine Ratio 58 (6-26); Blood Urea Nitrogen 28 mg/dL (8-23); Calcium 8.5 mg/dL (8.6-10.3); Carbon Dioxide 34 mEq/L (23-29); Chloride 97 mEq/L (98-107); Glucose 266 mg/dL (70-105); Osmolality,Calculated 297 (280-300); Sodium 136 mEq/L (136-145); eGFR For African Americans > 60 (> 60); eGFR For Non-African Americans > 60 (> 60)
[2017-12-14 09:22] LABS: Potassium 4.5 mEq/L (3.5-5.1)
[2017-12-14] MEDS: MethylPREDNISolone 40 MG/ML VIAL IVP SCH (16:20)
[2017-12-15] MEDS: *HR* LORazepam 0.5 MG TABLET PO PRN ×4 (00:04→22:23)
[2017-12-15] MEDS: Ipratropium/Albuterol Neb 3 ML IH SCH ×5 (03:47→19:54)
[2017-12-15] MEDS: *HR* Heparin 5,000 UNIT/ML VIAL SQ SCH ×2 (05:46→16:45)
[2017-12-15] MEDS: MethylPREDNISolone 40 MG/ML VIAL IVP SCH ×2 (05:46→16:45)
[2017-12-15 06:53] LABS: Hemoglobin 9.7 g/dL (12.9-16.9); Immature Granulocytes % 2.7 % (0-4); Lymphocytes # 0.5 K/mcL (0.6-4.6); Mean Corpuscular HGB Conc 34.6 g/dL (31.6-35.5); Mean Corpuscular Hemoglobin 30.9 pg (28.0-33.3); Mean Corpuscular Volume 89.2 fL (83.0-100.0); Mean Platelet Volume 10.7 fL (9.4-12.4); Monocytes # 0.2 K/mcL (0.0-1.3); Monocytes % 6.9 %; Neutrophils # 2.5 K/mcL (1.6-8.9); Red Blood Count 3.14 M/mcL (4.19-5.50); Red Cell Distribution Width 12.4 % (11.5-14.5); Segmented Neutrophils % 75.4 %
[2017-12-15 06:54] LABS: Platelet Count 81 K/mcL (140-400)
[2017-12-15 07:07] LABS: BUN/Creatinine Ratio 49 (6-26); Blood Urea Nitrogen 22 mg/dL (8-23); Calcium 8.5 mg/dL (8.6-10.3); Carbon Dioxide 38 mEq/L (23-29); Chloride 95 mEq/L (98-107); Glucose 199 mg/dL (70-105); Osmolality,Calculated 289 (280-300); Potassium 4.3 mEq/L (3.5-5.1); Sodium 135 mEq/L (136-145); eGFR For African Americans > 60 (> 60); eGFR For Non-African Americans > 60 (> 60)
[2017-12-15] MEDS: Budesonide/Formoterol 160/4.5 MDI IH SCH ×2 (07:39→19:54)
--- NOTE | 2017-12-15 08:29 | Discharge Summary ---
- NOTES TO OUTPATIENT PROVIDER Notes to Outpatient Provider: Follow up with outpatient pulmonary provider for giant bullous lesion Orders not resulted at time of discharge: Pending orders 12/10/17 15:34 Culture,Sputum with Gram Stain [RM] Stat 12/14/17 10:16 Alpha-1-AT Deficiency Reflex Routine 12/16/17 04:00 Basic Metabolic Panel AM 0400 CBC [Complete Blood Count] [HEME] AM 0400 12/17/17 04:00 Basic Metabolic Panel AM 0400 CBC [Complete Blood Count] [HEME] AM 0400 12/18/17 04:00 Basic Metabolic Panel AM 0400 CBC [Complete Blood Count] [HEME] AM 0400 Date of Encounter: 12/15/17 Time of Encounter: 08:30 - Discharge Diagnosis (1) Acute on chronic respiratory failure with hypoxemia Priority: Primary Status: Acute Assessment and Plan: 62 year old male history of COPD oxygen dependent on 3 L, hypertension, diabetes presents for evaluation of dyspnea. Patient states that he had been feeling short of breath over the past couple days. He has had multiple admissions for acute COPD exacerbation. He was started on nebs,steroids and antibiotics and BIPAP but continued to have active wheezes so his dose of steroids was increased. He began to recover gradually and we weaned down his steroids. Due to his recurrent exacerbations, pulmonary was consulted who noted he has a large bullous emphysema that may need to be resected by a thoracic surgeon to improve his respiratory dynamics. He will also be worked up for alpha 1 antitrypsin disorder. He was feeling much better this am with xygenation levels back to baseline and was told he will be discharged, however patient says he misplaced his keys and may not be able to get into his apartment. Nursing staff/social work was notified and discharge order was placed. He will be discharged on a steroid taper and a course of azithromycin (2) Acute exacerbation of chronic obstructive airways disease Priority: Secondary Status: Acute Assessment and Plan: Still has active wheezes this am. Continue nebs, IV steroids and antibiotics. Seen by pulmonary. Recommend slow steroid taper over 2 weeks on discharge. Also noted to have a giant buloous emphysema by pulmonary which will be further evaluated outpatient (3) Giant bullous emphysema Priority: Secondary Status: Chronic (4) Elevated troponin Priority: Secondary Status: Acute (5) DVT prophylaxis Priority: Secondary Status: Acute (6) Bronchitis Priority: Secondary Status: Acute (7) Lactic acidosis Priority: Secondary Status: Acute Hospital course: Mr. Sosa is a 62 year old male - Time Spent with Patient Total time spent providing and/or coordinating discharge services: - Discharge Medications Prescriptions: Azithromycin [Zithromax] 500 mg PO Q24H #5 tablet predniSONE [PredniSONE] 10 mg PO DAILY #4 tablet predniSONE [PredniSONE] 20 mg PO DAILY #4 tablet predniSONE [PredniSONE] 40 mg PO DAILY #8 tablet predniSONE [PredniSONE] 5 mg PO DAILY #4 tablet Home Medications: Bisacodyl [Woman's Laxative] 10 mg PO DAILY PRN 07/07/17 [History] Docusate [Colace] 100 mg PO BID 07/07/17 [History] Omeprazole [PriLOSEC] 20 mg PO DAILY 07/07/17 [History] Ondansetron HCl [Zofran] 4 mg PO TID PRN 07/07/17 [History] Polyethylene Glycol 3350 [MiraLAX] 17 gm PO BID PRN 07/07/17 [History] Sildenafil Citrate [Viagra] 50 mg PO AD PRN 07/07/17 [History] Aspirin Enteric Coated [Aspirin EC] 81 mg PO DAILY 08/23/17 [History] Oxygen 2.5 l .ROUTE AD 08/23/17 [History] Acetaminophen [Tylenol Arthritis] 650 mg PO Q6H PRN 11/22/17 [History] LORazepam [Ativan] 0.5 mg PO BID 11/22/17 [History] Melatonin/Pyridoxine HCl (B6) [Melatonin 3 mg Tablet] 6 mg PO HS PRN 11/22/17 [ History] OLANZapine [Zyprexa] 5 mg PO QAM 11/22/17 [History] OLANZapine [Zyprexa] 10 mg PO HS 11/22/17 [History] metFORMIN [Glucophage] 500 mg PO BID 11/22/17 [History] traZODone [TraZODone] 50 mg PO TID 11/22/17 [History] Metoprolol XL (24 HR) Succ [Toprol Xl] 12.5 mg PO DAILY #30 tab.er.24h 11/24/17 [Rx] Nicotine Patch [Nicoderm] 21 mg TD DAILY patch.td24 11/24/17 [Rx] Albuterol Sulfate [Ventolin Hfa] 2 puff IH Q6H PRN #30 hfa.aer.ad 11/30/17 [Rx] Budesonide/Formoterol 160/4.5 [Symbicort 160/4.5] 2 puff IH BID #30 inhaler [Rx] PredniSONE [Marifer] 2.5 mg PO DAILY #30 tablet.dr 11/30/17 [Rx] Azithromycin [Zithromax] 500 mg PO Q24H #5 tablet 12/15/17 [Rx] predniSONE [PredniSONE] 5 mg PO DAILY #4 tablet 12/15/17 [Rx] predniSONE [PredniSONE] 10 mg PO DAILY #4 tablet 12/15/17 [Rx] predniSONE [PredniSONE] 20 mg PO DAILY #4 tablet 12/15/17 [Rx] predniSONE [PredniSONE] 40 mg PO DAILY #8 tablet 12/15/17 [Rx] Allergies/Adverse Reactions: 3 Allergy/AdvReac Type Severity Reaction Status Date / Time haloperidol [From Haldol] AdvReac Muscle Pain Verified 12/09/17 00:19 [place] AdvReac Weakness Verified 12/09/17 00:19 Date of admission: 12/09/17 04:06 Primary care physician: [facility] Consults: 12/13/17 08:36 Consult to Pulmonology [CONS] Routine Consulting Provider: [facility] [place] Reason for Consult: acute copd exacerbation with multiple admissions Call Completed: Yes 12/14/17 09:45 Consult to Palliative Care [CONS] Routine Comment: Consulting Provider: [facility] [place] Reason for Consult: goals of care Call Completed: Yes - Constitutional Vitals: Temp Pulse Resp BP Pulse Ox 98.5 F 78 16 162/87 99 12/15/17 06:56 12/15/17 06:56 12/15/17 07:39 12/15/17 06:56 12/15/17 07:39 General appearance: Present: cooperative, A&O X 3, obese - Patient Status Disposition: Home, Self-Care - Discharge Instructions Follow Up With: [facility] [Primary Care Provider] -
[2017-12-15] MEDS: Insulin LISPRO 300 UNITS/3 ML VIAL SQ SCH ×4 (08:43→21:19)
[2017-12-15] MEDS: Aspirin Enteric Coated 81 MG Tablet PO SCH (08:43)
[2017-12-15] MEDS: Azithromycin 250 MG TABLET PO SCH (08:43)
[2017-12-15] MEDS: Nicotine 21 MG PATCH.TD24 TD SCH (08:44)
[2017-12-15] MEDS: methylPREDNISolone 125 MG/2 ML VIAL IVP SCH (21:12)
[2017-12-16] MEDS: Ipratropium/Albuterol Neb 3 ML IH SCH ×5 (03:40→15:14)
[2017-12-16 04:31] LABS: Basophils % 0.2 %; Hematocrit 28.6 % (37.5-50.1); Hemoglobin 9.8 g/dL (12.9-16.9); Immature Granulocytes % 4.8 % (0-4); Lymphocytes # 0.4 K/mcL (0.6-4.6); Lymphocytes % 9.1 %; Mean Corpuscular HGB Conc 34.3 g/dL (31.6-35.5); Mean Corpuscular Hemoglobin 30.6 pg (28.0-33.3); Mean Corpuscular Volume 89.4 fL (83.0-100.0); Monocytes # 0.2 K/mcL (0.0-1.3); Monocytes % 5.2 %; Neutrophils # 3.7 K/mcL (1.6-8.9); Platelet Count 98 K/mcL (140-400); Red Cell Distribution Width 12.4 % (11.5-14.5); Segmented Neutrophils % 80.7 %
[2017-12-16 04:52] LABS: BUN/Creatinine Ratio 69 (6-26); Blood Urea Nitrogen 27 mg/dL (8-23); Calcium 8.3 mg/dL (8.6-10.3); Carbon Dioxide 35 mEq/L (23-29); Chloride 92 mEq/L (98-107); Glucose 272 mg/dL (70-105); Osmolality,Calculated 287 (280-300); Potassium 4.3 mEq/L (3.5-5.1); Sodium 131 mEq/L (136-145); eGFR For African Americans > 60 (> 60); eGFR For Non-African Americans > 60 (> 60)
[2017-12-16] MEDS: MethylPREDNISolone 40 MG/ML VIAL IVP SCH (06:24)
[2017-12-16] MEDS: *HR* Heparin 5,000 UNIT/ML VIAL SQ SCH (06:25)
[2017-12-16] MEDS: Budesonide/Formoterol 160/4.5 MDI IH SCH (07:40)
[2017-12-16] MEDS: Nicotine 21 MG PATCH.TD24 TD SCH (07:46)
[2017-12-16] MEDS: Aspirin Enteric Coated 81 MG Tablet PO SCH (07:46)
[2017-12-16] MEDS: Azithromycin 250 MG TABLET PO SCH (07:46)
[2017-12-16] MEDS: Insulin LISPRO 300 UNITS/3 ML VIAL SQ SCH ×2 (07:46→11:56)
[2017-12-16] MEDS: *HR* LORazepam 0.5 MG TABLET PO PRN (11:56)
[2017-12-16 11:57] VITALS: BP 126/73
--- NOTE | 2017-12-16 12:01 | Internal Med Progress Note ---
Date of Encounter: 12/16/17 Time of Encounter: 11:59 - Assessment and plan (1) Elevated troponin Current Visit: Yes Status: Resolved Assessment and plan: Demand ischemia stable trop @ 0.04 no further work up needed cont ASA and BB (2) Acute on chronic respiratory failure with hypoxemia Current Visit: Yes Status: Acute Assessment and plan: 62 year old male history of COPD oxygen dependent on 3 L, hypertension, diabetes presents for evaluation of dyspnea. Patient states that he had been feeling short of breath over the past couple days. He has had multiple admissions for acute COPD exacerbation. He was started on nebs,steroids and antibiotics and BIPAP but continued to have active wheezes so his dose of steroids was increased. He began to recover gradually and we weaned down his steroids. Due to his recurrent exacerbations, pulmonary was consulted who noted he has a large bullous emphysema that may need to be resected by a thoracic surgeon to improve his respiratory dynamics. He will also be worked up for alpha 1 antitrypsin disorder. He was feeling much better this am with oxygenation levels back to baseline he has completed a course of azithro Change solumedrol to prednisone For discharge when socially cleared (3) DVT prophylaxis Current Visit: Yes Status: Acute Assessment and plan: on SQ Heparin, continue same (4) Bronchitis Current Visit: Yes Status: Acute Assessment and plan: mostly bacterial has completed Azithromycin (5) Acute exacerbation of chronic obstructive airways disease Current Visit: Yes Status: Acute Assessment and plan: Still has active wheezes this am. Continue nebs, IV steroids and antibiotics. Seen by pulmonary. Recommend slow steroid taper over 2 weeks on discharge. Also noted to have a giant buloous emphysema by pulmonary which will be further evaluated outpatient (6) Lactic acidosis Current Visit: Yes Status: Resolved Assessment and plan: Due to sepsis with bronchitis trending down (7) Giant bullous emphysema Current Visit: Yes Status: Chronic Assessment and plan: Plan for outpatient evaluation per CT surgery - Time Spent With Patient Total time spent is greater than 50% in coordination of care (as documented) at patient's floor/unit and/or counseling patient: - Subjective Interval history: Seen and examined at bedside Admitted and managed for COPDE He has made clinical improvement, he denies new complains manager internet working on finding a oh to his apartment. - Constitutional Vitals: Temp Pulse Resp BP Pulse Ox 98.1 F 93 16 126/73 96 12/16/17 11:48 12/16/17 11:48 12/16/17 11:48 12/16/17 11:48 12/16/17 11:48 General appearance: Present: cooperative, disheveled, A&O X 3, obese - Head Head exam: Present: atraumatic, normocephalic - Eye Eye exam: Present: PERRL, conjuntiva pink, sclera anicteric Pupils: Present: PERRL - Neck Neck exam general surgery: Present: supple, trachea midline. Absent: lymphadenopathy - Respiratory Respiratory exam: Present: decreased breath sounds. Absent: accessory muscle use, rales, rhonchi, wheezes - Cardiovascular Cardiovascular exam: Present: RRR, +S1, +S2. Absent: diastolic murmur, gallop, rubs, systolic murmur - GI/Abdominal GI/Abdominal exam: Present: normal bowel sounds, soft, no peritoneal signs. Absent: distended, tenderness - Extremities Exam Extremities exam: Present: warm, radial pulses palpable and symmetrical. Absent : calf tenderness, cyanotic, pedal edema - Neurological Exam Neurological exam: Present: alert, CN II-XII intact, oriented X3, no focal deficits. Absent: pronater drift, facial droop, speech deficit - Skin Skin exam: Present: dry, intact Internal Medicine: Result - Labs CBC & Chem 7: 12/16/17 03:50 12/16/17 03:50 Labs: Short CBC 12/16/17 Range/Units 03:50 WBC 4.6 (4.3-11.1) K/mcL Hgb 9.8 L (12.9-16.9) g/dL Hct 28.6 L (37.5-50.1) % Plt Count 98 L (140-400) K/mcL Neutrophils # 3.7 (1.6-8.9) K/mcL BMP 12/16/17 03:50 Sodium 131 L Potassium 4.3 Chloride 92 L Carbon Dioxide 35 H BUN 27 H Creatinine 0.39 L Glucose 272 H Calcium 8.3 L Consult Discharge Plan - Plan [facility]errals: [facility] [Primary Care Provider] - 12/22/17 9:45 am (Please follow up as schedule...) Prescriptions: Azithromycin [Zithromax] 500 mg PO Q24H #5 tablet predniSONE [PredniSONE] 10 mg PO DAILY #4 tablet predniSONE [PredniSONE] 20 mg PO DAILY #4 tablet predniSONE [PredniSONE] 40 mg PO DAILY #8 tablet predniSONE [PredniSONE] 5 mg PO DAILY #4 tablet
--- NOTE | 2017-12-16 14:20 | Event Note ---
Date of Encounter: 12/16/17 Time of Encounter: 14:19 Goals of care have been established by primary care team. Patient's discharge order written. Palliative care will sign off as no clinical need for evaluation.
[2017-12-17] MEDS ORDERED: predniSONE 20 MG TABLET PO SCH (09:00)
== END 2017-12-16 16:32 | disposition home or self-care (01) | DRG 720 ==
LOC: EMEROO 00:15 → ICNU 00:15 → SUATTDRO 04:06 → ICNU 04:10 → 2ANU 11:19
PROVIDERS: ADMIT Internal Medicine; ATTEND Internal Medicine

== ENCOUNTER 2017-12-17 16:50 | Observation (INO) ==
[2017-12-17] MEDS ORDERED: methylPREDNISolone 125 MG/2 ML VIAL IVP ONE (16:52)
[2017-12-17] MEDS ORDERED: Ipratropium/Albuterol Neb 3 ML IH ONE (16:52)
--- NOTE | 2017-12-17 16:59 | Emergency Department Note ---
Disposition Clinical Impression: Respiratory insufficiency, Acute exacerbation of chronic obstructive airways disease Disposition: Still a Patient General Adult HPI - General Chief complaint: ED Shortness of Breath/Dyspnea Stated complaint: GER Time Seen by Provider: 12/17/17 16:52 - Related Data Home Medications Medication Instructions Recorded Confirmed Bisacodyl [Woman's Laxative] 10 mg PO DAILY PRN 07/07/17 12/09/17 Docusate [Colace] 100 mg PO BID 07/07/17 12/09/17 Omeprazole [PriLOSEC] 20 mg PO DAILY 07/07/17 12/09/17 Ondansetron HCl [Zofran] 4 mg PO TID PRN 07/07/17 12/09/17 Polyethylene Glycol 3350 [MiraLAX] 17 gm PO BID PRN 07/07/17 12/09/17 Sildenafil Citrate [Viagra] 50 mg PO AD PRN 07/07/17 12/09/17 Aspirin Enteric Coated [Aspirin EC] 81 mg PO DAILY 08/23/17 12/09/17 Oxygen 2.5 l .ROUTE AD 08/23/17 12/09/17 Acetaminophen [Tylenol Arthritis] 650 mg PO Q6H PRN 11/22/17 12/09/17 LORazepam [Ativan] 0.5 mg PO BID 11/22/17 12/09/17 Melatonin/Pyridoxine HCl (B6) 6 mg PO HS PRN 11/22/17 12/09/17 [Melatonin 3 mg Tablet] OLANZapine [Zyprexa] 5 mg PO QAM 11/22/17 12/09/17 OLANZapine [Zyprexa] 10 mg PO HS 11/22/17 12/09/17 metFORMIN [Glucophage] 500 mg PO BID 11/22/17 12/09/17 traZODone [TraZODone] 50 mg PO TID 11/22/17 12/09/17 Previous Rx's Medication Instructions Recorded Metoprolol XL (24 HR) Succ [Toprol 12.5 mg PO DAILY #30 tab.er.24h 11/24/17 Xl] Nicotine Patch [Nicoderm] 21 mg TD DAILY patch.td24 11/24/17 Albuterol Sulfate [Ventolin Hfa] 2 puff IH Q6H PRN #30 hfa.aer.ad 11/30/17 Budesonide/Formoterol 160/4.5 2 puff IH BID #30 inhaler 11/30/17 [Symbicort 160/4.5] PredniSONE [Marifer] 2.5 mg PO DAILY #30 tablet. 11/30/17 Azithromycin [Zithromax] 500 mg PO Q24H #5 tablet 12/15/17 predniSONE [PredniSONE] 5 mg PO DAILY #4 tablet 12/15/17 predniSONE [PredniSONE] 10 mg PO DAILY #4 tablet 12/15/17 predniSONE [PredniSONE] 20 mg PO DAILY #4 tablet 12/15/17 predniSONE [PredniSONE] 40 mg PO DAILY #8 tablet 12/15/17 Allergies Allergy/AdvReac Type Severity Reaction Status Date / Time haloperidol [From Haldol] AdvReac Muscle Pain Verified 12/09/17 00:19 [place] AdvReac Weakness Verified 12/09/17 00:19 Past Medical History - Past Medical History Medical history: Reports: COPD, diabetes, hepatitis, other Surgical history: Reports: cholecystectomy Psychiatric history: Reports: anxiety, bipolar, depression, schizophrenia - Social History Smoking Status: Current every day smoker Smokeless Tobacco Status: No Alcohol use: Reports: none Drug use: Reports: none Course - Reevaluation(s) Reevaluation #1: ATTESTATION NOTE I examined this patient and my medical decision-making was reviewed with the Resident Physician/SIZE ROLLER OPERATOR/PA. I agree with the documented findings, disposition and treatment plan as described except to the extent set forth below. I have independently evaluated the patient, & had [id number] contact. Patient was seen with the emergency medicine resident NIKOLAS SALDAÑA, please see a copy of her notes for details of the patient encounter. Briefly: 62-year-old male tobacco user history of advanced age COPD on home O2 comes in by EMS for acute dyspnea and weakness. Patient is very tight intercostal retractions or accessory muscles being used and no puff cheeks. He has wheezing expiratory prolonged temple. Patient get a DuoNeb be placed on BiPAP. Screening labs EKG are in process admission anticipated, providing 40 minutes of critical care service for this patient Time: 16:58
[2017-12-17] MEDS ORDERED: Levofloxacin 500 MG/100 ML 500 MG/100 ML BAG IVPB ONE (17:49)
[2017-12-17 18:18] LABS: BUN/Creatinine Ratio 30 (6-26); Blood Urea Nitrogen 16 mg/dL (8-23); Calcium 8.8 mg/dL (8.6-10.3); Carbon Dioxide 42 mEq/L (23-29); Chloride 88 mEq/L (98-107); Glucose 111 mg/dL (70-105); Osmolality,Calculated 278 (280-300); Potassium 3.7 mEq/L (3.5-5.1); Sodium 133 mEq/L (136-145); Troponin I < 0.03 ng/mL (< 0.04); eGFR For African Americans > 60 (> 60); eGFR For Non-African Americans > 60 (> 60)
--- NOTE | 2017-12-17 18:42 | Emergency Department Note ---
Disposition Clinical Impression: Respiratory insufficiency, Acute exacerbation of chronic obstructive airways disease, Hypercarbia Disposition: Still a Patient Condition: Undetermined Forms: ED Satisfaction Letter Time of Disposition: 18:46 SOB HPI - General Chief Complaint: ED Shortness of Breath/Dyspnea Stated Complaint: GER Time Seen by Provider: 12/17/17 16:52 Source: patient, EMS Limitations: no limitations Nursing Notes Reviewed: Yes Vital Signs Reviewed: Yes - History of Present Illness Patient is a 62-year-old male who presents to [facility] ED with a chief complaint of difficulty breathing. Patient has a history of COPD. He is supposed to be using a CPAP as well as oxygen at home. However when EMS arrived, they state his oxygen concentrator was not on and his CPAP was not and use due to patient not knowing how to use it. Upon presentation, patient has diffuse wheezes and sounds extremely tight bilaterally and very tachypneic. Pt Subjective Complaint: shortness of breath Onset (ago): day(s) Severity: severe Consistency/Duration: gradually worsening Improves with: nothing Worsens with: exertion Known history of: COPD Associated symptoms: Reports: wheezing. Denies: chest pain, fever, cough Treatment prior to arrival: oxygen, bronchodilator Cough present: No - Related Data Home oxygen amount: CPAP Home Medications Medication Instructions Recorded Confirmed Bisacodyl [Woman's Laxative] 10 mg PO DAILY PRN 07/07/17 12/09/17 Docusate [Colace] 100 mg PO BID 07/07/17 12/09/17 Omeprazole [PriLOSEC] 20 mg PO DAILY 07/07/17 12/09/17 Ondansetron HCl [Zofran] 4 mg PO TID PRN 07/07/17 12/09/17 Polyethylene Glycol 3350 [MiraLAX] 17 gm PO BID PRN 07/07/17 12/09/17 Sildenafil Citrate [Viagra] 50 mg PO AD PRN 07/07/17 12/09/17 Aspirin Enteric Coated [Aspirin EC] 81 mg PO DAILY 08/23/17 12/09/17 Oxygen 2.5 l .ROUTE AD 08/23/17 12/09/17 Acetaminophen [Tylenol Arthritis] 650 mg PO Q6H PRN 11/22/17 12/09/17 LORazepam [Ativan] 0.5 mg PO BID 11/22/17 12/09/17 OLANZapine [Zyprexa] 5 mg PO QAM 11/22/17 12/09/17 OLANZapine [Zyprexa] 10 mg PO HS 11/22/17 12/09/17 metFORMIN [Glucophage] 500 mg PO BID 11/22/17 12/09/17 traZODone [TraZODone] 50 mg PO TID 11/22/17 12/09/17 Previous Rx's Medication Instructions Recorded Metoprolol XL (24 HR) Succ [Toprol 12.5 mg PO DAILY #30 tab.er.24h 11/24/17 Xl] Albuterol Sulfate [Ventolin Hfa] 2 puff IH Q6H PRN #30 hfa.aer.ad 11/30/17 Budesonide/Formoterol 160/4.5 2 puff IH BID #30 inhaler 11/30/17 [Symbicort 160/4.5] Allergies Allergy/AdvReac Type Severity Reaction Status Date / Time haloperidol [From Haldol] AdvReac Muscle Pain Verified 12/09/17 00:19 [place] AdvReac Weakness Verified 12/09/17 00:19 All systems ED: reviewed and negative except as stated. Past Medical History - Past Medical History Attestation: Yes The following information was validated with the patient. Source: patient Medical history: Reports: COPD, diabetes, hepatitis, other Surgical history: Reports: cholecystectomy Psychiatric history: Reports: anxiety, bipolar, depression, schizophrenia - Social History Smoking Status: Current every day smoker Smokeless Tobacco Status: No Alcohol use: Reports: none Drug use: Reports: none Physical Exam - General Limitations: no limitations General appearance: alert, in no apparent distress - Head Head exam: atraumatic, normocephalic, normal inspection - Eye Eye exam: Present: normal appearance, PERRL, EOMI - ENT ENT exam: normal exam, normal oropharynx, mucous membranes moist - Neck Neck exam: Present: normal inspection, full ROM, trachea midline - Chest Chest inspection: Present: normal inspection, symmetric chest wall rise - Respiratory Respiratory exam: Present: normal lung sounds bilaterally - Cardiovascular Cardiovascular exam: Present: normal rhythm, tachycardia, normal heart sounds - Abdominal Exam Abdominal exam: Present: soft, Non-Tender. Absent: tenderness, distention, guarding, rebound, rigidity - Extremities Exam Extremities exam: Present: normal inspection, full ROM. Absent: tenderness, pedal edema - Back Exam Back exam: Present: normal inspection, full ROM. Absent: tenderness - Neurological Exam Neurological exam: Present: alert, oriented X3 - Psychiatric Psychiatric exam: Present: normal affect, normal mood - Skin Skin exam: Present: warm, dry, intact, normal color Course Course Narrative: Patient seen and examined. Difficulty breathing worse over the last several days. Very short of breath. Respiratory therapy was called to administer a triple DuoNeb as well as BiPAP. Cardiopulmonary workup initiated. He is tachycardic and has a reported fever at home. We will get blood cultures. We will go ahead and start Levaquin with his COPD exacerbation. We will also give 125 mg of Solu-Medrol. - Reevaluation(s) Reevaluation #1: Patient pending lab work. Resting more comfortably on BiPAP at this time. Patient will need admission for his COPD exacerbation. He likely needs placement since he does not seem like he is able to take care of himself with his respiratory needs at home. Patient to be signed out to Dr. Blessing Velarde. Time: 18:47 Vital Signs Temperature 99.1 F 12/17/17 16:52 Pulse Rate 115 12/17/17 16:52 Respiratory Rate 22 12/17/17 16:52 Blood Pressure 112/76 12/17/17 16:52 O2 Sat by Pulse Oximetry 96 12/17/17 16:52 Temperature 99.1 F 12/17/17 16:52 Pulse Rate 95 12/17/17 18:00 Respiratory Rate 13 12/17/17 18:00 Blood Pressure 121/75 12/17/17 18:00 O2 Sat by Pulse Oximetry 99 12/17/17 18:00 Oxygen Delivery Oxygen Delivery Bipap Shortness of Breath/Dyspnea - Medical Records Medical records reviewed: Yes I reviewed the patient's medical records. - Lab Data Lab results reviewed: Yes I reviewed the patient's lab results. Result diagrams: 12/17/17 17:26 Lab Results 12/17/17 12/17/17 12/17/17 Range/Units 17:26 17:26 17:26 Sodium 133 L (136-145) mEq/L Potassium 3.7 (3.5-5.1) mEq/L Chloride 88 L (98-107) mEq/L Carbon Dioxide 42 H* (23-29) mEq/L BUN 16 (8-23) mg/dL Creatinine 0.54 L (0.70-1.30) mg/dL Est GFR ( Amer) > 60 (> 60) Est GFR (Non-Af Amer) > 60 (> 60) BUN/Creatinine Ratio 30 H (6-26) Glucose 111 H (70-105) mg/dL Calculated Osmolality 278 L (280-300) Lactic Acid 0.8 (0.5-2.2) mmol/L Calcium 8.8 (8.6-10.3) mg/dL Troponin I < 0.03 (< 0.04) ng/mL B-Natriuretic Peptide 49 (Less than 100) pg/mL - Radiology Data Radiology results reviewed: Yes I reviewed the patient's radiology results. Chest X-Ray 12/17/17 16:52 IMPRESSION: Bullous emphysema with no acute infiltrate D/ / Scott Emmanuel MD / Scott Emmanuel MD Interpreting Provider: Scott Emmanuel MD - EKG Data EKG attestation: Yes I reviewed and interpreted this EKG. EKG results narrative: EKG done at 1726 shows sinus tachycardia with a rate of [address] elevation or depression. Normal axis. Enlarged P waves noted. Unchanged from prior EKG done on 12/09/2017.
--- NOTE | 2017-12-17 19:28 | Emergency Department Note ---
Disposition Clinical Impression: Respiratory insufficiency, Acute exacerbation of chronic obstructive airways disease, Hypercarbia Disposition: Still a Patient Condition: Undetermined Forms: ED Satisfaction Letter Time of Disposition: 19:29 SOB HPI - General Chief Complaint: ED Shortness of Breath/Dyspnea Stated Complaint: GER Time Seen by Provider: 12/17/17 16:52 Source: patient, EMS Limitations: no limitations - History of Present Illness 62-year-old with history of COPD presents back to the hospital with worsening dyspnea. He was recently admitted to the hospital and released 2 days ago. However, he has been noncompliant with smoking cessation and symptoms progressively worsened over the past 24 hours. He presented with moderate distress but was not improving with sequential DuoNeb treatments and now is on BiPAP. He is feeling better with the BiPAP. Severity: severe Improves with: nothing Worsens with: exertion Associated symptoms: Reports: wheezing. Denies: chest pain, fever, cough Treatment prior to arrival: oxygen, bronchodilator - Related Data Home oxygen amount: CPAP Home Medications Medication Instructions Recorded Confirmed Bisacodyl [Woman's Laxative] 10 mg PO DAILY PRN 07/07/17 12/09/17 Docusate [Colace] 100 mg PO BID 07/07/17 12/09/17 Omeprazole [PriLOSEC] 20 mg PO DAILY 07/07/17 12/09/17 Ondansetron HCl [Zofran] 4 mg PO TID PRN 07/07/17 12/09/17 Polyethylene Glycol 3350 [MiraLAX] 17 gm PO BID PRN 07/07/17 12/09/17 Sildenafil Citrate [Viagra] 50 mg PO AD PRN 07/07/17 12/09/17 Aspirin Enteric Coated [Aspirin EC] 81 mg PO DAILY 08/23/17 12/09/17 Oxygen 2.5 l .ROUTE AD 08/23/17 12/09/17 Acetaminophen [Tylenol Arthritis] 650 mg PO Q6H PRN 11/22/17 12/09/17 LORazepam [Ativan] 0.5 mg PO BID 11/22/17 12/09/17 OLANZapine [Zyprexa] 5 mg PO QAM 11/22/17 12/09/17 OLANZapine [Zyprexa] 10 mg PO HS 11/22/17 12/09/17 metFORMIN [Glucophage] 500 mg PO BID 11/22/17 12/09/17 traZODone [TraZODone] 50 mg PO TID 11/22/17 12/09/17 Previous Rx's Medication Instructions Recorded Metoprolol XL (24 HR) Succ [Toprol 12.5 mg PO DAILY #30 tab.er.24h 11/24/17 Xl] Albuterol Sulfate [Ventolin Hfa] 2 puff IH Q6H PRN #30 hfa.aer.ad 11/30/17 Budesonide/Formoterol 160/4.5 2 puff IH BID #30 inhaler 11/30/17 [Symbicort 160/4.5] Allergies Allergy/AdvReac Type Severity Reaction Status Date / Time haloperidol [From Haldol] AdvReac Muscle Pain Verified 12/09/17 00:19 [place] AdvReac Weakness Verified 12/09/17 00:19 Past Medical History - Past Medical History Medical history: Reports: COPD, diabetes, hepatitis, other Surgical history: Reports: cholecystectomy Psychiatric history: Reports: anxiety, bipolar, depression, schizophrenia - Social History Smoking Status: Current every day smoker Smokeless Tobacco Status: No Alcohol use: Reports: none Drug use: Reports: none Physical Exam - General Limitations: no limitations General appearance: alert, in no apparent distress Course - Reevaluation(s) Reevaluation #1: Feeling better on BiPAP treatment. Moderate blebs noted on chest x-ray. No focal infiltrate appreciated. Will admit Time: 19:29 Vital Signs Temperature 99.1 F 12/17/17 16:52 Pulse Rate 115 12/17/17 16:52 Respiratory Rate 22 12/17/17 16:52 Blood Pressure 112/76 12/17/17 16:52 O2 Sat by Pulse Oximetry 96 12/17/17 16:52 Temperature 99.1 F 12/17/17 16:52 Pulse Rate 95 12/17/17 19:19 Respiratory Rate 18 12/17/17 19:19 Blood Pressure 97/72 12/17/17 19:19 O2 Sat by Pulse Oximetry 100 12/17/17 19:19 Oxygen Delivery Oxygen Delivery Bipap Shortness of Breath/Dyspnea - Lab Data Result diagrams: 12/17/17 17:26 Lab Results 12/17/17 12/17/17 12/17/17 Range/Units 17:26 17:26 17:26 Sodium 133 L (136-145) mEq/L Potassium 3.7 (3.5-5.1) mEq/L Chloride 88 L (98-107) mEq/L Carbon Dioxide 42 H* (23-29) mEq/L BUN 16 (8-23) mg/dL Creatinine 0.54 L (0.70-1.30) mg/dL Est GFR ( Amer) > 60 (> 60) Est GFR (Non-Af Amer) > 60 (> 60) BUN/Creatinine Ratio 30 H (6-26) Glucose 111 H (70-105) mg/dL Calculated Osmolality 278 L (280-300) Lactic Acid 0.8 (0.5-2.2) mmol/L Calcium 8.8 (8.6-10.3) mg/dL Troponin I < 0.03 (< 0.04) ng/mL B-Natriuretic Peptide 49 (Less than 100) pg/mL
[2017-12-17 19:47] LABS: Basophils % 0.1 %; Eosinophils % 0.5 %; Hematocrit 33.6 % (37.5-50.1); Immature Granulocytes % 2.3 % (0-4); Lymphocytes # 0.4 K/mcL (0.6-4.6); Lymphocytes % 5.4 %; Mean Corpuscular HGB Conc 34.5 g/dL (31.6-35.5); Mean Corpuscular Hemoglobin 30.9 pg (28.0-33.3); Mean Corpuscular Volume 89.6 fL (83.0-100.0); Mean Platelet Volume 9.3 fL (9.4-12.4); Monocytes # 0.3 K/mcL (0.0-1.3); Monocytes % 3.4 %; Neutrophils # 6.5 K/mcL (1.6-8.9); Nucleated Red Blood Cells 0.3 /100 WBC (0); Platelet Count 120 K/mcL (140-400); Red Blood Count 3.75 M/mcL (4.19-5.50); Red Cell Distribution Width 12.9 % (11.5-14.5); Segmented Neutrophils % 88.3 %
[2017-12-17 19:48] LABS: Hemoglobin 11.6 g/dL (12.9-16.9)
[2017-12-17] MEDS ORDERED: Levalbuterol Neb 1.25 MG/3 ML IH PRN (20:40)
[2017-12-17] MEDS ORDERED: Naloxone 0.4 MG/ML INJ IVP PRN (20:47)
[2017-12-17] MEDS ORDERED: traMADol 50 MG TABLET PO PRN (20:47)
[2017-12-17] MEDS ORDERED: Acetaminophen 325 MG TABLET PO PRN (20:47)
--- NOTE | 2017-12-17 20:53 | Internal Med History&Physical ---
Date of Encounter: 12/17/17 Time of Encounter: 20:51 Internal Medicine - H&P: HPI Chief complaint: Shortness of breath Admitted From: Emergency Dept History of present illness: Mr. Sosa is a 62 year old male with a past medical history of severe gigantic bulla emphysema COPD oxygen dependent using 2.5 L at home, remote history of IV drug abuse, hepatitis B, diabetes type 2 insulin-dependent, just discharged from this facility 2 days ago and treated for COPD exacerbation, discharged on azithromycin and prednisone. Complained of recurrent difficulty breathing, the patient still smokes. Apparently he did not know how to use his CPAP at home CO2 is 42 sodium 133. Currently he is in the ER he is in a BiPAP, received Levaquin and Solu-Medrol, denies any chest pain or fevers Past Med Surg Social Fam HX - Past Medical History Medical history: COPD (Oxygen dependent 2.5 L, giant bullous emphysema. Chronic respiratory failure), diabetes (Insulin-dependent), hepatitis, other ( Hepatitis B, left upper extremity superficial thrombosis, bipolar disorder, tobacco abuse, aspiration pneumonia, schizoaffective disorder, remote history of IV drug abuse) Additional medical history: Hepatitis C Psychiatric history: anxiety, bipolar, depression, schizophrenia - Past Surgical History Surgical History: cholecystectomy Additional surgical history: HEP-C - Social History Smoking Status: Current every day smoker Packs per day: Half a pack per day Smokeless Tobacco Status: No Alcohol use: none Drug use: none - Family History Mother Adopted: No Family Member Ethnicity: Non- Living Status: Hx Family Cardiac Disorders: Yes Hx Family Respiratory Disorders: Yes (dad emphezema) Hx Family Cancer: Yes (lung CA) Hx Family GI Disorders: No Hx Family Endocrine Disorder: Yes (DM) Hx Family Neuromuscular Disorders: No Hx Family Neurologic Disorders: No Hx Family HEENT Disorders: No Hx Family Autoimmune Disorders: No Father Adopted: No Family Member Ethnicity: Non- Living Status: Hx Family Cardiac Disorders: No Hx Family Respiratory Disorders: Yes Hx Family Cancer: Yes (Lung CA) Hx Family GI Disorders: No Hx Family Endocrine Disorder: No Hx Family Neuromuscular Disorders: No Hx Family Neurologic Disorders: No Hx Family HEENT Disorders: No Hx Family Autoimmune Disorders: No Brother Family Member Ethnicity: Non- Living Status: Still Living Hx Family Respiratory Disorders: Yes (Emphysema) Sister Family Member Ethnicity: Non- Living Status: Still Living - Additional Family History Additional family history: Mother with diabetes, lung cancer and COPD, father with lung cancer, brother with emphysema Internal Medicine - H&P: Meds Bisacodyl [Woman's Laxative] 10 mg PO DAILY PRN 07/07/17 [History] Docusate [Colace] 100 mg PO BID 07/07/17 [History] Omeprazole [PriLOSEC] 20 mg PO DAILY 07/07/17 [History] Ondansetron HCl [Zofran] 4 mg PO TID PRN 07/07/17 [History] Polyethylene Glycol 3350 [MiraLAX] 17 gm PO BID PRN 07/07/17 [History] Sildenafil Citrate [Viagra] 50 mg PO AD PRN 07/07/17 [History] Aspirin Enteric Coated [Aspirin EC] 81 mg PO DAILY 08/23/17 [History] Oxygen 2.5 l .ROUTE AD 08/23/17 [History] Acetaminophen [Tylenol Arthritis] 650 mg PO Q6H PRN 11/22/17 [History] LORazepam [Ativan] 0.5 mg PO BID 11/22/17 [History] OLANZapine [Zyprexa] 5 mg PO QAM 11/22/17 [History] OLANZapine [Zyprexa] 10 mg PO HS 11/22/17 [History] metFORMIN [Glucophage] 500 mg PO BID 11/22/17 [History] traZODone [TraZODone] 50 mg PO TID 11/22/17 [History] Albuterol Sulfate [Ventolin Hfa] 2 puff IH Q6H PRN #30 hfa.aer.ad 11/30/17 [Rx] Budesonide/Formoterol 160/4.5 [Symbicort 160/4.5] 2 puff IH BID #30 inhaler [Rx] Levalbuterol Neb [Xopenex Neb] 1.25 mg IH Q6H PRN 12/17/17 [History] Melatonin 6 mg PO HS 12/17/17 [History] Metoprolol [Lopressor] 12.5 mg PO BID 12/17/17 [History] predniSONE [PredniSONE] 2.5 mg PO DAILY 12/17/17 [History] 3 Allergy/AdvReac Type Severity Reaction Status Date / Time haloperidol [From Haldol] AdvReac Muscle Pain Verified 12/09/17 00:19 [place] AdvReac Weakness Verified 12/09/17 00:19 All Systems PM: A 10-system review of systems was performed and is negative for pertinent findings except as documented above in the HPI. Review of systems: No abdominal pain, other systems out of the 10 reviewed were negative - Constitutional Vitals: Temp Pulse Resp BP Pulse Ox 99.1 F 95 18 97/72 100 12/17/17 16:52 12/17/17 19:19 12/17/17 19:19 12/17/17 19:19 12/17/17 19:19 General appearance: Present: A&O X 3 - Head Head exam: Present: atraumatic, normocephalic - Eye Eye exam: Present: PERRL, conjuntiva pink, sclera anicteric Pupils: Present: PERRL - Neck Neck exam general surgery: Present: supple, trachea midline. Absent: lymphadenopathy - Respiratory Respiratory exam: Present: decreased breath sounds (Diminished breath sound with diffuse wheezing), CTAB, wheezes. Absent: accessory muscle use, rales, rhonchi - Cardiovascular Cardiovascular exam: Present: RRR, +S1, +S2. Absent: diastolic murmur, gallop, rubs, systolic murmur - GI/Abdominal GI/Abdominal exam: Present: normal bowel sounds, soft, no peritoneal signs. Absent: distended, tenderness - Extremities Exam Extremities exam: Present: warm, radial pulses palpable and symmetrical. Absent : calf tenderness, cyanotic, pedal edema - Neurological Exam Neurological exam: Present: CN II-XII intact, oriented X3, no focal deficits. Absent: pronater drift, facial droop, speech deficit - Skin Skin exam: Present: dry, intact Internal Med - H&P Results - Labs CBC & Chem 7: 12/17/17 19:35 12/17/17 17:26 - Assessment and plan (1) Acute exacerbation of chronic obstructive airways disease Current Visit: No Status: Acute Assessment and plan: Acute on chronic hypoxic respiratory failure secondary to acute COPD exacerbation possibly secondary to bacterial bronchitis, and noncompliance Continue Solu-Medrol, Levaquin, duo nebs, oxygen therapy, BiPAP Omeprazole for GI prophylaxis and subcutaneous heparin for DVT prophylaxis. The patient will be admitted for observation, full code. Time spent on this admission 40 minutes (2) Bronchitis Current Visit: No Status: Acute (3) Diabetes mellitus Current Visit: No Status: Chronic Assessment and plan: Insulin sliding scale Qualifiers: Diabetes mellitus type: type 2 Diabetes mellitus snf insulin use: without snf use Diabetes mellitus complication status: with hyperglycemia Qualified Code(s): E11.65 - Type 2 diabetes mellitus with hyperglycemia (4) Giant bullous emphysema Current Visit: No Status: Chronic (5) IV drug abuse Current Visit: No Status: Chronic (6) Schizoaffective disorder, bipolar type Current Visit: No Status: Chronic (7) Tobacco abuse Current Visit: No Status: Chronic Assessment and plan: Smoking cessation counseling given for 5 minutes, nicotine patch - Time Spent With Patient Total time spent is greater than 50% in coordination of care (as documented) at patient's floor/unit and/or counseling patient:
[2017-12-17] MEDS: Nicotine 21 MG PATCH.TD24 TD SCH (22:06)
[2017-12-17] MEDS: *HR* Heparin 5,000 UNIT/ML VIAL SQ SCH (22:07)
[2017-12-17] MEDS: *HR* LORazepam 0.5 MG TABLET PO SCH (22:07)
[2017-12-17] MEDS: traZODone 50 MG TABLET PO SCH (22:08)
[2017-12-17] MEDS: OLANZapine 10 MG TAB.RAPDIS PO SCH (22:08)
[2017-12-17] MEDS: Ipratropium/Albuterol Neb 3 ML IH SCH (22:27)
[2017-12-18] MEDS: MethylPREDNISolone 40 MG/ML VIAL IVP SCH ×3 (01:10→17:04)
[2017-12-18] MEDS: Ipratropium/Albuterol Neb 3 ML IH SCH ×4 (04:00→21:29)
[2017-12-18 05:12] LABS: Hematocrit 30.9 % (37.5-50.1); Hemoglobin 10.3 g/dL (12.9-16.9); Mean Corpuscular HGB Conc 33.3 g/dL (31.6-35.5); Mean Corpuscular Hemoglobin 29.3 pg (28.0-33.3); Mean Corpuscular Volume 87.8 fL (83.0-100.0); Mean Platelet Volume 10.3 fL (9.4-12.4); Platelet Count 125 K/mcL (140-400); Red Blood Count 3.52 M/mcL (4.19-5.50)
[2017-12-18 05:31] LABS: BUN/Creatinine Ratio 33 (6-26); Blood Urea Nitrogen 15 mg/dL (8-23); Calcium 8.4 mg/dL (8.6-10.3); Carbon Dioxide 37 mEq/L (23-29); Chloride 91 mEq/L (98-107); Glucose 235 mg/dL (70-105); Osmolality,Calculated 288 (280-300); Sodium 135 mEq/L (136-145); eGFR For African Americans > 60 (> 60); eGFR For Non-African Americans > 60 (> 60)
[2017-12-18] MEDS: *HR* Heparin 5,000 UNIT/ML VIAL SQ SCH ×3 (06:15→20:49)
--- NOTE | 2017-12-18 07:19 | Electrocardiograph Report ---
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
[2017-12-18] MEDS: Nicotine 21 MG PATCH.TD24 TD SCH (08:46)
[2017-12-18] MEDS: traZODone 50 MG TABLET PO SCH ×3 (08:46→20:49)
[2017-12-18] MEDS: *HR* LORazepam 0.5 MG TABLET PO SCH ×2 (08:46→20:49)
[2017-12-18] MEDS: Aspirin Enteric Coated 81 MG Tablet PO SCH (08:46)
[2017-12-18] MEDS: OLANZapine 5 MG TAB.RAPDIS PO SCH (08:49)
--- NOTE | 2017-12-18 09:18 | Internal Med Progress Note ---
<Jose Luis Sanchez - Last Filed: 12/18/17 14:51> Date of Encounter: 12/18/17 Time of Encounter: 09:17 - Assessment and plan (1) Acute exacerbation of chronic obstructive airways disease Current Visit: Yes Status: Acute Assessment and plan: Acute on chronic hypoxic respiratory failure secondary to acute COPD exacerbation, and noncompliance Discharged 2 days ago with prednisone and azithromycin. CXR with bullous emphysema and no acute filtrate. Patient doing better since admission. Continue Solu-Medrol, azithromycin, duo nebs, supplemental oxygen, BiPAP Blood culture prelim growing gram + cocci, staph species not s. aureus with mecA gene (likely contaminant) (2) Giant bullous emphysema Current Visit: Yes Status: Chronic Assessment and plan: per plan in assessment above. (3) Tobacco abuse Current Visit: No Status: Chronic Assessment and plan: Smoking cessation counseling. nicotine patch (4) Schizoaffective disorder, bipolar type Current Visit: No Status: Chronic Assessment and plan: Continue home medications for chronic disease management (5) IV drug abuse Current Visit: No Status: Chronic Assessment and plan: History of. (6) Diabetes mellitus Current Visit: No Status: Chronic Assessment and plan: Insulin sliding scale Qualifiers: Diabetes mellitus type: type 2 Diabetes mellitus shelter insulin use: without fashion intern use Diabetes mellitus complication status: with hyperglycemia Qualified Code(s): E11.65 - Type 2 diabetes mellitus with hyperglycemia (7) Stool bloody Current Visit: Yes Status: Acute Assessment and plan: Hb 10.3 from 11.6 yesterday. Overnight had 1 loose bowel movement with bright red blood. Discussed with patient gi bleed protocol and patient declines endoscopy at this time because he wants to eat. He said he would consider endoscopy and further evaluation if the hemoccult returns positive. -Continue with Protonix -Hemoccult ordered. -Continue monitoring labs. - Time Spent With Patient Total time spent is greater than 50% in coordination of care (as documented) at patient's floor/unit and/or counseling patient: - Subjective Interval history: Patient reports breathing is doing better. Reports still having a dry but wet sounding cough. He did have a stool yesterday evening with bright red blood. Patient denies fevers, chills, sweats, nausea, vomiting, chest pain, abdominal pain, changes in bowels or bladder, weakness, or loss of sensation. Discussed with patient regarding gi bleed protocol and patient declines additional testing at this time because he wants to eat. He has agreed to consider endocscopy/further eval of the gi bleed if the hemoccult confirms blood. - Constitutional Vitals: Temp Pulse Resp BP Pulse Ox 98.1 F 73 17 114/70 97 12/18/17 07:16 12/18/17 07:16 12/18/17 07:16 12/18/17 07:16 12/18/17 07:16 General appearance: Present: A&O X 3, pleasant, no acute distress, answers questions appropriately - Head Head exam: Present: atraumatic, normal inspection, normocephalic - Eye Eye exam: Present: EOMI, normal appearance - ENT ENT exam: Present: mucous membranes moist, normal exam - Neck Neck exam general surgery: Present: full ROM, normal inspection - Respiratory Respiratory exam: Present: CTAB, rhonchi. Absent: rales, wheezes - Cardiovascular Cardiovascular exam: Present: RRR, +S1, +S2 - GI/Abdominal GI/Abdominal exam: Present: normal bowel sounds, soft. Absent: distended, tenderness - Extremities Exam Extremities exam: Present: full ROM, normal inspection, warm, radial pulses palpable and symmetrical. Absent: pedal edema - Skin Skin exam: Present: dry, intact, normal color, warm. Absent: rash Internal Medicine: Result - Labs CBC & Chem 7: 12/18/17 04:21 12/18/17 04:21 Labs: Short CBC 12/18/17 Range/Units 04:21 WBC 5.2 (4.3-11.1) K/mcL Hgb 10.3 L (12.9-16.9) g/dL Hct 30.9 L (37.5-50.1) % Plt Count 125 L (140-400) K/mcL BMP 12/18/17 04:21 Sodium 135 L Potassium 4.0 Chloride 91 L Carbon Dioxide 37 H BUN 15 Creatinine 0.45 L Glucose 235 H Calcium 8.4 L Consult Discharge Plan - Plan [facility] Provider[facility] - <Charles Blanco - Last Filed: 12/18/17 16:42> Date of Encounter: 12/18/17 - Assessment and plan (1) Acute exacerbation of chronic obstructive airways disease Current Visit: Yes Status: Acute (2) Tobacco abuse Current Visit: No Status: Chronic (3) Schizoaffective disorder, bipolar type Current Visit: No Status: Chronic (4) IV drug abuse Current Visit: No Status: Chronic (5) Diabetes mellitus Current Visit: No Status: Chronic Qualifiers: Diabetes mellitus type: type 2 Diabetes mellitus shelter insulin use: without shelter use Diabetes mellitus complication status: with hyperglycemia Qualified Code(s): E11.65 - Type 2 diabetes mellitus with hyperglycemia (6) Giant bullous emphysema Current Visit: Yes Status: Chronic (7) Stool bloody Current Visit: Yes Status: Acute (8) Acute on chronic respiratory failure with hypoxemia Current Visit: No Status: Acute - Time Spent With Patient Total time spent is greater than 50% in coordination of care (as documented) at patient's floor/unit and/or counseling patient: - Constitutional Vitals: Temp Pulse Resp BP Pulse Ox 97.5 F L 89 16 114/72 99 12/18/17 15:12 12/18/17 15:12 12/18/17 15:12 12/18/17 10:57 12/18/17 15:12 Internal Medicine: Result - Labs CBC & Chem 7: 12/18/17 16:03 12/18/17 04:21 Labs: Short CBC 12/18/17 12/18/17 Range/Units 04:21 16:03 WBC 5.2 (4.3-11.1) K/mcL Hgb 10.3 L 10.0 L (12.9-16.9) g/dL Hct 30.9 L 29.2 L (37.5-50.1) % Plt Count 125 L (140-400) K/mcL [facility] 12/18/17 04:21 Sodium 135 L Potassium 4.0 Chloride 91 L Carbon Dioxide 37 H BUN 15 Creatinine 0.45 L Glucose 235 H Calcium 8.4 L - Attending Attestation I examined this patient and my medical decision-making was reviewed with the Resident Physician on 12/18/17. I agree with the documented findings, disposition and treatment plan as described except to the extent set forth below. Mr Weston is currently admitted for acute exac COPD. He remains moderate to high risk due to potential for worsening clinical status. Mr Weston is comfortable at this time. He has some anxiety. No fever or chills. Breathing about the same. No GI issues. Exam alert Comfortable Mucus membranes dry Heart distant Some wheeze noted bilaterally Abd soft I/P 1. COPD exac 2. Anxiety Further diagnoses and plan as above.
[2017-12-18 12:39] LABS: Acinetobacter baumannii by PCR Not Detected (Not Detect); Enterococcus by PCR Not Detected (Not Detect); Staphylococcus aureus by PCR Not Detected (Not Detect); Streptococcus agalactiae(B)PCR Not Detected (Not Detect); Streptococcus by PCR Not Detected (Not Detect); Streptococcus pneumoniae PCR Not Detected (Not Detect); Streptococcus pyogenes (A) PCR Not Detected (Not Detect); mecA Methicillin-Resist Gene ***DETECTED*** (Not Detect)
[2017-12-18 12:40] LABS: Candida albicans by PCR Not Detected (Not Detect); Candida glabrata by PCR Not Detected (Not Detect); Candida krusei by PCR Not Detected (Not Detect); Candida parapsilosis by PCR Not Detected (Not Detect); Candida tropicalis by PCR Not Detected (Not Detect); Escherichia coli by PCR Not Detected (Not Detect); Klebsiella oxytoca by PCR Not Detected (Not Detect); Klebsiella pneumoniae by PCR Not Detected (Not Detect); Pseudomonas aeruginosa by PCR Not Detected (Not Detect); Serratia marcescens by PCR Not Detected (Not Detect)
[2017-12-18] MEDS ORDERED: *HR* Dextrose 50 % in Water (Syg) 50 ML SYRINGE IVP PRN (13:48)
[2017-12-18] MEDS ORDERED: Dextrose Gel 15 GM/37.5 ML TUBE PO PRN ×2 (13:48)
[2017-12-18] MEDS ORDERED: D5% in Water 1,000 ML IVC PRN (13:48)
[2017-12-18] MEDS: Azithromycin 250 MG TABLET PO SCH (13:59)
[2017-12-18] MEDS ORDERED: *HR* LORazepam 0.5 MG TABLET PO ONE (14:20)
[2017-12-18 16:13] LABS: Hematocrit 29.2 % (37.5-50.1)
[2017-12-18] MEDS ORDERED: Insulin LISPRO 300 UNITS/3 ML VIAL SQ SCH ×2 (16:30)
[2017-12-18] MEDS ORDERED: SODIUM CHLORIDE/NAHCO3/KCL/PEG 4,000 ML SOLN.RECON PO ONE (17:04)
[2017-12-18] MEDS: Pantoprazole 40 MG VIAL IVP SCH (17:04)
[2017-12-18] MEDS: Insulin LISPRO 300 UNITS/3 ML VIAL SQ SCH (17:04)
[2017-12-18] MEDS ORDERED: Levofloxacin 750 MG/150 ML 750 MG/150 ML BAG IVPB SCH (18:00)
[2017-12-18] MEDS: OLANZapine 10 MG TAB.RAPDIS PO SCH (20:49)
[2017-12-18 22:23] LABS: Hematocrit 26.8 % (37.5-50.1); Hemoglobin 9.3 g/dL (12.9-16.9)
[2017-12-19] MEDS: Ipratropium/Albuterol Neb 3 ML IH SCH ×4 (03:50→21:41)
[2017-12-19 04:44] LABS: Eosinophils % 0.2 %; Hematocrit 27.2 % (37.5-50.1); Hemoglobin 9.1 g/dL (12.9-16.9); Immature Granulocytes % 1.6 % (0-4); Lymphocytes # 0.7 K/mcL (0.6-4.6); Lymphocytes % 13.1 %; Mean Corpuscular HGB Conc 33.5 g/dL (31.6-35.5); Mean Corpuscular Hemoglobin 29.6 pg (28.0-33.3); Mean Corpuscular Volume 88.6 fL (83.0-100.0); Mean Platelet Volume 9.7 fL (9.4-12.4); Monocytes # 0.3 K/mcL (0.0-1.3); Monocytes % 6.3 %; Neutrophils # 3.9 K/mcL (1.6-8.9); Platelet Count 101 K/mcL (140-400); Red Blood Count 3.07 M/mcL (4.19-5.50); Red Cell Distribution Width 12.8 % (11.5-14.5); Segmented Neutrophils % 78.8 %
[2017-12-19 05:04] LABS: BUN/Creatinine Ratio 31 (6-26); Blood Urea Nitrogen 14 mg/dL (8-23); Calcium 8.3 mg/dL (8.6-10.3); Carbon Dioxide 38 mEq/L (23-29); Chloride 97 mEq/L (98-107); Glucose 170 mg/dL (70-105); Osmolality,Calculated 288 (280-300); Potassium 3.9 mEq/L (3.5-5.1); Sodium 137 mEq/L (136-145); eGFR For African Americans > 60 (> 60); eGFR For Non-African Americans > 60 (> 60)
[2017-12-19] MEDS: *HR* Heparin 5,000 UNIT/ML VIAL SQ SCH ×3 (06:24→21:01)
[2017-12-19] MEDS: MethylPREDNISolone 40 MG/ML VIAL IVP SCH ×2 (06:24→16:37)
[2017-12-19] MEDS: Pantoprazole 40 MG VIAL IVP SCH (06:24)
[2017-12-19] MEDS: traZODone 50 MG TABLET PO SCH ×3 (08:13→21:00)
[2017-12-19] MEDS: *HR* LORazepam 0.5 MG TABLET PO SCH ×2 (08:13→21:01)
[2017-12-19] MEDS: Aspirin Enteric Coated 81 MG Tablet PO SCH (08:13)
[2017-12-19] MEDS: Nicotine 21 MG PATCH.TD24 TD SCH (08:13)
[2017-12-19] MEDS: OLANZapine 5 MG TAB.RAPDIS PO SCH (08:13)
[2017-12-19] MEDS: Insulin LISPRO 300 UNITS/3 ML VIAL SQ SCH ×3 (08:18→16:38)
--- NOTE | 2017-12-19 10:23 | Internal Med Progress Note ---
<TrinialexeyJose Luis wilson - Last Filed: 12/19/17 14:05> Date of Encounter: 12/19/17 Time of Encounter: 10:23 - Assessment and plan (1) Acute exacerbation of chronic obstructive airways disease Current Visit: Yes Status: Acute Assessment and plan: Acute on chronic hypoxic respiratory failure secondary to acute COPD exacerbation, and noncompliance Discharged 2 days ago with prednisone and azithromycin. CXR with bullous emphysema and no acute filtrate. Patient doing better since admission. Continue Solu-Medrol, azithromycin, duo nebs, supplemental oxygen, BiPAP Blood culture prelim growing gram + cocci, staph species not s. aureus with mecA gene (likely contaminant) Repeat blood cultures. (2) Acute on chronic respiratory failure with hypoxemia Current Visit: No Status: Acute Assessment and plan: per plan in assessment above. (3) Schizoaffective disorder, bipolar type Current Visit: No Status: Chronic Assessment and plan: Continue home medications for chronic disease management (4) IV drug abuse Current Visit: No Status: Chronic Assessment and plan: History of IV drug abuses (5) Diabetes mellitus Current Visit: No Status: Chronic Assessment and plan: Insulin sliding scale Qualifiers: Diabetes mellitus type: type 2 Diabetes mellitus remote computer terminal operator insulin use: without remote computer terminal operator use Diabetes mellitus complication status: with hyperglycemia Qualified Code(s): E11.65 - Type 2 diabetes mellitus with hyperglycemia (6) Giant bullous emphysema Current Visit: Yes Status: Chronic Assessment and plan: per plan in assessment above. (7) Stool bloody Current Visit: Yes Status: Acute Assessment and plan: Hb 9.1 from 10.3, 11.6 previously.10.3 from 11.6 yesterday. Overnight had 1 loose bowel movement with bright red blood 12/17/17. Colonoscopy completed today with findings of colon polyps and severe internal hemorrhoids. Hemoccult positive. -Continue with Protonix -Continue monitoring labs. -Fiber supplement. (8) Tobacco abuse Current Visit: No Status: Chronic Assessment and plan: Smoking cessation counseling. nicotine patch (9) Internal hemorrhoids Current Visit: Yes Status: Acute Assessment and plan: Colonoscopy completed 12/19/17 for hematochezia and blood loss anemia. Revealed Internal Hemorrhoidstwo 5mm non bleeding polyps in the ascending colon and two 8mm nonbleeding polyps in the descending colon. GI onboard, recommended daily fiber supplements. - Time Spent With Patient Total time spent is greater than 50% in coordination of care (as documented) at patient's floor/unit and/or counseling patient: - Subjective Interval history: Patient reports breathing is doing better, still short of breath walking to the restroom in the room. Reports still having a dry but wet sounding cough. He did have a stool yesterday evening with bright red blood. Patient denies fevers , chills, sweats, nausea, vomiting, chest pain, abdominal pain, changes in bowels or bladder, weakness, or loss of sensation. Discussed with patient regarding gi bleed protocol and patient declines additional testing at this time because he wants to eat. He has agreed to consider endocscopy/further eval of the gi bleed if the hemoccult confirms blood. - Constitutional Vitals: Temp Pulse Resp BP Pulse Ox 97.7 F 94 18 147/82 96 12/19/17 07:15 12/19/17 07:15 12/19/17 07:15 12/19/17 07:15 12/19/17 07:15 General appearance: Present: A&O X 3, pleasant, no acute distress, answers questions appropriately Internal Medicine: Result - Labs CBC & Chem 7: 12/19/17 04:29 12/19/17 04:29 Labs: Short CBC 12/18/17 12/18/17 12/19/17 Range/Units 16:03 21:58 04:29 WBC 5.0 (4.3-11.1) K/mcL Hgb 10.0 L 9.3 L 9.1 L (12.9-16.9) g/dL Hct 29.2 L 26.8 L 27.2 L (37.5-50.1) % Plt Count 101 L (140-400) K/mcL Neutrophils # 3.9 (1.6-8.9) K/mcL BMP 12/19/17 04:29 Sodium 137 Potassium 3.9 Chloride 97 L Carbon Dioxide 38 H BUN 14 Creatinine 0.45 L Glucose 170 H Calcium 8.3 L Consult Discharge Plan - Plan [facility] Provider[facility] - 12/22/17 9:45 am <Charles Blanco - Last Filed: 12/19/17 18:34> Date of Encounter: 12/19/17 - Assessment and plan (1) Acute exacerbation of chronic obstructive airways disease Current Visit: Yes Status: Acute (2) Tobacco abuse Current Visit: No Status: Chronic (3) Acute on chronic respiratory failure with hypoxemia Current Visit: No Status: Acute (4) Schizoaffective disorder, bipolar type Current Visit: No Status: Chronic (5) IV drug abuse Current Visit: No Status: Chronic (6) Diabetes mellitus Current Visit: No Status: Chronic Qualifiers: Diabetes mellitus type: type 2 Diabetes mellitus residential insulin use: without remote computer terminal operator use Diabetes mellitus complication status: with hyperglycemia Qualified Code(s): E11.65 - Type 2 diabetes mellitus with hyperglycemia (7) Giant bullous emphysema Current Visit: Yes Status: Chronic (8) Stool bloody Current Visit: Yes Status: Acute (9) Internal hemorrhoids Current Visit: Yes Status: Acute (10) Anemia Current Visit: No Status: Chronic Qualifiers: Anemia type: iron deficiency Iron deficiency anemia type: chronic blood loss Qualified Code(s): D50.0 - Iron deficiency anemia secondary to blood loss (chronic) - Time Spent With Patient Total time spent is greater than 50% in coordination of care (as documented) at patient's floor/unit and/or counseling patient: - Constitutional Vitals: Temp Pulse Resp BP Pulse Ox 98.9 F 78 18 95/57 100 12/19/17 15:58 12/19/17 15:58 12/19/17 15:58 12/19/17 15:58 12/19/17 15:58 Internal Medicine: Result - Labs CBC & Chem 7: 12/19/17 04:29 12/19/17 04:29 Labs: Short CBC 12/18/17 12/19/17 Range/Units 21:58 04:29 WBC 5.0 (4.3-11.1) K/mcL Hgb 9.3 L 9.1 L (12.9-16.9) g/dL Hct 26.8 L 27.2 L (37.5-50.1) % Plt Count 101 L (140-400) K/mcL Neutrophils # 3.9 (1.6-8.9) K/mcL BMP 12/19/17 04:29 Sodium 137 Potassium 3.9 Chloride 97 L Carbon Dioxide 38 H BUN 14 Creatinine 0.45 L Glucose 170 H Calcium 8.3 L - Attending Attestation I examined this patient and my medical decision-making was reviewed with the Resident Physician on 12/19/17. I agree with the documented findings, disposition and treatment plan as described except to the extent set forth below. Mr Sosa is currently in observation for COPD and anemia. He remains moderate to high risk. Mr Sosa had colonoscopy today and had hemorrhoids. Breathing has been slowly improving. No fever or chills. Exam alert Comfortable Mucus membranes dry Heart reg Less wheeze Abd soft I/P 1. Exac COPD 2. Anemia due to chronic blood loss Further diagnoses and plan as above.
--- NOTE | 2017-12-19 11:10 | Gastroenterology Consult Note ---
<JonesKelechi Jenniffer - Last Filed: 12/19/17 11:05> Date of Encounter: 12/19/17 Time of Encounter: 10:35 - Assessment and plan (1) Anemia Current Visit: No Status: Chronic Assessment and plan: Hgb on admission was 11.6 and this AM Hgb 9.1. Continue to monitor CBC and transfuse PRBC as needed. Qualifiers: Anemia type: unspecified type Qualified Code(s): D64.9 - Anemia, unspecified (2) Stool bloody Current Visit: Yes Status: Acute Assessment and plan: Pt with bright red blood per rectum. Plan for colonoscopy today, keep pt NPO. Recommend daily fiber supplement. (3) Giant bullous emphysema Current Visit: Yes Status: Chronic - Time Spent With Patient Total time spent is greater than 50% in coordination of care (as documented) at patient's floor/unit and/or counseling patient: GI History of Present Illness - Data of Consult Patient: new to practice Consult date: 12/19/17 Requesting Physician: Charles Blanco DO - Consult Narrative Reason for consult: GI bleed History of present illness: Mr. Sosa is a 62 year old male with PMHx of severe gigantic bulla emphysema COPD oxygen dependent using 2.5 L at home, remote history of IV drug abuse, hepatitis B, diabetes type 2 insulin-dependent was discharged from this facility on 12/15 and treated for COPD exacerbation, discharged on azithromycin and prednisone. He presented with difficulty breathing. He is to be using CPAP and oxygen at home, but was not using either due to not knowing how to use the equipmenet. We were consulted to evaluate BRBPR. He had one episode of loose stool with bright red blood. He originally declined endoscopy because he wanted to eat, but said he would reconsider if BRBPR returns. Hgb on admission was 11.6 and this AM Hgb 9.1. Procedures: None NSAIDs: ASA Anticoagulation: None Past Med Surg Social Fam HX - Past Medical History Medical history: COPD, diabetes, hepatitis, other Additional medical history: Hepatitis C Psychiatric history: anxiety, bipolar, depression, schizophrenia - Past Surgical History Surgical History: cholecystectomy Additional surgical history: HEP-C - Social History Smoking Status: Current every day smoker Packs per day: Half a pack per day Smokeless Tobacco Status: No Alcohol use: none Drug use: none - Family History Mother Adopted: No Family Member Ethnicity: Non- Living Status: Hx Family Cardiac Disorders: Yes Hx Family Respiratory Disorders: Yes (dad emphezema) Hx Family Cancer: Yes (lung CA) Hx Family GI Disorders: No Hx Family Endocrine Disorder: Yes (DM) Hx Family Neuromuscular Disorders: No Hx Family Neurologic Disorders: No Hx Family HEENT Disorders: No Hx Family Autoimmune Disorders: No Father Adopted: No Family Member Ethnicity: Non- Living Status: Age at : 62 Cause of : LUNG CANCER Hx Family Cardiac Disorders: No Hx Family Respiratory Disorders: Yes Hx Family Cancer: Yes (Lung CA) Hx Family GI Disorders: No Hx Family Endocrine Disorder: No Hx Family Neuromuscular Disorders: No Hx Family Neurologic Disorders: No Hx Family HEENT Disorders: No Hx Family Autoimmune Disorders: No Brother Family Member Ethnicity: Non- Living Status: Still Living Hx Family Respiratory Disorders: Yes (Emphysema) Sister Family Member Ethnicity: Non- Living Status: Still Living - Gastrointestinal Gastrointestinal: Present: as per HPI - Constitutional Constitutional: as per HPI - EENT Eyes: as per HPI Ears: Present: as per HPI Nose, mouth and throat: Present: as per HPI - Cardiovascular Cardiovascular ROS: Present: as per HPI - Respiratory Respiratory IM: Present: as per HPI - Genitourinary Genitourinary: Absent: change in color, Urinary frequency - Neurological ROS Neurological GI: Present: as per HPI - Hematologic/Lymphatic Hematologic/Lymphatic pediatric: Present: as per HPI - Musculoskeletal Musculoskeletal ROS GI: Present: as per HPI - Integumentary Integumentary GI: Present: as per HPI - Psychiatric ROS Psychiatric GI: Present: as per HPI - Endocrine Endocrine IM: Present: as per HPI - Constitutional Vitals: Temp Pulse Resp BP Pulse Ox 97.7 F 94 16 147/82 100 12/19/17 07:15 12/19/17 07:15 12/19/17 10:52 12/19/17 07:15 12/19/17 10:52 General appearance: Present: cooperative, A&O X 3, no acute distress, answers questions appropriately - Head Head exam: Present: atraumatic, normocephalic - Eye Eye exam: Present: normal appearance, sclera anicteric - ENT ENT exam: Present: mucous membranes dry - Neck Neck exam general surgery: Present: normal inspection, trachea midline - Respiratory Respiratory exam: Present: decreased breath sounds, CTAB - Cardiovascular Cardiovascular exam: Present: RRR, +S1, +S2 - GI/Abdominal GI/Abdominal exam: Present: soft, no peritoneal signs. Absent: distended, firm , guarding, tenderness - Rectal Rectal exam: Present: deferred - Extremities Exam Extremities exam: Present: warm - Neurological Exam Neurological exam: Present: no focal deficits - Psychiatric Psychiatric exam: Present: normal affect, normal mood - Skin Skin exam: Present: dry, intact, normal color, warm Results - Labs CBC & Chem 7: 12/19/17 04:29 12/19/17 04:29 Labs: Last Result Calcium 8.3 mg/dL (8.6-10.3) L 12/19/17 04:29 Troponin I < 0.03 ng/mL (< 0.04) 12/17/17 17:26 Stool Occult Blood Positive (Negative) A 12/18/17 13:30 Entire Visit Hgb 9.1 g/dL (12.9-16.9) L 12/19/17 04:29 Hct 27.2 % (37.5-50.1) L 12/19/17 04:29 E. coli (PCR) Not Detected (Not Detect) 12/17/17 17:26 Consult Discharge Plan - Plan [facility]errals: [facility]Primary Care Provider[facility] - <Nory Gutierrez - Last Filed: 12/19/17 12:40> Date of Encounter: 12/19/17 - Time Spent With Patient Total time spent is greater than 50% in coordination of care (as documented) at patient's floor/unit and/or counseling patient: GI History of Present Illness - Data of Consult Requesting Physician: Charles Blanco DO - Consult Narrative History of present illness: Mr. Sosa is a 62 year old male - Constitutional Vitals: Temp Pulse Resp BP Pulse Ox 98.1 F 84 22 115/69 99 12/19/17 12:35 12/19/17 12:35 12/19/17 12:35 12/19/17 12:35 12/19/17 12:35 Results - Labs CBC & Chem 7: 12/19/17 04:29 12/19/17 04:29 Labs: Last Result Calcium 8.3 mg/dL (8.6-10.3) L 12/19/17 04:29 Troponin I < 0.03 ng/mL (< 0.04) 12/17/17 17:26 Stool Occult Blood Positive (Negative) A 12/18/17 13:30 Entire Visit Hgb 9.1 g/dL (12.9-16.9) L 12/19/17 04:29 Hct 27.2 % (37.5-50.1) L 12/19/17 04:29 E. coli (PCR) Not Detected (Not Detect) 12/17/17 17:26 - Attending Attestation I have personally performed a face to face evaluation on this patient. I have reviewed and agree with the care plan. History and Exam by me shows: Patient seen patient with the rectal bleeding. Recommendation colonoscopy to rule out lower GI causes
[2017-12-19] MEDS ORDERED: *HR* Midazolam HCl 5 MG/5 ML VIAL IVP ONE (12:22)
[2017-12-19] MEDS ORDERED: *HR* FentaNYL (PF) 100 MCG/2 ML VIAL ONE (12:22)
[2017-12-19] MEDS ORDERED: *HR* FentaNYL (PF) 100 MCG/2 ML VIAL IVP ONE (12:40)
[2017-12-19] MEDS ORDERED: *HR* Midazolam HCl 2 MG/2 ML VIAL IVP ONE (12:40)
[2017-12-19] MEDS ORDERED: Simethicone 40 MG/0.6 ML MLS IR ONE (12:40)
--- NOTE | 2017-12-19 12:41 | Pre-Sedation Evaluation ---
Pre-sedation evaluation - Pre-sedation checklist Date of procedure: 12/19/17 Recent Vitals: Last Vital Signs Temp 98.1 F 12/19/17 12:35 Pulse 84 12/19/17 12:35 Resp 22 12/19/17 12:35 BP 115/69 12/19/17 12:35 Pulse Ox 99 12/19/17 12:35 ASA Classification *see protocol: CLASS III-Severe systemic disease
[2017-12-19] MEDS: Azithromycin 250 MG TABLET PO SCH (14:57)
[2017-12-19] MEDS: Psyllium 1 PACKET POWD.PACK PO SCH ×2 (16:38→21:01)
[2017-12-19] MEDS: OLANZapine 10 MG TAB.RAPDIS PO SCH (21:00)
[2017-12-20] MEDS: Ipratropium/Albuterol Neb 3 ML IH SCH ×4 (04:23→22:31)
[2017-12-20 05:16] LABS: Hematocrit 27.7 % (37.5-50.1); Hemoglobin 9.4 g/dL (12.9-16.9)
[2017-12-20] MEDS: *HR* Heparin 5,000 UNIT/ML VIAL SQ SCH ×3 (05:55→22:54)
[2017-12-20] MEDS: *HR* LORazepam 0.5 MG TABLET PO SCH ×2 (09:05→22:54)
[2017-12-20] MEDS: OLANZapine 5 MG TAB.RAPDIS PO SCH (09:05)
[2017-12-20] MEDS: Nicotine 21 MG PATCH.TD24 TD SCH (09:05)
[2017-12-20] MEDS: Aspirin Enteric Coated 81 MG Tablet PO SCH (09:05)
[2017-12-20] MEDS: predniSONE 20 MG TABLET PO SCH ×2 (09:05→16:23)
[2017-12-20] MEDS: Psyllium 1 PACKET POWD.PACK PO SCH ×3 (09:06→22:53)
[2017-12-20] MEDS: traZODone 50 MG TABLET PO SCH ×3 (09:06→22:54)
[2017-12-20] MEDS: Insulin LISPRO 300 UNITS/3 ML VIAL SQ SCH ×3 (09:09→16:24)
--- NOTE | 2017-12-20 09:38 | Internal Med Progress Note ---
<Jose Luis Sanchez - Last Filed: 12/20/17 13:57> Date of Encounter: 12/20/17 Time of Encounter: 09:37 - Assessment and plan (1) Acute exacerbation of chronic obstructive airways disease Current Visit: Yes Status: Acute Assessment and plan: Acute on chronic hypoxic respiratory failure secondary to acute COPD exacerbation, and noncompliance Discharged 2 days prior to admission with prednisone and azithromycin. CXR with bullous emphysema and no acute filtrate. Patient continues to have improvement. Continue prednisone, azithromycin, duo nebs, supplemental oxygen, BiPAP Blood culture grew Staphlococcus haemolyticus with mecA resistance gene (likely contaminant), will await results of additional blood cultures. (2) Acute on chronic respiratory failure with hypoxemia Current Visit: Yes Status: Acute Assessment and plan: per plan in assessment above. (3) Stool bloody Current Visit: Yes Status: Acute Assessment and plan: Hb 11.6 on arrival, with continual decline 10.3, 10.0, 9.3 and determined hemoccult positive Overnight had 1 loose bowel movement with bright red blood 12/17/17. Colonoscopy completed 12/19/17 with findings of colon polyps and severe internal hemorrhoids. Hb following colonscopy 9.3, 9.1, and 9.4 this morning. -Discontinued protonix, resume home omeprazole. -Continue monitoring labs. -Fiber supplement. (4) Anemia Current Visit: No Status: Chronic Assessment and plan: Continue monitoring labs. Hb stable at 9.4 from 9.1 Qualifiers: Anemia type: iron deficiency Iron deficiency anemia type: chronic blood loss Qualified Code(s): D50.0 - Iron deficiency anemia secondary to blood loss (chronic) (5) Tobacco abuse Current Visit: No Status: Chronic Assessment and plan: Smoking cessation counseling. nicotine patch (6) Schizoaffective disorder, bipolar type Current Visit: No Status: Chronic Assessment and plan: Continue home medications for chronic disease management Ativan 0.5mg bid for anxiety. OARRS reviewed to confirm this dosing. (7) IV drug abuse Current Visit: No Status: Chronic Assessment and plan: History of IV drug abuses (8) Diabetes mellitus Current Visit: No Status: Chronic Assessment and plan: Insulin sliding scale Qualifiers: Diabetes mellitus type: type 2 Diabetes mellitus terminal operator insulin use: without chcf use Diabetes mellitus complication status: with hyperglycemia Qualified Code(s): E11.65 - Type 2 diabetes mellitus with hyperglycemia (9) Giant bullous emphysema Current Visit: Yes Status: Chronic Assessment and plan: per plan in assessment above. (10) Internal hemorrhoids Current Visit: Yes Status: Acute Assessment and plan: Colonoscopy completed 12/19/17 for hematochezia and blood loss anemia. Revealed Internal Hemorrhoids, two 5mm non bleeding polyps in the ascending colon and two 8mm nonbleeding polyps in the descending colon. GI onboard Continue with daily fiber supplements. - Time Spent With Patient Total time spent is greater than 50% in coordination of care (as documented) at patient's floor/unit and/or counseling patient: - Subjective Interval history: Patient reports not feeling that good this morning since taking his pills. He reports some nausea and stomach upset without diarrhea or abdominal pain. Patient reports breathing is doing better, still short of breath at times, but reports this is his baseline. Patient denies fevers, chills, sweats, nausea, vomiting, chest pain, abdominal pain, changes in bowels or bladder, blood in stools, hematuria or dysuria, weakness, or loss of sensation. - Constitutional Vitals: Temp Pulse Resp BP Pulse Ox 98.2 F 81 18 125/84 94 12/20/17 07:31 12/20/17 07:31 12/20/17 09:18 12/20/17 07:31 12/20/17 09:19 General appearance: Present: A&O X 3, no acute distress, obese, answers questions appropriately - Head Head exam: Present: atraumatic, normal inspection, normocephalic - Eye Eye exam: Present: EOMI, normal appearance - ENT ENT exam: Present: mucous membranes dry, normal exam - Neck Neck exam general surgery: Present: full ROM, normal inspection, supple, trachea midline. Absent: lymphadenopathy - Respiratory Respiratory exam: Present: CTAB. Absent: rales, respiratory distress, rhonchi, wheezes - Cardiovascular Cardiovascular exam: Present: RRR, +S1, +S2 - GI/Abdominal GI/Abdominal exam: Present: normal bowel sounds, soft. Absent: distended, tenderness - Extremities Exam Extremities exam: Present: full ROM, normal inspection, pedal edema (minimal bilateral nonpitting), warm, radial pulses palpable and symmetrical. Absent: tenderness - Skin Skin exam: Present: dry, intact, normal color, warm. Absent: rash Internal Medicine: Result - Labs CBC & Chem 7: 12/20/17 04:49 12/19/17 04:29 Labs: Short CBC 12/20/17 Range/Units 04:49 Hgb 9.4 L (12.9-16.9) g/dL Hct 27.7 L (37.5-50.1) % Consult Discharge Plan - Plan [facility]errals: [facility] [[facility] Care Provider[facility] - 12/22/17 9:45 am <Charles Blanco - Last Filed: 12/20/17 17:24> Date of Encounter: 12/20/17 - Assessment and plan (1) Acute on chronic respiratory failure with hypoxemia Current Visit: Yes Status: Acute (2) Acute exacerbation of chronic obstructive airways disease Current Visit: Yes Status: Acute (3) Tobacco abuse Current Visit: No Status: Chronic (4) Schizoaffective disorder, bipolar type Current Visit: No Status: Chronic (5) IV drug abuse Current Visit: No Status: Chronic (6) Anemia Current Visit: No Status: Chronic Qualifiers: Anemia type: iron deficiency Iron deficiency anemia type: chronic blood loss Qualified Code(s): D50.0 - Iron deficiency anemia secondary to blood loss (chronic) (7) Diabetes mellitus Current Visit: No Status: Chronic Qualifiers: Diabetes mellitus type: type 2 Diabetes mellitus chcf insulin use: without terminal operator use Diabetes mellitus complication status: with hyperglycemia Qualified Code(s): E11.65 - Type 2 diabetes mellitus with hyperglycemia (8) Giant bullous emphysema Current Visit: Yes Status: Chronic (9) Stool bloody Current Visit: Yes Status: Acute (10) Internal hemorrhoids Current Visit: Yes Status: Acute - Time Spent With Patient Total time spent is greater than 50% in coordination of care (as documented) at patient's floor/unit and/or counseling patient: - Constitutional Vitals: Temp Pulse Resp BP Pulse Ox 98 F 89 16 117/70 94 12/20/17 15:20 12/20/17 15:20 12/20/17 15:30 12/20/17 15:20 12/20/17 16:34 Internal Medicine: Result - Labs CBC & Chem 7: 12/20/17 04:49 12/19/17 04:29 Labs: Short CBC 12/20/17 Range/Units 04:49 Hgb 9.4 L (12.9-16.9) g/dL Hct 27.7 L (37.5-50.1) % - Attending Attestation I examined this patient and my medical decision-making was reviewed with the Resident Physician on 12/20/17. I agree with the documented findings, disposition and treatment plan as described except to the extent set forth below. Mr Sosa is currently admitted for acute exacerbation of COPD and rectal bleeding from internal hemorrhoids. He remains moderate to high risk due to potential for worsening clinical status. Mr Sosa is breathing about baseline. He does feel ready to go home today. No fever or chills. He has had some bleeding from hemorrhoids today. No CP. No diarrhea. Wants more Ativan for his anxiety - says he takes 1mg TID at home but is not prescribed that way (ever on OARRS). Exam alert Comfortable in bed Mucus membranes dry Heart distant No wheeze heard at this time I/P 1. Exac COPD 2. Anemia due to bleeding 3. Hemorrhoids - cream added Further diagnoses and plan as above. This is a challenging situation. He has had multiple readmissions this month. He is resistant to go home when he has improved and comes back very quickly. Medically he does not need to continue to be in the hospital. He wishes to remain full code and get aggressive care. He is noncompliant with recommendations to stop smoking.
[2017-12-20] MEDS: Azithromycin 250 MG TABLET PO SCH (13:20)
[2017-12-20] MEDS ORDERED: *HR* LORazepam 0.5 MG TABLET PO ONE (13:39)
[2017-12-20] MEDS: OLANZapine 10 MG TAB.RAPDIS PO SCH (22:54)
[2017-12-21] MEDS: Ipratropium/Albuterol Neb 3 ML IH SCH ×4 (03:55→19:55)
[2017-12-21] MEDS: *HR* Heparin 5,000 UNIT/ML VIAL SQ SCH ×3 (05:54→23:02)
[2017-12-21 08:25] LABS: Hematocrit 27.8 % (37.5-50.1); Hemoglobin 9.2 g/dL (12.9-16.9)
--- NOTE | 2017-12-21 09:34 | Internal Med Progress Note ---
<Jose Luis Sanchez - Last Filed: 12/21/17 09:47> Date of Encounter: 12/21/17 Time of Encounter: 09:33 - Assessment and plan (1) Acute exacerbation of chronic obstructive airways disease Current Visit: Yes Status: Acute Assessment and plan: Acute on chronic hypoxic respiratory failure secondary to acute COPD exacerbation, and noncompliance Discharged 2 days prior to admission with prednisone and azithromycin. CXR with bullous emphysema and no acute filtrate. Patient continues to have improvement. 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 Discussed plan with patient and patient continues to feel he needs to stay hospitalized. Social work consulted for discharge planning. Likely discharge tomorrow as patient is stable and on oral medications. (2) Stool bloody Current Visit: Yes Status: Acute Assessment and plan: Hb 11.6 on arrival, with continual decline 10.3, 10.0, 9.3 and determined hemoccult positive Overnight had 1 loose bowel movement with bright red blood 12/17/17. Colonoscopy completed 12/19/17 with findings of colon polyps and severe internal hemorrhoids. Hb following colonscopy 9.3, 9.1, 9.4, and 9.2 this morning -Omeprazole -Continue monitoring labs. -Fiber supplementation. (3) Acute on chronic respiratory failure with hypoxemia Current Visit: Yes Status: Acute Assessment and plan: per plan in assessment above. (4) Schizoaffective disorder, bipolar type Current Visit: No Status: Chronic Assessment and plan: Continue home medications for chronic disease management Ativan 0.5mg bid for anxiety. OARRS reviewed to confirm this dosing. (5) IV drug abuse Current Visit: No Status: Chronic Assessment and plan: History of IV drug abuses (6) Anemia Current Visit: No Status: Chronic Assessment and plan: Continue monitoring labs. Hb 9.2 this morning. Qualifiers: Anemia type: iron deficiency Iron deficiency anemia type: chronic blood loss Qualified Code(s): D50.0 - Iron deficiency anemia secondary to blood loss (chronic) (7) Diabetes mellitus Current Visit: No Status: Chronic Assessment and plan: Insulin sliding scale Qualifiers: Diabetes mellitus type: type 2 Diabetes mellitus retirement insulin use: without retirement use Diabetes mellitus complication status: with hyperglycemia Qualified Code(s): E11.65 - Type 2 diabetes mellitus with hyperglycemia (8) Giant bullous emphysema Current Visit: Yes Status: Chronic Assessment and plan: per plan in assessment above. (9) Tobacco abuse Current Visit: No Status: Chronic Assessment and plan: Smoking cessation counseling. nicotine patch (10) Internal hemorrhoids Current Visit: Yes Status: Acute Assessment and plan: Colonoscopy completed 12/19/17 for hematochezia and blood loss anemia. Revealed Internal Hemorrhoids, two 5mm non bleeding polyps in the ascending colon and two 8mm nonbleeding polyps in the descending colon. GI onboard Continue with daily fiber supplements. - Time Spent With Patient Total time spent is greater than 50% in coordination of care (as documented) at patient's floor/unit and/or counseling patient: - Subjective Interval history: Patient reports doing okay this morning, still having some troubles with breathing but improved after breathing treatments and still having some blood from his rectum. Patient denies fevers, chills, sweats, headaches, nausea, vomiting, chest pain, abdominal pain, changes in bowels or bladder, hematuria or dysuria, weakness, or loss of sensation. - Constitutional Vitals: Temp Pulse Resp BP Pulse Ox 97.9 F 67 19 127/76 100 12/21/17 07:09 12/21/17 07:09 12/21/17 07:09 12/21/17 07:09 12/21/17 07:09 General appearance: Present: A&O X 3, no acute distress, obese, answers questions appropriately - Head Head exam: Present: atraumatic, normal inspection, normocephalic - Eye Eye exam: Present: EOMI, normal appearance - ENT ENT exam: Present: mucous membranes dry - Neck Neck exam general surgery: Present: full ROM, normal inspection - Respiratory Respiratory exam: Absent: rales, respiratory distress, rhonchi, wheezes - Cardiovascular Cardiovascular exam: Present: RRR, +S1, +S2 - GI/Abdominal GI/Abdominal exam: Present: normal bowel sounds, soft. Absent: distended, tenderness - Extremities Exam Extremities exam: Present: full ROM, normal inspection, warm, radial pulses palpable and symmetrical. Absent: pedal edema - Skin Skin exam: Present: dry, intact, normal color, warm. Absent: rash Internal Medicine: Result - Labs CBC & Chem 7: 12/21/17 07:40 12/19/17 04:29 Labs: Short CBC 12/21/17 Range/Units 07:40 Hgb 9.2 L (12.9-16.9) g/dL Hct 27.8 L (37.5-50.1) % Consult Discharge Plan - Plan Referrals: [facility],PCP [Primary Care Provider] - 12/22/17 9:45 am <Charles Blanco - Last Filed: 12/21/17 16:15> Date of Encounter: 12/21/17 - Assessment and plan (1) Acute exacerbation of chronic obstructive airways disease Current Visit: Yes Status: Acute (2) Tobacco abuse Current Visit: No Status: Chronic (3) Acute on chronic respiratory failure with hypoxemia Current Visit: Yes Status: Acute (4) Schizoaffective disorder, bipolar type Current Visit: No Status: Chronic (5) IV drug abuse Current Visit: No Status: Chronic (6) Anemia Current Visit: No Status: Chronic Qualifiers: Anemia type: iron deficiency Iron deficiency anemia type: chronic blood loss Qualified Code(s): D50.0 - Iron deficiency anemia secondary to blood loss (chronic) (7) Diabetes mellitus Current Visit: No Status: Chronic Qualifiers: Diabetes mellitus type: type 2 Diabetes mellitus intermediate manager insulin use: without retirement use Diabetes mellitus complication status: with hyperglycemia Qualified Code(s): E11.65 - Type 2 diabetes mellitus with hyperglycemia (8) Giant bullous emphysema Current Visit: Yes Status: Chronic (9) Stool bloody Current Visit: Yes Status: Acute (10) Internal hemorrhoids Current Visit: Yes Status: Acute - Time Spent With Patient Total time spent is greater than 50% in coordination of care (as documented) at patient's floor/unit and/or counseling patient: - Constitutional Vitals: Temp Pulse Resp BP Pulse Ox 97.6 F 91 23 143/84 99 12/21/17 15:21 12/21/17 15:21 12/21/17 15:21 12/21/17 15:21 12/21/17 15:21 Internal Medicine: Result - Labs CBC & Chem 7: 12/21/17 07:40 12/19/17 04:29 Labs: Short CBC 12/21/17 Range/Units 07:40 Hgb 9.2 L (12.9-16.9) g/dL Hct 27.8 L (37.5-50.1) % - Attending Attestation I examined this patient and my medical decision-making was reviewed with the Resident Physician on 12/21/17. I agree with the documented findings, disposition and treatment plan as described except to the extent set forth below. Mr Sosa is currently in observation for exac COPD. He remains moderate to high risk. Mr Sosa has been complaining of more dyspnea today. He has been sleeping a lot. No fevers or chills. Appears to have excuse why he can't leave each time. Exam Alert Resting Mucus membranes dry Heart not tachy Scant wheeze abd soft I/P 1. Exac COPD 2. Anxiety Anticipate d/c tomorrow with social work assistance Further diagnoses and plan as above.
[2017-12-21] MEDS: Nicotine 21 MG PATCH.TD24 TD SCH (10:52)
[2017-12-21] MEDS: Aspirin Enteric Coated 81 MG Tablet PO SCH (10:52)
[2017-12-21] MEDS: Psyllium 1 PACKET POWD.PACK PO SCH ×3 (10:52→23:02)
[2017-12-21] MEDS: traZODone 50 MG TABLET PO SCH ×3 (10:52→23:01)
[2017-12-21] MEDS: OLANZapine 5 MG TAB.RAPDIS PO SCH (10:52)
[2017-12-21] MEDS: *HR* LORazepam 0.5 MG TABLET PO SCH ×2 (10:53→23:01)
[2017-12-21] MEDS: Insulin LISPRO 300 UNITS/3 ML VIAL SQ SCH ×3 (11:03→17:23)
[2017-12-21] MEDS: Azithromycin 250 MG TABLET PO SCH (17:22)
[2017-12-21] MEDS: OLANZapine 10 MG TAB.RAPDIS PO SCH (23:02)
[2017-12-22] MEDS: Ipratropium/Albuterol Neb 3 ML IH SCH ×4 (03:46→20:56)
[2017-12-22] MEDS: *HR* Heparin 5,000 UNIT/ML VIAL SQ SCH ×3 (06:02→20:59)
[2017-12-22] MEDS: Insulin LISPRO 300 UNITS/3 ML VIAL SQ SCH ×3 (08:48→16:05)
[2017-12-22] MEDS: Aspirin Enteric Coated 81 MG Tablet PO SCH (08:50)
[2017-12-22] MEDS: *HR* LORazepam 0.5 MG TABLET PO SCH ×2 (08:50→21:00)
[2017-12-22] MEDS: Psyllium 1 PACKET POWD.PACK PO SCH ×3 (08:51→21:00)
[2017-12-22] MEDS: OLANZapine 5 MG TAB.RAPDIS PO SCH (08:51)
[2017-12-22] MEDS: Nicotine 21 MG PATCH.TD24 TD SCH (08:51)
[2017-12-22] MEDS: traZODone 50 MG TABLET PO SCH ×3 (08:51→21:00)
[2017-12-22] MEDS ORDERED: predniSONE 20 MG TABLET PO SCH (09:00)
[2017-12-22] MEDS ORDERED: Ondansetron ODT 4 MG TAB.RAPDIS PO PRN (09:19)
[2017-12-22] MEDS: Budesonide/Formoterol 160/4.5 MDI IH SCH ×2 (10:43→20:56)
[2017-12-22] MEDS: Azithromycin 250 MG TABLET PO SCH (13:03)
[2017-12-22 15:11] LABS: Eosinophils % 0.4 %; Hematocrit 30.2 % (37.5-50.1); Hemoglobin 9.9 g/dL (12.9-16.9); Immature Granulocytes % 0.7 % (0-4); Lymphocytes # 0.5 K/mcL (0.6-4.6); Lymphocytes % 8.3 %; Mean Corpuscular HGB Conc 32.8 g/dL (31.6-35.5); Mean Corpuscular Hemoglobin 30.2 pg (28.0-33.3); Mean Corpuscular Volume 92.1 fL (83.0-100.0); Mean Platelet Volume 10.3 fL (9.4-12.4); Monocytes # 0.3 K/mcL (0.0-1.3); Monocytes % 5.9 %; Neutrophils # 4.6 K/mcL (1.6-8.9); Platelet Count 115 K/mcL (140-400); Red Blood Count 3.28 M/mcL (4.19-5.50); Red Cell Distribution Width 13.2 % (11.5-14.5); Segmented Neutrophils % 84.7 %
--- NOTE | 2017-12-22 18:10 | Internal Med Progress Note ---
Date of Encounter: 12/22/17 Time of Encounter: 09:00 - Assessment and plan (1) Acute on chronic respiratory failure with hypoxemia Current Visit: Yes Status: Acute Assessment and plan: per plan in assessment above. (2) Acute exacerbation of chronic obstructive airways disease Current Visit: Yes Status: Acute Assessment and plan: Acute on chronic hypoxic respiratory failure secondary to acute COPD exacerbation, and noncompliance Discharged 2 days prior to admission with prednisone and azithromycin. CXR with bullous emphysema and no acute filtrate. Patient continues to have improvement. 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 Continues to say he is not ready for discharge. Repeat CXR today. Increase Prednisone back to 40mg. (3) Tobacco abuse Current Visit: No Status: Chronic Assessment and plan: Smoking cessation counseling. nicotine patch (4) Schizoaffective disorder, bipolar type Current Visit: No Status: Chronic Assessment and plan: Continue home medications for chronic disease management Ativan 0.5mg bid for anxiety. OARRS reviewed to confirm this dosing. (5) IV drug abuse Current Visit: No Status: Chronic Assessment and plan: History of IV drug abuses (6) Anemia Current Visit: No Status: Chronic Assessment and plan: Continue monitoring labs. Hemoglobin remains stable. Qualifiers: Anemia type: iron deficiency Iron deficiency anemia type: chronic blood loss Qualified Code(s): D50.0 - Iron deficiency anemia secondary to blood loss (chronic) (7) Diabetes mellitus Current Visit: No Status: Chronic Assessment and plan: Insulin sliding scale Qualifiers: Diabetes mellitus type: type 2 Diabetes mellitus termination clerk insulin use: without detention use Diabetes mellitus complication status: with hyperglycemia Qualified Code(s): E11.65 - Type 2 diabetes mellitus with hyperglycemia (8) Giant bullous emphysema Current Visit: Yes Status: Chronic Assessment and plan: per plan in assessment above. (9) Stool bloody Current Visit: Yes Status: Acute Assessment and plan: Hb 11.6 on arrival, with continual decline 10.3, 10.0, 9.3 and determined hemoccult positive Overnight had 1 loose bowel movement with bright red blood 12/17/17. Colonoscopy completed 12/19/17 with findings of colon polyps and severe internal hemorrhoids. Hb following colonscopy 9.3, 9.1, 9.4, and 9.2 this morning -Omeprazole -Continue monitoring labs. -Fiber supplementation. (10) Internal hemorrhoids Current Visit: Yes Status: Acute Assessment and plan: Colonoscopy completed 12/19/17 for hematochezia and blood loss anemia. Revealed Internal Hemorrhoids, two 5mm non bleeding polyps in the ascending colon and two 8mm nonbleeding polyps in the descending colon. GI onboard Continue with daily fiber supplements. Add hemorrhoid cream; - Time Spent With Patient Total time spent is greater than 50% in coordination of care (as documented) at patient's floor/unit and/or counseling patient: - Subjective Interval history: Mr Sosa is currently in observation for exac COPD. He remains moderate to high risk. Mr Sosa insists he is having more difficulty breathing. He is back on bipap. He does not feel he is ready to go home yet. - Constitutional Vitals: Temp Pulse Resp BP Pulse Ox 98.5 F 60 18 103/60 99 12/22/17 15:37 12/22/17 15:37 12/22/17 15:37 12/22/17 15:37 12/22/17 15:37 General appearance: Present: A&O X 3, no acute distress, obese, answers questions appropriately - Head Head exam: Present: normocephalic - Eye Eye exam: Present: conjuntiva pink - ENT ENT exam: Present: mucous membranes moist - Respiratory Respiratory exam: Present: CTAB. Absent: rales, rhonchi, wheezes - Cardiovascular Cardiovascular exam: Present: RRR. Absent: tachycardia - Extremities Exam Extremities exam: Present: warm. Absent: tenderness - Neurological Exam Neurological exam: Present: alert, oriented X3 - Skin Skin exam: Present: dry, warm Internal Medicine: Result - Labs CBC & Chem 7: 12/22/17 14:29 12/19/17 04:29 Labs: Short CBC 12/22/17 Range/Units 14:29 WBC 5.4 (4.3-11.1) K/mcL Hgb 9.9 L (12.9-16.9) g/dL Hct 30.2 L (37.5-50.1) % Plt Count 115 L (140-400) K/mcL Neutrophils # 4.6 (1.6-8.9) K/mcL - Impressions Impressions Chest X-Ray 12/22/17 09:19 IMPRESSION: 1. No acute cardiopulmonary disease. 2. Emphysema. D/ / 12/22/2017 13:44:20 Celine Kelly MD / [email or web address] Interpreting Provider: Celine Kelly MD Consult Discharge Plan - Plan Referrals: [facility] [Primary Care Provider] - 12/22/17 9:45 am
[2017-12-22] MEDS: Hydrocortisone Acetate 25 MG RECTAL SUPPOSITORY RC SCH (21:00)
[2017-12-22] MEDS: Melatonin 3 MG TABLET PO SCH (21:00)
[2017-12-22] MEDS: OLANZapine 10 MG TAB.RAPDIS PO SCH (21:00)
[2017-12-23] MEDS: Ipratropium/Albuterol Neb 3 ML IH SCH ×4 (03:45→22:21)
[2017-12-23] MEDS: *HR* Heparin 5,000 UNIT/ML VIAL SQ SCH ×3 (06:24→23:23)
[2017-12-23] MEDS: Aspirin Enteric Coated 81 MG Tablet PO SCH (09:34)
[2017-12-23] MEDS: predniSONE 20 MG TABLET PO SCH (09:35)
[2017-12-23] MEDS: *HR* LORazepam 0.5 MG TABLET PO SCH ×2 (09:35→23:22)
[2017-12-23] MEDS: traZODone 50 MG TABLET PO SCH ×3 (09:35→23:22)
[2017-12-23] MEDS: OLANZapine 5 MG TAB.RAPDIS PO SCH (09:35)
[2017-12-23] MEDS: Nicotine 21 MG PATCH.TD24 TD SCH (09:35)
[2017-12-23] MEDS: Psyllium 1 PACKET POWD.PACK PO SCH ×3 (09:36→23:23)
[2017-12-23] MEDS: Hydrocortisone Acetate 25 MG RECTAL SUPPOSITORY RC SCH ×2 (09:36→23:22)
[2017-12-23] MEDS: Insulin LISPRO 300 UNITS/3 ML VIAL SQ SCH ×3 (09:36→17:57)
[2017-12-23] MEDS: Budesonide/Formoterol 160/4.5 MDI IH SCH ×2 (10:56→22:21)
--- NOTE | 2017-12-23 18:13 | Internal Med Progress Note ---
Date of Encounter: 12/23/17 Time of Encounter: 08:00 - Assessment and plan (1) Acute on chronic respiratory failure with hypoxemia Current Visit: Yes Status: Acute Assessment and plan: He appears to be at baseline at rest. Worse with exertion. Continue current treatment plan. (2) Acute exacerbation of chronic obstructive airways disease Current Visit: Yes Status: Acute Assessment and plan: Acute on chronic hypoxic respiratory failure secondary to acute COPD exacerbation, and noncompliance Discharged 2 days prior to admission with prednisone and azithromycin. CXR with bullous emphysema and no acute filtrate. Patient continues to have improvement. 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 On steroids. Restart abx. Agrees to go to rehab. Awaiting PT and OT evals ( ordered 12/22). (3) Tobacco abuse Current Visit: No Status: Chronic (4) Schizoaffective disorder, bipolar type Current Visit: No Status: Chronic Assessment and plan: Continue home medications for chronic disease management Ativan 0.5mg bid for anxiety. OARRS reviewed to confirm this dosing. (5) IV drug abuse Current Visit: No Status: Chronic Assessment and plan: History of IV drug abuses (6) Anemia Current Visit: No Status: Chronic Assessment and plan: Continue monitoring labs. Hemoglobin remains stable. Qualifiers: Anemia type: iron deficiency Iron deficiency anemia type: chronic blood loss Qualified Code(s): D50.0 - Iron deficiency anemia secondary to blood loss (chronic) (7) Diabetes mellitus Current Visit: No Status: Chronic Assessment and plan: Insulin sliding scale Qualifiers: Diabetes mellitus type: type 2 Diabetes mellitus long winder tender insulin use: without long winder tender use Diabetes mellitus complication status: with hyperglycemia Qualified Code(s): E11.65 - Type 2 diabetes mellitus with hyperglycemia (8) Giant bullous emphysema Current Visit: Yes Status: Chronic Assessment and plan: per plan in assessment above. (9) Stool bloody Current Visit: Yes Status: Resolved Assessment and plan: Hb 11.6 on arrival, with continual decline 10.3, 10.0, 9.3 and determined hemoccult positive Overnight had 1 loose bowel movement with bright red blood 12/17/17. Colonoscopy completed 12/19/17 with findings of colon polyps and severe internal hemorrhoids. Hb following colonscopy 9.3, 9.1, 9.4, and 9.2 this morning -Omeprazole -Continue monitoring labs. -Fiber supplementation. (10) Internal hemorrhoids Current Visit: Yes Status: Chronic Assessment and plan: Colonoscopy completed 12/19/17 for hematochezia and blood loss anemia. Revealed Internal Hemorrhoids, two 5mm non bleeding polyps in the ascending colon and two 8mm nonbleeding polyps in the descending colon. GI onboard Continue with daily fiber supplements. hemorrhoid cream; - Time Spent With Patient Total time spent is greater than 50% in coordination of care (as documented) at patient's floor/unit and/or counseling patient: - Subjective Interval history: Mr Sosa is currently in observation for exac COPD. He remains moderate to high risk. Mr Sosa continues to complain of dyspnea with movement. He feels very weak and agrees to eval and rehab. No fever or chills. CXR negative yesterday. Steroids increased. - Constitutional Vitals: Temp Pulse Resp BP Pulse Ox 97.7 F 92 18 108/62 99 12/23/17 16:22 12/23/17 16:22 12/23/17 16:22 12/23/17 16:22 12/23/17 16:22 General appearance: Present: A&O X 3, obese, answers questions appropriately - Head Head exam: Present: normocephalic - Eye Eye exam: Present: conjuntiva pink - ENT ENT exam: Present: mucous membranes dry - Respiratory Respiratory exam: Present: decreased breath sounds. Absent: rales, rhonchi, wheezes - Cardiovascular Cardiovascular exam: Present: RRR. Absent: tachycardia - GI/Abdominal GI/Abdominal exam: Present: soft. Absent: tenderness - Extremities Exam Extremities exam: Present: warm - Neurological Exam Neurological exam: Present: alert, oriented X3 - Skin Skin exam: Present: dry, warm Internal Medicine: Result - Labs CBC & Chem 7: 12/22/17 14:29 12/19/17 04:29 Consult Discharge Plan - Plan Referrals: [facility] [Primary Care Provider] - 12/22/17 9:45 am
[2017-12-23] MEDS: OLANZapine 10 MG TAB.RAPDIS PO SCH (23:22)
[2017-12-23] MEDS: Melatonin 3 MG TABLET PO SCH (23:23)
[2017-12-24] MEDS: Ipratropium/Albuterol Neb 3 ML IH SCH ×4 (03:38→21:30)
[2017-12-24] MEDS: *HR* Heparin 5,000 UNIT/ML VIAL SQ SCH ×3 (05:46→21:44)
[2017-12-24] MEDS: Psyllium 1 PACKET POWD.PACK PO SCH ×3 (08:13→21:45)
[2017-12-24] MEDS: predniSONE 20 MG TABLET PO SCH (08:13)
[2017-12-24] MEDS: Aspirin Enteric Coated 81 MG Tablet PO SCH (08:13)
[2017-12-24] MEDS: traZODone 50 MG TABLET PO SCH ×3 (08:13→21:47)
[2017-12-24] MEDS: *HR* LORazepam 0.5 MG TABLET PO SCH ×2 (08:14→21:47)
[2017-12-24] MEDS: Nicotine 21 MG PATCH.TD24 TD SCH (08:14)
[2017-12-24] MEDS: Insulin LISPRO 300 UNITS/3 ML VIAL SQ SCH ×3 (08:14→16:40)
[2017-12-24] MEDS: OLANZapine 5 MG TAB.RAPDIS PO SCH (08:15)
[2017-12-24] MEDS: Hydrocortisone Acetate 25 MG RECTAL SUPPOSITORY RC SCH ×2 (08:15→21:41)
[2017-12-24] MEDS: Budesonide/Formoterol 160/4.5 MDI IH SCH ×2 (11:00→21:30)
--- NOTE | 2017-12-24 18:33 | Internal Med Progress Note ---
Date of Encounter: 12/24/17 Time of Encounter: 11:00 - Assessment and plan (1) Acute on chronic respiratory failure with hypoxemia Current Visit: Yes Status: Acute Assessment and plan: He appears to be at baseline at rest. Worse with exertion. Continue current treatment plan. (2) Acute exacerbation of chronic obstructive airways disease Current Visit: Yes Status: Acute Assessment and plan: Acute on chronic hypoxic respiratory failure secondary to acute COPD exacerbation, and noncompliance Discharged 2 days prior to admission with prednisone and azithromycin. CXR with bullous emphysema and no acute filtrate. Patient continues to have improvement. 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 Continue current treatment. Pt "wheezes" on exam - appears deliberate as he is clear when sleeping. Working on d/c planning. (3) Tobacco abuse Current Visit: No Status: Chronic Assessment and plan: Smoking cessation counseling. nicotine patch (4) Schizoaffective disorder, bipolar type Current Visit: No Status: Chronic Assessment and plan: Continue home medications for chronic disease management Ativan 0.5mg bid for anxiety. OARRS reviewed to confirm this dosing. (5) IV drug abuse Current Visit: No Status: Chronic Assessment and plan: History of IV drug abuses (6) Anemia Current Visit: No Status: Chronic Assessment and plan: Continue monitoring labs. Hemoglobin remains stable. Qualifiers: Anemia type: iron deficiency Iron deficiency anemia type: chronic blood loss Qualified Code(s): D50.0 - Iron deficiency anemia secondary to blood loss (chronic) (7) Diabetes mellitus Current Visit: No Status: Chronic Assessment and plan: Insulin sliding scale Qualifiers: Diabetes mellitus type: type 2 Diabetes mellitus environmental program manager insulin use: without environmental program manager use Diabetes mellitus complication status: with hyperglycemia Qualified Code(s): E11.65 - Type 2 diabetes mellitus with hyperglycemia (8) Giant bullous emphysema Current Visit: Yes Status: Chronic Assessment and plan: per plan in assessment above. (9) Internal hemorrhoids Current Visit: Yes Status: Chronic Assessment and plan: Colonoscopy completed 12/19/17 for hematochezia and blood loss anemia. Revealed Internal Hemorrhoids, two 5mm non bleeding polyps in the ascending colon and two 8mm nonbleeding polyps in the descending colon. GI onboard Continue with daily fiber supplements. hemorrhoid cream; - Time Spent With Patient Total time spent is greater than 50% in coordination of care (as documented) at patient's floor/unit and/or counseling patient: - Subjective Interval history: Mr Sosa is currently in observation for exac COPD. He remains moderate to high risk. Mr Sosa feels about the same. No new issues. Awaiting PT/OT evals. - Constitutional Vitals: Temp Pulse Resp BP Pulse Ox 98.1 F 86 16 99/68 100 12/24/17 11:24 12/24/17 15:00 12/24/17 15:23 12/24/17 15:00 12/24/17 15:23 General appearance: Present: A&O X 3, obese, answers questions appropriately - Head Head exam: Present: normocephalic - Eye Eye exam: Present: conjuntiva pink - ENT ENT exam: Present: mucous membranes moist - Respiratory Respiratory exam: Present: decreased breath sounds. Absent: rales, rhonchi - Cardiovascular Cardiovascular exam: Present: RRR. Absent: tachycardia - GI/Abdominal GI/Abdominal exam: Present: soft - Extremities Exam Extremities exam: Present: warm - Neurological Exam Neurological exam: Present: alert, oriented X3 - Skin Skin exam: Present: dry, warm Internal Medicine: Result - Labs CBC & Chem 7: 12/22/17 14:29 12/19/17 04:29 Consult Discharge Plan - Plan [facility] Provider[facility] - 12/22/17 9:45 am
[2017-12-24] MEDS: OLANZapine 10 MG TAB.RAPDIS PO SCH (21:46)
[2017-12-24] MEDS: Melatonin 3 MG TABLET PO SCH (21:46)
[2017-12-25] MEDS: Ipratropium/Albuterol Neb 3 ML IH SCH ×4 (03:46→21:40)
[2017-12-25] MEDS: *HR* Heparin 5,000 UNIT/ML VIAL SQ SCH ×3 (05:40→20:13)
[2017-12-25] MEDS: Insulin LISPRO 300 UNITS/3 ML VIAL SQ SCH ×3 (08:05→16:46)
[2017-12-25] MEDS: Psyllium 1 PACKET POWD.PACK PO SCH ×3 (08:13→20:12)
[2017-12-25] MEDS: Aspirin Enteric Coated 81 MG Tablet PO SCH (08:14)
[2017-12-25] MEDS: Nicotine 21 MG PATCH.TD24 TD SCH (08:14)
[2017-12-25] MEDS: *HR* LORazepam 0.5 MG TABLET PO SCH ×2 (08:14→20:11)
[2017-12-25] MEDS: predniSONE 20 MG TABLET PO SCH (08:14)
[2017-12-25] MEDS: OLANZapine 5 MG TAB.RAPDIS PO SCH (08:14)
[2017-12-25] MEDS: traZODone 50 MG TABLET PO SCH ×3 (08:14→20:11)
[2017-12-25] MEDS: Budesonide/Formoterol 160/4.5 MDI IH SCH ×2 (10:30→21:41)
--- NOTE | 2017-12-25 10:55 | Internal Med Progress Note ---
Date of Encounter: 12/25/17 Time of Encounter: 10:52 - Assessment and plan (1) Acute on chronic respiratory failure with hypoxemia Current Visit: Yes Status: Acute Assessment and plan: improved on 2 L NC at home O2 level (2) Acute exacerbation of chronic obstructive airways disease Current Visit: Yes Status: Acute Assessment and plan: Completed a course of antibiotics on prednisone 40 mg daily 2 L NC at home (3) Tobacco abuse Current Visit: Yes Status: Chronic (4) Bipolar disease, chronic Current Visit: Yes Status: Chronic (5) Schizoaffective disorder, bipolar type Current Visit: Yes Status: Chronic (6) IV drug abuse Current Visit: Yes Status: Chronic Assessment and plan: hx of IVD (7) Chronic hepatitis C Current Visit: Yes Status: Chronic Qualifiers: Hepatic coma status: without hepatic coma Qualified Code(s): B18.2 - Chronic viral hepatitis C (8) PATIENCE and COPD overlap syndrome Current Visit: Yes Status: Chronic Assessment and plan: CPAP at night - Time Spent With Patient Total time spent is greater than 50% in coordination of care (as documented) at patient's floor/unit and/or counseling patient: Greater than 35 minutes - Subjective Interval history: Mr. Sosa is a 62 year old male with a past medical history of severe gigantic bulla emphysema COPD oxygen dependent using 2.5 L at home, remote history of IV drug abuse, hepatitis B, diabetes type 2 insulin-dependent, just discharged from this facility 2 days ago and treated for COPD exacerbation, discharged on azithromycin and prednisone. Complained of recurrent difficulty breathing, the patient still smokes. Apparently he did not know how to use his CPAP at home CO2 is 42 sodium 133. Currently he is in the ER he is in a BiPAP, received Levaquin and Solu-Medrol, denies any chest pain or fevers He was admitted on 12/17 for COPD exacerbation he completed azithromycin for a course on oral prednisone Patient still complains shortness of breath with mild exertion, he has scattered bilateral wheezing He is awaiting for the [facility] rehabilitation - Constitutional Vitals: Temp Pulse Resp BP Pulse Ox 98.4 F 75 20 106/69 100 12/25/17 04:58 12/25/17 07:00 12/25/17 10:30 12/25/17 07:00 12/25/17 10:30 General appearance: Present: A&O X 3, obese, answers questions appropriately Exam: CONSTITUTIONAL: patient appears as an age appropriate male in no acute distress. EYES Clear sclerae, bilateral pupils are equal, reactive to light. EMOI. RESPIRATORY: No accessory muscle use, bilateral scant wheezing, no crackles/ rales. CARDIOVASCULAR: Regular heart rate, normal S1 and S2, no murmurs GASTROINTESTINAL: bowel sounds present, soft, no tenderness. MUSCULOSKELETAL: Joints in normal range of motion, no clubbing, no edema, no cyanosis. Bilateral peripheral pulses 2+. NEUROLOGIC: CN II to XII are grossly intact, no focal neurological deficit. Internal Medicine: Result - Labs CBC & Chem 7: 12/22/17 14:29 12/19/17 04:29 Consult Discharge Plan - Plan [facility]errals: [facility] [Primary Care Provider[facility] - 12/22/17 9:45 am
--- NOTE | 2017-12-25 17:43 | Physician Discharge Referral ---
ExtendedCare Referral Info Transfer To: SNF Provider in Charge after Transfer: PCP Institutional Level of Care: Intermediate - Diagnosis (1) Acute on chronic respiratory failure with hypoxemia Priority: Primary Status: Acute (2) Acute exacerbation of chronic obstructive airways disease Priority: Primary Status: Acute (3) Tobacco abuse Priority: Secondary Status: Chronic (4) Bipolar disease, chronic Priority: Secondary Status: Chronic (5) Schizoaffective disorder, bipolar type Priority: Secondary Status: Chronic (6) IV drug abuse Priority: Secondary Status: Chronic (7) Chronic hepatitis C Priority: Secondary Status: Chronic (8) PATIENCE and COPD overlap syndrome Priority: Secondary Status: Chronic Prognosis: Fair Aware of Diagnosis: Patient Aware of Prognosis: Patient - Transfer Medications Home Medications: Bisacodyl [Woman's Laxative] 10 mg PO DAILY PRN 07/07/17 [History] Docusate [Colace] 100 mg PO BID 07/07/17 [History] Omeprazole [PriLOSEC] 20 mg PO DAILY 07/07/17 [History] Ondansetron HCl [Zofran] 4 mg PO TID PRN 07/07/17 [History] Polyethylene Glycol 3350 [MiraLAX] 17 gm PO BID PRN 07/07/17 [History] Sildenafil Citrate [Viagra] 50 mg PO AD PRN 07/07/17 [History] Aspirin Enteric Coated [Aspirin EC] 81 mg PO DAILY 08/23/17 [History] Oxygen 2.5 l .ROUTE AD 08/23/17 [History] Acetaminophen [Tylenol Arthritis] 650 mg PO Q6H PRN 11/22/17 [History] LORazepam [Ativan] 0.5 mg PO BID 11/22/17 [History] OLANZapine [Zyprexa] 5 mg PO QAM 11/22/17 [History] OLANZapine [Zyprexa] 10 mg PO HS 11/22/17 [History] metFORMIN [Glucophage] 500 mg PO BID 11/22/17 [History] traZODone [TraZODone] 50 mg PO TID 11/22/17 [History] Albuterol Sulfate [Ventolin Hfa] 2 puff IH Q6H PRN #30 hfa.aer.ad 11/30/17 [Rx] Budesonide/Formoterol 160/4.5 [Symbicort 160/4.5] 2 puff IH BID #30 inhaler [Rx] Levalbuterol Neb [Xopenex Neb] 1.25 mg IH Q6H PRN 12/17/17 [History] Melatonin 6 mg PO HS 12/17/17 [History] Metoprolol [Lopressor] 12.5 mg PO BID 12/17/17 [History] predniSONE [PredniSONE] 2.5 mg PO DAILY 12/17/17 [History] Allergies/Adverse Reactions: 3 Allergy/AdvReac Type Severity Reaction Status Date / Time haloperidol [From Haldol] AdvReac Muscle Pain Verified 12/09/17 00:19 [place] AdvReac Weakness Verified 12/09/17 00:19 - Respiratory Orders Oxygen / L per min (2 LNC) Smoking Cessation: Smoking cessation has been advised. For more information, call the [place] [facility] Quit Line at 8-010-KTLR-NOW. - Advance Directives Living Will: No Power of Customer Retention Specialist: No Code Status: Full Code - Mobility Orders Ambulate - Rehabiliation Orders Rehab Potential: Good Rehab Orders: Evaluation for Physical Therapy, Evaluation for Occupational Therapy - Diet Orders Regular CERTIFICATION: I certify that the transfer of the above named patient to an Extended Care Facility is necessary for the continuing treatment of the diagnosis listed. The above information is true and accurate reflection of patient's current condition. Confidential - Redisclosure prohibited without a patient's written consent.
[2017-12-25] MEDS: Melatonin 3 MG TABLET PO SCH (20:11)
[2017-12-25] MEDS: OLANZapine 10 MG TAB.RAPDIS PO SCH (20:13)
[2017-12-26] MEDS: Ipratropium/Albuterol Neb 3 ML IH SCH ×4 (04:24→21:58)
[2017-12-26] MEDS: *HR* Heparin 5,000 UNIT/ML VIAL SQ SCH ×3 (05:35→20:56)
[2017-12-26] MEDS: Budesonide/Formoterol 160/4.5 MDI IH SCH ×2 (10:36→21:57)
[2017-12-26] MEDS: Nicotine 21 MG PATCH.TD24 TD SCH (11:32)
[2017-12-26] MEDS: Insulin LISPRO 300 UNITS/3 ML VIAL SQ SCH ×3 (11:32→17:25)
[2017-12-26] MEDS: OLANZapine 5 MG TAB.RAPDIS PO SCH (11:33)
[2017-12-26] MEDS: predniSONE 20 MG TABLET PO SCH (11:33)
[2017-12-26] MEDS: traZODone 50 MG TABLET PO SCH ×3 (11:33→20:56)
[2017-12-26] MEDS: Aspirin Enteric Coated 81 MG Tablet PO SCH (11:33)
[2017-12-26] MEDS: *HR* LORazepam 0.5 MG TABLET PO SCH ×2 (11:33→20:56)
[2017-12-26] MEDS: Psyllium 1 PACKET POWD.PACK PO SCH ×3 (11:34→20:56)
--- NOTE | 2017-12-26 12:06 | Internal Med Progress Note ---
Date of Encounter: 12/26/17 Time of Encounter: 12:04 - Assessment and plan (1) Acute on chronic respiratory failure with hypoxemia Current Visit: Yes Status: Acute Assessment and plan: improved on 2 L NC at home O2 level (2) Acute exacerbation of chronic obstructive airways disease Current Visit: Yes Status: Acute Assessment and plan: Completed a course of antibiotics, taper prednisone 30 mg daily 2 L NC at home (3) Tobacco abuse Current Visit: Yes Status: Chronic (4) Bipolar disease, chronic Current Visit: Yes Status: Chronic (5) Schizoaffective disorder, bipolar type Current Visit: Yes Status: Chronic (6) IV drug abuse Current Visit: Yes Status: Chronic (7) Chronic hepatitis C Current Visit: Yes Status: Chronic Qualifiers: Hepatic coma status: without hepatic coma Qualified Code(s): B18.2 - Chronic viral hepatitis C (8) PATIENCE and COPD overlap syndrome Current Visit: Yes Status: Chronic - Time Spent With Patient Total time spent is greater than 50% in coordination of care (as documented) at patient's floor/unit and/or counseling patient: - Subjective Interval history: Mr. Sosa is a 62 year old male with a past medical history of severe gigantic bulla emphysema COPD oxygen dependent using 2.5 L at home, remote history of IV drug abuse, hepatitis B, diabetes type 2 insulin-dependent, just discharged from this facility 2 days ago and treated for COPD exacerbation, discharged on azithromycin and prednisone. Complained of recurrent difficulty breathing, the patient still smokes. Apparently he did not know how to use his CPAP at home CO2 is 42 sodium 133. Currently he is in the ER he is in a BiPAP, received Levaquin and Solu-Medrol, denies any chest pain or fevers He was admitted on 12/17 for COPD exacerbation he completed azithromycin for a course on oral prednisone Patient still complains shortness of breath with mild exertion, he has scattered bilateral wheezing He is awaiting for SNF rehabilitation This morning patient is doing better, shortness of breath improved, he is ready to go for rehabilitation, he is on 2 L nc O2 sat 100% - Constitutional Vitals: Temp Pulse Resp BP Pulse Ox 98.0 F 76 18 106/75 100 12/26/17 07:21 12/26/17 07:21 12/26/17 10:38 12/26/17 07:21 12/26/17 10:38 General appearance: Present: A&O X 3, obese, answers questions appropriately Exam: CONSTITUTIONAL: patient appears as an age appropriate male in no acute distress. EYES Clear sclerae, bilateral pupils are equal, reactive to light. EMOI. RESPIRATORY: No accessory muscle use, bilateral reduced BS, scant wheezing, no crackles/rales. CARDIOVASCULAR: Regular heart rate, normal S1 and S2, no murmurs GASTROINTESTINAL: bowel sounds present, soft, no tenderness. MUSCULOSKELETAL: Joints in normal range of motion, no clubbing, no edema, no cyanosis. Bilateral peripheral pulses 2+. NEUROLOGIC: CN II to XII are grossly intact, no focal neurological deficit. Internal Medicine: Result - Labs CBC & Chem 7: 12/22/17 14:29 12/19/17 04:29 Consult Discharge Plan - Plan Referrals: [facility],PCP [Primary Care Provider] - 12/22/17 9:45 am
[2017-12-26] MEDS: OLANZapine 10 MG TAB.RAPDIS PO SCH (20:56)
[2017-12-26] MEDS: Melatonin 3 MG TABLET PO SCH (20:56)
[2017-12-27] MEDS: Ipratropium/Albuterol Neb 3 ML IH SCH ×4 (04:13→23:09)
[2017-12-27] MEDS: *HR* Heparin 5,000 UNIT/ML VIAL SQ SCH ×3 (06:16→20:15)
[2017-12-27] MEDS: Budesonide/Formoterol 160/4.5 MDI IH SCH ×2 (09:18→23:08)
[2017-12-27] MEDS: Insulin LISPRO 300 UNITS/3 ML VIAL SQ SCH ×3 (10:18→17:07)
[2017-12-27] MEDS: Aspirin Enteric Coated 81 MG Tablet PO SCH (10:29)
[2017-12-27] MEDS: OLANZapine 5 MG TAB.RAPDIS PO SCH (10:29)
[2017-12-27] MEDS: predniSONE 20 MG TABLET PO SCH (10:30)
[2017-12-27] MEDS: *HR* LORazepam 0.5 MG TABLET PO SCH ×2 (10:32→20:15)
[2017-12-27] MEDS: Nicotine 21 MG PATCH.TD24 TD SCH (10:32)
[2017-12-27] MEDS: traZODone 50 MG TABLET PO SCH ×3 (10:32→20:14)
[2017-12-27] MEDS: Psyllium 1 PACKET POWD.PACK PO SCH ×3 (10:32→20:18)
--- NOTE | 2017-12-27 14:55 | Internal Med Progress Note ---
Date of Encounter: 12/27/17 Time of Encounter: 14:53 - Assessment and plan (1) Acute on chronic respiratory failure with hypoxemia Current Visit: Yes Status: Acute Assessment and plan: improved on 2 L NC at home O2 level (2) Acute exacerbation of chronic obstructive airways disease Current Visit: Yes Status: Acute Assessment and plan: Completed a course of antibiotics, taper prednisone 30 mg daily 2 L NC at home (3) Tobacco abuse Current Visit: Yes Status: Chronic (4) Bipolar disease, chronic Current Visit: Yes Status: Chronic (5) Schizoaffective disorder, bipolar type Current Visit: Yes Status: Chronic (6) IV drug abuse Current Visit: Yes Status: Chronic (7) Chronic hepatitis C Current Visit: Yes Status: Chronic Qualifiers: Hepatic coma status: without hepatic coma Qualified Code(s): B18.2 - Chronic viral hepatitis C (8) PATIENCE and COPD overlap syndrome Current Visit: Yes Status: Chronic - Time Spent With Patient Total time spent is greater than 50% in coordination of care (as documented) at patient's floor/unit and/or counseling patient: - Subjective Interval history: Mr. Sosa is a 62 year old male with a past medical history of severe gigantic bulla emphysema COPD oxygen dependent using 2.5 L at home, remote history of IV drug abuse, hepatitis B, diabetes type 2 insulin-dependent, just discharged from this facility 2 days ago and treated for COPD exacerbation, discharged on azithromycin and prednisone. Complained of recurrent difficulty breathing, the patient still smokes. Apparently he did not know how to use his CPAP at home CO2 is 42 sodium 133. Currently he is in the ER he is in a BiPAP, received Levaquin and Solu-Medrol, denies any chest pain or fevers He was admitted on 12/17 for COPD exacerbation he completed azithromycin for a course on oral prednisone Patient still complains shortness of breath with mild exertion, he has scattered bilateral wheezing He is awaiting for SNF rehabilitation This morning patient is doing better, shortness of breath improved, he is ready to go for rehabilitation, he is on 2 L nc O2 sat 100% await for precert - Constitutional Vitals: Temp Pulse Resp BP Pulse Ox 98.0 F 88 16 114/68 100 12/27/17 11:29 12/27/17 11:29 12/27/17 11:29 12/27/17 11:29 12/27/17 09:18 General appearance: Present: A&O X 3, obese, answers questions appropriately Exam: CONSTITUTIONAL: patient appears as an age appropriate male in no acute distress. EYES Clear sclerae, bilateral pupils are equal, reactive to light. EMOI. RESPIRATORY: No accessory muscle use, bilateral clear to auscultation, no wheezing, no crackles/rales. CARDIOVASCULAR: Regular heart rate, normal S1 and S2, no murmurs GASTROINTESTINAL: bowel sounds present, soft, no tenderness. MUSCULOSKELETAL: Joints in normal range of motion, no clubbing, no edema, no cyanosis. Bilateral peripheral pulses 2+. NEUROLOGIC: CN II to XII are grossly intact, no focal neurological deficit. Internal Medicine: Result - Labs CBC & Chem 7: 12/22/17 14:29 12/19/17 04:29 Consult Discharge Plan - Plan [facility]: [facility] [Primary Care Provider[facility] - 12/22/17 9:45 am
[2017-12-27] MEDS: OLANZapine 10 MG TAB.RAPDIS PO SCH (20:14)
[2017-12-27] MEDS: Melatonin 3 MG TABLET PO SCH (20:15)
[2017-12-28] MEDS: Ipratropium/Albuterol Neb 3 ML IH SCH ×4 (04:40→21:58)
[2017-12-28] MEDS: *HR* Heparin 5,000 UNIT/ML VIAL SQ SCH ×3 (05:52→23:00)
[2017-12-28] MEDS: *HR* LORazepam 0.5 MG TABLET PO SCH ×2 (09:15→20:44)
[2017-12-28] MEDS: Psyllium 1 PACKET POWD.PACK PO SCH ×3 (09:15→20:44)
[2017-12-28] MEDS: traZODone 50 MG TABLET PO SCH ×3 (09:18→20:44)
[2017-12-28] MEDS: OLANZapine 5 MG TAB.RAPDIS PO SCH (09:18)
[2017-12-28] MEDS: predniSONE 20 MG TABLET PO SCH (09:18)
[2017-12-28] MEDS: Aspirin Enteric Coated 81 MG Tablet PO SCH (09:18)
[2017-12-28] MEDS: Nicotine 21 MG PATCH.TD24 TD SCH (09:19)
[2017-12-28] MEDS: Insulin LISPRO 300 UNITS/3 ML VIAL SQ SCH ×3 (09:22→16:37)
[2017-12-28] MEDS: Budesonide/Formoterol 160/4.5 MDI IH SCH ×2 (09:31→21:58)
--- NOTE | 2017-12-28 18:20 | Internal Med Progress Note ---
Date of Encounter: 12/28/17 Time of Encounter: 18:18 - Assessment and plan (1) COPD exacerbation Current Visit: Yes Status: Acute Assessment and plan: Slowly getting better. Will check his abg. Will continue BiPAP treatments, nebulizer treatments and supplemental oxygen. He takes prednisone at 30 mg PO daily. He is waiting for placement in a [facility] facility. (2) Acute on chronic respiratory failure with hypoxia and hypercapnia Current Visit: Yes Status: Acute Assessment and plan: The treatment is outlined above. (3) T2DM (type 2 diabetes mellitus) Current Visit: Yes Status: Acute Assessment and plan: His sugar is about controlled.Will continue diabetic diet and prn Humalog. Qualifiers: Diabetes mellitus halfway insulin use: without dedicated intermodal truck driver use Diabetes mellitus complication status: without complication Qualified Code(s): E11.9 - Type 2 diabetes mellitus without complications (4) PATIENCE (obstructive sleep apnea) Current Visit: Yes Status: Acute Assessment and plan: I hope I will be able to switch him to CPAP machine soon. He is underlying obstructive sleep apnea. - Time Spent With Patient Total time spent is greater than 50% in coordination of care (as documented) at patient's floor/unit and/or counseling patient: 25 - 35 minutes - Subjective Interval history: He seems to be doing progressively better. However, he needs his BiPAP treatments. He has CPAP machine at home; didn't use it at all. Will continue supplemental oxygen. Will continue nebulizer treatments with ipratropium/ albuterol. He was using oxygen at home as 2.5 L per minute. Currently, he is using supplemental oxygen at 3 L per minute when not using BiPAP. - Constitutional Vitals: Temp Pulse Resp BP Pulse Ox 97.5 F L 98 18 120/77 97 12/28/17 16:11 12/28/17 16:11 12/28/17 04:42 12/28/17 16:11 12/28/17 16:11 General appearance: Present: A&O X 3, obese, answers questions appropriately - Respiratory Respiratory exam: Present: CTAB. Absent: accessory muscle use, rales, rhonchi, wheezes - Cardiovascular Cardiovascular exam: Present: RRR, +S1, +S2. Absent: diastolic murmur, gallop, rubs, systolic murmur - GI/Abdominal GI/Abdominal exam: Present: normal bowel sounds, soft, no peritoneal signs. Absent: distended, tenderness - Skin Skin exam: Present: dry, intact Internal Medicine: Result - Labs CBC & Chem 7: 12/22/17 14:29 12/19/17 04:29 Consult Discharge Plan - Plan Referrals: [facility] [Primary Care Provider] - 12/22/17 9:45 am
[2017-12-28] MEDS: Melatonin 3 MG TABLET PO SCH (20:43)
[2017-12-28] MEDS: OLANZapine 10 MG TAB.RAPDIS PO SCH (20:44)
[2017-12-29] MEDS: Ipratropium/Albuterol Neb 3 ML IH SCH ×4 (03:11→21:58)
[2017-12-29 05:25] LABS: ABG Base Excess 14 mEq/L (-2 to 3); ABG HCO3 42 mEq/L (21-27); ABG Oxygen Saturation 99 % (95-98); ABG PCO2 76 mmHg (35-45); ABG PH 7.35 pH Units (7.32-7.45); ABG PO2 141 mmHg (85-104); ABG TCO2 44 mEq/L (20-26)
[2017-12-29 05:32] LABS: Basophils % 0.2 %; Eosinophils % 0.8 %; Hematocrit 29.9 % (37.5-50.1); Hemoglobin 9.6 g/dL (12.9-16.9); Immature Granulocytes % 3.6 % (0-4); Lymphocytes % 20.7 %; Mean Corpuscular HGB Conc 32.1 g/dL (31.6-35.5); Mean Corpuscular Hemoglobin 29.2 pg (28.0-33.3); Mean Corpuscular Volume 90.9 fL (83.0-100.0); Mean Platelet Volume 9.4 fL (9.4-12.4); Monocytes # 0.3 K/mcL (0.0-1.3); Neutrophils # 3.5 K/mcL (1.6-8.9); Nucleated Red Blood Cells 0.6 /100 WBC (0); Platelet Count 118 K/mcL (140-400); Red Blood Count 3.29 M/mcL (4.19-5.50); Red Cell Distribution Width 13.8 % (11.5-14.5); Segmented Neutrophils % 68.7 %
[2017-12-29 05:53] LABS: BUN/Creatinine Ratio 50 (6-26); Blood Urea Nitrogen 21 mg/dL (8-23); Calcium 9.1 mg/dL (8.6-10.3); Carbon Dioxide 37 mEq/L (23-29); Chloride 97 mEq/L (98-107); Glucose 211 mg/dL (70-105); Magnesium 1.8 mg/dL (1.6-2.6); Osmolality,Calculated 293 (280-300); Potassium 3.6 mEq/L (3.5-5.1); Sodium 137 mEq/L (136-145); eGFR For African Americans > 60 (> 60); eGFR For Non-African Americans > 60 (> 60)
[2017-12-29] MEDS: *HR* Heparin 5,000 UNIT/ML VIAL SQ SCH ×3 (06:27→23:13)
[2017-12-29] MEDS: OLANZapine 5 MG TAB.RAPDIS PO SCH (08:31)
[2017-12-29] MEDS: predniSONE 20 MG TABLET PO SCH (08:31)
[2017-12-29] MEDS: traZODone 50 MG TABLET PO SCH ×3 (08:31→20:13)
[2017-12-29] MEDS: Nicotine 21 MG PATCH.TD24 TD SCH (08:31)
[2017-12-29] MEDS: Psyllium 1 PACKET POWD.PACK PO SCH ×3 (08:31→20:14)
[2017-12-29] MEDS: Aspirin Enteric Coated 81 MG Tablet PO SCH (08:31)
[2017-12-29] MEDS: *HR* LORazepam 0.5 MG TABLET PO SCH ×2 (08:31→20:14)
[2017-12-29] MEDS: Insulin LISPRO 300 UNITS/3 ML VIAL SQ SCH ×3 (08:32→17:50)
[2017-12-29] MEDS: Budesonide/Formoterol 160/4.5 MDI IH SCH ×2 (10:55→21:59)
[2017-12-29] MEDS: Melatonin 3 MG TABLET PO SCH (20:13)
[2017-12-29] MEDS: OLANZapine 10 MG TAB.RAPDIS PO SCH (20:13)
--- NOTE | 2017-12-29 21:03 | Internal Med Progress Note ---
Date of Encounter: 12/29/17 Time of Encounter: 21:03 - Assessment and plan (1) COPD exacerbation Current Visit: Yes Status: Acute Assessment and plan: The patient is doing progressively better. The progression is very slow. He is on 4 L/m nasal cannula oxygen. He was using 2.5 L/m at home. We will continue prednisone at 30 mg daily and nebulizer treatments with DuoNeb every 6 hours. We will continue BiPAP treatments. We are trying to do placement for this patient. (2) Acute on chronic respiratory failure with hypoxia and hypercapnia Current Visit: Yes Status: Acute Assessment and plan: This is secondary to his advanced COPD. His last ABG showed PCO2 of 76 with PO2 of 141 and bicarbonate of 42. It was done on FiO2 of 32%. (3) T2DM (type 2 diabetes mellitus) Current Visit: Yes Status: Acute Assessment and plan: This patient was on diabetic diet and metformin at home. Currently, he is on diabetic diet and when necessary injections with Humalog. This is due to treatment with prednisone. Qualifiers: Diabetes mellitus slide fasteners inspector insulin use: without slide fasteners inspector use Diabetes mellitus complication status: without complication Qualified Code(s): E11.9 - Type 2 diabetes mellitus without complications (4) PATIENCE (obstructive sleep apnea) Current Visit: Yes Status: Acute Assessment and plan: He needs BiPAP treatments at this time. He has a CPAP machine at home. - Time Spent With Patient Total time spent is greater than 50% in coordination of care (as documented) at patient's floor/unit and/or counseling patient: - Subjective Interval history: The patient feels good. He does have mild cough but not wheezing. Denies resting dyspnea; on 4 L/m nasal cannula oxygen. Denies abdominal pain, nausea and vomiting. He has normal urination. The patient is able to ambulate on his own. - Constitutional Vitals: Temp Pulse Resp BP Pulse Ox 98.3 F 92 20 100/67 99 12/29/17 20:49 12/29/17 20:49 12/29/17 20:49 12/29/17 20:49 12/29/17 20:49 General appearance: Present: A&O X 3, answers questions appropriately - Respiratory Respiratory exam: Present: CTAB. Absent: accessory muscle use, rales, rhonchi, wheezes - Cardiovascular Cardiovascular exam: Present: RRR, +S1, +S2. Absent: diastolic murmur, gallop, rubs, systolic murmur - GI/Abdominal GI/Abdominal exam: Present: normal bowel sounds, soft, no peritoneal signs. Absent: distended, tenderness - Skin Skin exam: Present: dry, intact Internal Medicine: Result - Labs CBC & Chem 7: 12/29/17 05:12 12/29/17 05:12 Labs: Short CBC 12/29/17 Range/Units 05:12 WBC 5.0 (4.3-11.1) K/mcL Hgb 9.6 L (12.9-16.9) g/dL Hct 29.9 L (37.5-50.1) % Plt Count 118 L (140-400) K/mcL Neutrophils # 3.5 (1.6-8.9) K/mcL BMP 12/29/17 05:12 Sodium 137 Potassium 3.6 Chloride 97 L Carbon Dioxide 37 H BUN 21 Creatinine 0.42 L Glucose 211 H Calcium 9.1 - ABG Interpretation ABG results: ABG ABG pH 7.35 pH Units (7.32-7.45) 12/29/17 05:22 ABG pCO2 76 mmHg (35-45) H* 12/29/17 05:22 ABG pO2 141 mmHg (85-104) H 12/29/17 05:22 ABG O2 Saturation 99 % (95-98) H 12/29/17 05:22 Consult Discharge Plan - Plan Referrals: [facility] [Primary Care Provider] - 12/22/17 9:45 am
[2017-12-30] MEDS: Ipratropium/Albuterol Neb 3 ML IH SCH ×3 (04:01→16:06)
[2017-12-30] MEDS: *HR* Heparin 5,000 UNIT/ML VIAL SQ SCH ×2 (04:58→16:17)
[2017-12-30] MEDS: Psyllium 1 PACKET POWD.PACK PO SCH ×2 (08:03→16:21)
[2017-12-30] MEDS: Insulin LISPRO 300 UNITS/3 ML VIAL SQ SCH ×3 (08:03→16:23)
[2017-12-30] MEDS: predniSONE 20 MG TABLET PO SCH (08:04)
[2017-12-30] MEDS: Aspirin Enteric Coated 81 MG Tablet PO SCH (08:04)
[2017-12-30] MEDS: Nicotine 21 MG PATCH.TD24 TD SCH (08:05)
[2017-12-30] MEDS: *HR* LORazepam 0.5 MG TABLET PO SCH (08:05)
[2017-12-30] MEDS: Budesonide/Formoterol 160/4.5 MDI IH SCH (10:50)
[2017-12-30 11:33] VITALS: BP 100/69
--- NOTE | 2017-12-30 11:56 | Physician Discharge Referral ---
ExtendedCare Referral Info Transfer To: SNF Provider in Charge: Nikko Joseph Provider in Charge after Transfer: PCP Institutional Level of Care: Skilled - Diagnosis (1) Acute exacerbation of chronic obstructive airways disease Priority: Primary Status: Resolved (2) Acute on chronic respiratory failure with hypoxia and hypercapnia Priority: Primary Status: Resolved (3) Anxiety Priority: Secondary Status: Chronic (4) Chronic hepatitis C Priority: Secondary Status: Chronic (5) Diabetes mellitus Priority: Secondary Status: Chronic (6) DVT prophylaxis Priority: Secondary Status: Resolved (7) Giant bullous emphysema Priority: Secondary Status: Chronic (8) Internal hemorrhoids Priority: Secondary Status: Chronic (9) IV drug abuse Priority: Secondary Status: Chronic (10) PATIENCE (obstructive sleep apnea) Priority: Secondary Status: Chronic (11) Schizoaffective disorder, bipolar type Status: Chronic (12) Stool bloody Priority: Secondary Status: Resolved (13) T2DM (type 2 diabetes mellitus) Priority: Secondary Status: Chronic (14) Tobacco abuse Priority: Secondary Status: Chronic Aware of Diagnosis: Patient Aware of Prognosis: Patient - Transfer Medications Prescriptions: LORazepam [Ativan] 0.5 mg PO BID 5 Days #10 tablet Home Medications: Bisacodyl [Woman's Laxative] 10 mg PO DAILY PRN 07/07/17 [History] Docusate [Colace] 100 mg PO BID 07/07/17 [History] Omeprazole [PriLOSEC] 20 mg PO DAILY 07/07/17 [History] Ondansetron HCl [Zofran] 4 mg PO TID PRN 07/07/17 [History] Polyethylene Glycol 3350 [MiraLAX] 17 gm PO BID PRN 07/07/17 [History] Sildenafil Citrate [Viagra] 50 mg PO AD PRN 07/07/17 [History] Aspirin Enteric Coated [Aspirin EC] 81 mg PO DAILY 08/23/17 [History] Oxygen 2.5 l .ROUTE AD 08/23/17 [History] Acetaminophen [Tylenol Arthritis] 650 mg PO Q6H PRN 11/22/17 [History] OLANZapine [Zyprexa] 5 mg PO QAM 11/22/17 [History] OLANZapine [Zyprexa] 10 mg PO HS 11/22/17 [History] metFORMIN [Glucophage] 500 mg PO BID 11/22/17 [History] traZODone [TraZODone] 50 mg PO TID 11/22/17 [History] Albuterol Sulfate [Ventolin Hfa] 2 puff IH Q6H PRN #30 hfa.aer.ad 11/30/17 [Rx] Budesonide/Formoterol 160/4.5 [Symbicort 160/4.5] 2 puff IH BID #30 inhaler [Rx] Levalbuterol Neb [Xopenex Neb] 1.25 mg IH Q6H PRN 12/17/17 [History] Melatonin 6 mg PO HS 12/17/17 [History] Metoprolol [Lopressor] 12.5 mg PO BID 12/17/17 [History] LORazepam [Ativan] 0.5 mg PO BID 5 Days #10 tablet 12/30/17 [Rx] Nicotine Patch [Nicoderm] 21 mg TD DAILY patch.td24 12/30/17 [Rx] Potassium Chloride 20 meq PO BID tab.er.prt 12/30/17 [Rx] predniSONE [PredniSONE] 20 mg PO DAILY tablet 12/30/17 [Rx] Allergies/Adverse Reactions: 3 Allergy/AdvReac Type Severity Reaction Status Date / Time haloperidol [From Haldol] AdvReac Muscle Pain Verified 12/09/17 00:19 [place] AdvReac Weakness Verified 12/09/17 00:19 - Respiratory Orders Oxygen / L per min, Other (BIPAP. RR 10-12, IPAP 14, EPAP 6, FiO2 -40%) Smoking Cessation: Smoking cessation has been advised. For more information, call the [place] Tobacco Quit Line at 2-096-NDLB-NOW. - Advance Directives Code Status: Full Code - Mobility Orders Ambulate - Rehabiliation Orders Rehab Potential: Fair Rehab Orders: Evaluation for Physical Therapy, Evaluation for Occupational Therapy - Diet Orders No Concentrated Sweets, Cardiac CERTIFICATION: I certify that the transfer of the above named patient to an Extended Care Facility is necessary for the continuing treatment of the diagnosis listed. The above information is true and accurate reflection of patient's current condition. Confidential - Redisclosure prohibited without a patient's written consent.
--- NOTE | 2017-12-30 11:59 | Discharge Summary ---
- NOTES TO OUTPATIENT PROVIDER Notes to Outpatient Provider: With PCP, no new medications Date of Encounter: 12/30/17 Time of Encounter: 11:56 - Discharge Diagnosis (1) Acute exacerbation of chronic obstructive airways disease Priority: Primary Status: Resolved (2) Acute on chronic respiratory failure with hypoxia and hypercapnia Priority: Primary Status: Resolved (3) Anxiety Priority: Secondary Status: Chronic (4) Chronic hepatitis C Priority: Secondary Status: Chronic Qualifiers: Hepatic coma status: without hepatic coma Qualified Code(s): B18.2 - Chronic viral hepatitis C (5) Diabetes mellitus Priority: Secondary Status: Chronic Qualifiers: Diabetes mellitus type: type 2 Diabetes mellitus ocean transportation intermediary insulin use: without ocean transportation intermediary use Diabetes mellitus complication status: with hyperglycemia Qualified Code(s): E11.65 - Type 2 diabetes mellitus with hyperglycemia (6) DVT prophylaxis Priority: Secondary Status: Resolved (7) Giant bullous emphysema Priority: Secondary Status: Chronic (8) Internal hemorrhoids Priority: Secondary Status: Chronic (9) IV drug abuse Priority: Secondary Status: Chronic (10) PATIENCE (obstructive sleep apnea) Priority: Secondary Status: Chronic (11) Schizoaffective disorder, bipolar type Priority: Secondary Status: Chronic (12) Stool bloody Priority: Secondary Status: Resolved (13) T2DM (type 2 diabetes mellitus) Priority: Secondary Status: Chronic Qualifiers: Diabetes mellitus penitentiary insulin use: without penitentiary use Diabetes mellitus complication status: without complication Qualified Code(s): E11.9 - Type 2 diabetes mellitus without complications (14) Tobacco abuse Priority: Secondary Status: Chronic Hospital course: Mr. Sosa is a 62 year old male with a past medical history of severe gigantic bulla emphysema COPD oxygen dependent using 2.5 L at home, remote history of IV drug abuse, hepatitis B, diabetes type 2 insulin-dependent, just discharged from this facility 2 days ago and treated for COPD exacerbation, discharged on azithromycin and prednisone. Complained of recurrent difficulty breathing, the patient still smokes. Apparently he did not know how to use his CPAP at home CO2 is 42 sodium 133. Currently he is in the ER he is in a BiPAP, received Levaquin and Solu-Medrol, denies any chest pain or fevers He was admitted on 12/17 for COPD exacerbation He has completed a course of antibiotics and steroids in-patient He is discharged on steroid taper His chronic medical conditions are stable. He is back on his home dose of oxygen, already on CPAP at home continue [facility]AP [facility]. Follow-up with PCP and psychiatric after discharge from nursing facility. Discharge discussed with: patient, nurse, social work, case management Time spent discussing smoking cessation with patient: 3 to 10 minutes - Time Spent with Patient Total time spent providing and/or coordinating discharge services: Greater than 30 minutes - Discharge Medications Prescriptions: LORazepam [Ativan] 0.5 mg PO BID 5 Days #10 tablet Home Medications: Bisacodyl [Woman's Laxative] 10 mg PO DAILY PRN 07/07/17 [History] Docusate [Colace] 100 mg PO BID 07/07/17 [History] Omeprazole [PriLOSEC] 20 mg PO DAILY 07/07/17 [History] Ondansetron HCl [Zofran] 4 mg PO TID PRN 07/07/17 [History] Polyethylene Glycol 3350 [MiraLAX] 17 gm PO BID PRN 07/07/17 [History] Sildenafil Citrate [Viagra] 50 mg PO AD PRN 07/07/17 [History] Aspirin Enteric Coated [Aspirin EC] 81 mg PO DAILY 08/23/17 [History] Oxygen 2.5 l .ROUTE AD 08/23/17 [History] Acetaminophen [Tylenol Arthritis] 650 mg PO Q6H PRN 11/22/17 [History] OLANZapine [Zyprexa] 5 mg PO QAM 11/22/17 [History] OLANZapine [Zyprexa] 10 mg PO HS 11/22/17 [History] metFORMIN [Glucophage] 500 mg PO BID 11/22/17 [History] traZODone [TraZODone] 50 mg PO TID 11/22/17 [History] Albuterol Sulfate [Ventolin Hfa] 2 puff IH Q6H PRN #30 hfa.aer.ad 11/30/17 [Rx] Budesonide/Formoterol 160/4.5 [Symbicort 160/4.5] 2 puff IH BID #30 inhaler [Rx] Levalbuterol Neb [Xopenex Neb] 1.25 mg IH Q6H PRN 12/17/17 [History] Melatonin 6 mg PO HS 12/17/17 [History] Metoprolol [Lopressor] 12.5 mg PO BID 12/17/17 [History] LORazepam [Ativan] 0.5 mg PO BID 5 Days #10 tablet 12/30/17 [Rx] Nicotine Patch [Nicoderm] 21 mg TD DAILY patch.td24 12/30/17 [Rx] Potassium Chloride 20 meq PO BID tab.er.prt 12/30/17 [Rx] predniSONE [PredniSONE] 20 mg PO DAILY tablet 12/30/17 [Rx] Allergies/Adverse Reactions: 3 Allergy/AdvReac Type Severity Reaction Status Date / Time haloperidol [From Haldol] AdvReac Muscle Pain Verified 12/09/17 00:19 [place] AdvReac Weakness Verified 12/09/17 00:19 Date of admission: 12/17/17 20:30 Primary care physician: PCP OR Consults: 12/18/17 15:41 Consult to Gastroenterology [CONS] Routine Consulting Provider: Gastroenterology Kristin Reason for Consult: GI bleed, bright red, hemoccult positive Time Notified: 15:42 Call Completed: Yes 12/19/17 14:46 Consult to Fermentation Operator [CONS] Routine Reason for SW Consult: discharge planning. 12/22/17 15:51 PT [Consult to Physical Therapy] [CONS] Routine Comment: Evaluate, develop and implement POC Reason for Consult: Discharge planning. Does patient have active BEDREST order?: No Is patient medically & hemodynamically stable?: Yes Patient assessed for mobility or mobilized this visit?: Yes 12/22/17 15:52 OT [Consult to Occupational Therapy] [CONS] Routine Comment: Evaluate, develop and implement POC Reason for Consult: Discharge planning. Does patient have active BEDREST order?: No Is patient medically & hemodynamically stable?: Yes Patient assessed for mobility or mobilized this visit?: Yes Discharging clinician: Marco A Joseph Anticipated date of discharge: 12/30/17 - Constitutional Vitals: Temp Pulse Resp BP Pulse Ox 97.7 F 81 20 100/69 98 12/30/17 07:24 12/30/17 11:32 12/30/17 11:32 12/30/17 11:32 12/30/17 11:32 General appearance: Present: A&O X 3, pleasant, no acute distress, answers questions appropriately - Head Head exam: Present: atraumatic, normocephalic - Eye Eye exam: Present: PERRL, conjuntiva pink, sclera anicteric Pupils: Present: PERRL - Neck Neck exam general surgery: Present: supple, trachea midline. Absent: lymphadenopathy - Respiratory Respiratory exam: Present: CTAB. Absent: accessory muscle use, rales, rhonchi, wheezes - Cardiovascular Cardiovascular exam: Present: RRR, +S1, +S2. Absent: diastolic murmur, gallop, rubs, systolic murmur - GI/Abdominal GI/Abdominal exam: Present: normal bowel sounds, soft, no peritoneal signs. Absent: distended, tenderness - Extremities Exam Extremities exam: Present: warm, radial pulses palpable and symmetrical. Absent : calf tenderness, cyanotic, pedal edema - Neurological Exam Neurological exam: Present: alert, CN II-XII intact, oriented X3, no focal deficits. Absent: pronater drift, facial droop, speech deficit - Skin Skin exam: Present: dry, intact - Patient Status Disposition: Transfer SNF Condition: Fair Functional capacity at discharge: uses cane/walker Overall status at discharge: patient is progressing back to baseline - Discharge Instructions Instructions: Chest Pain (DC), Acute Respiratory Distress Syndrome (DC), Depression (DC), Diabetes Mellitus Type 2 in Adults (DC), Chronic Obstructive Pulmonary Disease (DC), Sepsis (DC), Anemia (GEN), Fall Prevention (DC), Pneumonia (DC), Cigarette Smoking and Your Health, Port Surveyor (GEN), Viral Hepatitis C, Port Surveyor (GEN) [facility] Provider[facility] - 12/22/17 9:45 am - Diet and Activity Activity: resume usual activities as tolerated, wear oxygen at all times Diet: diabetic diet, low fat, low cholesterol, low salt diet
[2017-12-30] MEDS: traZODone 50 MG TABLET PO SCH ×2 (12:09→16:20)
[2017-12-30] MEDS: OLANZapine 5 MG TAB.RAPDIS PO SCH (12:09)
[2017-12-31] MEDS ORDERED: predniSONE 20 MG TABLET PO SCH (09:00)
== END 2017-12-30 18:18 ==
LOC: 2NENU 16:50 → EMEROO 16:50 → SUATTDRO 20:30 → 2NENU 21:13
PROVIDERS: ADMIT Internal Medicine; ATTEND Internal Medicine